=== PATIENT | male | born 1970 | race Caucasian/White ===

== ENCOUNTER 2019-05-16 12:22 | Observation (INO) | payer SELFPAY ==
[2019-05-16 13:05] LABS: Hemoglobin 9.3 g/dL (14.0-18.0); Mean Corpuscular HGB CONC 28.7 g/dL (32.0-36.0); Mean Corpuscular Hemoglobin 19.8 pg (27.0-31.0); Mean Corpuscular Volume 68.8 fL (78.0-98.0); Mean Platelet Volume 6.6 fL (7.4-10.4); Platelet Count 62 thou/uL (130-400); RBC Distribution Width 20.7 % (11.5-14.5); White Blood Cell (WBC) Count 3.9 thou/uL (4.8-10.8)
[2019-05-16 13:27] LABS: ALT (SGPT) 24 U/L (8-55); AST (SGOT) 64 U/L (5-34); Alkaline Phosphatase 414 U/L (40-150); Anion Gap 14 mmol/L (10-20); BUN (Urea Nitrogen) 4 mg/dL (8.9-20.6); Bilirubin, Total 3.7 mg/dL (0.2-1.2); Calc. Creatinine Clearance 0 mL/min (70-130); Calcium 8.9 mg/dL (7.8-10.44); Carbon Dioxide 23 mmol/L (22-29); Chloride 104 mmol/L (98-107); Estimated GFR-MDRD Greater than 90; Globulin 3.6 g/dL (2.4-3.5); Glucose 250 mg/dL (70-105); Potassium 3.6 mmol/L (3.5-5.1); Protein, Total 6.6 g/dL (6.0-8.3); Sodium 137 mmol/L (136-145)
[2019-05-16 13:32] LABS: Band 10 % (5-11); Eosinophils 2 % (0-10); Hypochromia MODERATE=16-30 cells (100X) (0-5/hpf); Lymphocytes 22 % (21-51); MDiff Complete? YES; Microcytosis MODERATE=15-30 cells (100X) (0-5/hpf); Monocytes 7 % (0-10); Neutrophil 59 % (42-75); Ovalocytes MODERATE= 6-15 cells (100X) (0-1/hpf); Platelet Morphology Comment Appears Decreased; Polychromasia SLIGHT = 2-3 cells (100X) (0-2/hpf); Target Cells SLIGHT = 2-5 cells (100X) (0-1/hpf)
--- NOTE | 2019-05-16 14:15 | RAD ---
XR Chest 1 View Portable HISTORY: Dyspnea COMPARISON: 04/18/2018 FINDINGS: The heart size is normal. The lungs are well expanded without focal areas of consolidation, pneumothorax or pleural effusions. There is elevation of the right hemidiaphragm. There are postop changes and metallic hardware in the lower cervical spine. IMPRESSION: No radiographic evidence of acute cardiopulmonary process.
[2019-05-16] MEDS ORDERED: ISOVUE-370 76%-LOCM 1 ML ONE (14:50)
[2019-05-16] MEDS ORDERED: Furosemide 40 MG/4 ML VIAL ONE (15:49)
--- NOTE | 2019-05-16 17:15 | CT ---
CTA CHEST WITH CONTRAST: INDICATIONS: Shortness of breath. TECHNIQUE: Axial tomograms obtained with multiplanar reconstruction and 3D post processing, following angio prot ocol. FINDINGS: The pulmonary arteries show adequate opacification, although there is artifact in the peripheral gabbie ernestine. No definite pulmonary embolus identified. Lungs show no focal infiltrate. Mild bibasilar atelectasis. No evidence of mediastinal adenopathy. Images through the upper abdomen reveal splenic varices, suggesting portal hypertension. This has be en described previously. Small hepatic cysts and small volume ascites is noted in the upper abdomen. IMPRESSION: 1. No evidence of proximal pulmonary embolus. 2. No acute lung process. 3. Images through the upper abdomen show evidence of portal hypertension with splenic varices and sm all volume ascites. 4. Mild vascular engorgement and borderline cardiomegaly. POS: [facility]
[2019-05-16] MEDS ORDERED: HumaLOG 300 UNITS/3 ML VIAL SC PRN ×2 (18:41)
[2019-05-16] MEDS ORDERED: Dextrose 5% in Water 1,000 ML IV PRN (18:41)
[2019-05-16] MEDS ORDERED: Dextrose 50% Abboject 50 ML SYRINGE SLOW IVP PRN (18:41)
[2019-05-16] MEDS ORDERED: Acetaminophen 325 MG TAB PO PRN (19:40)
[2019-05-16] MEDS ORDERED: Ondansetron PF 4 MG/2 ML Vial IVP PRN (19:40)
[2019-05-16] MEDS ORDERED: Ondansetron ODT 4 MG TAB PO PRN (19:40)
[2019-05-16 20:40] LABS: Iron 131 ug/dL (65-175); Iron Binding Capacity, Total 334 mcg/dL (261-462)
[2019-05-16 21:06] VITALS: BMI 34.2
[2019-05-16] MEDS ORDERED: ALPRAZolam 0.5 MG TAB PO SCH (22:30)
--- NOTE | 2019-05-17 03:13 | HP ---
PRIMARY CARE PHYSICIAN: Dr. Ludwig Cabezas. CHIEF COMPLAINT: Shortness of breath with exertion. HISTORY OF PRESENT ILLNESS: Mr. Crowley is a 49-year-old man who had presented to [facility] earlier today after he experienced worsening shortness of breath and orthopnea over the last 2 days. He states that this is actually progressing over the last 2 to 3 weeks, and he has also noticed worsening swelling down his lower extremities along with his abdomen. He has a past medical history of hypertension and diabetes mellitus. During his initial workup, his troponin was found to be normal. BNP was also found to be normal at 46.0. Hemoglobin was low at 9.3, which seems to be chronic for him and his iron studies are pending. D-dimer was slightly elevated at 2.16, which has also been noted to be elevated in the past; however, CTA of the chest was negative for PE at this time, and lower extremity Doppler is now pending. He was given a dose of Lasix in the ER of 40 mg IV and he states that this has helped with his shortness of breath. Blood pressure and other vital signs remained stable. His O2 saturations remained in the 90s on room air, he states that he is supposed to use CPAP at night; however, he is not able to wear due to feeling claustrophobic. He had denied any fever, chills, any headache, blurred vision, dizziness, any chest pain, palpitations, abdominal pain, nausea, vomiting, or change in his stool. REVIEW OF SYSTEMS: All other systems reviewed and found to be negative unless mentioned in the HPI. PAST MEDICAL HISTORY: Significant for hypertension and diabetes mellitus. PAST SURGICAL HISTORY: Hernia repair, back surgery, neck surgery, and ruptured ulcer repair. PSYCHIATRIC HISTORY: Includes anxiety and depression. SOCIAL HISTORY: The patient reports drinking socially, less than 5 drinks a week. He is a former tobacco smoker. He denied any use of cigarettes currently and also denied any illicit drug use. KNOWN ALLERGIES: PIPER inhibitors, penicillins, and vancomycin. CURRENT HOME MEDICATIONS: 1. Glyburide 5 mg oral twice daily. 2. Metformin 1000 mg oral twice daily. 3. Escitalopram 20 mg oral daily. PHYSICAL EXAMINATION: VITAL SIGNS: BP 127/69, pulse 88, respirations 20, O2 saturation 100% on room air, temperature 98.9 degrees Fahrenheit. GENERAL: The patient is awake, alert, and oriented x3. He is currently lying comfortably in bed and in no acute distress. HEENT: Atraumatic, normocephalic. Pupils are round and reactive to light. Extraocular muscles intact. Moist mucous membranes noted. NECK: Soft and supple. Trachea midline. CARDIOVASCULAR: Positive S1 and S2. Regular rate and rhythm. No murmur auscultated. RESPIRATORY: Clear to auscultation bilaterally. No wheezes, rales, or rhonchi. ABDOMEN: Soft, nontender, slightly distended. Bowel sounds present. MUSCULOSKELETAL: Strength 5+ bilaterally upper and lower extremities. Pedal and radial pulses 2+ bilaterally. Moves all extremities equal. 3+ nonpitting edema noted on the left leg and 2 to 3+ noted on the right. NEUROLOGIC: Cranial nerves II through XII grossly intact. No focal deficits noted. Speech intact and normal. Gait, not assessed. SKIN: Warm, dry, and intact. No rashes. No ulceration noted. PSYCHIATRIC: Good mood and affect. LABORATORY DATA: WBC 3.9, RBC 4.70, hemoglobin 9.3, hematocrit 32.3, platelets 62. D-dimer of 2.16. Sodium 137, potassium 3.6, anion gap 14, BUN 4, creatinine 0.66, estimated GFR greater than 90, glucose 250. Troponin 0.019. BNP 46.0. DIAGNOSTIC IMAGIN. Portable chest x-ray showed no evidence of acute cardiopulmonary process. 2. CTA of chest showed no evidence of pulmonary embolism with no acute lung process noted, small volume ascites noted, and mild vasculature encroachment and borderline cardiomegaly noted. ASSESSMENT AND PLAN: 1. Shortness of breath. The patient will be treated with IV furosemide daily. We will also check an echocardiogram. D-dimer was elevated at 2.16. However, CTA of chest showed no evidence of pulmonary embolism at this time. 2. Hypertension. Continue to monitor vital signs and we will add p.r.n. medications. 3. Diabetes mellitus. Continue glyburide and add insulin sliding scale with frequent Accu-Cheks. Hold home dose of metformin. 4. Mild ascites and history of cirrhosis, currently stable at this time. 5. Deep venous thrombosis and gastrointestinal prophylaxis. CODE STATUS: Full code. DISPOSITION: Pending further workup and clinical findings. Job ID: [id number]
[2019-05-17 06:45] LABS: Anion Gap 11 mmol/L (10-20); BUN (Urea Nitrogen) 7 mg/dL (8.9-20.6); Calc. Creatinine Clearance 254 mL/min (70-130); Calcium 8.5 mg/dL (7.8-10.44); Carbon Dioxide 24 mmol/L (22-29); Chloride 105 mmol/L (98-107); Estimated GFR-MDRD Greater than 90; Glucose 120 mg/dL (70-105); Potassium 3.2 mmol/L (3.5-5.1); Sodium 137 mmol/L (136-145)
[2019-05-17 07:17] LABS: #Eosinphils 0.1 thou/uL (0.0-0.7); #Monocytes 0.4 thou/uL (0.11-0.59); #Neutrophils 1.1 thou/uL (1.40-6.50); %Basophils 1.4 % (0.0-1.0); %Eosinophils 5.6 % (0.0-10.0); %Lymphocytes 37.1 % (21.0-51.0); %Monocytes 14.8 % (0.0-10.0); %Neutrophils 41.1 % (42.0-75.0); Hemoglobin 8.9 g/dL (14.0-18.0); Mean Corpuscular HGB CONC 29.7 g/dL (32.0-36.0); Mean Corpuscular Hemoglobin 20.5 pg (27.0-31.0); Mean Corpuscular Volume 69.1 fL (78.0-98.0); Mean Platelet Volume 10.7 fL (7.4-10.4); Platelet Count 67 thou/uL (130-400); RBC Distribution Width 20.5 % (11.5-14.5); Red Blood Cell (RBC) Count 4.35 mill/uL (4.70-6.10); White Blood Cell (WBC) Count 2.6 thou/uL (4.8-10.8)
--- NOTE | 2019-05-17 07:45 | ULT ---
EXAM: Bilateral lower extremity venous Doppler US HISTORY: bilateral lower extremity edema and pain FINDINGS: Grayscale, color-flow, Doppler evaluation, spectral analysis of the bilateral lower extremities venou s structures is performed with 2-D imaging. The bilateral common femoral, superficial femoral, popliteal, posterior tibial, proximal greater saphenous and profunda femoral veins are imaged. There is normal luminal compressibility, flow, and augmentation in the visualized deep venous structu res of the bilateral lower extremities. IMPRESSION: No evidence of a deep vein thrombosis in either lower extremity.
[2019-05-17] MEDS ORDERED: Potassium Chloride 20 MEQ TAB PO SCH (08:15)
[2019-05-17] MEDS: Furosemide 40 MG/4 ML VIAL SLOW IVP SCH (08:26)
[2019-05-17] MEDS: Escitalopram Oxalate 20 mg Tablet PO SCH (08:26)
[2019-05-17] MEDS: glyBURIDE 5 MG TAB PO SCH ×2 (08:26→17:45)
[2019-05-17 08:36] LABS: Hypochromia MODERATE=16-30 cells (100X) (0-5/hpf); MDiff Complete? YES; Microcytosis MODERATE=15-30 cells (100X) (0-5/hpf); Ovalocytes SLIGHT = 2-5 cells (100X) (0-1/hpf); Platelet Morphology Comment Appears Decreased; Polychromasia SLIGHT = 2-3 cells (100X) (0-2/hpf); Reflex for Review?? NO; Target Cells SLIGHT = 2-5 cells (100X) (0-1/hpf)
[2019-05-17] MEDS ORDERED: Enoxaparin Sodium 40 MG/0.4 ML SYRINGE SC SCH (09:00)
--- NOTE | 2019-05-17 10:29 | PDOC.HOSPP ---
- Subjective Encounter Date: 05/17/19 Encounter Time: 10:30 Subjective: Patient states he continues to have intermittent shortness of breath. This is more prominent when he is asleep and suddenly wakes up gasping. States he feels as if he stops breathing or isnt getting enough air. Has tried sleeping with the head of the bed up and sat in a chair and still has the same trouble. Reports vomiting twice, once yesterday after dinner and after breakfast this morning. States its a small amount of food without any blood. Typically starts with coughing following by dry heaving and then vomits. Other times in between he has had coughing fits with dry heaving. No abdominal pain. Afebrile. Denies sweats or tremors. Admits to drinking 6 beers a day approximately 5-6 days a week. He often drinks at night but some days drinks in the morning. Reports "checking" himself by going a week without drinking every once in a while, and has not experienced any withdrawal symptoms in the past. No history of seizures or tremors or agitation. - Objective Vital Signs & Weight: Vital Signs (12 hours) Temp Pulse Resp BP Pulse Ox 05/17/19 07:48 98.2 F 81 24 H 138/67 100 05/17/19 04:26 98.9 F 79 13 147/70 H 97 Weight Weight 259 lb 8 oz I&O: 05/16/19 05/17/19 05/18/19 06:59 06:59 06:59 Intake Total 500 Balance 500 Result Diagrams: 05/17/19 06:12 05/17/19 06:12 Additional Labs: Accuchecks 05/16/19 21:05 POC Glucose 212 H ROS - Review of Systems Constitutional: reports: malaise. denies: fever, chills, sweats, weakness, other Eyes: denies: pain, vision change, conjunctivae inflammation, eyelid inflammation, redness ENT: denies: ear pain, ear discharge, nose pain, nose discharge, nose congestion , mouth pain, mouth swelling, throat pain, throat swelling, other Respiratory: reports: cough, dry Cardiovascular: reports: paroxysmal noc. dyspnea. denies: chest pain, palpitations, orthopnea, edema, light headedness Gastrointestinal: reports: nausea, vomitting. denies: abdominal pain, diarrhea , constipation, melena, hematochezia Genitourinary: denies: dysuria, frequency, incontinence, hematuria, retention Musculoskeletal: denies: neck pain, shoulder pain, arm pain, back pain, hand pain, leg pain, foot pain Skin: denies: rash, lesions Neurological: denies: weakness, numbness, incoordination, change in speech, confusion, seizures - Medication Medications: Active Medications Generic Name Dose Route Start Last Admin Trade Name Merlyn PRN Reason Stop Dose Admin Enoxaparin Sodium 40 mg 05/17/19 09:00 05/17/19 08:26 Lovenox SC 40 mg 0900 HARPREET Administration Escitalopram Oxalate 20 mg 05/17/19 09:00 05/17/19 08:26 Lexapro PO 20 mg DAILY HARPREET Administration Furosemide 40 mg 05/17/19 09:00 05/17/19 08:26 Lasix SLOW IVP 40 mg DAILY HARPREET Administration Glyburide 5 mg 05/17/19 07:30 05/17/19 08:26 Diabeta PO 5 mg BID-AC HARPREET Administration - Exam NAD, awake alert Eye: PERRL, scleral icterus ENT: normocephalic atraumatic, no oropharyngeal lesions, moist mucosa Neck: supple, symmetric, no JVD, no thyromegaly, no lymphadenopathy Heart: RRR, no murmur, no gallops, no rubs, normal peripheral pulses Respiratory: CTAB, no wheezes, no rales, no ronchi, normal chest expansion, no tachypnea Gastrointestinal: soft, non-tender, normal bowel sounds, no palpable masses, distended Extremities: no cyanosis, no clubbing, 1+ LE edema Skin: normal turgor, no lesions, no rashes Neurological: CN's grossly intact, normal sensation to touch, no weakness, no focal deficits, no new deficit Musculoskeletal: normal tone, normal strength, no muscle wasting Psychiatric: normal affect, normal behavior, A&O x 3 Hosp A/P (1) Shortness of breath Code(s): R06.02 - SHORTNESS OF BREATH Status: Acute Plan: No associated chest pain. Happens intermittently while he is sleeping. D-Dimer elevated, CTA: negative for PE. Has bilateral doppler due to long standing left leg swelling, no evidence of DVT. Sats normal. Continue to monitor. Known history of diastolic dysfunction, EF 45-50% on Echo in 2017. BNP normal. Will discuss with Dr. Cabrera if repeat indicated. (2) Vomiting Code(s): R11.10 - VOMITING, UNSPECIFIED Status: Acute Plan: Occurs following coughing fit. Will try treating underlying cough with Guaifenesin and Tessalon. Continue anti-emetics. (3) Abnormal LFTs Code(s): R79.89 - OTHER SPECIFIED ABNORMAL FINDINGS OF BLOOD CHEMISTRY Status : Acute Plan: Hyperbilirubinemia, known to have alcohol induced liver disease. Will recheck LFTs today including direct bili. RUQ US. Will check ammonia. Noted to have portal HTN on CTA. (4) Hypokalemia Code(s): E87.6 - HYPOKALEMIA Status: Acute Plan: Replace and continue to monitor. (5) Alcohol abuse Code(s): F10.10 - ALCOHOL ABUSE, UNCOMPLICATED Status: Acute Plan: ASE protocol. Ativan 0.5 mg x 1, as seems to be experiencing some anxiety. No tremors at present. Continue to monitor.
[2019-05-17] MEDS ORDERED: Lorazepam 0.5 MG TAB PO SCH (10:30)
[2019-05-17 11:19] LABS: ALT (SGPT) 24 U/L (8-55); AST (SGOT) 62 U/L (5-34); Alkaline Phosphatase 294 U/L (40-150); Bilirubin, Direct 2.8 mg/dL (0.1-0.3); Bilirubin, Total 8.5 mg/dL (0.2-1.2); Lipase 26 U/L (8-78); Protein, Total 6.9 g/dL (6.0-8.3)
[2019-05-17 15:44] LABS: INR-International Normal Ratio 2.1; Prothrombin Time 23.2 SEC (12.0-14.7)
--- NOTE | 2019-05-17 18:29 | ULT ---
ULTRASOUND ABDOMEN: Date: 05/17/19 HISTORY: Abdominal distention, cirrhosis, elevated LFTs. FINDINGS: The liver demonstrates coarse and increased echogenicity with irregular surface consistent with cirrh osis. There is a 1.6 cm cyst in the inferior aspect of the right lobe of the liver. The patient is po st cholecystectomy. The common duct measures 8 mm in diameter. An 9 mm cyst is seen in the left lobe of the liver. The spleen is enlarged, measuring 15 cm in length. There is a 2.3 cm exophytic cyst farnaz sing from the left kidney. The right kidney is normal. The right kidney and visualized portions of th e pancreas, aorta, and IVC are normal. There is centrifugal flow in the portal veins. No definite evidence of portal vein thrombosis is seen . There are splenic varices. No ascites is identified. IMPRESSION: 1. Cirrhosis of the liver. 2. Splenomegaly. 3. Centrifugal flow in the portal veins. 4. Hepatic cysts. 5. Left renal cyst. POS: [facility]
[2019-05-17] MEDS ORDERED: ALPRAZolam 0.5 MG TAB PO SCH (23:59)
[2019-05-18 05:24] LABS: INR-International Normal Ratio 2.1; Prothrombin Time 23.3 SEC (12.0-14.7)
[2019-05-18 05:40] LABS: Anisocytosis SLIGHT = 6-15 cells (100X) (0-5/hpf); Band 8 % (5-11); Eosinophils 3 % (0-10); Hemoglobin 9.1 g/dL (14.0-18.0); Lymphocytes 35 % (21-51); MDiff Complete? YES; Mean Corpuscular HGB CONC 29.1 g/dL (32.0-36.0); Mean Corpuscular Hemoglobin 20.1 pg (27.0-31.0); Mean Corpuscular Volume 69.2 fL (78.0-98.0); Mean Platelet Volume 7.2 fL (7.4-10.4); Monocytes 12 % (0-10); Neutrophil 42 % (42-75); Platelet Count 73 thou/uL (130-400); Platelet Morphology Comment Appears Decreased; Poikilocytosis SLIGHT = 6-15 cells (100X) (0-5/hpf); RBC Distribution Width 20.5 % (11.5-14.5); Red Blood Cell (RBC) Count 4.52 mill/uL (4.70-6.10); Target Cells SLIGHT = 2-5 cells (100X) (0-1/hpf); White Blood Cell (WBC) Count 3.5 thou/uL (4.8-10.8)
[2019-05-18 05:42] LABS: Anion Gap 11 mmol/L (10-20); BUN (Urea Nitrogen) 8 mg/dL (8.9-20.6); Calc. Creatinine Clearance 204 mL/min (70-130); Calcium 8.8 mg/dL (7.8-10.44); Carbon Dioxide 25 mmol/L (22-29); Chloride 105 mmol/L (98-107); Estimated GFR-MDRD Greater than 90; Glucose 124 mg/dL (70-105); Potassium 3.5 mmol/L (3.5-5.1); Sodium 137 mmol/L (136-145)
[2019-05-18] MEDS: Escitalopram Oxalate 20 mg Tablet PO SCH (08:23)
[2019-05-18] MEDS: Furosemide 40 MG/4 ML VIAL SLOW IVP SCH (08:23)
[2019-05-18] MEDS: glyBURIDE 5 MG TAB PO SCH (08:26)
[2019-05-18 09:08] LABS: ALT (SGPT) 23 U/L (8-55); AST (SGOT) 58 U/L (5-34); Albumin 2.7 g/dL (3.5-5.0); Alkaline Phosphatase 205 U/L (40-150); Bilirubin, Direct 2.2 mg/dL (0.1-0.3); Bilirubin, Total 6.1 mg/dL (0.2-1.2); Protein, Total 6.4 g/dL (6.0-8.3)
[2019-05-18 16:08] VITALS: BP 153/73; TEMP 98
--- NOTE | 2019-05-18 19:19 | DIS ---
DATE OF ADMISSION: 05/16/2019 DATE OF DISCHARGE: 05/18/2019 CONSULTING PHYSICIAN: None. DISCHARGE DIAGNOSES: 1. Elevated LFTs including hyperbilirubinemia secondary to alcohol induced cirrhosis. 2. Alcohol abuse. 3. Anxiety causing occasional shortness of breath at night. 4. Hypertension. 5. Type 2 diabetes mellitus. 6. Obesity. HOSPITAL COURSE: Mr. Crowley is a 49-year-old gentleman who presented due to concerns of occasional shortness of breath. He is experiencing while sleeping. The patient described no shortness of breath when lying flat. No shortness of breath with exertion and stated that he would suddenly wake up gasping for air and feeling like his heart was racing. He states he has been off alcohol recently and every once in a while, takes 1 week break from his heavy drinking. He normally drinks 6 to 8 beers a day. He does report feeling anxious. Nonetheless, he underwent further investigations including a CT angiogram which did not show any evidence of PE. He had no acute lung process noted. There were however, changes seen involving the liver with evidence of portal hypertension and splenic varices as well as small volume ascites. There was mild vascular engorgement and borderline cardiomegaly present as well. Due to longstanding left lower extremity edema, he underwent venous Dopplers, which showed no evidence of DVT. The patient states this is longstanding and frequently responds well to diuretics. He underwent a chest x-ray that showed no evidence of acute cardiopulmonary process. Laboratory studies done had demonstrated elevated liver function tests with a bilirubin of 3.7, which trended upward to 8.5 and then back down to 6.1 on day of discharge. His AST was 64, ALT was 24. These remained stable throughout his stay and slightly improved. The patient is known to have chronic anemia associated with his heavy alcohol intake. His renal function was within normal range. We did check his coagulation studies given the underlying cirrhosis and he had a normal INR of 2.1 and PTT 23.2. Following further discussion with Dr. Flores, it was advised that we check his AFP again due to his underlying alcoholism and cirrhosis. This was normal at 6.5. The patient did undergo further imaging with an abdominal ultrasound, which showed cirrhosis of the liver, splenomegaly, centrifugal flow in the portal veins, hepatic cysts and left renal cyst. No ascites was demonstrated. He had an echocardiogram done, which showed an EF of 50% to 55% with a normal-sized left ventricle and left atrium. There was mild mitral regurgitation and mild tricuspid regurgitation. The patient remained symptom-free throughout his stay and had no further episodes since given Ativan. He denies having any chest pain. He was experiencing occasional vomiting after meals, but that has resolved. He has been tolerating his diet during his stay with no further vomiting. Denies any abdominal pain. Has been mobilizing without any shortness of breath on exertion or lightheadedness. The patient feels well in himself and eager for discharge home. The patient was seen and examined on day of discharge. CONDITION: Stable. ACTIVITY: As tolerated. DIET: Heart healthy/diabetic diet. DISCHARGE MEDICATIONS: 1. The patient was given a prescription for Ativan 0.5 mg p.o. every 4-6 hours as needed for anxiety, but mainly requires this at bedtime as his episodes occur while he is sleeping. He was given a quantity of 10 tablets only. 2. Advised to resume all other home medications. FOLLOWUP: The patient advised to follow up with his primary care physician within 1 week for further management of his anxiety as well as repeat laboratory studies including LFTs. The patient will benefit from referral with regard to his alcohol-related cirrhosis. He is also interested in attending alcoholic anonymous program as he is interested in discontinuing alcohol intake. Information sheets provided to the patient. DISPOSITION: The patient medically cleared for discharge home on 05/18/2019. The patient's case discussed with attending who agrees with plan of care as described above. Job ID: [id number]
== END 2019-05-18 17:08 | disposition home or self-care (01) ==
LOC: MERGE 12:22 → ERS 12:22 → 2SW 15:25
PROVIDERS: ADMIT Internal Medicine; ATTEND Internal Medicine
DX: R06.02 Shortness of breath (principal); K76.6 Portal hypertension; K70.31 Alcoholic cirrhosis of liver with ascites; E80.6 Other disorders of bilirubin metabolism; I10 Essential (primary) hypertension; E11.9 Type 2 diabetes mellitus without complications; F41.8 Other specified anxiety disorders; F32.9 Major depressive disorder, single episode, unspecified; E66.9 Obesity, unspecified; Z68.30 Body mass index [BMI] 30.0-30.9, adult; Z87.891 Personal history of nicotine dependence; Z79.84 Long term (current) use of oral hypoglycemic drugs; Z79.899 Other long term (current) drug therapy; Z88.0 Allergy status to penicillin; Z88.1 Allergy status to other antibiotic agents; Z88.8 Allergy status to other drugs, medicaments and biological substances
CPT/HCPCS: 36415; 36416; 71045; 71275; 76700; 80048; 80053; 80076; 82105; 82140; 82728; 83540; 83550; 83605; 83690; 83880; 84145; 84484; 85025; 85379; 85610; 93005; 93306; 93970; 96372; 96374; 96375; 96376; G0378; J1650; J1940; J2405; Q9966

== ENCOUNTER 2020-04-23 23:25 | Inpatient (IN) | payer SELFPAY, OTHER ==
[2020-04-24 00:28] LABS: ALT (SGPT) 53 U/L (8-55); AST (SGOT) 300 U/L (5-34); Alkaline Phosphatase 254 U/L (40-110); Anion Gap 22 mmol/L (10-20); BUN (Urea Nitrogen) 10 mg/dL (8.9-20.6); Band 48 % (5-11); Bilirubin, Total 8.1 mg/dL (0.2-1.2); Calc. Creatinine Clearance 0 mL/min (70-130); Calcium 8.9 mg/dL (7.8-10.44); Carbon Dioxide 18 mmol/L (22-29); Chloride 93 mmol/L (98-107); Estimated GFR-MDRD 84; Glucose 430 mg/dL (70-105); Hemoglobin 10.2 g/dL (14.0-18.0); Lymphocytes 3 % (21-51); MDiff Complete? YES; Mean Corpuscular HGB CONC 30.1 g/dL (32.0-36.0); Mean Corpuscular Volume 79.5 fL (78.0-98.0); Mean Platelet Volume 7.2 fL (7.4-10.4); Monocytes 4 % (0-10); Neutrophil 45 % (42-75); Platelet Count 42 thou/uL (130-400); Platelet Morphology Comment Appears Decreased; Potassium 3.7 mmol/L (3.5-5.1); RBC Distribution Width 19.7 % (11.5-14.5); Red Blood Cell (RBC) Count 4.26 mill/uL (4.70-6.10); Reflex for Review?? NO; Sodium 129 mmol/L (136-145); White Blood Cell (WBC) Count 8.8 thou/uL (4.8-10.8)
[2020-04-24 01:00] LABS: CKMB 29.4 ng/mL (0-6.6)
[2020-04-24] MEDS ORDERED: Multivitamins, Adult 10 ML, Thiamine HCl 100 MG, Folic Acid 1 MG in Dextrose 5 %-0.45 %... IV SCH (01:00)
[2020-04-24 01:02] LABS: Amphetamine Not Detected (NotDetected); Bacteria/HPF None Seen HPF (None Seen); Barbiturates Screen Not Detected (NotDetected); Benzodiazepine Screen Not Detected (NotDetected); Bilirubin Negative (Negative); Blood, Urine 3+ (Negative); Clarity Clear (Clear); Cocaine Metabolite Screen Not Detected (NotDetected); Glucose, Urine (Dipstick) Greater than 1000 mg/dL (Negative); Ketone, Urine Negative (Negative); Leukocyte Negative Leu/uL (Negative); Medtox Reader # READER 4; Methadone Not Detected (NotDetected); Methamphetamine Not Detected (NotDetected); Nitrite Negative (Negative); Opiate Screen Not Detected (NotDetected); Oxycodone Screen Not Detected (NotDetected); Phencyclidine (PCP) Not Detected (NotDetected); Protein, Urine (Dipstick) 20 mg/dL (Neg-Trace); RBC/HPF 0-3 HPF (0-3); Specific Gravity, Urine 1.022 (1.002-1.036); Squamous Epithelial 0-3 HPF (0-3); THC/Cannabinoid Screen Not Detected (NotDetected); Tricyclic Screen Not Detected (NotDetected); Urobilinogen Normal mg/dL (Less than 2); WBC/HPF 0-3 HPF (0-3); pH, Urine 5.5 (5.0-9.0)
[2020-04-24 01:03] LABS: Medtox Control Line Valid? VALID (VALID)
[2020-04-24 01:04] LABS: Acetaminophen Less than 6.0 mcg/mL (10.0-30.0); Alcohol Less than 10 mg/dL (Less than 10); Salicylate Less than 8.0 mg/dL (15.0-30.0)
[2020-04-24] MEDS ORDERED: Morphine 4 MG/ML VIAL ONE (01:45)
[2020-04-24] MEDS ORDERED: Acetaminophen 325 MG TAB ONE ×2 (01:45→02:24)
[2020-04-24] MEDS ORDERED: Dextrose 50% Abboject 50 ML SYRINGE SLOW IVP PRN (01:54)
[2020-04-24] MEDS ORDERED: Lorazepam 2 MG/ML VIAL SLOW IVP PRN (01:54)
[2020-04-24] MEDS ORDERED: HYDROcodone/Acetaminophen 5/325 mg Tablet PO PRN (01:54)
[2020-04-24] MEDS ORDERED: Dextrose 5% in Water 1,000 ML IV PRN (01:54)
[2020-04-24] MEDS ORDERED: Ondansetron PF 4 MG/2 ML Vial IVP PRN (01:54)
[2020-04-24] MEDS ORDERED: Ondansetron ODT 4 MG TAB PO PRN (01:54)
--- NOTE | 2020-04-24 02:06 | PDOC.HHP ---
Hospitalist HPI - History of Present Illness weakness History of Present Illness: Case of an 49y/o male with pmhx of cirrohsisi secondary to alcohol abuse, dm htn and pud who comes to hospital due to generalize weakness. apparently patient was on his usual state of health until wednesday morning when he woke up and refers he was almost unable to move. he states that to go to the bathroom he had to crawl on the floor and suffered multiple falls trying to walk. weakness was progressive and not improving for which he was brought to hospital for evaluation. At the ED patient was dx with rhambdomyolysis and had a negative trauma workup for which hospitalist was called for further evaluation and management. patient states last time he drank alcohol was on wednesday evening and has not had any withdrawal symptoms, patient refers whole body muscle aches and generalize weakness. denies any fever chills, focal weakness does refers he felt a bit confused but no LOC. patient states he has a poor diet, last time he ate was 2 days ago, mother states he sometimes is on the bed the whole day Hospitalist ROS - Review of Systems All other systems reviewed; all pertinent +/- noted in HPI/Subj Hospitalist History - Past Medical History Source: patient, family Cardiac: reports: HTN Endocrine: reports: Diabetes - Past Surgical History Past Surgical History: reports: Hernia Repair - Family History Family History: reports: diabetes mellitus, hypertension - Social History Smoking Status: Current every day smoker Alcohol: reports: Heavy Drugs: reports: none - Exam General Appearance: NAD, awake alert Eye: PERRL, anicteric sclera ENT: no oropharyngeal lesions ENT - other findings: raccon eyes, bruise nose Neck: supple, symmetric, no JVD, no thyromegaly Heart: RRR, no murmur, no gallops Respiratory: CTAB, no wheezes, no rales, no ronchi Gastrointestinal: soft, non-tender, non-distended Extremities: no cyanosis, no clubbing, no edema Skin: normal turgor, no lesions Neurological: cranial nerve grossly intact, normal sensation to touch Musculoskeletal: normal tone, generalized weakness Psychiatric: normal affect, normal behavior, A&O x 3 Hospitalist Results - Labs Result Diagrams: 04/23/20 23:40 04/23/20 23:40 Lab results: WBC 8.8 thou/uL (4.8-10.8) 04/23/20 23:40 Hgb 10.2 g/dL (14.0-18.0) L 04/23/20 23:40 Hct 33.9 % (42.0-52.0) L 04/23/20 23:40 MCV 79.5 fL (78.0-98.0) 04/23/20 23:40 Plt Count 42 thou/uL (130-400) L 04/23/20 23:40 Band Neuts % (Manual) 48 % (5-11) H 04/23/20 23:40 Sodium 129 mmol/L (136-145) L 04/23/20 23:40 Potassium 3.7 mmol/L (3.5-5.1) 04/23/20 23:40 Chloride 93 mmol/L (98-107) L 04/23/20 23:40 Carbon Dioxide 18 mmol/L (22-29) L 04/23/20 23:40 BUN 10 mg/dL (8.9-20.6) 04/23/20 23:40 Creatinine 0.95 mg/dL (0.7-1.3) 04/23/20 23:40 Glucose 430 mg/dL (70-105) H 04/23/20 23:40 Calcium 8.9 mg/dL (7.8-10.44) 04/23/20 23:40 Total Bilirubin 8.1 mg/dL (0.2-1.2) H 04/23/20 23:40 AST 300 U/L (5-34) H 04/23/20 23:40 ALT 53 U/L (8-55) 04/23/20 23:40 Alkaline Phosphatase 254 U/L (40-110) H 04/23/20 23:40 Ammonia 45 umol/L (18-72) 04/24/20 00:37 Creatine Kinase 22026 U/L (30-200) H 04/24/20 00:00 CK-MB (CK-2) 29.4 ng/mL (0-6.6) H* 04/23/20 23:40 Troponin I 0.336 ng/mL (< 0.028) H* 04/23/20 23:40 Serum Total Protein 7.0 g/dL (6.0-8.3) 04/23/20 23:40 Albumin 3.0 g/dL (3.5-5.0) L 04/23/20 23:40 Urine Ketones Negative mg/dL (Negative) 04/24/20 00:20 Urine Blood 3+ (Negative) A 04/24/20 00:20 Urine Nitrite Negative (Negative) 04/24/20 00:20 Ur Leukocyte Esterase Negative Greg/uL (Negative) 04/24/20 00:20 Urine RBC 0-3 HPF (0-3) 04/24/20 00:20 Urine WBC 0-3 HPF (0-3) 04/24/20 00:20 Ur Squamous Epith Cells 0-3 HPF (0-3) 04/24/20 00:20 Urine Bacteria None Seen HPF (None Seen) 04/24/20 00:20 - Radiology Interpretation Other Status: image reviewed by me Additional Comment: brain ct, neck ct face ct full trauma workup negative, head ct did showed a nasal fracture of undetermine age Hospitalist H&P A/P - Problem (1) Rhabdomyolysis Code(s): M62.82 - RHABDOMYOLYSIS Status: Acute Qualifiers: Rhabdomyolysis type: traumatic (2) Alcohol abuse Code(s): F10.10 - ALCOHOL ABUSE, UNCOMPLICATED Status: Acute (3) Cirrhosis, alcoholic Code(s): K70.30 - ALCOHOLIC CIRRHOSIS OF LIVER WITHOUT ASCITES Status: Acute (4) Hyponatremia Code(s): E87.1 - HYPO-OSMOLALITY AND HYPONATREMIA Status: Acute (5) DM type 2 (diabetes mellitus, type 2) Status: Chronic (6) Hypertension Code(s): I10 - ESSENTIAL (PRIMARY) HYPERTENSION Status: Chronic (7) Elevated troponin Code(s): R79.89 - OTHER SPECIFIED ABNORMAL FINDINGS OF BLOOD CHEMISTRY Status : Acute - Plan Plan: 49y/o male dx with rhabdomyolysis rhabdomyolysis - ivfs - pain management - f/u cpk - monitor renal function and electrolites alcohol abuse / cirrhosis - receive banana bag at ED at arrival - will start thiamine and folic acid po -ativan prn for withdrawal symptoms hyponatremia - likely related to alcohol abuse - on ivfs - f/u bmps htn - systolic b/p in the low hundreds has no taken medication in the last couple of days, will hold for now dm -accu checks and ss - long acting insulin hs -adjust as necessary elevated troponin -likely stemi type 2 - follow series to evaluate trend thrombocytopenia - likely related to cirrhosis - seems to be chronic
[2020-04-24 02:55] LABS: Hemoglobin 9.2 g/dL (14.0-18.0); Mean Corpuscular HGB CONC 30.8 g/dL (32.0-36.0); Mean Corpuscular Hemoglobin 24.3 pg (27.0-31.0); Mean Corpuscular Volume 78.9 fL (78.0-98.0); Mean Platelet Volume 6.9 fL (7.4-10.4); Platelet Count 32 thou/uL (130-400); RBC Distribution Width 19.7 % (11.5-14.5); Red Blood Cell (RBC) Count 3.78 mill/uL (4.70-6.10)
[2020-04-24 03:16] LABS: Troponin I 0.258 ng/mL (< 0.028)
[2020-04-24 03:22] LABS: ALT (SGPT) 49 U/L (8-55); AST (SGOT) 272 U/L (5-34); Albumin 2.7 g/dL (3.5-5.0); Alkaline Phosphatase 212 U/L (40-110); Anion Gap 18 mmol/L (10-20); BUN (Urea Nitrogen) 11 mg/dL (8.9-20.6); Bilirubin, Total 7.1 mg/dL (0.2-1.2); Calc. Creatinine Clearance 0 mL/min (70-130); Carbon Dioxide 19 mmol/L (22-29); Chloride 94 mmol/L (98-107); Estimated GFR-MDRD Greater than 90; Globulin 3.4 g/dL (2.4-3.5); Glucose 491 mg/dL (70-105); Potassium 3.5 mmol/L (3.5-5.1); Protein, Total 6.1 g/dL (6.0-8.3); Sodium 127 mmol/L (136-145)
[2020-04-24 03:24] LABS: Band 47 % (5-11); Lymphocytes 3 % (21-51); MDiff Complete? YES; Monocytes 4 % (0-10); Neutrophil 46 % (42-75); Platelet Morphology Comment Appears Decreased
[2020-04-24] MEDS: Sodium Chloride 0.9% 1,000 ML IV SCH ×3 (03:32→22:59)
[2020-04-24 03:36] LABS: CK (CPK) 7718 U/L (30-200)
[2020-04-24] MEDS: HYDROcodone/Acetaminophen 5/325 mg Tablet PO PRN ×2 (04:53→14:56)
[2020-04-24] MEDS ORDERED: HYDROcodone/Acetaminophen 5/325 mg Tablet ONE ×4 (04:56→14:59)
[2020-04-24 06:09] LABS: Troponin I 0.216 ng/mL (< 0.028)
[2020-04-24 06:13] LABS: Vitamin B12 Greater than 2000 pg/mL (211-911)
--- NOTE | 2020-04-24 07:42 | RAD ---
EXAM: Single view of the chest HISTORY: Multiple falls COMPARISON: 05/16/2019 FINDINGS: Single view of the chest shows a normal sized cardiomediastinal silhouette. There is no joão dence of consolidation, mass, or pleural effusion. The bones are unremarkable. IMPRESSION: No evidence of acute cardiopulmonary disease
--- NOTE | 2020-04-24 07:54 | ULT ---
EXAM: Left lower extremity venous Doppler US HISTORY: left lower extremity edema and pain FINDINGS: Grayscale, color-flow, Doppler evaluation, spectral analysis of the left lower extremity venous struc tures is performed with 2-D imaging. The left common femoral, superficial femoral, popliteal, posterior tibial, proximal greater saphenous and profunda femoral veins are imaged. There is normal luminal compressibility, flow, and augmentation the visualized deep venous structures of the left lower extremity. IMPRESSION: No evidence of a deep vein thrombosis in the left lower extremity.
--- NOTE | 2020-04-24 08:03 | CT ---
PRELIMINARY REPORT/[facility]/EMERGENCY AFTER HOURS PROCEDURE EXAM: CT Maxillofacial Without Intravenous Contrast. CLINICAL HISTORY: 49-year-old male presenting for evaluation after multiple falls. Patient reports since Wednesday he has had recurrent episodes where he loses sensation in bilateral arms and lower extremities causing him to fall. He reports on Wednesday he fell face first on the kitchen floor hitting his face. His mother re ports that patient has been in bed all day, and not acting himself. Mother reports patient was so weak today he was unable to get out of bed TECHNIQUE: Axial computed tomography images of the face without intravenous contrast. Sagittal and coronal refor mations performed. CONTRAST: Without COMPARISON: None provided. FINDINGS: BONES: Deformity of the right anterior frontal bone which may represent a small fracture, age indeterminate. Correlation with focal tenderness is recommended. SOFT TISSUES: The paranasal soft tissues are unremarkable. SINUSES: Mild mucosal thickening of the right maxillary sinus. ORBITS: The orbits are normal. No retrobulbar hematoma or mass. IMPRESSION: Deformity of the right anterior frontal bone which may represent a small fracture, age indeterminate. Correlation with focal tenderness is recommended. Otherwise, no acute facial bone fracture. ELECTRONICALLY SIGNED BY: Laurie Ray MD Apr 24, 2020 1:06:31 AM CDT This report is intended for review by the ordering physician only, in accordance of law. If you recei ve this report in error, please call [facility] at [phone]. FINAL REPORT Final report by Dr. Marrero Emergency after-hours study CT maxillofacial, noncontrast: 04/24/2020 12:49 AM HISTORY: 49-year-old male status post acute cervical facial trauma from fall. FINDINGS: No fracture is visible on this study. The paranasal sinuses demonstrate no air-fluid levels or high-g rade partial opacification. Multiple tiny mucus retention cysts in the right maxillary sinus. Bilateral tympanomastoid cavities are grossly clear. No focal hematoma. Disagreement with preliminary report by [facility]. Code QD IMPRESSION: No fracture. Transcribed Date/Time: 04/24/2020 8:18 AM
--- NOTE | 2020-04-24 08:20 | CT ---
PRELIMINARY REPORT/[facility]/EMERGENCY AFTER HOURS PROCEDURE: EXAM: CT Cervical Spine Without Intravenous Contrast. CLINICAL HISTORY: 49-year-old male presenting for evaluation after multiple falls. Patient reports since Wednesday he has had recurrent episodes where he loses sensation in bilateral arms and lower extremities causing him t o fall. He reports on Wednesday he fell face first on the kitchen floor hitting his face. His mother rep orts that patient has been in bed all day, and not acting himself. Mother reports patient was so weak today he was unable to get out of bed TECHNIQUE: Axial computed tomography images of the cervical spine without intravenous contrast. Sagittal and cor onal reformations performed. COMPARISON: None provided. FINDINGS: BONES: Status post ACDF at C5/C6. No acute fracture. DISCS / DEGENERATIVE CHANGES: Degenerative changes at C4/5 with intervertebral disc space narrowing, facet and uncinate hypertrophy and a small disc osteophyte complex causing mild canal stenosis. SOFT TISSUES: No prevertebral soft tissue swelling. No apical pneumothorax. IMPRESSION: No acute cervical spine abnormality. ELECTRONICALLY SIGNED BY: Laurie Ray MD Apr 24, 2020 1:08:17 AM CDT This report is intended for review by the ordering physician only, in accordance of law. If you recei ve this report in error, please call [facility] at [phone]. FINAL REPORT EMERGENCY AFTER HOURS CT CERVICAL SPINE WITHOUT CONTRAST: FINDINGS/IMPRESSION: I agree with the findings and impression given in the preliminary report per [facility] physici an. There are postsurgical and degenerative changes of the cervical spine without acute osseous abnormali ty. POS: SIMONE
--- NOTE | 2020-04-24 08:22 | CT ---
PRELIMINARY REPORT/[facility]/EMERGENCY AFTER HOURS PROCEDURE: EXAM: CT Head Without Intravenous Contrast. CLINICAL HISTORY: 49-year-old male presenting for evaluation after multiple falls. Patient reports since Wednesday he has had recurrent episodes where he loses sensation in bilateral arms and lower extremities causing him t o fall. He reports on Wednesday he fell face first on the kitchen floor hitting his face. His mother rep orts that patient has been in bed all day, and not acting himself. Mother reports patient was so weak today he was unable to get out of bed TECHNIQUE: Axial computed tomography images of the head/brain without intravenous contrast. COMPARISON: CT\SR - CT BRAIN WO CON - 04/05/2017 04:11 AM CDT FINDINGS: BRAIN: No acute intraparenchymal hemorrhage. No mass lesion. No CT evidence for acute territorial infarct. N o midline shift or extra-axial collection. VENTRICLES: No hydrocephalus. ORBITS: The orbits are unremarkable. SINUSES AND MASTOIDS: The paranasal sinuses and mastoid air cells are clear. SOFT TISSUES: No significant facial or scalp soft tissue swelling evident. No radiopaque foreign body is seen. BONES: No acute skull fracture. IMPRESSION: No acute intracranial abnormality. ELECTRONICALLY SIGNED BY: Laurie Ray MD Apr 24, 2020 1:02:56 AM CDT This report is intended for review by the ordering physician only, in accordance of law. If you recei ve this report in error, please call [facility] at [phone]. FINAL REPORT EMERGENCY AFTER HOURS CT BRAIN WITHOUT CONTRAST: FINDINGS/IMPRESSION: I agree with the findings and impression given in the preliminary report per [facility] physici an. No evidence of acute intracranial abnormality. POS: SIMONE
[2020-04-24] MEDS ORDERED: Thiamine 100 MG TAB ONE (10:04)
[2020-04-24] MEDS ORDERED: Folic Acid 1 MG TAB ONE (10:04)
[2020-04-24] MEDS ORDERED: Ketorolac Tromethamine 30 MG/ML VIAL ONE (15:25)
[2020-04-24] MEDS: Folic Acid 1 MG TAB PO SCH (15:26)
[2020-04-24] MEDS ORDERED: Dexamethasone 4 MG TAB ONE (15:27)
[2020-04-24] MEDS: Thiamine 100 MG TAB PO SCH (15:27)
[2020-04-24] MEDS: HumaLOG 300 UNITS/3 ML VIAL SC PRN (17:55)
[2020-04-24] MEDS: HYDROcodone/Acetaminophen 10/325 mg Tablet PO PRN (20:25)
[2020-04-24] MEDS: Insulin Glargine 10 UNITS in Pre-Filled Syringe 1 EACH SC SCH (22:59)
[2020-04-25] MEDS: HYDROcodone/Acetaminophen 10/325 mg Tablet PO PRN ×2 (04:25→21:17)
[2020-04-25 04:51] LABS: Anion Gap 10 mmol/L (10-20); BUN (Urea Nitrogen) 13 mg/dL (8.9-20.6); CK (CPK) 1983 U/L (30-200); Calc. Creatinine Clearance 199 mL/min (70-130); Calcium 7.7 mg/dL (7.8-10.44); Carbon Dioxide 23 mmol/L (22-29); Chloride 96 mmol/L (98-107); Estimated GFR-MDRD Greater than 90; Glucose 170 mg/dL (70-105); Potassium 3.3 mmol/L (3.5-5.1); Sodium 126 mmol/L (136-145)
[2020-04-25 05:08] LABS: Band 32 % (5-11); Hemoglobin 8.5 g/dL (14.0-18.0); Hypochromia SLIGHT = 6-15 cells (100X) (0-5/hpf); Lymphocytes 9 % (21-51); MDiff Complete? YES; Mean Corpuscular HGB CONC 28.6 g/dL (32.0-36.0); Mean Corpuscular Volume 80.4 fL (78.0-98.0); Mean Platelet Volume 15.5 fL (7.4-10.4); Metamyelocyte 1 % (0-0); Monocytes 3 % (0-10); Neutrophil 55 % (42-75); Platelet Count 31 thou/uL (130-400); Platelet Morphology Comment Appears Decreased; RBC Distribution Width 20.1 % (11.5-14.5); Red Blood Cell (RBC) Count 3.69 mill/uL (4.70-6.10); White Blood Cell (WBC) Count 4.1 thou/uL (4.8-10.8)
[2020-04-25] MEDS: HumaLOG 300 UNITS/3 ML VIAL SC PRN (06:21)
--- NOTE | 2020-04-25 08:01 | PDOC.HOSPP ---
- Subjective Encounter Date: 04/25/20 Encounter Time: 10:30 Subjective: Patient with some improvement in headache. Very weak and unsteady. No nausea/ vomiting. Not much appetite. - Objective Vital Signs & Weight: Vital Signs (12 hours) Temp Pulse Resp BP BP Pulse Ox 04/25/20 07:10 99.3 F 95 19 90/51 L 92 L 04/25/20 04:00 98.3 F 105 H 18 115/76 96 04/24/20 22:47 98.9 F 101 H 18 115/56 L 93 L 04/24/20 20:25 98.9 F 102 H 25 H 135/68 94 L Weight Weight 224 lb 11.2 oz I&O: 04/24/20 04/25/20 04/26/20 06:59 06:59 06:59 Intake Total 2303 Output Total 500 Balance 1803 Result Diagrams: 04/25/20 03:56 04/25/20 03:56 Additional Labs: Accuchecks 04/25/20 04/24/20 04/24/20 05:36 19:56 16:38 POC Glucose 181 H 181 H 264 H Hospitalist ROS - Review of Systems Constitutional: denies: fever, chills Respiratory: denies: cough, shortness of breath Cardiovascular: denies: chest pain, palpitations Gastrointestinal: denies: nausea, vomiting Neurological: reports: weakness - Medication Medications: Active Medications Generic Name Dose Route Start Last Admin Trade Name Freq PRN Reason Stop Dose Admin Hydrocodone Bitart/Acetaminophen 2 tab 04/24/20 19:13 04/25/20 04:25 [place] 10/325 PO 2 tab Q4H PRN Administration Severe Pain (7-10) Folic Acid 1 mg 04/24/20 09:00 04/24/20 15:26 Folvite PO Not Given DAILY HARPREET Insulin Glargine 10 units/ 0.1 mls @ 0 mls/hr 04/24/20 21:00 04/24/20 22:59 Miscellaneous Medication SC 0.1 mls HS HARPREET Administration Sodium Chloride 1,000 mls @ 100 mls/hr 04/24/20 02:00 04/24/20 22:59 Normal Saline 0.9% IV 1,000 mls .Q10H HARPREET Administration Insulin Human Lispro 0 units 04/24/20 01:54 04/25/20 06:21 Humalog SC 2 unit .MODERATE SLIDING SC PRN Administration Moderate Correctional Scale Thiamine HCl 100 mg 04/24/20 09:00 04/24/20 15:27 Thiamine PO Not Given DAILY HARPREET - Exam General Appearance: NAD, awake alert Eye - other findings: Bilateral black eyes, TTP right frontal bone Heart: RRR, no murmur, no gallops, no rubs Respiratory: CTAB, no wheezes, no rales, no ronchi Gastrointestinal: soft, non-tender, normal bowel sounds Gastrointestinal - other findings: mild distension Psychiatric: normal affect, normal behavior, A&O x 3 Hosp A/P (1) Nondisplaced right frontal skull fracture Code(s): S02.0XXA - FRACTURE OF VAULT OF SKULL, INIT ENCNTR FOR CLOSED FRACTURE Status: Acute (2) Rhabdomyolysis Code(s): M62.82 - RHABDOMYOLYSIS Status: Acute Qualifiers: Rhabdomyolysis type: traumatic (3) Alcohol abuse Code(s): F10.10 - ALCOHOL ABUSE, UNCOMPLICATED Status: Acute (4) Cirrhosis, alcoholic Code(s): K70.30 - ALCOHOLIC CIRRHOSIS OF LIVER WITHOUT ASCITES Status: Acute (5) DM type 2 (diabetes mellitus, type 2) Status: Chronic (6) Hypertension Code(s): I10 - ESSENTIAL (PRIMARY) HYPERTENSION Status: Chronic (7) Concussion Code(s): S06.0X9A - CONCUSSION W LOSS OF CONSCIOUSNESS OF UNSP DURATION, INIT Status: Acute (8) Moderate protein malnutrition Code(s): E44.0 - MODERATE PROTEIN-CALORIE MALNUTRITION Status: Chronic - Plan Patient with generalized weakness and malnutrition, likely due to alcohol use and poor po intake. Mostly stays in bed per family. Multiple falls with closed head injury, non-displaced right frontal fracture, and likely concussion. Patient's CPK improved markedly and no renal failure from that. Can back off on fluids, start Lasix. His sodium is dropping some with the IV fluids. PT/OT eval and likely needs placement though will be difficulty without funding.
[2020-04-25] MEDS: Sodium Chloride 0.9% 1,000 ML IV SCH (08:14)
[2020-04-25] MEDS: Thiamine 100 MG TAB PO SCH (08:18)
[2020-04-25] MEDS: Escitalopram Oxalate 20 mg Tablet PO SCH (08:18)
[2020-04-25] MEDS: Folic Acid 1 MG TAB PO SCH (08:18)
[2020-04-25] MEDS: Spironolactone 25 MG TAB PO SCH ×2 (08:18→16:49)
[2020-04-25] MEDS ORDERED: Non-Formulary Item 1 EACH (Spironolactone [Spironolactone] 50 MG) PO SCH (09:00)
[2020-04-25] MEDS: metFORMIN 500 MG TAB PO SCH (17:43)
[2020-04-25] MEDS: Insulin Glargine 10 UNITS in Pre-Filled Syringe 1 EACH SC SCH (21:18)
[2020-04-26] MEDS: HYDROcodone/Acetaminophen 10/325 mg Tablet PO PRN ×2 (05:15→11:04)
[2020-04-26] MEDS: Spironolactone 25 MG TAB PO SCH ×2 (08:09→18:26)
[2020-04-26] MEDS: Thiamine 100 MG TAB PO SCH (08:09)
[2020-04-26] MEDS: Folic Acid 1 MG TAB PO SCH (08:09)
[2020-04-26] MEDS: metFORMIN 500 MG TAB PO SCH ×2 (08:09→18:26)
[2020-04-26] MEDS: Escitalopram Oxalate 20 mg Tablet PO SCH (08:09)
--- NOTE | 2020-04-26 08:12 | PDOC.HOSPP ---
- Subjective Encounter Date: 04/26/20 Encounter Time: 10:30 Subjective: Patient with headaches improving. Still very weak on feet. PT working with him. - Objective Vital Signs & Weight: Vital Signs (12 hours) Temp Pulse Resp BP BP Pulse Ox 04/26/20 07:08 99.6 F 102 H 20 107/55 L 99 04/26/20 03:17 98.2 F 95 16 123/68 92 L 04/25/20 23:24 98 Weight Admit Weight 217 lb 2.485 oz Weight 222 lb 14.4 oz I&O: 04/25/20 04/26/20 04/27/20 06:59 06:59 06:59 Intake Total 2303 1660 Output Total 500 1900 Balance 1803 -240 Result Diagrams: 04/25/20 03:56 04/25/20 03:56 Additional Labs: Accuchecks 04/26/20 04/25/20 04/25/20 05:32 20:25 17:03 POC Glucose 121 H 153 H 145 H 04/25/20 10:55 POC Glucose 133 H Hospitalist ROS - Review of Systems Constitutional: denies: fever, chills Respiratory: denies: cough, shortness of breath Cardiovascular: denies: chest pain, palpitations Gastrointestinal: reports: constipation. denies: nausea, vomiting, abdominal pain, diarrhea - Medication Medications: Active Medications Generic Name Dose Route Start Last Admin Trade Name Freq PRN Reason Stop Dose Admin Hydrocodone Bitart/Acetaminophen 2 tab 04/24/20 19:13 04/26/20 05:15 [place] 10/325 PO 2 tab Q4H PRN Administration Severe Pain (7-10) Escitalopram Oxalate 20 mg 04/25/20 09:00 04/25/20 08:18 Lexapro PO 20 mg DAILY HARPREET Administration Folic Acid 1 mg 04/24/20 09:00 04/25/20 08:18 Folvite PO 1 mg DAILY HARPREET Administration Insulin Glargine 10 units/ 0.1 mls @ 0 mls/hr 04/24/20 21:00 04/25/20 21:18 Miscellaneous Medication SC 0.1 mls HS HARPREET Administration Insulin Human Lispro 0 units 04/24/20 01:54 04/25/20 06:21 Humalog SC 2 unit .MODERATE SLIDING SC PRN Administration Moderate Correctional Scale Metformin HCl 1,000 mg 04/25/20 17:00 04/25/20 17:43 Glucophage PO 1,000 mg BID-WM HARPREET Administration Sodium Chloride 10 ml 04/24/20 02:11 04/25/20 21:20 Flush - Normal Saline IVF 10 ml PRN PRN Administration Saline Flush Spironolactone 50 mg 04/25/20 08:00 04/25/20 16:49 Aldactone PO Not Given BID-WM HARPREET Thiamine HCl 100 mg 04/24/20 09:00 04/25/20 08:18 Thiamine PO 100 mg DAILY HARPREET Administration - Exam General Appearance: NAD, awake alert Eye - other findings: bilateral black eyes ENT: moist mucosa Heart: RRR, no murmur, no gallops, no rubs Respiratory: CTAB, no wheezes, no rales, no ronchi Gastrointestinal: soft, non-tender, normal bowel sounds Gastrointestinal - other findings: mild distension Psychiatric: normal affect, normal behavior, A&O x 3 Hosp A/P (1) Nondisplaced right frontal skull fracture Code(s): S02.0XXA - FRACTURE OF VAULT OF SKULL, INIT ENCNTR FOR CLOSED FRACTURE Status: Acute (2) Rhabdomyolysis Code(s): M62.82 - RHABDOMYOLYSIS Status: Acute Qualifiers: Rhabdomyolysis type: traumatic (3) Alcohol abuse Code(s): F10.10 - ALCOHOL ABUSE, UNCOMPLICATED Status: Acute (4) Cirrhosis, alcoholic Code(s): K70.30 - ALCOHOLIC CIRRHOSIS OF LIVER WITHOUT ASCITES Status: Acute (5) DM type 2 (diabetes mellitus, type 2) Status: Chronic (6) Hypertension Code(s): I10 - ESSENTIAL (PRIMARY) HYPERTENSION Status: Chronic (7) Concussion Code(s): S06.0X9A - CONCUSSION W LOSS OF CONSCIOUSNESS OF UNSP DURATION, INIT Status: Acute (8) Moderate protein malnutrition Code(s): E44.0 - MODERATE PROTEIN-CALORIE MALNUTRITION Status: Chronic - Plan Patient with generalized weakness and malnutrition, likely due to alcohol use and poor po intake. Mostly stays in bed per family. Multiple falls with closed head injury, non-displaced right frontal fracture, and likely concussion. Patient's CPK improved markedly and no renal failure from that. Can back off on fluids, start Lasix. Will recheck sodium in the morning. PT/OT eval and likely needs placement though will be difficulty without funding.
[2020-04-26] MEDS ORDERED: Potassium Chloride 20 MEQ TAB PO SCH (11:00)
[2020-04-26] MEDS: Insulin Glargine 10 UNITS in Pre-Filled Syringe 1 EACH SC SCH (22:21)
[2020-04-27 04:35] LABS: Anion Gap 11 mmol/L (10-20); BUN (Urea Nitrogen) 13 mg/dL (8.9-20.6); Calc. Creatinine Clearance 211 mL/min (70-130); Calcium 8.2 mg/dL (7.8-10.44); Carbon Dioxide 23 mmol/L (22-29); Chloride 96 mmol/L (98-107); Estimated GFR-MDRD Greater than 90; Glucose 153 mg/dL (70-105); Potassium 3.5 mmol/L (3.5-5.1); Sodium 126 mmol/L (136-145)
[2020-04-27 05:08] LABS: Platelet Count 23 thou/uL (130-400)
[2020-04-27 05:18] LABS: Anisocytosis SLIGHT = 6-15 cells (100X) (0-5/hpf); Band 39 % (5-11); Elliptocytes SLIGHT = 2-5 cells (100X) (0-1/hpf); Eosinophils 1 % (0-10); Hemoglobin 8.8 g/dL (14.0-18.0); Hypochromia SLIGHT = 6-15 cells (100X) (0-5/hpf); Large Platelets SLIGHT; Lymphocytes 14 % (21-51); MDiff Complete? YES; Mean Corpuscular Hemoglobin 23.4 pg (27.0-31.0); Mean Corpuscular Volume 80.9 fL (78.0-98.0); Mean Platelet Volume 13.4 fL (7.4-10.4); Monocytes 14 % (0-10); Neutrophil 32 % (42-75); Platelet Morphology Comment Appears Decreased; Poikilocytosis SLIGHT = 6-15 cells (100X) (0-5/hpf); Polychromasia SLIGHT = 2-3 cells (100X) (0-2/hpf); RBC Distribution Width 21.2 % (11.5-14.5); Red Blood Cell (RBC) Count 3.73 mill/uL (4.70-6.10); Target Cells SLIGHT = 2-5 cells (100X) (0-1/hpf); White Blood Cell (WBC) Count 3.6 thou/uL (4.8-10.8)
--- NOTE | 2020-04-27 08:32 | PDOC.HOSPP ---
- Subjective Encounter Date: 04/27/20 Encounter Time: 11:00 Subjective: Patient confused this morning. Had a fever yesterday. Denying pain. - Objective Vital Signs & Weight: Vital Signs (12 hours) Temp Pulse Resp BP Pulse Ox 04/27/20 04:00 98.2 F 94 22 H 106/64 94 L 04/26/20 23:15 99.4 F 108 H 18 130/59 L 90 L Weight Admit Weight 217 lb 2.485 oz Weight 221 lb I&O: 04/26/20 04/27/20 04/28/20 06:59 06:59 06:59 Intake Total 1660 1200 Output Total 1900 1800 Balance -240 -600 Result Diagrams: 04/27/20 03:56 04/27/20 03:56 Additional Labs: Accuchecks 04/27/20 04/26/20 04/26/20 05:48 21:18 16:29 POC Glucose 155 H 134 H 173 H 04/26/20 10:52 POC Glucose 192 H Hospitalist ROS - Review of Systems ROS unobtainable: due to mental status - Medication Medications: Active Medications Generic Name Dose Route Start Last Admin Trade Name Freq PRN Reason Stop Dose Admin Hydrocodone Bitart/Acetaminophen 2 tab 04/24/20 19:13 04/26/20 11:04 [place] 10/325 PO 2 tab Q4H PRN Administration Severe Pain (7-10) Escitalopram Oxalate 20 mg 04/25/20 09:00 04/26/20 08:09 Lexapro PO 20 mg DAILY HARPREET Administration Folic Acid 1 mg 04/24/20 09:00 04/26/20 08:09 Folvite PO 1 mg DAILY HARPREET Administration Insulin Glargine 10 units/ 0.1 mls @ 0 mls/hr 04/24/20 21:00 04/26/20 22:21 Miscellaneous Medication SC Not Given HS HARPREET Insulin Human Lispro 0 units 04/24/20 01:54 04/25/20 06:21 Humalog SC 2 unit .MODERATE SLIDING SC PRN Administration Moderate Correctional Scale Lorazepam 2 mg 04/24/20 01:54 04/26/20 17:36 Ativan SLOW IVP 2 mg Q6H PRN Administration Anxiety/Agitation Metformin HCl 1,000 mg 04/25/20 17:00 04/26/20 18:26 Glucophage PO Not Given BID-WM HARPREET Sodium Chloride 10 ml 04/24/20 02:11 04/25/20 21:20 Flush - Normal Saline IVF 10 ml PRN PRN Administration Saline Flush Spironolactone 50 mg 04/25/20 08:00 04/26/20 18:26 Aldactone PO Not Given BID-WM HARPREET Thiamine HCl 100 mg 04/24/20 09:00 04/26/20 08:09 Thiamine PO 100 mg DAILY HARPREET Administration - Exam General Appearance: NAD General - other findings: lethargic, arousable, confused Eye: PERRL ENT - other findings: bilateral black eyes unchanged Heart: RRR, no murmur, no gallops, no rubs Respiratory: CTAB, no wheezes, no rales, no ronchi Gastrointestinal: soft, non-tender, non-distended, normal bowel sounds Psychiatric: not oriented, lethargic Hosp A/P (1) Nondisplaced right frontal skull fracture Code(s): S02.0XXA - FRACTURE OF VAULT OF SKULL, INIT ENCNTR FOR CLOSED FRACTURE Status: Acute (2) Rhabdomyolysis Code(s): M62.82 - RHABDOMYOLYSIS Status: Acute Qualifiers: Rhabdomyolysis type: traumatic (3) Alcohol abuse Code(s): F10.10 - ALCOHOL ABUSE, UNCOMPLICATED Status: Acute (4) Cirrhosis, alcoholic Code(s): K70.30 - ALCOHOLIC CIRRHOSIS OF LIVER WITHOUT ASCITES Status: Acute (5) DM type 2 (diabetes mellitus, type 2) Status: Chronic (6) Hypertension Code(s): I10 - ESSENTIAL (PRIMARY) HYPERTENSION Status: Chronic (7) Concussion Code(s): S06.0X9A - CONCUSSION W LOSS OF CONSCIOUSNESS OF UNSP DURATION, INIT Status: Acute (8) Moderate protein malnutrition Code(s): E44.0 - MODERATE PROTEIN-CALORIE MALNUTRITION Status: Chronic (9) Fever Code(s): R50.9 - FEVER, UNSPECIFIED Status: Acute (10) Acute respiratory failure with hypoxia Code(s): J96.01 - ACUTE RESPIRATORY FAILURE WITH HYPOXIA Status: Acute (11) Acute metabolic encephalopathy Code(s): G93.41 - METABOLIC ENCEPHALOPATHY Status: Acute - Plan Patient with generalized weakness and malnutrition, likely due to alcohol use and poor po intake. Mostly stays in bed per family. Multiple falls with closed head injury, non-displaced right frontal fracture, and likely concussion. Patient with hypoxia since fluid resuscitation. IV fluids d/c'd and spironolactone resumed, starting to diurese. Still with moderately low sodium though stable. Fever to 101 last night though I wasn't informed. Lymphopenia and low O2 sats. Also with some confusion last night and needed ativan. Will check Covid, CXR, blood culture, urinalysis. Move to isolation if rapid Covid positive. Repeat CT head. No abdominal distension but hx of portal HTN, risk for SBP. Get paracentesis if able and culture. Just reviewed CXR and new RLL infiltrate possible, start Rocephin and Azithromycin. PT/OT eval and likely needs placement though will be difficulty without funding.
--- NOTE | 2020-04-27 08:57 | RAD ---
EXAM: Single view of the chest HISTORY: Hypoxia and fever COMPARISON: None FINDINGS: Single view of the chest shows a normal sized cardiomediastinal silhouette. There appears b e a subtle infiltrate in the right lung base. No pleural effusion is seen. The bones are unremarkable IMPRESSION: Right lower lobe infiltrate
[2020-04-27] MEDS: Spironolactone 25 MG TAB PO SCH ×2 (09:39→17:56)
[2020-04-27] MEDS: Escitalopram Oxalate 20 mg Tablet PO SCH (09:39)
[2020-04-27] MEDS: metFORMIN 500 MG TAB PO SCH ×2 (09:39→17:56)
[2020-04-27] MEDS: Thiamine 100 MG TAB PO SCH (09:39)
[2020-04-27] MEDS: Folic Acid 1 MG TAB PO SCH (09:39)
[2020-04-27 10:18] LABS: SARS-CoV-2 NAA Rapid Test Not Detected (NotDetected)
[2020-04-27] MEDS: HYDROcodone/Acetaminophen 10/325 mg Tablet PO PRN ×2 (11:38→20:48)
[2020-04-27 11:59] LABS: Bacteria/HPF None Seen HPF (None Seen); Bilirubin 2+ (Negative); Blood, Urine 2+ (Negative); Clarity Clear (Clear); Glucose, Urine (Dipstick) 30 mg/dL (Negative); Ketone, Urine 20 mg/dL (Negative); Leukocyte Negative Leu/uL (Negative); Nitrite Negative (Negative); Protein, Urine (Dipstick) 10 mg/dL (Neg-Trace); Specific Gravity, Urine 1.022 (1.002-1.036); Squamous Epithelial 0-3 HPF (0-3); Urobilinogen 12 mg/dL (Less than 2); WBC/HPF 0-3 HPF (0-3)
--- NOTE | 2020-04-27 12:26 | CT ---
EXAM: CT brain without contrast HISTORY: Fall with altered mental status/confusion COMPARISON: 04/24/2020 TECHNIQUE: Multiple contiguous axial images were obtained and a CT of the brain without contrast. FINDINGS: The brain is normal in morphology and attenuation without focal lesions or confluent areas of infarction. There is no evidence of hydrocephalus, intracranial hemorrhage, or extra-axial fluid collection. The calvarium and overlying soft tissues are unremarkable. The visualized paranasal sinuses and masto id air cells are well aerated. IMPRESSION: No evidence of acute intracranial abnormality
[2020-04-27 12:50] LABS: INR-International Normal Ratio 2.7; Prothrombin Time 28.2 sec (12.0-14.7)
--- NOTE | 2020-04-27 13:15 | ULT ---
US Abdomen Limited: 04/27/2020 12:00 PM CLINICAL HISTORY: Abdominal distention with possible ascites. STUDY: Limited right upper quadrant ultrasound of abdomen. COMPARISON: None. FINDINGS: No significant fluid is seen in any of the 4 quadrants of the abdomen. IMPRESSION: No significant ascites.
[2020-04-27] MEDS: Azithromycin 500 MG in Sodium Chloride 0.9% 250 ML 250 ML IVPB SCH (14:21)
[2020-04-27] MEDS: cefTRIAXone\\ROCEPHIN 2 GM in Sodium Chloride 0.9% 100 ML IVPB SCH (14:21)
[2020-04-27 16:55] LABS: SARS-CoV-2 IgG Ab Non-Reactive (NonReactive); SARS-CoV-2 IgG Index 0.05 S/CO (< 1.40)
[2020-04-27] MEDS: Insulin Glargine 10 UNITS in Pre-Filled Syringe 1 EACH SC SCH (22:46)
[2020-04-27] MEDS ORDERED: Ziprasidone 20 MG VIAL IM PRN (23:30)
[2020-04-28 04:31] LABS: Anion Gap 14 mmol/L (10-20); BUN (Urea Nitrogen) 12 mg/dL (8.9-20.6); Calc. Creatinine Clearance 216 mL/min (70-130); Calcium 8.6 mg/dL (7.8-10.44); Carbon Dioxide 23 mmol/L (22-29); Chloride 100 mmol/L (98-107); Estimated GFR-MDRD Greater than 90; Glucose 137 mg/dL (70-105); Sodium 134 mmol/L (136-145)
[2020-04-28 04:34] LABS: Potassium 2.8 mmol/L (3.5-5.1)
[2020-04-28 04:57] LABS: Band 20 % (5-11); Eosinophils 1 % (0-10); Hemoglobin 9.5 g/dL (14.0-18.0); Lymphocytes 8 % (21-51); MDiff Complete? YES; Mean Corpuscular Hemoglobin 24.1 pg (27.0-31.0); Mean Corpuscular Volume 80.3 fL (78.0-98.0); Mean Platelet Volume 18.8 fL (7.4-10.4); Monocytes 21 % (0-10); Neutrophil 50 % (42-75); Platelet Count 24 thou/uL (130-400); Platelet Morphology Comment Appears Decreased; RBC Distribution Width 20.9 % (11.5-14.5); Red Blood Cell (RBC) Count 3.94 mill/uL (4.70-6.10); White Blood Cell (WBC) Count 6.2 thou/uL (4.8-10.8)
[2020-04-28] MEDS ORDERED: Potassium Chloride 20 MEQ TAB PO SCH (05:00)
[2020-04-28] MEDS: Lorazepam 2 MG/ML VIAL SLOW IVP PRN ×2 (05:07→20:50)
--- NOTE | 2020-04-28 08:23 | PDOC.HOSPP ---
- Subjective Encounter Date: 04/28/20 Encounter Time: : Subjective: oriented to person only - Objective Vital Signs & Weight: Vital Signs (12 hours) Temp Pulse Resp BP Pulse Ox 04/28/20 04:00 98.3 F 115 H 20 145/67 H 98 Weight Admit Weight 217 lb 2.485 oz Weight 216 lb 4.8 oz I&O: 04/27/20 04/28/20 04/29/20 06:59 06:59 06:59 Intake Total 1200 670 Output Total 1800 1250 Balance -600 -580 Result Diagrams: 04/28/20 04:01 04/28/20 04:01 Additional Labs: Accuchecks 04/28/20 04/27/20 04/27/20 05:47 20:03 16:24 POC Glucose 143 H 215 H 207 H 04/27/20 10:58 POC Glucose 159 H Hospitalist ROS - Medication Medications: Active Medications Generic Name Dose Route Start Last Admin Trade Name Freq PRN Reason Stop Dose Admin Hydrocodone Bitart/Acetaminophen 1 tab 04/24/20 19:13 04/27/20 11:38 [place] 10/325 PO 1 tab Q4H PRN Administration Moderate Pain (4-6) Hydrocodone Bitart/Acetaminophen 2 tab 04/24/20 19:13 04/27/20 20:48 [place] 10/325 PO 2 tab Q4H PRN Administration Severe Pain (7-10) Escitalopram Oxalate 20 mg 04/25/20 09:00 04/27/20 09:39 Lexapro PO Not Given DAILY HARPREET Folic Acid 1 mg 04/24/20 09:00 04/27/20 09:39 Folvite PO Not Given DAILY HARPREET Insulin Glargine 10 units/ 0.1 mls @ 0 mls/hr 04/24/20 21:00 04/27/20 22:46 Miscellaneous Medication SC Not Given HS HARPREET Azithromycin 500 mg/ Sodium 250 mls @ 250 mls/hr 04/27/20 14:00 04/27/20 14: 21 Chloride IVPB 250 mls 1400 HARPREET Administration Ceftriaxone Sodium 2 gm/ 100 mls @ 200 mls/hr 04/27/20 13:00 04/27/20 14:21 Sodium Chloride IVPB 100 mls 1300 HARPREET Administration Insulin Human Lispro 0 units 04/24/20 01:54 04/25/20 06:21 Humalog SC 2 unit .MODERATE SLIDING SC PRN Administration Moderate Correctional Scale Lactulose 20 gm 04/27/20 21:00 04/27/20 20:59 Lactulose PO 20 gm BID HARPREET Administration Lorazepam 1 mg 04/28/20 04:43 04/28/20 05:07 Ativan SLOW IVP 1 mg Q6H PRN Administration AGITATION/ANXIETY Metformin HCl 1,000 mg 04/25/20 17:00 04/27/20 17:56 Glucophage PO Not Given BID-WM HARPREET Sodium Chloride 10 ml 04/24/20 02:11 04/25/20 21:20 Flush - Normal Saline IVF 10 ml PRN PRN Administration Saline Flush Spironolactone 50 mg 04/25/20 08:00 04/27/20 17:56 Aldactone PO Not Given BID-WM HARPREET Thiamine HCl 100 mg 04/24/20 09:00 04/27/20 09:39 Thiamine PO Not Given DAILY HARPREET Ziprasidone 10 mg 04/27/20 23:30 04/27/20 23:52 Geodon IM 04/28/20 23:31 10 mg ONE PRN Administration Agitation - Exam Neck: no JVD Heart: no murmur Heart - other findings: S1S2 normal Respiratory: CTAB Gastrointestinal: soft, non-distended, normal bowel sounds Extremities: no edema Hosp A/P (1) Bacteremia due to Gram-positive bacteria Code(s): R78.81 - BACTEREMIA Status: Acute (2) Acute metabolic encephalopathy Code(s): G93.41 - METABOLIC ENCEPHALOPATHY Status: Acute (3) Acute respiratory failure with hypoxia Code(s): J96.01 - ACUTE RESPIRATORY FAILURE WITH HYPOXIA Status: Acute (4) Concussion Code(s): S06.0X9A - CONCUSSION W LOSS OF CONSCIOUSNESS OF UNSP DURATION, INIT Status: Acute (5) Alcohol abuse Code(s): F10.10 - ALCOHOL ABUSE, UNCOMPLICATED Status: Acute (6) Cirrhosis, alcoholic Code(s): K70.30 - ALCOHOLIC CIRRHOSIS OF LIVER WITHOUT ASCITES Status: Acute Qualifiers: Ascites presence: without ascites Qualified Code(s): K70.30 - Alcoholic cirrhosis of liver without ascites (7) Hypokalemia Code(s): E87.6 - HYPOKALEMIA Status: Acute (8) Hypomagnesemia Code(s): E83.42 - HYPOMAGNESEMIA Status: Acute (9) Hyponatremia Code(s): E87.1 - HYPO-OSMOLALITY AND HYPONATREMIA Status: Acute (10) DM type 2 (diabetes mellitus, type 2) Status: Chronic Qualifiers: Diabetes mellitus snf insulin use: without rn long term care use Diabetes mellitus complication status: without complication Qualified Code(s): E11.9 - Type 2 diabetes mellitus without complications (11) Hypertension Code(s): I10 - ESSENTIAL (PRIMARY) HYPERTENSION Status: Chronic Qualifiers: Hypertension type: essential hypertension Qualified Code(s): I10 - Essential (primary) hypertension - Plan rpt ammonia, lactic acid possible wernickes encephalopathy DM adequately controlled severe coagulopathy with elevated INR/ thrombocytopenia cont antibx for bacteremia
[2020-04-28] MEDS: Spironolactone 25 MG TAB PO SCH ×3 (08:56→16:01)
[2020-04-28] MEDS: Potassium Chloride 20 MEQ TAB PO SCH ×2 (08:57→16:01)
[2020-04-28] MEDS: Escitalopram Oxalate 20 mg Tablet PO SCH (09:06)
[2020-04-28] MEDS: metFORMIN 500 MG TAB PO SCH ×2 (09:08→16:02)
[2020-04-28] MEDS: Folic Acid 1 MG TAB PO SCH (09:28)
[2020-04-28] MEDS: Thiamine 100 MG TAB PO SCH (09:28)
--- NOTE | 2020-04-28 14:37 | PDOC.EVN ---
Event Note - Event Note Event Note: ammonia, lactate Nl
[2020-04-28] MEDS: cefTRIAXone\\ROCEPHIN 2 GM in Sodium Chloride 0.9% 100 ML IVPB SCH (14:47)
[2020-04-28] MEDS: Azithromycin 500 MG in Sodium Chloride 0.9% 250 ML 250 ML IVPB SCH (16:01)
[2020-04-28] MEDS: Insulin Glargine 10 UNITS in Pre-Filled Syringe 1 EACH SC SCH (21:50)
--- NOTE | 2020-04-29 09:17 | PDOC.HOSPP ---
- Subjective Encounter Date: 04/29/20 Encounter Time: 09:14 Subjective: awake, no appropriate response - Objective Vital Signs & Weight: Vital Signs (12 hours) Temp Pulse Resp BP BP Pulse Ox 04/29/20 04:30 97.6 F 77 24 H 130/74 95 04/29/20 01:25 82 23 H 147/72 H 95 04/28/20 21:25 98.7 F 87 20 137/71 94 L Weight Admit Weight 217 lb 2.485 oz Weight 202 lb 9.6 oz I&O: 04/28/20 04/29/20 04/30/20 06:59 06:59 06:59 Intake Total 670 840 Output Total 1250 580 Balance -580 260 Result Diagrams: 04/28/20 04:01 04/28/20 04:01 Additional Labs: Accuchecks 04/29/20 04/28/20 04/28/20 07:02 20:26 17:14 POC Glucose 173 H 165 H 194 H 04/28/20 11:01 POC Glucose 189 H Hospitalist ROS - Medication Medications: Active Medications Generic Name Dose Route Start Last Admin Trade Name Freq PRN Reason Stop Dose Admin Hydrocodone Bitart/Acetaminophen 1 tab 04/24/20 19:13 04/27/20 11:38 [place] 10/325 PO 1 tab Q4H PRN Administration Moderate Pain (4-6) Hydrocodone Bitart/Acetaminophen 2 tab 04/24/20 19:13 04/27/20 20:48 [place] 10/325 PO 2 tab Q4H PRN Administration Severe Pain (7-10) Escitalopram Oxalate 20 mg 04/25/20 09:00 04/28/20 09:06 Lexapro PO 20 mg DAILY HARPREET Administration Folic Acid 1 mg 04/24/20 09:00 04/28/20 09:28 Folvite PO Not Given DAILY HARPREET Insulin Glargine 10 units/ 0.1 mls @ 0 mls/hr 04/24/20 21:00 04/28/20 21:50 Miscellaneous Medication SC Not Given HS HARPREET Azithromycin 500 mg/ Sodium 250 mls @ 250 mls/hr 04/27/20 14:00 04/28/20 16: 01 Chloride IVPB 250 mls 1400 HARPREET Administration Ceftriaxone Sodium 2 gm/ 100 mls @ 200 mls/hr 04/27/20 13:00 04/28/20 14:47 Sodium Chloride IVPB 100 mls 1300 HARRPEET Administration Insulin Human Lispro 0 units 04/24/20 01:54 04/25/20 06:21 Humalog SC 2 unit .MODERATE SLIDING SC PRN Administration Moderate Correctional Scale Lactulose 20 gm 04/27/20 21:00 04/28/20 21:17 Lactulose PO 20 gm BID HARPREET Administration Lorazepam 1 mg 04/28/20 04:43 04/28/20 20:50 Ativan SLOW IVP 1 mg Q6H PRN Administration AGITATION/ANXIETY Metformin HCl 1,000 mg 04/25/20 17:00 04/28/20 16:02 Glucophage PO Not Given BID-WM HARPREET Potassium Chloride 40 meq 04/28/20 08:00 04/28/20 16:01 K-Dur PO 40 meq BID-WM HARPREET Administration Sodium Chloride 10 ml 04/24/20 02:11 04/28/20 20:53 Flush - Normal Saline IVF 10 ml PRN PRN Administration Saline Flush Spironolactone 50 mg 04/25/20 08:00 04/28/20 16:01 Aldactone PO 50 mg BID-WM HARPREET Administration Thiamine HCl 100 mg 04/24/20 09:00 04/28/20 09:28 Thiamine PO Not Given DAILY HARPREET - Exam Neck: no JVD Heart: RRR, no murmur Respiratory: CTAB Gastrointestinal: soft, non-tender, normal bowel sounds Extremities: 1+ LE edema Hosp A/P (1) Bacteremia due to Gram-positive bacteria Code(s): R78.81 - BACTEREMIA Status: Acute (2) Acute metabolic encephalopathy Code(s): G93.41 - METABOLIC ENCEPHALOPATHY Status: Acute (3) Acute respiratory failure with hypoxia Code(s): J96.01 - ACUTE RESPIRATORY FAILURE WITH HYPOXIA Status: Acute (4) Concussion Code(s): S06.0X9A - CONCUSSION W LOSS OF CONSCIOUSNESS OF UNSP DURATION, INIT Status: Acute (5) Alcohol abuse Code(s): F10.10 - ALCOHOL ABUSE, UNCOMPLICATED Status: Acute (6) Cirrhosis, alcoholic Code(s): K70.30 - ALCOHOLIC CIRRHOSIS OF LIVER WITHOUT ASCITES Status: Acute Qualifiers: Ascites presence: without ascites Qualified Code(s): K70.30 - Alcoholic cirrhosis of liver without ascites (7) Hypokalemia Code(s): E87.6 - HYPOKALEMIA Status: Acute (8) Hypomagnesemia Code(s): E83.42 - HYPOMAGNESEMIA Status: Acute (9) Hyponatremia Code(s): E87.1 - HYPO-OSMOLALITY AND HYPONATREMIA Status: Acute (10) DM type 2 (diabetes mellitus, type 2) Status: Chronic Qualifiers: Diabetes mellitus alf insulin use: without alf use Diabetes mellitus complication status: without complication Qualified Code(s): E11.9 - Type 2 diabetes mellitus without complications (11) Hypertension Code(s): I10 - ESSENTIAL (PRIMARY) HYPERTENSION Status: Chronic Qualifiers: Hypertension type: essential hypertension Qualified Code(s): I10 - Essential (primary) hypertension - Plan suspect werickes encephalopathy bacteremia- source? CBP?- cont iv antib rpt cbc, bmp-then reevaluate
[2020-04-29] MEDS: Potassium Chloride 20 MEQ TAB PO SCH ×2 (09:40→17:20)
[2020-04-29] MEDS: Thiamine 100 MG TAB PO SCH (09:41)
[2020-04-29] MEDS: metFORMIN 500 MG TAB PO SCH ×2 (09:41→17:20)
[2020-04-29] MEDS: Folic Acid 1 MG TAB PO SCH (09:41)
[2020-04-29] MEDS: Spironolactone 25 MG TAB PO SCH ×2 (09:42→17:20)
[2020-04-29] MEDS: Escitalopram Oxalate 20 mg Tablet PO SCH (09:42)
[2020-04-29 09:52] LABS: Anion Gap 12 mmol/L (10-20); BUN (Urea Nitrogen) 9 mg/dL (8.9-20.6); Calc. Creatinine Clearance 217 mL/min (70-130); Calcium 8.6 mg/dL (7.8-10.44); Carbon Dioxide 23 mmol/L (22-29); Chloride 102 mmol/L (98-107); Estimated GFR-MDRD Greater than 90; Glucose 193 mg/dL (70-105); Potassium 3.2 mmol/L (3.5-5.1); Sodium 134 mmol/L (136-145)
[2020-04-29 10:05] LABS: Mean Corpuscular HGB CONC 29.4 g/dL (32.0-36.0); Mean Corpuscular Hemoglobin 23.6 pg (27.0-31.0); Mean Corpuscular Volume 80.4 fL (78.0-98.0); Red Blood Cell (RBC) Count 4.21 mill/uL (4.70-6.10); White Blood Cell (WBC) Count 6.5 thou/uL (4.8-10.8)
[2020-04-29 10:18] LABS: Band 10 % (5-11); Elliptocytes SLIGHT = 2-5 cells (100X) (0-1/hpf); Eosinophils 1 % (0-10); Hypochromia SLIGHT = 6-15 cells (100X) (0-5/hpf); Lymphocytes 13 % (21-51); MDiff Complete? YES; Mean Platelet Volume 6.8 fL (7.4-10.4); Monocytes 8 % (0-10); Neutrophil 68 % (42-75); Platelet Count 31 thou/uL (130-400); Platelet Morphology Comment Appears Decreased; Poikilocytosis SLIGHT = 6-15 cells (100X) (0-5/hpf); Polychromasia SLIGHT = 2-3 cells (100X) (0-2/hpf); Target Cells SLIGHT = 2-5 cells (100X) (0-1/hpf); Toxic Granulation SLIGHT
[2020-04-29] MEDS: HumaLOG 300 UNITS/3 ML VIAL SC PRN (10:38)
[2020-04-29] MEDS: cefTRIAXone\\ROCEPHIN 2 GM in Sodium Chloride 0.9% 100 ML IVPB SCH (12:48)
[2020-04-29] MEDS: Azithromycin 500 MG in Sodium Chloride 0.9% 250 ML 250 ML IVPB SCH (13:47)
[2020-04-29] MEDS: Lorazepam 2 MG/ML VIAL SLOW IVP PRN (13:52)
[2020-04-29] MEDS: HYDROcodone/Acetaminophen 10/325 mg Tablet PO PRN (21:19)
[2020-04-29] MEDS: Insulin Glargine 10 UNITS in Pre-Filled Syringe 1 EACH SC SCH (22:54)
--- NOTE | 2020-04-30 08:45 | PDOC.HOSPP ---
- Subjective Encounter Date: 04/30/20 Encounter Time: 08:40 Subjective: non-compes mentis - Objective Vital Signs & Weight: Vital Signs (12 hours) Temp Pulse Resp BP BP Pulse Ox 04/30/20 08:00 132/78 04/30/20 07:15 97.4 F L 71 18 132/78 96 04/30/20 03:37 97.4 F L 80 22 H 140/81 97 04/29/20 21:19 98.0 F 84 22 H 141/86 H 99 Weight Admit Weight 217 lb 2.485 oz Weight 196 lb 6 oz I&O: 04/29/20 04/30/20 05/01/20 06:59 06:59 06:59 Intake Total 840 610 Output Total 580 Balance 260 610 Result Diagrams: 04/29/20 09:13 04/29/20 09:13 Additional Labs: Accuchecks 04/30/20 04/29/20 04/29/20 05:48 21:08 16:53 POC Glucose 159 H 144 H 163 H 04/29/20 10:57 POC Glucose 188 H Hospitalist ROS - Medication Medications: Active Medications Generic Name Dose Route Start Last Admin Trade Name Freq PRN Reason Stop Dose Admin Hydrocodone Bitart/Acetaminophen 1 tab 04/24/20 19:13 04/29/20 21:19 [place] 10/325 PO 1 tab Q4H PRN Administration Moderate Pain (4-6) Hydrocodone Bitart/Acetaminophen 2 tab 04/24/20 19:13 04/27/20 20:48 [place] 10/325 PO 2 tab Q4H PRN Administration Severe Pain (7-10) Escitalopram Oxalate 20 mg 04/25/20 09:00 04/29/20 09:42 Lexapro PO 20 mg DAILY HARPREET Administration Folic Acid 1 mg 04/24/20 09:00 04/29/20 09:41 Folvite PO 1 mg DAILY HARPREET Administration Insulin Glargine 10 units/ 0.1 mls @ 0 mls/hr 04/24/20 21:00 04/29/20 22:54 Miscellaneous Medication SC Not Given HS HARPREET Ceftriaxone Sodium 2 gm/ 100 mls @ 200 mls/hr 04/27/20 13:00 04/29/20 12:48 Sodium Chloride IVPB 100 mls 1300 HARPREET Administration Insulin Human Lispro 0 units 04/24/20 01:54 04/29/20 10:38 Humalog SC 2 unit .MODERATE SLIDING SC PRN Administration Moderate Correctional Scale Lactulose 20 gm 04/27/20 21:00 04/29/20 21:21 Lactulose PO 20 gm BID HARPREET Administration Lorazepam 1 mg 04/28/20 04:43 04/29/20 13:52 Ativan SLOW IVP 1 mg Q6H PRN Administration AGITATION/ANXIETY Metformin HCl 1,000 mg 04/25/20 17:00 04/29/20 17:20 Glucophage PO 1,000 mg BID-WM HARPREET Administration Potassium Chloride 40 meq 04/28/20 08:00 04/29/20 17:20 K-Dur PO 40 meq BID-WM HARPREET Administration Sodium Chloride 10 ml 04/24/20 02:11 04/28/20 20:53 Flush - Normal Saline IVF 10 ml PRN PRN Administration Saline Flush Spironolactone 50 mg 04/25/20 08:00 04/29/20 17:20 Aldactone PO 50 mg BID-WM HARPREET Administration Thiamine HCl 100 mg 04/24/20 09:00 04/29/20 09:41 Thiamine PO 100 mg DAILY HARPREET Administration - Exam General - other findings: incomprehensible speech Neck: no JVD Heart: RRR, no murmur Respiratory: CTAB Gastrointestinal: soft, normal bowel sounds Extremities: 1+ LE edema Hosp A/P (1) Bacteremia due to Gram-positive bacteria Code(s): R78.81 - BACTEREMIA Status: Acute (2) Acute metabolic encephalopathy Code(s): G93.41 - METABOLIC ENCEPHALOPATHY Status: Acute (3) Acute respiratory failure with hypoxia Code(s): J96.01 - ACUTE RESPIRATORY FAILURE WITH HYPOXIA Status: Acute (4) Concussion Code(s): S06.0X9A - CONCUSSION W LOSS OF CONSCIOUSNESS OF UNSP DURATION, INIT Status: Acute (5) Alcohol abuse Code(s): F10.10 - ALCOHOL ABUSE, UNCOMPLICATED Status: Acute (6) Cirrhosis, alcoholic Code(s): K70.30 - ALCOHOLIC CIRRHOSIS OF LIVER WITHOUT ASCITES Status: Acute Qualifiers: Ascites presence: without ascites Qualified Code(s): K70.30 - Alcoholic cirrhosis of liver without ascites (7) Hypokalemia Code(s): E87.6 - HYPOKALEMIA Status: Acute (8) Hypomagnesemia Code(s): E83.42 - HYPOMAGNESEMIA Status: Acute (9) Hyponatremia Code(s): E87.1 - HYPO-OSMOLALITY AND HYPONATREMIA Status: Acute (10) DM type 2 (diabetes mellitus, type 2) Status: Chronic Qualifiers: 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
[2020-04-30] MEDS: metFORMIN 500 MG TAB PO SCH ×2 (10:01→17:36)
[2020-04-30] MEDS: Folic Acid 1 MG TAB PO SCH (10:03)
[2020-04-30] MEDS: Thiamine 100 MG TAB PO SCH (10:03)
[2020-04-30] MEDS: Spironolactone 25 MG TAB PO SCH ×2 (10:03→17:36)
[2020-04-30] MEDS: HYDROcodone/Acetaminophen 10/325 mg Tablet PO PRN ×2 (10:04→17:38)
[2020-04-30] MEDS: Escitalopram Oxalate 20 mg Tablet PO SCH (10:05)
[2020-04-30] MEDS: cefTRIAXone\\ROCEPHIN 2 GM in Sodium Chloride 0.9% 100 ML IVPB SCH (13:07)
[2020-04-30] MEDS: Potassium Chloride 20 MEQ TAB PO SCH (14:20)
[2020-04-30] MEDS: Insulin Glargine 10 UNITS in Pre-Filled Syringe 1 EACH SC SCH (19:55)
[2020-04-30] MEDS: Lorazepam 2 MG/ML VIAL SLOW IVP PRN (20:50)
[2020-05-01] MEDS: Lorazepam 2 MG/ML VIAL SLOW IVP PRN ×3 (04:53→21:29)
[2020-05-01] MEDS: Spironolactone 25 MG TAB PO SCH ×2 (09:16→18:16)
[2020-05-01] MEDS: Folic Acid 1 MG TAB PO SCH (09:16)
[2020-05-01] MEDS: Escitalopram Oxalate 20 mg Tablet PO SCH (09:16)
[2020-05-01] MEDS: Potassium Chloride 20 MEQ TAB PO SCH (09:18)
[2020-05-01] MEDS: Thiamine 100 MG TAB PO SCH (09:19)
[2020-05-01] MEDS: metFORMIN 500 MG TAB PO SCH ×3 (09:19→18:16)
--- NOTE | 2020-05-01 09:29 | PDOC.HOSPP ---
- Subjective Encounter Date: 05/01/20 Encounter Time: 09:24 Subjective: cont to be encephaopathic - Objective Vital Signs & Weight: Vital Signs (12 hours) Temp Pulse Resp BP Pulse Ox 05/01/20 07:41 97.6 F 83 18 137/67 97 05/01/20 03:46 97.5 F L 84 20 136/64 96 04/30/20 23:45 97.6 F 88 20 132/70 95 Weight Admit Weight 217 lb 2.485 oz Weight 196 lb 6 oz I&O: 04/30/20 05/01/20 05/02/20 06:59 06:59 06:59 Intake Total 610 Balance 610 Result Diagrams: 04/29/20 09:13 04/29/20 09:13 Additional Labs: Accuchecks 04/30/20 10:24 POC Glucose 167 H Hospitalist ROS - Medication Medications: Active Medications Generic Name Dose Route Start Last Admin Trade Name Freq PRN Reason Stop Dose Admin Hydrocodone Bitart/Acetaminophen 1 tab 04/24/20 19:13 04/29/20 21:19 [place] 10/325 PO 1 tab Q4H PRN Administration Moderate Pain (4-6) Hydrocodone Bitart/Acetaminophen 2 tab 04/24/20 19:13 04/30/20 17:38 [place] 10/325 PO 2 tab Q4H PRN Administration Severe Pain (7-10) Escitalopram Oxalate 20 mg 04/25/20 09:00 04/30/20 10:05 Lexapro PO 20 mg DAILY HARPREET Administration Folic Acid 1 mg 04/24/20 09:00 04/30/20 10:03 Folvite PO 1 mg DAILY HARPREET Administration Insulin Glargine 10 units/ 0.1 mls @ 0 mls/hr 04/24/20 21:00 04/30/20 19:55 Miscellaneous Medication SC Not Given HS HARPREET Ceftriaxone Sodium 2 gm/ 100 mls @ 200 mls/hr 04/27/20 13:00 04/30/20 13:07 Sodium Chloride IVPB 100 mls 1300 HARPREET Administration Insulin Human Lispro 0 units 04/24/20 01:54 04/29/20 10:38 Humalog SC 2 unit .MODERATE SLIDING SC PRN Administration Moderate Correctional Scale Lactulose 20 gm 04/27/20 21:00 04/30/20 19:58 Lactulose PO 20 gm BID HARPREET Administration Lorazepam 1 mg 04/28/20 04:43 05/01/20 04:53 Ativan SLOW IVP 1 mg Q6H PRN Administration AGITATION/ANXIETY Metformin HCl 1,000 mg 04/25/20 17:00 04/30/20 17:36 Glucophage PO 1,000 mg BID-WM HARPREET Administration Sodium Chloride 10 ml 04/24/20 02:11 04/28/20 20:53 Flush - Normal Saline IVF 10 ml PRN PRN Administration Saline Flush Spironolactone 50 mg 04/25/20 08:00 04/30/20 17:36 Aldactone PO 50 mg BID-WM HARPREET Administration Thiamine HCl 100 mg 04/24/20 09:00 04/30/20 10:03 Thiamine PO 100 mg DAILY HARPREET Administration - Exam Neck: no JVD Heart: RRR, no murmur Respiratory: CTAB Gastrointestinal: soft, non-tender, normal bowel sounds Extremities: 1+ LE edema Hosp A/P (1) Bacteremia due to Gram-positive bacteria Code(s): R78.81 - BACTEREMIA Status: Acute (2) Acute metabolic encephalopathy Code(s): G93.41 - METABOLIC ENCEPHALOPATHY Status: Acute (3) Acute respiratory failure with hypoxia Code(s): J96.01 - ACUTE RESPIRATORY FAILURE WITH HYPOXIA Status: Resolved (4) Concussion Code(s): S06.0X9A - CONCUSSION W LOSS OF CONSCIOUSNESS OF UNSP DURATION, INIT Status: Resolved Qualifiers: Encounter type: initial encounter (5) Alcohol abuse Code(s): F10.10 - ALCOHOL ABUSE, UNCOMPLICATED Status: Acute (6) Cirrhosis, alcoholic Code(s): K70.30 - ALCOHOLIC CIRRHOSIS OF LIVER WITHOUT ASCITES Status: Acute Qualifiers: Ascites presence: without ascites Qualified Code(s): K70.30 - Alcoholic cirrhosis of liver without ascites (7) Hypokalemia Code(s): E87.6 - HYPOKALEMIA Status: Acute (8) Hypomagnesemia Code(s): E83.42 - HYPOMAGNESEMIA Status: Acute (9) Hyponatremia Code(s): E87.1 - HYPO-OSMOLALITY AND HYPONATREMIA Status: Acute (10) DM type 2 (diabetes mellitus, type 2) Status: Chronic Qualifiers: 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
[2020-05-01] MEDS: cefTRIAXone\\ROCEPHIN 2 GM in Sodium Chloride 0.9% 100 ML IVPB SCH (12:05)
--- NOTE | 2020-05-01 14:27 | CON ---
NEUROLOGY CONSULTATION DATE OF CONSULTATION: 05/01/2020 REASON FOR CONSULTATION: Altered mental status, rule out Wernicke encephalopathy. HISTORY OF PRESENT ILLNESS: Mr. Arnoldo Crowley is a 49-year-old male with history significant for alcoholic cirrhosis due to alcohol abuse, diabetes, hypertension , presented to the hospital with altered mental status and generalized weakness. In the emergency room, he was found to have rhabdomyolysis, and a trauma workup was done since according to the patient, he went to the restroom and had to crawl on the floor because he suffered multiple falls while he was trying to walk. He was admitted to [facility] on 04/24/2020, and since then, the patient has exhibited generalized weakness and muscle aches, but denies any focal weakness. He does have altered mental status and increased agitation over the last few days, and Neurology was consulted to rule out Wernicke encephalopathy. REVIEW OF SYSTEMS: Unobtainable due to the patient's mental status. History is obtained from review of the medical records. PAST MEDICAL HISTORY: Diabetes and hypertension. PAST SURGICAL HISTORY: Hernia repair. FAMILY HISTORY: Significant for diabetes and hypertension. SOCIAL HISTORY: The patient smokes on a daily basis. History of heavy alcohol abuse. Denies illegal drug abuse. ALLERGIES: PCN, PIPER inhibitors, lisinopril, vancomycin Objective Vital Signs & Weight: Vital Signs (12 hours) Temp Pulse Resp BP Pulse Ox 05/01/20 07:41 97.6 F 83 18 137/67 97 05/01/20 03:46 97.5 F L 84 20 136/64 96 04/30/20 23:45 97.6 F 88 20 132/70 95 Weight Admit Weight 217 lb 2.485 oz Weight 196 lb 6 oz I&O: 04/30/20 05/01/20 05/02/20 06:59 06:59 06:59 Intake Total 610 Balance 610 Additional Labs: Accuchecks 04/30/20 10:24 POC Glucose 167 H Active Medications Generic Name Dose Route Start Last Admin Trade Name Freq PRN Reason Stop Dose Admin Hydrocodone Bitart/Acetaminophen 1 tab 04/24/20 19:13 04/29/20 21:19 [place] 10/325 PO 1 tab Q4H PRN Administration Moderate Pain (4-6) Hydrocodone Bitart/Acetaminophen 2 tab 04/24/20 19:13 04/30/20 17:38 [place] 10/325 PO 2 tab Q4H PRN Administration Severe Pain (7-10) Escitalopram Oxalate 20 mg 04/25/20 09:00 04/30/20 10:05 Lexapro PO 20 mg DAILY HARPREET Administration Folic Acid 1 mg 04/24/20 09:00 04/30/20 10:03 Folvite PO 1 mg DAILY HARPREET Administration Insulin Glargine 10 units/ 0.1 mls @ 0 mls/hr 04/24/20 21:00 04/30/20 19:55 Miscellaneous Medication SC Not Given HS HARPREET Ceftriaxone Sodium 2 gm/ 100 mls @ 200 mls/hr 04/27/20 13:00 04/30/20 13:07 Sodium Chloride IVPB 100 mls 1300 HARPREET Administration Insulin Human Lispro 0 units 04/24/20 01:54 04/29/20 10:38 Humalog SC 2 unit .MODERATE SLIDING SC PRN Administration Moderate Correctional Scale Lactulose 20 gm 04/27/20 21:00 04/30/20 19:58 Lactulose PO 20 gm BID HARPREET Administration Lorazepam 1 mg 04/28/20 04:43 05/01/20 04:53 Ativan SLOW IVP 1 mg Q6H PRN Administration AGITATION/ANXIETY Metformin HCl 1,000 mg 04/25/20 17:00 04/30/20 17:36 Glucophage PO 1,000 mg BID-WM HARPREET Administration Sodium Chloride 10 ml 04/24/20 02:11 04/28/20 20:53 Flush - Normal Saline IVF 10 ml PRN PRN Administration Saline Flush Spironolactone 50 mg 04/25/20 08:00 04/30/20 17:36 Aldactone PO 50 mg BID-WM HARPREET Administration Thiamine HCl 100 mg 04/24/20 09:00 04/30/20 10:03 Thiamine PO 100 mg DAILY HARPREET Administration PHYSICAL EXAMINATION: GENERAL: Extremely agitated male, in acute distress. HEENT: Normocephalic. He has bruises on the skin, raccoon eyes, bruise nose. NECK: Supple. CVS: Regular rate and rhythm. CHEST: Clear. ABDOMEN: Soft. NEUROLOGIC: Mental status; the patient is awake, alert, but does not follow commands, does not maintain eye contact. He does not response to verbal stimuli. Cranial nerves; pupils, 4 mm, round, and reactive to light. Face symmetric. Tongue midline. Moves neck in both directions. Hearing seems to be intact. Motor; muscle tone and bulk are normal. Moving all 4 extremities equally and symmetrically. Cerebellar; did not cooperate with the testing. Gait deferred due to the patient's safety reason. LABORATORY AND DIAGNOSTIC DATA: Data reviewed. Data is significant for anemia, hemoglobin 10.2, hematocrit is 33.9. Hyponatremia 129 and hyperglycemia 430 on initial presentation. Radiology interpretation, head CT and full trauma workup showed nasal fracture. ASSESSMENT AND PLAN: Mr. Arnoldo Crowley is consulted for altered mental status to rule out Wernicke encephalopathy. The patient's altered mental status is likely related to metabolic encephalopathy, hyponatremia, and acute kidney injury; however, Wernicke encephalopathy cannot be ruled out. It is also in the differential, However, the patient does not have nystagmus or oculomotor dysfunction. Recommend MRI to further evaluate for brain lesions. EEG reviewed, which was negative for seizure activity. Continue hiamine trial for possible Wernicke encephalopathy. Neuro checks every 4 hours. Continue CIWA protocol. Continue medical management per primary team. We will continue to follow. Thank you for the consult. Job ID: [id number] MTDD
[2020-05-01] MEDS: HYDROcodone/Acetaminophen 10/325 mg Tablet PO PRN (15:03)
[2020-05-01] MEDS: Insulin Glargine 10 UNITS in Pre-Filled Syringe 1 EACH SC SCH (20:40)
[2020-05-02] MEDS: Folic Acid 1 MG TAB PO SCH (08:38)
[2020-05-02] MEDS: Spironolactone 25 MG TAB PO SCH ×2 (08:38→17:54)
[2020-05-02] MEDS: Potassium Chloride 20 MEQ TAB PO SCH (08:38)
[2020-05-02] MEDS: Thiamine 100 MG TAB PO SCH (08:38)
[2020-05-02] MEDS: Escitalopram Oxalate 20 mg Tablet PO SCH (08:38)
[2020-05-02] MEDS: metFORMIN 500 MG TAB PO SCH ×2 (08:38→17:53)
[2020-05-02] MEDS ORDERED: Iopamidol-370 76% 500 ML 1 ML ONE (11:49)
--- NOTE | 2020-05-02 11:49 | PDOC.HOSPP ---
- Subjective Encounter Date: 05/02/20 Subjective: NEUROLOGY PROGRESS NOTE Patient extremely somnolent and does not follow commands. EEG nrgative for seizure activity. - Objective Vital Signs & Weight: Vital Signs (12 hours) Temp Pulse Resp BP BP BP Pulse Ox 05/02/20 11:38 97.8 F 73 16 172/79 H 96 05/02/20 08:38 138/73 96 05/02/20 07:34 98.0 F 79 16 138/73 96 05/02/20 05:29 98.2 F 77 20 143/66 H 97 Weight Admit Weight 217 lb 2.485 oz Weight 196 lb 6 oz I&O: 05/01/20 05/02/20 05/03/20 06:59 06:59 06:59 Intake Total 140 Balance 140 Result Diagrams: 04/29/20 09:13 04/29/20 09:13 Radiology Reviewed by me: Yes EKG Reviewed by me: Yes Hospitalist ROS - Review of Systems ROS unobtainable: due to mental status - Medication Medications: Active Medications Generic Name Dose Route Start Last Admin Trade Name Freq PRN Reason Stop Dose Admin Hydrocodone Bitart/Acetaminophen 1 tab 04/24/20 19:13 04/29/20 21:19 [place] 10/325 PO 1 tab Q4H PRN Administration Moderate Pain (4-6) Hydrocodone Bitart/Acetaminophen 2 tab 04/24/20 19:13 05/01/20 15:03 [place] 10/325 PO 2 tab Q4H PRN Administration Severe Pain (7-10) Escitalopram Oxalate 20 mg 04/25/20 09:00 05/02/20 08:38 Lexapro PO 20 mg DAILY HARPREET Administration Folic Acid 1 mg 04/24/20 09:00 05/02/20 08:38 Folvite PO 1 mg DAILY HARPREET Administration Insulin Glargine 10 units/ 0.1 mls @ 0 mls/hr 04/24/20 21:00 05/01/20 20:40 Miscellaneous Medication SC Not Given HS HARPREET Ceftriaxone Sodium 2 gm/ 100 mls @ 200 mls/hr 04/27/20 13:00 05/01/20 12:05 Sodium Chloride IVPB 100 mls 1300 HARPREET Administration Insulin Human Lispro 0 units 04/24/20 01:54 04/29/20 10:38 Humalog SC 2 unit .MODERATE SLIDING SC PRN Administration Moderate Correctional Scale Lactulose 20 gm 04/27/20 21:00 05/02/20 08:50 Lactulose PO 20 gm BID HARPREET Administration Lorazepam 1 mg 04/28/20 04:43 05/01/20 21:29 Ativan SLOW IVP 1 mg Q6H PRN Administration AGITATION/ANXIETY Metformin HCl 1,000 mg 04/25/20 17:00 05/02/20 08:38 Glucophage PO Not Given BID-WM HARPREET Potassium Chloride 20 meq 05/01/20 08:00 05/02/20 08:38 K-Dur PO 20 meq QAM-WM HARPREET Administration Sodium Chloride 10 ml 04/24/20 02:11 04/28/20 20:53 Flush - Normal Saline IVF 10 ml PRN PRN Administration Saline Flush Spironolactone 50 mg 04/25/20 08:00 05/02/20 08:38 Aldactone PO 50 mg BID-WM HARPREET Administration Thiamine HCl 100 mg 04/24/20 09:00 05/02/20 08:38 Thiamine PO 100 mg DAILY HARPREET Administration - Exam General Appearance: ill appearing Eye: PERRL ENT: normocephalic atraumatic Neck: supple Heart: RRR Respiratory: CTAB Gastrointestinal: soft Extremities: no cyanosis Skin: normal turgor Neurological: no focal deficits, no new deficit Musculoskeletal: no muscle wasting Psychiatric: not oriented Hosp A/P (1) Acute metabolic encephalopathy Code(s): G93.41 - METABOLIC ENCEPHALOPATHY Status: Acute (2) Bacteremia due to Gram-positive bacteria Code(s): R78.81 - BACTEREMIA Status: Acute (3) Elevated troponin Code(s): R79.89 - OTHER SPECIFIED ABNORMAL FINDINGS OF BLOOD CHEMISTRY Status : Acute (4) Fever Code(s): R50.9 - FEVER, UNSPECIFIED Status: Acute (5) Nondisplaced right frontal skull fracture Code(s): S02.0XXA - FRACTURE OF VAULT OF SKULL, INIT ENCNTR FOR CLOSED FRACTURE Status: Acute - Plan 49 year old consulted for altered mental status. Altered mental status seem to be multifactorial due to infectious and metabolic etiology. Wernicke is also in the differential with history of alcohol abuse. Continue Thiamine. Neurochecks every 4 hours. Continue home medications. EEG reviewed and was negative for seizure activity. Continue medical management per primary team. MRI Brain pending to asses brain lesions. PT/OT/Speech when stable.
[2020-05-02] MEDS: cefTRIAXone\\ROCEPHIN 2 GM in Sodium Chloride 0.9% 100 ML IVPB SCH (12:08)
--- NOTE | 2020-05-02 12:12 | EEG ---
DATE OF SERVICE: 05/01/2020 ATTENDING PHYSICIAN: Angelika Ugarte MD This EEG was performed using 24-channel Via [employer] video digital EEG machine with 24-disk electrodes. This was an extended 2-hour 5-minute of inpatient video EEG recording. Digital analysis of the EEG was done for spike and seizure detection, which revealed no abnormalities. BACKGROUND: The posterior background rhythm was not observed. HYPERVENTILATION: Not performed. PHOTIC STIMULATION: Not performed. SLEEP: Drowsiness and sleep are observed. EEG DIAGNOSES: 1. Occasional irregular theta activity seen throughout the recording. 2. Absence of posterior background rhythm. CLINICAL INTERPRETATION: This EEG is consistent with moderate generalized nonspecific cerebral dysfunction. No ictal or interictal epileptiform abnormalities seen during the recording. Job ID: [id number]
--- NOTE | 2020-05-02 13:26 | PDOC.HOSPP ---
- Subjective Encounter Date: 05/02/20 Encounter Time: 09:35 Subjective: awake, keeps eyes closed, does not follow verbal stimuli, moans occasionally - Objective Vital Signs & Weight: Vital Signs (12 hours) Temp Pulse Resp BP BP BP Pulse Ox 05/02/20 11:38 97.8 F 73 16 172/79 H 96 05/02/20 08:38 138/73 96 05/02/20 07:34 98.0 F 79 16 138/73 96 05/02/20 05:29 98.2 F 77 20 143/66 H 97 Weight Admit Weight 217 lb 2.485 oz Weight 196 lb 6 oz I&O: 05/01/20 05/02/20 05/03/20 06:59 06:59 06:59 Intake Total 140 Balance 140 Result Diagrams: 04/29/20 09:13 04/29/20 09:13 Hospitalist ROS - Medication Medications: Active Medications Generic Name Dose Route Start Last Admin Trade Name Freq PRN Reason Stop Dose Admin Hydrocodone Bitart/Acetaminophen 1 tab 04/24/20 19:13 04/29/20 21:19 [place] 10/325 PO 1 tab Q4H PRN Administration Moderate Pain (4-6) Hydrocodone Bitart/Acetaminophen 2 tab 04/24/20 19:13 05/01/20 15:03 [place] 10/325 PO 2 tab Q4H PRN Administration Severe Pain (7-10) Escitalopram Oxalate 20 mg 04/25/20 09:00 05/02/20 08:38 Lexapro PO 20 mg DAILY HARPREET Administration Folic Acid 1 mg 04/24/20 09:00 05/02/20 08:38 Folvite PO 1 mg DAILY HARPREET Administration Insulin Glargine 10 units/ 0.1 mls @ 0 mls/hr 04/24/20 21:00 05/01/20 20:40 Miscellaneous Medication SC Not Given HS HARPREET Ceftriaxone Sodium 2 gm/ 100 mls @ 200 mls/hr 04/27/20 13:00 05/02/20 12:08 Sodium Chloride IVPB 100 mls 1300 HARPREET Administration Insulin Human Lispro 0 units 04/24/20 01:54 04/29/20 10:38 Humalog SC 2 unit .MODERATE SLIDING SC PRN Administration Moderate Correctional Scale Lactulose 20 gm 04/27/20 21:00 05/02/20 08:50 Lactulose PO 20 gm BID HARPREET Administration Lorazepam 1 mg 04/28/20 04:43 05/01/20 21:29 Ativan SLOW IVP 1 mg Q6H PRN Administration AGITATION/ANXIETY Metformin HCl 1,000 mg 04/25/20 17:00 05/02/20 08:38 Glucophage PO Not Given BID-WM HARPREET Potassium Chloride 20 meq 05/01/20 08:00 05/02/20 08:38 K-Dur PO 20 meq QAM-WM HARPREET Administration Sodium Chloride 10 ml 04/24/20 02:11 04/28/20 20:53 Flush - Normal Saline IVF 10 ml PRN PRN Administration Saline Flush Spironolactone 50 mg 04/25/20 08:00 05/02/20 08:38 Aldactone PO 50 mg BID-WM HARPREET Administration Thiamine HCl 100 mg 04/24/20 09:00 05/02/20 08:38 Thiamine PO 100 mg DAILY HARPREET Administration - Exam General Appearance: ill appearing Eye: PERRL, anicteric sclera ENT: no oropharyngeal lesions, dry oral mucosa Neck: supple, no JVD Heart: RRR, no murmur Respiratory: no wheezes, no rales Gastrointestinal: soft, non-tender, non-distended, normal bowel sounds Extremities: no cyanosis, 1+ LE edema Extremities - other findings: echymosis and petechiae all over Neurological: cranial nerve grossly intact, no focal deficits Hosp A/P (1) Coagulopathy Status: Acute (2) Acute metabolic encephalopathy Code(s): G93.41 - METABOLIC ENCEPHALOPATHY Status: Acute (3) Moderate protein malnutrition Code(s): E44.0 - MODERATE PROTEIN-CALORIE MALNUTRITION Status: Chronic (4) Alcohol abuse Code(s): F10.10 - ALCOHOL ABUSE, UNCOMPLICATED Status: Chronic (5) Cirrhosis, alcoholic Code(s): K70.30 - ALCOHOLIC CIRRHOSIS OF LIVER WITHOUT ASCITES Status: Chronic Qualifiers: Ascites presence: without ascites Qualified Code(s): K70.30 - Alcoholic cirrhosis of liver without ascites (6) Hyponatremia Code(s): E87.1 - HYPO-OSMOLALITY AND HYPONATREMIA Status: Acute (7) Rhabdomyolysis Code(s): M62.82 - RHABDOMYOLYSIS Status: Resolved Qualifiers: Rhabdomyolysis type: traumatic (8) Anxiety and depression Code(s): F41.9 - ANXIETY DISORDER, UNSPECIFIED; F32.9 - MAJOR DEPRESSIVE DISORDER, SINGLE EPISODE, UNSPECIFIED Status: Chronic (9) DM type 2 (diabetes mellitus, type 2) Status: Chronic Qualifiers: 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 use: without marine oil terminal superintendent use Diabetes mellitus complication status: without complication Qualified Code(s): E11.9 - Type 2 diabetes mellitus without complications (10) Hypertension Code(s): I10 - ESSENTIAL (PRIMARY) HYPERTENSION Status: Chronic Qualifiers: Hypertension type: essential hypertension Qualified Code(s): I10 - Essential (primary) hypertension (11) Microcytic anemia Code(s): D50.9 - IRON DEFICIENCY ANEMIA, UNSPECIFIED Status: Chronic - Plan still encephalopathic encourage po intake if cleared to eat has multiple echymosis and petechiae is on ceftriaxone, lactulose, thiamine, folic acid, lexapro, metformin, spironolactone poor prognosis suggest sitter and remove restraints, if needed may use mittens
[2020-05-02] MEDS: Lorazepam 2 MG/ML VIAL SLOW IVP PRN (14:06)
[2020-05-02] MEDS: HYDROcodone/Acetaminophen 10/325 mg Tablet PO PRN (15:02)
[2020-05-02 18:37] LABS: HBCM Index 0.19 S/CO (0-0.79); HBSAg Index 0.23 S/CO (0-0.99); HIV (1/2) Antibody/Antigen Non-Reactive (NonReactive); Hep A IgM AB Non-Reactive (NonReactive); Hep A IgM S/CO 0.43 S/CO (0-0.79); Hep B Surf Ag Non-Reactive S/CO (NonReactive); Hep C IgG Ab Non-Reactive (NonReactive); Hepatitis B Core IgM Abs Non-Reactive (NonReactive)
--- NOTE | 2020-05-02 19:39 | CT ---
EXAM: CT chest, abdomen, and pelvis with IV contrast: HISTORY: Bacteremia. Altered mental status. COMPARISON: CTA chest and abdomen on 07/20/[address] a thorax on 05/16/2019 FINDINGS: CT THORAX: Lungs: There is consolidation seen in the posterior aspect right lower lobe which may be related to a telectasis. However, lungs are otherwise clear. Pneumonia is a possibility. Pleura: No pleural effusion. Lymph nodes: No lymphadenopathy. Mediastinum: The heart is mildly enlarged. Vascular calcifications are seen in the thoracic aorta as well as involving the coronary arteries. No enlarged lymph nodes are seen. Chest wall: No abnormalities CT ABDOMEN AND PELVIS: Liver: Small low-attenuation densities are again seen involving the right and left hepatic lobes unch anged when compared to prior exams. Gallbladder: Surgically absent.\ Pancreas: Within normal limits. Spleen:Enlarged measuring 14.9 cm in craniocaudal dimensions. Adrenal glands: Within normal limits. Kidneys: Stable small hypodense lesion seen midportion right kidney statistically likely representing a cyst. There has been interval enlargement of a hypodense superior pole left renal lesion measures 2.3 cm, and this previously measured 1.8 cm on a prior study in 2016. This cannot be charact erized as a simple cyst based on this exam. This was also not characterized as a simple cyst on prior study. Follow-up CT with and without IV contrast is recommended for further evaluation. Subcent imeter too small to characterize hypodense lesion is seen inferior pole left kidney. Urinary Bladder: The urinary bladder is unremarkable. Reproductive organs: Within normal limits for patient's age. Vessels: Again noted are multiple varices seen in the left upper quadrant with evidence of a splenore nal shunt. The portal vein does appear patent. Splenic vein is mildly dilated measuring 1.5 cm in diameter. Findings are unchanged when compared to prior study in 2016. Bowel: Normal in caliber. Adenopathy:No lymphadenopathy within the abdomen or pelvis. Peritoneum: No free fluid or fluid collection is seen. No free intraperitoneal gas is identified. Abdominal wall: There is a umbilical hernia present which was also noted on prior study in 2016, but a loop of bowel extends into this defect. There is no evidence of a bowel obstruction. Osseous structures: Mild degenerative changes in the spine with partial visualization of postoperativ e changes related to anterior cervical fusion lower cervical spine. IMPRESSION: 1. Consolidation at the posterior right lung base which may be related to volume loss versus pneumoni a. Follow-up to resolution is recommended. 2. Cardiomegaly. 3. Mild interval enlargement of a exophytic hypodense superior pole left renal lesion which measures 2.3 cm and previously measured 1.8 cm on study in 2016. This cannot be characterized as a simple cyst. Follow-up CT abdomen with and without IV contrast is recommended. 4. Splenomegaly with varices in the left upper quadrant and associated splenorenal shunt. This was al so seen on study in 2016. 5. Stable hypodense hepatic lesions likely related to hepatic cysts with stable hypodense lesion righ t kidney also likely related to a renal cyst. 6. Umbilical hernia containing a loop of small bowel, there is no evidence of a bowel obstruction. 7. No fluid collection is seen in the abdomen or pelvis to suggest abscess.
[2020-05-02] MEDS: Insulin Glargine 10 UNITS in Pre-Filled Syringe 1 EACH SC SCH (19:45)
[2020-05-03 06:07] LABS: ALT (SGPT) 38 U/L (8-55); AST (SGOT) 68 U/L (5-34); Albumin 2.4 g/dL (3.5-5.0); Alkaline Phosphatase 112 U/L (40-110); Anion Gap 13 mmol/L (10-20); BUN (Urea Nitrogen) 9 mg/dL (8.9-20.6); Bilirubin, Total 10.5 mg/dL (0.2-1.2); Calc. Creatinine Clearance 186 mL/min (70-130); Calcium 8.6 mg/dL (7.8-10.44); Carbon Dioxide 21 mmol/L (22-29); Chloride 108 mmol/L (98-107); Estimated GFR-MDRD Greater than 90; Globulin 4.5 g/dL (2.4-3.5); Glucose 150 mg/dL (70-105); Potassium 3.7 mmol/L (3.5-5.1); Protein, Total 6.9 g/dL (6.0-8.3); Sodium 138 mmol/L (136-145)
[2020-05-03 06:32] LABS: Band 10 % (5-11); Eosinophils 1 % (0-10); Hemoglobin 10.4 g/dL (14.0-18.0); Lymphocytes 20 % (21-51); MDiff Complete? YES; Mean Corpuscular HGB CONC 28.8 g/dL (32.0-36.0); Mean Corpuscular Hemoglobin 23.5 pg (27.0-31.0); Mean Corpuscular Volume 81.6 fL (78.0-98.0); Mean Platelet Volume 5.7 fL (7.4-10.4); Monocytes 17 % (0-10); Neutrophil 52 % (42-75); Platelet Count 53 thou/uL (130-400); Platelet Morphology Comment Appears Decreased; RBC Distribution Width 21.9 % (11.5-14.5); Red Blood Cell (RBC) Count 4.41 mill/uL (4.70-6.10); White Blood Cell (WBC) Count 4.9 thou/uL (4.8-10.8)
[2020-05-03] MEDS: Thiamine 100 MG TAB PO SCH (08:39)
[2020-05-03] MEDS: Potassium Chloride 20 MEQ TAB PO SCH (08:39)
[2020-05-03] MEDS: Spironolactone 25 MG TAB PO SCH (08:39)
[2020-05-03] MEDS: Folic Acid 1 MG TAB PO SCH (08:39)
[2020-05-03] MEDS: metFORMIN 500 MG TAB PO SCH (08:40)
[2020-05-03] MEDS: Escitalopram Oxalate 20 mg Tablet PO SCH (08:40)
--- NOTE | 2020-05-03 13:06 | CON ---
DATE OF CONSULTATION: 05/03/2020 REASON FOR CONSULTATION: Bacteremia. HISTORY OF PRESENT ILLNESS: A 49-year-old patient known to me from recent consultation at the end of March when he presented with a history of alcoholism, hypertension, liver cirrhosis, type 2 diabetes with prior episodes of cellulitis in the lower extremities. In 2016, he had a perforated pyloric channel ulcer, had a laparotomy, pyloroplasty, and cholecystectomy, he presented with altered mental state and multiple injuries of the skin over elbows and knees as well as urinary incontinence. The patient was found by his mother and brought with altered mental status to the emergency room. On arrival, his temperature was 102, pulse oximetry 97%, BP 104/50, and respirations 18. There was swelling of lower extremities, bruising, and multiple abrasions. Creatinine was 0.85. CRP 10. WBC count 7.1 with 82% neutrophils and platelets 52,000. Blood cultures one out of two positive for MRSA. The impression was poor hypertension, alcoholism with cirrhosis, pyloric channel ulcer with rupture requiring laparotomy and repair, cellulitis of lower extremity in the past, confusional state associated with MRSA bacteremia, which appears to be transient. We felt that the skin lesions were the source. No other apparent site was found to be possibly the culprit. He was given 4 weeks of IV vancomycin in view of his immunosuppression. It is not clear where the patient had the treatment given to him and he is not able to provide a history at this point. Anyway, his mother brought him back for pretty much a similar scenario that presented in the previous admission. He was confused and weak, unable to get out of bed, incontinent of urine and stool. Initial findings; BP 120/50, pulse 95, temperature 98.1, O2 saturations 98% on room air. Multiple areas of bruising. Raccoon eyes present. The lungs were clear. Heart exam was normal except for a mild systolic murmur. The previously noted edema was reduced. Initial findings included also white cell count of 8.0, hemoglobin 9.2, platelets 32,000. So, on the , he was having some headaches. He was unsteady and he was receiving insulin and thiamine. On the , he had metformin added and Lexapro. On the , temperature elevation was noted. Rocephin and azithromycin were added. Two sets of blood cultures from the 18th returned positive for group B Streptococcus. Concern with Wernicke encephalopathy was placed. Ammonia level was within normal limits. Neurology consult was placed and the impression was toxic metabolic encephalopathy. The possibility of Wernicke's was not ruled out. The patient had a CT abdomen, pelvis, and chest on 05/02 and he demonstrated consolidation in the posterior right lung base, cardiomegaly, hypodense lesion on left side, which is enlarged compared to a previous exam. There was splenomegaly, some hypodense hepatic lesions, probably hepatic cysts. EEG showed irregular theta activity consistent with moderate generalized nonspecific cerebral dysfunction. Currently, Mr. Crowley is very drowsy and obtunded. He is arousable, but will not interact in a meaningful way with the examiner. He will try to answer some questions, but he admits unintelligible sounds. Unable to follow commands. He is restrained in bed at the moment in the upper extremities. He is moving all extremities. PAST MEDICAL HISTORY: Includes, 1. Alcoholism. 2. Liver cirrhosis. 3. Portal hypertension. 4. Pyloric ulcer with rupture requiring exploratory laparotomy for repair. 5. Recurrent cellulitis in lower extremities. 6. Encephalopathy. 7. Recent episode of MRSA transient bacteremia, probably from skin. 8. Recurrence of altered mental state with group B Strep bacteremia of uncertain source. PSHx: Neck and back laminectomies, hernia repair. All: PCN (not true allergic reaction) Current meds: Ceftriaxone, Escitalopram, Folic acid, Insulin, Lactulose, Lorazepam, Odansetron Thiamine SHx: Alcoholism (still active), smoking FHx: non contributory PEx: Temp wnl through hospital stay, HR 79, 133/66, Osat 97 (RA) Multiple areas of bruising including under eyes (raccon eyes). EOMI, brii, dry oral mucosa, marked dental decay. Neck somewhat stiff. Diminished BS R base. A few insp crackles there. S1S2, rr, no S3. Nl apex impulse Abd mod dist, soft, no guarding, no ascites or masses, no bladder distension. Genital exam unremarkable, voiding in diaper. Muscle wasting. + 1-2 edema in extremities. Pulses 1+ DP, cap refill nl. Able to move extremities, does not follow commands, does not establish meaningful interaction. Labs: wbc 4.9 Hb 10.4, Plts 53k, INR 2.7, creat 0.6, Na 138, Bili 10.5, Alb 2.4 , Ammonia wnl x 3. BC x 2: GBS Echo: no vegs, nl EF. MRI brain: thalamic hyperintensities Assessment: 1.Alcoholism, malnutrition 2.Encephalopathy which did not reverse with lactulose and associated with nl ammonia 3.Thalamic hyperintensities consistent with Wernicke's 4. Recent MRSA bacteremia tx to completion (transient bacteremia without focal source identified) 5. GBS bacteremia of unknown primary site DISCUSSION: The differential diagnosis includes another skin process, which is less likely at this time since there is no evidence of active inflammatory process in cutaneous structures versus endocardial infection, an intraabdominal inflammatory process or central nervous system infection. He is not eligible for evaluation of the cerebrospinal fluid because of coagulopathy. At this point, we will increase dose of Rocephin to 2 g b.i.d. Discontinue remainder of antimicrobials and I think an MRI is scheduled whenever his mental state improves and that would help with the differential diagnosis. Also, we will order an echocardiogram if not done yet. 10% if hepatic encephalopathies manifest without increase in ammonia levels and he does have laboratory evidence of liver failure. The MRI is suggestive of Wernicke's though. Job ID: [id number] [facility]
--- NOTE | 2020-05-03 13:06 | PDOC.HOSPP ---
- Subjective Encounter Date: 05/03/20 Encounter Time: 08:15 Subjective: awakens easily, does not follow verbal stimuli - Objective Vital Signs & Weight: Vital Signs (12 hours) Temp Pulse Pulse Resp BP BP BP 05/03/20 12:00 97.5 F L 81 20 147/70 H 05/03/20 11:06 81 138/61 05/03/20 08:00 97.5 F L 80 20 142/70 H 05/03/20 04:46 97.8 F 80 19 142/66 H Pulse Ox 05/03/20 12:00 95 05/03/20 11:06 05/03/20 08:00 96 05/03/20 04:46 95 Weight Admit Weight 217 lb 2.485 oz Weight 196 lb 6 oz I&O: 05/02/20 05/03/20 05/04/20 06:59 06:59 06:59 Intake Total 140 100 120 Balance 140 100 120 Result Diagrams: 05/03/20 05:02 05/03/20 05:02 Additional Labs: Accuchecks 05/03/20 05/03/20 05/02/20 11:12 04:49 20:07 POC Glucose 195 H 143 H 175 H 05/02/20 05/02/20 05/02/20 16:05 11:42 05:31 POC Glucose 158 H 173 H 149 H 05/01/20 05/01/20 05/01/20 20:19 15:24 12:44 POC Glucose 142 H 170 H 141 H 05/01/20 04/30/20 04/30/20 05:18 19:46 16:41 POC Glucose 144 H 121 H 120 H Hospitalist ROS - Medication Medications: Active Medications Generic Name Dose Route Start Last Admin Trade Name Freq PRN Reason Stop Dose Admin Hydrocodone Bitart/Acetaminophen 1 tab 04/24/20 19:13 04/29/20 21:19 [place] 10/325 PO 1 tab Q4H PRN Administration Moderate Pain (4-6) Hydrocodone Bitart/Acetaminophen 2 tab 04/24/20 19:13 05/02/20 15:02 [place] 10/325 PO 2 tab Q4H PRN Administration Severe Pain (7-10) Escitalopram Oxalate 20 mg 04/25/20 09:00 05/03/20 08:40 Lexapro PO 20 mg DAILY HARPREET Administration Folic Acid 1 mg 04/24/20 09:00 05/03/20 08:39 Folvite PO 1 mg DAILY HARPREET Administration Insulin Glargine 10 units/ 0.1 mls @ 0 mls/hr 04/24/20 21:00 05/02/20 19:45 Miscellaneous Medication SC Not Given HS HARPREET Insulin Human Lispro 0 units 04/24/20 01:54 04/29/20 10:38 Humalog SC 2 unit .MODERATE SLIDING SC PRN Administration Moderate Correctional Scale Lactulose 20 gm 04/27/20 21:00 05/03/20 08:38 Lactulose PO 20 gm BID HARPREET Administration Lorazepam 1 mg 04/28/20 04:43 05/02/20 14:06 Ativan SLOW IVP 1 mg Q6H PRN Administration AGITATION/ANXIETY Potassium Chloride 20 meq 05/01/20 08:00 05/03/20 08:39 K-Dur PO 20 meq QAM-WM HARPREET Administration Sodium Chloride 10 ml 04/24/20 02:11 04/28/20 20:53 Flush - Normal Saline IVF 10 ml PRN PRN Administration Saline Flush Thiamine HCl 100 mg 04/24/20 09:00 05/03/20 08:39 Thiamine PO 100 mg DAILY HARPREET Administration - Exam General Appearance: ill appearing Eye: scleral icterus ENT: no oropharyngeal lesions, dry oral mucosa Neck: supple, no JVD Heart: RRR, no murmur Respiratory: no wheezes, no rales Gastrointestinal: soft, non-tender, non-distended, normal bowel sounds Extremities: no cyanosis, 1+ LE edema Neurological: cranial nerve grossly intact, no focal deficits Hosp A/P (1) Coagulopathy Status: Acute (2) Acute metabolic encephalopathy Code(s): G93.41 - METABOLIC ENCEPHALOPATHY Status: Acute (3) Moderate protein malnutrition Code(s): E44.0 - MODERATE PROTEIN-CALORIE MALNUTRITION Status: Chronic (4) Alcohol abuse Code(s): F10.10 - ALCOHOL ABUSE, UNCOMPLICATED Status: Chronic (5) Cirrhosis, alcoholic Code(s): K70.30 - ALCOHOLIC CIRRHOSIS OF LIVER WITHOUT ASCITES Status: Chronic Qualifiers: Ascites presence: without ascites Qualified Code(s): K70.30 - Alcoholic cirrhosis of liver without ascites (6) Hyponatremia Code(s): E87.1 - HYPO-OSMOLALITY AND HYPONATREMIA Status: Acute (7) Rhabdomyolysis Code(s): M62.82 - RHABDOMYOLYSIS Status: Resolved Qualifiers: Rhabdomyolysis type: traumatic (8) Anxiety and depression Code(s): F41.9 - ANXIETY DISORDER, UNSPECIFIED; F32.9 - MAJOR DEPRESSIVE DISORDER, SINGLE EPISODE, UNSPECIFIED Status: Chronic (9) DM type 2 (diabetes mellitus, type 2) Status: Chronic Qualifiers: Diabetes mellitus long term acute care registered nurse insulin use: without long term acute care registered nurse use Diabetes mellitus complication status: without complication Qualified Code(s): E11.9 - Type 2 diabetes mellitus without complications (10) Hypertension Code(s): I10 - ESSENTIAL (PRIMARY) HYPERTENSION Status: Chronic Qualifiers: Hypertension type: essential hypertension Qualified Code(s): I10 - Essential (primary) hypertension (11) Microcytic anemia Code(s): D50.9 - IRON DEFICIENCY ANEMIA, UNSPECIFIED Status: Chronic - Plan still encephalopathic encourage po intake if cleared to eat has multiple echymosis and petechiae is on ceftriaxone, lactulose, thiamine, folic acid, lexapro has elevated t.bili around 10 and ast around 300, likely has alc hepatitis, previous ammonia levels were normal poor prognosis suggest sitter and remove restraints, if needed may use mittens echo shows no obvious thrombus unclear if has sbp but no ascites was seen on prior usg abd d/w sister extensively yesterday
[2020-05-03] MEDS: cefTRIAXone\\ROCEPHIN 2 GM in Sodium Chloride 0.9% 100 ML IVPB SCH (14:22)
[2020-05-03] MEDS: Sodium Chloride 0.45% 1,000 ML IV SCH (14:23)
--- NOTE | 2020-05-03 16:12 | MRI ---
Exam: Brain MRI without contrast HISTORY: Altered mental status. CVA. Possible Wernicke's encephalopathy. COMPARISON: None FINDINGS: Examination is markedly limited due to motion degradation Calvarial marrow signal intensity: Appropriate T1 signal Hemorrhage: No definite parenchymal hemorrhage or extra axial hematoma Brain parenchyma: No mass, mass effect or midline shift. Brain volume, age-appropriate. Questionable T2 hyperintensity involving the mamillary bodies, dorsomedial thalami, periaqueductal carrillo matter and surrounding the third ventricle. Cortical carrillo-white matter differentiation: Preserved Restricted diffusion: Central arterial flow voids are maintained. Absent restricted diffusion White matter signal intensities:Minimal scattered T2 and FLAIR white matter hyperintensities. Sinuses: Adequate aeration of the paranasal sinuses and mastoid air cells. IMPRESSION: 1. Limited evaluation due to motion degradation. 2. Questionable subtle T2 and FLAIR hyperintensity without restricted diffusion involving the dorsome dial thalami, mammillary bodies, peripheral to the third ventricle and in the periaqueductal carrillo matter. Repeat imaging is recommended once the patient is able to comply and hold still during imagin g.
[2020-05-03] MEDS: Lorazepam 2 MG/ML VIAL SLOW IVP PRN (21:03)
[2020-05-03] MEDS: Insulin Glargine 10 UNITS in Pre-Filled Syringe 1 EACH SC SCH (21:12)
[2020-05-04] MEDS: cefTRIAXone\\ROCEPHIN 2 GM in Sodium Chloride 0.9% 100 ML IVPB SCH ×2 (01:32→13:07)
[2020-05-04] MEDS: Folic Acid 1 MG TAB PO SCH (09:01)
[2020-05-04] MEDS: Escitalopram Oxalate 20 mg Tablet PO SCH (09:01)
[2020-05-04] MEDS: Thiamine 100 MG TAB PO SCH (09:01)
[2020-05-04] MEDS: Potassium Chloride 20 MEQ TAB PO SCH (09:01)
[2020-05-04] MEDS: Sodium Chloride 0.45% 1,000 ML IV SCH (11:06)
--- NOTE | 2020-05-04 11:56 | PDOC.HOSPP ---
- Subjective Encounter Date: 05/04/20 Encounter Time: 09:45 Subjective: is moaning, but responds to verbal stimuli (opens mouth, moves his legs, protrudes tongue, opens and closes eyes to verbal stimuli) is not eating much per staff - Objective Vital Signs & Weight: Vital Signs (12 hours) Temp Pulse Resp BP BP Pulse Ox 05/04/20 11:49 98.0 F 85 16 137/67 97 05/04/20 07:07 97.5 F L 85 16 140/72 97 05/04/20 04:00 97.9 F 79 18 133/66 133/66 94 L 05/04/20 00:00 98.0 F 79 18 132/66 94 L Weight Admit Weight 217 lb 2.485 oz Weight 196 lb 6 oz I&O: 05/03/20 05/04/20 05/05/20 06:59 06:59 06:59 Intake Total 100 1200 Balance 100 1200 Result Diagrams: 05/03/20 05:02 05/03/20 05:02 Additional Labs: Accuchecks 05/04/20 05/03/20 05/03/20 05:27 20:58 16:22 POC Glucose 145 H 167 H 131 H 05/03/20 11:12 POC Glucose 195 H Hospitalist ROS - Medication Medications: Active Medications Generic Name Dose Route Start Last Admin Trade Name Freq PRN Reason Stop Dose Admin Hydrocodone Bitart/Acetaminophen 1 tab 04/24/20 19:13 04/29/20 21:19 [place] 10/325 PO 1 tab Q4H PRN Administration Moderate Pain (4-6) Hydrocodone Bitart/Acetaminophen 2 tab 04/24/20 19:13 05/02/20 15:02 [place] 10/325 PO 2 tab Q4H PRN Administration Severe Pain (7-10) Escitalopram Oxalate 20 mg 04/25/20 09:00 05/04/20 09:01 Lexapro PO 20 mg DAILY HARPREET Administration Folic Acid 1 mg 04/24/20 09:00 05/04/20 09:01 Folvite PO 1 mg DAILY HARPREET Administration Insulin Glargine 10 units/ 0.1 mls @ 0 mls/hr 04/24/20 21:00 05/03/20 21:12 Miscellaneous Medication SC 0.1 mls HS HARPREET Administration Ceftriaxone Sodium 2 gm/ 100 mls @ 200 mls/hr 05/03/20 13:00 05/04/20 01:32 Sodium Chloride IVPB 100 mls 0100,1300 HARPREET Administration Sodium Chloride 1,000 mls @ 50 mls/hr 05/03/20 13:15 05/04/20 11:06 1/2 Normal Saline IV 1,000 mls .Q20H HARPREET Administration Insulin Human Lispro 0 units 04/24/20 01:54 04/29/20 10:38 Humalog SC 2 unit .MODERATE SLIDING SC PRN Administration Moderate Correctional Scale Lactulose 20 gm 04/27/20 21:00 05/04/20 09:01 Lactulose PO 20 gm BID HARPREET Administration Lorazepam 1 mg 04/28/20 04:43 05/03/20 21:03 Ativan SLOW IVP 1 mg Q6H PRN Administration AGITATION/ANXIETY Potassium Chloride 20 meq 05/01/20 08:00 05/04/20 09:01 K-Dur PO 20 meq QAM-WM HARPREET Administration Sodium Chloride 10 ml 04/24/20 02:11 04/28/20 20:53 Flush - Normal Saline IVF 10 ml PRN PRN Administration Saline Flush Thiamine HCl 100 mg 04/24/20 09:00 05/04/20 09:01 Thiamine PO 100 mg DAILY HARPREET Administration - Exam General Appearance: ill appearing Eye: PERRL, anicteric sclera ENT: no oropharyngeal lesions, dry oral mucosa Neck: supple, no JVD Heart: RRR, no murmur Respiratory: no wheezes, no rales Gastrointestinal: soft, non-tender, non-distended, normal bowel sounds Extremities: no cyanosis, no edema Neurological: cranial nerve grossly intact, no focal deficits Hosp A/P (1) Coagulopathy Status: Acute (2) Acute metabolic encephalopathy Code(s): G93.41 - METABOLIC ENCEPHALOPATHY Status: Acute (3) Moderate protein malnutrition Code(s): E44.0 - MODERATE PROTEIN-CALORIE MALNUTRITION Status: Chronic (4) Alcohol abuse Code(s): F10.10 - ALCOHOL ABUSE, UNCOMPLICATED Status: Chronic (5) Cirrhosis, alcoholic Code(s): K70.30 - ALCOHOLIC CIRRHOSIS OF LIVER WITHOUT ASCITES Status: Chronic Qualifiers: Ascites presence: without ascites Qualified Code(s): K70.30 - Alcoholic cirrhosis of liver without ascites (6) Hyponatremia Code(s): E87.1 - HYPO-OSMOLALITY AND HYPONATREMIA Status: Acute (7) Rhabdomyolysis Code(s): M62.82 - RHABDOMYOLYSIS Status: Resolved Qualifiers: Rhabdomyolysis type: traumatic (8) Anxiety and depression Code(s): F41.9 - ANXIETY DISORDER, UNSPECIFIED; F32.9 - MAJOR DEPRESSIVE DISORDER, SINGLE EPISODE, UNSPECIFIED Status: Chronic (9) DM type 2 (diabetes mellitus, type 2) Status: Chronic Qualifiers: Diabetes mellitus alf insulin use: without alf use Diabetes mellitus complication status: without complication Qualified Code(s): E11.9 - Type 2 diabetes mellitus without complications (10) Hypertension Code(s): I10 - ESSENTIAL (PRIMARY) HYPERTENSION Status: Chronic Qualifiers: Hypertension type: essential hypertension Qualified Code(s): I10 - Essential (primary) hypertension (11) Microcytic anemia Code(s): D50.9 - IRON DEFICIENCY ANEMIA, UNSPECIFIED Status: Chronic - Plan still encephalopathic but getting slowly better, has MRI findings s/o Wernicke' s encephalopathy, await neuro opinion. encourage po intake, may get 1:1 sitter to help with encephalopathy and remove restraints has multiple echymosis and petechiae is on ceftriaxone, lactulose, thiamine, folic acid, lexapro has elevated t.bili around 10 and ast around 300 which is trending down, likely has alc hepatitis, previous ammonia levels were normal poor prognosis if needed may use mittens echo shows no obvious thrombus d/w sister extensively yesterday and day before. MRI was sub optimal due to motion artifact
--- NOTE | 2020-05-04 13:32 | PDOC.HOSPP ---
- Subjective Encounter Date: 05/04/20 Subjective: NEUROLOGY PROGRESS NOTE Patient opens eyes to verbal stimuli but does not respond or maintain eye contact - Objective Vital Signs & Weight: Vital Signs (12 hours) Temp Pulse Resp BP BP Pulse Ox 05/04/20 11:49 98.0 F 85 16 137/67 97 05/04/20 08:00 140/72 05/04/20 07:07 97.5 F L 85 16 140/72 97 05/04/20 04:00 97.9 F 79 18 133/66 133/66 94 L Weight Admit Weight 217 lb 2.485 oz Weight 196 lb 6 oz I&O: 05/03/20 05/04/20 05/05/20 06:59 06:59 06:59 Intake Total 100 1200 140 Balance 100 1200 140 Result Diagrams: 05/03/20 05:02 05/03/20 05:02 Additional Labs: Accuchecks 05/04/20 05/04/20 05/03/20 11:50 05:27 20:58 POC Glucose 159 H 145 H 167 H 05/03/20 16:22 POC Glucose 131 H Radiology Reviewed by me: Yes EKG Reviewed by me: Yes Hospitalist ROS - Review of Systems ROS unobtainable: due to mental status - Medication Medications: Active Medications Generic Name Dose Route Start Last Admin Trade Name Merlyn PRN Reason Stop Dose Admin Hydrocodone Bitart/Acetaminophen 1 tab 04/24/20 19:13 04/29/20 21:19 [place] 10/325 PO 1 tab Q4H PRN Administration Moderate Pain (4-6) Hydrocodone Bitart/Acetaminophen 2 tab 04/24/20 19:13 05/02/20 15:02 [place] 10/325 PO 2 tab Q4H PRN Administration Severe Pain (7-10) Escitalopram Oxalate 20 mg 04/25/20 09:00 05/04/20 09:01 Lexapro PO 20 mg DAILY HARPREET Administration Folic Acid 1 mg 04/24/20 09:00 05/04/20 09:01 Folvite PO 1 mg DAILY HARPREET Administration Insulin Glargine 10 units/ 0.1 mls @ 0 mls/hr 04/24/20 21:00 05/03/20 21:12 Miscellaneous Medication SC 0.1 mls HS HARPREET Administration Ceftriaxone Sodium 2 gm/ 100 mls @ 200 mls/hr 05/03/20 13:00 05/04/20 13:07 Sodium Chloride IVPB 100 mls 0100,1300 HARPREET Administration Sodium Chloride 1,000 mls @ 50 mls/hr 05/03/20 13:15 05/04/20 11:06 1/2 Normal Saline IV 1,000 mls .Q20H HARPREET Administration Insulin Human Lispro 0 units 04/24/20 01:54 04/29/20 10:38 Humalog SC 2 unit .MODERATE SLIDING SC PRN Administration Moderate Correctional Scale Lactulose 20 gm 04/27/20 21:00 05/04/20 09:01 Lactulose PO 20 gm BID HARPREET Administration Lorazepam 1 mg 04/28/20 04:43 05/03/20 21:03 Ativan SLOW IVP 1 mg Q6H PRN Administration AGITATION/ANXIETY Potassium Chloride 20 meq 05/01/20 08:00 05/04/20 09:01 K-Dur PO 20 meq QAM-WM HARPREET Administration Sodium Chloride 10 ml 04/24/20 02:11 04/28/20 20:53 Flush - Normal Saline IVF 10 ml PRN PRN Administration Saline Flush Thiamine HCl 100 mg 04/24/20 09:00 05/04/20 09:01 Thiamine PO 100 mg DAILY HARPREET Administration - Exam General Appearance: ill appearing Eye: PERRL ENT: normocephalic atraumatic Neck: supple Heart: RRR Respiratory: CTAB Gastrointestinal: soft Extremities: no cyanosis Skin: normal turgor Neurological: no weakness, no focal deficits, no new deficit Musculoskeletal: normal tone, no muscle wasting Psychiatric: not oriented, somnolent Hosp A/P (1) Acute metabolic encephalopathy Code(s): G93.41 - METABOLIC ENCEPHALOPATHY Status: Acute (2) Bacteremia due to Gram-positive bacteria Code(s): R78.81 - BACTEREMIA Status: Acute (3) Elevated troponin Code(s): R79.89 - OTHER SPECIFIED ABNORMAL FINDINGS OF BLOOD CHEMISTRY Status : Acute (4) Fever Code(s): R50.9 - FEVER, UNSPECIFIED Status: Acute (5) Nondisplaced right frontal skull fracture Code(s): S02.0XXA - FRACTURE OF VAULT OF SKULL, INIT ENCNTR FOR CLOSED FRACTURE Status: Acute - Plan PT/OT, DVT proph w/lovenox 49 year old consulted for altered mental status. Altered mental status seem to be multifactorial due to infectious and metabolic etiology. Wernicke is also in the differential with history of alcohol abuse. MRI brain reviewed. Limited study due to motion artifact. Subtle signal seen in thalami, periventricular white matter and mamillary bodies which is seen with Wernicke's encephalopathy. Continue Thiamine. Neurochecks every 4 hours. Continue home medications. EEG reviewed and was negative for seizure activity. Continue medical management per primary team. PT/OT/Speech when stable.
[2020-05-04] MEDS: Lorazepam 2 MG/ML VIAL SLOW IVP PRN (17:38)
[2020-05-04] MEDS: Insulin Glargine 10 UNITS in Pre-Filled Syringe 1 EACH SC SCH (20:18)
[2020-05-05] MEDS: cefTRIAXone\\ROCEPHIN 2 GM in Sodium Chloride 0.9% 100 ML IVPB SCH ×2 (00:28→12:00)
[2020-05-05] MEDS: Lorazepam 2 MG/ML VIAL SLOW IVP PRN ×3 (01:08→22:05)
[2020-05-05] MEDS: Sodium Chloride 0.45% 1,000 ML IV SCH ×2 (05:30→08:35)
[2020-05-05] MEDS: Potassium Chloride 20 MEQ TAB PO SCH (08:32)
[2020-05-05] MEDS: Thiamine 100 MG TAB PO SCH (08:32)
[2020-05-05] MEDS: Folic Acid 1 MG TAB PO SCH (08:32)
[2020-05-05] MEDS: Escitalopram Oxalate 20 mg Tablet PO SCH (08:32)
--- NOTE | 2020-05-05 10:22 | PDOC.HOSPP ---
- Subjective Encounter Date: 05/05/20 Encounter Time: 07:25 Subjective: awakens but is not oriented keeps talking, but doesn't make sense mouth is very dry and adds to noncomprehension of his speech - Objective Vital Signs & Weight: Vital Signs (12 hours) Temp Pulse Resp BP BP BP Pulse Ox 05/05/20 08:30 130/68 05/05/20 07:21 97.7 F 77 18 130/68 97 05/05/20 04:00 97.5 F L 73 20 144/78 H 20 L 05/05/20 00:00 98.0 F 75 20 159/63 H 94 L Weight Admit Weight 217 lb 2.485 oz Weight 172 lb 11.2 oz I&O: 05/04/20 05/05/20 05/06/20 06:59 06:59 06:59 Intake Total 1200 1530 Balance 1200 1530 Result Diagrams: 05/03/20 05:02 05/03/20 05:02 Additional Labs: Accuchecks 05/05/20 05/04/20 05/04/20 04:50 19:27 16:19 POC Glucose 140 H 118 H 151 H 05/04/20 11:50 POC Glucose 159 H Hospitalist ROS - Medication Medications: Active Medications Generic Name Dose Route Start Last Admin Trade Name Merlyn PRN Reason Stop Dose Admin Escitalopram Oxalate 20 mg 04/25/20 09:00 05/05/20 08:32 Lexapro PO 20 mg DAILY HARPREET Administration Folic Acid 1 mg 04/24/20 09:00 05/05/20 08:32 Folvite PO 1 mg DAILY HARPREET Administration Insulin Glargine 10 units/ 0.1 mls @ 0 mls/hr 04/24/20 21:00 05/04/20 20:18 Miscellaneous Medication SC Not Given HS HARPREET Ceftriaxone Sodium 2 gm/ 100 mls @ 200 mls/hr 05/03/20 13:00 05/05/20 00:28 Sodium Chloride IVPB 100 mls 0100,1300 HARPREET Administration Sodium Chloride 1,000 mls @ 50 mls/hr 05/03/20 13:15 05/05/20 08:35 1/2 Normal Saline IV 1,000 mls .Q20H HARPREET Administration Insulin Human Lispro 0 units 04/24/20 01:54 04/29/20 10:38 Humalog SC 2 unit .MODERATE SLIDING SC PRN Administration Moderate Correctional Scale Lactulose 20 gm 04/27/20 21:00 05/05/20 08:31 Lactulose PO 20 gm BID HARPREET Administration Lorazepam 1 mg 04/28/20 04:43 05/05/20 08:43 Ativan SLOW IVP 1 mg Q6H PRN Administration AGITATION/ANXIETY Potassium Chloride 20 meq 05/01/20 08:00 05/05/20 08:32 K-Dur PO 20 meq QAM-WM HARPREET Administration Sodium Chloride 10 ml 04/24/20 02:11 05/05/20 08:32 Flush - Normal Saline IVF 10 ml PRN PRN Administration Saline Flush Thiamine HCl 100 mg 04/24/20 09:00 05/05/20 08:32 Thiamine PO 100 mg DAILY HARPREET Administration - Exam General Appearance: ill appearing Eye: PERRL, scleral icterus ENT: no oropharyngeal lesions, dry oral mucosa Neck: supple, no JVD Heart: RRR, no murmur Respiratory: no wheezes, no rales Gastrointestinal: soft, non-tender, non-distended, normal bowel sounds Extremities: no cyanosis, no edema Neurological: cranial nerve grossly intact, no focal deficits Hosp A/P (1) Coagulopathy Status: Acute (2) Acute metabolic encephalopathy Code(s): G93.41 - METABOLIC ENCEPHALOPATHY Status: Acute (3) Moderate protein malnutrition Code(s): E44.0 - MODERATE PROTEIN-CALORIE MALNUTRITION Status: Chronic (4) Alcohol abuse Code(s): F10.10 - ALCOHOL ABUSE, UNCOMPLICATED Status: Chronic (5) Cirrhosis, alcoholic Code(s): K70.30 - ALCOHOLIC CIRRHOSIS OF LIVER WITHOUT ASCITES Status: Chronic Qualifiers: Ascites presence: without ascites Qualified Code(s): K70.30 - Alcoholic cirrhosis of liver without ascites (6) Hyponatremia Code(s): E87.1 - HYPO-OSMOLALITY AND HYPONATREMIA Status: Resolved (7) Rhabdomyolysis Code(s): M62.82 - RHABDOMYOLYSIS Status: Resolved Qualifiers: Rhabdomyolysis type: traumatic (8) Anxiety and depression Code(s): F41.9 - ANXIETY DISORDER, UNSPECIFIED; F32.9 - MAJOR DEPRESSIVE DISORDER, SINGLE EPISODE, UNSPECIFIED Status: Chronic (9) DM type 2 (diabetes mellitus, type 2) Status: Chronic Qualifiers: Diabetes mellitus custodial insulin use: without oysterman use Diabetes mellitus complication status: without complication Qualified Code(s): E11.9 - Type 2 diabetes mellitus without complications (10) Hypertension Code(s): I10 - ESSENTIAL (PRIMARY) HYPERTENSION Status: Chronic Qualifiers: Hypertension type: essential hypertension Qualified Code(s): I10 - Essential (primary) hypertension (11) Microcytic anemia Code(s): D50.9 - IRON DEFICIENCY ANEMIA, UNSPECIFIED Status: Chronic - Plan still encephalopathic, has MRI findings s/o Wernicke's encephalopathy. encourage po intake, may get 1:1 sitter to help with encephalopathy and remove restraints has multiple echymosis and petechiae is on ceftriaxone, lactulose, thiamine, folic acid, lexapro has elevated t.bili around 10 and ast around 300 which is trending down, likely has alc hepatitis, previous ammonia levels were normal poor prognosis if needed may use mittens echo shows no obvious thrombus d/w sister extensively 05/03 & 05/04. MRI was sub optimal due to motion artifact PT to mobilize as tolerated
--- NOTE | 2020-05-05 16:04 | PRG ---
DATE OF SERVICE: 05/05/2020 SUBJECTIVE: The patient is having a swallow evaluation at the moment. He keeps biting his lower lip. He is still restrained and they are trying to get a sitter. He is delirious and is unable to answer questions. He does not establish interaction with examiner. OBJECTIVE: VITAL SIGNS: His T-max 98, blood pressure 140/70, pulse 72, respirations 16, and O2 saturation 97% on room air GENERAL: Chronically ill appearing, no acute distress. HEENT: Ocular movements are conjugate. Scleral icterus. Area of hemorrhagic ulceration on right side of the lower lip. LUNGS: Symmetric air entry. HEART: S1, S2, regular rate. ABDOMEN: Soft, not distended. EXTREMITIES: With normal motility, but he does not follow commands.. LABORATORY DATA: White cell count 4.9, hemoglobin 10.4, platelets 53,000, 52% neutrophils, bands are at 10%, which is a significant improvement, and creatinine 0.6. Bilirubin 10.5. AST 68, albumin 2.4. Microbiology, as noted before, group B Streptococcus. The brain MRI as noted before. ASSESSMENT AND DISCUSSION: Alcoholism, encephalopathy, possible Wernicke's, recent MRSA bacteremia which has been treated to completion. Group B strep bacteremia, unknown primary site. Echocardiogram with no major findings. The patient has a higher dose of ceftriaxone because of the concern with [employer] infection and the inability to rule out meningitis that appears to be less likely in view of the findings on MRI. So I will go ahead and change it to once daily administration for the time being. 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 Job ID: [id number] [facility]
[2020-05-05] MEDS: Insulin Glargine 10 UNITS in Pre-Filled Syringe 1 EACH SC SCH (22:04)
[2020-05-06] MEDS: Sodium Chloride 0.45% 1,000 ML IV SCH ×2 (05:33→23:49)
[2020-05-06] MEDS: Potassium Chloride 20 MEQ TAB PO SCH (08:34)
[2020-05-06] MEDS: Escitalopram Oxalate 20 mg Tablet PO SCH (08:34)
[2020-05-06] MEDS: Folic Acid 1 MG TAB PO SCH (08:35)
[2020-05-06] MEDS: Thiamine 100 MG TAB PO SCH (08:35)
[2020-05-06] MEDS: cefTRIAXone\\ROCEPHIN 2 GM in Sodium Chloride 0.9% 100 ML IVPB SCH (13:57)
--- NOTE | 2020-05-06 14:31 | PDOC.HOSPP ---
- Subjective Encounter Date: 05/06/20 Encounter Time: 11:00 Subjective: awakens, responds to few questions well, follows verbal stimuli has weak attention span is off restraints and staying calm - Objective Vital Signs & Weight: Vital Signs (12 hours) Temp Pulse Resp BP BP Pulse Ox 05/06/20 12:53 97.9 F 75 20 145/65 H 97 05/06/20 12:00 145/65 H 05/06/20 08:00 148/71 H 99 05/06/20 07:45 98.1 F 81 18 148/71 H 99 05/06/20 04:20 16 Weight Admit Weight 217 lb 2.485 oz Weight 172 lb 11.2 oz I&O: 05/05/20 05/06/20 05/07/20 06:59 06:59 06:59 Intake Total 1530 1650 Output Total 400 Balance 1530 1250 Result Diagrams: 05/03/20 05:02 05/03/20 05:02 Additional Labs: Accuchecks 05/06/20 05/06/20 05/05/20 12:21 05:24 19:26 POC Glucose 146 H 138 H 156 H 05/05/20 16:27 POC Glucose 164 H Hospitalist ROS - Medication Medications: Active Medications Generic Name Dose Route Start Last Admin Trade Name Greysonq PRN Reason Stop Dose Admin Escitalopram Oxalate 20 mg 04/25/20 09:00 05/06/20 08:34 Lexapro PO 20 mg DAILY HARPREET Administration Folic Acid 1 mg 04/24/20 09:00 05/06/20 08:35 Folvite PO 1 mg DAILY HARPREET Administration Insulin Glargine 10 units/ 0.1 mls @ 0 mls/hr 04/24/20 21:00 05/05/20 22:04 Miscellaneous Medication SC 0.1 mls HS HARPREET Administration Sodium Chloride 1,000 mls @ 50 mls/hr 05/03/20 13:15 05/06/20 05:33 1/2 Normal Saline IV 1,000 mls .Q20H HARPREET Administration Ceftriaxone Sodium 2 gm/ 100 mls @ 200 mls/hr 05/06/20 12:00 05/06/20 13:57 Sodium Chloride IVPB 100 mls 1200 HARPREET Administration Insulin Human Lispro 0 units 04/24/20 01:54 07/20/20 10:38 Humalog SC 2 unit .MODERATE SLIDING SC PRN Administration Moderate Correctional Scale Lactulose 20 gm 04/27/20 21:00 05/06/20 08:35 Lactulose PO 20 gm BID HARPREET Administration Lorazepam 1 mg 04/28/20 04:43 05/05/20 22:05 Ativan SLOW IVP 1 mg Q6H PRN Administration AGITATION/ANXIETY Potassium Chloride 20 meq 05/01/20 08:00 05/06/20 08:34 K-Dur PO 20 meq QAM-WM HARPREET Administration Sodium Chloride 10 ml 04/24/20 02:11 05/05/20 08:32 Flush - Normal Saline IVF 10 ml PRN PRN Administration Saline Flush Thiamine HCl 100 mg 04/24/20 09:00 05/06/20 08:35 Thiamine PO 100 mg DAILY HARPREET Administration - Exam General Appearance: awake alert Eye: PERRL, scleral icterus ENT: no oropharyngeal lesions, dry oral mucosa Neck: supple, no JVD Heart: RRR, no murmur Respiratory: no wheezes, no rales Gastrointestinal: soft, non-tender, non-distended, normal bowel sounds Extremities: no cyanosis, no edema Neurological: cranial nerve grossly intact, no focal deficits Hosp A/P (1) Coagulopathy Status: Acute (2) Acute metabolic encephalopathy Code(s): G93.41 - METABOLIC ENCEPHALOPATHY Status: Acute (3) Moderate protein malnutrition Code(s): E44.0 - MODERATE PROTEIN-CALORIE MALNUTRITION Status: Chronic (4) Alcohol abuse Code(s): F10.10 - ALCOHOL ABUSE, UNCOMPLICATED Status: Chronic (5) Cirrhosis, alcoholic Code(s): K70.30 - ALCOHOLIC CIRRHOSIS OF LIVER WITHOUT ASCITES Status: Chronic Qualifiers: Ascites presence: without ascites Qualified Code(s): K70.30 - Alcoholic cirrhosis of liver without ascites (6) Hyponatremia Code(s): E87.1 - HYPO-OSMOLALITY AND HYPONATREMIA Status: Resolved (7) Rhabdomyolysis Code(s): M62.82 - RHABDOMYOLYSIS Status: Resolved Qualifiers: Rhabdomyolysis type: traumatic (8) Anxiety and depression Code(s): F41.9 - ANXIETY DISORDER, UNSPECIFIED; F32.9 - MAJOR DEPRESSIVE DISORDER, SINGLE EPISODE, UNSPECIFIED Status: Chronic (9) DM type 2 (diabetes mellitus, type 2) Status: Chronic Qualifiers: Diabetes mellitus residential insulin use: without intermediate card tender use Diabetes mellitus complication status: without complication Qualified Code(s): E11.9 - Type 2 diabetes mellitus without complications (10) Hypertension Code(s): I10 - ESSENTIAL (PRIMARY) HYPERTENSION Status: Chronic Qualifiers: Hypertension type: essential hypertension Qualified Code(s): I10 - Essential (primary) hypertension (11) Microcytic anemia Code(s): D50.9 - IRON DEFICIENCY ANEMIA, UNSPECIFIED Status: Chronic (12) Wernicke encephalopathy Code(s): E51.2 - WERNICKE'S ENCEPHALOPATHY Status: Acute - Plan has MRI findings s/o Wernicke's encephalopathy. encourage po intake, has poor intake, may drink soup if likes it. has multiple echymosis and petechiae is on ceftriaxone, lactulose, thiamine, folic acid, lexapro has elevated t.bili around 10 and ast around 300 which is trending down, likely has alc hepatitis, previous ammonia levels were normal poor prognosis if needed may use mittens echo shows no obvious thrombus d/w sister extensively 05/03, 05/04 & 05/06. dc plan to swing/snf, is medically stable for dc PT to mobilize as tolerated
[2020-05-06] MEDS: Insulin Glargine 10 UNITS in Pre-Filled Syringe 1 EACH SC SCH (21:29)
[2020-05-07 08:46] LABS: Hemoglobin 9.7 g/dL (14.0-18.0); Mean Corpuscular HGB CONC 29.9 g/dL (32.0-36.0); Mean Corpuscular Hemoglobin 24.6 pg (27.0-31.0); Mean Corpuscular Volume 82.1 fL (78.0-98.0); Mean Platelet Volume 6.6 fL (7.4-10.4); Platelet Count 43 thou/uL (130-400); RBC Distribution Width 23.2 % (11.5-14.5); Red Blood Cell (RBC) Count 3.96 mill/uL (4.70-6.10)
[2020-05-07 09:06] LABS: ALT (SGPT) 27 U/L (8-55); AST (SGOT) 49 U/L (5-34); Albumin 2.1 g/dL (3.5-5.0); Alkaline Phosphatase 103 U/L (40-110); Anion Gap 9 mmol/L (10-20); BUN (Urea Nitrogen) 6 mg/dL (8.9-20.6); Bilirubin, Total 8.8 mg/dL (0.2-1.2); Calc. Creatinine Clearance 194 mL/min (70-130); Calcium 7.9 mg/dL (7.8-10.44); Carbon Dioxide 22 mmol/L (22-29); Chloride 104 mmol/L (98-107); Estimated GFR-MDRD Greater than 90; Globulin 4.6 g/dL (2.4-3.5); Glucose 159 mg/dL (70-105); Potassium 3.5 mmol/L (3.5-5.1); Protein, Total 6.7 g/dL (6.0-8.3); Sodium 131 mmol/L (136-145)
[2020-05-07] MEDS: Escitalopram Oxalate 20 mg Tablet PO SCH (09:07)
[2020-05-07] MEDS: Thiamine 100 MG TAB PO SCH (09:07)
[2020-05-07] MEDS: Potassium Chloride 20 MEQ TAB PO SCH (09:07)
[2020-05-07] MEDS: Folic Acid 1 MG TAB PO SCH (09:07)
[2020-05-07 09:25] LABS: Band 2 % (5-11); Eosinophils 1 % (0-10); Hypochromia SLIGHT = 6-15 cells (100X) (0-5/hpf); Lymphocytes 31 % (21-51); MDiff Complete? YES; Monocytes 16 % (0-10); Neutrophil 49 % (42-75); Platelet Morphology Comment Appears Decreased; Polychromasia SLIGHT = 2-3 cells (100X) (0-2/hpf); Target Cells SLIGHT = 2-5 cells (100X) (0-1/hpf)
[2020-05-07] MEDS: cefTRIAXone\\ROCEPHIN 2 GM in Sodium Chloride 0.9% 100 ML IVPB SCH (11:34)
--- NOTE | 2020-05-07 12:30 | PDOC.HOSPP ---
- Subjective Encounter Date: 05/07/20 Subjective: NEUROLOGY PROGRESS NOTE Patient alert, awake and oriented to person, place and month. He followed commands appropriately. - Objective Vital Signs & Weight: Vital Signs (12 hours) Temp Pulse Resp BP Pulse Ox 05/07/20 08:00 97 05/07/20 07:19 99.1 F 79 20 133/66 97 Weight Admit Weight 217 lb 2.485 oz Weight 194 lb 14.218 oz I&O: 05/06/20 05/07/20 05/08/20 06:59 06:59 06:59 Intake Total 1650 1800 Output Total 400 Balance 1250 1800 Result Diagrams: 05/07/20 08:09 05/07/20 08:09 Additional Labs: Accuchecks 05/07/20 05/07/20 05/06/20 11:09 04:53 19:46 POC Glucose 200 H 156 H 219 H 05/06/20 05/06/20 16:35 12:21 POC Glucose 225 H 146 H Radiology Reviewed by me: Yes EKG Reviewed by me: Yes Hospitalist ROS - Review of Systems Constitutional: denies: fever, chills, sweats, weakness, malaise, other Eyes: denies: pain, vision change, conjunctivae inflammation, eyelid inflammation, redness, other ENT: denies: ear pain, ear discharge, nose pain, nose discharge, nose congestion , mouth pain, mouth swelling, throat pain, throat swelling, other Respiratory: reports: cough, shortness of breath Cardiovascular: denies: chest pain, palpitations, orthopnea, paroxysmal noc. dyspnea, edema, light headedness, other Gastrointestinal: denies: nausea, vomiting, abdominal pain, diarrhea, constipation, melena, hematochezia, other Genitourinary: denies: dysuria, frequency, incontinence, hematuria, retention, other Musculoskeletal: denies: neck pain, shoulder pain, arm pain, back pain, hand pain, leg pain, foot pain, other Skin: denies: rash, lesions, robert, bruising, other Neurological: reports: incoordination, confusion. denies: weakness, numbness, change in speech, seizures, other - Medication Medications: Active Medications Generic Name Dose Route Start Last Admin Trade Name Freq PRN Reason Stop Dose Admin Escitalopram Oxalate 20 mg 04/25/20 09:00 05/07/20 09:07 Lexapro PO 20 mg DAILY HARPREET Administration Folic Acid 1 mg 04/24/20 09:00 05/07/20 09:07 Folvite PO 1 mg DAILY HARPREET Administration Insulin Glargine 10 units/ 0.1 mls @ 0 mls/hr 04/24/20 21:00 05/06/20 21:29 Miscellaneous Medication SC 0.1 mls HS HARPREET Administration Sodium Chloride 1,000 mls @ 50 mls/hr 05/03/20 13:15 05/06/20 23:49 1/2 Normal Saline IV Not Given .Q20H HARPREET Ceftriaxone Sodium 2 gm/ 100 mls @ 200 mls/hr 05/06/20 12:00 05/07/20 11:34 Sodium Chloride IVPB 100 mls 1200 HARPREET Administration Insulin Human Lispro 0 units 04/24/20 01:54 04/29/20 10:38 Humalog SC 2 unit .MODERATE SLIDING SC PRN Administration Moderate Correctional Scale Lactulose 20 gm 04/27/20 21:00 05/07/20 09:07 Lactulose PO 20 gm BID HARPREET Administration Lorazepam 1 mg 04/28/20 04:43 05/05/20 22:05 Ativan SLOW IVP 1 mg Q6H PRN Administration AGITATION/ANXIETY Potassium Chloride 20 meq 05/01/20 08:00 05/07/20 09:07 K-Dur PO 20 meq QAM-WM HARPREET Administration Sodium Chloride 10 ml 04/24/20 02:11 05/05/20 08:32 Flush - Normal Saline IVF 10 ml PRN PRN Administration Saline Flush Thiamine HCl 100 mg 04/24/20 09:00 05/07/20 09:07 Thiamine PO 100 mg DAILY HARPREET Administration - Exam General Appearance: awake alert Eye: PERRL ENT: normocephalic atraumatic Neck: supple Heart: RRR Respiratory: CTAB Gastrointestinal: soft Extremities: no cyanosis Skin: normal turgor Neurological: no weakness, no focal deficits, no new deficit Musculoskeletal: normal tone, normal strength, no muscle wasting Psychiatric: oriented to person, oriented to place, oriented to time, somnolent Hosp A/P (1) Acute metabolic encephalopathy Code(s): G93.41 - METABOLIC ENCEPHALOPATHY Status: Acute (2) Bacteremia due to Gram-positive bacteria Code(s): R78.81 - BACTEREMIA Status: Acute (3) Elevated troponin Code(s): R79.89 - OTHER SPECIFIED ABNORMAL FINDINGS OF BLOOD CHEMISTRY Status : Acute (4) Fever Code(s): R50.9 - FEVER, UNSPECIFIED Status: Acute (5) Nondisplaced right frontal skull fracture Code(s): S02.0XXA - FRACTURE OF VAULT OF SKULL, INIT ENCNTR FOR CLOSED FRACTURE Status: Acute - Plan PT/OT, speech therapy, DVT proph w/SCDs 49 year old consulted for altered mental status. Altered mental status seem to be multifactorial due to infectious and metabolic etiology. Wernicke is also in the differential with history of alcohol abuse. Patient showed interval improvement and more alert and following commands today. Repeat EEG showed interval improvement in encephalopathy and npo evidence of seizure activity. MRI brain reviewed. Limited study due to motion artifact. Subtle signal seen in thalami, periventricular white matter and mamillary bodies which is seen with Wernicke's encephalopathy. Neurochecks every 4 hours. Continue home medications. Continue medical management per primary team. PT/OT/Speech when stable.
--- NOTE | 2020-05-07 12:56 | PDOC.HOSPP ---
- Subjective Encounter Date: 05/07/20 Encounter Time: 09:00 Subjective: awake, responds to questions not in distress - Objective Vital Signs & Weight: Vital Signs (12 hours) Temp Pulse Resp BP Pulse Ox 05/07/20 08:00 97 05/07/20 07:19 99.1 F 79 20 133/66 97 Weight Admit Weight 217 lb 2.485 oz Weight 194 lb 14.218 oz I&O: 05/06/20 05/07/20 05/08/20 06:59 06:59 06:59 Intake Total 1650 1800 Output Total 400 Balance 1250 1800 Result Diagrams: 05/07/20 08:09 05/07/20 08:09 Additional Labs: Accuchecks 05/07/20 05/07/20 05/06/20 11:09 04:53 19:46 POC Glucose 200 H 156 H 219 H 05/06/20 16:35 POC Glucose 225 H Hospitalist ROS - Medication Medications: Active Medications Generic Name Dose Route Start Last Admin Trade Name Freq PRN Reason Stop Dose Admin Escitalopram Oxalate 20 mg 04/25/20 09:00 05/07/20 09:07 Lexapro PO 20 mg DAILY HARPREET Administration Folic Acid 1 mg 04/24/20 09:00 05/07/20 09:07 Folvite PO 1 mg DAILY HARPREET Administration Insulin Glargine 10 units/ 0.1 mls @ 0 mls/hr 04/24/20 21:00 05/06/20 21:29 Miscellaneous Medication SC 0.1 mls HS HARPREET Administration Sodium Chloride 1,000 mls @ 50 mls/hr 05/03/20 13:15 05/06/20 23:49 1/2 Normal Saline IV Not Given .Q20H HARPREET Ceftriaxone Sodium 2 gm/ 100 mls @ 200 mls/hr 05/06/20 12:00 05/07/20 11:34 Sodium Chloride IVPB 100 mls 1200 HARPREET Administration Insulin Human Lispro 0 units 04/24/20 01:54 04/29/20 10:38 Humalog SC 2 unit .MODERATE SLIDING SC PRN Administration Moderate Correctional Scale Lactulose 20 gm 04/27/20 21:00 05/07/20 09:07 Lactulose PO 20 gm BID HARPREET Administration Lorazepam 1 mg 04/28/20 04:43 05/05/20 22:05 Ativan SLOW IVP 1 mg Q6H PRN Administration AGITATION/ANXIETY Potassium Chloride 20 meq 05/01/20 08:00 05/07/20 09:07 K-Dur PO 20 meq QAM-WM HARPREET Administration Sodium Chloride 10 ml 04/24/20 02:11 05/05/20 08:32 Flush - Normal Saline IVF 10 ml PRN PRN Administration Saline Flush Thiamine HCl 100 mg 04/24/20 09:00 05/07/20 09:07 Thiamine PO 100 mg DAILY HARPREET Administration - Exam General Appearance: awake alert Eye: PERRL, scleral icterus ENT: no oropharyngeal lesions, dry oral mucosa Neck: supple, no JVD Heart: RRR, no murmur Respiratory: no wheezes, no rales Gastrointestinal: soft, non-tender, non-distended, normal bowel sounds Extremities: no cyanosis, no edema Neurological: cranial nerve grossly intact, no focal deficits Hosp A/P (1) Coagulopathy Status: Acute (2) Acute metabolic encephalopathy Code(s): G93.41 - METABOLIC ENCEPHALOPATHY Status: Acute (3) Moderate protein malnutrition Code(s): E44.0 - MODERATE PROTEIN-CALORIE MALNUTRITION Status: Chronic (4) Alcohol abuse Code(s): F10.10 - ALCOHOL ABUSE, UNCOMPLICATED Status: Chronic (5) Cirrhosis, alcoholic Code(s): K70.30 - ALCOHOLIC CIRRHOSIS OF LIVER WITHOUT ASCITES Status: Chronic Qualifiers: Ascites presence: without ascites Qualified Code(s): K70.30 - Alcoholic cirrhosis of liver without ascites (6) Hyponatremia Code(s): E87.1 - HYPO-OSMOLALITY AND HYPONATREMIA Status: Resolved (7) Rhabdomyolysis Code(s): M62.82 - RHABDOMYOLYSIS Status: Resolved Qualifiers: Rhabdomyolysis type: traumatic (8) Anxiety and depression Code(s): F41.9 - ANXIETY DISORDER, UNSPECIFIED; F32.9 - MAJOR DEPRESSIVE DISORDER, SINGLE EPISODE, UNSPECIFIED Status: Chronic (9) DM type 2 (diabetes mellitus, type 2) Status: Chronic Qualifiers: Diabetes mellitus 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 inspector insulin use: without detention use Diabetes mellitus complication status: without complication Qualified Code(s): E11.9 - Type 2 diabetes mellitus without complications (10) Hypertension Code(s): I10 - ESSENTIAL (PRIMARY) HYPERTENSION Status: Chronic Qualifiers: Hypertension type: essential hypertension Qualified Code(s): I10 - Essential (primary) hypertension (11) Microcytic anemia Code(s): D50.9 - IRON DEFICIENCY ANEMIA, UNSPECIFIED Status: Chronic (12) Wernicke encephalopathy Code(s): E51.2 - WERNICKE'S ENCEPHALOPATHY Status: Acute - Plan has MRI findings s/o Wernicke's encephalopathy. encourage po intake, has poor intake, may drink soup if likes it. has multiple echymosis and petechiae is on ceftriaxone, lactulose, thiamine, folic acid, lexapro has elevated t.bili around 9 and ast is trending down, likely has alc hepatitis , previous ammonia levels were normal echo shows no obvious thrombus d/w sister extensively 05/03, 05/04 & 05/06. dc plan to swing/snf, is medically stable for dc PT to mobilize as tolerated, has ambulated around 70ft now.
--- NOTE | 2020-05-07 13:26 | EEG ---
DATE OF SERVICE: 05/07/2020 ATTENDING PHYSICIAN: Angelika Ugarte MD This EEG was performed using 24-channel [employer] video digital EEG machine with 24-disk electrodes. This was an extended 2 hours 5 minutes of inpatient video EEG recording. Digital analysis of the EEG was done for spike and seizure detection, which revealed no abnormalities. BACKGROUND: The posterior background rhythm was not observed. HYPERVENTILATION: Not performed. PHOTIC STIMULATION: Not performed. SLEEP: Drowsiness and sleep are observed during the entire recording. EEG DIAGNOSIS: Absence of posterior background rhythm. CLINICAL INTERPRETATION: This EEG is consistent with mild generalized nonspecific cerebral dysfunction. No ictal or interictal epileptiform abnormalities seen during the recording. Job ID: [id number]
[2020-05-07] MEDS: Sodium Chloride 0.45% 1,000 ML IV SCH (17:14)
[2020-05-07] MEDS ORDERED: Ibuprofen 200 MG TAB PO STA (17:46)
[2020-05-07] MEDS: Insulin Glargine 10 UNITS in Pre-Filled Syringe 1 EACH SC SCH (22:59)
[2020-05-08] MEDS: Folic Acid 1 MG TAB PO SCH (08:21)
[2020-05-08] MEDS: Potassium Chloride 20 MEQ TAB PO SCH (08:21)
[2020-05-08] MEDS: Escitalopram Oxalate 20 mg Tablet PO SCH (08:21)
[2020-05-08] MEDS: Thiamine 100 MG TAB PO SCH (08:22)
[2020-05-08] MEDS: Multivit, Chewable SF 1 TAB PO SCH (09:33)
[2020-05-08] MEDS: cefTRIAXone\\ROCEPHIN 2 GM in Sodium Chloride 0.9% 100 ML IVPB SCH (11:35)
[2020-05-08] MEDS: HumaLOG 300 UNITS/3 ML VIAL SC PRN ×2 (11:59→17:08)
[2020-05-08] MEDS: Sodium Chloride 0.45% 1,000 ML IV SCH (12:03)
--- NOTE | 2020-05-08 14:09 | PDOC.HOSPP ---
- Subjective Encounter Date: 05/08/20 Encounter Time: 11:20 Subjective: awake, responds well to verbal stimuli is oriented well this am says he is beginning to eat well - Objective Vital Signs & Weight: Vital Signs (12 hours) Temp Pulse Resp BP Pulse Ox 05/08/20 11:20 98.3 F 83 18 127/57 L 97 05/08/20 07:42 98.2 F 82 20 134/62 99 Weight Admit Weight 217 lb 2.485 oz Weight 194 lb 7.163 oz I&O: 05/07/20 05/08/20 05/09/20 06:59 06:59 06:59 Intake Total 1800 1950 460 Balance 1800 1950 460 Result Diagrams: 05/07/20 08:09 05/07/20 08:09 Additional Labs: Accuchecks 05/08/20 05/08/20 05/07/20 11:29 04:47 19:32 POC Glucose 189 H 160 H 247 H 05/07/20 15:44 POC Glucose 116 H Hospitalist ROS - Medication Medications: Active Medications Generic Name Dose Route Start Last Admin Trade Name Freq PRN Reason Stop Dose Admin Escitalopram Oxalate 20 mg 04/25/20 09:00 05/08/20 08:21 Lexapro PO 20 mg DAILY HARPREET Administration Folic Acid 1 mg 04/24/20 09:00 05/08/20 08:21 Folvite PO 1 mg DAILY HARPREET Administration Insulin Glargine 10 units/ 0.1 mls @ 0 mls/hr 04/24/20 21:00 05/07/20 22:59 Miscellaneous Medication SC 0.1 mls HS HARPREET Administration Sodium Chloride 1,000 mls @ 50 mls/hr 05/03/20 13:15 05/08/20 12:03 1/2 Normal Saline IV 1,000 mls .Q20H HARPREET Administration Ceftriaxone Sodium 2 gm/ 100 mls @ 200 mls/hr 05/06/20 12:00 05/08/20 11:35 Sodium Chloride IVPB 100 mls 1200 HARPREET Administration Insulin Human Lispro 0 units 04/24/20 01:54 05/08/20 11:59 Humalog SC 2 unit .MODERATE SLIDING SC PRN Administration Moderate Correctional Scale Lactulose 20 gm 04/27/20 21:00 05/08/20 08:21 Lactulose PO 20 gm BID HARPREET Administration Multivitamins 1 tab 07/29/20 09:00 05/08/20 09:33 Multivit, Chewable Sf PO 1 tab DAILY HARPREET Administration Potassium Chloride 20 meq 05/01/20 08:00 05/08/20 08:21 K-Dur PO 20 meq QAM-WM HARPREET Administration Sodium Chloride 10 ml 04/24/20 02:11 05/05/20 08:32 Flush - Normal Saline IVF 10 ml PRN PRN Administration Saline Flush Thiamine HCl 100 mg 04/24/20 09:00 05/08/20 08:22 Thiamine PO 100 mg DAILY HARPREET Administration - Exam General Appearance: awake alert Eye: PERRL, scleral icterus ENT: no oropharyngeal lesions, dry oral mucosa Neck: supple, no JVD Heart: RRR, no murmur Respiratory: no wheezes, no rales Gastrointestinal: soft, non-tender, non-distended, normal bowel sounds Extremities: no cyanosis, no edema Neurological: cranial nerve grossly intact, no focal deficits Psychiatric: A&O x 3 Hosp A/P (1) Coagulopathy Status: Acute (2) Acute metabolic encephalopathy Code(s): G93.41 - METABOLIC ENCEPHALOPATHY Status: Resolved (3) Moderate protein malnutrition Code(s): E44.0 - MODERATE PROTEIN-CALORIE MALNUTRITION Status: Chronic (4) Alcohol abuse Code(s): F10.10 - ALCOHOL ABUSE, UNCOMPLICATED Status: Chronic (5) Cirrhosis, alcoholic Code(s): K70.30 - ALCOHOLIC CIRRHOSIS OF LIVER WITHOUT ASCITES Status: Chronic Qualifiers: Ascites presence: without ascites Qualified Code(s): K70.30 - Alcoholic cirrhosis of liver without ascites (6) Hyponatremia Code(s): E87.1 - HYPO-OSMOLALITY AND HYPONATREMIA Status: Resolved (7) Rhabdomyolysis Code(s): M62.82 - RHABDOMYOLYSIS Status: Resolved Qualifiers: Rhabdomyolysis type: traumatic (8) Anxiety and depression Code(s): F41.9 - ANXIETY DISORDER, UNSPECIFIED; F32.9 - MAJOR DEPRESSIVE DISORDER, SINGLE EPISODE, UNSPECIFIED Status: Chronic (9) DM type 2 (diabetes mellitus, type 2) Status: Chronic Qualifiers: Diabetes mellitus senior living insulin use: without parts counterman use Diabetes mellitus complication status: without complication Qualified Code(s): E11.9 - Type 2 diabetes mellitus without complications (10) Hypertension Code(s): I10 - ESSENTIAL (PRIMARY) HYPERTENSION Status: Chronic Qualifiers: Hypertension type: essential hypertension Qualified Code(s): I10 - Essential (primary) hypertension (11) Microcytic anemia Code(s): D50.9 - IRON DEFICIENCY ANEMIA, UNSPECIFIED Status: Chronic (12) Wernicke encephalopathy Code(s): E51.2 - WERNICKE'S ENCEPHALOPATHY Status: Acute - Plan has MRI findings s/o Wernicke's encephalopathy. encourage po intake, is cognitively improving well has ambulated around 80ft now has multiple echymosis and petechiae which is stable is on ceftriaxone, lactulose, thiamine, folic acid, lexapro has elevated t.bili around 9 and ast is trending down, likely has alc hepatitis , previous ammonia levels were normal echo shows no obvious thrombus d/w sister extensively 05/03, 05/04 & 05/06. dc plan to swing/snf, is medically stable for dc PT to mobilize as tolerated
--- NOTE | 2020-05-08 17:58 | PRG ---
DATE OF SERVICE: 05/08/2020 SUBJECTIVE: Mr. Crowley has recovered his mental state. He is oriented, follows commands. He is having pain in his tongue, mostly in the anterior oral cavity, which makes it hard for him to swallow or chew. No respiratory symptoms or abdominal pain. No genitourinary symptoms. He is voiding in the urinal. OBJECTIVE: VITAL SIGNS: He has been afebrile, BP 130/63, pulse 79, respirations 18, and O2 saturation 97. GENERAL: He appears a little shaky, but better than previously. He establishes eye contact, follows commands. HEENT: His oral cavity shows the glossitis. NECK: Supple. LUNGS: Symmetric, clear breath sounds. HEART: S1 and S2. Regular rate. ABDOMEN: Soft, not distended. EXTREMITIES: Moves extremities equally. LABORATORY DATA: White cell count 4.0, hemoglobin 9.7, platelets 43,000, and 49% neutrophils. Glucose 176, sodium 131, creatinine 0.57, and AST 49. He is currently on IV Rocephin. ASSESSMENT AND DISCUSSION: 1. Alcoholism. 2. Encephalopathy, possible Wernicke. 3. Methicillin-resistant Staphylococcus aureus bacteremia, treated to completion with resolution. 4. Group B strep bacteremia, probably from skin. 5. Now, he has glossitis. We will treat him for Mariel and for herpes simplex since the features are not specific for any of those 2 and those are the more likely scenario here. Job ID: [id number]
[2020-05-08] MEDS: Acetaminophen 325 MG TAB PO PRN (18:24)
[2020-05-08] MEDS: valACYclovir 500 MG TAB PO SCH (21:15)
[2020-05-08] MEDS: Insulin Glargine 10 UNITS in Pre-Filled Syringe 1 EACH SC SCH (21:15)
[2020-05-09] MEDS: Acetaminophen 325 MG TAB PO PRN ×2 (01:08→21:42)
[2020-05-09] MEDS: traMADol HCl 50 MG TAB PO PRN ×2 (05:11→21:41)
[2020-05-09] MEDS: HumaLOG 300 UNITS/3 ML VIAL SC PRN ×3 (06:05→17:29)
[2020-05-09] MEDS: Fluconazole In NaCl,Iso-Osm 100 MG in Admixture Fee 1 EACH IVPB SCH (08:50)
[2020-05-09] MEDS: Potassium Chloride 20 MEQ TAB PO SCH (08:53)
[2020-05-09] MEDS: valACYclovir 500 MG TAB PO SCH (08:53)
[2020-05-09] MEDS: Multivit, Chewable SF 1 TAB PO SCH (08:54)
[2020-05-09] MEDS: Escitalopram Oxalate 20 mg Tablet PO SCH (08:54)
[2020-05-09] MEDS: Folic Acid 1 MG TAB PO SCH (08:54)
[2020-05-09] MEDS: Thiamine 100 MG TAB PO SCH (08:54)
[2020-05-09] MEDS: Ascorbic Acid 500 mg Chewable Tablet PO SCH (08:54)
[2020-05-09] MEDS: cefTRIAXone\\ROCEPHIN 2 GM in Sodium Chloride 0.9% 100 ML IVPB SCH (11:57)
--- NOTE | 2020-05-09 12:52 | PDOC.HOSPP ---
- Subjective Encounter Date: 05/09/20 Encounter Time: 08:30 Subjective: Pt was sleeping upon entering the room but was easy to arouse. He complained of back and neck pain, as well as tongue burning with certain food groups. - Objective Vital Signs & Weight: Vital Signs (12 hours) Temp Pulse Resp BP Pulse Ox 05/09/20 08:00 95 05/09/20 07:58 98 F 83 16 115/52 L 95 Weight Admit Weight 98.5 kg Weight 83.506 kg I&O: 05/08/20 05/09/20 05/10/20 06:59 06:59 06:59 Intake Total 1950 3830 Output Total 1201 Balance 1950 2629 Result Diagrams: 05/07/20 08:09 05/07/20 08:09 Additional Labs: Accuchecks 05/09/20 05/09/20 05/08/20 10:33 06:10 19:58 POC Glucose 269 H 229 H 198 H 05/08/20 16:34 POC Glucose 176 H Hospitalist ROS - Medication Medications: Active Medications Generic Name Dose Route Start Last Admin Trade Name Freq PRN Reason Stop Dose Admin Acetaminophen 650 mg 05/08/20 17:29 05/09/20 01:08 Tylenol PO 650 mg Q6H PRN Administration pain or fever Ascorbic Acid 1,000 mg 05/09/20 09:00 05/09/20 08:54 Vitamin C PO 1,000 mg DAILY HARPREET Administration Escitalopram Oxalate 20 mg 04/25/20 09:00 05/09/20 08:54 Lexapro PO 20 mg DAILY HARPREET Administration Folic Acid 1 mg 04/24/20 09:00 05/09/20 08:54 Folvite PO 1 mg DAILY HARPREET Administration Insulin Glargine 10 units/ 0.1 mls @ 0 mls/hr 04/24/20 21:00 05/08/20 21:15 Miscellaneous Medication SC 0.1 mls HS HARPREET Administration Ceftriaxone Sodium 2 gm/ 100 mls @ 200 mls/hr 05/06/20 12:00 05/09/20 11:57 Sodium Chloride IVPB 100 mls 1200 HARPREET Administration Fluconazole/Sodium Chloride 50 mls @ 100 mls/hr 05/09/20 09:00 05/09/20 08:50 100 mg/ Miscellaneous IVPB 50 mls Medication DAILY HARPREET Administration Insulin Human Lispro 0 units 04/24/20 01:54 05/09/20 11:59 Humalog SC 6 unit .MODERATE SLIDING SC PRN Administration Moderate Correctional Scale Lactulose 20 gm 04/27/20 21:00 05/09/20 09:01 Lactulose PO Not Given BID HARPREET Multivitamins 1 tab 05/08/20 09:00 05/09/20 08:54 Multivit, Chewable Sf PO 1 tab DAILY HARPREET Administration Potassium Chloride 20 meq 05/01/20 08:00 05/09/20 08:53 K-Dur PO 20 meq QAM-WM HARPREET Administration Sodium Chloride 10 ml 04/24/20 02:11 05/05/20 08:32 Flush - Normal Saline IVF 10 ml PRN PRN Administration Saline Flush Thiamine HCl 100 mg 04/24/20 09:00 05/09/20 08:54 Thiamine PO 100 mg DAILY HARPREET Administration Tramadol HCl 50 mg 05/09/20 04:55 05/09/20 05:11 Ultram PO 50 mg Q4H PRN Administration Moderate Pain (4-6) - Exam General Appearance: NAD, awake alert Eye: PERRL, scleral icterus ENT: normocephalic atraumatic Neck: supple, symmetric Heart: RRR, no murmur Respiratory: CTAB, no wheezes Gastrointestinal: soft, non-tender, no palpable masses Extremities: no cyanosis Neurological - other findings: Positive Brudzinski's sign, Negative Kernig Psychiatric: A&O x 3 Hosp A/P (1) Bacteremia due to Gram-positive bacteria Code(s): R78.81 - BACTEREMIA Status: Acute (2) Coagulopathy Status: Acute (3) Wernicke encephalopathy Code(s): E51.2 - WERNICKE'S ENCEPHALOPATHY Status: Acute (4) Acute metabolic encephalopathy Code(s): G93.41 - METABOLIC ENCEPHALOPATHY Status: Resolved (5) Abnormal LFTs Code(s): R79.89 - OTHER SPECIFIED ABNORMAL FINDINGS OF BLOOD CHEMISTRY Status : Acute (6) Alcohol abuse Code(s): F10.10 - ALCOHOL ABUSE, UNCOMPLICATED Status: Chronic (7) Cirrhosis, alcoholic Code(s): K70.30 - ALCOHOLIC CIRRHOSIS OF LIVER WITHOUT ASCITES Status: Chronic Qualifiers: Ascites presence: without ascites Qualified Code(s): K70.30 - Alcoholic cirrhosis of liver without ascites (8) DM type 2 (diabetes mellitus, type 2) Status: Chronic Qualifiers: Diabetes mellitus care home insulin use: without superintendent marine oil terminal use Diabetes mellitus complication status: without complication Qualified Code(s): E11.9 - Type 2 diabetes mellitus without complications (9) Hypertension Code(s): I10 - ESSENTIAL (PRIMARY) HYPERTENSION Status: Chronic Qualifiers: Hypertension type: essential hypertension Qualified Code(s): I10 - Essential (primary) hypertension (10) Microcytic anemia Code(s): D50.9 - IRON DEFICIENCY ANEMIA, UNSPECIFIED Status: Chronic - Plan Continue to ambulate and hope to D/C tomorrow. Continue all meds.
[2020-05-09 12:57] VITALS: BMI 24.3
--- NOTE | 2020-05-09 12:58 | PDOC.HOSPP ---
- Subjective Encounter Date: 05/09/20 Encounter Time: 08:10 Subjective: awake, oriented well has tongue pain and burning in oral cavity, is able to eat - Objective Vital Signs & Weight: Vital Signs (12 hours) Temp Pulse Resp BP Pulse Ox 05/09/20 08:00 95 05/09/20 07:58 98 F 83 16 115/52 L 95 Weight Admit Weight 217 lb 2.485 oz Weight 184 lb 1.6 oz I&O: 05/08/20 05/09/20 05/10/20 06:59 06:59 06:59 Intake Total 1950 3830 Output Total 1201 Balance 1950 2629 Result Diagrams: 05/07/20 08:09 05/07/20 08:09 Additional Labs: Accuchecks 05/09/20 05/09/20 05/08/20 10:33 06:10 19:58 POC Glucose 269 H 229 H 198 H 05/08/20 16:34 POC Glucose 176 H Hospitalist ROS - Medication Medications: Active Medications Generic Name Dose Route Start Last Admin Trade Name Freq PRN Reason Stop Dose Admin Acetaminophen 650 mg 05/08/20 17:29 05/09/20 01:08 Tylenol PO 650 mg Q6H PRN Administration pain or fever Ascorbic Acid 1,000 mg 05/09/20 09:00 05/09/20 08:54 Vitamin C PO 1,000 mg DAILY HARPREET Administration Escitalopram Oxalate 20 mg 04/25/20 09:00 05/09/20 08:54 Lexapro PO 20 mg DAILY HARPREET Administration Folic Acid 1 mg 04/24/20 09:00 05/09/20 08:54 Folvite PO 1 mg DAILY HARPREET Administration Insulin Glargine 10 units/ 0.1 mls @ 0 mls/hr 04/24/20 21:00 05/08/20 21:15 Miscellaneous Medication SC 0.1 mls HS HARPREET Administration Ceftriaxone Sodium 2 gm/ 100 mls @ 200 mls/hr 05/06/20 12:00 05/09/20 11:57 Sodium Chloride IVPB 100 mls 1200 HARPREET Administration Fluconazole/Sodium Chloride 50 mls @ 100 mls/hr 05/09/20 09:00 05/09/20 08:50 100 mg/ Miscellaneous IVPB 50 mls Medication DAILY HARPREET Administration Insulin Human Lispro 0 units 04/24/20 01:54 05/09/20 11:59 Humalog SC 6 unit .MODERATE SLIDING SC PRN Administration Moderate Correctional Scale Lactulose 20 gm 04/27/20 21:00 05/09/20 09:01 Lactulose PO Not Given BID HARPREET Multivitamins 1 tab 05/08/20 09:00 05/09/20 08:54 Multivit, Chewable Sf PO 1 tab DAILY HARPREET Administration Potassium Chloride 20 meq 05/01/20 08:00 05/09/20 08:53 K-Dur PO 20 meq QAM-WM HARPREET Administration Sodium Chloride 10 ml 04/24/20 02:11 05/05/20 08:32 Flush - Normal Saline IVF 10 ml PRN PRN Administration Saline Flush Thiamine HCl 100 mg 04/24/20 09:00 05/09/20 08:54 Thiamine PO 100 mg DAILY HARPREET Administration Tramadol HCl 50 mg 05/09/20 04:55 05/09/20 05:11 Ultram PO 50 mg Q4H PRN Administration Moderate Pain (4-6) - Exam General Appearance: awake alert Eye: PERRL, scleral icterus ENT: no oropharyngeal lesions, moist mucosa Neck: no JVD, no lymphadenopathy Heart: RRR, no murmur Respiratory: no wheezes, no rales Gastrointestinal: soft, non-tender, non-distended, normal bowel sounds Extremities: no cyanosis, no edema Neurological: cranial nerve grossly intact, no focal deficits Psychiatric: A&O x 3 Hosp A/P (1) Coagulopathy Status: Acute (2) Acute metabolic encephalopathy Code(s): G93.41 - METABOLIC ENCEPHALOPATHY Status: Resolved (3) Moderate protein malnutrition Code(s): E44.0 - MODERATE PROTEIN-CALORIE MALNUTRITION Status: Chronic (4) Alcohol abuse Code(s): F10.10 - ALCOHOL ABUSE, UNCOMPLICATED Status: Chronic (5) Cirrhosis, alcoholic Code(s): K70.30 - ALCOHOLIC CIRRHOSIS OF LIVER WITHOUT ASCITES Status: Chronic Qualifiers: Qualified Code(s): K70.30 - Alcoholic cirrhosis of liver without ascites (6) Hyponatremia Code(s): E87.1 - HYPO-OSMOLALITY AND HYPONATREMIA Status: Resolved (7) Rhabdomyolysis Code(s): M62.82 - RHABDOMYOLYSIS Status: Resolved (8) Anxiety and depression Code(s): F41.9 - ANXIETY DISORDER, UNSPECIFIED; F32.9 - MAJOR DEPRESSIVE DISORDER, SINGLE EPISODE, UNSPECIFIED Status: Chronic (9) DM type 2 (diabetes mellitus, type 2) Status: Chronic Qualifiers: Qualified Code(s): E11.9 - Type 2 diabetes mellitus without complications (10) Hypertension Code(s): I10 - ESSENTIAL (PRIMARY) HYPERTENSION Status: Chronic Qualifiers: Qualified Code(s): I10 - Essential (primary) hypertension (11) Microcytic anemia Code(s): D50.9 - IRON DEFICIENCY ANEMIA, UNSPECIFIED Status: Chronic (12) Wernicke encephalopathy Code(s): E51.2 - WERNICKE'S ENCEPHALOPATHY Status: Acute - Plan has MRI findings s/o Wernicke's encephalopathy. encourage po intake, is cognitively likely at baseline now has ambulated around 80ft now has multiple echymosis and petechiae which is stable is on ceftriaxone, lactulose, thiamine, folic acid, lexapro has elevated t.bili around 9 and ast is trending down, likely has alc hepatitis , previous ammonia levels were normal echo shows no obvious thrombus d/w sister extensively 05/03, 05/04 & 05/06. dc plan to swing/snf, is medically stable for dc PT to mobilize as tolerated
[2020-05-09] MEDS: Insulin Glargine 10 UNITS in Pre-Filled Syringe 1 EACH SC SCH (20:15)
[2020-05-09] MEDS ORDERED: Nystatin 500,000 UNITS/5 ML UDCUP PO SCH (21:00)
[2020-05-10] MEDS ORDERED: Acetaminophen 650 MG Suppository PR PRN (02:55)
[2020-05-10] MEDS ORDERED: Morphine 2 MG/ML VIAL SLOW IVP SCH (03:00)
[2020-05-10] MEDS: Aluminum & Magnesium Hydroxide 60 ML, diphenhydrAMINE 150 MG, Lidocaine 2% Viscous Solu... SSW PRN ×4 (03:37→17:20)
[2020-05-10] MEDS: Potassium Chloride 20 MEQ TAB PO SCH (07:57)
[2020-05-10] MEDS: Ascorbic Acid 500 mg Chewable Tablet PO SCH (07:57)
[2020-05-10] MEDS: Escitalopram Oxalate 20 mg Tablet PO SCH (07:57)
[2020-05-10] MEDS: Thiamine 100 MG TAB PO SCH (07:58)
[2020-05-10] MEDS: Multivit, Chewable SF 1 TAB PO SCH (07:58)
[2020-05-10] MEDS: Folic Acid 1 MG TAB PO SCH (07:58)
[2020-05-10] MEDS: traMADol HCl 50 MG TAB PO PRN ×2 (07:58→20:25)
[2020-05-10] MEDS: Fluconazole In NaCl,Iso-Osm 100 MG in Admixture Fee 1 EACH IVPB SCH (10:47)
[2020-05-10] MEDS: cefTRIAXone\\ROCEPHIN 2 GM in Sodium Chloride 0.9% 100 ML IVPB SCH (12:12)
[2020-05-10] MEDS: HumaLOG 300 UNITS/3 ML VIAL SC PRN (12:13)
--- NOTE | 2020-05-10 14:16 | PDOC.HOSPP ---
- Subjective Encounter Date: 05/10/20 Encounter Time: 12:00 Subjective: is fully oriented now still has oral/tongue ulcers is amb in room per patient - Objective Vital Signs & Weight: Vital Signs (12 hours) Temp Pulse Resp BP Pulse Ox 05/10/20 08:00 97 05/10/20 07:06 98.2 F 83 18 113/46 L 97 Weight Admit Weight 217 lb 2.485 oz Weight 184 lb 1.6 oz I&O: 05/09/20 05/10/20 05/11/20 06:59 06:59 06:59 Intake Total 3830 4280 Output Total 1201 900 Balance 2629 3380 Result Diagrams: 05/07/20 08:09 05/07/20 08:09 Additional Labs: Accuchecks 05/10/20 05/10/20 05/09/20 11:14 05:14 19:27 POC Glucose 239 H 164 H 179 H 05/09/20 16:46 POC Glucose 195 H Hospitalist ROS - Medication Medications: Active Medications Generic Name Dose Route Start Last Admin Trade Name Freq PRN Reason Stop Dose Admin Acetaminophen 650 mg 05/08/20 17:29 05/09/20 21:42 Tylenol PO 650 mg Q6H PRN Administration pain or fever Ascorbic Acid 1,000 mg 05/09/20 09:00 05/10/20 07:57 Vitamin C PO 1,000 mg DAILY HARPREET Administration Al Hydroxide/Mg Hydroxide 60 0 ml 05/10/20 02:52 05/10/20 12:12 ml/ Diphenhydramine HCl 150 mg SSW 10 ml / Lidocaine HCl 60 ml/ PRN PRN Administration Nystatin 6,000,000 units Mouth Irritation Escitalopram Oxalate 20 mg 04/25/20 09:00 05/10/20 07:57 Lexapro PO 20 mg DAILY HARPREET Administration Folic Acid 1 mg 04/24/20 09:00 05/10/20 07:58 Folvite PO 1 mg DAILY HARPREET Administration Insulin Glargine 10 units/ 0.1 mls @ 0 mls/hr 04/24/20 21:00 05/09/20 20:15 Miscellaneous Medication SC 0.1 mls HS HARPREET Administration Ceftriaxone Sodium 2 gm/ 100 mls @ 200 mls/hr 05/06/20 12:00 05/10/20 12:12 Sodium Chloride IVPB 100 mls 1200 HARPREET Administration Fluconazole/Sodium Chloride 50 mls @ 100 mls/hr 05/09/20 09:00 05/10/20 10:47 100 mg/ Miscellaneous IVPB 50 mls Medication DAILY HARPREET Administration Insulin Human Lispro 0 units 04/24/20 01:54 05/10/20 12:13 Humalog SC 4 unit .MODERATE SLIDING SC PRN Administration Moderate Correctional Scale Lactulose 20 gm 04/27/20 21:00 05/10/20 08:00 Lactulose PO Not Given BID HARPREET Multivitamins 1 tab 05/08/20 09:00 05/10/20 07:58 Multivit, Chewable Sf PO 1 tab DAILY HARPREET Administration Potassium Chloride 20 meq 05/01/20 08:00 05/10/20 07:57 K-Dur PO 20 meq QAM-WM HARPREET Administration Sodium Chloride 10 ml 04/24/20 02:11 05/05/20 08:32 Flush - Normal Saline IVF 10 ml PRN PRN Administration Saline Flush Thiamine HCl 100 mg 04/24/20 09:00 05/10/20 07:58 Thiamine PO 100 mg DAILY HARPREET Administration Tramadol HCl 50 mg 05/09/20 04:55 05/10/20 07:58 Ultram PO 50 mg Q4H PRN Administration Moderate Pain (4-6) - Exam General Appearance: awake alert Eye: PERRL, scleral icterus ENT: no oropharyngeal lesions, dry oral mucosa Neck: supple, no JVD Heart: RRR, no murmur Respiratory: no wheezes, no rales, rhonchi Gastrointestinal: soft, non-tender, non-distended, normal bowel sounds Extremities: no cyanosis, no edema Neurological: cranial nerve grossly intact, no focal deficits Psychiatric: normal affect, A&O x 3 Hosp A/P (1) Coagulopathy Status: Acute (2) Acute metabolic encephalopathy Code(s): G93.41 - METABOLIC ENCEPHALOPATHY Status: Resolved (3) Moderate protein malnutrition Code(s): E44.0 - MODERATE PROTEIN-CALORIE MALNUTRITION Status: Chronic (4) Alcohol abuse Code(s): F10.10 - ALCOHOL ABUSE, UNCOMPLICATED Status: Chronic (5) Cirrhosis, alcoholic Code(s): K70.30 - ALCOHOLIC CIRRHOSIS OF LIVER WITHOUT ASCITES Status: Chronic Qualifiers: Ascites presence: without ascites Qualified Code(s): K70.30 - Alcoholic cirrhosis of liver without ascites (6) Hyponatremia Code(s): E87.1 - HYPO-OSMOLALITY AND HYPONATREMIA Status: Resolved (7) Rhabdomyolysis Code(s): M62.82 - RHABDOMYOLYSIS Status: Resolved Qualifiers: Rhabdomyolysis type: traumatic (8) Anxiety and depression Code(s): F41.9 - ANXIETY DISORDER, UNSPECIFIED; F32.9 - MAJOR DEPRESSIVE DISORDER, SINGLE EPISODE, UNSPECIFIED Status: Chronic (9) DM type 2 (diabetes mellitus, type 2) Status: Chronic Qualifiers: Diabetes mellitus [employer] insulin use: without fci use Diabetes mellitus complication status: without complication Qualified Code(s): E11.9 - Type 2 diabetes mellitus without complications (10) Hypertension Code(s): I10 - ESSENTIAL (PRIMARY) HYPERTENSION Status: Chronic Qualifiers: Hypertension type: essential hypertension Qualified Code(s): I10 - Essential (primary) hypertension (11) Microcytic anemia Code(s): D50.9 - IRON DEFICIENCY ANEMIA, UNSPECIFIED Status: Chronic (12) Wernicke encephalopathy Code(s): E51.2 - WERNICKE'S ENCEPHALOPATHY Status: Acute - Plan has MRI findings s/o Wernicke's encephalopathy. encourage po intake, is cognitively at baseline now (made remarkable improvement in last 4 days now) has neck stiffness and headache ?meningitis, is improving (no LP due to caogulopathy) has ambulated around 80ft now has multiple echymosis and petechiae which is stable is on ceftriaxone, lactulose, thiamine, folic acid, lexapro has elevated t.bili around 9 and ast is trending down, likely has alc hepatitis , previous ammonia levels were normal echo shows no obvious thrombus d/w sister extensively 05/03, 05/04 & 05/06. dc plan to swing/snf, is medically stable for dc PT to mobilize as tolerated
--- NOTE | 2020-05-10 14:56 | PRG ---
DATE OF SERVICE: 05/10/2020 SUBJECTIVE: Looking much better, still with that stomatitis and glossitis, some improvement in that, but still quite painful to swallow. No dyspnea. No abdominal pain. No diarrhea. Voiding without difficulty. OBJECTIVE: VITAL SIGNS: T-max 99.4, blood pressure 113/46, pulse 83, respirations 18, and O2 saturation is 97. HEENT: Still pretty florid glossitis. His icterus is improving. NECK: Supple. LUNGS: Symmetric air entry. ABDOMEN: Soft, not distended or tender. EXTREMITIES: Moves extremities equally. LABORATORY DATA: White cell count is at 4, hemoglobin 9.7, platelets 43, 49% neutrophils, 2% bands. Creatinine 0.57, AST 49. ASSESSMENT/DISCUSSION: Alcoholism, encephalopathy with improvement, methicillin-resistant Staphylococcus aureus bacteremia, already treated and resolved. Group B strep bacteremia in treatment now and probably can be switched to oral Keflex. We will go and make the switch glossitis, probably multifactorial, nutritional plus possible superimposed Mariel/herpes on treatment, getting ready for discharge planning in my opinion. Job ID: [id number]
[2020-05-10] MEDS: Cephalexin 250 MG CAP PO SCH ×2 (17:20→20:20)
[2020-05-10] MEDS: Insulin Glargine 10 UNITS in Pre-Filled Syringe 1 EACH SC SCH (20:20)
[2020-05-10] MEDS: Acetaminophen 325 MG TAB PO PRN (20:25)
[2020-05-11] MEDS: Aluminum & Magnesium Hydroxide 60 ML, diphenhydrAMINE 150 MG, Lidocaine 2% Viscous Solu... SSW PRN ×4 (02:43→17:16)
[2020-05-11] MEDS: Cephalexin 250 MG CAP PO SCH ×4 (07:46→19:57)
[2020-05-11] MEDS: Potassium Chloride 20 MEQ TAB PO SCH (07:46)
[2020-05-11] MEDS: Ascorbic Acid 500 mg Chewable Tablet PO SCH (07:46)
[2020-05-11] MEDS: Escitalopram Oxalate 20 mg Tablet PO SCH (07:46)
[2020-05-11] MEDS: Thiamine 100 MG TAB PO SCH (07:46)
[2020-05-11] MEDS: Folic Acid 1 MG TAB PO SCH (07:47)
[2020-05-11] MEDS: traMADol HCl 50 MG TAB PO PRN ×3 (07:47→21:15)
[2020-05-11] MEDS: Multivit, Chewable SF 1 TAB PO SCH (07:48)
[2020-05-11] MEDS: Fluconazole In NaCl,Iso-Osm 100 MG in Admixture Fee 1 EACH IVPB SCH (10:00)
[2020-05-11 11:33] LABS: Hemoglobin 10.2 g/dL (14.0-18.0); Mean Corpuscular HGB CONC 30.5 g/dL (32.0-36.0); Mean Corpuscular Volume 85.2 fL (78.0-98.0); Mean Platelet Volume 6.3 fL (7.4-10.4); Platelet Count 64 thou/uL (130-400); RBC Distribution Width 24.5 % (11.5-14.5); Red Blood Cell (RBC) Count 3.92 mill/uL (4.70-6.10); White Blood Cell (WBC) Count 3.2 thou/uL (4.8-10.8)
[2020-05-11 11:53] LABS: ALT (SGPT) 30 U/L (8-55); AST (SGOT) 58 U/L (5-34); Albumin 2.1 g/dL (3.5-5.0); Alkaline Phosphatase 178 U/L (40-110); Anion Gap 8 mmol/L (10-20); BUN (Urea Nitrogen) 5 mg/dL (8.9-20.6); Bilirubin, Total 5.6 mg/dL (0.2-1.2); Calc. Creatinine Clearance 174 mL/min (70-130); Calcium 8.2 mg/dL (7.8-10.44); Carbon Dioxide 24 mmol/L (22-29); Chloride 102 mmol/L (98-107); Estimated GFR-MDRD Greater than 90; Globulin 4.9 g/dL (2.4-3.5); Glucose 255 mg/dL (70-105); Potassium 4.2 mmol/L (3.5-5.1); Sodium 130 mmol/L (136-145)
[2020-05-11] MEDS: HumaLOG 300 UNITS/3 ML VIAL SC PRN (12:07)
[2020-05-11] MEDS: Acetaminophen 325 MG TAB PO PRN ×2 (12:13→21:14)
--- NOTE | 2020-05-11 17:44 | PDOC.HOSPP ---
- Subjective Encounter Date: 05/11/20 Encounter Time: 11:00 Subjective: The patient is doing okay. He still complains of pain on his tongue when he swallows. Also complains that he has pain when moving his head side to side and lifting up his neck. He also reports a headache, reports lump in the back of his head which has been there for years - Objective Vital Signs & Weight: Vital Signs (12 hours) Temp Pulse Resp BP Pulse Ox 05/11/20 08:00 95 05/11/20 07:47 98.1 F 100 18 156/73 H 97 Weight Admit Weight 217 lb 2.485 oz Weight 184 lb 1.6 oz I&O: 05/10/20 05/11/20 05/12/20 06:59 06:59 06:59 Intake Total 4280 2500 Output Total 900 2250 Balance 3380 250 Result Diagrams: 05/11/20 11:23 05/11/20 11:23 Additional Labs: Accuchecks 05/11/20 05/11/20 05/11/20 16:46 11:23 05:26 POC Glucose 188 H 257 H 126 H 05/10/20 20:24 POC Glucose 192 H Hospitalist ROS - Review of Systems Constitutional: denies: fever, chills - Medication Medications: Active Medications Generic Name Dose Route Start Last Admin Trade Name Freq PRN Reason Stop Dose Admin Acetaminophen 650 mg 05/08/20 17:29 05/11/20 12:13 Tylenol PO 650 mg Q6H PRN Administration pain or fever Ascorbic Acid 1,000 mg 05/09/20 09:00 05/11/20 07:46 Vitamin C PO 1,000 mg DAILY HARPREET Administration Cephalexin 500 mg 05/10/20 17:00 05/11/20 16:23 Keflex PO 500 mg QID HARPREET Administration Al Hydroxide/Mg Hydroxide 60 0 ml 05/10/20 02:52 05/11/20 17:16 ml/ Diphenhydramine HCl 150 mg SSW 10 ml / Lidocaine HCl 60 ml/ PRN PRN Administration Nystatin 6,000,000 units Mouth Irritation Escitalopram Oxalate 20 mg 04/25/20 09:00 05/11/20 07:46 Lexapro PO 20 mg DAILY HARPREET Administration Insulin Glargine 10 units/ 0.1 mls @ 0 mls/hr 04/24/20 21:00 05/10/20 20:20 Miscellaneous Medication SC 0.1 mls HS HARPREET Administration Fluconazole/Sodium Chloride 50 mls @ 100 mls/hr 05/09/20 09:00 05/11/20 10:00 100 mg/ Miscellaneous IVPB 50 mls Medication DAILY HARPREET Administration Insulin Human Lispro 0 units 04/24/20 01:54 05/11/20 12:07 Humalog SC 6 unit .MODERATE SLIDING SC PRN Administration Moderate Correctional Scale Lactulose 20 gm 04/27/20 21:00 05/11/20 07:48 Lactulose PO Not Given BID HARPREET Multivitamins 1 tab 05/08/20 09:00 05/11/20 07:48 Multivit, Chewable Sf PO 1 tab DAILY HARPREET Administration Potassium Chloride 20 meq 05/01/20 08:00 05/11/20 07:46 K-Dur PO 20 meq QAM-WM HARPREET Administration Sodium Chloride 10 ml 04/24/20 02:11 05/05/20 08:32 Flush - Normal Saline IVF 10 ml PRN PRN Administration Saline Flush Thiamine HCl 100 mg 04/24/20 09:00 05/11/20 07:46 Thiamine PO 100 mg DAILY HARPREET Administration Tramadol HCl 50 mg 05/09/20 04:55 05/11/20 15:13 Ultram PO 50 mg Q4H PRN Administration Moderate Pain (4-6) - Exam General Appearance: NAD, awake alert General - other findings: mild lump in back of head which is tender Eye: PERRL, anicteric sclera ENT: normocephalic atraumatic, no oropharyngeal lesions ENT - other findings: glossitis evident, no white plaques noted Neck: no JVD Neck - other findings: tenderness to palpation paraspinal and turning head side to side Heart: RRR, no murmur, no gallops, no rubs Respiratory: CTAB, no wheezes, no rales, no ronchi Gastrointestinal: soft, non-tender, non-distended, normal bowel sounds, no hepatomegaly Extremities: no cyanosis, no clubbing, no edema Skin: normal turgor, no lesions, no rashes Neurological: cranial nerve grossly intact, normal sensation to touch, no focal deficits, no new deficit Musculoskeletal: normal tone, normal strength, no muscle wasting Hosp A/P - Plan This is a 49 year old male with past medical history of alcoholism presenting with inability to move, multiple falls and difficulty walking. Treated for strep bacteremia and wernicke encephalopathy, currently awaiting placement STrep bacteremia - he has received ceftriaxone for [address] Shane switch to cephalexin Neck stiffness/headache - no tenderness on temples, however noted to have tenderness turning head side to side and - negative kernig sign - will repeat MRI brain/MRi cervical spine since last ones were inconclusive. Ativan prn for claustrophobia Odynophagia - started on fluconazole and he is on multivitamin Pancytopenia - WBC 3.2, Hb 10.6, platelet count 64 - likely from cirrhosis - currently stable Hyponatremia - sodium 130, will monitor. Repeat BMP in am Type II Diabetes - fingersticks 188 to 257, continue lantus 10 units qhs
[2020-05-11] MEDS: Insulin Glargine 10 UNITS in Pre-Filled Syringe 1 EACH SC SCH (19:58)
[2020-05-11] MEDS: Lorazepam 0.5 MG TAB PO PRN (19:58)
[2020-05-12] MEDS: Aluminum & Magnesium Hydroxide 60 ML, diphenhydrAMINE 150 MG, Lidocaine 2% Viscous Solu... SSW PRN (00:22)
[2020-05-12 06:46] LABS: Anion Gap 6 mmol/L (10-20); BUN (Urea Nitrogen) 4 mg/dL (8.4-25.7); Calc. Creatinine Clearance 169 mL/min (70-130); Calcium 8.1 mg/dL (7.8-10.44); Carbon Dioxide 29 mmol/L (22-29); Chloride 104 mmol/L (98-107); Estimated GFR-MDRD Greater than 90; Glucose 148 mg/dL (70-105); Potassium 3.7 mmol/L (3.5-5.1); Sodium 135 mmol/L (136-145)
[2020-05-12 06:53] LABS: Hemoglobin 9.8 g/dL (14.0-18.0); Mean Corpuscular HGB CONC 30.2 g/dL (32.0-36.0); Mean Corpuscular Hemoglobin 25.7 pg (27.0-31.0); Mean Corpuscular Volume 85.1 fL (78.0-98.0); Mean Platelet Volume 5.5 fL (7.4-10.4); Platelet Count 61 thou/uL (130-400); RBC Distribution Width 24.2 % (11.5-14.5); Red Blood Cell (RBC) Count 3.81 mill/uL (4.70-6.10); White Blood Cell (WBC) Count 2.9 thou/uL (4.8-10.8)
[2020-05-12] MEDS: Fluconazole In NaCl,Iso-Osm 100 MG in Admixture Fee 1 EACH IVPB SCH (08:35)
[2020-05-12] MEDS: Potassium Chloride 20 MEQ TAB PO SCH (08:36)
[2020-05-12] MEDS: Cephalexin 250 MG CAP PO SCH ×4 (08:37→20:06)
[2020-05-12] MEDS: Ascorbic Acid 500 mg Chewable Tablet PO SCH (08:37)
[2020-05-12] MEDS: Escitalopram Oxalate 20 mg Tablet PO SCH (08:37)
[2020-05-12] MEDS: Thiamine 100 MG TAB PO SCH (08:38)
[2020-05-12] MEDS: Multivit, Chewable SF 1 TAB PO SCH (09:41)
[2020-05-12] MEDS: Lorazepam 0.5 MG TAB PO PRN (10:00)
--- NOTE | 2020-05-12 11:03 | MRI ---
MRI Cervical Spine WO Con History: Neck pain Comparison: Cervical spine CT April 24, 2020 Findings: Exam is limited due to extensive motion artifact. There are cerebral tonsils terminate at t he foramen magnum. No marrow infiltrative process. ACDF hardware at C5/C6. Levels are as follows: C2/C3: Mild disc desiccation and height loss. Minimal uncinate process appear to be. No neural forami nal or spinal canal narrowing. C3/C4: Mild disc desiccation and height loss. Small right paracentral disc protrusion. Mild right chirag ral foraminal narrowing. No significant spinal canal narrowing. C4/C5: Advanced degenerative disc space height loss. Large circumferential disc osteophyte complex. C omplete effacement of ventral CSF space without cord abutment. Spinal canal is narrowed to 6 to 7 mm. Moderate bilateral neural foraminal narrowing. C5/C6: Prior discectomy change and anterior fusion. No neural foraminal or spinal canal narrowing. C6/C7: Right paracentral lateral recess disc protrusion with anterior cord abutment. Spinal canal is narrowed to the paracentral region to 6 mm. No significant neural foraminal narrowing. C7/T1: Normal disc. No neural foraminal or spinal canal narrowing. Impression: Spondylosis centered at C4/C5 and C6/C7, above and below the level of cervical fusion, wi th anterior cord abutment by disc disc osteophyte complex at C4/C5 and disc protrusion at C6/C7.
--- NOTE | 2020-05-12 11:24 | MRI ---
MRI Brain W WO Con History: Evaluate for meningitis. Severe headache Comparison: MRI brain May 03, 2020 Findings: Again the exam is severely limited due to motion artifact. There is mild increased FLAIR signal within the mamillary bodies and periaqueductal white matter. Mod erate atrophy which is a abnormal for age. Abnormal increased bilateral T1 signal in the basal ganglia. Mild subcortical microangiopathic change. No acute hemorrhage. No abnormal diffusion restriction. No abnormal intraparenchymal or extraparenchymal enhancement. The corpus callosum is thin. Impression: Findings of chronic alcoholic encephalopathy along with hepatic dysfunction with acquired hepatocerebral degeneration.
[2020-05-12] MEDS ORDERED: Magnevist 469MG/ML 20 ML VIAL ONE (12:02)
[2020-05-12] MEDS: HumaLOG 300 UNITS/3 ML VIAL SC PRN ×3 (13:00→20:06)
--- NOTE | 2020-05-12 14:14 | RAD ---
XR Shoulder Lt 3 View STANDARD History: Pain after a fall Comparison: None. Findings: No acute displaced fracture or malalignment. Ribs are intact. Mild subacromial space narrow ing. Impression: No acute osseous abnormality.
--- NOTE | 2020-05-12 17:21 | PDOC.HOSPP ---
- Subjective Encounter Date: 05/12/20 Encounter Time: 09:00 Subjective: The patient continues to report headache. He can turn his head more than before. He denies photophobia, nausea/vomiting - Objective Vital Signs & Weight: Vital Signs (12 hours) Temp Pulse Resp BP BP Pulse Ox 05/12/20 12:30 98.1 F 86 18 128/54 L 95 05/12/20 07:14 98.1 F 95 18 111/43 L 96 Weight Admit Weight 217 lb 2.485 oz Weight 184 lb 1.6 oz I&O: 05/11/20 05/12/20 05/13/20 06:59 06:59 06:59 Intake Total 2500 2600 Output Total 2250 600 Balance 250 2000 Result Diagrams: 05/12/20 06:04 05/12/20 06:04 Additional Labs: Accuchecks 05/12/20 05/12/20 05/11/20 11:33 05:28 20:00 POC Glucose 193 H 172 H 267 H Hospitalist ROS - Medication Medications: Active Medications Generic Name Dose Route Start Last Admin Trade Name Freq PRN Reason Stop Dose Admin Acetaminophen 650 mg 05/08/20 17:29 05/11/20 21:14 Tylenol PO 650 mg Q6H PRN Administration pain or fever Ascorbic Acid 1,000 mg 05/09/20 09:00 05/12/20 08:37 Vitamin C PO 1,000 mg DAILY HARPREET Administration Cephalexin 500 mg 05/10/20 17:00 05/12/20 16:55 Keflex PO 05/21/20 09:00 500 mg QID HARPREET Administration Al Hydroxide/Mg Hydroxide 60 0 ml 05/10/20 02:52 05/12/20 00:22 ml/ Diphenhydramine HCl 150 mg SSW 10 ml / Lidocaine HCl 60 ml/ PRN PRN Administration Nystatin 6,000,000 units Mouth Irritation Escitalopram Oxalate 20 mg 04/25/20 09:00 05/12/20 08:37 Lexapro PO 20 mg DAILY HARPREET Administration Insulin Glargine 10 units/ 0.1 mls @ 0 mls/hr 04/24/20 21:00 05/11/20 19:58 Miscellaneous Medication SC 0.1 mls HS HARPREET Administration Fluconazole/Sodium Chloride 50 mls @ 100 mls/hr 05/09/20 09:00 05/12/20 08:35 100 mg/ Miscellaneous IVPB 50 mls Medication DAILY HARPREET Administration Insulin Human Lispro 0 units 04/24/20 01:54 05/12/20 16:52 Humalog SC 4 unit .MODERATE SLIDING SC PRN Administration Moderate Correctional Scale Lactulose 20 gm 04/27/20 21:00 05/12/20 08:39 Lactulose PO Not Given BID HARPREET Lorazepam 0.5 mg 05/11/20 12:52 05/12/20 10:00 Ativan PO 0.5 mg Q4H PRN Administration Anxiety Multivitamins 1 tab 05/08/20 09:00 05/12/20 09:41 Multivit, Chewable Sf PO 1 tab DAILY HARPREET Administration Potassium Chloride 20 meq 05/01/20 08:00 05/12/20 08:36 K-Dur PO 20 meq QAM-WM HARPREET Administration Sodium Chloride 10 ml 04/24/20 02:11 05/05/20 08:32 Flush - Normal Saline IVF 10 ml PRN PRN Administration Saline Flush Thiamine HCl 100 mg 04/24/20 09:00 05/12/20 08:38 Thiamine PO 100 mg DAILY HARPREET Administration Tramadol HCl 50 mg 05/09/20 04:55 05/11/20 21:15 Ultram PO 50 mg Q4H PRN Administration Moderate Pain (4-6) - Exam General Appearance: NAD, awake alert Eye: PERRL, anicteric sclera ENT: normocephalic atraumatic, no oropharyngeal lesions ENT - other findings: stomatitis of tongue noted Neck: no JVD Neck - other findings: neck rigidity has improved some, patient able to turn neck more Heart: RRR, no murmur, no gallops, no rubs Respiratory: CTAB, no wheezes, no rales, no ronchi Gastrointestinal: soft, non-tender, non-distended, normal bowel sounds, no hepatomegaly Extremities: no cyanosis, no clubbing, no edema Skin: normal turgor, no lesions, no rashes Neurological: cranial nerve grossly intact, normal sensation to touch, no new deficit Neurological - other findings: negative Brudzinski and kerneg sign Musculoskeletal: normal tone, normal strength, no muscle wasting Psychiatric: normal affect, normal behavior, A&O x 3, oriented to person Hosp A/P - Plan MRI brain: chronic alcoholic encephalopathy MRI cervical spine: degenerative disc disease, cervical spondylosis This is a 49 year old male with past medical history of alcoholism presenting with inability to move, multiple falls and difficulty walking. Treated for strep bacteremia and wernicke encephalopathy, currently awaiting placement STrep bacteremia - he has received ceftriaxone for [address] Shane switch to cephalexin for total of 10 days Neck stiffness/headache - possibly musculoskeletal vs meningitis - no tenderness on temples, however noted to have tenderness turning head side to side and - negative kernig sign - MRI brain showed alcoholic encephalopathy. MRI cervical spine shows cervical spondylosis, however neurosurgery recommended outpatient follow up - continue antibiotics for bacteremia as mentioned above - PT has evaluated patient, recommended rehab vs SNF Odynophagia - possibly from mucositis - started on fluconazole and he is on multivitamin - reportedly had ulcers tongue previously as well. Will try valacylovir as well one dose Pancytopenia - WBC 3.2, Hb 10.6, platelet count 64 - likely from cirrhosis - currently stable Hyponatremia - sodium up to 135 Type II Diabetes - fingersticks 170-190 Dispo: stable for discharge to longterm
[2020-05-12] MEDS ORDERED: valACYclovir 500 MG TAB PO SCH (17:30)
[2020-05-12] MEDS: Insulin Glargine 10 UNITS in Pre-Filled Syringe 1 EACH SC SCH (20:06)
[2020-05-12] MEDS: Acetaminophen 325 MG TAB PO PRN (20:06)
[2020-05-12] MEDS: traMADol HCl 50 MG TAB PO PRN (20:58)
[2020-05-13] MEDS: Acetaminophen 325 MG TAB PO PRN (01:58)
[2020-05-13] MEDS: HumaLOG 300 UNITS/3 ML VIAL SC PRN ×4 (04:46→21:01)
[2020-05-13 07:39] LABS: Hemoglobin 9.8 g/dL (14.0-18.0); Mean Corpuscular HGB CONC 30.8 g/dL (32.0-36.0); Mean Corpuscular Hemoglobin 26.5 pg (27.0-31.0); Mean Corpuscular Volume 85.9 fL (78.0-98.0); Mean Platelet Volume 5.7 fL (7.4-10.4); Platelet Count 58 thou/uL (130-400); RBC Distribution Width 24.5 % (11.5-14.5); Red Blood Cell (RBC) Count 3.68 mill/uL (4.70-6.10); White Blood Cell (WBC) Count 2.9 thou/uL (4.8-10.8)
[2020-05-13 07:56] LABS: Anion Gap 7 mmol/L (10-20); BUN (Urea Nitrogen) 4 mg/dL (8.4-25.7); Calc. Creatinine Clearance 178 mL/min (70-130); Calcium 8.3 mg/dL (7.8-10.44); Carbon Dioxide 26 mmol/L (22-29); Chloride 105 mmol/L (98-107); Estimated GFR-MDRD Greater than 90; Glucose 149 mg/dL (70-105); Potassium 3.7 mmol/L (3.5-5.1); Sodium 134 mmol/L (136-145)
[2020-05-13] MEDS: traMADol HCl 50 MG TAB PO PRN ×2 (08:30→22:40)
[2020-05-13] MEDS: Cephalexin 250 MG CAP PO SCH ×4 (08:33→21:00)
[2020-05-13] MEDS: Escitalopram Oxalate 20 mg Tablet PO SCH (08:34)
[2020-05-13] MEDS: Potassium Chloride 20 MEQ TAB PO SCH (08:34)
[2020-05-13] MEDS: Thiamine 100 MG TAB PO SCH (08:34)
[2020-05-13] MEDS: Ascorbic Acid 500 mg Chewable Tablet PO SCH (08:34)
[2020-05-13] MEDS: Multivit, Chewable SF 1 TAB PO SCH (08:36)
[2020-05-13] MEDS: Fluconazole In NaCl,Iso-Osm 100 MG in Admixture Fee 1 EACH IVPB SCH (10:23)
[2020-05-13] MEDS ORDERED: Cyclobenzaprine 10 MG TAB PO SCH (12:00)
--- NOTE | 2020-05-13 13:39 | PDOC.HOSPP ---
- Subjective Encounter Date: 05/13/20 Subjective: NEUROLOGY PROGRESS NOTE Patient complaining of headache. No acute issues overnight. MRI brain negative for acute process. - Objective Vital Signs & Weight: Vital Signs (12 hours) Temp Pulse Resp BP Pulse Ox 05/13/20 11:33 98.4 F 81 16 138/55 L 95 05/13/20 07:36 98.6 F 76 16 137/54 L 97 05/13/20 04:03 98.2 F 88 18 131/57 L 97 Weight Admit Weight 217 lb 2.485 oz Weight 184 lb 1.6 oz I&O: 05/12/20 05/13/20 05/14/20 06:59 06:59 06:59 Intake Total 2600 2187 Output Total 600 1250 Balance 1999 93 Result Diagrams: 05/13/20 07:26 05/13/20 07:26 Additional Labs: Accuchecks 05/13/20 05/13/20 05/12/20 11:43 04:49 19:48 POC Glucose 263 H 183 H 252 H 05/12/20 05/12/20 16:56 15:23 POC Glucose 230 H 249 H Radiology Reviewed by me: Yes EKG Reviewed by me: Yes Hospitalist ROS - Review of Systems Constitutional: denies: fever, chills, sweats, weakness, malaise, other Eyes: denies: pain, vision change, conjunctivae inflammation, eyelid inflammation, redness, other ENT: denies: ear pain, ear discharge, nose pain, nose discharge, nose congestion , mouth pain, mouth swelling, throat pain, throat swelling, other Respiratory: denies: cough, dry, shortness of breath, hemoptysis, SOB with excertion, pleuritic pain, sputum, wheezing, other Cardiovascular: reports: light headedness. denies: chest pain, palpitations, orthopnea, paroxysmal noc. dyspnea, edema, other Gastrointestinal: denies: nausea, vomiting, abdominal pain, diarrhea, constipation, melena, hematochezia, other Musculoskeletal: reports: neck pain, shoulder pain. denies: arm pain, back pain , hand pain, leg pain, foot pain, other Skin: denies: rash, lesions, robert, bruising, other Neurological: reports: incoordination. denies: weakness, numbness, change in speech, confusion, seizures (headache), other - Medication Medications: Active Medications Generic Name Dose Route Start Last Admin Trade Name Freq PRN Reason Stop Dose Admin Acetaminophen 650 mg 05/08/20 17:29 05/13/20 01:58 Tylenol PO 650 mg Q6H PRN Administration pain or fever Ascorbic Acid 1,000 mg 05/09/20 09:00 05/13/20 08:34 Vitamin C PO 1,000 mg DAILY HARPREET Administration Cephalexin 500 mg 05/10/20 17:00 05/13/20 12:25 Keflex PO 05/21/20 09:00 500 mg QID HARPREET Administration Al Hydroxide/Mg Hydroxide 60 0 ml 05/10/20 02:52 05/12/20 00:22 ml/ Diphenhydramine HCl 150 mg SSW 10 ml / Lidocaine HCl 60 ml/ PRN PRN Administration Nystatin 6,000,000 units Mouth Irritation Cyclobenzaprine HCl 5 mg 05/13/20 12:00 05/13/20 12:25 Flexeril PO 05/13/20 14:00 5 mg NOW HARPREET Administration Escitalopram Oxalate 20 mg 04/25/20 09:00 05/13/20 08:34 Lexapro PO 20 mg DAILY HARPREET Administration Insulin Glargine 10 units/ 0.1 mls @ 0 mls/hr 04/24/20 21:00 05/12/20 20:06 Miscellaneous Medication SC 0.1 mls HS HARPREET Administration Fluconazole/Sodium Chloride 50 mls @ 100 mls/hr 05/09/20 09:00 05/13/20 10:23 100 mg/ Miscellaneous IVPB 50 mls Medication DAILY HARPREET Administration Insulin Human Lispro 0 units 04/24/20 01:54 05/13/20 12:28 Humalog SC 6 unit .MODERATE SLIDING SC PRN Administration Moderate Correctional Scale Lactulose 20 gm 04/27/20 21:00 05/13/20 08:35 Lactulose PO Not Given BID HARPREET Lorazepam 0.5 mg 05/11/20 12:52 05/12/20 10:00 Ativan PO 0.5 mg Q4H PRN Administration Anxiety Multivitamins 1 tab 05/08/20 09:00 05/13/20 08:36 Multivit, Chewable Sf PO 1 tab DAILY HARPREET Administration Potassium Chloride 20 meq 05/01/20 08:00 05/13/20 08:34 K-Dur PO 20 meq QAM-WM HARPREET Administration Sodium Chloride 10 ml 04/24/20 02:11 05/05/20 08:32 Flush - Normal Saline IVF 10 ml PRN PRN Administration Saline Flush Thiamine HCl 100 mg 04/24/20 09:00 05/13/20 08:34 Thiamine PO 100 mg DAILY HARPREET Administration Tramadol HCl 50 mg 05/09/20 04:55 05/13/20 08:30 Ultram PO 50 mg Q4H PRN Administration Moderate Pain (4-6) - Exam General Appearance: awake alert Eye: PERRL ENT: normocephalic atraumatic Neck: supple Heart: RRR Respiratory: CTAB Gastrointestinal: soft Extremities: no cyanosis Skin: normal turgor Neurological: no focal deficits, no new deficit Psychiatric: normal affect, normal behavior, A&O x 3, oriented to place, oriented to time Hosp A/P (1) Acute metabolic encephalopathy Code(s): G93.41 - METABOLIC ENCEPHALOPATHY Status: Resolved (2) Bacteremia due to Gram-positive bacteria Code(s): R78.81 - BACTEREMIA Status: Acute (3) Elevated troponin Code(s): R79.89 - OTHER SPECIFIED ABNORMAL FINDINGS OF BLOOD CHEMISTRY Status : Acute (4) Fever Code(s): R50.9 - FEVER, UNSPECIFIED Status: Acute (5) Nondisplaced right frontal skull fracture Code(s): S02.0XXA - FRACTURE OF VAULT OF SKULL, INIT ENCNTR FOR CLOSED FRACTURE Status: Acute - Plan PT/OT 49 year old consulted for altered mental status. Altered mental status seem to be multifactorial due to infectious and metabolic etiology. Wernicke is also in the due to history of alcohol abuse and MRI brain showed subtle signal in thalami, periventricular white matter and mamillary bodies which is seen with Wernicke's encephalopathy. Recent MRI brain reviewed and was negative for new stroke or bleed. Patient clinically stable but reports headache. Recommend Gabapentin 300 mg tid. EEG showed o evidence of seizure activity. Continue home medications. Continue medical management per primary team. PT/OT Plan communicated with primary attending Dr. Francois and the patient.
[2020-05-13] MEDS ORDERED: Gabapentin 300 MG CAP PO SCH ×2 (15:45→21:00)
--- NOTE | 2020-05-13 16:12 | PDOC.HOSPP ---
- Subjective Encounter Date: 05/13/20 Encounter Time: 11:00 Subjective: CC: headache/neck pain/shoulder pain/odynophagia Headaches/neck pain- Patient has no acute changes but endorses headache that has been present for a while, which he is most worried about. He states it can get up to a 10/10 at times. It originates from the occiput and worsens with lateral neck movements, especially after not moving it for a while. Denies photophobia, nausea, or vomiting. Left shoulder pain - Patient stated that he forgot that his left arm was hurting him. When he uses it, he often has to assist it with the other arm. Denies forearm pain. Odynophagia - Less of a concern today, but still endorses burning of his tongue with certain foods. After speaking with employment case manager, patient has been denied from multiple nursing homes due to unfunded status. Discussed with sister who is agreeable to taking the patient home, but she cannot pick up attendant the patient today. SHe prefers tomorrow am and will have her mother pick him up. Pt is eager to go home today - Objective Vital Signs & Weight: Vital Signs (12 hours) Temp Pulse Resp BP Pulse Ox 05/13/20 15:15 98.3 F 90 14 134/53 L 94 L 05/13/20 11:33 98.4 F 81 16 138/55 L 95 05/13/20 07:36 98.6 F 76 16 137/54 L 97 Weight Admit Weight 217 lb 2.485 oz Weight 184 lb 1.6 oz I&O: 05/12/20 05/13/20 05/14/20 06:59 06:59 06:59 Intake Total 2600 2187 480 Output Total 600 1250 Balance 2000 677 081 Result Diagrams: 05/13/20 07:26 05/13/20 07:26 Additional Labs: Accuchecks 05/13/20 05/13/20 05/13/20 15:28 11:43 04:49 POC Glucose 238 H 263 H 183 H 05/12/20 05/12/20 05/12/20 19:48 16:56 15:23 POC Glucose 252 H 230 H 249 H Hospitalist ROS - Review of Systems ENT: reports: mouth pain (burning of tongue) Gastrointestinal: denies: nausea, vomiting Musculoskeletal: reports: neck pain, shoulder pain, arm pain - Medication Medications: Active Medications Generic Name Dose Route Start Last Admin Trade Name Freq PRN Reason Stop Dose Admin Acetaminophen 650 mg 05/08/20 17:29 05/13/20 01:58 Tylenol PO 650 mg Q6H PRN Administration pain or fever Ascorbic Acid 1,000 mg 05/09/20 09:00 05/13/20 08:34 Vitamin C PO 1,000 mg DAILY HARPREET Administration Cephalexin 500 mg 05/10/20 17:00 05/13/20 12:25 Keflex PO 05/21/20 09:00 500 mg QID HARPREET Administration Al Hydroxide/Mg Hydroxide 60 0 ml 05/10/20 02:52 05/12/20 00:22 ml/ Diphenhydramine HCl 150 mg SSW 10 ml / Lidocaine HCl 60 ml/ PRN PRN Administration Nystatin 6,000,000 units Mouth Irritation Escitalopram Oxalate 20 mg 04/25/20 09:00 05/13/20 08:34 Lexapro PO 20 mg DAILY HARPREET Administration Insulin Glargine 10 units/ 0.1 mls @ 0 mls/hr 04/24/20 21:00 05/12/20 20:06 Miscellaneous Medication SC 0.1 mls HS HARPREET Administration Fluconazole/Sodium Chloride 50 mls @ 100 mls/hr 05/09/20 09:00 05/13/20 10:23 100 mg/ Miscellaneous IVPB 50 mls Medication DAILY HARPREET Administration Insulin Human Lispro 0 units 04/24/20 01:54 05/13/20 12:28 Humalog SC 6 unit .MODERATE SLIDING SC PRN Administration Moderate Correctional Scale Lactulose 20 gm 04/27/20 21:00 05/13/20 08:35 Lactulose PO Not Given BID HARPREET Lorazepam 0.5 mg 05/11/20 12:52 05/12/20 10:00 Ativan PO 0.5 mg Q4H PRN Administration Anxiety Multivitamins 1 tab 05/08/20 09:00 05/13/20 08:36 Multivit, Chewable Sf PO 1 tab DAILY HARPREET Administration Potassium Chloride 20 meq 05/01/20 08:00 05/13/20 08:34 K-Dur PO 20 meq QAM-WM HARPREET Administration Sodium Chloride 10 ml 04/24/20 02:11 05/05/20 08:32 Flush - Normal Saline IVF 10 ml PRN PRN Administration Saline Flush Thiamine HCl 100 mg 04/24/20 09:00 05/13/20 08:34 Thiamine PO 100 mg DAILY HARPREET Administration Tramadol HCl 50 mg 05/09/20 04:55 05/13/20 08:30 Ultram PO 50 mg Q4H PRN Administration Moderate Pain (4-6) - Exam General Appearance: NAD, awake alert Eye: scleral icterus ENT: normocephalic atraumatic, moist mucosa Heart: RRR, no murmur, no gallops, no rubs Respiratory: CTAB, no wheezes, no rales, no ronchi, no tachypnea, normal percussion Gastrointestinal: soft, non-tender, non-distended Extremities: no edema Extremities - other findings: ecchymosis Neurological - other findings: tenderness left biceps Musculoskeletal - other findings: L jaw tend, bilateral neck tend, L shoulder pain with internal rotation Psychiatric: normal affect, normal behavior, A&O x 3 Hosp A/P (1) Headache Code(s): R51 - HEADACHE Status: Acute Qualifiers: Headache type: tension-type Headache chronicity pattern: chronic headache - Plan MRI brain: chronic alcoholic encephalopathy MRI cervical spine: degenerative disc disease, cervical spondylosis This is a 49 year old male with past medical history of alcoholism presenting with inability to move, multiple falls and difficulty walking. Treated for strep bacteremia and wernicke encephalopathy, currently awaiting placement Strep bacteremia - he has received ceftriaxone for [address] Shane switch to cephalexin for total of 10 days Neck stiffness/headache - possibly musculoskeletal vs meningitis - no tenderness on temples, however noted to have tenderness turning head side to side - negative kernig sign - MRI brain showed alcoholic encephalopathy. MRI cervical spine shows cervical spondylosis, however neurosurgery recommended outpatient follow up - continue antibiotics for bacteremia as mentioned above - PT has evaluated patient, recommended rehab vs SNF - given 5 mg Flexeril, improved pain from 07/20 to 04/19 - will start Gabapentin 300 mg PO TID Odynophagia - possibly from mucositis - started on fluconazole and he is on multivitamin - reportedly had ulcers tongue previously as well. Pancytopenia - WBC 2.9, Hb 9.8, platelet count 58 - likely from cirrhosis - currently stable Hyponatremia - sodium up to 134 Type II Diabetes - fingersticks 150 -230 - will lantus 6 units qam, continue 10 units qhs Dispo: stable for discharge to go home, mother will pick up attendant patient tomorrow since sister is unavailable today, pt is eager to leave
[2020-05-13] MEDS: Insulin Glargine 10 UNITS in Pre-Filled Syringe 1 EACH SC SCH (21:00)
[2020-05-13] MEDS: Gabapentin 300 MG CAP PO SCH (21:00)
[2020-05-14] MEDS: HumaLOG 300 UNITS/3 ML VIAL SC PRN ×2 (05:35→11:24)
[2020-05-14] MEDS: traMADol HCl 50 MG TAB PO PRN ×2 (05:44→09:31)
[2020-05-14 05:54] LABS: Hemoglobin 9.4 g/dL (14.0-18.0); Mean Corpuscular HGB CONC 31.7 g/dL (32.0-36.0); Mean Corpuscular Hemoglobin 27.4 pg (27.0-31.0); Mean Corpuscular Volume 86.3 fL (78.0-98.0); Mean Platelet Volume 5.3 fL (7.4-10.4); Platelet Count 55 thou/uL (130-400); RBC Distribution Width 24.6 % (11.5-14.5); Red Blood Cell (RBC) Count 3.44 mill/uL (4.70-6.10); White Blood Cell (WBC) Count 3.4 thou/uL (4.8-10.8)
[2020-05-14 06:06] LABS: Anion Gap 6 mmol/L (10-20); BUN (Urea Nitrogen) 4 mg/dL (8.4-25.7); Calc. Creatinine Clearance 178 mL/min (70-130); Carbon Dioxide 25 mmol/L (22-29); Chloride 103 mmol/L (98-107); Estimated GFR-MDRD Greater than 90; Glucose 208 mg/dL (70-105); Potassium 3.7 mmol/L (3.5-5.1); Sodium 130 mmol/L (136-145)
[2020-05-14] MEDS: Cephalexin 250 MG CAP PO SCH ×4 (08:37→20:43)
[2020-05-14] MEDS: Fluconazole In NaCl,Iso-Osm 100 MG in Admixture Fee 1 EACH IVPB SCH (08:37)
[2020-05-14] MEDS: Gabapentin 300 MG CAP PO SCH ×3 (08:38→20:43)
[2020-05-14] MEDS: Potassium Chloride 20 MEQ TAB PO SCH (08:38)
[2020-05-14] MEDS: Multivit, Chewable SF 1 TAB PO SCH (08:38)
[2020-05-14] MEDS: Ascorbic Acid 500 mg Chewable Tablet PO SCH (08:38)
[2020-05-14] MEDS: Escitalopram Oxalate 20 mg Tablet PO SCH (08:38)
[2020-05-14] MEDS: Thiamine 100 MG TAB PO SCH (08:38)
[2020-05-14] MEDS: Insulin Glargine 6 UNITS in Pre-Filled Syringe SC SCH (08:39)
[2020-05-14 10:25] LABS: INR-International Normal Ratio 2.2; PTT 45.6 sec (22.9-36.1); Prothrombin Time 24.4 sec (12.0-14.7)
[2020-05-14] MEDS: Aluminum & Magnesium Hydroxide 60 ML, diphenhydrAMINE 150 MG, Lidocaine 2% Viscous Solu... SSW PRN (14:45)
--- NOTE | 2020-05-14 16:28 | PDOC.HOSPP ---
- Subjective Encounter Date: 05/14/20 Encounter Time: 09:00 Subjective: The patient still complains of 7/10 headache, states he has some nausea with it. No photophobia . Heating pack gave only mild relief. He states he is willing to just go home and get a massage and see if the headache goes away His odynophagia has improved. He states he has been spitting up blood more at night, it was noted on tissue paper. - Objective Vital Signs & Weight: Vital Signs (12 hours) Temp Pulse Resp BP Pulse Ox 05/14/20 08:00 98.9 F 05/14/20 07:10 98.9 F 87 18 131/55 L 95 Weight Admit Weight 217 lb 2.485 oz Weight 184 lb 1.6 oz I&O: 05/13/20 05/14/20 05/15/20 06:59 06:59 06:59 Intake Total 2187 3370 600 Output Total 1250 Balance 937 3370 600 Result Diagrams: 05/14/20 05:30 05/14/20 05:30 Additional Labs: Accuchecks 05/14/20 05/14/20 05/14/20 15:22 11:14 05:39 POC Glucose 135 H 236 H 239 H 05/13/20 19:20 POC Glucose 294 H Hospitalist ROS - Review of Systems Constitutional: denies: fever, chills - Medication Medications: Active Medications Generic Name Dose Route Start Last Admin Trade Name Freq PRN Reason Stop Dose Admin Acetaminophen 650 mg 05/08/20 17:29 05/13/20 01:58 Tylenol PO 650 mg Q6H PRN Administration pain or fever Ascorbic Acid 1,000 mg 05/09/20 09:00 05/14/20 08:38 Vitamin C PO 1,000 mg DAILY HARPREET Administration Cephalexin 500 mg 05/10/20 17:00 05/14/20 14:43 Keflex PO 05/21/20 09:00 500 mg QID HARPREET Administration Al Hydroxide/Mg Hydroxide 60 0 ml 05/10/20 02:52 05/14/20 14:45 ml/ Diphenhydramine HCl 150 mg SSW 10 ml / Lidocaine HCl 60 ml/ PRN PRN Administration Nystatin 6,000,000 units Mouth Irritation Escitalopram Oxalate 20 mg 04/25/20 09:00 08/04/20 08:38 Lexapro PO 20 mg DAILY HARPREET Administration Gabapentin 300 mg 05/13/20 21:00 05/14/20 14:44 Neurontin PO 300 mg TID HARPREET Administration Insulin Glargine 10 units/ 0.1 mls @ 0 mls/hr 04/24/20 21:00 05/13/20 21:00 Miscellaneous Medication SC 0.1 mls HS HARPREET Administration Fluconazole/Sodium Chloride 50 mls @ 100 mls/hr 05/09/20 09:00 05/14/20 08:37 100 mg/ Miscellaneous IVPB 50 mls Medication DAILY HARPREET Administration Insulin Glargine 6 units/ 0.06 mls @ 0 mls/hr 05/14/20 09:00 05/14/20 08:39 Miscellaneous Medication SC 0.06 mls QAM HARPREET Administration Insulin Human Lispro 0 units 04/24/20 01:54 05/14/20 11:24 Humalog SC 4 unit .MODERATE SLIDING SC PRN Administration Moderate Correctional Scale Lactulose 20 gm 04/27/20 21:00 05/14/20 08:40 Lactulose PO Not Given BID HARPREET Lorazepam 0.5 mg 05/11/20 12:52 05/12/20 10:00 Ativan PO 0.5 mg Q4H PRN Administration Anxiety Multivitamins 1 tab 05/08/20 09:00 05/14/20 08:38 Multivit, Chewable Sf PO 1 tab DAILY HARPREET Administration Potassium Chloride 20 meq 05/01/20 08:00 05/14/20 08:38 K-Dur PO 20 meq QAM-WM HARPREET Administration Sodium Chloride 10 ml 04/24/20 02:11 05/05/20 08:32 Flush - Normal Saline IVF 10 ml PRN PRN Administration Saline Flush Thiamine HCl 100 mg 04/24/20 09:00 05/14/20 08:38 Thiamine PO 100 mg DAILY HARPREET Administration Tramadol HCl 50 mg 05/09/20 04:55 05/14/20 09:31 Ultram PO 50 mg Q4H PRN Administration Moderate Pain (4-6) - Exam General Appearance: NAD, awake alert Eye: PERRL, anicteric sclera ENT - other findings: dry lips. Some dried blood around mouth Neck: supple, no JVD Heart: RRR, no murmur Respiratory: CTAB, no wheezes, no rales, no ronchi, normal percussion Gastrointestinal: soft, non-tender, non-distended, normal bowel sounds, no hepatomegaly Extremities: no cyanosis, no clubbing, no edema Skin: normal turgor, no lesions, no rashes Neurological: cranial nerve grossly intact, normal sensation to touch, no focal deficits, no new deficit Neurological - other findings: he is able to move head side to side Hosp A/P (1) Headache Code(s): R51 - HEADACHE Status: Acute Qualifiers: Headache type: tension-type Headache chronicity pattern: chronic headache - Plan MRI brain: chronic alcoholic encephalopathy MRI cervical spine: degenerative disc disease, cervical spondylosis This is a 49 year old male with past medical history of alcoholism presenting with inability to move, multiple falls and difficulty walking. Treated for strep bacteremia and wernicke encephalopathy, currently awaiting placement Strep bacteremia - he has received ceftriaxone for [address] Shane switch to cephalexin for total of 10 days Neck stiffness/headache - possibly musculoskeletal vs meningitis - no tenderness on temples, however noted to have tenderness turning head side to side - negative kernig sign - MRI brain showed alcoholic encephalopathy. MRI cervical spine shows cervical spondylosis, however neurosurgery recommended outpatient follow up - continue antibiotics for bacteremia as mentioned above - PT has evaluated patient, recommended rehab vs SNF - continue gabapentin 300 mg tid. Will consider sumatriptan. - given 5 mg Flexeril, improved pain from 10/10 to 7/10 - will start Gabapentin 300 mg PO TID Odynophagia - possibly from mucositis - started on fluconazole and he is on multivitamin - reportedly had ulcers tongue previously as well. - GI has been consulted. PLan for EGD tomorrow Pancytopenia - WBC 3.4, Hb 9.4, platelet count 54 - likely from cirrhosis - currently stabr Hyponatremia - sodium down to 130, given history of cirrhosis, will resume spironolactone and fluid restriction - repeat BMP tomorrow Type II Diabetes - fingersticks 150 -230 - will lantus 6 units qam, continue 10 units qhs Dispo: plan for EGD tomorrow, then possible discharge
[2020-05-14] MEDS ORDERED: Spironolactone 25 MG TAB PO SCH (16:45)
[2020-05-14] MEDS: Insulin Glargine 10 UNITS in Pre-Filled Syringe 1 EACH SC SCH (20:43)
--- NOTE | 2020-05-14 21:20 | CON ---
DATE OF CONSULTATION: 05/14/2020 CHIEF COMPLAINT: Cirrhosis, blood staining on his lips. HISTORY OF PRESENT ILLNESS: Mr. Crowley is a 50-year-old man with a history of peptic ulcer disease and cirrhosis who was admitted with strep bacteremia. He has been treated with antibiotics for that and was originally planned to be discharged, however, today was noted to blood on the rim of his cup and states he has nose bleeds intermittently and GI was asked to evaluate him regarding anemia and cirrhosis. He has had no nausea or vomiting. No diarrhea, constipation, or blood in the stool. He does get occasional nose bleeds 2 or 3 times per week and will feel the blood running down his face. He has had chapped lips here in the hospital and some bruising around that. He has had no alcohol for the last month now. He had been drinking regularly up to that point. He has a history of alcoholic cirrhosis and the last time he was in the hospital in 2015 was the last time he was evaluated by GI. At that time, he was admitted with a perforated ulcer and required surgical intervention for that. He had decompensated cirrhosis then. PAST MEDICAL HISTORY: Cirrhosis of the liver, peptic ulcer disease, alcohol abuse, diabetes mellitus, hypertension. PAST SURGICAL HISTORY: He had a hernia repair. He had open laparotomy with an omental patch and pyloroplasty in July of 2016 for a perforated pyloric channel ulcer. He also underwent cholecystectomy at that time and was left with an open wound that healed by secondary intention. FAMILY HISTORY: Negative for GI malignancies. SOCIAL HISTORY: Smokes daily. He states that he quit drinking a month ago. He drank heavily prior to that. No drugs. REVIEW OF SYSTEMS: Negative x10 systems reviewed except as stated in history of present illness. PHYSICAL EXAMINATION: VITAL SIGNS: Temperature 98.9, blood pressure 131/55, pulse 87. GENERAL: He is in no acute distress. Alert and oriented x3. EYES: Have scleral icterus. MOUTH: Oropharynx has dry mucous membranes and chapped lips that are bloody. NECK: He has no cervical or supraclavicular lymphadenopathy. LUNGS: Clear to auscultation bilaterally. HEART: Regular rate and rhythm without murmur. ABDOMEN: Soft, nontender, and nondistended. Bowel sounds are present. He has spider angiomas on the skin. EXTREMITIES: 1+ lower extremity edema. LABORATORY DATA: White blood cell count 3.4, hemoglobin 9.4, platelets 55, bilirubin 5.6. Bilirubin was 10.5 on 05/03/2020. AST 58, ALT 30 alk phos 178, albumin 2.1. IMPRESSION: 1. Decompensated cirrhosis secondary to alcohol. He quit drinking either when he was admitted or potentially a week or two before. 2. 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 3. Odynophagia. He complains of painful swallowing for the last month. This is more in his throat. Unclear, if this is related to his streptococcus bacteremia or if he has something else going on like fungal esophagitis or other mucositis. RECOMMENDATIONS: 1. Plan EGD tomorrow to evaluate his anemia and for esophageal varices and evaluate odynophagia. There is no evidence of acute overt GI bleeding at this point. He has brown stool in the rectal vault by rectal exam. He has had no vomiting, nausea or abdominal pain. 2. Check alpha fetoprotein. 3. Alcohol abstinence. Job ID: [id number]
[2020-05-15 06:06] LABS: Hemoglobin 9.6 g/dL (14.0-18.0); Mean Corpuscular HGB CONC 30.2 g/dL (32.0-36.0); Mean Corpuscular Hemoglobin 26.2 pg (27.0-31.0); Mean Corpuscular Volume 86.7 fL (78.0-98.0); Mean Platelet Volume 5.6 fL (7.4-10.4); Platelet Count 61 thou/uL (130-400); RBC Distribution Width 24.3 % (11.5-14.5); Red Blood Cell (RBC) Count 3.66 mill/uL (4.70-6.10); White Blood Cell (WBC) Count 3.8 thou/uL (4.8-10.8)
[2020-05-15 06:08] LABS: INR-International Normal Ratio 2.1; Prothrombin Time 23.3 sec (12.0-14.7)
[2020-05-15 06:28] LABS: ALT (SGPT) 22 U/L (8-55); AST (SGOT) 42 U/L (5-34); Alkaline Phosphatase 132 U/L (40-110); Anion Gap 7 mmol/L (10-20); BUN (Urea Nitrogen) 4 mg/dL (8.4-25.7); Bilirubin, Total 6.6 mg/dL (0.2-1.2); Calc. Creatinine Clearance 172 mL/min (70-130); Calcium 8.1 mg/dL (7.8-10.44); Carbon Dioxide 26 mmol/L (22-29); Chloride 103 mmol/L (98-107); Estimated GFR-MDRD Greater than 90; Globulin 4.5 g/dL (2.4-3.5); Glucose 117 mg/dL (70-105); Protein, Total 6.5 g/dL (6.0-8.3); Sodium 132 mmol/L (136-145)
[2020-05-15] MEDS: Insulin Glargine 6 UNITS in Pre-Filled Syringe SC SCH (08:15)
[2020-05-15] MEDS: Cephalexin 250 MG CAP PO SCH ×2 (08:16→13:18)
[2020-05-15] MEDS: Ascorbic Acid 500 mg Chewable Tablet PO SCH (08:17)
[2020-05-15] MEDS: Potassium Chloride 20 MEQ TAB PO SCH (08:17)
[2020-05-15] MEDS: Escitalopram Oxalate 20 mg Tablet PO SCH (08:18)
[2020-05-15] MEDS: Gabapentin 300 MG CAP PO SCH (08:18)
[2020-05-15] MEDS: traMADol HCl 50 MG TAB PO PRN ×2 (08:18→13:18)
[2020-05-15] MEDS: Fluconazole In NaCl,Iso-Osm 100 MG in Admixture Fee 1 EACH IVPB SCH (08:18)
[2020-05-15] MEDS: Thiamine 100 MG TAB PO SCH (08:18)
[2020-05-15] MEDS: Multivit, Chewable SF 1 TAB PO SCH (08:19)
[2020-05-15] MEDS ORDERED: Spironolactone 25 MG TAB PO SCH (09:00)
[2020-05-15] MEDS ORDERED: PROPOFOL 200 MG/20 ML VIAL ONE (10:10)
[2020-05-15] MEDS ORDERED: Dextrose 5 %-0.45 % NaCl 1,000 ML IV SCH (12:15)
[2020-05-15] MEDS ORDERED: Sucralfate 1 GM/10 ML UDCUP PO PRN (12:45)
[2020-05-15 14:03] VITALS: BP 111/50; TEMP 98
--- NOTE | 2020-05-15 16:24 | OP ---
DATE OF PROCEDURE: 05/15/2020 PROCEDURE PERFORMED: Esophagogastroduodenoscopy with biopsy. INDICATIONS FOR PROCEDURE: History of cirrhosis, odynophagia. DESCRIPTION OF PROCEDURE: After the risks and benefits of the procedure were explained to the patient including risks of bleeding, infection, perforation, reactions to anesthesia, aspiration, and/or pain, informed consent was obtained. The patient was then taken to the endoscopy suite where he was maneuvered into the left lateral decubitus position followed by introduction of deep sedation via propofol and anesthesia support. Once adequate sedation was achieved, the standard gastroscope was introduced into the mouth with intubation of the esophagus, stomach, and the proximal small intestines with the findings listed below. The patient tolerated the procedure well with no immediate perioperative complications. On conclusion of the procedure, all equipment was removed from the patient and he was transferred to PACU in satisfactory condition. FINDINGS: Posterior oropharynx: A 2-mm ulceration was noted along the interior aspect of the maxilla, adjacent to the rear molar, but did not exhibit any evidence of active or recent bleeding. Otherwise, no other abnormalities were seen on visualization of the posterior oropharynx, although the vocal cords did appear quite yellow in appearance. Esophagus: Normal-appearing mucosa was seen in the proximal, mid, and distal esophagus. There was no evidence of erosions, ulcerations, mass lesions, or active/recent bleeding. There was also no evidence of whitish plaques consistent with Mariel esophagitis. Multiple random biopsies were taken throughout the length of the esophagus for further evaluation. Stomach: Mild increased mucosal erythema was seen throughout the entire stomach, exhibiting a mosaic like appearance. However, there was no evidence of erosions, ulcerations, mass lesions, or active/recent bleeding. No gastric varices were seen on gastric retroflexion. Duodenum: A 3-mm cratered clean-based ulceration was seen in the duodenal bulb and it was associated with increased surrounding mucosal erythema, but no evidence of active or recent bleeding, and adjacent just superior to this 1st ulcerations showed some very superficial punctate ulcerations with surrounding mucosal erythema, but again no active or recent bleeding. Multiple biopsies were taken from both of these ulceration sites for further evaluation. Otherwise normal-appearing mucosa was seen in the second portion of the duodenum. There was no evidence of mass lesions. IMPRESSION: 1. Small ulcerations seen in the oral maxilla, concerning for possible etiology for the patient's odynophagia. 2. Normal esophagus with no evidence of esophageal varices nor Mariel esophagitis. 3. Mild mucosal erythema in a mosaic pattern in the stomach, consistent with mild portal hypertensive gastropathy. 4. A 3-mm cratered clean-based ulceration and a punctate ulcer seen in the duodenal bulb status post biopsies; most likely due to either nonsteroidal anti-inflammatory drugs versus Helicobacter pylori. RECOMMENDATIONS: 1. Would start the patient on pantoprazole 40 mg b.i.d. in light of possible acid reflux causing odynophagia. 2. Would follow up on biopsies with further care guided by pathology report. If the gastric biopsies or duodenal biopsies are positive for H pylori, I would then consider starting the patient on triple therapy (amoxicillin 1 g b.i.d., clarithromycin 500 mg b.i.d., PPI 40 mg b.i.d. x14 days). 3. Would add sucralfate to the patient's regimen for symptomatic relief of the odynophagia. 4. Given the ulcerations seen along the maxilla, I would consult ENT Service for further evaluation of his odynophagia. 5. Continue antibiotic administration for his resolving Strep bacteremia. 6. We are starting the patient on fluconazole during this admission, it is unclear if the patient may have had a Mariel esophagitis initially, that is not present on upper endoscopy today. Would probably recommend continuation of the oral fluconazole for a total duration of therapy of 14 days. We will continue to follow with Dr. Alvarez following up on this patient tomorrow. Please call with any questions. Job ID: [id number]
--- NOTE | 2020-05-16 10:04 | DIS ---
DATE OF ADMISSION: 04/24/2020 DATE OF DISCHARGE: 05/15/2020 DISCHARGE DIAGNOSES: 1. Sepsis secondary to Streptococcus agalactiae bacteremia. 2. Severe headache, possibly secondary to cervicogenic headache versus tension headache versus meningitis. 3. Rhabdomyolysis. 4. Alcohol abuse/cirrhosis. 5. Acute encephalopathy. 6. Hyponatremia. 7. Alcoholic encephalopathy. BRIEF HISTORY OF PRESENT ILLNESS: This is a 49-year-old male, who presented to the emergency room due to generalized weakness. He states he woke up and was unable to move and had to crawl on the floor and suffered multiple falls while trying to walk. When he presented to the emergency room, he had a CK level of 10,510. He also had a sodium of 129. He was also noted to have an AST of over 300, ALT of 53, and alkaline phosphatase of 254. He was admitted for further workup. HOSPITAL COURSE: Severe weakness secondary to rhabdomyolysis: The patient was treated with IV fluids. His CK trended down to 1983. He was seen by Physical Therapy and initially thought to recommend rehab. His weakness may be due to chronic alcoholic encephalopathy. Rehab declined patient due to his unfunded status. He will be discharged to stay with his sister. He was ambulatory with assistance of a rolling walker at the time of discharge. Sepsis secondary to strep bacteremia, possible meningitis: The patient's blood cultures turned out positive for Strep agalactiae. Repeat blood cultures on 05/11 were negative. He was treated with IV ceftriaxone for 14 days. He will be discharged with Keflex for an additional 10 days until the . Consider follow up with Dr. Shane, his PCP in a week. Possible meningitis/cervicogenic headache: The patient reported severe headache and had neck stiffness and rigidity and was unable to turn his neck [id number]. LP could not be done due to INR of 2.7. He was treated empirically with two weeks of IV ceftriaxone and will be getting additional 10 days of oral Keflex. MRI brain showed no stroke but alcoholic encephalopathy. MRI cervical spine showed cervical spondylosis. Neurosurgery was contacted who recommended outpatient follow up. I did palpate his head and he did have tenderness at his occiput as well as tenderness paraspinally around his neck. He did report improvement with massage. He also had some improvement with Flexeril. Neurology advised that the patient take gabapentin 300 mg p.o. t.i.d. Alcohol abuse/cirrhosis: The patient had decompensated cirrhosis. He was started on thiamine and folic acid and given a banana bag. He was noted to have jaundice with his bilirubin peaking at 10.5, but has since trended down to 6.6. He was discharged with spironolactone 25 mg. GI also saw the patient and he was told to follow up with GI in 2 to 3 weeks and have repeat LFTs done at that time. Odynophagia possibly thrush vs peptic ulcer: The patient had severe pain with swallowing. His tongue was very enlarged. There was a concern for possible thrush. He was started on IV fluconazole on 05/09. He did start having improvement in his ability to swallow. He was discharged with fluconazole 100 mg daily for an additional week. GI also performed an EGD on him and he was found to have a peptic ulcer and an ulcer in his back molar near his maxilla. He was discharged on Protonix 40 mg p.o. b.i.d. and sucralfate 1 g p.o. q.i.d. p.r.n. Right lung pneumonia: This was noted incidentally on CT of the chest. He has been treated with antibiotics. He should get a repeat chest x-ray in 6 weeks. Left shoulder pain: The patient did have some pain on palpation of his left shoulder and while raising his left shoulder. No fracture was noted. Alcohol abuse: The patient was monitored with PIPER protocol in the hospital. He states that he will stop drinking on discharge. He was discharged with multivitamin, folate, and thiamine supplements. Hyponatremia: The patient had a sodium of 129. This improved to 138 with IV fluids. Thereafter, his sodium seemed to fluctuate from 130 to 135. It was 132 on the day of discharge. He was resumed on spironolactone and should get a repeat BMP in a week. DISCHARGE PHYSICAL EXAMINATION: VITAL SIGNS: Temperature 98.0, HR 79, RR 18, O2 saturation 97% on room air, and blood pressure 111/50. GENERAL: The patient is alert, awake, and oriented x3. EYES: The patient has scleral icterus bilaterally. HEAD: The patient has tenderness with a mild lump noted on his occiput, which the patient states is chronic. NECK: The patient has paraspinal tenderness around each neck. He does have some pain when turning his head side to side, but his range of motion has improved from the day prior. CVS: Regular rate and rhythm with no murmurs, rubs, or gallops. LUNGS: Clear to auscultation bilaterally. ABDOMEN: Positive bowel sounds, soft, nontender, nondistended. EXTREMITIES: No edema. THROAT: The patient has dry lips. He does have some dried blood on his tongue. There is evidence of glossitis as well. LABORATORY DATA: CBC 05/15: White count 3.8, hemoglobin 9.6, hematocrit 31.7, platelet count 61. BMP 05/15: Sodium 132. Creatinine 0.6. Rest of BMP unremarkable. LFTs 05/15: Total bilirubin 6.6, AST 42, ALT 22, alkaline phosphatase 132. Ammonia: 37. Vitamin B12: Greater than 2000. Folate: 60.60. TSH: 1.0. PERTINENT IMAGING: CT brain 04/23: No acute disease. CT cervical spine 04/23: Degenerative changes at C4-C5 with intervertebral disk space narrowing with mild canal stenosis. CT facial bones 04/23: No fracture. Multiple tiny mucous retention cyst in the right maxillary sinus. Chest x-ray 04/23: No evidence of acute disease. Vascular ultrasound 04/24: No evidence of DVT. Chest x-ray 04/27: Right lower lobe infiltrate. CT brain 04/27: no evidence of acute abnormality. Abdominal ultrasound 04/27: No significant ascites. CT chest, abdomen, and pelvis, 05/02: Consolidation in the posterior right lung base. Cardiomegaly. There is a left renal cyst lesion, which is 2.3 cm. Splenomegaly with varices in the left upper quadrant and associated splenorenal shunt. There is also hepatic cyst and renal cyst. Brain MRI 05/03: Subtle T2 and FLAIR hyperintensity without restricted diffusion involving the dorsal, medial thalami, mamillary bodies peripheral to the 3rd ventricle and periaqueductal carrillo matter. Shoulder x-ray 05/12: No acute osseous abnormality. Cervical spine MRI 05/12: Spondylosis centered at C4-C5 and C6-C7 with anterior cord abutment by disk osteophyte complex at C4-C5 and disk protrusion at C6-C7. Brain MRI 05/12: Findings of chronic alcoholic encephalopathy along with hepatic dysfunction with acquired hepatocerebral degeneration. DISCHARGE CONDITION: Stable. ACTIVITY: As tolerated. DIET: Heart healthy diet with a 2 L fluid restriction. Also low-protein diet. DISCHARGE MEDICATIONS: 1. Keflex 500 mg p.o. q.i.d. until 05/21 2. Fluconazole 100 mg p.o. daily. 3. Gabapentin 300 mg p.o. t.i.d. 4. Multivitamin one tablet p.o. daily. 5. Protonix 40 mg p.o. b.i.d. 6. Spironolactone 25 mg p.o. daily. 7. Sucralfate 1 g p.o. q.i.d. p.r.n. 8. Thiamine 100 mg p.o. daily. DISCHARGE INSTRUCTIONS: The patient should follow up with Dr. Oliveira in a month for his headaches if it is persistent. Follow up with Neurosurgery for neck arthritis if needed. He should follow 1.8 L fluid restriction. Get a repeat BMP in a week. The patient should follow up with Dr. Velázquez in 2 to 3 weeks for cirrhosis and have repeat LFTs done in a week. Also have liver and kidney cysts followed up. Consider following up with Dr. Shane after completion of antibiotics. Job ID: [id number] [facility]
--- NOTE | 2020-05-17 05:57 | PQF ---
Dear : Stacey Francois Date : 05/17/20 Please exercise your independent, professional judgment in responding to the clarification form. Clinical indicators are provided on the bottom of this form for your review Please check appropriate box(es): [ ] Traumatic Rhabdomyolysis [ ] Meningitis [ X ] Other diagnosis please specify Diagnoses as mentioned in Dc summary. Rhabdomyolysis, possible meningitis____ [ ] Unable to determine To be completed by CDI/Coding staff for physician review: Present Clinical Indicators - Signs / Symptoms / Labs Results and Location in Medical Record [ x ] Possible meningitis/cervicogenic headache DS pg.2 [ x ] Presented to ER due to generalized weakness DS pg.1 [ x ] Severe weakness 2/2 rhabdomyolysis DS pg.1 [ x ] LP could not be done due to INR of 2.7 DS pg.1 [ x ] Patient with some improvement of headache Hospitalist PN 04/25 pg.1 [ x ] Patient confused. Had fevre yesterday Hospitalist PN 04/27 pg.1 [ x ] Presents for evaluation of fall,symptoms are generalized, pain dull in nature associated with neck pain, moderate paraspinal ED Provider pg.1 [ x ] Sepsis secondary to strep bactremia, possible meningitis DS 05/15 [ x ] WBC: 04/23=8.8 05/07=4.0 05/15=3.8 Labs 04/23 Present Risk Factors Results and Location in Medical Record [ x ] Alcohol abuse H and P pg.3 [ x ] Alcoholic cirrhosis H and P pg.3 [ x ] DM H and P pg.4 [ x ] HTN H and P pg.4 [ x ] Malnutrition Hospitalist PN pg.4 [ x ] Metabolic encephalopathy Hospitalist PN pg.5 [ x ] concussion Hospitalist PN pg.5 [ x ] Sepsis DS 05/15 [ x ] Multiple fall DS 05/15 Present Treatments Results and Location in Medical Record [ x ] IV Fluids DEC 15 [ x ] Cervical spine CT Cervical spine CT 04/23 [ x ] BRAIN CT BRAIN CT 04/23 [ x ] Neurology Consult Dr. Ugarte 05/01 [ x ] Infectious consult Dr. Shane 05/03 [ x ] Brain MRI Collected 05/03 [ x ] IV Cefriazone 2gm DEC 15 [ x ] Oral kefex 500mg DEC 15 [ x ] Azithromycin 500mg IV DEC 15 [facility] Therapist Signature: Dusty Luna Phone #: [phone] Date: 05/17/20 This is a permanent part of the Medical Record [facility]
== END 2020-05-15 17:48 | disposition home or self-care (01) | DRG 97 ==
LOC: ERS 23:25 → ERHOLD 04-24 01:54 → 2NO 04-24 16:15 → T4-B 04-30 15:51
PROVIDERS: ADMIT Internal Medicine; ATTEND Internal Medicine
PROC: HZ2ZZZZ Detoxification Services for Substance Abuse Treatment (ICD-10-PCS; principal; 2020-04-24)
PROC: 0DB98ZX Excision of Duodenum, Via Natural or Artificial Opening Endoscopic, Diagnostic (ICD-10-PCS; 2020-05-15)
PROC: 0DB78ZX Excision of Stomach, Pylorus, Via Natural or Artificial Opening Endoscopic, Diagnostic (ICD-10-PCS; 2020-05-15)
PROC: 0DB58ZX Excision of Esophagus, Via Natural or Artificial Opening Endoscopic, Diagnostic (ICD-10-PCS; 2020-05-15)
DX: G03.9 Meningitis, unspecified (principal); J96.01 Acute respiratory failure with hypoxia; G93.41 Metabolic encephalopathy; A40.1 Sepsis due to streptococcus, group B; E51.2 Wernicke's encephalopathy; S02.0XXA Fracture of vault of skull, initial encounter for closed fracture; S06.0X9A Concussion with loss of consciousness of unspecified duration, initial encounter; E87.1 Hypo-osmolality and hyponatremia; E44.0 Moderate protein-calorie malnutrition; N17.9 Acute kidney failure, unspecified; K76.6 Portal hypertension; D61.818 Other pancytopenia; T79.6XXA Traumatic ischemia of muscle, initial encounter; K70.30 Alcoholic cirrhosis of liver without ascites; E11.9 Type 2 diabetes mellitus without complications; I10 Essential (primary) hypertension; F41.9 Anxiety disorder, unspecified; F32.9 Major depressive disorder, single episode, unspecified; F17.210 Nicotine dependence, cigarettes, uncomplicated; F10.20 Alcohol dependence, uncomplicated; R29.6 Repeated falls; W19.XXXA Unspecified fall, initial encounter; E87.6 Hypokalemia; E83.42 Hypomagnesemia; D50.9 Iron deficiency anemia, unspecified; D73.1 Hypersplenism; G31.2 Degeneration of nervous system due to alcohol; K31.89 Other diseases of stomach and duodenum; K12.30 Oral mucositis (ulcerative), unspecified; R13.10 Dysphagia, unspecified; M25.512 Pain in left shoulder; Z88.0 Allergy status to penicillin; Z88.1 Allergy status to other antibiotic agents; Z88.8 Allergy status to other drugs, medicaments and biological substances; Z79.84 Long term (current) use of oral hypoglycemic drugs; Z79.899 Other long term (current) drug therapy; Z68.24 Body mass index [BMI] 24.0-24.9, adult; G44.89 Other headache syndrome
CPT/HCPCS: 36415; 36416; 70450; 70486; 70551; 70553; 71045; 71260; 72125; 72141; 74177; 76705; 80048; 80053; 80074; 80306; 80307; 81003; 81015; 82140; 82550; 82553; 82607; 82746; 83605; 84443; 84484; 85025; 85027; 85610; 85730; 86140; 86769; 87040; 87077; 87149; 87186; 87389; 88305; 88312; 88313; 93005; 93306; 95712; 95816; 95819; 95957; 96361; 96365; 96375; A9579; J0456; J0696; J1450; J1815; J1885; J2060; J2270; J2704; J3411; J3486; J3490; J7042; J7050; J8540; Q0163; Q9967; U0002

== ENCOUNTER 2020-07-25 21:42 | Inpatient (IN) | payer OTHER ==
[2020-07-25 22:26] LABS: #Lymphocytes 0.9 thou/uL (1.20-3.40); #Monocytes 0.7 thou/uL (0.11-0.59); #Neutrophils 3.5 thou/uL (1.40-6.50); %Basophils 0.5 % (0.0-1.0); %Eosinophils 0.4 % (0.0-10.0); %Monocytes 13.9 % (0.0-10.0); %Neutrophils 68.2 % (42.0-75.0); Hemoglobin 7.6 g/dL (14.0-18.0); Mean Corpuscular HGB CONC 28.8 g/dL (32.0-36.0); Mean Corpuscular Hemoglobin 20.5 pg (27.0-31.0); Mean Corpuscular Volume 71.2 fL (78.0-98.0); Mean Platelet Volume 7.5 fL (7.4-10.4); Platelet Count 85 thou/uL (130-400); RBC Distribution Width 18.7 % (11.5-14.5); Red Blood Cell (RBC) Count 3.68 mill/uL (4.70-6.10); White Blood Cell (WBC) Count 5.1 thou/uL (4.8-10.8)
[2020-07-25] MEDS ORDERED: Ondansetron PF 4 MG/2 ML Vial ONE (22:35)
[2020-07-25 22:52] LABS: ALT (SGPT) 22 U/L (8-55); AST (SGOT) 36 U/L (5-34); Albumin 2.9 g/dL (3.5-5.0); Alkaline Phosphatase 165 U/L (40-110); Anion Gap 15 mmol/L (10-20); BUN (Urea Nitrogen) 8 mg/dL (8.4-25.7); Bilirubin, Total 7.2 mg/dL (0.2-1.2); Calc. Creatinine Clearance 0 mL/min (70-130); Calcium 9.2 mg/dL (7.8-10.44); Carbon Dioxide 19 mmol/L (22-29); Chloride 96 mmol/L (98-107); Estimated GFR-MDRD Greater than 90; Globulin 4.1 g/dL (2.4-3.5); Glucose 132 mg/dL (70-105); Lipase 23 U/L (8-78); Sodium 126 mmol/L (136-145)
--- NOTE | 2020-07-26 00:42 | PDOC.HHP ---
Hospitalist HPI - History of Present Illness Nausea and vomiting History of Present Illness: 50-year-old gentleman with a history of diabetes, alcoholic liver cirrhosis presented to the emergency department with a complaint of nausea and vomiting of 2 days duration. Patient reports he has not been able to hold any food or drink. He denied any abdominal pain but endorsed diarrhea. He denied any hematemesis or melena or hematochezia. He has a history of perforated peptic ulcer disease status post omental patch and subsequently resection. He is on nadolol for portal hypertension. Patient reported fever up to 101.3 at home. Fever of 100.3 was recorded in the ED. chest x-ray demonstrated no acute intrathoracic disease. Patient has no leukocytosis and does not meet criteria for sepsis. He has hyponatremia with sodium level of 126 and anemia with a hemoglobin of 7.6. Total bilirubin is up to 7.2. Patient is admitted for further management. Hospitalist ROS - Review of Systems Other: Patient denied any chest pain or abdominal pain. Except as documented, all other systems reviewed and negative. - Medication Medications: Medication Instructions Recorded Confirmed Type metFORMIN HCl 1,000 mg PO BID- 11/15/13 07/26/20 History BuPROPion XL [Wellbutrin XL] 150 mg PO DAILY 07/26/20 07/26/20 History Gabapentin 300 mg PO DAILY 07/26/20 07/26/20 History Nadolol 20 mg PO DAILY 07/26/20 07/26/20 History Potassium Chloride [Klor-Con 10] 10 meq PO DAILY 07/26/20 07/26/20 History Spironolactone 50 mg PO BID 07/26/20 07/26/20 History Hospitalist History - Past Medical History Endocrine: reports: Diabetes Other Medical History: Obstructive sleep apnea, hypertension, hyperlipidemia, obesity, hyponatremia, alcohol liver cirrhosis, anxiety and depression - Past Surgical History Past Surgical History: reports: Hernia Repair Other Surgical History: Uvula surgery, back surgery, cervical spine surgery, endoscopy, omental patch for perforated peptic ulcer. - Family History Other Family History: Father had hypertension and diabetes. - Social History Smoking Status: Former smoker Alcohol: reports: Heavy (Used to drink heavily but quit drinking 4 months ago.) Drugs: reports: none - Exam General Appearance: NAD, awake alert Eye: PERRL, scleral icterus ENT: normocephalic atraumatic, no oropharyngeal lesions, moist mucosa Neck: supple, symmetric, no JVD Heart: RRR, no murmur, no gallops Respiratory: CTAB, no wheezes, no rales, no ronchi Gastrointestinal: soft, non-tender, non-distended, normal bowel sounds, no hepatomegaly, no splenomegaly Extremities: no cyanosis, 1+ LE edema Extremities - other findings: Bilateral lower extremities, worse on the left. Skin: normal turgor, no rashes Neurological: cranial nerve grossly intact, no weakness, no focal deficits Musculoskeletal: normal tone, normal strength Psychiatric: normal affect, normal behavior, A&O x 3 Hospitalist Results - Labs Result Diagrams: 07/25/20 Unknown 07/25/20 Unknown Lab results: WBC 5.1 thou/uL (4.8-10.8) 07/25/20 Unknown Hgb 7.6 g/dL (14.0-18.0) L 07/25/20 Unknown Hct 26.2 % (42.0-52.0) L 07/25/20 Unknown MCV 71.2 fL (78.0-98.0) L 07/25/20 Unknown Plt Count 85 thou/uL (130-400) L 07/25/20 Unknown Neutrophils % 68.2 % (42.0-75.0) 07/25/20 Unknown Sodium 126 mmol/L (136-145) L 07/25/20 Unknown Potassium 4.0 mmol/L (3.5-5.1) 07/25/20 Unknown Chloride 96 mmol/L (98-107) L 07/25/20 Unknown Carbon Dioxide 19 mmol/L (22-29) L 07/25/20 Unknown BUN 8 mg/dL (8.4-25.7) L 07/25/20 Unknown Creatinine 0.80 mg/dL (0.7-1.3) 07/25/20 Unknown Glucose 132 mg/dL (70-105) H 07/25/20 Unknown Calcium 9.2 mg/dL (7.8-10.44) 07/25/20 Unknown Total Bilirubin 7.2 mg/dL (0.2-1.2) H 07/25/20 Unknown AST 36 U/L (5-34) H 07/25/20 Unknown ALT 22 U/L (8-55) 07/25/20 Unknown Alkaline Phosphatase 165 U/L (40-110) H 07/25/20 Unknown Troponin I 0.023 ng/mL (< 0.028) 07/25/20 Unknown Serum Total Protein 7.0 g/dL (6.0-8.3) 07/25/20 Unknown Albumin 2.9 g/dL (3.5-5.0) L 07/25/20 Unknown Lipase 23 U/L (8-78) 07/25/20 Unknown - Radiology Interpretation Chest x-ray Status: image reviewed by me (No acute intrathoracic process.) Hospitalist H&P A/P - Problem (1) Intractable nausea and vomiting Code(s): R11.2 - NAUSEA WITH VOMITING, UNSPECIFIED Status: Acute (2) History of peptic ulcer disease Code(s): Z87.11 - PERSONAL HISTORY OF PEPTIC ULCER DISEASE Status: Acute (3) Cirrhosis, alcoholic Code(s): K70.30 - ALCOHOLIC CIRRHOSIS OF LIVER WITHOUT ASCITES Status: Chronic Qualifiers: Ascites presence: without ascites Qualified Code(s): K70.30 - Alcoholic cirrhosis of liver without ascites (4) DM type 2 (diabetes mellitus, type 2) Status: Chronic Qualifiers: Diabetes mellitus terminal operator insulin use: without terminal operator use Diabetes mellitus complication status: without complication Qualified Code(s): E11.9 - Type 2 diabetes mellitus without complications (5) Microcytic anemia Code(s): D50.9 - IRON DEFICIENCY ANEMIA, UNSPECIFIED Status: Chronic (6) Hyponatremia Code(s): E87.1 - HYPO-OSMOLALITY AND HYPONATREMIA Status: Resolved - Plan Plan: Admit to the medical floor. Obtain blood cultures, urinalysis with reflex culture Start broad-spectrum antibiotics-IV Levaquin. Intractable nausea and vomiting could be related to infection or peptic ulcer disease Trial of IV Protonix. Antiemetics as needed. Patient is euvolemic. Hyponatremia could be secondary to sodium loss through vomiting and reduced intake. IV hydration with normal saline to treat hyponatremia. Monitor volume status closely to avoid volume overload. Monitor CBC, transfuse PRN for hemoglobin less than 7. Check stool for occult blood. Continue nadolol for portal hypertension. GI consult.
[2020-07-26] MEDS ORDERED: Sodium Chloride 0.9% (PF) 10 ML VIAL FS PRN (00:45)
[2020-07-26 02:31] VITALS: BMI 26.9
[2020-07-26] MEDS: Sodium Chloride 0.9% 1,000 ML IV SCH ×2 (02:44→14:11)
[2020-07-26] MEDS ORDERED: Ondansetron PF 4 MG/2 ML Vial IVP PRN (06:05)
[2020-07-26 06:18] LABS: ALT (SGPT) 20 U/L (8-55); AST (SGOT) 28 U/L (5-34); Albumin 2.4 g/dL (3.5-5.0); Alkaline Phosphatase 121 U/L (40-110); Anion Gap 11 mmol/L (10-20); BUN (Urea Nitrogen) 9 mg/dL (8.4-25.7); Bilirubin, Total 5.9 mg/dL (0.2-1.2); Calc. Creatinine Clearance 157 mL/min (70-130); Calcium 8.3 mg/dL (7.8-10.44); Carbon Dioxide 20 mmol/L (22-29); Chloride 99 mmol/L (98-107); Estimated GFR-MDRD Greater than 90; Globulin 3.2 g/dL (2.4-3.5); Glucose 157 mg/dL (70-105); Potassium 3.9 mmol/L (3.5-5.1); Protein, Total 5.6 g/dL (6.0-8.3); Sodium 126 mmol/L (136-145)
[2020-07-26] MEDS: Pantoprazole 40 MG VIAL IVP SCH ×2 (06:19→20:13)
[2020-07-26 06:24] LABS: Band 12 % (5-11); Hemoglobin 6.2 g/dL (14.0-18.0); Lymphocytes 19 % (21-51); MDiff Complete? YES; Mean Corpuscular HGB CONC 28.8 g/dL (32.0-36.0); Mean Corpuscular Hemoglobin 20.3 pg (27.0-31.0); Mean Corpuscular Volume 70.6 fL (78.0-98.0); Mean Platelet Volume 6.4 fL (7.4-10.4); Monocytes 7 % (0-10); Neutrophil 62 % (42-75); Platelet Count 68 thou/uL (130-400); Platelet Morphology Comment Appears Decreased; RBC Distribution Width 18.2 % (11.5-14.5); Red Blood Cell (RBC) Count 3.04 mill/uL (4.70-6.10); White Blood Cell (WBC) Count 3.9 thou/uL (4.8-10.8)
--- NOTE | 2020-07-26 07:07 | RAD ---
PORTABLE CHEST: Date: 07/25/2020 HISTORY: Cough, nausea, and vomiting. COMPARISON: 04/24/2020 exam. FINDINGS: Heart size appears borderline considering portable technique. Mediastinal structures are unremarkable . Lungs are clear of any infiltrates. No signs of failure. IMPRESSION: Borderline heart size. POS: ULISSES
--- NOTE | 2020-07-26 07:47 | CT ---
PRELIMINARY REPORT/[facility]/EMERGENCY AFTER HOURS PROCEDURE: EXAM: CT Abdomen and Pelvis with Intravenous Contrast CLINICAL HISTORY: PT REPORTS N/V AND INABILITY TO KEEP ANYTHING DOWN FOR THE PAST FEW DAYS, PT ALSO R EPORTS FATIGUE AND DIARRHEA. Surgical history of hernia repair, BACK SX. NECK SX. RUPTURED ULCER REPAIR. TECHNIQUE: Axial computed tomography images of the abdomen and pelvis with intravenous contrast. CONTRAST: With; ISOVUE 370, 95 ML COMPARISON: CTSR - CT CHEST ABD PELVIS W CON - 05/02/2020 06:43 PM CDT FINDINGS: LUNG BASES: No basilar airspace consolidation or pleural effusion. LIVER: Cirrhotic morphology of the liver. Posterior right hepatic lobe low-density lesion measuring 1 .5 cm (series 2 image 30) unchanged from prior. Superior right hepatic lobe low-density lesion measuring 1.3 cm (series 2 image 15) unchanged from prior. Small volume ascites around the liver. GALLBLADDER AND BILE DUCTS: The gallbladder is surgically absent. PANCREAS: Unremarkable. SPLEEN: Splenomegaly. ADRENAL GLANDS: Unremarkable. KIDNEYS, URETERS, AND BLADDER: 2.4 cm low-density lesion arising from the posterior upper pole of the left kidney unchanged from prior. 1.6 cm low-density lesion suggested at the interpolar right kidney (series 2 image 45). No renal stones or hydronephrosis. STOMACH AND BOWEL: No evidence of bowel obstruction. There are multiple fluid-filled loops of small b owel with enhancement and bowel wall thickening suggested. APPENDIX: No CT evidence for appendicitis. PERITONEUM: No free fluid. No free air. LYMPH NODES: No lymphadenopathy. REPRODUCTIVE: Unremarkable as visualized. VASCULATURE: There are multiple splenorenal varices. BONES: Mild degenerative changes of the lumbar spine. No acute fractures or worrisome osseous lesions . ABDOMINAL WALL AND SOFT TISSUES: Unremarkable. MISCELLANEOUS: Left ventricular enlargement. IMPRESSION: 1. Fluid-filled loops of small bowel with mild bowel thickening and enhancement. Although nonspecific , this suggests possible acute enteritis. No evidence of obstruction. 2. Cirrhosis with sequelae of portal hypertension to include mild perihepatic ascites and splenorenal varices. 3. Left ventricular enlargement. 4. Additional chronic findings as above without significant change from prior. ELECTRONICALLY SIGNED BY: Javier Be M.D. Jul 26, 2020 1:06:00 AM CDT FINAL REPORT EXAM: CT ABDOMEN AND PELVIS HISTORY: Nausea. Vomiting. COMPARISON: 05/02/2020. Procedure: Multiple contiguous axial images were obtained and a CT of the abdomen and pelvis with IV contrast. C oronal reformats were performed. FINDINGS: Lower Chest: Within normal limits. Vessels: Normal caliber aorta. No periaortic fat stranding . Heart: Cardiomegaly. There are coronary calcifications. Abdomen: Portal vein:Patent. Extensive gastroesophageal and splenic varices. Gallbladder: Surgically absent. Liver: Mild nodularity suggesting cirrhotic change. There are 2 right hepatic lobe hypodensities, unc hanged. Pancreas: within normal limits. Spleen: within normal limits. Adrenals: within normal limits. Kidneys: Symmetric enhancement. No obstructive uropathy. Indeterminate 2.3 cm exophytic hypodensity e manating from the left renal cortex. Peritoneum: No free air or loculated fluid collection. Trace amount of mesenteric edema. Trace amount of perihepatic and perisplenic fluid. Bowel: There is extensive mucosal thickening. The possibility of enteritis cannot be excluded. No joão dence of bowel dilatation or distention. Normal-appearing ileocecal junction. Decompressed colon. Occasional diverticulum. No diverticulitis. Focal rectal wall thickening. Mesentery and Retroperitoneum: No enlarged mesenteric or retroperitoneal lymph nodes. Abdominal Wall: within normal limits. Pelvis: Reproductive Organs: Reproductive organs are unremarkable. Pelvis: No mass, lymphadenopathy, free air or free fluid. Bladder: within normal limits. Bones: within normal limits. IMPRESSION: 1. Cirrhosis. There is evidence of mesenteric edema, bowel wall edema and a small amount of fluid in the paracolic gutters suggesting third spacing. 2. Extensive gastroesophageal varices. 3. Focal edema involving the high rectum. Colonoscopy is recommended. 4. This report is essentially in agreement with initial report by [facility]. Results of the study discussed with Dr. Aceves 07/26/2020 at 8:17 AM Code CR Transcribed Date/Time: 07/26/2020 7:59 AM
[2020-07-26] MEDS ORDERED: Iopamidol-370 76% 500 ML 1 ML ONE (09:35)
[2020-07-26 12:01] LABS: Bacteria/HPF None Seen HPF (None Seen); Bilirubin Negative (Negative); Blood, Urine 1+ (Negative); Clarity Clear (Clear); Glucose, Urine (Dipstick) Normal (Negative); Ketone, Urine Negative (Negative); Leukocyte Negative Leu/uL (Negative); Nitrite Negative (Negative); Protein, Urine (Dipstick) 10 mg/dL (Neg-Trace); Specific Gravity, Urine 1.048 (1.002-1.036); Squamous Epithelial 0-3 HPF (0-3); Urobilinogen 6 mg/dL (Less than 2); WBC/HPF 0-3 HPF (0-3)
[2020-07-26 12:04] LABS: Urine Culture Reflex No No
[2020-07-26 13:02] LABS: SARS-CoV-2 MS2 Positive; SARS-CoV-2 N Gene Negative; SARS-CoV-2 S Gene Negative; SARS-CoV-2 by NAA Not Detected (NotDetected); SARS-CoV-2 orf1ab Negative
[2020-07-26] MEDS: Melatonin 3 MG TAB PO PRN (20:14)
[2020-07-26] MEDS ORDERED: FLU VACC QS2020-21(6MOS UP)/PF 60 MCG/0.5 ML SYRINGE IM ONE (21:00)
[2020-07-27] MEDS: Pantoprazole 40 MG VIAL IVP SCH ×2 (08:21→20:04)
[2020-07-27 08:53] LABS: ALT (SGPT) 18 U/L (8-55); AST (SGOT) 24 U/L (5-34); Albumin 2.5 g/dL (3.5-5.0); Alkaline Phosphatase 131 U/L (40-110); Anion Gap 10 mmol/L (10-20); BUN (Urea Nitrogen) 9 mg/dL (8.4-25.7); Bilirubin, Total 5.8 mg/dL (0.2-1.2); Calc. Creatinine Clearance 149 mL/min (70-130); Calcium 8.2 mg/dL (7.8-10.44); Carbon Dioxide 18 mmol/L (22-29); Chloride 101 mmol/L (98-107); Estimated GFR-MDRD Greater than 90; Globulin 3.4 g/dL (2.4-3.5); Glucose 233 mg/dL (70-105); Potassium 3.5 mmol/L (3.5-5.1); Protein, Total 5.9 g/dL (6.0-8.3); Sodium 125 mmol/L (136-145)
[2020-07-27 08:59] LABS: Anisocytosis SLIGHT = 6-15 cells (100X) (0-5/hpf); Band 2 % (5-11); Burr Cells SLIGHT = 2-5 cells (100X) (0-1/hpf); Elliptocytes SLIGHT = 2-5 cells (100X) (0-1/hpf); Eosinophils 2 % (0-10); Hemoglobin 6.6 g/dL (14.0-18.0); Hypersemented Neutrophil SLIGHT; Hypochromia MODERATE=16-30 cells (100X) (0-5/hpf); Lymphocytes 13 % (21-51); MDiff Complete? YES; Mean Corpuscular HGB CONC 28.3 g/dL (32.0-36.0); Mean Corpuscular Hemoglobin 20.1 pg (27.0-31.0); Mean Platelet Volume 10.8 fL (7.4-10.4); Monocytes 14 % (0-10); Neutrophil 68 % (42-75); Platelet Count 64 thou/uL (130-400); Platelet Morphology Comment Appears Decreased; Poikilocytosis SLIGHT = 6-15 cells (100X) (0-5/hpf); RBC Distribution Width 18.2 % (11.5-14.5); Red Blood Cell (RBC) Count 3.26 mill/uL (4.70-6.10); Schistocytes SLIGHT = 2-5 cells (100X) (0-1/hpf); Target Cells SLIGHT = 2-5 cells (100X) (0-1/hpf); White Blood Cell (WBC) Count 4.2 thou/uL (4.8-10.8)
[2020-07-27] MEDS ORDERED: Non-Formulary Item 1 EACH (Nadolol [Nadolol] 20 MG Tablet) PO SCH (09:15)
[2020-07-27] MEDS ORDERED: Spironolactone 25 MG TAB PO SCH (09:15)
[2020-07-27] MEDS ORDERED: metFORMIN 500 MG TAB PO SCH (09:15)
[2020-07-27] MEDS ORDERED: Sodium Bicarbonate Tab 325 MG TAB PO SCH (10:00)
[2020-07-27] MEDS: Bupropion 150 MG XL TAB PO SCH (10:29)
[2020-07-27] MEDS: Gabapentin 300 MG CAP PO SCH (10:29)
[2020-07-27] MEDS: Nadolol 40 MG TAB PO SCH (10:30)
[2020-07-27] MEDS ORDERED: Dextrose 5% in Water 1,000 ML IV PRN (10:58)
[2020-07-27] MEDS ORDERED: Dextrose 50% Abboject 50 ML SYRINGE SLOW IVP PRN (10:58)
[2020-07-27 12:18] LABS: Iron Binding Capacity, Total 280 mcg/dL (261-462)
[2020-07-27 12:19] LABS: Iron 12 ug/dL (65-175)
[2020-07-27] MEDS: HumaLOG 300 UNITS/3 ML VIAL SC PRN (13:59)
--- NOTE | 2020-07-27 14:05 | PDOC.HOSPP ---
- Subjective Encounter Date: 07/27/20 Encounter Time: 12:00 Subjective: Patient seen for follow-up regarding hyponatremia. Denies chest pain or shortness of breath. Reports that he did not vomit since yesterday. - Objective Vital Signs & Weight: Vital Signs (12 hours) Temp Pulse Resp BP Pulse Ox 07/27/20 11:36 98.7 F 68 17 100/45 L 95 07/27/20 07:58 98.3 F 89 17 119/51 L 96 07/27/20 03:46 98.3 F Weight Admit Weight 204 lb Weight 204 lb I&O: 07/26/20 07/27/20 07/28/20 06:59 06:59 06:59 Intake Total 800 2600 0 Balance 800 2600 0 Result Diagrams: 07/27/20 08:13 07/27/20 08:12 Additional Labs: Accuchecks 07/27/20 07/26/20 07/26/20 11:40 20:22 16:41 POC Glucose 210 H 147 H 210 H I reviewed patient's labs and MAR Hospitalist ROS - Review of Systems Cardiovascular: denies: chest pain, palpitations, orthopnea, paroxysmal noc. dyspnea, edema, light headedness Gastrointestinal: denies: nausea, vomiting, abdominal pain, diarrhea, constipation, melena, hematochezia - Medication Medications: Active Medications Generic Name Dose Route Start Last Admin Trade Name Freq PRN Reason Stop Dose Admin Bupropion HCl 150 mg 07/27/20 09:00 07/27/20 10:29 Bupropion 150 Mg Xl Tab PO 150 mg Q24HR HARPREET Administration Gabapentin 300 mg 07/27/20 09:00 07/27/20 10:29 Gabapentin 300 Mg Cap PO 300 mg Q24HR HARPREET Administration Levofloxacin 750 mg/ Device 150 mls @ 100 mls/hr 07/26/20 01:00 07/27/20 00:02 IVPB 150 mls Q24HR HARPREET Administration Melatonin 3 mg 07/26/20 18:32 07/26/20 20:14 Melatonin 3 Mg Tab PO 3 mg HS PRN Administration Insomnia Nadolol 20 mg 07/27/20 09:00 07/27/20 10:30 Nadolol 40 Mg Tab PO 20 mg DAILY HARPREET Administration Ondansetron HCl 4 mg 07/26/20 06:05 07/26/20 06:17 Ondansetron Pf 4 Mg/2 Ml Vial IVP 4 mg Q6H PRN Administration Nausea/Vomiting Pantoprazole Sodium 40 mg 07/26/20 09:00 07/27/20 08:21 Pantoprazole 40 Mg Vial IVP 40 mg Q12HR HARPREET Administration - Exam General Appearance: awake alert Eye: scleral icterus ENT: moist mucosa Neck: supple Heart: RRR Respiratory: CTAB Gastrointestinal: soft, non-tender Skin: no rashes Psychiatric: normal affect, normal behavior Hosp A/P - Plan -Assessment (1) Hyponatremia Code(s): E87.1 - HYPO-OSMOLALITY AND HYPONATREMIA Status: Acute (2) Microcytic anemia Code(s): D50.9 - IRON DEFICIENCY ANEMIA, UNSPECIFIED Status: Acute (3) Bacteremia Status: Acute (4) Cirrhosis, alcoholic Code(s): K70.30 - ALCOHOLIC CIRRHOSIS OF LIVER WITHOUT ASCITES Status: Chronic Qualifiers: Ascites presence: without ascites Qualified Code(s): K70.30 - Alcoholic cirrhosis of liver without ascites (5) History of peptic ulcer disease Code(s): Z87.11 - PERSONAL HISTORY OF PEPTIC ULCER DISEASE Status: Chronic (6) DM type 2 (diabetes mellitus, type 2) Status: Chronic Qualifiers: Diabetes mellitus senior living insulin use: without senior living use Diabetes mellitus complication status: without complication Qualified Code(s): E11.9 - Type 2 diabetes mellitus without complications (7) Intractable nausea and vomiting Code(s): R11.2 - NAUSEA WITH VOMITING, UNSPECIFIED Status: Resolved - Plan 2 out of 2 blood cultures are growing Staphylococcus aureus, add IV linezolid. Follow blood cultures. Patient's hemoglobin dropped to 6.6 today, transfuse 1 unit of packed RBC and recheck H&H. Plan is for colonoscopy tomorrow. Antiemetics as needed. Patient is euvolemic. Hyponatremia could be secondary to sodium loss through vomiting and reduced intake. Nephrology consulted for hyponatremia. Monitor volume status closely to avoid volume overload.
--- NOTE | 2020-07-27 16:15 | CON ---
DATE OF CONSULTATION: 07/27/2020 SERVICE: Nephrology. REASON FOR CONSULTATION: Hyponatremia. REQUESTING PHYSICIAN: Herson Aceves MD CHIEF COMPLAINT: Intractable nausea and vomiting as well as fever. HISTORY OF PRESENT ILLNESS: A 50-year-old male patient with known alcoholic liver cirrhosis as well as diabetes is admitted due to intractable nausea and vomiting associated with fever. The patient was admitted for further evaluation and treatment. He was started on broad-spectrum antibiotics for presumed sepsis of unclear etiology. He was also found to have a hyponatremia, hence Nephrology consult. The patient denied hematemesis, hematochezia, dysuria, hematuria, abdominal distention, leg swelling, cough, or shortness of breath. PAST MEDICAL HISTORY: 1. Diabetes mellitus. 2. Obstructive sleep apnea. 3. Hypertension. 4. Hyperlipidemia. 5. Chronic hyponatremia. 6. Alcoholic liver cirrhosis. 7. Anxiety and depression. PAST SURGICAL HISTORY: 1. Hernia repair. 2. Uvula surgery. 3. Back surgery. 4. Cervical spine surgery. 5. EGD. 6. Omental patch for perforated peptic ulcer. FAMILY HISTORY: Significant for hypertension and diabetes mellitus. SOCIAL HISTORY: The patient is a former heavy drinker. Used to drink a lot, but quit about 4 months ago. He also uses tobacco. He chews tobacco. Denied smoking. Also denied recreational drug use. ALLERGIES: PENICILLIN, VANCOMYCIN, PIPER INHIBITOR. PRIOR TO HOSPITAL MEDICATIONS: 1. Gabapentin 300 mg p.o. daily. 2. Potassium chloride 10 mEq p.o. daily. 3. Metformin 1000 mg p.o. b.i.d. 4. Nadolol 20 mg p.o. daily. 5. Spironolactone 50 mg p.o. b.i.d. 6. Bupropion 150 mg p.o. daily. REVIEW OF SYSTEMS: Twelve-point review of systems performed was negative other than pertinent positives and negatives included in the history of present illness. PHYSICAL EXAMINATION: VITAL SIGNS: Temperature 98.3, pulse 89, respiratory rate 17, SpO2 96% on room air, blood pressure is 119/51. T-max in the last 24 hours is 101. I and O in the last 24 hours showed total intake of 2600. Output was not documented. GENERAL: Young male, in no obvious distress. Icteric and fatigued. Afebrile to touch. HEENT: Normocephalic, atraumatic. Oral mucosa is mildly dry. NECK: Supple with no obvious JVD. CARDIOVASCULAR: Regular rhythm and rate with normal heart sounds 1 and 2. RESPIRATORY: Good air entry bilaterally with no crackle, rhonchi, or use of accessory muscles. GASTROINTESTINAL: Flat, soft, nontender, and nondistended with normal bowel sounds. EXTREMITIES: Grossly normal, looking atraumatic with no edema or erythema. CENTRAL NERVOUS SYSTEM: Conscious, alert, and oriented x3 with appropriate mental status. Cranial nerves 2 through 12 are grossly intact. He moves all extremities. DIAGNOSTIC DATA: CBC today showed WBC count of 4.2, hemoglobin of 6.6, MCV of 71, platelet of 64. On presentation, however, on July 25, WBC was 5.1, hemoglobin 7.6, and platelets 85. CMP today showed sodium 125, potassium 3.5, chloride 101, CO2 of 18, BUN 9, creatinine 0.77, glucose 233, calcium 8.2, total bilirubin 5.8, AST 24, ALT 18, alkaline phosphatase 131, total protein 5.9, albumin 2.5. On presentation on July 25, sodium was 126, potassium 4.0, chloride 96, CO2 of 19, BUN 8, creatinine 0.80. Total bilirubin was 7.2, albumin 2.9. Urinalysis on July 26 showed dark yellow clear urine with pH of 6.0, specific gravity of 1.048; negative ketone, nitrite, bilirubin, or leukocyte esterase. Microscopy showed 4 to 6 rbc's and 0 [address] scan of the abdomen with IV contrast performed on July 26 showed fluid-filled loops of small bowel with mild bowel thickening and enhancement, although nonspecific. This could suggest acute enteritis. No evidence of obstruction was noted. Liver cirrhosis with sequela of portal hypertension including mild perihepatic ascites and splenorenal varices were also noted. ASSESSMENT: 1. Hyponatremia: Acute worsening of chronic hyponatremia. The patient has intractable nausea and vomiting with poor oral intake. He looks clinically dry. There seems to be volume depletion with appropriate antidiuretic hormone secretion superimposed on 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 Urine specific gravity of 1.046 is consistent. 2. Metabolic acidosis: Most likely due to liver cirrhosis as well as abdominal pathology and sepsis. Use of metformin may be contributory. 3. Microcytic anemia: The patient has prior history of peptic ulcer disease with perforation, status post omental patch. Most likely related to gastrointestinal bleeding. 4. Acute drop in hemoglobin from 7.6 to 6.6: Due to correction of hemoconcentration related to volume depletion. 5. Volume depletion/dehydration. 6. Hyperbilirubinemia. 7. Sepsis of unclear etiology, given fever. PLAN: 1. We will start sodium bicarbonate therapy orally. We will also get urine and plasma osmolality as well as urine sodium. 2. We will also give potassium supplementation. 3. [place] oral intake advised. 4. IV fluids as well as albumin infusion is contemplated. 5. Further treatment to follow depending on review of other diagnostic tests and hospital course. Many thanks for involving us in the care of this patient. We will follow along with you. Job ID: [id number] [facility]
[2020-07-27] MEDS: metFORMIN 500 MG TAB PO SCH (16:43)
[2020-07-27] MEDS ORDERED: Furosemide 20 MG/2 ML VIAL SLOW IVP SCH (16:45)
--- NOTE | 2020-07-27 16:49 | RAD ---
Portable frontal chest radiograph: 07/27/2020 COMPARISON: 07/25/2020 HISTORY: Shortness of breath FINDINGS: Stable prominence of the cardiac silhouette. Pulmonary vascular congestion is noted. Mild i ncreased linear interstitial density noted in the perihilar regions, worsened on the left when compared to the prior exam. In addition, developing reticular nodular densities are suspected within the left lung base. No pneumothorax. No lobar consolidation. IMPRESSION: Pulmonary vascular congestion with asymmetric reticulonodular density in the left perihil ar region/left lung base. This may be on the basis of infectious pneumonitis or asymmetric edema. Recommend follow-up imaging following treatment to document resolution.
[2020-07-27] MEDS ORDERED: GoLYTELY 4,000 ml Bottle PO SCH (17:00)
[2020-07-27] MEDS: Sodium Bicarbonate Tab 325 MG TAB PO SCH ×2 (17:30→20:05)
[2020-07-27] MEDS ORDERED: Azithromycin 500 MG in Sodium Chloride 0.9% 250 ML 250 ML IVPB SCH (17:45)
--- NOTE | 2020-07-27 17:47 | PDOC.EVN ---
Event Note - Event Note Event Note: Pt seen for followup re: shortness of breath. RR24, pt is afebrile. SaO2 96% RA. S1, S2, reg. Bibasal crackles. CXR: Pneumonia versus pulmonary edema Continue levofloxacin. Patient has been started on linezolid for coag negative staphylococcal bacteremia in 2 out of 2 cultures. Check 2D echocardiogram to evaluate for source of infection.. Hold intravenous fluids. Patient received a dose of furosemide.
[2020-07-27] MEDS: Spironolactone 25 MG TAB PO SCH (20:05)
[2020-07-27] MEDS ORDERED: Non-Formulary Item 1 EACH (Spironolactone [Spironolactone] 50 MG Tablet) PO SCH (21:00)
[2020-07-27] MEDS: Linezolid 600 MG in Premix Bag 1 BAG IVPB SCH (21:17)
[2020-07-27] MEDS: Melatonin 3 MG TAB PO PRN (22:39)
[2020-07-28 06:53] LABS: Band 8 % (5-11); Hemoglobin 7.4 g/dL (14.0-18.0); Lymphocytes 34 % (21-51); MDiff Complete? YES; Mean Corpuscular HGB CONC 29.1 g/dL (32.0-36.0); Mean Corpuscular Hemoglobin 21.3 pg (27.0-31.0); Mean Platelet Volume 8.3 fL (7.4-10.4); Monocytes 13 % (0-10); Neutrophil 45 % (42-75); Platelet Count 75 thou/uL (130-400); Platelet Morphology Comment Appears Decreased; RBC Distribution Width 20.1 % (11.5-14.5); Red Blood Cell (RBC) Count 3.46 mill/uL (4.70-6.10); White Blood Cell (WBC) Count 4.7 thou/uL (4.8-10.8)
[2020-07-28 06:56] LABS: ALT (SGPT) 17 U/L (8-55); AST (SGOT) 27 U/L (5-34); Albumin 2.7 g/dL (3.5-5.0); Alkaline Phosphatase 117 U/L (40-110); Anion Gap 10 mmol/L (10-20); BUN (Urea Nitrogen) 11 mg/dL (8.4-25.7); Calc. Creatinine Clearance 151 mL/min (70-130); Carbon Dioxide 20 mmol/L (22-29); Chloride 101 mmol/L (98-107); Estimated GFR-MDRD Greater than 90; Globulin 3.4 g/dL (2.4-3.5); Glucose 115 mg/dL (70-105); Potassium 3.4 mmol/L (3.5-5.1); Protein, Total 6.1 g/dL (6.0-8.3); Sodium 128 mmol/L (136-145)
--- NOTE | 2020-07-28 07:29 | PRG ---
DATE OF SERVICE: 07/27/2020 SUBJECTIVE: male with anemia . The patient has history of perforated ulcer disease 4 years ago. The patient abdominal pain, hematochezia. anemia is microcytic. He has stool testing done for occult blood. Occult blood is . He offers no complaints. OBJECTIVE: GENERAL: He appears very comfortable in no acute distress. VITAL SIGNS: He is afebrile. His pulse is 68, blood pressure 100/45. CARDIOVASCULAR: LUNGS: ABDOMEN: Soft, . LABORATORY DATA: hemoglobin 6.6, hematocrit 23.2 . Chemistry panel, , sodium 125, , bilirubin 5.8, . CLINICAL IMPRESSION: 1. Anemia without any source of blood loss. 2. Duodenal ulcer . 3. Perforated pyloric channel ulcer, status post surgery. 4. Impaired hearing. PLAN: I did talk to Arnoldo about having an EGD explained to that he has . We will plan for EGD. Job ID: [id number]
[2020-07-28] MEDS ORDERED: Ketamine 50 MG/ML (10ML VIAL) ONE (08:14)
--- NOTE | 2020-07-28 09:47 | CON ---
DATE OF CONSULTATION: 07/26/2020 REASON FOR CONSULTATION: Nausea and vomiting. The patient for the last 48 hours. HISTORY: Arnoldo Crowley is a 50-year-old male, hospitalized with history of some fever for two days and nausea and vomiting. He has no abdominal pain. He stomach, unable keep anything down. He has been constantly throwing up. He also has some fever of 102 degrees Fahrenheit as an outpatient. The patient had no coughing, sore throat, or . The patient is hard of hearing. The patient appears very comfortable. He has had no nausea or vomiting today. Last time, he vomited was last night. I did speak to his nurse Abdoul, who tells me he had . The patient has a complicated medical history. The patient had a perforated pyloric channel ulcer in 2015, and had surgery by Dr. Koenig. The patient , I believe, couple of months ago, was seen by Dr. Reinier Velázquez, and the patient underwent EGD by Dr. Dakota Harper in May of 2020 and was found to have small ulcer in the duodenal bulb . The patient has done well since last discharge. He comes in with basically nausea and vomiting. . The patient is feeling better today and tolerating diet. MEDICAL ILLNESSES: 1. Liver cirrhosis due to alcohol abuse with drinking approximately 4 months ago. 2. Perforated pyloric channel ulcer surgery. 3. Liver cirrhosis from alcohol abuse. 4. Diabetes mellitus. 5. Duodenal ulcer in May of 2020. SOCIAL HISTORY: The patient smokes. He drinks approximately . MEDICATIONS: Reviewed. SURGERIES: 1. Hernia repair. 2. Perforated ulcer disease, underwent surgery by Dr. Koenig. 3. Cholecystectomy at the same time. 4. EGD . FAMILY HISTORY: cancer colon cancer . REVIEW OF SYSTEMS: CONSTITUTIONAL: No weight loss, had good exercise tolerance, and no fever. HEAD: No chronic headache. No syncope. No TIA. EYES: No impaired vision. No diplopia. EARS: Hearing loss is chronic. NOSE: No nose bleed. No rhinorrhea. THROAT: No sore throat. No dyspnea. LUNGS: No coughing . CARDIOVASCULAR: No chest pain. No palpitation. No dyspnea. . MUSCULOSKELETAL: NEUROLOGICAL: PHYSICAL EXAMINATION: GENERAL: . jaundice VITAL SIGNS: He is afebrile. Pulse is 79, blood pressure . NECK: No adenitis or thyromegaly noted. CARDIOVASCULAR SYSTEM: Normal heart sounds. LUNGS: Clear to auscultation. ABDOMEN: Soft. Abdomen is nondistended. He had operative scar over the upper abdomen, right paramedian. Abdomen is nontender. He does have enlarged liver, nontender. EXTREMITIES: Reveal no edema. PIERCER: Grossly within normal. LABORATORY DATA: WBC 5000, hemoglobin , platelet count 85,000. Repeat H and H, 6.2 and 21.5, platelets 68,000. Chemistry panel: Sodium 126, potassium 3.9, chloride 99, BUN is 9, creatinine 0.73, glucose of 170, calcium 8.3, bilirubin is 5.8, AST 28, ALT is 20, albumin is 2.4, globulin 3.2 . 05/12/2020, hemoglobin 9.8, hematocrit 32.4, MCV 85.1. CLINICAL IMPRESSION: 1. A 50-year-old male with liver cirrhosis, but no esophagitis. He had the last EGD in May of 2020. He had a small ulcer in the duodenum. Also, nonbleeding. 2. History of liver cirrhosis, but no overt varicosities. He had last EGD in May of 2020. 3. Anemia, which is worsening since the last admission; however, he has no history of hematochezia or any melena. There is no stool for occult blood done. 4. Hypertension. 5. Diabetes mellitus. 6. Perforated ulcer disease in 2016. RECOMMENDATIONS: 1. Please obtain stool for occult blood. 2. Iron supplement. 3. May consider an EGD and a colonoscopy before discharge because . Job ID: [id number]
[2020-07-28] MEDS: Sodium Bicarbonate Tab 325 MG TAB PO SCH ×3 (09:52→20:44)
[2020-07-28] MEDS: Spironolactone 25 MG TAB PO SCH ×2 (09:53→20:48)
[2020-07-28] MEDS: metFORMIN 500 MG TAB PO SCH ×2 (09:53→16:52)
[2020-07-28] MEDS: Potassium Chloride 10 MEQ TAB PO SCH (09:54)
[2020-07-28] MEDS: Pantoprazole 40 MG VIAL IVP SCH ×2 (09:54→20:49)
[2020-07-28] MEDS: Nadolol 40 MG TAB PO SCH (09:54)
[2020-07-28] MEDS: Gabapentin 300 MG CAP PO SCH (10:00)
[2020-07-28] MEDS: Bupropion 150 MG XL TAB PO SCH (10:00)
--- NOTE | 2020-07-28 10:17 | OP ---
DATE OF PROCEDURE: 07/28/2020 PROCEDURE PERFORMED: Esophagogastroduodenoscopy with biopsy. PREOPERATIVE DIAGNOSES: Iron deficient anemia, past history of peptic ulcer. POSTOPERATIVE DIAGNOSES: 1. Normal esophageal mucosa. 2. Erythematous mucosa throughout stomach partially represent portal gastropathy. 3. Normal gastric antrum and duodenum. DESCRIPTION OF PROCEDURE: The patient was placed on his left lateral position and was given sedation by Anesthesia Department. A Pentax video gastroscope under direct vision passed down the oropharynx past the GE junction, the stomach, and subsequently into the descending duodenum. The esophageal mucosa appeared normal throughout. No erosions or any varices seen. The patient had hiatal hernia. The gastric mucosa was diffusely hyperemic, edematous. portal gastropathy. The was somewhat friable. With suctioning of the mucosa, there was mild friability and oozing of blood. Biopsy obtained of the gastric antrum and gastric body. The incisura angularis, pyloric channel, no lesion seen. The duodenal bulb, descending duodenum, no pathology. The stomach decompressed and the scope removed. IMPRESSION: Iron deficient anemia, etiology unclear. He had negative esophagogastroduodenoscopy and colonoscopy. RECOMMENDATIONS: 1. Iron supplement. 2. Follow up H and H. 3. From GI standpoint, the patient can be discharged home. We will sign off from today, and if there are any issues, please call us back. Job ID: [id number]
[2020-07-28] MEDS ORDERED: Potassium Chloride 20 MEQ TAB PO SCH (10:45)
[2020-07-28] MEDS ORDERED: Ferrous Sulfate 325 MG TAB PO SCH (11:00)
--- NOTE | 2020-07-28 11:14 | OP ---
DATE OF PROCEDURE: 07/28/2020 OPERATIVE PROCEDURE: Colonoscopy. PREOPERATIVE DIAGNOSIS: A 50-year-old male with anemia, which is microcytic. The patient is undergoing colonoscopy. POSTOPERATIVE DIAGNOSES: 1. Large hemorrhoids. 2. Otherwise, normal colonoscopy. However, the mucosa was somewhat hyperemic, edematous throughout the colon. DESCRIPTION OF PROCEDURE: The patient was placed on his left lateral position and was given sedation by Anesthesia Department. A rectal exam was done before scope was advanced into the rectum. No lesions felt on rectal exam. A Pentax videocolonoscope was introduced into the rectum and advanced all the way into the cecum. The prep was very good. The mucosa appears normal except for mild mucosal, edema, and erythema throughout. The appendicular opening, ileocecal valve, and cecum, no lesions seen. Withdrawal of scope in the cecum to ascending colon, hepatic flexure, no lesion seen. The transverse colon, splenic flexure, descending colon, sigmoid colon, no pathology seen. The rectum showed large hemorrhoids. Job ID: [id number]
[2020-07-28] MEDS: HumaLOG 300 UNITS/3 ML VIAL SC PRN ×2 (12:48→16:52)
[2020-07-28] MEDS ORDERED: PROPOFOL 200 MG/20 ML VIAL ONE (12:55)
--- NOTE | 2020-07-28 12:59 | PDOC.NEPPN ---
- Subjective Encounter Date: 07/28/20 Subjective: Seen in follow up for hyponatremia. Patient with liver cirrhosis was admitted with nausea/vomiting and fever.Feeling better. - Objective Vital Signs & Weight: Vital Signs (12 hours) Temp Pulse Resp BP Pulse Ox 07/28/20 12:08 98.5 F 83 20 114/45 L 100 07/28/20 07:53 98.2 F 65 18 84/32 L 100 07/28/20 05:15 98.5 F 76 20 90/54 L 93 L Weight Admit Weight 204 lb Weight 204 lb I&O: 07/27/20 07/28/20 07/29/20 06:59 06:59 06:59 Intake Total 2600 1650 Balance 2600 1650 Result Diagrams: 07/28/20 06:19 07/28/20 06:19 Additional Labs: Accuchecks 07/28/20 07/28/20 07/27/20 12:13 05:38 19:55 POC Glucose 196 H 125 H 86 07/27/20 15:24 POC Glucose 79 Nephrology ROS - Medication Medications: Active Medications Generic Name Dose Route Start Last Admin Trade Name Freq PRN Reason Stop Dose Admin Bupropion HCl 150 mg 07/27/20 09:00 07/28/20 10:00 Bupropion 150 Mg Xl Tab PO 150 mg Q24HR HARPREET Administration Ferrous Sulfate 325 mg 07/28/20 11:00 07/28/20 12:48 Ferrous Sulfate 325 Mg Tab PO 07/28/20 14:00 325 mg NOW HARPREET Administration Gabapentin 300 mg 07/27/20 09:00 07/28/20 10:00 Gabapentin 300 Mg Cap PO 300 mg Q24HR HARPREET Administration Levofloxacin 750 mg/ Device 150 mls @ 100 mls/hr 07/26/20 01:00 07/28/20 00:20 IVPB 150 mls Q24HR HARPREET Administration Insulin Human Lispro 0 units 07/27/20 10:58 07/28/20 12:48 Humalog 300 Units/3 Ml Vial SC 2 unit .MILD SLIDING SCALE PRN Administration Mild Correctional Scale Melatonin 3 mg 07/26/20 18:32 07/27/20 22:39 Melatonin 3 Mg Tab PO 3 mg HS PRN Administration Insomnia Metformin HCl 1,000 mg 07/27/20 17:00 07/28/20 09:53 Metformin 500 Mg Tab PO 1,000 mg BID-WM HARPREET Administration Nadolol 20 mg 07/27/20 09:00 07/28/20 09:54 Nadolol 40 Mg Tab PO Not Given DAILY HARPREET Ondansetron HCl 4 mg 07/26/20 06:05 07/26/20 06:17 Ondansetron Pf 4 Mg/2 Ml Vial IVP 4 mg Q6H PRN Administration Nausea/Vomiting Pantoprazole Sodium 40 mg 07/26/20 09:00 07/28/20 09:54 Pantoprazole 40 Mg Vial IVP 40 mg Q12HR HARPREET Administration Potassium Chloride 10 meq 07/28/20 09:00 07/28/20 09:54 Potassium Chloride 10 Meq Tab PO 10 meq DAILY HARPREET Administration Potassium Chloride 40 meq 07/28/20 10:45 07/28/20 12:47 Potassium Chloride 20 Meq Tab PO 07/28/20 13:00 40 meq NOW HARPREET Administration Sodium Bicarbonate 650 mg 07/27/20 15:00 07/28/20 09:52 Sodium Bicarbonate Tab 325 Mg Tab PO 650 mg TID HARPREET Administration Sodium Chloride 10 ml 07/26/20 00:28 07/27/20 20:00 Flush - Normal Saline 10 Ml Syringe IVF 10 ml Q12HR PRN Administration Saline Flush Spironolactone 50 mg 07/27/20 21:00 07/28/20 09:53 Spironolactone 25 Mg Tab PO 50 mg BID HARRPEET Administration - Exam General Appearance: awake alert Eye: scleral icterus ENT: normocephalic atraumatic, moist mucosa Neck: supple, symmetric, no JVD Respiratory: no wheezes, no ronchi, normal chest expansion, no tachypnea Respiratory - other findings: few bibasal crackles Cardiovascular: RRR Heart - other findings: soft systolic murmur noted Gastrointestinal: soft, non-tender, non-distended, normal bowel sounds Extremities - other findings: Left leg edema. chronic venous stasis changes noted Neurological: CN's grossly intact, no focal deficits PSYCH: A&O x 3 Nephrology Results - Labs Result Diagrams: 07/28/20 06:19 07/28/20 06:19 Lab results: WBC 4.7 thou/uL (4.8-10.8) L 07/28/20 06:19 Hgb 7.4 g/dL (14.0-18.0) L 07/28/20 06:19 Hct 25.3 % (42.0-52.0) L 07/28/20 06:19 MCV 73.0 fL (78.0-98.0) L 07/28/20 06:19 Plt Count 75 thou/uL (130-400) L 07/28/20 06:19 Neutrophils % 68.2 % (42.0-75.0) 07/25/20 Unknown Band Neuts % (Manual) 8 % (5-11) 07/28/20 06:19 Sodium 128 mmol/L (136-145) L 07/28/20 06:19 Potassium 3.4 mmol/L (3.5-5.1) L 07/28/20 06:19 Chloride 101 mmol/L (98-107) 07/28/20 06:19 Carbon Dioxide 20 mmol/L (22-29) L 07/28/20 06:19 BUN 11 mg/dL (8.4-25.7) 07/28/20 06:19 Creatinine 0.76 mg/dL (0.7-1.3) 07/28/20 06:19 Glucose 115 mg/dL (70-105) H 07/28/20 06:19 Calcium 8.0 mg/dL (7.8-10.44) 07/28/20 06:19 Total Bilirubin 7.0 mg/dL (0.2-1.2) H 07/28/20 06:19 AST 27 U/L (5-34) 07/28/20 06:19 ALT 17 U/L (8-55) 07/28/20 06:19 Alkaline Phosphatase 117 U/L (40-110) H 07/28/20 06:19 Troponin I 0.023 ng/mL (< 0.028) 07/25/20 Unknown Serum Total Protein 6.1 g/dL (6.0-8.3) 07/28/20 06:19 Albumin 2.7 g/dL (3.5-5.0) L 07/28/20 06:19 Lipase 23 U/L (8-78) 07/25/20 Unknown Urine Ketones Negative mg/dL (Negative) 07/26/20 11:45 Urine Blood 1+ (Negative) A 07/26/20 11:45 Urine Nitrite Negative (Negative) 07/26/20 11:45 Ur Leukocyte Esterase Negative Greg/uL (Negative) 07/26/20 11:45 Urine RBC 4-6 HPF (0-3) A 07/26/20 11:45 Urine WBC 0-3 HPF (0-3) 07/26/20 11:45 Ur Squamous Epith Cells 0-3 HPF (0-3) 07/26/20 11:45 Urine Bacteria None Seen HPF (None Seen) 07/26/20 11:45 Sodium 128 mmol/L (136-145) L 07/28/20 06:19 Potassium 3.4 mmol/L (3.5-5.1) L 07/28/20 06:19 Chloride 101 mmol/L (98-107) 07/28/20 06:19 Carbon Dioxide 20 mmol/L (22-29) L 07/28/20 06:19 Anion Gap 10 mmol/L (10-20) 07/28/20 06:19 BUN 11 mg/dL (8.4-25.7) 07/28/20 06:19 Creatinine 0.76 mg/dL (0.7-1.3) 07/28/20 06:19 Glucose 115 mg/dL (70-105) H 07/28/20 06:19 Calcium 8.0 mg/dL (7.8-10.44) 07/28/20 06:19 Albumin 2.7 g/dL (3.5-5.0) L 07/28/20 06:19 Nephrology AP PN - Plan ASSESSMENT: Hyponatremia: Acute worsening of chronic hyponatremia. The patient has intractable nausea and vomiting with poor oral intake. 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 Urine specific gravity of 1.046 is consistent. Metabolic acidosis: Most likely due to liver cirrhosis as well as abdominal pathology and sepsis. Use of metformin may be contributory. Hypokalemia Microcytic anemia: The patient has prior history of peptic ulcer disease with perforation, status post omental patch. Most likely related to gastrointestinal bleeding. Acute drop in hemoglobin S/p transfusion. Volume depletion/dehydration.Improving Hyperbilirubinemia. Sepsis of unclear etiology, given fever. Staph aureus bacteremia alcoholic liver cirrhosis PLAN: Start salt tablets Start 1500 fluid restriction. Continue sodium bicarbonate therapy orally. Replete potassium supplementation. [place] oral intake advised. Further treatment to follow depending on review of other diagnostic tests and hospital course.
[2020-07-28 13:12] LABS: SARS-CoV-2 IgG Ab Non-Reactive (NonReactive); SARS-CoV-2 IgG Index 0.25 S/CO (< 1.40)
[2020-07-28] MEDS: Linezolid 600 MG in Premix Bag 1 BAG IVPB SCH (13:27)
[2020-07-28] MEDS ORDERED: CEFAZOLIN 2 GM in Premix Bag 1 BAG IVPB SCH (14:00)
[2020-07-28] MEDS: Sodium Chloride 1 GM TAB PO SCH ×2 (14:51→20:49)
--- NOTE | 2020-07-28 16:01 | PDOC.HOSPP ---
- Subjective Encounter Date: 07/28/20 Encounter Time: 15:56 Subjective: Patient seen in follow-up for anemia. He denies any chest pain or shortness of breath. He has been ambulating. He has diarrhea. - Objective Vital Signs & Weight: Vital Signs (12 hours) Temp Pulse Resp BP Pulse Ox 07/28/20 12:08 98.5 F 83 20 114/45 L 100 07/28/20 07:53 98.2 F 65 18 84/32 L 100 07/28/20 05:15 98.5 F 76 20 90/54 L 93 L Weight Admit Weight 204 lb Weight 204 lb I&O: 07/27/20 07/28/20 07/29/20 06:59 06:59 06:59 Intake Total 2600 1650 Balance 2600 1650 Result Diagrams: 07/28/20 06:19 07/28/20 06:19 Additional Labs: Accuchecks 07/28/20 07/28/20 07/27/20 12:13 05:38 19:55 POC Glucose 196 H 125 H 86 I reviewed patient's labs and [facility] Hospitalist ROS - Review of Systems Cardiovascular: denies: chest pain, palpitations, orthopnea, paroxysmal noc. dyspnea, edema, light headedness Gastrointestinal: denies: nausea, vomiting, abdominal pain, diarrhea, constipation, melena, hematochezia - Medication Medications: Active Medications Generic Name Dose Route Start Last Admin Trade Name Freq PRN Reason Stop Dose Admin Bupropion HCl 150 mg 07/27/20 09:00 07/28/20 10:00 Bupropion 150 Mg Xl Tab PO 150 mg Q24HR HARPREET Administration Gabapentin 300 mg 07/27/20 09:00 07/28/20 10:00 Gabapentin 300 Mg Cap PO 300 mg Q24HR HARPREET Administration Insulin Human Lispro 0 units 07/27/20 10:58 07/28/20 12:48 Humalog 300 Units/3 Ml Vial SC 2 unit .MILD SLIDING SCALE PRN Administration Mild Correctional Scale Melatonin 3 mg 07/26/20 18:32 07/27/20 22:39 Melatonin 3 Mg Tab PO 3 mg HS PRN Administration Insomnia Metformin HCl 1,000 mg 07/27/20 17:00 07/28/20 09:53 Metformin 500 Mg Tab PO 1,000 mg BID-WM HARPREET Administration Nadolol 20 mg 07/27/20 09:00 07/28/20 09:54 Nadolol 40 Mg Tab PO Not Given DAILY HARPREET Ondansetron HCl 4 mg 07/26/20 06:05 07/26/20 06:17 Ondansetron Pf 4 Mg/2 Ml Vial IVP 4 mg Q6H PRN Administration Nausea/Vomiting Pantoprazole Sodium 40 mg 07/26/20 09:00 07/28/20 09:54 Pantoprazole 40 Mg Vial IVP 40 mg Q12HR HARPREET Administration Potassium Chloride 10 meq 07/28/20 09:00 07/28/20 09:54 Potassium Chloride 10 Meq Tab PO 10 meq DAILY HARPREET Administration Sodium Bicarbonate 650 mg 07/27/20 15:00 07/28/20 14:51 Sodium Bicarbonate Tab 325 Mg Tab PO 650 mg TID HARPREET Administration Sodium Chloride 10 ml 07/26/20 00:28 07/27/20 20:00 Flush - Normal Saline 10 Ml Syringe IVF 10 ml Q12HR PRN Administration Saline Flush Sodium Chloride 1 gm 07/28/20 15:00 07/28/20 14:51 Sodium Chloride 1 Gm Tab PO 1 gm TID HARPREET Administration Spironolactone 50 mg 07/27/20 21:00 07/28/20 09:53 Spironolactone 25 Mg Tab PO 50 mg BID HARPREET Administration - Exam General Appearance: awake alert Eye: scleral icterus ENT: normocephalic atraumatic Neck: supple Heart: RRR Respiratory: CTAB Gastrointestinal: soft, non-tender Extremities: no cyanosis Skin: normal turgor Neurological: cranial nerve grossly intact Musculoskeletal: normal tone Psychiatric: normal affect Hosp A/P - Plan -Assessment (1) Hyponatremia Code(s): E87.1 - HYPO-OSMOLALITY AND HYPONATREMIA Status: Acute (2) Microcytic anemia Code(s): D50.9 - IRON DEFICIENCY ANEMIA, UNSPECIFIED Status: Acute (3) Bacteremia Status: Acute (4) Cirrhosis, alcoholic Code(s): K70.30 - ALCOHOLIC CIRRHOSIS OF LIVER WITHOUT ASCITES Status: Chronic Qualifiers: Ascites presence: without ascites Qualified Code(s): K70.30 - Alcoholic cirrhosis of liver without ascites (5) History of peptic ulcer disease Code(s): Z87.11 - PERSONAL HISTORY OF PEPTIC ULCER DISEASE Status: Chronic (6) DM type 2 (diabetes mellitus, type 2) Status: Chronic Qualifiers: Diabetes mellitus halfway insulin use: without halfway use Diabetes mellitus complication status: without complication Qualified Code(s): E11.9 - Type 2 diabetes mellitus without complications (7) Intractable nausea and vomiting Code(s): R11.2 - NAUSEA WITH VOMITING, UNSPECIFIED Status: Resolved - Plan 2 out of 2 blood cultures are growing Staphylococcus aureus, with infectious disease service. Likely contaminant, antibiotics being discontinued. Stool for C. difficile. Status post EGD and colonoscopy, GI recommendation is to start iron. Sodium improving. Monitor volume status closely to avoid volume overload.
[2020-07-28] MEDS: Melatonin 3 MG TAB PO PRN (20:44)
--- NOTE | 2020-07-28 22:23 | CON ---
DATE OF CONSULTATION: 07/28/2020 REASON: Bacteremia. HISTORY OF PRESENT ILLNESS: A 50-year-old, whom we had seen in the past, who has a history of alcoholism, liver cirrhosis, Wernicke's encephalopathy in the past, type 2 diabetes, prior episodes of bacteremia, including one with MRSA, which was treated to completion and a second one with group B Streptococcus. The last time I saw him was in April and he had group B strep bacteremia of unknown primary site, and this time he presents with new onset of diarrhea for the past few weeks. The emergency room described nausea and vomiting as well. Apparently, he had a temperature of 101 on admission. No headaches. No cough or sputum production. No shortness of breath. No chest pain. No back pain. Some abdominal cramps. He was having up to five liquid bowel movements per day. Still having liquid stools intermittently. Voiding without difficulty and no dysuria. No bleeding. No joint symptoms. No neurological symptoms. MEDICAL HISTORY: Alcoholism; liver cirrhosis; portal hypertension; pyloric ulcer with rupture requiring exploratory laparotomy for repair; recurrent cellulitis in the lower extremities; bacteremia due to MRSA, transient, probably from skin and another episode of group B streptococcal bacteremia, probably from the skin as well. He has had a hernia repair and laminectomy. SOCIAL HISTORY: Still drinking daily. Still smoking daily. No other drug use. ALLERGIES: PENICILLIN WITH HIVES. CURRENT MEDICATIONS: He had been on vancomycin and switched him to cefazolin. He is also on levofloxacin. FAMILY HISTORY: Noncontributory. PHYSICAL EXAMINATION: VITAL SIGNS: T-max 101, is now down to 100; BP 114/45; heart rate 83; respiratory rate 18; and O2 saturation 100. SKIN: Areas of spider angiomata in the anterior chest. Question of jaundice. Peripheral IV access. He is urinating in the toilet and urinal. GENERAL: He is awake, oriented, follows commands. HEENT: Ocular movements conjugate. Scleral icterus, mild. Conjunctivae normal. Pupils are 2 mm and reactive, symmetric. Oral cavity with atrophy of tongue papillae, but no lesions. No thrush. Numerous missing teeth. NECK: Supple. No jugular vein distention. LUNGS: Symmetric air entry. Faint crackles in the left base. HEART: S1 and S2 with systolic and diastolic murmur best heard at the heart base, both to the right and to the left of the sternal border, more or less second and third spaces. Regular rate without S3 or S4. ABDOMEN: Mildly tender. Early mild ascites. No bladder distention. EXTREMITIES: Muscle atrophy. Trace edema of the lower extremities. Lymphedema noted particularly on the left side. Hyperpigmented areas in the left leg skin. Pulses 1+ in dorsalis pedis. Plantar responses are flexor. No clonus. NEUROLOGIC: Awake, knows his name. Oriented. Recollection is pretty good. Speech appears to be normal. He has quite a bit of hearing impairment. Communication was made difficult because of that, but he was able to understand when I repeated questions. LABORATORY: White cell count started at 5.1 and now 4.7; hemoglobin started at 7.6, now 7.4; and platelets are at 75,000. Differential with 45% neutrophils; initially 12% bands, down to 8%. Creatinine 0.76, bilirubin 7.0, AST 27, ALT 17, alkaline phosphatase 117, and albumin 2.7. Urinalysis with 0 to 3 wbc's. SARS-CoV was not detected. SARS-CoV IgG antibody index not detected. Chest x-ray with vascular congestion, reticulonodular densities in left perihilar region. Blood cultures with Staphylococcus sciuri 2/2 sets of blood cultures. The specimens were obtained according to the entry data in the lab at the same time at 1:10 a.m. ASSESSMENT: Liver cirrhosis secondary to alcoholism, Wernicke's encephalopathy, prior episodes of bacteremia in the past, diarrhea, some nausea, vomiting, and fever. The diarrhea has been present for a few weeks before admission. Patient had an EGD and colonoscopy with Dr. Yadav with mild findings. DISCUSSION: The differential diagnosis includes transient bacteremia, gastroenteritis, including the possibility of Clostridium difficile or another enteral pathogen. COVID infection is less likely, but not completely ruled out yet. The Staphylococcus species is a coagulase-negative Staph and the collection timing is indicated as the same time, so this could represent contamination of the sample rather than a true pathogen. Staphylococcus sciuri is more likely to be a contaminant than a true pathogen in this case. This is particularly so due to the fact that patient has no foreign body. I am going to discontinue antimicrobial therapy at this point and check his stool for various assays, including Clostridium difficile, Shiga toxin, etc. Job ID: [id number]
[2020-07-29] MEDS: HumaLOG 300 UNITS/3 ML VIAL SC PRN ×2 (04:51→12:47)
[2020-07-29 09:03] LABS: ALT (SGPT) 14 U/L (8-55); AST (SGOT) 25 U/L (5-34); Albumin 2.3 g/dL (3.5-5.0); Alkaline Phosphatase 193 U/L (40-110); Anion Gap 7 mmol/L (10-20); BUN (Urea Nitrogen) 5 mg/dL (8.4-25.7); Bilirubin, Total 4.4 mg/dL (0.2-1.2); Calc. Creatinine Clearance 184 mL/min (70-130); Calcium 7.7 mg/dL (7.8-10.44); Carbon Dioxide 21 mmol/L (22-29); Chloride 106 mmol/L (98-107); Estimated GFR-MDRD Greater than 90; Globulin 3.1 g/dL (2.4-3.5); Glucose 232 mg/dL (70-105); Magnesium 1.4 mg/dL (1.6-2.6); Potassium 3.3 mmol/L (3.5-5.1); Protein, Total 5.4 g/dL (6.0-8.3); Sodium 131 mmol/L (136-145)
[2020-07-29 09:05] LABS: Mean Corpuscular Hemoglobin 21.5 pg (27.0-31.0); Mean Corpuscular Volume 74.2 fL (78.0-98.0); Mean Platelet Volume 6.1 fL (7.4-10.4); Platelet Count 67 thou/uL (130-400); RBC Distribution Width 19.7 % (11.5-14.5); Red Blood Cell (RBC) Count 3.26 mill/uL (4.70-6.10); White Blood Cell (WBC) Count 2.6 thou/uL (4.8-10.8)
[2020-07-29] MEDS: Ferrous Sulfate 325 MG TAB PO SCH (09:05)
[2020-07-29] MEDS: Potassium Chloride 10 MEQ TAB PO SCH (09:05)
[2020-07-29] MEDS: Nadolol 40 MG TAB PO SCH (09:05)
[2020-07-29] MEDS: Sodium Bicarbonate Tab 325 MG TAB PO SCH ×3 (09:05→20:15)
[2020-07-29] MEDS: metFORMIN 500 MG TAB PO SCH ×2 (09:05→16:02)
[2020-07-29] MEDS: Spironolactone 25 MG TAB PO SCH ×2 (09:05→20:15)
[2020-07-29] MEDS: Pantoprazole 40 MG VIAL IVP SCH ×2 (09:06→20:16)
[2020-07-29] MEDS: Gabapentin 300 MG CAP PO SCH (09:06)
[2020-07-29] MEDS: Sodium Chloride 1 GM TAB PO SCH ×3 (09:11→20:15)
[2020-07-29] MEDS ORDERED: Magnesium Sulfate 4 GM in Sodium Chloride 0.9% 250 ML 250 ML IVPB SCH (09:15)
[2020-07-29] MEDS ORDERED: Potassium Chloride 20 MEQ TAB PO SCH (09:15)
[2020-07-29] MEDS: Bupropion 150 MG XL TAB PO SCH (10:22)
[2020-07-29 11:05] LABS: Band 2 % (5-11); Burr Cells SLIGHT = 2-5 cells (100X) (0-1/hpf); Eosinophils 3 % (0-10); Hypochromia MODERATE=16-30 cells (100X) (0-5/hpf); Lymphocytes 44 % (21-51); MDiff Complete? YES; Microcytosis MODERATE=15-30 cells (100X) (0-5/hpf); Monocytes 15 % (0-10); Neutrophil 35 % (42-75); Nucleated RBC 1 % (0); Platelet Morphology Comment Appears Decreased; Polychromasia SLIGHT = 2-3 cells (100X) (0-2/hpf); Reactive Lymphocytes 1 % (0-10); Schistocytes MODERATE= 6-15 cells (100X) (0-1/hpf)
--- NOTE | 2020-07-29 14:44 | PDOC.HOSPP ---
- Subjective Encounter Date: 07/29/20 Encounter Time: 11:00 Subjective: Patient seen for follow-up regarding hyponatremia. Still has diarrhea. - Objective Vital Signs & Weight: Vital Signs (12 hours) Temp Pulse Resp BP Pulse Ox 07/29/20 11:00 97.6 F 74 20 119/57 L 100 07/29/20 09:00 99 07/29/20 08:00 98.5 F 91 20 117/63 99 Weight Admit Weight 204 lb Weight 204 lb I&O: 07/28/20 07/29/20 07/30/20 06:59 06:59 06:59 Intake Total 1650 800 Balance 1650 800 Result Diagrams: 07/29/20 07:47 07/29/20 07:47 Additional Labs: Accuchecks 07/29/20 07/29/20 07/28/20 11:52 04:43 20:56 POC Glucose 217 H 212 H 194 H 07/28/20 07/27/20 16:32 05:25 POC Glucose 270 H 134 H I reviewed patient's labs and [facility] Hospitalist ROS - Review of Systems Constitutional: denies: fever, chills, sweats, weakness Cardiovascular: denies: chest pain, palpitations, orthopnea, paroxysmal noc. dyspnea, edema - Medication Medications: Active Medications Generic Name Dose Route Start Last Admin Trade Name Freq PRN Reason Stop Dose Admin Bupropion HCl 150 mg 07/27/20 09:00 07/29/20 10:22 Bupropion 150 Mg Xl Tab PO 150 mg Q24HR HARPREET Administration Ferrous Sulfate 325 mg 07/29/20 08:00 07/29/20 09:05 Ferrous Sulfate 325 Mg Tab PO 325 mg QAM-WM HARPREET Administration Gabapentin 300 mg 07/27/20 09:00 07/29/20 09:06 Gabapentin 300 Mg Cap PO 300 mg Q24HR HARPREET Administration Insulin Human Lispro 0 units 07/27/20 10:58 07/29/20 12:47 Humalog 300 Units/3 Ml Vial SC 3 unit .MILD SLIDING SCALE PRN Administration Mild Correctional Scale Melatonin 3 mg 07/26/20 18:32 07/28/20 20:44 Melatonin 3 Mg Tab PO 3 mg HS PRN Administration Insomnia Metformin HCl 1,000 mg 07/27/20 17:00 07/29/20 09:05 Metformin 500 Mg Tab PO 1,000 mg BID-WM HARPREET Administration Nadolol 20 mg 07/27/20 09:00 07/29/20 09:05 Nadolol 40 Mg Tab PO 20 mg DAILY HARPREET Administration Ondansetron HCl 4 mg 07/26/20 06:05 07/26/20 06:17 Ondansetron Pf 4 Mg/2 Ml Vial IVP 4 mg Q6H PRN Administration Nausea/Vomiting Pantoprazole Sodium 40 mg 07/26/20 09:00 07/29/20 09:06 Pantoprazole 40 Mg Vial IVP 40 mg Q12HR HARPREET Administration Potassium Chloride 10 meq 07/28/20 09:00 07/29/20 09:05 Potassium Chloride 10 Meq Tab PO 10 meq DAILY HARPREET Administration Sodium Bicarbonate 650 mg 07/27/20 15:00 07/29/20 09:05 Sodium Bicarbonate Tab 325 Mg Tab PO 650 mg TID HARPREET Administration Sodium Chloride 10 ml 07/26/20 00:28 07/29/20 09:12 Flush - Normal Saline 10 Ml Syringe IVF 10 ml Q12HR PRN Administration Saline Flush Sodium Chloride 1 gm 07/28/20 15:00 07/29/20 09:11 Sodium Chloride 1 Gm Tab PO 1 gm TID HARPREET Administration Spironolactone 50 mg 07/27/20 21:00 07/29/20 09:05 Spironolactone 25 Mg Tab PO 50 mg BID HARPREET Administration - Exam General Appearance: awake alert Eye: scleral icterus ENT: moist mucosa Neck: supple, symmetric Heart: RRR Respiratory: CTAB Gastrointestinal: soft Extremities: no cyanosis Skin: no rashes Musculoskeletal: no muscle wasting Psychiatric: normal affect, normal behavior Hosp A/P - Plan -Assessment (1) Hyponatremia Code(s): E87.1 - HYPO-OSMOLALITY AND HYPONATREMIA Status: Acute (2) Microcytic anemia Code(s): D50.9 - IRON DEFICIENCY ANEMIA, UNSPECIFIED Status: Acute (3) Bacteremia Status: Ruled out (4) Cirrhosis, alcoholic Code(s): K70.30 - ALCOHOLIC CIRRHOSIS OF LIVER WITHOUT ASCITES Status: Chronic Qualifiers: Ascites presence: without ascites Qualified Code(s): K70.30 - Alcoholic cirrhosis of liver without ascites (5) History of peptic ulcer disease Code(s): Z87.11 - PERSONAL HISTORY OF PEPTIC ULCER DISEASE Status: Chronic (6) DM type 2 (diabetes mellitus, type 2) Status: Chronic Qualifiers: Diabetes mellitus mcfp insulin use: without mcfp use Diabetes mellitus complication status: without complication Qualified Code(s): E11.9 - Type 2 diabetes mellitus without complications (7) Intractable nausea and vomiting Code(s): R11.2 - NAUSEA WITH VOMITING, UNSPECIFIED Status: Resolved - Plan Sodium 131 today. Stool test for C. difficile pending. Status post EGD and colonoscopy, continue iron Less potassium
--- NOTE | 2020-07-29 15:30 | PRG ---
DATE OF SERVICE: 07/29/2020 SUBJECTIVE: He is feeling better. He is still having liquid stool, up to 4 to 5 times a day. He states to me that he has had this now for 4 months. He does not have abdominal cramps, no respiratory symptoms, no abdominal pain. OBJECTIVE: VITAL SIGNS: T-max 100, otherwise afebrile since July 26; blood pressure 119/57. GENERAL: Awake and alert. Mild jaundice. LUNGS: Clear. HEART: S1 and S2, regular rate. ABDOMEN: Soft without distention. Bowel sounds are normal. EXTREMITIES: Moves all extremities equally. LABORATORY DATA: White cell count 2.6, hemoglobin 7, platelets 67, 35% neutrophils, 2% bands, 44% lymphocytes, and 15% monocytes. Creatinine 0.62, sodium 131, potassium 3.3, carbon dioxide 21, calcium 7.7, bilirubin 4.4, transaminase is normal, alkaline phosphatase 193, albumin 2.3. We have stool lactoferrin submitted, which showed absence of elevated fecal lactoferrin. shiga toxin negative. Staph sciuri was identified on blood cultures. This is presumably more likely to represent contamination of the sample rather than a true bacteremia. Echocardiogram is pending. ASSESSMENT AND DISCUSSION: Liver cirrhosis secondary to alcoholism, Wernicke encephalopathy, prior episodes of bacteremia in the past, now with Staphylococcus sciuri bacteremia, most likely contaminant due to the characteristics of the organism in the collection method. The diarrhea seems to be noninflammatory diarrhea and has been there for 4 months, so Clostridium difficile is not likely. We will go ahead and cancel the test for Clostridium difficile. Job ID: [id number] [id number]
--- NOTE | 2020-07-29 15:59 | PDOC.NEPPN ---
- Subjective Encounter Date: 07/29/20 Subjective: Seen in follow up for Hyponatremia. Patient with Liver cirrhosis was admitted due to intractable nausea and vomiting associated with fever. Also has history of frequent loose stools which reportedly is worse. Feeling better. Nausea and vomiting hae subsided. Patient is tolerating oral intake. - Objective Vital Signs & Weight: Vital Signs (12 hours) Temp Pulse Resp BP Pulse Ox 07/29/20 11:00 97.6 F 74 20 119/57 L 100 07/29/20 09:00 99 07/29/20 08:00 98.5 F 91 20 117/63 99 Weight Admit Weight 204 lb Weight 204 lb I&O: 07/28/20 07/29/20 07/30/20 06:59 06:59 06:59 Intake Total 1650 800 Balance 1650 800 Result Diagrams: 07/29/20 07:47 07/29/20 07:47 Additional Labs: Accuchecks 07/29/20 07/29/20 07/28/20 11:52 04:43 20:56 POC Glucose 217 H 212 H 194 H 07/28/20 07/27/20 16:32 05:25 POC Glucose 270 H 134 H Nephrology ROS - Medication Medications: Active Medications Generic Name Dose Route Start Last Admin Trade Name Freq PRN Reason Stop Dose Admin Bupropion HCl 150 mg 07/27/20 09:00 07/29/20 10:22 Bupropion 150 Mg Xl Tab PO 150 mg Q24HR HARPREET Administration Ferrous Sulfate 325 mg 07/29/20 08:00 07/29/20 09:05 Ferrous Sulfate 325 Mg Tab PO 325 mg QAM-WM HARPREET Administration Gabapentin 300 mg 07/27/20 09:00 07/29/20 09:06 Gabapentin 300 Mg Cap PO 300 mg Q24HR HARPREET Administration Insulin Human Lispro 0 units 07/27/20 10:58 07/29/20 12:47 Humalog 300 Units/3 Ml Vial SC 3 unit .MILD SLIDING SCALE PRN Administration Mild Correctional Scale Melatonin 3 mg 07/26/20 18:32 07/28/20 20:44 Melatonin 3 Mg Tab PO 3 mg HS PRN Administration Insomnia Metformin HCl 1,000 mg 07/27/20 17:00 07/29/20 09:05 Metformin 500 Mg Tab PO 1,000 mg BID-WM HARPREET Administration Nadolol 20 mg 07/27/20 09:00 07/29/20 09:05 Nadolol 40 Mg Tab PO 20 mg DAILY HARPREET Administration Ondansetron HCl 4 mg 07/26/20 06:05 07/26/20 06:17 Ondansetron Pf 4 Mg/2 Ml Vial IVP 4 mg Q6H PRN Administration Nausea/Vomiting Pantoprazole Sodium 40 mg 07/26/20 09:00 07/29/20 09:06 Pantoprazole 40 Mg Vial IVP 40 mg Q12HR HARPREET Administration Potassium Chloride 10 meq 07/28/20 09:00 07/29/20 09:05 Potassium Chloride 10 Meq Tab PO 10 meq DAILY HARPREET Administration Sodium Bicarbonate 650 mg 07/27/20 15:00 07/29/20 09:05 Sodium Bicarbonate Tab 325 Mg Tab PO 650 mg TID HARPREET Administration Sodium Chloride 10 ml 07/26/20 00:28 07/29/20 09:12 Flush - Normal Saline 10 Ml Syringe IVF 10 ml Q12HR PRN Administration Saline Flush Sodium Chloride 1 gm 07/28/20 15:00 07/29/20 09:11 Sodium Chloride 1 Gm Tab PO 1 gm TID HARPREET Administration Spironolactone 50 mg 07/27/20 21:00 07/29/20 09:05 Spironolactone 25 Mg Tab PO 50 mg BID HARPREET Administration - Exam General Appearance: awake alert Eye: scleral icterus ENT: normocephalic atraumatic, moist mucosa Neck: symmetric, no JVD Respiratory: no wheezes, no ronchi, normal chest expansion Cardiovascular: RRR Gastrointestinal: soft, non-tender, non-distended, normal bowel sounds Extremities - other findings: Left lower extremity edema with chronic venous stasis changes Neurological: CN's grossly intact, no focal deficits Neurological - other findings: hard of hearing. PSYCH: A&O x 3 Nephrology Results - Labs Result Diagrams: 07/29/20 07:47 07/29/20 07:47 Lab results: WBC 2.6 thou/uL (4.8-10.8) L 07/29/20 07:47 Hgb 7.0 g/dL (14.0-18.0) L 07/29/20 07:47 Hct 24.2 % (42.0-52.0) L 07/29/20 07:47 MCV 74.2 fL (78.0-98.0) L 07/29/20 07:47 Plt Count 67 thou/uL (130-400) L 07/29/20 07:47 Neutrophils % 68.2 % (42.0-75.0) 07/25/20 Unknown Band Neuts % (Manual) 2 % (5-11) L 07/29/20 07:47 Sodium 131 mmol/L (136-145) L 07/29/20 07:47 Potassium 3.3 mmol/L (3.5-5.1) L 07/29/20 07:47 Chloride 106 mmol/L (98-107) 07/29/20 07:47 Carbon Dioxide 21 mmol/L (22-29) L 07/29/20 07:47 BUN 5 mg/dL (8.4-25.7) L 07/29/20 07:47 Creatinine 0.62 mg/dL (0.7-1.3) L 07/29/20 07:47 Glucose 232 mg/dL (70-105) H 07/29/20 07:47 Calcium 7.7 mg/dL (7.8-10.44) L 07/29/20 07:47 Total Bilirubin 4.4 mg/dL (0.2-1.2) H 07/29/20 07:47 AST 25 U/L (5-34) 07/29/20 07:47 ALT 14 U/L (8-55) 07/29/20 07:47 Alkaline Phosphatase 193 U/L (40-110) H 07/29/20 07:47 Troponin I 0.023 ng/mL (< 0.028) 07/25/20 Unknown Serum Total Protein 5.4 g/dL (6.0-8.3) L 07/29/20 07:47 Albumin 2.3 g/dL (3.5-5.0) L 07/29/20 07:47 Lipase 23 U/L (8-78) 07/25/20 Unknown Urine Ketones Negative mg/dL (Negative) 07/26/20 11:45 Urine Blood 1+ (Negative) A 07/26/20 11:45 Urine Nitrite Negative (Negative) 07/26/20 11:45 Ur Leukocyte Esterase Negative Greg/uL (Negative) 07/26/20 11:45 Urine RBC 4-6 HPF (0-3) A 07/26/20 11:45 Urine WBC 0-3 HPF (0-3) 07/26/20 11:45 Ur Squamous Epith Cells 0-3 HPF (0-3) 07/26/20 11:45 Urine Bacteria None Seen HPF (None Seen) 07/26/20 11:45 Sodium 131 mmol/L (136-145) L 07/29/20 07:47 Potassium 3.3 mmol/L (3.5-5.1) L 07/29/20 07:47 Chloride 106 mmol/L (98-107) 07/29/20 07:47 Carbon Dioxide 21 mmol/L (22-29) L 07/29/20 07:47 Anion Gap 7 mmol/L (10-20) L 07/29/20 07:47 BUN 5 mg/dL (8.4-25.7) L 07/29/20 07:47 Creatinine 0.62 mg/dL (0.7-1.3) L 07/29/20 07:47 Glucose 232 mg/dL (70-105) H 07/29/20 07:47 Calcium 7.7 mg/dL (7.8-10.44) L 07/29/20 07:47 Magnesium 1.4 mg/dL (1.6-2.6) L 07/29/20 07:47 Albumin 2.3 g/dL (3.5-5.0) L 07/29/20 07:47 Nephrology AP PN - Plan ASSESSMENT: Hyponatremia: Acute worsening of chronic hyponatremia. The patient has intractable nausea and vomiting with poor oral intake. 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 Sodium is up to 131 today Metabolic acidosis: Most likely due to liver cirrhosis as well as abdominal pathology and sepsis. Use of metformin may be contributory. Hypokalemia Hypomagnesemia Hypocalcemia Microcytic anemia: The patient has prior history of peptic ulcer disease with perforation, status post omental patch. Most likely related to gastrointestinal bleeding. Acute drop in hemoglobin S/p transfusion. Volume depletion/dehydration.Improving Hyperbilirubinemia. Sepsis of unclear etiology, given fever. Staph bacteremia alcoholic liver cirrhosis PLAN: Replete serum potassium and magnesium with KCL and magnesium sulphate respiratory. Get Vit D level Continue salt tablets and 1500 fluid restriction. Continue sodium bicarbonate therapy. Recommended discontinution of metformin in this patient given end stage liver disease. Chronic diarrhea. Metformin may be contributory Fieldon oral intake advised. Further treatment to follow depending on review of other diagnostic tests and hospital course.
[2020-07-29] MEDS: Melatonin 3 MG TAB PO PRN (22:39)
[2020-07-30] MEDS: HumaLOG 300 UNITS/3 ML VIAL SC PRN ×2 (05:24→12:20)
[2020-07-30 06:05] LABS: #Eosinphils 0.1 thou/uL (0.0-0.7); #Lymphocytes 0.8 thou/uL (1.20-3.40); #Monocytes 0.4 thou/uL (0.11-0.59); #Neutrophils 1.9 thou/uL (1.40-6.50); %Basophils 0.9 % (0.0-1.0); %Eosinophils 4.5 % (0.0-10.0); %Monocytes 12.6 % (0.0-10.0); Mean Corpuscular HGB CONC 29.1 g/dL (32.0-36.0); Mean Corpuscular Hemoglobin 21.6 pg (27.0-31.0); Mean Corpuscular Volume 74.2 fL (78.0-98.0); Mean Platelet Volume 7.2 fL (7.4-10.4); Platelet Count 71 thou/uL (130-400); Red Blood Cell (RBC) Count 3.25 mill/uL (4.70-6.10); White Blood Cell (WBC) Count 3.3 thou/uL (4.8-10.8)
[2020-07-30 06:15] LABS: ALT (SGPT) 17 U/L (8-55); AST (SGOT) 28 U/L (5-34); Albumin 2.1 g/dL (3.5-5.0); Alkaline Phosphatase 331 U/L (40-110); Anion Gap 9 mmol/L (10-20); BUN (Urea Nitrogen) 4 mg/dL (8.4-25.7); Bilirubin, Total 4.1 mg/dL (0.2-1.2); Calc. Creatinine Clearance 179 mL/min (70-130); Calcium 7.7 mg/dL (7.8-10.44); Carbon Dioxide 21 mmol/L (22-29); Chloride 104 mmol/L (98-107); Estimated GFR-MDRD Greater than 90; Globulin 3.3 g/dL (2.4-3.5); Glucose 259 mg/dL (70-105); Potassium 3.6 mmol/L (3.5-5.1); Protein, Total 5.4 g/dL (6.0-8.3); Sodium 130 mmol/L (136-145)
[2020-07-30] MEDS: Potassium Chloride 10 MEQ TAB PO SCH (09:17)
[2020-07-30] MEDS: Gabapentin 300 MG CAP PO SCH (09:17)
[2020-07-30] MEDS: Ferrous Sulfate 325 MG TAB PO SCH (09:17)
[2020-07-30] MEDS: metFORMIN 500 MG TAB PO SCH (09:18)
[2020-07-30] MEDS: Sodium Bicarbonate Tab 325 MG TAB PO SCH ×3 (09:18→20:42)
[2020-07-30] MEDS: Bupropion 150 MG XL TAB PO SCH (09:18)
[2020-07-30] MEDS: Nadolol 40 MG TAB PO SCH (09:19)
[2020-07-30] MEDS: Spironolactone 25 MG TAB PO SCH ×2 (09:19→20:42)
[2020-07-30] MEDS ORDERED: glipiZIDE 5 MG TAB PO SCH (09:30)
[2020-07-30] MEDS: Pantoprazole 40 MG VIAL IVP SCH ×2 (09:37→20:42)
[2020-07-30] MEDS: Sodium Chloride 1 GM TAB PO SCH ×3 (09:37→20:42)
--- NOTE | 2020-07-30 13:29 | PDOC.HOSPP ---
- Subjective Encounter Date: 07/30/20 Encounter Time: 10:40 Subjective: Patient seen for follow-up regarding hyponatremia. Reports ongoing diarrhea. Denies chest pain or shortness of breath. - Objective Vital Signs & Weight: Vital Signs (12 hours) Temp Pulse Resp BP Pulse Ox 07/30/20 12:16 98.5 F 83 22 H 109/57 L 100 07/30/20 07:52 98.6 F 84 24 H 115/63 99 07/30/20 07:24 98.8 F 85 16 120/62 99 Weight Admit Weight 204 lb Weight 204 lb I&O: 07/29/20 07/30/20 07/31/20 06:59 06:59 06:59 Intake Total 800 1230 Balance 800 1230 Result Diagrams: 07/30/20 05:28 07/30/20 05:28 Additional Labs: Accuchecks 07/30/20 07/29/20 07/29/20 11:23 20:32 16:33 POC Glucose 196 H 228 H 183 H I reviewed patient's labs and MAR Hospitalist ROS - Review of Systems Cardiovascular: denies: chest pain, palpitations, orthopnea, paroxysmal noc. d yspnea, edema, light headedness, other Gastrointestinal: reports: diarrhea. denies: nausea, vomiting, abdominal pain, constipation, melena, hematochezia - Medication Medications: Active Medications Generic Name Dose Route Start Last Admin Trade Name Freq PRN Reason Stop Dose Admin Bupropion HCl 150 mg 07/27/20 09:00 07/30/20 09:18 Bupropion 150 Mg Xl Tab PO 150 mg Q24HR HARPREET Administration Ferrous Sulfate 325 mg 07/29/20 08:00 07/30/20 09:17 Ferrous Sulfate 325 Mg Tab PO 325 mg QAM-WM HARPREET Administration Gabapentin 300 mg 07/27/20 09:00 07/30/20 09:17 Gabapentin 300 Mg Cap PO 300 mg Q24HR HARPREET Administration Insulin Human Lispro 0 units 07/27/20 10:58 07/30/20 12:20 Humalog 300 Units/3 Ml Vial SC 2 unit .MILD SLIDING SCALE PRN Administration Mild Correctional Scale Melatonin 3 mg 07/26/20 18:32 07/29/20 22:39 Melatonin 3 Mg Tab PO 3 mg HS PRN Administration Insomnia Nadolol 20 mg 07/27/20 09:00 07/30/20 09:19 Nadolol 40 Mg Tab PO 20 mg DAILY HARPREET Administration Ondansetron HCl 4 mg 07/26/20 06:05 07/26/20 06:17 Ondansetron Pf 4 Mg/2 Ml Vial IVP 4 mg Q6H PRN Administration Nausea/Vomiting Pantoprazole Sodium 40 mg 07/26/20 09:00 07/30/20 09:37 Pantoprazole 40 Mg Vial IVP 40 mg Q12HR HARPREET Administration Potassium Chloride 10 meq 07/28/20 09:00 07/30/20 09:17 Potassium Chloride 10 Meq Tab PO 10 meq DAILY HARPREET Administration Sodium Bicarbonate 650 mg 07/27/20 15:00 07/30/20 09:18 Sodium Bicarbonate Tab 325 Mg Tab PO 650 mg TID HARPREET Administration Sodium Chloride 10 ml 07/26/20 00:28 07/29/20 09:12 Flush - Normal Saline 10 Ml Syringe IVF 10 ml Q12HR PRN Administration Saline Flush Sodium Chloride 1 gm 07/28/20 15:00 07/30/20 09:37 Sodium Chloride 1 Gm Tab PO 1 gm TID HARPREET Administration Spironolactone 50 mg 07/27/20 21:00 07/30/20 09:19 Spironolactone 25 Mg Tab PO 50 mg BID HARPREET Administration - Exam Eye: scleral icterus ENT: normocephalic atraumatic Neck: supple Heart: RRR Respiratory: no wheezes, normal chest expansion Gastrointestinal: soft, non-tender Skin: no rashes Musculoskeletal: normal tone, normal strength Psychiatric: normal affect Hosp A/P - Plan -Assessment (1) Hyponatremia Code(s): E87.1 - HYPO-OSMOLALITY AND HYPONATREMIA Status: Acute (2) Microcytic anemia Code(s): D50.9 - IRON DEFICIENCY ANEMIA, UNSPECIFIED Status: Acute (3) Bacteremia Status: Ruled out (4) Cirrhosis, alcoholic Code(s): K70.30 - ALCOHOLIC CIRRHOSIS OF LIVER WITHOUT ASCITES Status: Chronic Qualifiers: Ascites presence: without ascites Qualified Code(s): K70.30 - Alcoholic cir rhosis of liver without ascites (5) History of peptic ulcer disease Code(s): Z87.11 - PERSONAL HISTORY OF PEPTIC ULCER DISEASE Status: Chronic (6) DM type 2 (diabetes mellitus, type 2) Status: Chronic Qualifiers: Diabetes mellitus detention insulin use: without detention use Diabetes mellitus complication status: without complication Qualified Code(s): E11.9 - Type 2 diabetes mellitus without complications (7) Intractable nausea and vomiting Code(s): R11.2 - NAUSEA WITH VOMITING, UNSPECIFIED Status: Resolved - Plan Sodium 130 today. Stool test for C. difficile pending. 2D echocardiogram pending Status post EGD and colonoscopy, continue iron
--- NOTE | 2020-07-30 17:29 | PDOC.NEPPN ---
- Subjective Encounter Date: 07/30/20 Subjective: Seen in follow up for hyponatremia. Has liver cirrhosis. No new problem. Tolerating oral intake. - Objective Vital Signs & Weight: Vital Signs (12 hours) Temp Pulse Resp BP Pulse Ox 07/30/20 12:16 98.5 F 83 22 H 109/57 L 100 07/30/20 07:52 98.6 F 84 24 H 115/63 99 07/30/20 07:24 98.8 F 85 16 120/62 99 Weight Admit Weight 204 lb Weight 204 lb I&O: 07/29/20 07/30/20 07/31/20 06:59 06:59 06:59 Intake Total 800 1230 Balance 800 1230 Result Diagrams: 07/30/20 05:28 07/30/20 05:28 Additional Labs: Accuchecks 07/30/20 07/30/20 07/29/20 16:06 11:23 20:32 POC Glucose 128 H 196 H 228 H Nephrology ROS - Medication Medications: Active Medications Generic Name Dose Route Start Last Admin Trade Name Freq PRN Reason Stop Dose Admin Bupropion HCl 150 mg 07/27/20 09:00 07/30/20 09:18 Bupropion 150 Mg Xl Tab PO 150 mg Q24HR HARPREET Administration Ferrous Sulfate 325 mg 07/29/20 08:00 07/30/20 09:17 Ferrous Sulfate 325 Mg Tab PO 325 mg QAM-WM HARPREET Administration Gabapentin 300 mg 07/27/20 09:00 07/30/20 09:17 Gabapentin 300 Mg Cap PO 300 mg Q24HR HARPREET Administration Insulin Human Lispro 0 units 07/27/20 10:58 07/30/20 12:20 Humalog 300 Units/3 Ml Vial SC 2 unit .MILD SLIDING SCALE PRN Administration Mild Correctional Scale Melatonin 3 mg 07/26/20 18:32 07/29/20 22:39 Melatonin 3 Mg Tab PO 3 mg HS PRN Administration Insomnia Nadolol 20 mg 07/27/20 09:00 07/30/20 09:19 Nadolol 40 Mg Tab PO 20 mg DAILY HARPREET Administration Ondansetron HCl 4 mg 07/26/20 06:05 07/26/20 06:17 Ondansetron Pf 4 Mg/2 Ml Vial IVP 4 mg Q6H PRN Administration Nausea/Vomiting Pantoprazole Sodium 40 mg 07/26/20 09:00 07/30/20 09:37 Pantoprazole 40 Mg Vial IVP 40 mg Q12HR HARPREET Administration Potassium Chloride 10 meq 07/28/20 09:00 07/30/20 09:17 Potassium Chloride 10 Meq Tab PO 10 meq DAILY HARPREET Administration Sodium Bicarbonate 650 mg 07/27/20 15:00 07/30/20 15:03 Sodium Bicarbonate Tab 325 Mg Tab PO 650 mg TID HARPREET Administration Sodium Chloride 10 ml 07/26/20 00:28 07/29/20 09:12 Flush - Normal Saline 10 Ml Syringe IVF 10 ml Q12HR PRN Administration Saline Flush Sodium Chloride 1 gm 07/28/20 15:00 07/30/20 15:03 Sodium Chloride 1 Gm Tab PO 1 gm TID HARPREET Administration Spironolactone 50 mg 07/27/20 21:00 07/30/20 09:19 Spironolactone 25 Mg Tab PO 50 mg BID HARPREET Administration - Exam General Appearance: awake alert Eye: PERRL ENT: normocephalic atraumatic, moist mucosa Neck: symmetric, no JVD Respiratory: CTAB Cardiovascular: RRR Heart - other findings: systolic murmur noted Gastrointestinal: soft, non-tender, non-distended, normal bowel sounds Extremities: no cyanosis Extremities - other findings: Left leg mild to moderate edema and chronic venous stasis changes noted Neurological: CN's grossly intact, no focal deficits Neurological - other findings: hard of hearing PSYCH: A&O x 3 Nephrology Results - Labs Result Diagrams: 07/30/20 05:28 07/30/20 05:28 Lab results: WBC 3.3 thou/uL (4.8-10.8) L 07/30/20 05:28 Hgb 7.0 g/dL (14.0-18.0) L 07/30/20 05:28 Hct 24.1 % (42.0-52.0) L 07/30/20 05:28 MCV 74.2 fL (78.0-98.0) L 07/30/20 05:28 Plt Count 71 thou/uL (130-400) L 07/30/20 05:28 Neutrophils % 57.0 % (42.0-75.0) 07/30/20 05:28 Band Neuts % (Manual) 2 % (5-11) L 07/29/20 07:47 Sodium 130 mmol/L (136-145) L 07/30/20 05:28 Potassium 3.6 mmol/L (3.5-5.1) 07/30/20 05:28 Chloride 104 mmol/L (98-107) 07/30/20 05:28 Carbon Dioxide 21 mmol/L (22-29) L 07/30/20 05:28 BUN 4 mg/dL (8.4-25.7) L 07/30/20 05:28 Creatinine 0.64 mg/dL (0.7-1.3) L 07/30/20 05:28 Glucose 259 mg/dL (70-105) H 07/30/20 05:28 Calcium 7.7 mg/dL (7.8-10.44) L 07/30/20 05:28 Total Bilirubin 4.1 mg/dL (0.2-1.2) H 07/30/20 05:28 AST 28 U/L (5-34) 07/30/20 05:28 ALT 17 U/L (8-55) 07/30/20 05:28 Alkaline Phosphatase 331 U/L (40-110) H 07/30/20 05:28 Troponin I 0.023 ng/mL (< 0.028) 07/25/20 Unknown Serum Total Protein 5.4 g/dL (6.0-8.3) L 07/30/20 05:28 Albumin 2.1 g/dL (3.5-5.0) L 07/30/20 05:28 Lipase 23 U/L (8-78) 07/25/20 Unknown Urine Ketones Negative mg/dL (Negative) 07/26/20 11:45 Urine Blood 1+ (Negative) A 07/26/20 11:45 Urine Nitrite Negative (Negative) 07/26/20 11:45 Ur Leukocyte Esterase Negative Greg/uL (Negative) 07/26/20 11:45 Urine RBC 4-6 HPF (0-3) A 07/26/20 11:45 Urine WBC 0-3 HPF (0-3) 07/26/20 11:45 Ur Squamous Epith Cells 0-3 HPF (0-3) 07/26/20 11:45 Urine Bacteria None Seen HPF (None Seen) 07/26/20 11:45 Sodium 130 mmol/L (136-145) L 07/30/20 05:28 Potassium 3.6 mmol/L (3.5-5.1) 07/30/20 05:28 Chloride 104 mmol/L (98-107) 07/30/20 05:28 Carbon Dioxide 21 mmol/L (22-29) L 07/30/20 05:28 Anion Gap 9 mmol/L (10-20) L 07/30/20 05:28 BUN 4 mg/dL (8.4-25.7) L 07/30/20 05:28 Creatinine 0.64 mg/dL (0.7-1.3) L 07/30/20 05:28 Glucose 259 mg/dL (70-105) H 07/30/20 05:28 Calcium 7.7 mg/dL (7.8-10.44) L 07/30/20 05:28 Magnesium 1.4 mg/dL (1.6-2.6) L 07/29/20 07:47 Albumin 2.1 g/dL (3.5-5.0) L 07/30/20 05:28 Nephrology AP PN - Plan ASSESSMENT: Hyponatremia: Due to volume depletion with appropriate antidiuretic hormone secretion superimposed on 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 Sodium is down today at 130 from 131 yesterday Metabolic acidosis: Most likely due to liver cirrhosis as well as abdominal pathology and sepsis. Use of metformin may be contributory. Hypokalemia Hypomagnesemia Hypocalcemia Microcytic anemia: The patient has prior history of peptic ulcer disease with perforation, status post omental patch. Most likely related to gastrointestinal bleeding. Acute drop in hemoglobin S/p transfusion. Volume depletion/dehydration.Improving Hyperbilirubinemia. Sepsis of unclear etiology, given fever. Staph bacteremia alcoholic liver cirrhosis PLAN: Decrease free water intake further to 1000 cc/hr. Continue salt tablets Continue sodium bicarbonate therapy. Further treatment to follow depending on hospital course.
[2020-07-30] MEDS: Melatonin 3 MG TAB PO PRN (20:43)
[2020-07-31 05:29] LABS: #Eosinphils 0.2 thou/uL (0.0-0.7); #Lymphocytes 1.1 thou/uL (1.20-3.40); #Monocytes 0.5 thou/uL (0.11-0.59); #Neutrophils 2.4 thou/uL (1.40-6.50); %Basophils 0.3 % (0.0-1.0); %Eosinophils 4.6 % (0.0-10.0); %Lymphocytes 26.7 % (21.0-51.0); %Monocytes 12.3 % (0.0-10.0); %Neutrophils 56.2 % (42.0-75.0); Hemoglobin 6.9 g/dL (14.0-18.0); Mean Corpuscular HGB CONC 27.7 g/dL (32.0-36.0); Mean Corpuscular Hemoglobin 20.4 pg (27.0-31.0); Mean Corpuscular Volume 73.7 fL (78.0-98.0); Mean Platelet Volume 5.6 fL (7.4-10.4); Platelet Count 78 thou/uL (130-400); RBC Distribution Width 20.1 % (11.5-14.5); Red Blood Cell (RBC) Count 3.38 mill/uL (4.70-6.10); White Blood Cell (WBC) Count 4.2 thou/uL (4.8-10.8)
[2020-07-31 05:47] LABS: ALT (SGPT) 15 U/L (8-55); AST (SGOT) 28 U/L (5-34); Albumin 2.3 g/dL (3.5-5.0); Alkaline Phosphatase 377 U/L (40-110); Anion Gap 9 mmol/L (10-20); BUN (Urea Nitrogen) 5 mg/dL (8.4-25.7); Bilirubin, Total 4.5 mg/dL (0.2-1.2); Calc. Creatinine Clearance 194 mL/min (70-130); Calcium 8.2 mg/dL (7.8-10.44); Carbon Dioxide 23 mmol/L (22-29); Chloride 103 mmol/L (98-107); Estimated GFR-MDRD Greater than 90; Globulin 3.2 g/dL (2.4-3.5); Glucose 143 mg/dL (70-105); Potassium 3.6 mmol/L (3.5-5.1); Protein, Total 5.5 g/dL (6.0-8.3); Sodium 131 mmol/L (136-145)
[2020-07-31] MEDS: HumaLOG 300 UNITS/3 ML VIAL SC PRN ×2 (05:50→12:56)
--- NOTE | 2020-07-31 06:54 | PDOC.NEPPN ---
- Subjective Encounter Date: 07/31/20 Encounter Time: 06:53 Subjective: Seen in follow up for hyponatremia. No new problem. - Objective Vital Signs & Weight: Vital Signs (12 hours) Temp Pulse Resp BP Pulse Ox 07/30/20 20:00 100 07/30/20 19:32 98.2 F 83 16 120/70 100 Weight Admit Weight 204 lb Weight 204 lb I&O: 07/29/20 07/30/20 07/31/20 06:59 06:59 06:59 Intake Total 800 1230 1070 Balance 800 1230 1070 Result Diagrams: 07/31/20 05:06 07/31/20 05:06 Additional Labs: Accuchecks 07/31/20 07/30/20 07/30/20 05:49 19:38 16:06 POC Glucose 177 H 99 128 H 07/30/20 11:23 POC Glucose 196 H Nephrology ROS - Medication Medications: Active Medications Generic Name Dose Route Start Last Admin Trade Name Freq PRN Reason Stop Dose Admin Bupropion HCl 150 mg 07/27/20 09:00 07/30/20 09:18 Bupropion 150 Mg Xl Tab PO 150 mg Q24HR HARPREET Administration Ferrous Sulfate 325 mg 07/29/20 08:00 07/30/20 09:17 Ferrous Sulfate 325 Mg Tab PO 325 mg QAM-WM HARPREET Administration Gabapentin 300 mg 07/27/20 09:00 07/30/20 09:17 Gabapentin 300 Mg Cap PO 300 mg Q24HR HARPREET Administration Insulin Human Lispro 0 units 07/27/20 10:58 07/31/20 05:50 Humalog 300 Units/3 Ml Vial SC 2 unit .MILD SLIDING SCALE PRN Administration Mild Correctional Scale Melatonin 3 mg 07/26/20 18:32 07/30/20 20:43 Melatonin 3 Mg Tab PO 3 mg HS PRN Administration Insomnia Nadolol 20 mg 07/27/20 09:00 07/30/20 09:19 Nadolol 40 Mg Tab PO 20 mg DAILY HARPREET Administration Ondansetron HCl 4 mg 07/26/20 06:05 07/26/20 06:17 Ondansetron Pf 4 Mg/2 Ml Vial IVP 4 mg Q6H PRN Administration Nausea/Vomiting Pantoprazole Sodium 40 mg 07/26/20 09:00 07/30/20 20:42 Pantoprazole 40 Mg Vial IVP 40 mg Q12HR HARPREET Administration Potassium Chloride 10 meq 07/28/20 09:00 07/30/20 09:17 Potassium Chloride 10 Meq Tab PO 10 meq DAILY HARPREET Administration Sodium Bicarbonate 650 mg 07/27/20 15:00 07/30/20 20:42 Sodium Bicarbonate Tab 325 Mg Tab PO 650 mg TID HARPREET Administration Sodium Chloride 10 ml 07/26/20 00:28 07/29/20 09:12 Flush - Normal Saline 10 Ml Syringe IVF 10 ml Q12HR PRN Administration Saline Flush Sodium Chloride 1 gm 07/28/20 15:00 07/30/20 20:42 Sodium Chloride 1 Gm Tab PO 1 gm TID HARPREET Administration - Exam General Appearance: awake alert ENT: normocephalic atraumatic, moist mucosa Neck: symmetric Respiratory: no wheezes, no ronchi, normal chest expansion Cardiovascular: RRR, murmur present Gastrointestinal: soft, non-tender, non-distended, normal bowel sounds Extremities - other findings: mild righg and moderate left leg edema Neurological: CN's grossly intact, no focal deficits Neurological - other findings: Hard of hearing. PSYCH: A&O x 3 Nephrology Results - Labs Result Diagrams: 07/31/20 05:06 07/31/20 05:06 Lab results: WBC 4.2 thou/uL (4.8-10.8) L 07/31/20 05:06 Hgb 6.9 g/dL (14.0-18.0) L 07/31/20 05:06 Hct 24.9 % (42.0-52.0) L 07/31/20 05:06 MCV 73.7 fL (78.0-98.0) L 07/31/20 05:06 Plt Count 78 thou/uL (130-400) L 07/31/20 05:06 Neutrophils % 56.2 % (42.0-75.0) 07/31/20 05:06 Band Neuts % (Manual) 2 % (5-11) L 07/29/20 07:47 Sodium 131 mmol/L (136-145) L 07/31/20 05:06 Potassium 3.6 mmol/L (3.5-5.1) 07/31/20 05:06 Chloride 103 mmol/L (98-107) 07/31/20 05:06 Carbon Dioxide 23 mmol/L (22-29) 07/31/20 05:06 BUN 5 mg/dL (8.4-25.7) L 07/31/20 05:06 Creatinine 0.59 mg/dL (0.7-1.3) L 07/31/20 05:06 Glucose 143 mg/dL (70-105) H 07/31/20 05:06 Calcium 8.2 mg/dL (7.8-10.44) 07/31/20 05:06 Total Bilirubin 4.5 mg/dL (0.2-1.2) H 07/31/20 05:06 AST 28 U/L (5-34) 07/31/20 05:06 ALT 15 U/L (8-55) 07/31/20 05:06 Alkaline Phosphatase 377 U/L (40-110) H 07/31/20 05:06 Troponin I 0.023 ng/mL (< 0.028) 07/25/20 Unknown Serum Total Protein 5.5 g/dL (6.0-8.3) L 07/31/20 05:06 Albumin 2.3 g/dL (3.5-5.0) L 07/31/20 05:06 Lipase 23 U/L (8-78) 07/25/20 Unknown Urine Ketones Negative mg/dL (Negative) 07/26/20 11:45 Urine Blood 1+ (Negative) A 07/26/20 11:45 Urine Nitrite Negative (Negative) 07/26/20 11:45 Ur Leukocyte Esterase Negative Greg/uL (Negative) 07/26/20 11:45 Urine RBC 4-6 HPF (0-3) A 07/26/20 11:45 Urine WBC 0-3 HPF (0-3) 07/26/20 11:45 Ur Squamous Epith Cells 0-3 HPF (0-3) 07/26/20 11:45 Urine Bacteria None Seen HPF (None Seen) 07/26/20 11:45 Sodium 131 mmol/L (136-145) L 07/31/20 05:06 Potassium 3.6 mmol/L (3.5-5.1) 07/31/20 05:06 Chloride 103 mmol/L (98-107) 07/31/20 05:06 Carbon Dioxide 23 mmol/L (22-29) 07/31/20 05:06 Anion Gap 9 mmol/L (10-20) L 07/31/20 05:06 BUN 5 mg/dL (8.4-25.7) L 07/31/20 05:06 Creatinine 0.59 mg/dL (0.7-1.3) L 07/31/20 05:06 Glucose 143 mg/dL (70-105) H 07/31/20 05:06 Calcium 8.2 mg/dL (7.8-10.44) 07/31/20 05:06 Magnesium 1.4 mg/dL (1.6-2.6) L 07/29/20 07:47 Albumin 2.3 g/dL (3.5-5.0) L 07/31/20 05:06 Nephrology AP PN - Plan ASSESSMENT: Hyponatremia: Due to volume depletion with appropriate antidiuretic hormone secretion superimposed on 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 Sodium is up today [id number] to 131. Metabolic acidosis: Most likely due to liver cirrhosis as well as abdominal pathology and sepsis. Use of metformin may be contributory. Hypokalemia Hypomagnesemia Hypocalcemia Microcytic anemia: The patient has prior history of peptic ulcer disease with perforation, status post omental patch. Most likely related to gastrointestinal bleeding. Acute drop in hemoglobin S/p transfusion. Volume depletion/dehydration.Resolved. Hyperbilirubinemia. Sepsis of unclear etiology, given fever. Staph bacteremia Alcoholic liver cirrhosis Volume overload/leg edema PLAN: Start torsemide 10 mg daily Increase spironolactone to 100 mg bid Continue salt tablets Further treatment to follow depending on hospital course. Can be discharged from nephrology point of view. Out patient follo up in 1 to 2 weeks recommended.
[2020-07-31] MEDS ORDERED: glipiZIDE 5 MG TAB PO SCH (07:30)
[2020-07-31] MEDS: Ferrous Sulfate 325 MG TAB PO SCH (08:36)
[2020-07-31] MEDS: Nadolol 40 MG TAB PO SCH (08:36)
[2020-07-31] MEDS: Sodium Bicarbonate Tab 325 MG TAB PO SCH ×2 (08:36→16:12)
[2020-07-31] MEDS: Gabapentin 300 MG CAP PO SCH (08:36)
[2020-07-31] MEDS: Potassium Chloride 10 MEQ TAB PO SCH (08:36)
[2020-07-31] MEDS: Pantoprazole 40 MG VIAL IVP SCH (08:37)
[2020-07-31] MEDS: Sodium Chloride 1 GM TAB PO SCH ×2 (08:46→16:13)
[2020-07-31] MEDS ORDERED: Spironolactone 100 MG TAB PO SCH (09:00)
[2020-07-31] MEDS ORDERED: Torsemide 10 MG TAB PO SCH (09:00)
[2020-07-31] MEDS: Bupropion 150 MG XL TAB PO SCH (10:03)
[2020-07-31 15:45] VITALS: BP 111/56; TEMP 98.1
--- NOTE | 2020-07-31 22:56 | DIS ---
DATE OF ADMISSION: 07/26/2020 DATE OF DISCHARGE: 07/31/2020 PRIMARY CARE PROVIDER: Dr. Ludwig Cabezas. DISCHARGE DIAGNOSES: 1. Hyponatremia. 2. Microcytic anemia. 3. Hemorrhoids. 4. Bacteremia, likely contaminant. 5. Abnormal liver function tests. 6. COVID-19 PCR test negative. 7. COVID-19 immunoglobulin G antibody is nonreactive. CONDITION OF PATIENT ON THE DAY OF DISCHARGE: Stable. I assessed Mr. Crowley on the day of discharge. He denies any chest pain or shortness of breath. Vital signs are stable. S1 and S2 are heard, regular. Lungs are clear to auscultation bilaterally. CONSULTATIONS DURING THIS HOSPITALIZATION: Nephrology, Dr. Rausch; Gastroenterology, Dr. Yadav; and Infectious Diseases, Dr. Shane. DISCHARGE MEDICATIONS: 1. Gabapentin 300 mg daily. 2. Nadolol 20 mg daily. 3. Bupropion 150 mg daily. 4. Torsemide, started during this admission, 10 mg daily. 5. Ferrous sulfate, started during this admission, 325 mg daily. 6. Glipizide, started during this admission, 5 mg daily. 7. Sodium chloride 1 g three times a day for at least two weeks. 8. Spironolactone dose was increased to 100 mg 2 times a day. Potassium chloride and metformin were discontinued. HOSPITAL COURSE: Mr. Crowley is a pleasant 50-year-old gentleman, who was admitted to [facility] for hyponatremia and anemia on July 26, 2020. Please refer to Dr. Crump's, hospitalist, history and physical note dated July 26, 2020, for further details. He was seen by Nephrology Service. He was started on fluid restriction to 1000 mL a day. He was also seen by Gastroenterology Service. On July 28, he underwent colonoscopy, which showed large hemorrhoids. Otherwise, the colonoscopy was normal. The mucosa was somewhat hyperemic, edematous throughout the colon. 2/2 blood cultures grew Staphylococcus sciuri. He was started on antibiotics and Infectious Diseases Service was consulted. It was felt that this was a contaminant. Antibiotics were discontinued and patient continued to improve. Stool studies were negative for Campylobacter and E coli, shiga toxins 1 and 2. Stool lactoferrin was negative. Patient received 1 unit of packed RBC transfusion after admission. He is receiving a second unit on the day of discharge. Hemoglobin was 6.9 prior to transfusing packed RBC. On the day of discharge, he has white count of 4200, hemoglobin 6.9, and platelet count 78,000. Sodium 131, potassium 3.6, and creatinine 0.59. Total bilirubin is 4.5, AST 28, ALT 15, and alkaline phosphatase 377. He has been advised to check his blood sugar and blood pressure as well as heart rate 3 times a day and show the readings to primary care provider. He has also been advised to abstain from alcohol. POST ACUTE CARE FOLLOWUP: With primary care provider in 3 days and with Nephrology, Dr. Rausch, in 10 days. Diet: DIABETIC: And fluid restriction to 1000 mL a day. ACTIVITY: As tolerated. DISCHARGE DESTINATION: Home. TIME SPENT: Total amount of time spent coordinating this discharge: Thirty-two minutes. Job ID: [id number] RAVI
--- NOTE | 2020-08-02 23:30 | PQF ---
Dear : Herson Aceves Date 08/02/20 Please exercise your independent, professional judgment in responding to the clarification form. Clinical indicators are provided on the bottom of this form for your review Can you please further clarify the conflicting diagnosis? Please check appropriate box(es): Conflicting documentation was noted in the Medical Record; please clarify if patient is being treated/monitored for: [ ] Sepsis of unknown etiology [x ] No sepsis [ ] Other diagnosis please specify [ ] Unable to determine Physician Signature: Date/Time: For continuity of documentation, please document condition throughout progress notes and discharge summary. Thank You. To be completed by CDI/Coding staff for physician review: Present Clinical Indicators - Signs / Symptoms / Labs Results and Location in Medical Record [ x ] Patient has no leukocytosis and does not meet criteria for Sepsis H and P pg.1 [ x ] Metabolic acidosis: most likely due to liver cirrhosis as well as abdominal pain pathology and sepsis Consult Dr. Rausch pg.3 [ x ] Sepsis of unclear etiology Consult Dr. Rausch pg.3 [ x ] Staphylococcus sciuri is more likely contaminant Consult pg. 3 Dr. Shane 07/29 [ x ] Sepsis of unclear etiology, given fever Nephro PN 07/31 Dr. Rausch [ x ] Bacteremia likely contaminant DS pg.1 Present Risk Factors Results and Location in Medical Record [ x ] Liver cirrhosis H and P pg.1 [ x ] Anemia DS pg.1 [ x ] Hyponatremia DS pg.1 [ x ] Former smoker H and P pg.1 Present Treatments Results and Location in Medical Record [ x ] IV Fluids MAR [ x ] IV Antibiotics MAR [ x ] Infectious Consult 07/28 [ x ] Abdomen/Pelvis CT 07/26 [ x ] Blood culture Microbiology 07/26 CDS/Price Checker Signature: Dusty Luna Phone #: ext [phone] Date 08/02/20 RAVI
== END 2020-07-31 16:19 | disposition home or self-care (01) | DRG 644 ==
LOC: ERS 21:42 → T4-A 07-26 00:11 → OBSVTOIN 07-26 00:11
PROVIDERS: ADMIT Internal Medicine; ATTEND Internal Medicine
PROC: 30233N1 Transfusion of Nonautologous Red Blood Cells into Peripheral Vein, Percutaneous Approach (ICD-10-PCS; 2020-07-27)
PROC: 0DB68ZX Excision of Stomach, Via Natural or Artificial Opening Endoscopic, Diagnostic (ICD-10-PCS; principal; 2020-07-28)
PROC: 0DJD8ZZ Inspection of Lower Intestinal Tract, Via Natural or Artificial Opening Endoscopic (ICD-10-PCS; 2020-07-28)
DX: E22.2 Syndrome of inappropriate secretion of antidiuretic hormone (principal); K76.6 Portal hypertension; E87.2 Acidosis; E51.2 Wernicke's encephalopathy; Z20.828 Contact with and (suspected) exposure to other viral communicable diseases; I10 Essential (primary) hypertension; E11.9 Type 2 diabetes mellitus without complications; F32.9 Major depressive disorder, single episode, unspecified; K70.30 Alcoholic cirrhosis of liver without ascites; F41.9 Anxiety disorder, unspecified; D50.9 Iron deficiency anemia, unspecified; G47.33 Obstructive sleep apnea (adult) (pediatric); F17.210 Nicotine dependence, cigarettes, uncomplicated; K64.9 Unspecified hemorrhoids; K31.89 Other diseases of stomach and duodenum; F10.20 Alcohol dependence, uncomplicated; E87.6 Hypokalemia; E83.42 Hypomagnesemia; E83.51 Hypocalcemia; E87.70 Fluid overload, unspecified; Z88.0 Allergy status to penicillin; Z79.899 Other long term (current) drug therapy; Z79.84 Long term (current) use of oral hypoglycemic drugs; Z87.11 Personal history of peptic ulcer disease; Z88.8 Allergy status to other drugs, medicaments and biological substances; Z88.1 Allergy status to other antibiotic agents; Z90.49 Acquired absence of other specified parts of digestive tract
CPT/HCPCS: 36415; 36416; 36430; 71045; 74177; 80053; 81001; 82274; 82306; 82728; 83540; 83550; 83630; 83690; 83735; 83930; 83935; 84300; 84484; 85025; 86769; 86850; 86900; 86901; 87040; 87045; 87046; 87077; 87149; 87186; 87427; 87449; 87635; 88305; 88312; 93306; 96361; 96365; 96366; 96374; 96375; C9113; G0378; J0690; J1940; J1956; J2020; J2405; J2704; J3475; J7050; P9016; Q9967; U0003

== ENCOUNTER 2020-08-09 19:14 | Inpatient (IN) | payer OTHER, SELFPAY ==
[~2020-08-09 19:14] MED LIST: Iopamidol 370 76% 100 ML VIAL ONE
--- NOTE | 2020-08-09 20:33 | RAD ---
AP view of the pelvis INDICATION: History of fall with pelvic pain COMPARISON: None. FINDINGS: Bones: No acute fracture or subluxation is evident. Bone mineralization appears within normal limits. Hips: There is mild osteoarthrosis of the right and left hip SI joints and symphysis pubis: Normal appearing. Intrapelvic contents: Within normal limits. IMPRESSION: No acute osseous abnormality.
[2020-08-09] MEDS ORDERED: Clindamycin/D5W 900 mg/50 ml Premix Bag ONE (21:30)
[2020-08-09] MEDS ORDERED: Cefepime 2 GM VIAL ONE (21:30)
--- NOTE | 2020-08-09 21:45 | CT ---
CT OF THE ABDOMEN AND PELVIS WITH IV CONTRAST INDICATION: Abdominal pain with left lower extremity swelling COMPARISON: Prior CT abdomen and pelvis dated July 26, 2020 FINDINGS: ABDOMEN: Lung bases: There are small bilateral pleural effusions with bibasilar atelectasis Liver: There is cirrhotic morphology of the liver. Small hypodensities within the liver are stable. Gallbladder: Surgically absent Pancreas: Normal. Adrenal glands: Normal. Spleen: Enlarged measuring 17 cm. There are numerous splenic and gastroesophageal varicosities Kidneys and ureters: Exophytic hypodense lesion involving the superior pole left kidney is stable. Ti ny hypodensity involving inferior pole left kidney stable. Right kidney is normal-appearing. Vasculature: There are mild vascular calcifications seen involving the visualized vasculature. Lymph nodes:No lymphadenopathy. Free fluid in abdomen:There is mild ascites scattered within the abdomen and pelvis, slightly more pr onounced than on the prior exam PELVIS: Small and large bowel: There is fluid density now filling the colon which is nonspecific. The asymmet willie wall thickening involving the mid to lower rectum on the prior examination is not appreciated on the current exam. Small bowel is of normal caliber. Appendix:Not definitely seen Bladder: Normal. Rectal and perirectal soft tissues:There is fluid density now filling the rectum Reproductive structures: Normal. Free fluid in pelvis: Mild free fluid is seen within the pelvis, slightly more pronounced on the prio r exam Lymphadenopathy pelvis: No lymphadenopathy is evident. Osseous structures: No acute osseous abnormality. No destructive osteolytic or osteoblastic lesion i s identified. There is scattered degenerative and osteoarthritic changes. Soft tissues:There is slight worsening anasarca IMPRESSION: 1. Fluid density seen within the colon and rectum may reflect a diarrheal state or mild colitis. Say mmend correlation with clinical exam. 2. New tiny bilateral pleural effusions and bibasilar atelectasis. 3. Worsening mild ascites and anasarca. 4. Stable findings of cirrhosis with portal hypertension. Hepatic hypodensities and left renal hypode nsities are stable. 5. Previously seen asymmetric wall thickening involving the right lateral aspect of the mid to lower rectum is not appreciated on the current exam. Appropriate colon screening after abatement of the patient's acute symptoms is recommended.
[2020-08-09 21:51] LABS: Bacteria/HPF None Seen HPF (None Seen); Bilirubin Negative (Negative); Blood, Urine 1+ (Negative); Clarity Clear (Clear); Glucose, Urine (Dipstick) Normal (Negative); Ketone, Urine Negative (Negative); Leukocyte Negative Leu/uL (Negative); Nitrite Negative (Negative); Protein, Urine (Dipstick) Negative (Neg-Trace); RBC/HPF 0-3 HPF (0-3); Specific Gravity, Urine 1.008 (1.002-1.036); Squamous Epithelial None Seen HPF (0-3); WBC/HPF 0-3 HPF (0-3); pH, Urine 5.5 (5.0-9.0)
--- NOTE | 2020-08-09 22:06 | RAD ---
Chest AP view INDICATION: History of shortness of breath COMPARISON: Prior exam dated July 27, 2020 FINDINGS: Lungs: There is bilateral perihilar interstitial opacities that appears slightly pronounced but stab le to the prior exam. Findings are suspicious for mild interstitial edema. Cardiac silhouette: There is stable moderate cardiomegaly Pulmonary vasculature: There is stable moderate pulmonary vascular congestion Pleural spaces: There are small bilateral pleural effusions Upper abdomen: No abnormality seen. Osseous structures: ACDF plate is seen involving lower cervical spine. No acute osseous abnormality. Additional findings: None. IMPRESSION: Findings suspicious for mild CHF or volume overload.
[2020-08-09 23:14] LABS: #Lymphocytes 0.8 thou/uL (1.20-3.40); #Monocytes 1.3 thou/uL (0.11-0.59); #Neutrophils 8.5 thou/uL (1.40-6.50); %Basophils 0.4 % (0.0-1.0); %Eosinophils 0.2 % (0.0-10.0); %Lymphocytes 7.8 % (21.0-51.0); %Monocytes 12.4 % (0.0-10.0); %Neutrophils 79.2 % (42.0-75.0); Hemoglobin 8.1 g/dL (14.0-18.0); Mean Corpuscular HGB CONC 30.4 g/dL (32.0-36.0); Mean Corpuscular Hemoglobin 22.3 pg (27.0-31.0); Mean Corpuscular Volume 73.1 fL (78.0-98.0); Mean Platelet Volume 6.4 fL (7.4-10.4); Platelet Count 78 thou/uL (130-400); RBC Distribution Width 23.4 % (11.5-14.5); Red Blood Cell (RBC) Count 3.66 mill/uL (4.70-6.10); White Blood Cell (WBC) Count 10.7 thou/uL (4.8-10.8)
[2020-08-09 23:19] LABS: INR-International Normal Ratio 2.8; PTT 42.9 sec (22.9-36.1); Prothrombin Time 29.7 sec (12.0-14.7)
[2020-08-09 23:32] LABS: SARS-CoV-2 NAA Rapid Test Not Detected (NotDetected)
[2020-08-09 23:34] LABS: D-Dimer Test 9.14 *mcg/mL (0.27-0.43)
[2020-08-09 23:36] LABS: ALT (SGPT) 16 U/L (8-55); AST (SGOT) 44 U/L (5-34); Albumin 2.2 g/dL (3.5-5.0); Alkaline Phosphatase 109 U/L (40-110); Anion Gap 15 mmol/L (10-20); BUN (Urea Nitrogen) 7 mg/dL (8.4-25.7); Bilirubin, Total 8.3 mg/dL (0.2-1.2); Calc. Creatinine Clearance 0 mL/min (70-130); Calcium 7.4 mg/dL (7.8-10.44); Carbon Dioxide 17 mmol/L (22-29); Chloride 101 mmol/L (98-107); Estimated GFR-MDRD Greater than 90; Globulin 3.8 g/dL (2.4-3.5); Sodium 130 mmol/L (136-145)
[2020-08-09 23:48] LABS: Glucose 41 mg/dL (70-105)
[2020-08-09 23:59] LABS: CKMB 1.9 ng/mL (0-6.6)
[2020-08-10] MEDS ORDERED: Furosemide 20 MG/2 ML VIAL ONE (00:50)
[2020-08-10] MEDS ORDERED: Ondansetron PF 4 MG/2 ML Vial IVP PRN ×2 (01:45→10:40)
[2020-08-10] MEDS ORDERED: Ondansetron ODT 4 MG TAB SL PRN (01:45)
[2020-08-10] MEDS: Lactated Ringer's 1,000 ML IV SCH ×2 (02:34→08:31)
[2020-08-10] MEDS ORDERED: Electrolyte Replacement Protoc 1 EACH EACH FS SCH (03:45)
[2020-08-10] MEDS ORDERED: Potassium Chloride 20 MEQ TAB PO SCH (04:00)
[2020-08-10] MEDS ORDERED: Clindamycin 450 MG in Sodium Chloride 0.9% 100 ML IVPB SCH (06:00)
[2020-08-10 06:47] LABS: Troponin I 0.254 ng/mL (< 0.028)
[2020-08-10] MEDS ORDERED: Magnesium 2 GM/50 ML 2 GM in Premix Bag 1 BAG IVPB SCH (08:00)
[2020-08-10] MEDS ORDERED: Furosemide 40 MG/4 ML VIAL SLOW IVP SCH (08:30)
[2020-08-10] MEDS ORDERED: Cefepime 2 GM in Sodium Chloride 0.9% 100 ML IVPB SCH ×2 (09:00→21:00)
[2020-08-10 09:26] LABS: INR-International Normal Ratio 2.7; Prothrombin Time 29.6 sec (12.0-14.7)
--- NOTE | 2020-08-10 09:49 | CT ---
PRELIMINARY REPORT/[facility]/AFTER HOURS PROCEDURE CTA CHEST WITH INTRAVENOUS CONTRAST: CLINICAL HISTORY: Elevated D-dimer; Patient also reports generally feeling unwell, with chills at home. COMPARISON: CT abdomen and pelvis with contrast from 07/26/2020 at 12:[address] chest and abdomen and pelvis with contrast from 05/02/2020 at 06:43 PM CDT. FINDINGS PULMONARY ARTERIES: No large central/saddle pulmonary embolus is seen. Evaluation of the segmental/foote bsegmental pulmonary artery branches is significantly limited due to respiratory motion artifact. St able nonspecific enlargement of the pulmonary trunk. AORTA: No thoracic aortic aneurysm or dissection is seen within the limitations due to motion artifac t. Scattered atherosclerotic calcifications. LUNGS: Respiratory motion artifact limits evaluation. Dependent hypoventilatory changes and linear a telectasis/scarring bilaterally. Minimal right lower lobe probable passive atelectasis. Mild peribronchial thickening. PLEURAL SPACES: No pleural effusion. No pneumothorax. HEART AND MEDIASTINUM: Cardiomegaly. Trace pericardial fluid. Coronary artery calcifications. LYMPH NODES: Scattered nonspecific top normal size mediastinal and hilar lymph nodes. BONES: Thoracic spondylosis. CHEST WALL AND UPPER ABDOMEN: Partially imaged moderate ascites. Cirrhosis. Scattered liver hypodensi ties are again seen. Surgically absent gallbladder. Splenomegaly. Numerous upper abdominal dilated po rtosystemic collaterals. Gynecomastia. IMPRESSION: 1. No large central/saddle pulmonary embolus is seen. Evaluation of the segmental/subsegmental pulmo nary artery branches is limited due to respiratory motion artifact. 2. Cardiomegaly and suggestion of early interstitial edema. 3. Cirrhosis and findings of portal hypertension in the visualized upper abdomen. ELECTRONICALLY SIGNED BY: Mike Messer MD Aug 10, 2020 2:03:02 AM CDT This report is intended for review by the ordering physician only, in accordance of law. If you recei ve this report in error, please call [facility] at [phone]. FINAL REPORT EMERGENT AFTER HOURS CT PULMONARY ANGIOGRAM WITH IV CONTRAST AND 3D MIP RECONSTRUCTIONS: IMPRESSION: I agree with the preliminary interpretation. CODE QA POS: MARIELY
[2020-08-10] MEDS ORDERED: Ondansetron ODT 4 MG TAB PO PRN (10:40)
[2020-08-10] MEDS ORDERED: Heparin 1,000 UNITS/ML VIAL ONE (12:17)
[2020-08-10] MEDS ORDERED: Dextrose 5% in Water 1,000 ML IV PRN (14:50)
[2020-08-10] MEDS ORDERED: Dextrose 50% Abboject 50 ML SYRINGE SLOW IVP PRN (14:50)
[2020-08-10] MEDS ORDERED: Iopamidol 370 76% 100 ML VIAL ONE (15:18)
[2020-08-10] MEDS: Furosemide 40 MG/4 ML VIAL SLOW IVP SCH (15:27)
[2020-08-10] MEDS: Sodium Chloride 1 GM TAB PO SCH ×2 (16:46→21:59)
[2020-08-10] MEDS: HumaLOG 300 UNITS/3 ML VIAL SC PRN (17:17)
--- NOTE | 2020-08-10 18:40 | CON ---
DATE OF CONSULTATION: 08/10/2020 REASON FOR CONSULT: Recurrent bacteremia, fall, and low back pain. HISTORY OF PRESENT ILLNESS: A 50-year-old, whom we had seen on July 28 when he presented with a history of alcoholism, liver cirrhosis, Wernicke encephalopathy, type 2 diabetes, and episode of MRSA bacteremia treated to completion and second one with group B strep. In April this year, he had a group B strep bacteremia of unknown primary site, so this time on July 28 he presented with a fever, nausea, vomiting, and he had thrombocytopenia, anemia and leukopenia, and 12% bands in the differential. SARS-CoV antibody negative and SARS-CoV RNA PCR negative. Blood culture showed Staphylococcus sciuri, 2/2 sets, but the specimens were noted as being obtained at the same time, so there is a question regarding possible contamination of the sample. So antimicrobial therapy were discontinued and eventually was discharged. At home, he started feeling poorly again, does not recall any temperature elevation, and of note, during the last admission, he had an echocardiogram which showed mild aortic regurgitation, sclerosis, but no vegetation. Now the latest echo showed aortic valve leaflets were thickened with a mass attached, highly suggestive of vegetation, and he has 2/2 sets of blood cultures positive again. The patient was sitting in the bed with in the room. He is awake and he does not appear very sick right now except for back pain. No headaches. No visual symptoms. No sore throat, odynophagia, dysphagia. No cough or chest pain. No abdominal pain. Voiding without difficulty. No joint symptoms. Edema in lower extremities as usual. MEDICAL HISTORY: Alcoholism, liver cirrhosis, portal hypertension, pyloric ulcer with rupture and repair, recurrent cellulitis in lower extremity, bacteremia due to MRSA, probably transient group B strep bacteremia and Staphylococcus sciuri bacteremia, felt to be contaminant, but now obviously probably associated with endocarditis. SOCIAL HISTORY: Still drinking daily, still smoking daily. . ALLERGIES: PENICILLIN WITH HIVES. MEDICATIONS: Had been on 1. Wellbutrin. 2. Lexapro. 3. Pepcid. 4. Insulin. 5. Zofran. 6. And now he is on cefepime. ALLERGIES: PENICILLIN, VANCOMYCIN, PIPER INHIBITORS, LISINOPRIL. FAMILY HISTORY: Noncontributory. PHYSICAL EXAMINATION: VITAL SIGNS: T-max 99.3, blood pressure 150/59, heart rate 94, respirations 16, and O2 saturation 94% on room air. SKIN: Shows of findings of stasis dermatitis in lower extremities with lymphedema. No lymphadenopathy. HEENT: He has slight icterus noted in sclera, sclera otherwise unremarkable. Pupils are equal. Conjunctivae somewhat pale. Oral cavity with numerous missing teeth. Atrophy of tongue papillae. NECK: Supple, no jugular venous distention. LUNGS: Completely clear to auscultation and percussion. HEART: S1, S2, regular rate. No S3 or S4. ABDOMEN: Not distended. No evidence of ascites. No bladder distention. No genital abnormalities. He has quite a bit of back tenderness in the lumbosacral spine area, particularly when he moves around, for example from sitting to the supine position and vice versa. NEUROLOGIC: He is oriented, follows commands. LABORATORY DATA: White cell count is 10.7, hemoglobin 8.1, platelets 78,000, 79% neutrophils. INR 2.8 and 2.7. D-dimer 9.14. Creatinine is 2.64, bilirubin 8.3. CRP 2.9. BNP 1930. Albumin 2.2. Urinalysis was normal except for urobilinogen. SARS-CoV RNA PCR negative. 2/2 sets of blood cultures with coagulase negative Staph, yet to be identified and susceptibility tested. He had a CT of the chest, angio with cirrhosis, cardiomegaly, early interstitial edema. The previous susceptibility of the Staphylococcus sciuri showed methicillin-susceptible Staphylococcus sciuri. ASSESSMENT: Cirrhosis due to alcoholism, diabetes type 2, associated with chronic pancreatitis, multiple episodes of bacteremia in the past and now Staphylococcus sciuri bacteremia with aortic valve endocarditis as the more likely scenario here. He did not have vegetation identified in the echo done just 2 weeks ago and now there is a clear-cut one per Dr. Warner and may have to do a EPIFANIO, but we will go ahead and start treating him with cefazolin 2 g q.8 hours, discontinue cefepime, and treat for at least 6 weeks. Will need a PICC line insertion and MRI his lower back since he may have a lumbosacral spine infection there. Job ID: [id number] [facility]
--- NOTE | 2020-08-10 19:18 | CON ---
DATE OF CONSULTATION: HISTORY OF PRESENT ILLNESS: The patient is a 50-year-old gentleman who presents with fevers and chills. The patient has a history of cirrhosis. The patient noted recently having increasing fevers and chills. The patient denied having any chest discomfort. PAST MEDICAL HISTORY: Significant for cirrhosis. PAST SURGICAL HISTORY: Hernia repair, laminectomy, laparotomy. SOCIAL HISTORY: Long history of ethanol abuse and tobacco abuse. ALLERGIES: PENICILLIN. MEDICATIONS: See nursing list. PHYSICAL EXAMINATION: GENERAL: Ill-appearing gentleman. VITAL SIGNS: Blood pressure 150/59. NECK: Showed jugular venous distention of the jaw. LUNGS: Have few crackles in both bases. HEART: Regular rate and rhythm. Normal S1, S2 with a 3/6 diastolic murmur. ABDOMEN: Distended. EXTREMITIES: Showed moderate bilateral edema. LABORATORY RESULTS: White blood cell count 10.7, hemoglobin 8.1, hematocrit 26.7, platelets 78. Sodium was 130, potassium 3.0, chloride 101, bicarbonate 17, BUN 7, creatinine 0.64, glucose 41. Troponin was 0.2. BNP was 1930. EKG sinus rhythm, nonspecific intraventricular conduction delay. Echocardiogram moderate decrease in left ventricular systolic function, estimated ejection fraction 30% to 40% with a vegetation noted on aortic valve with severe aortic regurgitation. IMPRESSION: 1. Endocarditis. 2. Cardiomyopathy. 3. Severe aortic regurgitation. 4. Cirrhosis. 5. Thrombocytopenia. 6. Ethanol abuse. 7. Tobacco abuse. This gentleman presents with evidence of endocarditis. He is growing Staphylococcus out of his blood cultures. ID has been consulted. We will follow this patient with you through his hospitalization. We will start low-dose PIPER inhibitor therapy for afterload reduction. Job ID: [id number] [facility]
[2020-08-10] MEDS: Famotidine 20 MG TAB PO SCH (21:53)
[2020-08-10] MEDS: Spironolactone 100 MG TAB PO SCH (21:53)
[2020-08-10] MEDS: CEFAZOLIN 2 GM in Premix Bag 1 BAG IVPB SCH (21:59)
[2020-08-10] MEDS: traMADol HCl 50 MG TAB PO PRN (22:00)
[2020-08-11] MEDS: CEFAZOLIN 2 GM in Premix Bag 1 BAG IVPB SCH ×3 (05:52→21:43)
[2020-08-11] MEDS: Furosemide 40 MG/4 ML VIAL SLOW IVP SCH ×2 (05:53→15:21)
--- NOTE | 2020-08-11 07:17 | HP ---
PRIMARY CARE PHYSICIAN: Ludwig Cabezas. CHIEF COMPLAINT: Fall with back pain. HISTORY OF PRESENT ILLNESS: This is a 50-year-old white male with a known history of alcoholic cirrhosis with anasarca and ascites. He was in the hospital a couple of weeks ago with a fever, had some likely contaminants on his blood cultures and Dr. Shane eventually recommended discontinuing antibiotics. He was also weak overall from his chronic medical problems. He was discharged to home. The patient had a couple of falls at home, most recent the day before admission. He fell flat onto his back. He states this is due to weakness and has had severe lower back pain since that makes it so he cannot get up and walk. He does note some worsening shortness of breath over the last few days to a couple of weeks. No other significant symptoms. He does state that his generalized weakness that he came in with last time seems to be mildly improving. He has had no more fevers. REVIEW OF SYSTEMS: CONSTITUTIONAL: No fevers. No chills. EYES: No double vision or blurred vision. ENT: No congestion, drainage, or sore throat. CARDIOVASCULAR: No chest pain. No palpitations or racing heart. PULMONARY: The patient does have some dyspnea on exertion and states sometimes he feels like he has to breathe in real deep. He occasionally will clear secretions from the back of his throat. He is not having significant cough. No wheezing. No chest tightness. GASTROINTESTINAL: No abdominal pain. No nausea or vomiting. No constipation. He has had chronic loose bowel movements for the last 7 to 8 months, which are unchanged. He does report that his abdominal distention has worsened mildly since his last admission. GENITOURINARY: No dysuria or hematuria. He reports very dark urine. MUSCULOSKELETAL: See HPI. No other muscle aches or complaints. He does report his left lower extremity edema, which is always worse than his right has been significantly worse over the last week or so. SKIN: No rashes or other lesions he has noted. NEUROLOGIC: No numbness, tingling, or focal weakness. Just generalized weakness. PAST MEDICAL HISTORY: 1. Alcoholic cirrhosis. 2. Diabetes mellitus type 2. 3. Hyperlipidemia. 4. Degenerative joint disease. 5. Hypertension. 6. Peptic ulcer disease. PAST SURGICAL HISTORY: 1. Hernia repair. 2. Neck surgery. 3. Back surgery. FAMILY HISTORY: Positive for diabetes and hypertension. SOCIAL HISTORY: The patient denies current alcohol use. Does state he drinks 5 to 6 drinks of liquids per day. He also smokes cigarettes though irregularly. No illicit drug use. The patient lives in [place] with his mother. He is a full code. His medical decision maker would be his sister, Samantha Castelan. ALLERGIES: 1. PENICILLIN. 2. VANCOMYCIN. 3. LISINOPRIL. CURRENT MEDICATIONS: 1. Gabapentin 300 mg daily. 2. Nadolol 20 mg daily. 3. Bupropion 150 mg daily. 4. Torsemide 10 mg daily. 5. Ferrous sulfate 325 mg daily. 6. Glipizide 5 mg daily. 7. Sodium chloride 1 g three times a day. 8. Spironolactone 100 mg twice a day. His potassium chloride and metformin were supposed to be discontinued during his last hospitalization. PHYSICAL EXAMINATION: VITAL SIGNS: Blood pressure 135/63, pulse 102, respirations 20, O2 saturation 97% on room air, temperature 98.2. GENERAL: This is a well-developed ill-appearing white male, in mild respiratory distress with some increased work of breathing, especially when he talks. HEENT: Pupils equal, round, and reactive to light. Oropharynx is clear without lesions, erythema, or exudate. NECK: Supple. No lymphadenopathy. No thyroid nodules or enlargement. HEART: Mildly tachycardic, regular rhythm. No murmurs, rubs, or gallops. LUNGS: Clear to auscultation bilaterally. No wheezes, crackles, or rhonchi. ABDOMEN: Soft, mildly distended, but not tense. Nontender to palpation. Normoactive bowel sounds. No hepatosplenomegaly or other masses. EXTREMITIES: No clubbing or cyanosis. The patient does have 3 to 4+ pitting edema on his left lower extremity, 1+ on his right lower extremity. SKIN: No rashes or other lesions noted. NEUROLOGIC: The patient moves all extremities equally. No facial droop. PSYCHIATRIC: Alert and oriented x3. Normal mood and affect. LABORATORY DATA: CBC with a white blood cell count of 10.7 with 79% neutrophils, hemoglobin 8.1, hematocrit 26.7, platelet count 78. These are actually improved from his last hospitalization when he got down to between 7 and 6.9. Coagulation profile with INR of 2.7. D-dimer was elevated at 9.14. Complete metabolic panel notable for sodium of 130; potassium of 3.0; carbon dioxide of 17; BUN is 7; creatinine 0.64; glucose was initially 41 on his check last night, came up to 77 on a fingerstick blood sugar recheck. Lactic acid 1.5. Calcium 7.4, total bilirubin is 8.3 up from 4.5 on his last hospitalization. AST of 44. Troponin 0.271, stable on repeat. C-reactive protein 2.9, albumin is 2.2. The rest of his CMP was normal. His brain natriuretic peptide was 1900. This is new for him. It has never been above 91 in the past, including 46 was the last recheck about a year ago. Urinalysis negative for infection. COVID test was negative in the emergency room. Blood cultures have started to result back, both are growing gram-positive cocci, one of them is identified as coag-negative Staphylococcus. This is consistent with his past blood cultures done earlier in the month when he grew Staphylococcus sciuri in both blood cultures concerning for the possibility of an actual infection. IMAGING STUDIES: Chest x-ray from the emergency room reviewed and the radiologist interpretation reviewed as well. It does show bilateral perihilar interstitial opacities slightly pronounced, but stable to the prior exam, suspicious for interstitial edema, also with small bilateral pleural effusions, is also suspicious for congestive heart failure. CTA of the chest and thorax showed no evidence for pulmonary embolism, but there was cardiomegaly and suggestion of early interstitial edema and persistent signs of cirrhosis and portal hypertension on the upper abdomen. CT abdomen and pelvis showed no evidence for bony abnormalities or fractures of the spine, did show fluid density in the colon and rectum, likely diarrheal state or mild colitis. Also with new tiny bilateral pleural effusions and bibasilar atelectasis and worsening mild ascites, anasarca. X-ray of the pelvis was done also in the ER and showed no evidence for fracture or osseous abnormality. EKG done in the emergency room showed normal sinus rhythm with some ST flattening in the lateral leads, but no other significant abnormalities. ASSESSMENT: 1. Fall with low back pain, appears to be soft tissue injury. No evidence of fracture. Will need physical therapy. 2. Increased work of breathing with new pleural effusions and worsening anasarca, concern for development of congestive heart failure, especially with his significant brain natriuretic peptide elevation and his troponin, they are indeterminate. We will stop all the patient's fluids and give him IV Lasix twice a day and we will monitor renal function closely. We will consult Dr. Warner, Cardiology. We will hold off on an echocardiogram for now as he had one done earlier this month that showed normal ejection fraction. 3. Positive blood cultures. Uncertain if these are contaminants or if the patient actually has an infection. He is allergic to vancomycin, however, the Staphylococcus sciuri that grew back last time is sensitive to cephalosporins, so we will continue his cefepime for now. We will consult Dr. Shane. The patient may end up needing a EPIFANIO if he thinks this may not be a contaminant at this time. 4. Alcoholic cirrhosis, now with decompensation and elevation of his total bilirubin. We will monitor closely and may need to get GI involved again. We will continue his home medications. 5. Diabetes mellitus type 2. We will resume the patient's home medications. 6. Hypertension. Resume home medications. 7. Gastrointestinal prophylaxis, put the patient on Pepcid twice a day. 8. Deep venous thrombosis prophylaxis. The patient is already anticoagulated due to his significant liver disease. CODE STATUS: The patient is a full code. Should he be incapacitated, his sister would be his medical decision maker. I will consult Palliative Care due to the severity of his illness. Job ID: [id number]
[2020-08-11] MEDS: Bupropion 150 MG XL TAB PO SCH (08:58)
[2020-08-11] MEDS: Famotidine 20 MG TAB PO SCH ×2 (08:58→21:43)
[2020-08-11] MEDS: Gabapentin 300 MG CAP PO SCH (09:00)
[2020-08-11] MEDS: glipiZIDE 5 MG TAB PO SCH (09:02)
[2020-08-11] MEDS: Spironolactone 100 MG TAB PO SCH ×2 (09:02→21:44)
[2020-08-11] MEDS: Ferrous Sulfate 325 MG TAB PO SCH (09:02)
[2020-08-11] MEDS: Escitalopram Oxalate 20 mg Tablet PO SCH (09:02)
[2020-08-11] MEDS: Multivit, Chewable SF 1 TAB PO SCH (09:02)
[2020-08-11] MEDS: Sodium Chloride 1 GM TAB PO SCH ×3 (09:03→21:47)
[2020-08-11] MEDS: Nadolol 40 MG TAB PO SCH (09:03)
--- NOTE | 2020-08-11 12:38 | PDOC.HOSPP ---
- Subjective Encounter Date: 08/11/20 Encounter Time: 08:15 Subjective: Patient is resting. He does not have any major complaints. He does appear quite little lethargic this morning probably still sleeping. His left leg looks much bigger than the right one. Echo showed aortic vegetation. I talked to the infectious disease doctor will repeat his blood cultures today. If happen to be negative in 48 hours then will plan for a PICC line placement. MRI of the back still pending. - Objective Vital Signs & Weight: Vital Signs (12 hours) Temp Pulse Resp BP Pulse Ox 08/11/20 08:00 97.8 F 85 18 132/60 100 08/11/20 04:00 98.4 F 82 13 118/56 L 96 Weight Weight 207 lb 4.8 oz I&O: 08/10/20 08/11/20 08/12/20 07:59 06:59 06:59 Intake Total Output Total Balance Result Diagrams: 08/09/20 20:16 08/09/20 20:16 Additional Labs: Accuchecks 08/11/20 08/11/20 08/10/20 10:46 06:01 20:09 POC Glucose 156 H 111 H 188 H Hospitalist ROS - Medication Medications: Active Medications Generic Name Dose Route Start Last Admin Trade Name Freq PRN Reason Stop Dose Admin Bupropion HCl 150 mg 08/11/20 09:00 08/11/20 08:58 Bupropion 150 Mg Xl Tab PO 150 mg DAILY HARPREET Administration Escitalopram Oxalate 20 mg 08/11/20 09:00 08/11/20 09:02 Escitalopram Oxalate 20 Mg Tablet PO 20 mg DAILY HARPREET Administration Famotidine 20 mg 08/10/20 21:00 08/11/20 08:58 Famotidine 20 Mg Tab PO 20 mg BID HARPREET Administration Ferrous Sulfate 325 mg 08/11/20 08:00 08/11/20 09:02 Ferrous Sulfate 325 Mg Tab PO 325 mg QAM-WM HARPREET Administration Furosemide 40 mg 08/10/20 14:00 08/11/20 05:53 Furosemide 40 Mg/4 Ml Vial SLOW IVP 40 mg 0600,1400 HARPREET Administration Gabapentin 300 mg 08/11/20 09:00 08/11/20 09:00 Gabapentin 300 Mg Cap PO 300 mg DAILY HARPREET Administration Glipizide 5 mg 08/11/20 07:30 08/11/20 09:02 Glipizide 5 Mg Tab PO 5 mg DAILY-AC HARPREET Administration Cefazolin Sodium/Dextrose 2 gm 50 mls @ 100 mls/hr 08/10/20 22:00 08/11/20 05:52 / Device IVPB 50 mls Q8HR HARPREET Administration Insulin Human Lispro 0 units 08/10/20 14:50 08/10/20 17:17 Humalog 300 Units/3 Ml Vial SC 2 unit .MILD SLIDING SCALE PRN Administration Mild Correctional Scale Multivitamins 1 tab 08/11/20 09:00 08/11/20 09:02 Multivit, Chewable Sf 1 Tab PO 1 tab DAILY HARPREET Administration Nadolol 20 mg 08/11/20 09:00 08/11/20 09:03 Nadolol 40 Mg Tab PO 20 mg DAILY HARPREET Administration Sodium Chloride 1 gm 08/10/20 15:00 08/11/20 09:03 Sodium Chloride 1 Gm Tab PO 1 gm TID HARPREET Administration Spironolactone 100 mg 08/10/20 21:00 08/11/20 09:02 Spironolactone 100 Mg Tab PO 100 mg BID HARPREET Administration Tramadol HCl 50 mg 08/10/20 19:56 08/10/20 22:00 Tramadol Hcl 50 Mg Tab PO 50 mg Q4H PRN Administration Pain 4-6 - Exam General Appearance: NAD, awake alert General - other findings: No splinter hemorrhages or Janeway lesions noted. Eye: PERRL, anicteric sclera ENT: normocephalic atraumatic Neck: supple Heart: RRR, normal peripheral pulses Respiratory: CTAB, normal chest expansion Gastrointestinal: soft, normal bowel sounds Neurological: cranial nerve grossly intact, no focal deficits Psychiatric: A&O x 3 Hosp A/P - Plan Fall with the back pain Worsening anasarca and a new pleural effusion Probable nonischemic cardiomyopathy per EF of 40% Aortic valve infective endocarditis Left ventricle dilated Tatian Gram-positive cocci bacteremia Pulmonary hypertension -On cefazolin 2 g IV every 8 hours. -No splinter hemorrhages or Janeway lesions noted. -Repeating the blood cultures. If it remains negative for [address] PICC line- Abnormal troponin due to metabolic mismatch type II demand ischemia. Alcoholic cirrhosis -Patient on nadolol at home will continue the same. -On Lasix as well as spironolactone. -He may need lactulose down the road. The at this point he is looks stable and he is not on home regimen of lactulose Type 2 diabetes mellitus -Patient on Metformin and glipizide. -His creatinine in the normal range we will continue the home regimen along with sliding scale insulin. Full code
--- NOTE | 2020-08-11 16:30 | MRI ---
MRI LUMBAR SPINE WITH AND WITHOUT IV CONTRAST: Date: 08-11-2020 PROVIDED CLINICAL HISTORY: Back pain, bacteremia. FINDINGS: Evaluation is markedly limited on the basis of patient motion on the axial sequences. Lumbar alignment appears normal. Vertebral body heights appear preserved. Disc desiccation and mild l oss of disc space height at L3-4 an L4-5. Endplate degenerative changes at L5-S1. No focal concerning regional marrow signal abnormality is evident. Nonspecific signal alteration within the paraspinal m usculature adjacent to the lower lumbar spine, which can be seen in a prolonged recumbent state. The conus medullaris is grossly normal in size and terminates at a grossly normal level. There is no pat hologic contrast enhancement evident. There is a disc herniation at L1-2 with mild/moderate central c anal stenosis. There are broad disc bulges at L3-4, L4-5 and L5-S1, associated with annular fissures at L4-5 and L5-S1. There is severe left foraminal narrowing at L5-S1 on the basis of disc osteophyte and facet arthritis. The canal and foramina appear otherwise without significant stenosis. IMPRESSION: Limited study due to patient motion. Lumbar spine degenerative changes as described. POS: MARIELY
[2020-08-11] MEDS: Melatonin 3 MG TAB PO SCH (21:43)
[2020-08-12 05:03] LABS: Anion Gap 12 mmol/L (10-20); BUN (Urea Nitrogen) 9 mg/dL (8.4-25.7); Calc. Creatinine Clearance 162 mL/min (70-130); Calcium 8.3 mg/dL (7.8-10.44); Carbon Dioxide 20 mmol/L (22-29); Chloride 103 mmol/L (98-107); Estimated GFR-MDRD Greater than 90; Glucose 145 mg/dL (70-105); Potassium 3.2 mmol/L (3.5-5.1); Sodium 132 mmol/L (136-145)
[2020-08-12 05:09] LABS: Hemoglobin 7.8 g/dL (14.0-18.0); Lymphocytes 27 % (21-51); MDiff Complete? YES; Mean Corpuscular HGB CONC 30.6 g/dL (32.0-36.0); Mean Corpuscular Volume 75.3 fL (78.0-98.0); Mean Platelet Volume 6.5 fL (7.4-10.4); Metamyelocyte 1 % (0-0); Monocytes 12 % (0-10); Neutrophil 60 % (42-75); Platelet Count 88 thou/uL (130-400); Platelet Morphology Comment Appears Decreased; RBC Distribution Width 25.7 % (11.5-14.5); Red Blood Cell (RBC) Count 3.38 mill/uL (4.70-6.10); White Blood Cell (WBC) Count 6.8 thou/uL (4.8-10.8)
[2020-08-12] MEDS: CEFAZOLIN 2 GM in Premix Bag 1 BAG IVPB SCH ×3 (06:37→23:07)
[2020-08-12] MEDS: Furosemide 40 MG/4 ML VIAL SLOW IVP SCH ×2 (06:37→14:52)
[2020-08-12] MEDS ORDERED: Potassium Citrate 10 MEQ TAB PO SCH (08:45)
[2020-08-12] MEDS: glipiZIDE 5 MG TAB PO SCH (09:41)
[2020-08-12] MEDS: Escitalopram Oxalate 20 mg Tablet PO SCH (09:41)
[2020-08-12] MEDS: Famotidine 20 MG TAB PO SCH ×2 (09:42→23:06)
[2020-08-12] MEDS: Bupropion 150 MG XL TAB PO SCH (09:42)
[2020-08-12] MEDS: Gabapentin 300 MG CAP PO SCH (09:42)
[2020-08-12] MEDS: Ferrous Sulfate 325 MG TAB PO SCH (09:42)
[2020-08-12] MEDS: Spironolactone 100 MG TAB PO SCH ×2 (09:42→23:06)
[2020-08-12] MEDS: Multivit, Chewable SF 1 TAB PO SCH (09:43)
[2020-08-12] MEDS: Sodium Chloride 1 GM TAB PO SCH ×2 (09:43→23:08)
[2020-08-12] MEDS: Nadolol 40 MG TAB PO SCH (09:43)
[2020-08-12] MEDS: HumaLOG 300 UNITS/3 ML VIAL SC PRN ×2 (11:29→23:13)
--- NOTE | 2020-08-12 12:24 | PDOC.HOSPP ---
- Subjective Encounter Date: 08/12/20 Encounter Time: 11:15 Subjective: Pt. is in bed resting. He states no new complaints. He is alert and appears in no acute distress. His skin is jaundiced. MRI of spine was limited due to pt motion but showed lumbar spine degenerative changes. He is hyponatremic and hypokalemic. - Objective Vital Signs & Weight: Vital Signs (12 hours) Temp Pulse Resp BP Pulse Ox 08/12/20 11:20 97.9 F 74 16 134/63 97 08/12/20 07:33 96 08/12/20 07:20 98.1 F 80 16 151/66 H 100 08/12/20 05:26 96 08/12/20 04:00 98.6 F 88 20 115/54 L 96 Weight Weight 211 lb 3 oz I&O: 08/11/20 08/12/20 08/13/20 06:59 06:59 06:59 Intake Total 2900 Output Total 2225 Balance 675 Result Diagrams: 08/12/20 04:18 08/12/20 04:18 Additional Labs: Accuchecks 08/12/20 08/12/20 08/11/20 11:04 05:41 20:27 POC Glucose 266 H 123 H 160 H 08/11/20 08/10/20 16:56 16:51 POC Glucose 84 160 H Hospitalist ROS - Medication Medications: Active Medications Generic Name Dose Route Start Last Admin Trade Name Freq PRN Reason Stop Dose Admin Bupropion HCl 150 mg 08/11/20 09:00 08/12/20 09:42 Bupropion 150 Mg Xl Tab PO 150 mg DAILY HARPREET Administration Escitalopram Oxalate 20 mg 08/11/20 09:00 08/12/20 09:41 Escitalopram Oxalate 20 Mg Tablet PO 20 mg DAILY HARRPEET Administration Famotidine 20 mg 08/10/20 21:00 08/12/20 09:42 Famotidine 20 Mg Tab PO 20 mg BID HARPREET Administration Ferrous Sulfate 325 mg 08/11/20 08:00 08/12/20 09:42 Ferrous Sulfate 325 Mg Tab PO 325 mg QAM-WM HARPREET Administration Furosemide 40 mg 08/10/20 14:00 08/12/20 06:37 Furosemide 40 Mg/4 Ml Vial SLOW IVP 40 mg 0600,1400 HARPREET Administration Gabapentin 300 mg 08/11/20 09:00 08/12/20 09:42 Gabapentin 300 Mg Cap PO 300 mg DAILY HARPREET Administration Glipizide 5 mg 08/11/20 07:30 08/12/20 09:41 Glipizide 5 Mg Tab PO 5 mg DAILY-AC HARPREET Administration Cefazolin Sodium/Dextrose 2 gm 50 mls @ 100 mls/hr 08/10/20 22:00 08/12/20 06:37 / Device IVPB 50 mls Q8HR HARPREET Administration Insulin Human Lispro 0 units 08/10/20 14:50 08/12/20 11:29 Humalog 300 Units/3 Ml Vial SC 4 unit .MILD SLIDING SCALE PRN Administration Mild Correctional Scale Melatonin 6 mg 08/11/20 21:00 08/11/20 21:43 Melatonin 3 Mg Tab PO 6 mg HS HARPREET Administration Multivitamins 1 tab 08/11/20 09:00 08/12/20 09:43 Multivit, Chewable Sf 1 Tab PO 1 tab DAILY HARPREET Administration Nadolol 20 mg 08/11/20 09:00 08/12/20 09:43 Nadolol 40 Mg Tab PO 20 mg DAILY HARPREET Administration Sodium Chloride 1 gm 08/12/20 09:00 08/12/20 09:43 Sodium Chloride 1 Gm Tab PO 1 gm BID HARPREET Administration Sodium Chloride 10 ml 08/12/20 09:00 08/12/20 09:43 Flush - Normal Saline 10 Ml Syringe IVF 10 ml Q12HR HARPREET Administration Spironolactone 100 mg 08/10/20 21:00 08/12/20 09:42 Spironolactone 100 Mg Tab PO 100 mg BID HARPREET Administration Tramadol HCl 50 mg 08/10/20 19:56 08/10/20 22:00 Tramadol Hcl 50 Mg Tab PO 50 mg Q4H PRN Administration Pain 4-6 - Exam General Appearance: NAD, awake alert Eye: scleral icterus Heart: RRR, murmur present Respiratory: CTAB, no wheezes, no rales, no ronchi, normal chest expansion, tachypneic Gastrointestinal: soft, non-tender, non-distended, normal bowel sounds, no palpable masses, no hepatomegaly, no splenomegaly Extremities: 2+ LE edema (left leg) Skin - other findings: jaundiced Psychiatric: normal affect, normal behavior, A&O x 3 Hosp A/P - Plan Fall with the back pain Worsening anasarca and a new pleural effusion Probable nonischemic cardiomyopathy per EF of 40% Aortic valve infective endocarditis Left ventricle dilated Tatian Gram-positive cocci bacteremia Pulmonary hypertension -On cefazolin 2 g IV every 8 hours. -No splinter hemorrhages or Janeway lesions noted. -Repeating the blood cultures. If it remains negative for [address] PICC line- Abnormal troponin due to metabolic mismatch type II demand ischemia. Alcoholic cirrhosis -Patient on nadolol at home will continue the same. -On Lasix as well as spironolactone. -He may need lactulose down the road. The at this point he is looks stable and he is not on home regimen of lactulose Type 2 diabetes mellitus -Patient on Metformin and glipizide. -His creatinine in the normal range we will continue the home regimen along with sliding scale insulin. Full code 08/12 Infective Endocarditis Patient has severe aortic regurgitation and EF of 40%.--- -Patient has been afebrile and BP stable. Physical exam is negative for splinter hemorrhages, janeway lesions, or osler nodes. Murmur is present. -Blood cultures positive for staphylococcus sciuri on 08/09 -Repeat blood cultures on 08/11 currently show no growth to date; if no growth by tomorrow , PICC line may be placed -Currently on cephazolin--probably for 4 to 6 weeks duration if repeat culture is negative. Hypokalemia- currently on furosemide and spironolactone -Replace Hyponatremia- seems to be his baseline according to past records -currently on NaCl -Caution with the salt supplement -Lumbar Spine MRI was limited due to pt. movement but showed lumbar spine degenerative changes. -PT consult to help mobilize pt
--- NOTE | 2020-08-12 20:00 | PDOC.CPN ---
- Subjective Date: 08/12/20 Time: 08:45 Interval history: No new events. Pt. complains of fatigue and weakness. - Review of Systems General: denies: fever/chills, weight/appetite/sleep changes, night sweats, fatigue Respiratory: reports: shortness of breath. denies: cough, congestion, exercise intolerance Cardiovascular: denies: chest pain, palpitation, edema, paroxysmal nocturnal dyspnea, orthopnea Gastrointestinal: denies: nausea, vomiting, diarrhea, constipation, abd pain, GI bleeding Musculoskeletal: denies: pain, tenderness, stiffness, swelling, arthritis/arthralgias Neurological: reports: weakness - Objective Allergies/Adverse Reactions: Allergies Allergy/AdvReac Type Severity Reaction Status Date / Time Penicillins Allergy Severe Hives Verified 08/10/20 02:16 vancomycin Allergy Severe Rash Verified 08/10/20 02:16 PIPER Inhibitors Allergy Unknown Verified 08/10/20 02:16 lisinopril Allergy Unknown Verified 08/10/20 02:16 Visit Medications: Current Medications Acetaminophen (Acetaminophen 325 Mg Tab) 650 mg PO Q4H PRN PRN Reason: Headache/Fever/Mild Pain (1-3) Bupropion HCl (Bupropion 150 Mg Xl Tab) 150 mg PO DAILY [facility] Last Admin: 08/12/20 09:42 Dose: 150 mg Documented by: Dextrose/Water (Dextrose 50% Abboject 50 Ml Syringe) 25 gm SLOW IVP PRN PRN PRN Reason: Hypoglycemia Escitalopram Oxalate (Escitalopram Oxalate 20 Mg Tablet) 20 mg PO DAILY [facility] Last Admin: 08/12/20 09:41 Dose: 20 mg Documented by: Famotidine (Famotidine 20 Mg Tab) 20 mg PO BID [facility] Last Admin: 08/12/20 09:42 Dose: 20 mg Documented by: Ferrous Sulfate (Ferrous Sulfate 325 Mg Tab) 325 mg PO QAM-WM [facility] Last Admin: 08/12/20 09:42 Dose: 325 mg Documented by: Furosemide (Furosemide 20 Mg Tab) 40 mg PO DAILY [facility] Gabapentin (Gabapentin 300 Mg Cap) 300 mg PO DAILY [facility] Last Admin: 08/12/20 09:42 Dose: 300 mg Documented by: Glipizide (Glipizide 5 Mg Tab) 5 mg PO DAILY-AC [facility] Last Admin: 08/12/20 09:41 Dose: 5 mg Documented by: Glucagon (Glucagon 1 Mg/Ml Vial) 1 mg IM PRN PRN PRN Reason: Hypoglycemia Guaifenesin/Dextromethorphan (Guaifenesin Dm 100-10/5 Ml Udcup) 15 ml PO Q4H PRN PRN Reason: Cough Dextrose/Water (D5w) 1,000 mls @ 0 mls/hr IV .Q0M PRN PRN Reason: Hypoglycemia Cefazolin Sodium/Dextrose 2 gm (/ Device) 50 mls @ 100 mls/hr IVPB Q8HR [facility] Last Admin: 08/12/20 14:52 Dose: 50 mls Documented by: Insulin Human Lispro (Humalog 300 Units/3 Ml Vial) 0 units SC .MILD SLIDING SCALE PRN PRN Reason: Mild Correctional Scale Last Admin: 08/12/20 11:29 Dose: 4 unit Documented by: Insulin Human Lispro (Humalog 300 Units/3 Ml Vial) 0 units SC .BEDTIME SLIDING SC PRN PRN Reason: Bedtime Correctional Scale Melatonin (Melatonin 3 Mg Tab) 6 mg PO HS [facility] Last Admin: 08/11/20 21:43 Dose: 6 mg Documented by: Multivitamins (Multivit, Chewable Sf 1 Tab) 1 tab PO DAILY [facility] Last Admin: 08/12/20 09:43 Dose: 1 tab Documented by: Nadolol (Nadolol 40 Mg Tab) 20 mg PO DAILY [facility] Last Admin: 08/12/20 09:43 Dose: 20 mg Documented by: Ondansetron HCl (Ondansetron Odt 4 Mg Tab) 4 mg PO Q6H PRN PRN Reason: Nausea/Vomiting Ondansetron HCl (Ondansetron Pf 4 Mg/2 Ml Vial) 4 mg IVP Q6H PRN PRN Reason: Nausea/Vomiting Sodium Chloride (Sodium Chloride 1 Gm Tab) 1 gm PO BID [facility] Last Admin: 08/12/20 09:43 Dose: 1 gm Documented by: Sodium Chloride (Flush - Normal Saline 10 Ml Syringe) 10 ml IVF Q12HR [facility] Last Admin: 08/12/20 09:43 Dose: 10 ml Documented by: Sodium Chloride (Flush - Normal Saline 10 Ml Syringe) 10 ml IVF PRN PRN PRN Reason: Saline Flush Spironolactone (Spironolactone 100 Mg Tab) 100 mg PO BID [facility] Last Admin: 08/12/20 09:42 Dose: 100 mg Documented by: Sucralfate (Sucralfate 1 Gm/10 Ml Udcup) 1 gm PO QID PRN PRN Reason: ODNYOPHAGIA Tramadol HCl (Tramadol Hcl 50 Mg Tab) 50 mg PO Q4H PRN PRN Reason: Pain 4-6 Last Admin: 08/10/20 22:00 Dose: 50 mg Documented by: Vital Signs & Weight: Vital Signs Temp Pulse Pulse Pulse Resp BP BP 08/12/20 15:00 97.5 F L 74 16 08/12/20 14:15 80 83 137/62 133/60 08/12/20 11:20 97.9 F 74 16 BP Pulse Ox Pulse Ox Pulse Ox 08/12/20 15:00 136/60 95 08/12/20 14:15 95 97 08/12/20 11:20 134/63 97 Admit Weight 210 lb 5 oz Weight 211 lb 3 oz - Physical Exam General: no apparent distress HEENT: normocephaly Neck: no JVD/HJR Cardiac: regular rate and rhythm, audible murmur, diastolic murmur Lungs: clear to auscultation Neuro: grossly intact Abdomen: active bowel sounds Extremities: 2+ LE edema Musculoskeletal: normal range of motion - Labs Result Diagrams: 08/12/20 04:18 08/12/20 04:18 Troponin/CKMB CK-MB (CK-2) 1.9 ng/mL (0-6.6) 08/09/20 20:15 Troponin I 0.254 ng/mL (< 0.028) H 08/10/20 05:58 - Telemetry Sinus rhythms and dysrhythmias: sinus rhythm - Assessment/Plan Assessment/Plan: 1. Bacterial endocarditis. Continue antibiotics. 2. Aortic insufficiency with a vegetation on the AV. Will need intermodal dispatcher antibiotics and a possible AVR. 3. Edema: continue diuretics. 4. DM II 5. Pleural effusions 6. ETOH cirrhosis. 7. Hypokalemia. 8. Jaundice 9. Cardiomyopathy. EF 40: 10. Generalized fatigue.
[2020-08-12] MEDS: Melatonin 3 MG TAB PO SCH (23:06)
[2020-08-12] MEDS: traMADol HCl 50 MG TAB PO PRN (23:06)
[2020-08-13 04:37] LABS: Anion Gap 11 mmol/L (10-20); BUN (Urea Nitrogen) 6 mg/dL (8.4-25.7); Calc. Creatinine Clearance 186 mL/min (70-130); Calcium 8.1 mg/dL (7.8-10.44); Carbon Dioxide 21 mmol/L (22-29); Chloride 103 mmol/L (98-107); Estimated GFR-MDRD Greater than 90; Glucose 106 mg/dL (70-105); Potassium 3.4 mmol/L (3.5-5.1); Sodium 132 mmol/L (136-145)
[2020-08-13 04:39] LABS: Band 4 % (5-11); Eosinophils 8 % (0-10); Hemoglobin 7.8 g/dL (14.0-18.0); Hypochromia SLIGHT = 6-15 cells (100X) (0-5/hpf); Lymphocytes 33 % (21-51); MDiff Complete? YES; Mean Corpuscular HGB CONC 30.6 g/dL (32.0-36.0); Mean Corpuscular Hemoglobin 23.4 pg (27.0-31.0); Mean Corpuscular Volume 76.3 fL (78.0-98.0); Mean Platelet Volume 6.8 fL (7.4-10.4); Monocytes 17 % (0-10); Neutrophil 38 % (42-75); Ovalocytes SLIGHT = 2-5 cells (100X) (0-1/hpf); Platelet Count 74 thou/uL (130-400); Platelet Morphology Comment Appears Decreased; Polychromasia SLIGHT = 2-3 cells (100X) (0-2/hpf); RBC Distribution Width 26.4 % (11.5-14.5); Red Blood Cell (RBC) Count 3.35 mill/uL (4.70-6.10); Target Cells SLIGHT = 2-5 cells (100X) (0-1/hpf); White Blood Cell (WBC) Count 5.3 thou/uL (4.8-10.8)
[2020-08-13] MEDS ORDERED: Furosemide 40 MG/4 ML VIAL SLOW IVP SCH (06:30)
--- NOTE | 2020-08-13 06:40 | PDOC.EVN ---
Event Note - Event Note Event Note: called by RN re: patient is short of breath. will do a cxr will give IV Lasix
[2020-08-13] MEDS: CEFAZOLIN 2 GM in Premix Bag 1 BAG IVPB SCH ×3 (06:41→21:15)
[2020-08-13] MEDS ORDERED: Potassium Chloride 20 MEQ TAB PO SCH (07:00)
--- NOTE | 2020-08-13 07:50 | RAD ---
Chest AP view INDICATION: Shortness of breath COMPARISON: April 27, 2020 and August 09, 2020 FINDINGS: Lungs: There is perihilar interstitial edema that has worsened. There is worsening hazy airspace [place] in the infrahilar regions. Cardiac silhouette: There is persistent cardiomegaly Pulmonary vasculature: There is persistent moderate pulmonary vascular congestion Pleural spaces: There are small bilateral pleural effusions that have increased in size. No pneumoth orax. Upper abdomen: No abnormality seen. Osseous structures: No acute osseous abnormality. Additional findings: None. IMPRESSION: Findings suspicious for worsening CHF
[2020-08-13] MEDS: Escitalopram Oxalate 20 mg Tablet PO SCH (08:59)
[2020-08-13] MEDS: Sodium Chloride 1 GM TAB PO SCH ×2 (08:59→21:15)
[2020-08-13] MEDS: glipiZIDE 5 MG TAB PO SCH (08:59)
[2020-08-13] MEDS: Gabapentin 300 MG CAP PO SCH (08:59)
[2020-08-13] MEDS: Multivit, Chewable SF 1 TAB PO SCH (08:59)
[2020-08-13] MEDS ORDERED: Furosemide 20 MG TAB PO SCH (09:00)
[2020-08-13] MEDS: Nadolol 40 MG TAB PO SCH (09:01)
[2020-08-13] MEDS: Ferrous Sulfate 325 MG TAB PO SCH (09:01)
[2020-08-13] MEDS: Spironolactone 100 MG TAB PO SCH ×2 (09:01→21:15)
[2020-08-13] MEDS: Bupropion 150 MG XL TAB PO SCH (09:01)
[2020-08-13] MEDS: Famotidine 20 MG TAB PO SCH (09:01)
--- NOTE | 2020-08-13 09:24 | PDOC.HOSPP ---
- Subjective Encounter Date: 08/13/20 Encounter Time: 09:20 Subjective: Pt is in bed and appears in no acute distress. He has been feeling fatigued which he attributes to trouble sleeping. He also states he had a severe episode of SOB last night but that has improved and is not wearing the nasal canula now. He states his SOB worsens with exertion but if he lays still he is fine. He has been having regular bowel movements and is no longer complaining of back pain. - Objective Vital Signs & Weight: Vital Signs (12 hours) Temp Pulse Resp BP Pulse Ox 08/13/20 08:33 94 L 08/13/20 08:04 97.6 F 83 22 H 112/55 L 94 L 08/13/20 06:00 81 28 H 130/60 93 L 08/13/20 03:50 97.8 F 80 18 123/60 98 08/13/20 01:14 98 Weight Admit Weight 210 lb 5 oz Weight 209 lb I&O: 08/12/20 08/13/20 08/14/20 06:59 06:59 06:59 Intake Total 2900 2580 Output Total 2225 2000 Balance 675 580 Result Diagrams: 08/13/20 04:02 08/13/20 04:02 Additional Labs: Accuchecks 08/13/20 08/12/20 08/12/20 05:42 20:23 11:04 POC Glucose 118 H 227 H 266 H Hospitalist ROS - Medication Medications: Active Medications Generic Name Dose Route Start Last Admin Trade Name Merlyn PRN Reason Stop Dose Admin Bupropion HCl 150 mg 08/11/20 09:00 08/13/20 09:01 Bupropion 150 Mg Xl Tab PO 150 mg DAILY [facility] Administration Escitalopram Oxalate 20 mg 08/11/20 09:00 08/13/20 08:59 Escitalopram Oxalate 20 Mg Tablet PO 20 mg DAILY [facility] Administration Famotidine 20 mg 08/10/20 21:00 08/13/20 09:01 Famotidine 20 Mg Tab PO 20 mg BID [facility] Administration Ferrous Sulfate 325 mg 08/11/20 08:00 08/13/20 09:01 Ferrous Sulfate 325 Mg Tab PO 325 mg QAM-WM [facility] Administration Furosemide 40 mg 08/13/20 09:00 08/13/20 08:59 Furosemide 20 Mg Tab PO 40 mg DAILY [facility] Administration Gabapentin 300 mg 08/11/20 09:00 08/13/20 08:59 Gabapentin 300 Mg Cap PO 300 mg DAILY [facility] Administration Glipizide 5 mg 08/11/20 07:30 08/13/20 08:59 Glipizide 5 Mg Tab PO 5 mg DAILY-AC [facility] Administration Cefazolin Sodium/Dextrose 2 gm 50 mls @ 100 mls/hr 08/10/20 22:00 08/13/20 06:41 / Device IVPB 50 mls Q8HR [facility] Administration Insulin Human Lispro 0 units 08/10/20 14:50 08/12/20 11:29 Humalog 300 Units/3 Ml Vial SC 4 unit .MILD SLIDING SCALE PRN Administration Mild Correctional Scale Insulin Human Lispro 0 units 08/10/20 14:50 08/12/20 23:13 Humalog 300 Units/3 Ml Vial SC 2 unit .BEDTIME SLIDING SC PRN Administration Bedtime Correctional Scale Melatonin 6 mg 08/11/20 21:00 08/12/20 23:06 Melatonin 3 Mg Tab PO 6 mg HS [facility] Administration Multivitamins 1 tab 08/11/20 09:00 08/13/20 08:59 Multivit, Chewable Sf 1 Tab PO 1 tab DAILY [facility] Administration Nadolol 20 mg 08/11/20 09:00 08/13/20 09:01 Nadolol 40 Mg Tab PO 20 mg DAILY [facility] Administration Potassium Chloride 40 meq 08/13/20 07:00 08/13/20 08:58 Potassium Chloride 20 Meq Tab PO 08/13/20 10:00 40 meq NOW [facility] Administration Sodium Chloride 1 gm 08/12/20 09:00 08/13/20 08:59 Sodium Chloride 1 Gm Tab PO 1 gm BID [facility] Administration Sodium Chloride 10 ml 08/12/20 09:00 08/13/20 09:02 Flush - Normal Saline 10 Ml Syringe IVF 10 ml Q12HR [facility] Administration Spironolactone 100 mg 08/10/20 21:00 08/13/20 09:01 Spironolactone 100 Mg Tab PO 100 mg BID [facility] Administration Tramadol HCl 50 mg 08/10/20 19:56 08/12/20 23:06 Tramadol Hcl 50 Mg Tab PO 50 mg Q4H PRN Administration Pain 4-6 - Exam General Appearance: NAD, awake alert Eye: scleral icterus Heart: RRR, no murmur, no gallops, no rubs, normal peripheral pulses Respiratory: CTAB, no wheezes, no rales, no ronchi, tachypneic Gastrointestinal: soft, non-tender, non-distended, normal bowel sounds, no palpable masses, no hepatomegaly, no splenomegaly, no bruit Extremities: no cyanosis, 1+ LE edema (left leg), 2+ LE edema (right leg) Skin - other findings: Jaundiced Psychiatric: normal affect, normal behavior, A&O x 3 Hosp A/P - Plan Fall with the back pain Worsening anasarca and a new pleural effusion Probable nonischemic cardiomyopathy per EF of 40% Aortic valve infective endocarditis Left ventricle dilated Tatian Gram-positive cocci bacteremia Pulmonary hypertension -On cefazolin 2 g IV every 8 hours. -No splinter hemorrhages or Janeway lesions noted. -Repeating the blood cultures. If it remains negative for [address] PICC line- Abnormal troponin due to metabolic mismatch type II demand ischemia. Alcoholic cirrhosis -Patient on nadolol at home will continue the same. -On Lasix as well as spironolactone. -He may need lactulose down the road. The at this point he is looks stable and he is not on home regimen of lactulose Type 2 diabetes mellitus -Patient on Metformin and glipizide. -His creatinine in the normal range we will continue the home regimen along with sliding scale insulin. Full code 08/12 Infective Endocarditis Patient has severe aortic regurgitation and EF of 40%.--- -Patient has been afebrile and BP stable. Physical exam is negative for splinter hemorrhages, janeway lesions, or osler nodes. Murmur is present. -Blood cultures positive for staphylococcus sciuri on 08/09 -Repeat blood cultures on 08/11 currently show no growth to date; if no growth by tomorrow , PICC line may be placed -Currently on cephazolin--probably for 4 to 6 weeks duration if repeat culture is negative. Hypokalemia- currently on furosemide and spironolactone -Replace Hyponatremia- seems to be his baseline according to past records -currently on NaCl -Caution with the salt supplement -Lumbar Spine MRI was limited due to pt. movement but showed lumbar spine degenerative changes. -PT consult to help mobilize pt 08/13 Infective Endocarditis -Severe aortic regurgitation/aortic insufficiency and EF of 40% - no findings of splinter hemorrhages, janeway lesions, or osler nodes on physical exam. -This is a high risk surgery on a patient with several comorbidities that would not be conducive for surgery - Symptomatic nonischemic cardiomyopathy with a EF of 40 -Gentle IV diuresis --Patient had a severe episode of SOB last night and CXR showed worsening CHF. -Blood cultures positive for staphylococcus sciuri on 08/09 -Repeat blood cultures on 08/11 currently show no growth to date--PICC line may be placed -Can continue cephazolin for 4-6 weeks ---Cardiology report reviewed--state pt may need AVR but poor candidate due to alcoholic cirrhosis Alcoholic Cirrhosis -MELD score of 28 points for our pt; mortality at 30 days ranges from 6% (MELD score <8) to greater than 50% (MELD score >20) when assessing for surgical risk -GI consulted for their input in the context of cirrhosis and evaluation for possible AVR - cardiovascular consult -I talked to Dr. Roland yesterday evening and he is aware of this patient Hyponatremia-due to cirrhosis -seems to be his baseline according to past records- -his mentation at baseline with no sign of confusion -Caution with salt supplements; currently on NaCl -sodium at 132 today Hypokalemia: Potassium within normal range -On furosemide and spironolactone --No need for potassium supplement as he is on a high dose of spironolactone at 100 mg twice a day Students noted discussed and edited as deemed necessary.
[2020-08-13] MEDS: HumaLOG 300 UNITS/3 ML VIAL SC PRN (11:51)
--- NOTE | 2020-08-13 13:03 | PDOC.CPN ---
- Subjective Date: 08/13/20 Time: 12:58 Interval history: Pt with espidoe of SOB early this am. Ding well now after receiving lasix No current complaints. - Objective Allergies/Adverse Reactions: Allergies Allergy/AdvReac Type Severity Reaction Status Date / Time Penicillins Allergy Severe Hives Verified 08/10/20 02:16 vancomycin Allergy Severe Rash Verified 08/10/20 02:16 PIPER Inhibitors Allergy Unknown Verified 08/10/20 02:16 lisinopril Allergy Unknown Verified 08/10/20 02:16 Visit Medications: Current Medications Acetaminophen (Acetaminophen 325 Mg Tab) 650 mg PO Q4H PRN PRN Reason: Headache/Fever/Mild Pain (1-3) Bupropion HCl (Bupropion 150 Mg Xl Tab) 150 mg PO DAILY [facility] Last Admin: 08/13/20 09:01 Dose: 150 mg Documented by: Dextrose/Water (Dextrose 50% Abboject 50 Ml Syringe) 25 gm SLOW IVP PRN PRN PRN Reason: Hypoglycemia Escitalopram Oxalate (Escitalopram Oxalate 20 Mg Tablet) 20 mg PO DAILY [facility] Last Admin: 08/13/20 08:59 Dose: 20 mg Documented by: Famotidine (Famotidine 20 Mg Tab) 20 mg PO BID [facility] Last Admin: 08/13/20 09:01 Dose: 20 mg Documented by: Ferrous Sulfate (Ferrous Sulfate 325 Mg Tab) 325 mg PO QAM-[facility] Last Admin: 08/13/20 09:01 Dose: 325 mg Documented by: Furosemide (Furosemide 20 Mg Tab) 40 mg PO DAILY [facility] Last Admin: 08/13/20 08:59 Dose: 40 mg Documented by: Gabapentin (Gabapentin 300 Mg Cap) 300 mg PO DAILY [facility] Last Admin: 08/13/20 08:59 Dose: 300 mg Documented by: Glipizide (Glipizide 5 Mg Tab) 5 mg PO DAILY-AC [facility] Last Admin: 08/13/20 08:59 Dose: 5 mg Documented by: Glucagon (Glucagon 1 Mg/Ml Vial) 1 mg IM PRN PRN PRN Reason: Hypoglycemia Guaifenesin/Dextromethorphan (Guaifenesin Dm 100-10/5 Ml Udcup) 15 ml PO Q4H PRN PRN Reason: Cough Dextrose/Water (D5w) 1,000 mls @ 0 mls/hr IV .Q0M PRN PRN Reason: Hypoglycemia Cefazolin Sodium/Dextrose 2 gm (/ Device) 50 mls @ 100 mls/hr IVPB Q8HR [facility] Last Admin: 08/13/20 06:41 Dose: 50 mls Documented by: Insulin Human Lispro (Humalog 300 Units/3 Ml Vial) 0 units SC .MILD SLIDING SCALE PRN PRN Reason: Mild Correctional Scale Last Admin: 08/13/20 11:51 Dose: 2 unit Documented by: Insulin Human Lispro (Humalog 300 Units/3 Ml Vial) 0 units SC .BEDTIME SLIDING SC PRN PRN Reason: Bedtime Correctional Scale Last Admin: 08/12/20 23:13 Dose: 2 unit Documented by: Melatonin (Melatonin 3 Mg Tab) 6 mg PO HS [facility] Last Admin: 08/12/20 23:06 Dose: 6 mg Documented by: Multivitamins (Multivit, Chewable Sf 1 Tab) 1 tab PO DAILY [facility] Last Admin: 08/13/20 08:59 Dose: 1 tab Documented by: Nadolol (Nadolol 40 Mg Tab) 20 mg PO DAILY [facility] Last Admin: 08/13/20 09:01 Dose: 20 mg Documented by: Ondansetron HCl (Ondansetron Odt 4 Mg Tab) 4 mg PO Q6H PRN PRN Reason: Nausea/Vomiting Ondansetron HCl (Ondansetron Pf 4 Mg/2 Ml Vial) 4 mg IVP Q6H PRN PRN Reason: Nausea/Vomiting Sodium Chloride (Sodium Chloride 1 Gm Tab) 1 gm PO BID [facility] Last Admin: 08/13/20 08:59 Dose: 1 gm Documented by: Sodium Chloride (Flush - Normal Saline 10 Ml Syringe) 10 ml IVF Q12HR [facility] Last Admin: 08/13/20 09:02 Dose: 10 ml Documented by: Sodium Chloride (Flush - Normal Saline 10 Ml Syringe) 10 ml IVF PRN PRN PRN Reason: Saline Flush Spironolactone (Spironolactone 100 Mg Tab) 100 mg PO BID [facility] Last Admin: 08/13/20 09:01 Dose: 100 mg Documented by: Sucralfate (Sucralfate 1 Gm/10 Ml Udcup) 1 gm PO QID PRN PRN Reason: ODNYOPHAGIA Tramadol HCl (Tramadol Hcl 50 Mg Tab) 50 mg PO Q4H PRN PRN Reason: Pain 4-6 Last Admin: 08/12/20 23:06 Dose: 50 mg Documented by: Vital Signs & Weight: Vital Signs Temp Pulse Resp BP BP BP Pulse Ox 08/13/20 11:44 97.8 F 87 24 H 107/51 L 94 L 08/13/20 09:43 110/53 L 111/56 L 08/13/20 08:33 94 L 08/13/20 08:04 97.6 F 83 22 H 112/55 L 94 L 08/13/20 06:00 81 28 H 130/60 93 L 08/13/20 03:50 97.8 F 80 18 123/60 98 08/13/20 01:14 98 Pulse Ox Pulse Ox 08/13/20 11:44 08/13/20 09:43 96 97 08/13/20 08:33 08/13/20 08:04 08/13/20 06:00 08/13/20 03:50 08/13/20 01:14 Admit Weight 210 lb 5 oz Weight 209 lb - Physical Exam General: alert & oriented x3, other (Jaundice) HEENT: mucus membranes moist Neck: supple neck Cardiac: regular rate and rhythm, audible murmur, diastolic murmur Lungs: rales - left, rales - right Abdomen: unremarkable Extremities: no cyanosis, 2+ LE edema - Labs Result Diagrams: 08/13/20 04:02 08/13/20 04:02 Troponin/CKMB CK-MB (CK-2) 1.9 ng/mL (0-6.6) 08/09/20 20:15 Troponin I 0.254 ng/mL (< 0.028) H 08/10/20 05:58 - Assessment/Plan Assessment/Plan: 08/13 A/P AV endocarditis cirrhosis Thrombocytopenia cardiomyopathy ETOH abuse Pt with visible vegetation noted on echo (+)BC noted Given severe AI and cardiomyopathy, recommendation is valve replacement Given co-morbidities, pt unlikely to be a good candidate Will consult CV surgery for their opinion Abx Lasix IV treat with CHF meds but unliklye to suffice given severe AI If not a surgical candidate, progrnosis is poor
[2020-08-13 13:23] LABS: INR-International Normal Ratio 2.5; Prothrombin Time 27.3 sec (12.0-14.7)
[2020-08-13 13:35] LABS: ALT (SGPT) 11 U/L (8-55); AST (SGOT) 35 U/L (5-34); Alkaline Phosphatase 130 U/L (40-110); Bilirubin, Direct 3.4 mg/dL (0.1-0.3); Bilirubin, Total 6.3 mg/dL (0.2-1.2); Protein, Total 5.8 g/dL (6.0-8.3)
[2020-08-13 16:02] LABS: HBCM Index 0.13 S/CO (0-0.79); HBSAg Index 0.13 S/CO (0-0.99); Hep A IgM AB Non-Reactive (NonReactive); Hep A IgM S/CO 0.57 S/CO (0-0.79); Hep B Surf Ag Non-Reactive S/CO (NonReactive); Hep C IgG Ab Non-Reactive (NonReactive); Hep C Index 0.15 S/CO (0-0.79); Hepatitis B Core IgM Abs Non-Reactive (NonReactive); Thyroid Stimulating Hormone 1.8442 uIU/mL (0.35-4.94)
--- NOTE | 2020-08-13 18:56 | CON ---
DATE OF CONSULTATION: 08/13/2020 CHIEF COMPLAINT: Cirrhosis and endocarditis. HISTORY OF PRESENT ILLNESS: Mr. Crowley is a 50-year-old man with decompensated alcoholic cirrhosis, who was admitted to the hospital with shortness of breath and found to have endocarditis. He underwent EGD and colonoscopy a couple of weeks ago by Dr. Yadav for evaluation of iron deficiency anemia. These procedures were unremarkable overall. He had some portal hypertensive gastropathy and biopsies were negative. His last drink of alcohol was 7 months ago. He has had no nausea or vomiting. No abdominal pain. He has had some chronic diarrhea with loose stools up to 5 times per day over the last several months. He has been on broad-spectrum antibiotics now for his endocarditis, but his diarrhea has not worsened acutely. He has had lower extremity edema for years. CT scan on August 09, 2020, showed mild ascites and anasarca. Cirrhotic changes of the liver and portal hypertension were also noted. He has been recommended to undergo evaluation for aortic valve replacement due to the endocarditis; however, his operative risk is noted to be extremely high from a liver standpoint. He has not had problems with encephalopathy or confusion acutely. 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 He reports his last drink was 7 months ago. Diabetes mellitus type 2. Hyperlipidemia. Hypertension. Degenerative joint disease. PAST SURGICAL HISTORY: Gastric resection for peptic ulcer, hernia repair, neck surgery, back surgery, recent upper and lower endoscopy. FAMILY HISTORY: Negative for GI malignancy. SOCIAL HISTORY: Quit drinking seven months ago. Occasional smoking cigarettes. No drugs. He lives alone, but is on property in [place] close to his mother and sister and brother as well. ALLERGIES: PENICILLIN, VANCOMYCIN, AND LISINOPRIL. MEDICATIONS: Include: 1. Cefazolin. 2. Ferrous sulfate. 3. Lasix 20 mg IV twice daily. 4. Gabapentin. 5. Glipizide. 6. Insulin. 7. Nadolol 20 mg daily. 8. Multiple vitamin. 9. Melatonin. 10. Spironolactone 100 mg twice daily. REVIEW OF SYSTEMS: Negative x10 systems reviewed except as stated in the history of present illness. PHYSICAL EXAMINATION: VITAL SIGNS: Temperature 97.8, pulse 87, and blood pressure 107/51. GENERAL: He is in no acute distress. Alert and oriented x3. He is jaundiced. HEENT: He has scleral icterus. Oropharynx is clear without lesions. NECK: No cervical or supraclavicular lymphadenopathy. LUNGS: Clear to auscultation bilaterally. HEART: Regular rate and rhythm without murmur. ABDOMEN: Soft, nontender, and nondistended. Bowel sounds are present. He has anasarca on the wall of his abdomen. EXTREMITIES: He has 2+ lower extremity edema bilaterally. NEUROLOGIC: No asterixis on neurological exam. LABORATORY DATA: White blood cell count 5.3, hemoglobin 7.8, platelets 74, MCV 76. INR 2.5. Creatinine 0.63, sodium 132. Bilirubin 6.3, AST 35, ALT 11, alkaline phosphatase 130, albumin 2.0, and ferritin 41. IMPRESSION: 1. Decompensated cirrhosis. class C, MELD score of 24. His last drink of alcohol was 7 months ago. His operative risks from a liver standpoint for cardiac surgery would be in the 70% range mortality. 2. Endocarditis. 3. Portal hypertension. He is on nadolol. Recent endoscopy did not show obvious varices. 4. Anasarca and ascites. He is on salt-restricted diet and appropriate spironolactone and furosemide. 5. Chronic diarrhea. He has had loose stools up to 5 times per day for the last several months. I will check stool studies and rule out C diff. He is requiring long-term antibiotics now for his endocarditis. RECOMMENDATIONS: 1. Stool studies. 2. Continue low-salt diet and diuretics. 3. Continue nadolol. 4. Unfortunately, he has extremely high mortality risk with any cardiac surgery. Job ID: [id number]
[2020-08-13] MEDS: Melatonin 3 MG TAB PO SCH (21:16)
[2020-08-13] MEDS: Furosemide 20 MG/2 ML VIAL SLOW IVP SCH (21:16)
--- NOTE | 2020-08-13 23:56 | CON ---
DATE OF CONSULTATION: HISTORY OF PRESENT ILLNESS: This is an unfortunate 50-year-old gentleman, with a history of alcoholic cirrhosis, who was admitted a couple of months ago with a febrile illness. He was readmitted at this time due to lethargy, ultimately being found to have positive blood cultures for staphylococci species. He had a cardiac echo showing severe aortic valve regurgitation with a vegetation, which was in contrast to a remote echo that was normal. Ejection fraction was also diminished. He is currently undergoing treatment. I have been asked to evaluate him for possible surgical intervention. PAST MEDICAL HISTORY: Most notable for alcoholic cirrhosis, although he has been alcohol free for the past seven months. His past medical history otherwise includes diabetes, hyperlipidemia, arthritis, hypertension, and previously noted peptic ulcer disease. PAST SURGICAL HISTORY: Includes abdominal hernia repair, neck surgery, back surgery, and he also had a perforated peptic ulcer, treated by Dr. Koenig. SOCIAL HISTORY: Patient states he has not had anything to drink in seven months and he is accompanied by his mother alpesh to confirms this. He uses tobacco products, but smokes only occasionally. ALLERGIES: PENICILLIN, VANC, AND LISINOPRIL. MEDICATIONS: Include; 1. Nadolol 20. 2. Gabapentin 300. 3. Torsemide 10. 4. Glipizide 5. 5. Spironolactone 100 b.i.d. plus he is currently on cefazolin. PHYSICAL EXAMINATION: GENERAL: He is an alert, cooperative gentleman, in no distress. Height 6 feet 1 inch and recorded weight of 209 pounds. NECK: No carotid bruits. No JVD. LUNGS: Clear to auscultation anteriorly. CARDIAC: Reveals systolic and diastolic murmurs across the precordium. ABDOMEN: Slightly protuberant with a positive wave. EXTREMITIES: He has mild edema in both lower extremities. PERTINENT LABORATORY VALUES: Include a normal creatinine. His hemoglobin is 7.8. His current platelet count is 74,000. His white count is rather unremarkable. His bilirubin was 8 on admission. His INR was 2.8 on admission. His albumin was 2.0. ASSESSMENT AND PLAN: Patient is Child C cirrhotic with congestive heart failure related to aortic insufficiency due to valvular endocarditis. At this time, the patient's cirrhotic disease makes him unacceptable surgical candidate and he will have to be treated medically, although I have explained to he and his mother that his survival with medical management is probably poor long-term should he survive this episode of endocarditis due to the underlying severe aortic valve insufficiency. Due to his valve insufficiency, I do not think he would be a TAVR candidate in the future either. Job ID: [id number]
[2020-08-14 04:41] LABS: Anion Gap 10 mmol/L (10-20); BUN (Urea Nitrogen) 6 mg/dL (8.4-25.7); Calc. Creatinine Clearance 189 mL/min (70-130); Carbon Dioxide 25 mmol/L (22-29); Chloride 103 mmol/L (98-107); Estimated GFR-MDRD Greater than 90; Glucose 120 mg/dL (70-105); Potassium 3.6 mmol/L (3.5-5.1); Sodium 134 mmol/L (136-145)
[2020-08-14 04:43] LABS: Lymphocytes 42 % (21-51); MDiff Complete? YES; Mean Corpuscular HGB CONC 30.8 g/dL (32.0-36.0); Mean Corpuscular Hemoglobin 23.6 pg (27.0-31.0); Mean Corpuscular Volume 76.6 fL (78.0-98.0); Mean Platelet Volume 5.5 fL (7.4-10.4); Monocytes 16 % (0-10); Neutrophil 42 % (42-75); Platelet Count 83 thou/uL (130-400); Platelet Morphology Comment Appears Decreased; Red Blood Cell (RBC) Count 3.37 mill/uL (4.70-6.10); White Blood Cell (WBC) Count 4.5 thou/uL (4.8-10.8)
[2020-08-14] MEDS: CEFAZOLIN 2 GM in Premix Bag 1 BAG IVPB SCH ×3 (05:41→20:55)
[2020-08-14] MEDS: Gabapentin 300 MG CAP PO SCH (08:48)
[2020-08-14] MEDS: Ferrous Sulfate 325 MG TAB PO SCH (08:48)
[2020-08-14] MEDS: Escitalopram Oxalate 20 mg Tablet PO SCH (08:49)
[2020-08-14] MEDS: Multivit, Chewable SF 1 TAB PO SCH (08:49)
[2020-08-14] MEDS: Bupropion 150 MG XL TAB PO SCH (08:49)
[2020-08-14] MEDS: Nadolol 40 MG TAB PO SCH (08:49)
[2020-08-14] MEDS: Spironolactone 100 MG TAB PO SCH ×2 (08:49→20:55)
[2020-08-14] MEDS: Sodium Chloride 1 GM TAB PO SCH ×2 (08:50→20:55)
[2020-08-14] MEDS: glipiZIDE 5 MG TAB PO SCH (08:50)
[2020-08-14] MEDS: Furosemide 20 MG/2 ML VIAL SLOW IVP SCH (08:50)
--- NOTE | 2020-08-14 10:13 | PDOC.HOSPP ---
- Subjective Encounter Date: 08/14/20 Encounter Time: 10:10 Subjective: Pt. is in bed. He states he is not doing well and is feeling depressed after speaking to cardiology and learning he isn't a candidate for AVR. He is still having SOB and pain in his lower back on ambulation, but states there are no issues with either when he is resting. He states he is having diarrheal episodes around 5x a day but C. diff test is negative. - Objective Vital Signs & Weight: Vital Signs (12 hours) Temp Pulse Resp BP BP Pulse Ox 08/14/20 07:31 98.6 F 80 19 122/58 L 96 08/14/20 03:55 98.7 F 84 14 118/58 L 94 L 08/14/20 03:27 93 L Weight Admit Weight 210 lb 5 oz Weight 203 lb 5 oz I&O: 08/13/20 08/14/20 08/15/20 06:59 06:59 06:59 Intake Total 2580 1400 Output Total 2000 1325 Balance 580 75 Result Diagrams: 08/14/20 03:57 08/14/20 03:57 Additional Labs: Accuchecks 08/14/20 08/13/20 08/13/20 06:00 20:20 10:44 POC Glucose 156 H 203 H 180 H 08/12/20 17:45 POC Glucose 93 Hospitalist ROS - Medication Medications: Active Medications Generic Name Dose Route Start Last Admin Trade Name Freq PRN Reason Stop Dose Admin Bupropion HCl 150 mg 08/11/20 09:00 08/14/20 08:49 Bupropion 150 Mg Xl Tab PO 150 mg DAILY HARPREET Administration Escitalopram Oxalate 20 mg 08/11/20 09:00 08/14/20 08:49 Escitalopram Oxalate 20 Mg Tablet PO 20 mg DAILY HARPREET Administration Ferrous Sulfate 325 mg 08/11/20 08:00 08/14/20 08:48 Ferrous Sulfate 325 Mg Tab PO 325 mg QAM-WM HARPREET Administration Furosemide 20 mg 08/13/20 21:00 08/14/20 08:50 Furosemide 20 Mg/2 Ml Vial SLOW IVP 20 mg BID HARPREET Administration Gabapentin 300 mg 08/11/20 09:00 08/14/20 08:48 Gabapentin 300 Mg Cap PO 300 mg DAILY HARPREET Administration Glipizide 5 mg 08/11/20 07:30 08/14/20 08:50 Glipizide 5 Mg Tab PO 5 mg DAILY-AC HARPREET Administration Cefazolin Sodium/Dextrose 2 gm 50 mls @ 100 mls/hr 08/10/20 22:00 08/14/20 05:41 / Device IVPB 50 mls Q8HR HARPREET Administration Insulin Human Lispro 0 units 08/10/20 14:50 08/13/20 11:51 Humalog 300 Units/3 Ml Vial SC 2 unit .MILD SLIDING SCALE PRN Administration Mild Correctional Scale Insulin Human Lispro 0 units 08/10/20 14:50 08/12/20 23:13 Humalog 300 Units/3 Ml Vial SC 2 unit .BEDTIME SLIDING SC PRN Administration Bedtime Correctional Scale Melatonin 6 mg 08/11/20 21:00 08/13/20 21:16 Melatonin 3 Mg Tab PO 6 mg HS HARPREET Administration Multivitamins 1 tab 08/11/20 09:00 08/14/20 08:49 Multivit, Chewable Sf 1 Tab PO 1 tab DAILY HARPREET Administration Nadolol 20 mg 08/11/20 09:00 08/14/20 08:49 Nadolol 40 Mg Tab PO 20 mg DAILY HARPREET Administration Ondansetron HCl 4 mg 08/10/20 10:40 08/14/20 06:15 Ondansetron Pf 4 Mg/2 Ml Vial IVP 4 mg Q6H PRN Administration Nausea/Vomiting Sodium Chloride 1 gm 08/12/20 09:00 08/14/20 08:50 Sodium Chloride 1 Gm Tab PO 1 gm BID HARPREET Administration Sodium Chloride 10 ml 08/12/20 09:00 08/14/20 08:50 Flush - Normal Saline 10 Ml Syringe IVF 10 ml Q12HR HARPREET Administration Spironolactone 100 mg 08/10/20 21:00 08/14/20 08:49 Spironolactone 100 Mg Tab PO 100 mg BID HARPREET Administration Tramadol HCl 50 mg 08/10/20 19:56 08/12/20 23:06 Tramadol Hcl 50 Mg Tab PO 50 mg Q4H PRN Administration Pain 4-6 - Exam General Appearance: NAD, awake alert, ill appearing Eye: scleral icterus Heart: RRR, no murmur, no gallops, no rubs, normal peripheral pulses Respiratory: CTAB, no wheezes, no rales, no ronchi, normal chest expansion, no tachypnea Gastrointestinal: soft, non-tender, non-distended, normal bowel sounds, no palpable masses, no hepatomegaly, no splenomegaly Extremities: no cyanosis, no clubbing, 1+ LE edema Psychiatric: normal behavior, A&O x 3, oriented to person, oriented to place, oriented to time Psychiatric - other findings: Sad affect Hosp A/P - Plan Fall with the back pain Worsening anasarca and a new pleural effusion Probable nonischemic cardiomyopathy per EF of 40% Aortic valve infective endocarditis Left ventricle dilated Tatian Gram-positive cocci bacteremia Pulmonary hypertension -On cefazolin 2 g IV every 8 hours. -No splinter hemorrhages or Janeway lesions noted. -Repeating the blood cultures. If it remains negative for [address] PICC line- Abnormal troponin due to metabolic mismatch type II demand ischemia. Alcoholic cirrhosis -Patient on nadolol at home will continue the same. -On Lasix as well as spironolactone. -He may need lactulose down the road. The at this point he is looks stable and he is not on home regimen of lactulose Type 2 diabetes mellitus -Patient on Metformin and glipizide. -His creatinine in the normal range we will continue the home regimen along with sliding scale insulin. Full code 08/12 Infective Endocarditis Patient has severe aortic regurgitation and EF of 40%.--- -Patient has been afebrile and BP stable. Physical exam is negative for splinter hemorrhages, janeway lesions, or osler nodes. Murmur is present. -Blood cultures positive for staphylococcus sciuri on 08/09 -Repeat blood cultures on 08/11 currently show no growth to date; if no growth by tomorrow , PICC line may be placed -Currently on cephazolin--probably for 4 to 6 weeks duration if repeat culture is negative. Hypokalemia- currently on furosemide and spironolactone -Replace Hyponatremia- seems to be his baseline according to past records -currently on NaCl -Caution with the salt supplement -Lumbar Spine MRI was limited due to pt. movement but showed lumbar spine degenerative changes. -PT consult to help mobilize pt 08/13 Infective Endocarditis -Severe aortic regurgitation/aortic insufficiency and EF of 40% - no findings of splinter hemorrhages, janeway lesions, or osler nodes on physical exam. -This is a high risk surgery on a patient with several comorbidities that would not be conducive for surgery - Symptomatic nonischemic cardiomyopathy with a EF of 40 -Gentle IV diuresis --Patient had a severe episode of SOB last night and CXR showed worsening CHF. -Blood cultures positive for staphylococcus sciuri on 08/09 -Repeat blood cultures on 08/11 currently show no growth to date--PICC line may be placed -Can continue cephazolin for 4-6 weeks ---Cardiology report reviewed--state pt may need AVR but poor candidate due to alcoholic cirrhosis Alcoholic Cirrhosis -MELD score of 28 points for our pt; mortality at 30 days ranges from 6% (MELD score <8) to greater than 50% (MELD score >20) when assessing for surgical risk -GI consulted for their input in the context of cirrhosis and evaluation for possible AVR - cardiovascular consult -I talked to Dr. Roland yesterday evening and he is aware of this patient Hyponatremia-due to cirrhosis -seems to be his baseline according to past records- -his mentation at baseline with no sign of confusion -Caution with salt supplements; currently on NaCl -sodium at 132 today Hypokalemia: Potassium within normal range -On furosemide and spironolactone --No need for potassium supplement as he is on a high dose of spironolactone at 100 mg twice a day Students noted discussed and edited as deemed necessary. 08/14 Infective Endocarditis -Severe aortic regurgitation/aortic insufficiency and EF of 40% -No findings of splinter hemorrhages, janeway lesions, or osler nodes on physical exam. -Revised Cardiac Index score of 3 demonstrates Class IV Risk with 15% risk of mortality--not a good surgical candidate -Cardiology report reviewed--state pt may need AVR but poor candidate due to alcoholic cirrhosis -Cardiovascular report reviewed--states pt is not a surgical candidate; recomme nds medical management-will most likely not be a surgical candidate for TAVR in the future -Blood cultures positive for staphylococcus sciuri on 08/09 -Repeat blood cultures on 08/11 currently show no growth to date -PICC line should be placed today -Can continue cephazolin for 4-6 weeks CXR showed worsening CHF -BNP increased to 2578.3 -Increased lasix to 40 mg BID -Urine ouput is currently +75mL -Will do strict urine output monitoring Alcoholic Cirrhosis -MELD score of 26 points today for our pt with a decreased total bilirubin of 6.3; mortality at 30 days ranges from 6% (MELD score <8) to greater than 50% (MELD score >20) when assessing for surgical risk -MELD scores >10 qualify for liver transplantation; pt states he has been sober for 7 months now so he may be a candidate -GI following -Ordered lactulose PRN Hyponatremia-due to cirrhosis -seems to be his baseline according to past records- -his mentation at baseline with no sign of confusion -Caution with salt supplements; currently on NaCl -sodium at 134 today Hypokalemia: Potassium within normal range -On furosemide and spironolactone --No need for potassium supplement as he is on a high dose of spironolactone at 100 mg twice a day Plan reviewed. I appreciate her tremendous help. Will do the PICC line and strict in and output we will initiate to the 6 weeks course of antibiotic starting after the PICC line placement. Once the antibiotic course is completed he needs a repeat echo to assess the aortic valve endocarditis at that time. So evaluated the EF which is 40% currently and hopefully it will improve after the antibiotic course.
[2020-08-14] MEDS ORDERED: Furosemide 20 MG/2 ML VIAL SLOW IVP SCH ×2 (10:14→11:00)
[2020-08-14] MEDS ORDERED: Furosemide 40 MG/4 ML VIAL SLOW IVP SCH (10:30)
--- NOTE | 2020-08-14 14:55 | SPC ---
Left upper extremity PICC placement sonographic guided HISTORY: Endocarditis. FINDINGS: After explaining the procedure and answering all questions, the left upper extremity was pr epped and draped in usual sterile fashion. Sterile technique, buffered local anesthesia, sonographic guidance, and a 22-gauge needle were used t o carefully access the left basilic vein. Standard technique was used to place the tip of a 5 Turkish single lumen PICC so that the tip lies at the level of the superior vena cava. Catheter was flushed and secured externally. Patient tolerated the procedure well and was returned in unchanged condition. IMPRESSION : Left upper extremity PICC is ready for use.
--- NOTE | 2020-08-14 15:42 | PRG ---
DATE OF SERVICE: 08/14/2020 SUBJECTIVE: Mr. Crowley's status is unchanged. No current complaints. OBJECTIVE: VITAL SIGNS: 100/50, pulse 71, temp 98.3. LUNGS: Clear to auscultation. HEART: Regular rate and rhythm. ABDOMEN: Protuberant. EXTREMITIES: 2+ pitting edema. SKIN: Jaundice. PERTINENT LABORATORY DATA: Hemoglobin 8.0, hematocrit 25.8, white blood cell count 4.5. Creatinine 0.62. BNP of 2578. Albumin 0.6, total bilirubin 6.3. IMPRESSION: 1. Aortic valve endocarditis. 2. Cirrhosis. 3. Alcohol abuse. 4. Malnutrition. 5. Thrombocytopenia. RECOMMENDATIONS: Mr. Crowley has been seen and evaluated by CV Surgery. As expected, Mr. Crowley is not felt to be an appropriate surgical candidate. Does not appear to be a surgical candidate based on his comorbidities. Unfortunately, this will be a medical therapy only. Would continue treatment with antibiotic therapy. Unfortunately, based on his severe AI, medical therapy is unlikely to improve his status from a CHF standpoint. Based on the above, would certainly consider conservative and comfort measures. I have no further recommendations. Job ID: [id number]
[2020-08-14] MEDS: Furosemide 40 MG/4 ML VIAL SLOW IVP SCH (15:44)
--- NOTE | 2020-08-14 17:03 | PRG ---
DATE OF SERVICE: 08/14/2020 REASON FOR CONSULTATION: Cirrhosis. SUBJECTIVE: Overnight, the patient did not have any acute events or problems and has been able to tolerate a diet without difficulty. Today, he states that he just continues to feel tired and fatigued, but otherwise is doing well. Currently, he denies any nausea, vomiting, fevers, chills, hematemesis, melena, hematochezia, dysphagia, or odynophagia. OBJECTIVE: VITAL SIGNS: Temperature 98.3, pulse 79, blood pressure 99/52, respiratory rate 21, saturating 93% on room air. GENERAL: The patient was lying in bed, in no acute distress. Alert and oriented x4. CARDIOVASCULAR: Regular rate and rhythm, but with a 3/6 systolic murmur best heard at the right upper sternal border in addition to a 3/6 diastolic murmur best heard at the fifth intercostal space in the mid clavicular line. EXTREMITIES: No cyanosis, clubbing, or edema. LABORATORY DATA: CBC with a white blood cell count of 4.5, hemoglobin 8, hematocrit 25.8, platelets 83. Chemistry with a sodium of 134, potassium 3.6, chloride 103, CO2 of 25, BUN 6, creatinine 0.62, glucose 120. Infectious stool studies were negative for Clostridium difficile, Campylobacter, Giardia, and Cryptosporidium. IMAGING DATA: No current GI imaging is available for review. 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 1. Alcoholic cirrhosis: The patient is presenting with a past medical history of cirrhosis likely from chronic alcohol abuse, now presenting with fairly compensated disease despite a Child Resendiz class C and calculated MELD score of 24. Per the patient, his last drink of alcohol was approximately 7 months ago and has been sober since. However, he does have a history of ascites indicative of decompensated disease, but currently controlled on a salt restricted diet and use of spironolactone and furosemide. He underwent upper endoscopy on May 15, 2020 that did not show any evidence of esophageal or gastric varices, although there is no documentation of the patient having had a screening colonoscopy in the past. CT scan of the abdomen/pelvis obtained on August 09, 2020, did not show any evidence of overt hepatocellular carcinoma, but he does have some small hypodense diseases within the liver that are stable when compared to previous imaging, making HCC a much less likely diagnosis at this time. Based on his clinical history and time of sobriety along with an elevated MELD score, the patient was seen to be a suitable candidate for liver transplantation. However, with his current staphylococcal endocarditis and concurrent infection, this is an absolute contraindication to liver transplantation and he will need to be treated for this infection prior to being even considered for liver transplantation purposes. Recommendations;. a. Would continue the spironolactone and the furosemide at the current dosing in addition to maintaining a low-sodium diet for maintenance of his ascites. b. Continue treatment for his staphylococcal endocarditis as the patient is not currently a transplant candidate due to his active infection. c. We will continue the patient on Nadolol as part of treatment for his portal hypertension, although he does not have a history of esophageal varices. d. Repeat EGD and colonoscopy are not indicated at this time. 2. Diarrhea: The patient states he has had approximately 3 to 4 semi-solid liquid bowel movements over the last 24 hours and has been doing so for at least the last week. Infectious stool studies obtained during this admission have been negative thus far for an infectious pathogen. However, the patient is now on chronic antibiotics, which could potentially generate a diarrhea picture/antibiotic induced diarrhea. The patient also has lactulose on his chart as needed, and if the patient could be receiving this medication, could also contribute to his current diarrhea. Recommendations;. a. Would discontinue the lactulose unless needed for possible hepatic encephalopathy, especially in light of his current diarrhea. b. Would continue to monitor the patient's frequency of diarrhea, and if worsening, we will consider repeat stool studies for possible infectious pathogen while on chronic antibiotics (especially Clostridium difficile). c. Could consider administration of Citrucel tablet as part of a stool bulking technique and/or use of loperamide as an antimotility agent for his diarrhea. 3. Infective endocarditis: The patient is presenting with increased fatigue and weakness with workup during this admission positive for blood culture showing the presence of staphylococcus sciuri. Echocardiogram obtained during this admission as well, showed the presence of vegetations on his aortic valve, creating a congestive heart failure picture. Evaluation by the cardiothoracic surgeon deems that the patient is not a surgical candidate at this time due to his concurrent diagnosis of cirrhosis and increased risk of complication from the procedure. Based on this, the patient will need chronic antibiotic administration through IV/PICC line and until the infection is cleared, he is not a candidate for liver transplantation. Recommendations;. a. Would continue with appropriate antibiotic for long-term management of his infective endocarditis. b. Would defer to Cardiology Service for further management of the aortic valve agitation. At this time, the patient's chronic liver disease is currently managed at this time with no additional recommendations, but rather the patient's infective endocarditis is the more pressing issue, and again, the patient is not a transplant candidate as long as he has active infection in place (absolute contraindication). Given the patient's severely poor prognosis, consultation of hospice is not unreasonable at this time. We will sign off at this time. Please call with any additional questions Job ID: [id number]
[2020-08-14] MEDS: Melatonin 3 MG TAB PO SCH (20:54)
[2020-08-15 05:00] LABS: Anion Gap 8 mmol/L (10-20); BUN (Urea Nitrogen) 6 mg/dL (8.4-25.7); Calc. Creatinine Clearance 180 mL/min (70-130); Calcium 7.9 mg/dL (7.8-10.44); Carbon Dioxide 29 mmol/L (22-29); Chloride 101 mmol/L (98-107); Estimated GFR-MDRD Greater than 90; Glucose 116 mg/dL (70-105); Potassium 3.6 mmol/L (3.5-5.1); Sodium 134 mmol/L (136-145)
[2020-08-15] MEDS: Furosemide 40 MG/4 ML VIAL SLOW IVP SCH ×2 (06:00→14:48)
[2020-08-15] MEDS: CEFAZOLIN 2 GM in Premix Bag 1 BAG IVPB SCH ×3 (06:01→21:31)
[2020-08-15] MEDS: Gabapentin 300 MG CAP PO SCH (09:30)
[2020-08-15] MEDS: Bupropion 150 MG XL TAB PO SCH (09:30)
[2020-08-15] MEDS: Spironolactone 100 MG TAB PO SCH ×2 (09:30→21:31)
[2020-08-15] MEDS: glipiZIDE 5 MG TAB PO SCH (09:30)
[2020-08-15] MEDS: Ferrous Sulfate 325 MG TAB PO SCH (09:30)
[2020-08-15] MEDS: Escitalopram Oxalate 20 mg Tablet PO SCH (09:30)
[2020-08-15] MEDS: Multivit, Chewable SF 1 TAB PO SCH (09:30)
[2020-08-15] MEDS: Sodium Chloride 1 GM TAB PO SCH ×2 (09:30→21:31)
[2020-08-15] MEDS: Nadolol 40 MG TAB PO SCH (09:31)
--- NOTE | 2020-08-15 12:23 | PDOC.HOSPP ---
- Subjective Encounter Date: 08/15/20 Encounter Time: : Subjective: Pt. is in bed and appears in no acute distress. He states he is still having some shortness of breath and diarrhea. Preliminary stool culture showed normal enteric noble and no E.Coli O157. He's been afebrile. - Objective Vital Signs & Weight: Vital Signs (12 hours) Temp Pulse Resp BP BP Pulse Ox 08/15/20 08:00 98.9 F 85 18 113/53 L 95 08/15/20 06:00 94 L 08/15/20 04:00 98.9 F 89 18 112/54 L 94 L Weight Admit Weight 210 lb 5 oz Weight 202 lb 6.4 oz I&O: 08/14/20 08/15/20 08/16/20 06:59 06:59 06:59 Intake Total 1400 1510 Output Total 1325 2700 Balance 75 -1190 Result Diagrams: 08/14/20 03:57 08/15/20 04:05 Additional Labs: Accuchecks 08/15/20 08/14/20 08/14/20 10:53 19:48 17:02 POC Glucose 183 H 148 H 116 H Hospitalist ROS - Medication Medications: Active Medications Generic Name Dose Route Start Last Admin Trade Name Freq PRN Reason Stop Dose Admin Bupropion HCl 150 mg 08/11/20 09:00 08/15/20 09:30 Bupropion 150 Mg Xl Tab PO 150 mg DAILY HARPREET Administration Escitalopram Oxalate 20 mg 08/11/20 09:00 08/15/20 09:30 Escitalopram Oxalate 20 Mg Tablet PO 20 mg DAILY HARPREET Administration Ferrous Sulfate 325 mg 08/11/20 08:00 08/15/20 09:30 Ferrous Sulfate 325 Mg Tab PO 325 mg QAM-WM HARPREET Administration Furosemide 40 mg 08/14/20 14:00 08/15/20 06:00 Furosemide 40 Mg/4 Ml Vial SLOW IVP 40 mg 0600,1400 HARPREET Administration Gabapentin 300 mg 08/11/20 09:00 08/15/20 09:30 Gabapentin 300 Mg Cap PO 300 mg DAILY HARPREET Administration Glipizide 5 mg 08/11/20 07:30 08/15/20 09:30 Glipizide 5 Mg Tab PO 5 mg DAILY-AC HARPREET Administration Cefazolin Sodium/Dextrose 2 gm 50 mls @ 100 mls/hr 08/10/20 22:00 08/15/20 06:01 / Device IVPB 50 mls Q8HR HARPREET Administration Insulin Human Lispro 0 units 08/10/20 14:50 08/13/20 11:51 Humalog 300 Units/3 Ml Vial SC 2 unit .MILD SLIDING SCALE PRN Administration Mild Correctional Scale Insulin Human Lispro 0 units 08/10/20 14:50 08/12/20 23:13 Humalog 300 Units/3 Ml Vial SC 2 unit .BEDTIME SLIDING SC PRN Administration Bedtime Correctional Scale Melatonin 6 mg 08/11/20 21:00 08/14/20 20:54 Melatonin 3 Mg Tab PO 6 mg HS HARPREET Administration Multivitamins 1 tab 08/11/20 09:00 08/15/20 09:30 Multivit, Chewable Sf 1 Tab PO 1 tab DAILY HARPREET Administration Nadolol 20 mg 08/11/20 09:00 08/15/20 09:31 Nadolol 40 Mg Tab PO 20 mg DAILY HARPREET Administration Sodium Chloride 1 gm 08/12/20 09:00 08/15/20 09:30 Sodium Chloride 1 Gm Tab PO 1 gm BID HARPREET Administration Sodium Chloride 10 ml 08/12/20 09:00 08/15/20 09:31 Flush - Normal Saline 10 Ml Syringe IVF 10 ml Q12HR HARPREET Administration Spironolactone 100 mg 08/10/20 21:00 08/15/20 09:30 Spironolactone 100 Mg Tab PO 100 mg BID HARPREET Administration Tramadol HCl 50 mg 08/10/20 19:56 08/12/20 23:06 Tramadol Hcl 50 Mg Tab PO 50 mg Q4H PRN Administration Pain 4-6 - Exam General Appearance: NAD, awake alert, ill appearing Heart: RRR, no gallops, no rubs, normal peripheral pulses, murmur present Respiratory: CTAB, no wheezes, no rales, no ronchi, normal chest expansion, no tachypnea Gastrointestinal: soft, non-tender, non-distended, normal bowel sounds, no palpable masses, no hepatomegaly, no splenomegaly Extremities: no cyanosis, no clubbing, no edema Psychiatric: normal affect, normal behavior, A&O x 3 Hosp A/P - Plan Fall with the back pain Worsening anasarca and a new pleural effusion Probable nonischemic cardiomyopathy per EF of 40% Aortic valve infective endocarditis Left ventricle dilated Tatian Gram-positive cocci bacteremia Pulmonary hypertension -On cefazolin 2 g IV every 8 hours. -No splinter hemorrhages or Janeway lesions noted. -Repeating the blood cultures. If it remains negative for [address] PICC line- Abnormal troponin due to metabolic mismatch type II demand ischemia. Alcoholic cirrhosis -Patient on nadolol at home will continue the same. -On Lasix as well as spironolactone. -He may need lactulose down the road. The at this point he is looks stable and he is not on home regimen of lactulose Type 2 diabetes mellitus -Patient on Metformin and glipizide. -His creatinine in the normal range we will continue the home regimen along with sliding scale insulin. Full code 08/12 Infective Endocarditis Patient has severe aortic regurgitation and EF of 40%.--- -Patient has been afebrile and BP stable. Physical exam is negative for splinter hemorrhages, janeway lesions, or osler nodes. Murmur is present. -Blood cultures positive for staphylococcus sciuri on 08/09 -Repeat blood cultures on 08/11 currently show no growth to date; if no growth by tomorrow , PICC line may be placed -Currently on cephazolin--probably for 4 to 6 weeks duration if repeat culture is negative. Hypokalemia- currently on furosemide and spironolactone -Replace Hyponatremia- seems to be his baseline according to past records -currently on NaCl -Caution with the salt supplement -Lumbar Spine MRI was limited due to pt. movement but showed lumbar spine degenerative changes. -PT consult to help mobilize pt 08/13 Infective Endocarditis -Severe aortic regurgitation/aortic insufficiency and EF of 40% - no findings of splinter hemorrhages, janeway lesions, or osler nodes on physical exam. -This is a high risk surgery on a patient with several comorbidities that would not be conducive for surgery - Symptomatic nonischemic cardiomyopathy with a EF of 40 -Gentle IV diuresis --Patient had a severe episode of SOB last night and CXR showed worsening CHF. -Blood cultures positive for staphylococcus sciuri on 08/09 -Repeat blood cultures on 08/11 currently show no growth to date--PICC line may be placed -Can continue cephazolin for 4-6 weeks ---Cardiology report reviewed--state pt may need AVR but poor candidate due to alcoholic cirrhosis Alcoholic Cirrhosis -MELD score of 28 points for our pt; mortality at 30 days ranges from 6% (MELD score <8) to greater than 50% (MELD score >20) when assessing for surgical risk -GI consulted for their input in the context of cirrhosis and evaluation for possible AVR - cardiovascular consult -I talked to Dr. Roland yesterday evening and he is aware of this patient Hyponatremia-due to cirrhosis -seems to be his baseline according to past records- -his mentation at baseline with no sign of confusion -Caution with salt supplements; currently on NaCl -sodium at 132 today Hypokalemia: Potassium within normal range -On furosemide and spironolactone --No need for potassium supplement as he is on a high dose of spironolactone at 100 mg twice a day Students noted discussed and edited as deemed necessary. 08/14 Infective Endocarditis -Severe aortic regurgitation/aortic insufficiency and EF of 40% -No findings of splinter hemorrhages, janeway lesions, or osler nodes on physical exam. -Revised Cardiac Index score of 3 demonstrates Class IV Risk with 15% risk of mortality--not a good surgical candidate -Cardiology report reviewed--state pt may need AVR but poor candidate due to alcoholic cirrhosis -Cardiovascular report reviewed--states pt is not a surgical candidate; recommends medical management-will most likely not be a surgical candidate for TAVR in the future -Blood cultures positive for staphylococcus sciuri on 08/09 -Repeat blood cultures on 08/11 currently show no growth to date -PICC line should be placed today -Can continue cephazolin for 4-6 weeks CXR showed worsening CHF -BNP increased to 2578.3 -Increased lasix to 40 mg BID -Urine output is currently +75mL -Will do strict urine output monitoring Alcoholic Cirrhosis -MELD score of 26 points today for our pt with a decreased total bilirubin of 6.3; mortality at 30 days ranges from 6% (MELD score <8) to greater than 50% (MELD score >20) when assessing for surgical risk -MELD scores >10 qualify for liver transplantation; pt states he has been sober for 7 months now so he may be a candidate -GI following -Ordered lactulose PRN Hyponatremia-due to cirrhosis -seems to be his baseline according to past records- -his mentation at baseline with no sign of confusion -Caution with salt supplements; currently on NaCl -sodium at 134 today Hypokalemia: Potassium within normal range -On furosemide and spironolactone --No need for potassium supplement as he is on a high dose of spironolactone at 100 mg twice a day Plan reviewed. I appreciate her tremendous help. Will do the PICC line and strict in and output we will initiate to the 6 weeks course of antibiotic starting after the PICC line placement. Once the antibiotic course is completed he needs a repeat echo to assess the aortic valve endocarditis at that time. So evaluated the EF which is 40% currently and hopefully it will improve after the antibiotic course. 08/15 Infective Endocarditis -Severe aortic regurgitation/aortic insufficiency and EF of 40% -PICC line placed--pt will continue cephazolin for 6 wks - stop date -GI report reviewed--pt not a candidate for liver transplant at this time due to infective endocarditis. That can be considered down the road after the antibiotic course completed and patient is stable have decompensated liver function. -Will need repeat stool culture in the future due to antibiotic use if diarrhea persists; will be discontinuing lactulose and replacing with Citrucel tablet for stool bulking -Cardiology report reviewed--medical management unlikely to improve CHF--palliative consult ordered. Care plan discussed with the student. Reviewed the care with her today. Patient seen and examined individually.
[2020-08-15] MEDS: Melatonin 3 MG TAB PO SCH (21:31)
[2020-08-16] MEDS: Acetaminophen 325 MG TAB PO PRN (03:30)
[2020-08-16] MEDS: CEFAZOLIN 2 GM in Premix Bag 1 BAG IVPB SCH ×3 (04:59→20:36)
[2020-08-16] MEDS: Furosemide 40 MG/4 ML VIAL SLOW IVP SCH (04:59)
[2020-08-16 05:30] LABS: Anion Gap 10 mmol/L (10-20); BUN (Urea Nitrogen) 6 mg/dL (8.4-25.7); Calc. Creatinine Clearance 182 mL/min (70-130); Carbon Dioxide 26 mmol/L (22-29); Chloride 97 mmol/L (98-107); Estimated GFR-MDRD Greater than 90; Glucose 119 mg/dL (70-105); Potassium 3.5 mmol/L (3.5-5.1); Sodium 129 mmol/L (136-145)
[2020-08-16] MEDS: glipiZIDE 5 MG TAB PO SCH (08:36)
[2020-08-16] MEDS: Ferrous Sulfate 325 MG TAB PO SCH (08:36)
[2020-08-16] MEDS: Gabapentin 300 MG CAP PO SCH (08:37)
[2020-08-16] MEDS: Citrucel 500 MG TAB PO SCH (08:37)
[2020-08-16] MEDS: Multivit, Chewable SF 1 TAB PO SCH (08:37)
[2020-08-16] MEDS: Bupropion 150 MG XL TAB PO SCH (08:37)
[2020-08-16] MEDS: Escitalopram Oxalate 20 mg Tablet PO SCH (08:37)
[2020-08-16] MEDS: Sodium Chloride 1 GM TAB PO SCH ×2 (08:38→20:36)
[2020-08-16] MEDS: Spironolactone 100 MG TAB PO SCH (09:13)
[2020-08-16] MEDS: Nadolol 40 MG TAB PO SCH (09:13)
--- NOTE | 2020-08-16 10:30 | PDOC.HOSPP ---
- Subjective Encounter Date: 08/16/20 Encounter Time: 08:50 Subjective: Pt in bed and appears in no acute distress. He states he's been a little lightheaded today and had a headache. He's had one episode of diarrhea. SOB is only on exertion. He is on the low air normotensive. Sodium at 129. - Objective Vital Signs & Weight: Vital Signs (12 hours) Temp Pulse Resp BP BP Pulse Ox 08/16/20 07:35 97.7 F 80 19 98/49 L 97 08/16/20 05:23 96 08/16/20 03:33 99.7 F H 89 16 107/53 L 96 08/16/20 00:40 99.6 F 92 18 108/57 L 92 L Weight Admit Weight 210 lb 5 oz Weight 211 lb 8 oz I&O: 08/15/20 08/16/20 08/17/20 06:59 06:59 06:59 Intake Total 1510 1110 Output Total 2700 450 Balance -1190 660 Result Diagrams: 08/14/20 03:57 08/16/20 04:35 Additional Labs: Accuchecks 08/16/20 08/15/20 08/15/20 05:49 20:11 16:51 POC Glucose 97 79 81 08/15/20 08/15/20 10:53 06:03 POC Glucose 183 H 145 H Hospitalist ROS - Medication Medications: Active Medications Generic Name Dose Route Start Last Admin Trade Name Freq PRN Reason Stop Dose Admin Acetaminophen 650 mg 08/10/20 10:40 08/16/20 03:30 Acetaminophen 325 Mg Tab PO 650 mg Q4H PRN Administration Headache/Fever/Mild Pain (1-3) Bupropion HCl 150 mg 08/11/20 09:00 08/16/20 08:37 Bupropion 150 Mg Xl Tab PO 150 mg DAILY HARPREET Administration Escitalopram Oxalate 20 mg 08/11/20 09:00 08/16/20 08:37 Escitalopram Oxalate 20 Mg Tablet PO 20 mg DAILY HARPREET Administration Ferrous Sulfate 325 mg 08/11/20 08:00 08/16/20 08:36 Ferrous Sulfate 325 Mg Tab PO 325 mg QAM-WM HARPREET Administration Gabapentin 300 mg 08/11/20 09:00 08/16/20 08:37 Gabapentin 300 Mg Cap PO 300 mg DAILY HARPREET Administration Glipizide 5 mg 08/11/20 07:30 08/16/20 08:36 Glipizide 5 Mg Tab PO 5 mg DAILY-AC HARPREET Administration Cefazolin Sodium/Dextrose 2 gm 50 mls @ 100 mls/hr 08/10/20 22:00 08/16/20 04:59 / Device IVPB 50 mls Q8HR HARPREET Administration Insulin Human Lispro 0 units 08/10/20 14:50 08/13/20 11:51 Humalog 300 Units/3 Ml Vial SC 2 unit .MILD SLIDING SCALE PRN Administration Mild Correctional Scale Insulin Human Lispro 0 units 08/10/20 14:50 08/12/20 23:13 Humalog 300 Units/3 Ml Vial SC 2 unit .BEDTIME SLIDING SC PRN Administration Bedtime Correctional Scale Melatonin 6 mg 08/11/20 21:00 08/15/20 21:31 Melatonin 3 Mg Tab PO 6 mg HS HARPREET Administration Methylcellulose 500 mg 08/16/20 09:00 08/16/20 08:37 Citrucel 500 Mg Tab PO 500 mg DAILY HARPREET Administration Multivitamins 1 tab 08/11/20 09:00 08/16/20 08:37 Multivit, Chewable Sf 1 Tab PO 1 tab DAILY HARPREET Administration Sodium Chloride 1 gm 08/12/20 09:00 08/16/20 08:38 Sodium Chloride 1 Gm Tab PO 1 gm BID HARPREET Administration Sodium Chloride 10 ml 08/12/20 09:00 08/16/20 08:38 Flush - Normal Saline 10 Ml Syringe IVF 10 ml Q12HR HARPREET Administration Tramadol HCl 50 mg 08/10/20 19:56 08/12/20 23:06 Tramadol Hcl 50 Mg Tab PO 50 mg Q4H PRN Administration Pain 4-6 - Exam General Appearance: NAD, awake alert Eye: PERRL, scleral icterus Heart: RRR, no gallops, no rubs, normal peripheral pulses, murmur present Respiratory: CTAB, no wheezes, no rales, no ronchi, normal chest expansion, no tachypnea Gastrointestinal: soft, non-tender, non-distended, normal bowel sounds, no palpable masses, no hepatomegaly, no splenomegaly, no bruit Skin - other findings: jaundice Psychiatric: normal affect, normal behavior, A&O x 3 Hosp A/P - Plan Fall with the back pain Worsening anasarca and a new pleural effusion Probable nonischemic cardiomyopathy per EF of 40% Aortic valve infective endocarditis Left ventricle dilated Tatian Gram-positive cocci bacteremia Pulmonary hypertension -On cefazolin 2 g IV every 8 hours. -No splinter hemorrhages or Janeway lesions noted. -Repeating the blood cultures. If it remains negative for [address] PICC line- Abnormal troponin due to metabolic mismatch type II demand ischemia. Alcoholic cirrhosis -Patient on nadolol at home will continue the same. -On Lasix as well as spironolactone. -He may need lactulose down the road. The at this point he is looks stable and he is not on home regimen of lactulose Type 2 diabetes mellitus -Patient on Metformin and glipizide. -His creatinine in the normal range we will continue the home regimen along with sliding scale insulin. Full code 08/12 Infective Endocarditis Patient has severe aortic regurgitation and EF of 40%.--- -Patient has been afebrile and BP stable. Physical exam is negative for splinter hemorrhages, janeway lesions, or osler nodes. Murmur is present. -Blood cultures positive for staphylococcus sciuri on 08/09 -Repeat blood cultures on 08/11 currently show no growth to date; if no growth by tomorrow , PICC line may be placed -Currently on cephazolin--probably for 4 to 6 weeks duration if repeat culture is negative. Hypokalemia- currently on furosemide and spironolactone -Replace Hyponatremia- seems to be his baseline according to past records -currently on NaCl -Caution with the salt supplement -Lumbar Spine MRI was limited due to pt. movement but showed lumbar spine degenerative changes. -PT consult to help mobilize pt 08/13 Infective Endocarditis -Severe aortic regurgitation/aortic insufficiency and EF of 40% - no findings of splinter hemorrhages, janeway lesions, or osler nodes on physical exam. -This is a high risk surgery on a patient with several comorbidities that would not be conducive for surgery - Symptomatic nonischemic cardiomyopathy with a EF of 40 -Gentle IV diuresis --Patient had a severe episode of SOB last night and CXR showed worsening CHF. -Blood cultures positive for staphylococcus sciuri on 08/09 -Repeat blood cultures on 08/11 currently show no growth to date--PICC line may be placed -Can continue cephazolin for 4-6 weeks ---Cardiology report reviewed--state pt may need AVR but poor candidate due to alcoholic cirrhosis Alcoholic Cirrhosis -MELD score of 28 points for our pt; mortality at 30 days ranges from 6% (MELD score <8) to greater than 50% (MELD score >20) when assessing for surgical risk -GI consulted for their input in the context of cirrhosis and evaluation for possible AVR - cardiovascular consult -I talked to Dr. Roland yesterday evening and he is aware of this patient Hyponatremia-due to cirrhosis -seems to be his baseline according to past records- -his mentation at baseline with no sign of confusion -Caution with salt supplements; currently on NaCl -sodium at 132 today Hypokalemia: Potassium within normal range -On furosemide and spironolactone --No need for potassium supplement as he is on a high dose of spironolactone at 100 mg twice a day Students noted discussed and edited as deemed necessary. 08/14 Infective Endocarditis -Severe aortic regurgitation/aortic insufficiency and EF of 40% -No findings of splinter hemorrhages, janeway lesions, or osler nodes on physical exam. -Revised Cardiac Index score of 3 demonstrates Class IV Risk with 15% risk of mortality--not a good surgical candidate -Cardiology report reviewed--state pt may need AVR but poor candidate due to alcoholic cirrhosis -Cardiovascular report reviewed--states pt is not a surgical candidate; recommends medical management-will most likely not be a surgical candidate for TAVR in the future -Blood cultures positive for staphylococcus sciuri on 08/09 -Repeat blood cultures on 08/11 currently show no growth to date -PICC line should be placed today -Can continue cephazolin for 4-6 weeks CXR showed worsening CHF -BNP increased to 2578.3 -Increased lasix to 40 mg BID -Urine output is currently +75mL -Will do strict urine output monitoring Alcoholic Cirrhosis -MELD score of 26 points today for our pt with a decreased total bilirubin of 6.3; mortality at 30 days ranges from 6% (MELD score <8) to greater than 50% (MELD score >20) when assessing for surgical risk -MELD scores >10 qualify for liver transplantation; pt states he has been sober for 7 months now so he may be a candidate -GI following -Ordered lactulose PRN Hyponatremia-due to cirrhosis -seems to be his baseline according to past records- -his mentation at baseline with no sign of confusion -Caution with salt supplements; currently on NaCl -sodium at 134 today Hypokalemia: Potassium within normal range -On furosemide and spironolactone --No need for potassium supplement as he is on a high dose of spironolactone at 100 mg twice a day Plan reviewed. I appreciate her tremendous help. Will do the PICC line and strict in and output we will initiate to the 6 weeks course of antibiotic starting after the PICC line placement. Once the antibiotic course is completed he needs a repeat echo to assess the aortic valve endocarditis at that time. So evaluated the EF which is 40% currently and hopefully it will improve after the antibiotic course. 08/15 Infective Endocarditis -Severe aortic regurgitation/aortic insufficiency and EF of 40% -PICC line placed--pt will continue cephazolin for 6 wks - stop date -GI report reviewed--pt not a candidate for liver transplant at this time due to infective endocarditis. That can be considered down the road after the antibiotic course completed and patient is stable have decompensated liver function. -Will need repeat stool culture in the future due to antibiotic use if diarrhea persists; will be discontinuing lactulose and replacing with Citrucel tablet for stool bulking -Cardiology report reviewed--medical management unlikely to improve CHF--palliative consult ordered. Care plan discussed with the student. Reviewed the care with her today. Patient seen and examined individually. 08/16 Infective Endocarditis -Severe aortic regurgitation/aortic insufficiency and EF of 40%------> medical management only -He is not a strong surgical candidate given his comorbidities. -PICC line placed--pt will continue cephazolin for 6 wks - stop date Hyponatremia and Low BP -Furosemide decreased to 20mg IV twice daily and spironolactone to 50 mg daily. Placed case management manager consulted to look for placement that will allow his IV antibiotic infusion versus home health IV nursing. Palliative consult placed. He is currently full code.
[2020-08-16] MEDS ORDERED: Furosemide 20 MG/2 ML VIAL SLOW IVP SCH ×2 (10:45→22:45)
[2020-08-16] MEDS: Furosemide 20 MG/2 ML VIAL SLOW IVP SCH (11:42)
--- NOTE | 2020-08-16 18:14 | PRG ---
DATE OF SERVICE: 08/16/2020 SUBJECTIVE: The patient has had some loose stool intermittently. At rest, he feels comfortable and minor symptoms otherwise such as mild headaches and dyspnea on exertion. Voiding without difficulty. OBJECTIVE: VITAL SIGNS: T-max 100 yesterday, now he is temperature 99.6, blood pressure 111/54, heart rate 88. GENERAL: Appears in no distress. HEENT: Icterus noted. HEART: S1 and S2. Regular rate with a murmur at the apex. LUNGS: Symmetric air entry. No crackles or wheezing. ABDOMEN: Soft, not distended or tender. No ascites. EXTREMITIES: 1+ edema in lower extremities. LABORATORY DATA: White cell count 4.5, hemoglobin 8, platelets 83 with 42% neutrophils. Creatinine 0.65. Urinalysis normal. Microbiology with Staphylococcus identified as Staphylococcus sciuri, which is the one that was isolated at the end of July. Repeat blood culture, no growth in 5 days. Had a C difficile test done on the , which was negative. ASSESSMENT AND DISCUSSION: Cirrhosis due to alcoholism, type 2 diabetes associated with chronic pancreatitis, multiple episodes of bacteremia and now with Staphylococcus sciuri bacteremia with aortic valve endocarditis, who is on cefazolin to be continued for a total of 6 weeks. Due to severe aortic insufficiency. Cardiovascular Surgery has been consulted. Dr. Roland felt it was unacceptable surgical risk, so he is going to be treated medically, but he has severe aortic valve endocarditis with insufficiency and therefore he is not going to be a candidate for TAVR either. Prognosis is poor. Job ID: [id number] [facility]
[2020-08-16] MEDS: Melatonin 3 MG TAB PO SCH (20:36)
[2020-08-17 04:40] LABS: Anion Gap 10 mmol/L (10-20); BUN (Urea Nitrogen) 6 mg/dL (8.4-25.7); Calc. Creatinine Clearance 201 mL/min (70-130); Calcium 7.9 mg/dL (7.8-10.44); Carbon Dioxide 26 mmol/L (22-29); Chloride 98 mmol/L (98-107); Estimated GFR-MDRD Greater than 90; Glucose 113 mg/dL (70-105); Potassium 3.5 mmol/L (3.5-5.1); Sodium 130 mmol/L (136-145)
[2020-08-17] MEDS: CEFAZOLIN 2 GM in Premix Bag 1 BAG IVPB SCH ×3 (05:42→21:24)
[2020-08-17] MEDS: Furosemide 20 MG/2 ML VIAL SLOW IVP SCH ×2 (05:43→15:11)
[2020-08-17] MEDS: Propranolol 10 MG TAB PO SCH (08:42)
[2020-08-17] MEDS: glipiZIDE 5 MG TAB PO SCH (08:42)
[2020-08-17] MEDS: Sodium Chloride 1 GM TAB PO SCH ×2 (08:42→21:24)
[2020-08-17] MEDS: Ferrous Sulfate 325 MG TAB PO SCH (08:42)
[2020-08-17] MEDS: Gabapentin 300 MG CAP PO SCH (08:42)
[2020-08-17] MEDS: Bupropion 150 MG XL TAB PO SCH (08:42)
[2020-08-17] MEDS: Citrucel 500 MG TAB PO SCH (08:43)
[2020-08-17] MEDS: Escitalopram Oxalate 20 mg Tablet PO SCH (08:43)
[2020-08-17] MEDS: Spironolactone 100 MG TAB PO SCH (08:43)
[2020-08-17] MEDS: Multivit, Chewable SF 1 TAB PO SCH (08:43)
--- NOTE | 2020-08-17 12:32 | PDOC.HOSPP ---
- Subjective Encounter Date: 08/17/20 Encounter Time: 09:50 Subjective: Doing well he has no acute complaints. his sats good. His sodium seems to be improved. I talked to his sister explained the whole care plan and the potential of not able to go to the detention facility or rehab due to lack of insurance. I also talked to the infectious disease doctor and possibly daptomycin can once daily can be done but it is quite expensive. - Objective Vital Signs & Weight: Vital Signs (12 hours) Temp Pulse Pulse Pulse Resp BP BP 08/17/20 11:25 98.3 F 70 21 H 08/17/20 09:09 86 85 113/54 L 116/56 L 08/17/20 08:00 97.6 F 85 18 08/17/20 04:00 98.1 F 81 29 H BP Pulse Ox Pulse Ox Pulse Ox 08/17/20 11:25 101/55 L 92 L 08/17/20 09:09 95 96 08/17/20 08:00 103/51 L 92 L 08/17/20 04:00 108/53 L 98 Weight Admit Weight 210 lb 5 oz Weight 210 lb I&O: 08/16/20 08/17/20 08/18/20 06:59 06:59 06:59 Intake Total 1110 960 Output Total 450 3635 Balance 660 -0087 Result Diagrams: 08/14/20 03:57 08/17/20 03:57 Additional Labs: Accuchecks 08/17/20 08/16/20 08/16/20 05:37 20:43 16:38 POC Glucose 88 70 104 H 08/16/20 11:44 POC Glucose 92 Hospitalist ROS - Medication Medications: Active Medications Generic Name Dose Route Start Last Admin Trade Name Freq PRN Reason Stop Dose Admin Acetaminophen 650 mg 08/10/20 10:40 08/16/20 03:30 Acetaminophen 325 Mg Tab PO 650 mg Q4H PRN Administration Headache/Fever/Mild Pain (1-3) Bupropion HCl 150 mg 08/11/20 09:00 08/17/20 08:42 Bupropion 150 Mg Xl Tab PO 150 mg DAILY HARPREET Administration Escitalopram Oxalate 20 mg 08/11/20 09:00 08/17/20 08:43 Escitalopram Oxalate 20 Mg Tablet PO 20 mg DAILY HARPREET Administration Ferrous Sulfate 325 mg 08/11/20 08:00 08/17/20 08:42 Ferrous Sulfate 325 Mg Tab PO 325 mg QAM-WM HARPREET Administration Furosemide 20 mg 08/16/20 14:00 08/17/20 05:43 Furosemide 20 Mg/2 Ml Vial SLOW IVP 20 mg 0600,1400 HARPREET Administration Gabapentin 300 mg 08/11/20 09:00 08/17/20 08:42 Gabapentin 300 Mg Cap PO 300 mg DAILY HARPREET Administration Glipizide 5 mg 08/11/20 07:30 08/17/20 08:42 Glipizide 5 Mg Tab PO 5 mg DAILY-AC HARPREET Administration Cefazolin Sodium/Dextrose 2 gm 50 mls @ 100 mls/hr 08/10/20 22:00 08/17/20 05:42 / Device IVPB 50 mls Q8HR HARPREET Administration Insulin Human Lispro 0 units 08/10/20 14:50 08/13/20 11:51 Humalog 300 Units/3 Ml Vial SC 2 unit .MILD SLIDING SCALE PRN Administration Mild Correctional Scale Insulin Human Lispro 0 units 08/10/20 14:50 08/12/20 23:13 Humalog 300 Units/3 Ml Vial SC 2 unit .BEDTIME SLIDING SC PRN Administration Bedtime Correctional Scale Melatonin 6 mg 08/11/20 21:00 08/16/20 20:36 Melatonin 3 Mg Tab PO 6 mg HS HARPREET Administration Methylcellulose 500 mg 08/16/20 09:00 08/17/20 08:43 Citrucel 500 Mg Tab PO 500 mg DAILY HARPREET Administration Multivitamins 1 tab 08/11/20 09:00 08/17/20 08:43 Multivit, Chewable Sf 1 Tab PO 1 tab DAILY HARPREET Administration Propranolol HCl 10 mg 08/17/20 09:00 08/17/20 08:42 Propranolol 10 Mg Tab PO 10 mg DAILY HARPREET Administration Sodium Chloride 1 gm 08/12/20 09:00 08/17/20 08:42 Sodium Chloride 1 Gm Tab PO 1 gm BID HARPREET Administration Sodium Chloride 10 ml 08/12/20 09:00 08/17/20 08:44 Flush - Normal Saline 10 Ml Syringe IVF 10 ml Q12HR HARPREET Administration Spironolactone 50 mg 08/17/20 09:00 08/17/20 08:43 Spironolactone 100 Mg Tab PO 50 mg DAILY HARPREET Administration Tramadol HCl 50 mg 08/10/20 19:56 08/12/20 23:06 Tramadol Hcl 50 Mg Tab PO 50 mg Q4H PRN Administration Pain 4-6 - Exam General Appearance: NAD, awake alert Eye: PERRL ENT: normocephalic atraumatic Neck: supple Heart: RRR Respiratory: CTAB, normal chest expansion Gastrointestinal: distended Neurological: no focal deficits Psychiatric: A&O x 3 Hosp A/P - Plan Fall with the back pain Worsening anasarca and a new pleural effusion Probable nonischemic cardiomyopathy per EF of 40% Aortic valve infective endocarditis Left ventricle dilated Tatian Gram-positive cocci bacteremia Pulmonary hypertension -On cefazolin 2 g IV every 8 hours. -No splinter hemorrhages or Janeway lesions noted. -Repeating the blood cultures. If it remains negative for [address] PICC line- Abnormal troponin due to metabolic mismatch type II demand ischemia. Alcoholic cirrhosis -Patient on nadolol at home will continue the same. -On Lasix as well as spironolactone. -He may need lactulose down the road. The at this point he is looks stable and he is not on home regimen of lactulose Type 2 diabetes mellitus -Patient on Metformin and glipizide. -His creatinine in the normal range we will continue the home regimen along with sliding scale insulin. Full code Infective Endocarditis -Severe aortic regurgitation/aortic insufficiency and EF of 40% -PICC line placed--pt will continue cephazolin for 6 wks - stop date -GI report reviewed--pt not a candidate for liver transplant at this time due to infective endocarditis. That can be considered down the road after the antibiotic course completed and patient is stable have decompensated liver function. -Will need repeat stool culture in the future due to antibiotic use if diarrhea persists; will be discontinuing lactulose and replacing with Citrucel tablet for stool bulking -Cardiology report reviewed--medical management unlikely to improve CHF --palliative consult ordered. Care plan discussed with the student. Reviewed the care with her today. Patient seen and examined individually. I talked to his sister explained the whole care plan and the potential of not able to go to the detention facility or rehab due to lack of insurance. I also talked to the infectious disease doctor and possibly daptomycin once daily can be done but it is quite expensive. Lack of insurance limits the choices of placement. I talked to the sister today and he explained the duration of the antibiotic that he needs as well as overall his long-term prognosis. We can decide on Wednesday with the ed case manager whether we can arrange for home IV infusion of once a day with the daptomycin versus continued stay here for 5 more weeks to complete to the IV antibiotic course with the cefazolin 3 times a day.
--- NOTE | 2020-08-17 15:07 | EKG ---
Test Reason : Blood Pressure : / mmHG Vent. Rate : 094 BPM Atrial Rate : 094 BPM P-R Int : 176 ms QRS Dur : 122 ms QT Int : 450 ms P-R-T Axes : 056 002 071 degrees QTc Int : 562 ms Normal sinus rhythm Non-specific intra-ventricular conduction delay Nonspecific ST and T wave abnormality Abnormal ECG Confirmed by ROHIT ROSEN ([id number]), editor school photograph NORBERTO SAAB ([id number]) on 08/17/2020 3:07:22 PM Referred By: Confirmed By:ROHIT ROSEN
[2020-08-17] MEDS: Melatonin 3 MG TAB PO SCH (21:24)
[2020-08-17] MEDS: Acetaminophen 325 MG TAB PO PRN (23:14)
[2020-08-18] MEDS: CEFAZOLIN 2 GM in Premix Bag 1 BAG IVPB SCH ×3 (05:13→20:58)
[2020-08-18] MEDS: Propranolol 10 MG TAB PO SCH (08:07)
[2020-08-18] MEDS: Spironolactone 100 MG TAB PO SCH (08:07)
[2020-08-18] MEDS: Gabapentin 300 MG CAP PO SCH (08:07)
[2020-08-18] MEDS: Citrucel 500 MG TAB PO SCH (08:07)
[2020-08-18] MEDS: Sodium Chloride 1 GM TAB PO SCH ×2 (08:07→20:20)
[2020-08-18] MEDS: Escitalopram Oxalate 20 mg Tablet PO SCH (08:08)
[2020-08-18] MEDS: glipiZIDE 5 MG TAB PO SCH (08:08)
[2020-08-18] MEDS: Ferrous Sulfate 325 MG TAB PO SCH (08:08)
[2020-08-18] MEDS: Multivit, Chewable SF 1 TAB PO SCH (08:08)
[2020-08-18] MEDS: Acetaminophen 325 MG TAB PO PRN (08:09)
[2020-08-18] MEDS: Bupropion 150 MG XL TAB PO SCH (08:11)
[2020-08-18 10:13] LABS: Actual Bicarbonate (HCO3a) 25.8 mEq/L (22-28); Base Excess (BEa) 2.7 mEq/L (-2.0 to +3.0); CO2 Tension 33.8 mmHg (35.0-45.0); Calcium, Ionized (arterial) 1.12 mmol/L (1.12-1.30); Carboxyhemoglobin (COHb) 0.7 gm% (0.0-3.0); Hemoglobin (Hb) 9.1 g/dL (14.0-18.0); Potassium - ABG Lab 3.32 mmol/L (3.70-5.30)
[2020-08-18 10:25] LABS: O2 Tension (PaO2), arterial 56.3 mmHg (80.0-100.0); Puncture Site RRA
[2020-08-18] MEDS ORDERED: Spironolactone 100 MG TAB PO SCH ×2 (10:39→11:00)
--- NOTE | 2020-08-18 11:12 | PDOC.HOSPP ---
- Subjective Encounter Date: 08/18/20 Encounter Time: 10:30 Subjective: Patient has visible breathing distress. He is breathing is labored. He is alert oriented. He is slowly declining in his functional status and appears quite malnourished and icteric. Stat blood gas shows severe hypoxia and his pH is 7.5. He is on 5 L oxygen. He is satting only at 94%. He is normotensive. - Objective Vital Signs & Weight: Vital Signs (12 hours) Temp Pulse Resp BP Pulse Ox 08/18/20 10:20 75 16 08/18/20 08:00 94 L 08/18/20 07:55 96.9 F L 75 18 114/53 L 93 L 08/18/20 03:16 98.3 F 78 18 96/54 L 98 Weight Admit Weight 210 lb 5 oz Weight 210 lb 1.6 oz I&O: 08/17/20 08/18/20 08/19/20 06:59 06:59 06:59 Intake Total 960 1040 Output Total 0233 [facility] [place] Balance -2675 -960 Result Diagrams: 08/14/20 03:57 08/17/20 03:57 Additional Labs: Accuchecks 08/18/20 08/17/20 08/17/20 05:12 21:44 16:09 POC Glucose 108 H 114 H 107 H Hospitalist ROS - Medication Medications: Active Medications Generic Name Dose Route Start Last Admin Trade Name Freq PRN Reason Stop Dose Admin Acetaminophen 650 mg 08/10/20 10:40 08/18/20 08:09 Acetaminophen 325 Mg Tab PO 650 mg Q4H PRN Administration Headache/Fever/Mild Pain (1-3) Albuterol/Ipratropium 3 ml 08/18/20 10:02 08/18/20 10:20 Ipratropium/Albuterol Sulfate 3 Ml Neb NEB 3 ml Q4H PRN Administration SOB Bupropion HCl 150 mg 08/11/20 09:00 08/18/20 08:11 Bupropion 150 Mg Xl Tab PO 150 mg DAILY HARPREET Administration Escitalopram Oxalate 20 mg 08/11/20 09:00 08/18/20 08:08 Escitalopram Oxalate 20 Mg Tablet PO 20 mg DAILY HARPREET Administration Gabapentin 300 mg 08/11/20 09:00 08/18/20 08:07 Gabapentin 300 Mg Cap PO 300 mg DAILY HARPREET Administration Cefazolin Sodium/Dextrose 2 gm 50 mls @ 100 mls/hr 08/10/20 22:00 08/18/20 05:13 / Device IVPB 50 mls Q8HR HARPREET Administration Insulin Human Lispro 0 units 08/10/20 14:50 08/13/20 11:51 Humalog 300 Units/3 Ml Vial SC 2 unit .MILD SLIDING SCALE PRN Administration Mild Correctional Scale Insulin Human Lispro 0 units 08/10/20 14:50 08/12/20 23:13 Humalog 300 Units/3 Ml Vial SC 2 unit .BEDTIME SLIDING SC PRN Administration Bedtime Correctional Scale Melatonin 6 mg 08/11/20 21:00 08/17/20 21:24 Melatonin 3 Mg Tab PO 6 mg HS HARPREET Administration Methylcellulose 500 mg 08/16/20 09:00 08/18/20 08:07 Citrucel 500 Mg Tab PO 500 mg DAILY HARPREET Administration Multivitamins 1 tab 08/11/20 09:00 08/18/20 08:08 Multivit, Chewable Sf 1 Tab PO 1 tab DAILY HARPREET Administration Propranolol HCl 10 mg 08/17/20 09:00 08/18/20 08:07 Propranolol 10 Mg Tab PO 10 mg DAILY HARPREET Administration Sodium Chloride 1 gm 08/12/20 09:00 08/18/20 08:07 Sodium Chloride 1 Gm Tab PO 1 gm BID HARPREET Administration Sodium Chloride 10 ml 08/12/20 09:00 08/18/20 08:08 Flush - Normal Saline 10 Ml Syringe IVF 10 ml Q12HR HARPREET Administration Tramadol HCl 50 mg 08/10/20 19:56 08/12/20 23:06 Tramadol Hcl 50 Mg Tab PO 50 mg Q4H PRN Administration Pain 4-6 - Exam General Appearance: NAD, awake alert Eye: PERRL, scleral icterus ENT: normocephalic atraumatic Neck: supple Heart: RRR Respiratory: rhonchi, tachypneic, wheezes Gastrointestinal: soft, normal bowel sounds Extremities: no edema Neurological: cranial nerve grossly intact, no focal deficits Psychiatric: A&O x 3 Hosp A/P - Plan Fall with the back pain Worsening anasarca and a new pleural effusion Probable nonischemic cardiomyopathy per EF of 40% Aortic valve infective endocarditis Left ventricle dilated Tatian Gram-positive cocci bacteremia Pulmonary hypertension -On cefazolin 2 g IV every 8 hours. -No splinter hemorrhages or Janeway lesions noted. -Repeating the blood cultures. If it remains negative for [address] PICC line- Abnormal troponin due to metabolic mismatch type II demand ischemia. Alcoholic cirrhosis -Patient on propanolol -On Lasix as well as spironolactone.--I reduced to these doses as his blood pressure is slowly trending down. -He may need lactulose down the road. Type 2 diabetes mellitus -Patient on Metformin and glipizide. -His creatinine in the normal range we will continue the home regimen along with sliding scale insulin. Full code Infective Endocarditis -Severe aortic regurgitation/aortic insufficiency and EF of 40% -PICC line placed--pt will continue cephazolin for 6 wks - stop date -GI report reviewed--pt not a candidate for liver transplant at this time due to infective endocarditis. That can be considered down the road after the antibiotic course completed and patient is stable have decompensated liver function. -Will need repeat stool culture in the future due to antibiotic use if diarrhea persists; will be discontinuing lactulose and replacing with Citrucel tablet for stool bulking -Cardiology report reviewed--medical management unlikely to improve CHF--palliative consult ordered. - I talked to his sister explained the whole care plan and the potential of not able to go to the [facility] facility or rehab due to lack of insurance. I also talked to the infectious disease doctor and possibly daptomycin once daily can be done but it is quite expensive. - Lack of insurance limits the choices of placement. I talked to the sister today and he explained the duration of the antibiotic that he needs as well as overall his long-term prognosis. We can decide on Wednesday with the heel caser whether we can arrange for home IV infusion of once a day with the daptomycin versus continued stay here for 5 more weeks to complete to the IV antibiotic course with the cefazolin 3 times a day. 8th Shortness of breath at rest Stat blood gas shows severe hypoxia and his pH is 7.5. He is on 5 L oxygen. He is satting only at 94%. He is normotensive. -Breathing treatments; stat chest x-ray; inflammatory markers -repeat the Covid test -His Covid is negative on August 13. However worsening hypoxia and clinically he does not look good --- so we will repeat the Covid test. I started him on empiric steroid until the test back. He is quite unstable in terms of pulmonary function - he will moved to IMCU and high flow oxygen plus or minus BiPAP as needed to keep the sats above 90%. He is slowly declining in his functional status Palliative consult placed.
--- NOTE | 2020-08-18 11:15 | RAD ---
EXAM: Chest one view: HISTORY: Shortness of breath COMPARISON: 08/13/2020 FINDINGS: Left PICC line. Poor inspiration. Heart size: Borderline enlarged. Lungs: New patchy interstitial and groundglass opacity changes in the left lung raising concern for t he possibility of pneumonia including atypical pneumonia such as Covid 19. Left costophrenic angle blunting possibly small left pleural effusion. IMPRESSION: Evidence for developing patchy parenchymal changes in the left lung possible atypical pneumonia with possible small left pleural effusion.
[2020-08-18] MEDS ORDERED: Albuterol 200 PUFF (6.7GM INHALER) INH PRN (15:28)
[2020-08-18] MEDS: Furosemide 20 MG/2 ML VIAL SLOW IVP SCH (16:23)
[2020-08-18] MEDS: Albuterol 200 PUFF (6.7GM INHALER) INH SCH ×2 (18:43→22:10)
[2020-08-18 19:35] LABS: SARS-CoV-2 MS2 Positive; SARS-CoV-2 N Gene Positive; SARS-CoV-2 S Gene Positive; SARS-CoV-2 by NAA DETECTED (NotDetected); SARS-CoV-2 orf1ab Positive
[2020-08-18] MEDS: Melatonin 3 MG TAB PO SCH (20:20)
[2020-08-18] MEDS: methylPREDNISolone Sod Succ 40 MG VIAL IVP SCH (20:21)
--- NOTE | 2020-08-19 00:32 | CON ---
DATE OF CONSULTATION: 08/18/2020 HISTORY OF PRESENT ILLNESS: Arnoldo Crowley is a very pleasant 50-year-old male who has cirrhosis. He is moved to the intermediate care unit because of hypoxemia. He was able to talk in complete sentences and was in no distress when I saw him. He has staphylococcal endocarditis and is not felt to be currently or ever to be a candidate for valve replacement because of his comorbidities. His sister arrived, and we had a discussion about end-of-life issues, and he informed me that he never wanted to be intubated or resuscitated. He agreed to just take one day at a time. We will continue with IV antibiotics at this point in time. PAST MEDICAL HISTORY: Remarkable for; 1. Cirrhosis. 2. History of Wernicke encephalopathy in the past. 3. Diabetes. 4. History of MRSA bacteremia in the past. 5. History of group B strep bacteremia in the past. 6. History of heavy alcohol use. 7. History of perforated pyloric channel ulcer requiring surgery. 8. History of cellulitis, both lower extremities. SOCIAL HISTORY: He is still smoking and drinking every day. He is not . He does have a daughter. His sister is his power of health care. ALLERGIES: HE HAS ALLERGIES TO PENICILLIN. FAMILY HISTORY: Negative for lung disease in early age. REVIEW OF SYSTEMS: Otherwise negative. PHYSICAL EXAMINATION: VITAL SIGNS: He is afebrile. Heart rate is in the 70s, respiratory rates in the 20s, oximetry is 93. HEENT: Pupils are equal. Sclerae are icteric. Extraocular movements are full. NECK: Supple. LUNGS: Clear with the exception of a few crackles at his left base. HEART: Regular rhythm with distant S1 and S2. ABDOMEN: Soft and nontender. EXTREMITIES: Without clubbing or significant edema. LABORATORY DATA: Yesterday, sodium 130, potassium 3.5, chloride 98, bicarb 26, BUN 6, creatinine 0.59. Last CBC was on the , white count was 4.5, hemoglobin 8, platelets 83,000. Blood gas today, 7.5, CO2 of 33, PO2 of 56. Chest radiograph shows a patchy infiltrate more in his left base than anywhere else. IMPRESSION: Staphylococcal bacteremia secondary to endocarditis with a septic embolus in his lung, most likely and a small reactive pleural effusion. I agree with current antimicrobial therapy under the guidance of Infectious Disease. He has no other issue from a pulmonary standpoint at this point in time. He had a COVID screen done again today, but this is not consistent with COVID given that we have a cause for his illness. In my opinion, I would probably not get too aggressive of diuresing him given that he has underlying renal dysfunction. Should continue with his nebulizer treatments given his smoking history. His steroid dosing probably can be decreased in the next 24 to 48 hours. This was a 70 min consult with greater than 50% of the time spent on the unit with coordination of care. Job ID: [id number] [facility]
[2020-08-19] MEDS: Albuterol 200 PUFF (6.7GM INHALER) INH SCH ×6 (03:20→22:14)
[2020-08-19] MEDS: CEFAZOLIN 2 GM in Premix Bag 1 BAG IVPB SCH ×3 (06:07→22:51)
[2020-08-19] MEDS: Furosemide 20 MG/2 ML VIAL SLOW IVP SCH ×2 (06:35→14:24)
[2020-08-19] MEDS: HumaLOG 300 UNITS/3 ML VIAL SC PRN ×3 (06:36→18:15)
[2020-08-19] MEDS: Acetaminophen 325 MG TAB PO PRN (06:54)
--- NOTE | 2020-08-19 07:43 | PDOC.HOSPP ---
- Subjective Encounter Date: 08/19/20 Encounter Time: 07:32 Subjective: minimal sob with mild exertiom. no fever , chills - Objective Vital Signs & Weight: Vital Signs (12 hours) Temp Pulse Ox 08/19/20 00:00 98.1 F 08/18/20 20:00 98.1 F 94 L Weight Admit Weight 210 lb 5 oz Weight 210 lb 1.6 oz Most Recent Monitor Data Heart Rate from ECG 88 NIBP 90/56 NIBP BP-Mean 67 Respiration from ECG 24 SpO2 100 I&O: 08/18/20 08/19/20 08/20/20 06:59 06:59 06:59 Intake Total 1040 400 Output Total 2000 600 Balance -960 -200 Result Diagrams: 08/14/20 03:57 08/17/20 03:57 Additional Labs: Accuchecks 08/19/20 08/19/20 08/18/20 06:14 01:38 20:23 POC Glucose 207 H 112 H 111 H 08/18/20 08/18/20 16:43 11:40 POC Glucose 99 128 H Hospitalist ROS - Medication Medications: Active Medications Generic Name Dose Route Start Last Admin Trade Name Freq PRN Reason Stop Dose Admin Acetaminophen 650 mg 08/10/20 10:40 08/19/20 06:54 Acetaminophen 325 Mg Tab PO 650 mg Q4H PRN Administration Headache/Fever/Mild Pain (1-3) Albuterol Sulfate 2 puff 08/18/20 18:30 08/19/20 06:44 Albuterol 200 Puff (6.7gm Inhaler) INH 2 puff [id number] HARPREET Administration Albuterol/Ipratropium 3 ml 08/18/20 19:00 08/19/20 07:16 Ipratropium/Albuterol Sulfate 3 Ml Neb NEB Not Given [id number] HARPREET Bupropion HCl 150 mg 08/11/20 09:00 08/18/20 08:11 Bupropion 150 Mg Xl Tab PO 150 mg DAILY HARPREET Administration Escitalopram Oxalate 20 mg 08/11/20 09:00 08/18/20 08:08 Escitalopram Oxalate 20 Mg Tablet PO 20 mg DAILY HARPREET Administration Furosemide 20 mg 08/18/20 14:00 08/19/20 06:35 Furosemide 20 Mg/2 Ml Vial SLOW IVP 20 mg 0600,1400 HARPREET Administration Gabapentin 300 mg 08/11/20 09:00 08/18/20 08:07 Gabapentin 300 Mg Cap PO 300 mg DAILY HARPREET Administration Cefazolin Sodium/Dextrose 2 gm 50 mls @ 100 mls/hr 08/10/20 22:00 08/19/20 06:07 / Device IVPB 50 mls Q8HR HARPREET Administration Insulin Human Lispro 0 units 08/10/20 14:50 08/19/20 06:36 Humalog 300 Units/3 Ml Vial SC 3 unit .MILD SLIDING SCALE PRN Administration Mild Correctional Scale Insulin Human Lispro 0 units 08/10/20 14:50 08/12/20 23:13 Humalog 300 Units/3 Ml Vial SC 2 unit .BEDTIME SLIDING SC PRN Administration Bedtime Correctional Scale Melatonin 6 mg 08/11/20 21:00 08/18/20 20:20 Melatonin 3 Mg Tab PO 6 mg HS HARPREET Administration Methylcellulose 500 mg 08/16/20 09:00 08/18/20 08:07 Citrucel 500 Mg Tab PO 500 mg DAILY HARPREET Administration Methylprednisolone Sodium Succinate 40 mg 08/18/20 21:00 08/18/20 20:21 Methylprednisolone Sod Succ 40 Mg Vial IVP 40 mg BID HARPREET Administration Multivitamins 1 tab 08/11/20 09:00 08/18/20 08:08 Multivit, Chewable Sf 1 Tab PO 1 tab DAILY HARPREET Administration Propranolol HCl 10 mg 08/17/20 09:00 08/18/20 08:07 Propranolol 10 Mg Tab PO 10 mg DAILY HARPREET Administration Sodium Chloride 1 gm 08/12/20 09:00 08/18/20 20:20 Sodium Chloride 1 Gm Tab PO 1 gm BID HARPREET Administration Sodium Chloride 10 ml 08/12/20 09:00 08/18/20 20:21 Flush - Normal Saline 10 Ml Syringe IVF 10 ml Q12HR HARPREET Administration Sodium Chloride 10 ml 08/12/20 09:00 08/19/20 06:09 Flush - Normal Saline 10 Ml Syringe IVF 10 ml PRN PRN Administration Saline Flush Tramadol HCl 50 mg 08/10/20 19:56 08/12/20 23:06 Tramadol Hcl 50 Mg Tab PO 50 mg Q4H PRN Administration Pain 4-6 - Exam General Appearance: awake alert Eye: scleral icterus Neck: no JVD Heart: RRR, murmur present Respiratory: CTAB Gastrointestinal: soft, non-tender, normal bowel sounds Extremities: 1+ LE edema Hosp A/P (1) 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 Code(s): I33.0 - ACUTE AND SUBACUTE INFECTIVE ENDOCARDITIS; B95.8 - UNSP STAPHYLOCOCCUS THE CAUSE OF DISEASES CLASSD [id number] Status: Acute (2) Aortic valve insufficiency due to infection Code(s): I35.1 - NONRHEUMATIC AORTIC (VALVE) INSUFFICIENCY Status: Acute (3) Cirrhosis of liver Code(s): K74.60 - UNSPECIFIED CIRRHOSIS OF LIVER Status: Chronic Qualifiers: Hepatic cirrhosis type: alcoholic cirrhosis Ascites presence: unspecified Qualified Code(s): K70.30 - Alcoholic cirrhosis of liver without ascites (4) Bacteremia due to Gram-positive bacteria Code(s): R78.81 - BACTEREMIA Status: Acute (5) Coagulopathy Status: Chronic (6) DM type 2 (diabetes mellitus, type 2) Status: Chronic Qualifiers: Diabetes mellitus manager intermediate insulin use: without intermediate use Diabetes mellitus complication status: without complication Qualified Code(s): E11.9 - Type 2 diabetes mellitus without complications (7) Hypertension Code(s): I10 - ESSENTIAL (PRIMARY) HYPERTENSION Status: Chronic Qualifiers: Hypertension type: essential hypertension Qualified Code(s): I10 - Essential (primary) hypertension (8) COVID-19 Code(s): U07.1 - COVID-19 Status: Acute - Plan cont iv antibx cont accu/ss/etc discuss with admissions representative, ID, etc cont airborne isolation cont O2 supplementation
[2020-08-19] MEDS: Sodium Chloride 1 GM TAB PO SCH ×2 (08:44→22:13)
[2020-08-19] MEDS: Citrucel 500 MG TAB PO SCH (08:44)
[2020-08-19] MEDS: Propranolol 10 MG TAB PO SCH (08:44)
[2020-08-19] MEDS: Multivit, Chewable SF 1 TAB PO SCH (08:44)
[2020-08-19] MEDS: methylPREDNISolone Sod Succ 40 MG VIAL IVP SCH ×2 (08:46→21:55)
[2020-08-19] MEDS: Spironolactone 25 MG TAB PO SCH (08:46)
[2020-08-19] MEDS: Gabapentin 300 MG CAP PO SCH (08:46)
[2020-08-19] MEDS: Bupropion 150 MG XL TAB PO SCH (08:46)
[2020-08-19] MEDS: Escitalopram Oxalate 20 mg Tablet PO SCH (08:46)
[2020-08-19] MEDS ORDERED: Spironolactone 100 MG TAB PO SCH (09:00)
[2020-08-19 11:18] LABS: ALT (SGPT) 11 U/L (8-55); AST (SGOT) 43 U/L (5-34); Alkaline Phosphatase 110 U/L (40-110); Anion Gap 12 mmol/L (10-20); BUN (Urea Nitrogen) 8 mg/dL (8.4-25.7); Bilirubin, Total 6.2 mg/dL (0.2-1.2); Calc. Creatinine Clearance 181 mL/min (70-130); Calcium 7.9 mg/dL (7.8-10.44); Carbon Dioxide 25 mmol/L (22-29); Chloride 97 mmol/L (98-107); Estimated GFR-MDRD Greater than 90; Globulin 3.7 g/dL (2.4-3.5); Glucose 254 mg/dL (70-105); Potassium 3.5 mmol/L (3.5-5.1); Protein, Total 5.7 g/dL (6.0-8.3); Sodium 130 mmol/L (136-145)
--- NOTE | 2020-08-19 13:33 | PDOC.PALCO ---
Palliative Care Consult - Consult Details Requesting Physician: Hospitalist Reason for Consult: goals of care, assistance with communication prognosis/disease, complex decision-making - Pertinent HPI 50 year old male with a known history of alcoholic cirrhosis, anasarca and ascites. Pronounced weakness secondary to chronic morbidities. Increase of falls in home setting paired with increasing weakness. Increase in shortness of breath. Fall day prior to presentation to the emergency room for evaluation. Confirms he lives independently in an . Confusion. States he is wanting to be placed on a liver transplant list, hopeful for "more time". Transitioned to I U. States last drink of alcohol was 6 months ago. - Social History Smoking Status: Current every day smoker Smoking: cigarettes Alcohol Use: other (states last drink was 6 months ago) Drug Use History: none Living Situation: independent - Medications MAR Reviewed: Yes - Allergies Allergies/Adverse Reactions: Allergies Allergy/AdvReac Type Severity Reaction Status Date / Time Penicillins Allergy Severe Hives Verified 08/10/20 02:16 vancomycin Allergy Severe Rash Verified 08/10/20 02:16 PIPER Inhibitors Allergy Unknown Verified 08/10/20 02:16 lisinopril Allergy Unknown Verified 08/10/20 02:16 - Subjective States he is easily fatigued, short of breath with minimal exertion. - ROS Constitutional: alert, weakness ENT: other (Denies difficulity swallowing, congestion) Respiratory: dry cough, shortness of breath with extertion Cardiology: palpitations, orthopnea Musculoskeletal: arthritis/arthralgias, back pain Psychological: anxiety - Objective Vital Signs: Vital Signs - Most Recent Temp Pulse Resp BP Pulse Ox 98.0 F 79 17 104/58 L 100 08/19/20 08:00 08/18/20 12:00 08/18/20 12:00 08/18/20 12:00 08/19/20 08:46 Palliative Performance Scale: 50 - Physical Exam Constitutional: ill appearing HEENT: moist MMs Respiratory: diminished lung sound, labored respirations Cardiovascular: RRR Deviation from normal: murmur Gastrointestinal: soft, non-tender Deviation from normal: mildly distended Genitourinary: continent Musculoskeletal: no cyanosis, no clubbing, edema present Neurology: moves all 4 limbs, no focal deficits Skin: cap refill <2 seconds, no lesions Psychiatric: A&O x 3 Deviation from normal: Difficluty at times with recall, forgetful - Problem List (1) Palliative care encounter Code(s): Z51.5 - ENCOUNTER FOR PALLIATIVE CARE Current Visit: Yes Status: Acute (2) Aortic valve insufficiency due to infection Code(s): I35.1 - NONRHEUMATIC AORTIC (VALVE) INSUFFICIENCY Current Visit: Yes Status: Acute (3) COVID-19 Code(s): U07.1 - COVID-19 Current Visit: Yes Status: Acute (4) Cirrhosis of liver not due to alcohol Current Visit: No Status: Acute (5) Demand ischemia of myocardium Code(s): I24.8 - OTHER FORMS OF ACUTE ISCHEMIC HEART DISEASE Current Visit: No Status: Acute - Plan/Recommendations Plan: Initially seen last week by Angely Lua RNwound care center consultant, who introduced services. He confirmed he lives independently in a newly purchased RV. He became a grandfather two weeks ago, hopeful to see his grandchild soon. Visited with patient in relation to multiple morbidities. He states his PCP Dr Wang stated he "could be on a transplant list for his liver". Discussed that secondary to current infection and need for abx therapy this was not currently an option. Revisited his cardiac compromise and not a candidate for surgical intervention. He states "I want to live even if for a little while". *Desires to be home with ABX therapy *Goal is to spend time with his family In attempting to discuss poor prognosis Mr Crowley was disengaged. Will revisit conversations in relation to multiple morbidities and poor prognosis paired. Home with ABX may be difficult as patient is unfunded, Case management note mentioned consideration of one time daily infusion at [facility] with approval. [60] minutes spent on this encounter with >50% of the time in counseling and coordination of care. Thank you for this very appropriate consult.
--- NOTE | 2020-08-19 16:25 | PRG ---
DATE OF SERVICE: 08/19/2020 Arnoldo Crowley remains stable. He is sleeping comfortably this morning. OBJECTIVE: VITAL SIGNS: He is afebrile. Oximetry is 96% on 2 L, blood pressure 108/50. LUNGS: Clear. HEART: Regular rhythm. ABDOMEN: Soft, nontender. LABORATORY DATA: Electrolytes are unremarkable. CBC since before. His hemoglobin was 8 g at that time. His platelets are low. This is likely related to his cirrhosis. This needs to be repeated in the morning. He is stable to move out of the intermediate care unit to a medical bed. In my opinion, he does not have to be in a monitored bed given his do not resuscitate status. Job ID: [id number]
[2020-08-19] MEDS: Melatonin 3 MG TAB PO SCH (21:54)
[2020-08-20] MEDS: Albuterol 200 PUFF (6.7GM INHALER) INH SCH ×6 (01:41→21:36)
[2020-08-20] MEDS: CEFAZOLIN 2 GM in Premix Bag 1 BAG IVPB SCH ×3 (05:45→21:05)
[2020-08-20] MEDS: Furosemide 20 MG/2 ML VIAL SLOW IVP SCH ×2 (05:45→13:35)
[2020-08-20] MEDS: HumaLOG 300 UNITS/3 ML VIAL SC PRN ×2 (05:52→13:36)
[2020-08-20 06:33] LABS: Hemoglobin 8.9 g/dL (14.0-18.0); Mean Corpuscular HGB CONC 30.7 g/dL (32.0-36.0); Mean Corpuscular Hemoglobin 24.7 pg (27.0-31.0); Mean Corpuscular Volume 80.3 fL (78.0-98.0); Mean Platelet Volume 5.6 fL (7.4-10.4); Platelet Count 58 thou/uL (130-400); RBC Distribution Width 28.5 % (11.5-14.5); Red Blood Cell (RBC) Count 3.62 mill/uL (4.70-6.10); White Blood Cell (WBC) Count 5.7 thou/uL (4.8-10.8)
[2020-08-20 06:49] LABS: Band 5 % (5-11); Lymphocytes 12 % (21-51); MDiff Complete? YES; Monocytes 7 % (0-10); Neutrophil 76 % (42-75); Platelet Morphology Comment Appears Decreased; Schistocytes SLIGHT = 2-5 cells (100X) (0-1/hpf)
--- NOTE | 2020-08-20 08:52 | PDOC.HOSPP ---
- Subjective Encounter Date: 08/20/20 Encounter Time: 08:42 Subjective: no fever, chills. no pain. no sob - Objective Vital Signs & Weight: Vital Signs (12 hours) Temp Pulse Resp BP Pulse Ox 08/20/20 08:00 97.8 F 83 18 107/44 L 93 L 08/20/20 04:00 98.3 F 91 20 130/66 92 L 08/20/20 00:00 98.6 F 90 20 129/59 L 92 L Weight Admit Weight 210 lb 5 oz Weight 190 lb 9 oz Most Recent Monitor Data Heart Rate from ECG 85 NIBP 108/50 NIBP BP-Mean 69 Respiration from ECG 30 SpO2 100 I&O: 08/19/20 08/20/20 08/21/20 06:59 06:59 06:59 Intake Total 970 1320 Output Total 1650 1770 Balance -680 -450 Result Diagrams: 08/20/20 05:48 08/19/20 10:16 Additional Labs: Accuchecks 08/20/20 08/19/20 08/19/20 05:51 19:49 17:38 POC Glucose 212 H 185 H 210 H 08/17/20 10:52 POC Glucose 169 H Hospitalist ROS - Medication Medications: Active Medications Generic Name Dose Route Start Last Admin Trade Name Freq PRN Reason Stop Dose Admin Acetaminophen 650 mg 08/10/20 10:40 08/19/20 06:54 Acetaminophen 325 Mg Tab PO 650 mg Q4H PRN Administration Headache/Fever/Mild Pain (1-3) Albuterol Sulfate 2 puff 08/18/20 18:30 08/20/20 05:46 Albuterol 200 Puff (6.7gm Inhaler) INH 2 puff [id number] HARPREET Administration Albuterol/Ipratropium 3 ml 08/18/20 19:00 08/19/20 13:53 Ipratropium/Albuterol Sulfate 3 Ml Neb NEB Not Given [id number] HARPREET Bupropion HCl 150 mg 08/11/20 09:00 08/19/20 08:46 Bupropion 150 Mg Xl Tab PO 150 mg DAILY HARPREET Administration Escitalopram Oxalate 20 mg 08/11/20 09:00 08/19/20 08:46 Escitalopram Oxalate 20 Mg Tablet PO 20 mg DAILY HARPREET Administration Furosemide 20 mg 08/18/20 14:00 08/20/20 05:45 Furosemide 20 Mg/2 Ml Vial SLOW IVP 20 mg 0600,1400 HARPREET Administration Gabapentin 300 mg 08/11/20 09:00 08/19/20 08:46 Gabapentin 300 Mg Cap PO 300 mg DAILY HARPREET Administration Cefazolin Sodium/Dextrose 2 gm 50 mls @ 100 mls/hr 08/10/20 22:00 08/20/20 05:45 / Device IVPB 50 mls Q8HR HARPREET Administration Insulin Human Lispro 0 units 08/10/20 14:50 08/20/20 05:52 Humalog 300 Units/3 Ml Vial SC 3 unit .MILD SLIDING SCALE PRN Administration Mild Correctional Scale Insulin Human Lispro 0 units 08/10/20 14:50 08/12/20 23:13 Humalog 300 Units/3 Ml Vial SC 2 unit .BEDTIME SLIDING SC PRN Administration Bedtime Correctional Scale Melatonin 6 mg 08/11/20 21:00 08/19/20 21:54 Melatonin 3 Mg Tab PO 6 mg HS HARPREET Administration Methylcellulose 500 mg 08/16/20 09:00 08/19/20 08:44 Citrucel 500 Mg Tab PO 500 mg DAILY HARPREET Administration Methylprednisolone Sodium Succinate 40 mg 08/18/20 21:00 08/19/20 21:55 Methylprednisolone Sod Succ 40 Mg Vial IVP 40 mg BID HARPREET Administration Multivitamins 1 tab 08/11/20 09:00 08/19/20 08:44 Multivit, Chewable Sf 1 Tab PO 1 tab DAILY HARPREET Administration Propranolol HCl 10 mg 08/17/20 09:00 08/19/20 08:44 Propranolol 10 Mg Tab PO 10 mg DAILY HARPREET Administration Sodium Chloride 1 gm 08/12/20 09:00 08/19/20 22:13 Sodium Chloride 1 Gm Tab PO 1 gm BID HARPREET Administration Sodium Chloride 10 ml 08/12/20 09:00 08/19/20 21:55 Flush - Normal Saline 10 Ml Syringe IVF 10 ml Q12HR HARPREET Administration Sodium Chloride 10 ml 08/12/20 09:00 08/19/20 06:09 Flush - Normal Saline 10 Ml Syringe IVF 10 ml PRN PRN Administration Saline Flush Spironolactone 25 mg 08/19/20 09:00 08/19/20 08:46 Spironolactone 25 Mg Tab PO 25 mg DAILY HARPREET Administration Tramadol HCl 50 mg 08/10/20 19:56 08/12/20 23:06 Tramadol Hcl 50 Mg Tab PO 50 mg Q4H PRN Administration Pain 4-6 - Exam General Appearance: awake alert Eye: scleral icterus Neck: no JVD Heart: RRR, murmur present, III/IV Heart - other findings: diastolic Respiratory: CTAB Gastrointestinal: soft, non-distended, normal bowel sounds Extremities: 1+ LE edema Hosp A/P (1) 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 Code(s): I33.0 - ACUTE AND SUBACUTE INFECTIVE ENDOCARDITIS; B95.8 - UNSP STAPHYLOCOCCUS THE CAUSE OF DISEASES CLASSD ELSWHR Status: Acute (2) Aortic valve insufficiency due to infection Code(s): I35.1 - NONRHEUMATIC AORTIC (VALVE) INSUFFICIENCY Status: Acute (3) Cirrhosis of liver Code(s): K74.60 - UNSPECIFIED CIRRHOSIS OF LIVER Status: Chronic Qualifiers: Hepatic cirrhosis type: alcoholic cirrhosis Ascites presence: unspecified Qualified Code(s): K70.30 - Alcoholic cirrhosis of liver without ascites (4) Bacteremia due to Gram-positive bacteria Code(s): R78.81 - BACTEREMIA Status: Acute (5) Coagulopathy Status: Chronic (6) DM type 2 (diabetes mellitus, type 2) Status: Chronic Qualifiers: Diabetes mellitus senior care insulin use: without intermission coordinator use Diabetes mellitus complication status: without complication Qualified Code(s): E11.9 - Type 2 diabetes mellitus without complications (7) Hypertension Code(s): I10 - ESSENTIAL (PRIMARY) HYPERTENSION Status: Chronic Qualifiers: Hypertension type: essential hypertension Qualified Code(s): I10 - Essential (primary) hypertension (8) COVID-19 Code(s): U07.1 - COVID-19 Status: Acute - Plan cont iv antibx cont accu/ss/etc discuss with inspector coated fabrics, ID, etc cont airborne isolation cont O2 supplementation eventual placement
[2020-08-20] MEDS: Spironolactone 25 MG TAB PO SCH (09:10)
[2020-08-20] MEDS: Escitalopram Oxalate 20 mg Tablet PO SCH (09:10)
[2020-08-20] MEDS: Gabapentin 300 MG CAP PO SCH (09:11)
[2020-08-20] MEDS: Bupropion 150 MG XL TAB PO SCH (09:11)
[2020-08-20] MEDS: Sodium Chloride 1 GM TAB PO SCH ×2 (09:12→21:03)
[2020-08-20] MEDS: Multivit, Chewable SF 1 TAB PO SCH (09:13)
[2020-08-20] MEDS: Citrucel 500 MG TAB PO SCH (09:14)
[2020-08-20] MEDS: methylPREDNISolone Sod Succ 40 MG VIAL IVP SCH ×2 (09:16→21:04)
[2020-08-20] MEDS: Propranolol 10 MG TAB PO SCH (09:19)
[2020-08-20] MEDS: Melatonin 3 MG TAB PO SCH (21:03)
[2020-08-20] MEDS: Guaifenesin DM 100-10/5 ML UDCUP PO PRN (23:49)
[2020-08-21] MEDS: Albuterol 200 PUFF (6.7GM INHALER) INH SCH ×6 (02:28→22:30)
[2020-08-21] MEDS: CEFAZOLIN 2 GM in Premix Bag 1 BAG IVPB SCH ×2 (06:29→18:04)
[2020-08-21] MEDS: Furosemide 20 MG/2 ML VIAL SLOW IVP SCH (06:31)
[2020-08-21] MEDS: HumaLOG 300 UNITS/3 ML VIAL SC PRN ×4 (06:33→20:06)
[2020-08-21 06:34] LABS: Hemoglobin 9.1 g/dL (14.0-18.0); Mean Corpuscular HGB CONC 30.1 g/dL (32.0-36.0); Mean Corpuscular Hemoglobin 24.7 pg (27.0-31.0); Mean Corpuscular Volume 81.9 fL (78.0-98.0); Platelet Count 63 thou/uL (130-400); RBC Distribution Width 28.7 % (11.5-14.5)
[2020-08-21 07:02] LABS: Anisocytosis MODERATE=16-30 cells (100X) (0-5/hpf); Band 18 % (5-11); Lymphocytes 10 % (21-51); MDiff Complete? YES; Monocytes 2 % (0-10); Neutrophil 70 % (42-75); Platelet Morphology Comment Appears Decreased; Schistocytes MODERATE= 6-15 cells (100X) (0-1/hpf)
[2020-08-21] MEDS: Sodium Chloride 1 GM TAB PO SCH ×2 (08:22→20:04)
[2020-08-21] MEDS: Gabapentin 300 MG CAP PO SCH (08:22)
[2020-08-21] MEDS: Spironolactone 25 MG TAB PO SCH (08:22)
[2020-08-21] MEDS: Citrucel 500 MG TAB PO SCH (08:22)
[2020-08-21] MEDS: Propranolol 10 MG TAB PO SCH (08:22)
[2020-08-21] MEDS: Bupropion 150 MG XL TAB PO SCH (08:22)
[2020-08-21] MEDS: Escitalopram Oxalate 20 mg Tablet PO SCH (08:22)
[2020-08-21] MEDS: Multivit, Chewable SF 1 TAB PO SCH (08:22)
[2020-08-21] MEDS: methylPREDNISolone Sod Succ 40 MG VIAL IVP SCH ×2 (08:23→20:07)
--- NOTE | 2020-08-21 08:41 | PDOC.HOSPP ---
- Subjective Encounter Date: 08/21/20 Encounter Time: 08:39 Subjective: alert, no complaints - Objective Vital Signs & Weight: Weight Admit Weight 210 lb 5 oz Weight 190 lb Most Recent Monitor Data Heart Rate from ECG 85 NIBP 108/50 NIBP BP-Mean 69 Respiration from ECG 30 SpO2 100 I&O: 08/20/20 08/21/20 08/22/20 06:59 06:59 06:59 Intake Total 1320 1460 Output Total 1770 1950 Balance -450 -490 Result Diagrams: 08/21/20 06:10 08/19/20 10:16 Additional Labs: Accuchecks 08/21/20 08/20/20 08/20/20 04:46 21:15 16:57 POC Glucose 223 H 174 H 196 H 08/20/20 10:59 POC Glucose 221 H Hospitalist ROS - Medication Medications: Active Medications Generic Name Dose Route Start Last Admin Trade Name Freq PRN Reason Stop Dose Admin Acetaminophen 650 mg 08/10/20 10:40 08/19/20 06:54 Acetaminophen 325 Mg Tab PO 650 mg Q4H PRN Administration Headache/Fever/Mild Pain (1-3) Albuterol Sulfate 2 puff 08/18/20 18:30 08/21/20 06:31 Albuterol 200 Puff (6.7gm Inhaler) INH 2 puff [id number] HARPREET Administration Bupropion HCl 150 mg 08/11/20 09:00 08/21/20 08:22 Bupropion 150 Mg Xl Tab PO 150 mg DAILY HARPREET Administration Escitalopram Oxalate 20 mg 08/11/20 09:00 08/21/20 08:22 Escitalopram Oxalate 20 Mg Tablet PO 20 mg DAILY HARPREET Administration Furosemide 20 mg 08/18/20 14:00 08/21/20 06:31 Furosemide 20 Mg/2 Ml Vial SLOW IVP 20 mg 0600,1400 HARPREET Administration Gabapentin 300 mg 08/11/20 09:00 08/21/20 08:22 Gabapentin 300 Mg Cap PO 300 mg DAILY HARPREET Administration Guaifenesin/Dextromethorphan 15 ml 08/10/20 10:40 08/20/20 23:49 Guaifenesin Dm 100-10/5 Ml Udcup PO 15 ml Q4H PRN Administration Cough Insulin Human Lispro 0 units 08/10/20 14:50 08/21/20 06:33 Humalog 300 Units/3 Ml Vial SC 3 unit .MILD SLIDING SCALE PRN Administration Mild Correctional Scale Insulin Human Lispro 0 units 08/10/20 14:50 08/12/20 23:13 Humalog 300 Units/3 Ml Vial SC 2 unit .BEDTIME SLIDING SC PRN Administration Bedtime Correctional Scale Melatonin 6 mg 08/11/20 21:00 08/20/20 21:03 Melatonin 3 Mg Tab PO 6 mg HS HARPREET Administration Methylcellulose 500 mg 08/16/20 09:00 08/21/20 08:22 Citrucel 500 Mg Tab PO 500 mg DAILY HARPREET Administration Methylprednisolone Sodium Succinate 40 mg 08/18/20 21:00 08/21/20 08:23 Methylprednisolone Sod Succ 40 Mg Vial IVP 40 mg BID HARPREET Administration Multivitamins 1 tab 08/11/20 09:00 08/21/20 08:22 Multivit, Chewable Sf 1 Tab PO 1 tab DAILY HARPREET Administration Propranolol HCl 10 mg 08/17/20 09:00 08/21/20 08:22 Propranolol 10 Mg Tab PO 10 mg DAILY HARPREET Administration Sodium Chloride 1 gm 08/12/20 09:00 08/21/20 08:22 Sodium Chloride 1 Gm Tab PO 1 gm BID HARPREET Administration Sodium Chloride 10 ml 08/12/20 09:00 08/21/20 08:23 Flush - Normal Saline 10 Ml Syringe IVF 10 ml Q12HR HARPREET Administration Sodium Chloride 10 ml 08/12/20 09:00 08/19/20 06:09 Flush - Normal Saline 10 Ml Syringe IVF 10 ml PRN PRN Administration Saline Flush Spironolactone 25 mg 08/19/20 09:00 08/21/20 08:22 Spironolactone 25 Mg Tab PO 25 mg DAILY HARPREET Administration - Exam General Appearance: awake alert Neck: no JVD Heart: RRR, III/IV Heart - other findings: diastolic Respiratory: CTAB Gastrointestinal: soft, normal bowel sounds Extremities: 2+ LE edema Hosp A/P (1) 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 Code(s): I33.0 - ACUTE AND SUBACUTE INFECTIVE ENDOCARDITIS; B95.8 - UNSP STAPHYLOCOCCUS THE CAUSE OF DISEASES CLASSD ELSWHR Status: Acute (2) Aortic valve insufficiency due to infection Code(s): I35.1 - NONRHEUMATIC AORTIC (VALVE) INSUFFICIENCY Status: Acute (3) Cirrhosis of liver Code(s): K74.60 - UNSPECIFIED CIRRHOSIS OF LIVER Status: Chronic Qualifiers: Hepatic cirrhosis type: alcoholic cirrhosis Ascites presence: unspecified Qualified Code(s): K70.30 - Alcoholic cirrhosis of liver without ascites (4) Bacteremia due to Gram-positive bacteria Code(s): R78.81 - BACTEREMIA Status: Acute (5) Coagulopathy Status: Chronic (6) DM type 2 (diabetes mellitus, type 2) Status: Chronic Qualifiers: Diabetes mellitus penitentiary insulin use: without penitentiary use Diabetes mellitus complication status: without complication Qualified Code(s): E11.9 - Type 2 diabetes mellitus without complications (7) Hypertension Code(s): I10 - ESSENTIAL (PRIMARY) HYPERTENSION Status: Chronic Qualifiers: Hypertension type: essential hypertension Qualified Code(s): I10 - Essential (primary) hypertension (8) COVID-19 Code(s): U07.1 - COVID-19 Status: Acute - Plan cont iv antibx x 6 weeks cont accu/ss/etc change lasix to 40mg po daily, increase spironolactone to 50 mg daily. BMP daily x 4 cont airborne isolation cont O2 supplementation eventual placement
[2020-08-21 09:41] LABS: Anion Gap 11 mmol/L (10-20); BUN (Urea Nitrogen) 10 mg/dL (8.4-25.7); Calc. Creatinine Clearance 172 mL/min (70-130); Calcium 8.1 mg/dL (7.8-10.44); Carbon Dioxide 29 mmol/L (22-29); Chloride 99 mmol/L (98-107); Estimated GFR-MDRD Greater than 90; Glucose 167 mg/dL (70-105); Potassium 3.3 mmol/L (3.5-5.1); Sodium 136 mmol/L (136-145)
[2020-08-21] MEDS: Melatonin 3 MG TAB PO SCH (20:04)
[2020-08-22] MEDS: CEFAZOLIN 2 GM in Premix Bag 1 BAG IVPB SCH ×2 (00:07→08:42)
[2020-08-22] MEDS: Acetaminophen 325 MG TAB PO PRN ×2 (01:17→20:32)
[2020-08-22] MEDS: Guaifenesin DM 100-10/5 ML UDCUP PO PRN ×2 (01:17→20:31)
[2020-08-22] MEDS: Albuterol 200 PUFF (6.7GM INHALER) INH SCH ×6 (02:30→22:19)
[2020-08-22] MEDS: HumaLOG 300 UNITS/3 ML VIAL SC PRN ×4 (04:52→21:14)
[2020-08-22 07:01] LABS: Hemoglobin 9.7 g/dL (14.0-18.0); Mean Corpuscular HGB CONC 29.2 g/dL (32.0-36.0); Mean Corpuscular Hemoglobin 24.2 pg (27.0-31.0); Mean Corpuscular Volume 82.6 fL (78.0-98.0); Mean Platelet Volume 6.1 fL (7.4-10.4); Platelet Count 86 thou/uL (130-400); RBC Distribution Width 28.7 % (11.5-14.5); Red Blood Cell (RBC) Count 4.02 mill/uL (4.70-6.10); White Blood Cell (WBC) Count 8.5 thou/uL (4.8-10.8)
[2020-08-22 07:07] LABS: Anion Gap 11 mmol/L (10-20); BUN (Urea Nitrogen) 11 mg/dL (8.4-25.7); Calc. Creatinine Clearance 175 mL/min (70-130); Calcium 8.6 mg/dL (7.8-10.44); Carbon Dioxide 25 mmol/L (22-29); Chloride 100 mmol/L (98-107); Estimated GFR-MDRD Greater than 90; Glucose 259 mg/dL (70-105); Potassium 4.2 mmol/L (3.5-5.1); Sodium 132 mmol/L (136-145)
[2020-08-22 08:20] LABS: Anisocytosis MODERATE=16-30 cells (100X) (0-5/hpf); Band 6 % (5-11); Bite Cells SLIGHT = 2-5 cells (100X) (0-1/hpf); Burr Cells MODERATE= 6-15 cells (100X) (0-1/hpf); Hypochromia SLIGHT = 6-15 cells (100X) (0-5/hpf); Lymphocytes 10 % (21-51); MDiff Complete? YES; Monocytes 5 % (0-10); Neutrophil 79 % (42-75); Platelet Morphology Comment Appears Decreased; Polychromasia MODERATE = 3-4 cells (100X) (0-2/hpf); Schistocytes SLIGHT = 2-5 cells (100X) (0-1/hpf)
[2020-08-22] MEDS: Bupropion 150 MG XL TAB PO SCH (08:41)
[2020-08-22] MEDS: Furosemide 40 MG TAB PO SCH (08:41)
[2020-08-22] MEDS: Escitalopram Oxalate 20 mg Tablet PO SCH (08:41)
[2020-08-22] MEDS: Multivit, Chewable SF 1 TAB PO SCH (08:41)
[2020-08-22] MEDS: Spironolactone 100 MG TAB PO SCH (08:41)
[2020-08-22] MEDS: Sodium Chloride 1 GM TAB PO SCH ×2 (08:41→20:31)
[2020-08-22] MEDS: Propranolol 10 MG TAB PO SCH (08:41)
[2020-08-22] MEDS: methylPREDNISolone Sod Succ 40 MG VIAL IVP SCH ×2 (08:42→20:33)
[2020-08-22] MEDS: Gabapentin 300 MG CAP PO SCH (08:42)
[2020-08-22] MEDS: Citrucel 500 MG TAB PO SCH (08:42)
--- NOTE | 2020-08-22 09:03 | PDOC.HOSPP ---
- Subjective Encounter Date: 08/22/20 Encounter Time: 09:03 Subjective: no fever, chills, etc - Objective Vital Signs & Weight: Weight Admit Weight 210 lb 5 oz Weight 190 lb Most Recent Monitor Data Heart Rate from ECG 85 NIBP 108/50 NIBP BP-Mean 69 Respiration from ECG 30 SpO2 100 I&O: 08/21/20 08/22/20 08/23/20 06:59 06:59 06:59 Intake Total 1460 1570 Output Total 1950 1800 Balance -490 -230 Result Diagrams: 08/22/20 05:51 08/22/20 05:51 Additional Labs: Accuchecks 08/22/20 08/21/20 08/21/20 04:48 19:52 16:37 POC Glucose 280 H 287 H 288 H 08/21/20 12:37 POC Glucose 319 H Hospitalist ROS - Medication Medications: Active Medications Generic Name Dose Route Start Last Admin Trade Name Freq PRN Reason Stop Dose Admin Acetaminophen 650 mg 08/10/20 10:40 08/22/20 01:17 Acetaminophen 325 Mg Tab PO 650 mg Q4H PRN Administration Headache/Fever/Mild Pain (1-3) Albuterol Sulfate 2 puff 08/18/20 18:30 08/22/20 06:34 Albuterol 200 Puff (6.7gm Inhaler) INH 2 puff [id number] HARPREET Administration Bupropion HCl 150 mg 08/11/20 09:00 08/22/20 08:41 Bupropion 150 Mg Xl Tab PO 150 mg DAILY HARPREET Administration Escitalopram Oxalate 20 mg 08/11/20 09:00 08/22/20 08:41 Escitalopram Oxalate 20 Mg Tablet PO 20 mg DAILY HARPREET Administration Furosemide 40 mg 08/22/20 07:30 08/22/20 08:41 Furosemide 40 Mg Tab PO 40 mg DAILY-AC HARPREET Administration Gabapentin 300 mg 08/11/20 09:00 08/22/20 08:42 Gabapentin 300 Mg Cap PO 300 mg DAILY HARPREET Administration Guaifenesin/Dextromethorphan 15 ml 08/10/20 10:40 08/22/20 01:17 Guaifenesin Dm 100-10/5 Ml Udcup PO 15 ml Q4H PRN Administration Cough Cefazolin Sodium/Dextrose 2 gm 50 mls @ 100 mls/hr 08/21/20 17:00 08/22/20 08:42 / Device IVPB 50 mls 0100,0900,1700 HARPREET Administration Insulin Human Lispro 0 units 08/10/20 14:50 08/22/20 04:52 Humalog 300 Units/3 Ml Vial SC 4 unit .MILD SLIDING SCALE PRN Administration Mild Correctional Scale Insulin Human Lispro 0 units 08/10/20 14:50 08/21/20 20:06 Humalog 300 Units/3 Ml Vial SC 3 unit .BEDTIME SLIDING SC PRN Administration Bedtime Correctional Scale Melatonin 6 mg 08/11/20 21:00 08/21/20 20:04 Melatonin 3 Mg Tab PO 6 mg HS HARPREET Administration Methylcellulose 500 mg 08/16/20 09:00 08/22/20 08:42 Citrucel 500 Mg Tab PO 500 mg DAILY HARPREET Administration Methylprednisolone Sodium Succinate 40 mg 08/18/20 21:00 08/22/20 08:42 Methylprednisolone Sod Succ 40 Mg Vial IVP 40 mg BID HARPREET Administration Multivitamins 1 tab 08/11/20 09:00 08/22/20 08:41 Multivit, Chewable Sf 1 Tab PO 1 tab DAILY HARPREET Administration Propranolol HCl 10 mg 08/17/20 09:00 08/22/20 08:41 Propranolol 10 Mg Tab PO 10 mg DAILY HARPREET Administration Sodium Chloride 1 gm 08/12/20 09:00 08/22/20 08:41 Sodium Chloride 1 Gm Tab PO 1 gm BID HARPREET Administration Sodium Chloride 10 ml 08/12/20 09:00 08/21/20 20:05 Flush - Normal Saline 10 Ml Syringe IVF 10 ml Q12HR HARPREET Administration Sodium Chloride 10 ml 08/12/20 09:00 08/19/20 06:09 Flush - Normal Saline 10 Ml Syringe IVF 10 ml PRN PRN Administration Saline Flush Spironolactone 50 mg 08/22/20 08:00 08/22/20 08:41 Spironolactone 100 Mg Tab PO 50 mg QAM-WM HARPREET Administration - Exam General Appearance: awake alert Neck: no JVD Heart: RRR, no murmur Respiratory: CTAB, no wheezes Gastrointestinal: soft, non-distended, normal bowel sounds Extremities: 1+ LE edema Hosp A/P (1) 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 Code(s): I33.0 - ACUTE AND SUBACUTE INFECTIVE ENDOCARDITIS; B95.8 - UNSP STAPHYLOCOCCUS THE CAUSE OF DISEASES CLASSD ELSWHR Status: Acute (2) Aortic valve insufficiency due to infection Code(s): I35.1 - NONRHEUMATIC AORTIC (VALVE) INSUFFICIENCY Status: Acute (3) Cirrhosis of liver Code(s): K74.60 - UNSPECIFIED CIRRHOSIS OF LIVER Status: Chronic Qualifiers: Hepatic cirrhosis type: alcoholic cirrhosis Ascites presence: unspecified Qualified Code(s): K70.30 - Alcoholic cirrhosis of liver without ascites (4) Bacteremia due to Gram-positive bacteria Code(s): R78.81 - BACTEREMIA Status: Acute (5) Coagulopathy Status: Chronic (6) DM type 2 (diabetes mellitus, type 2) Status: Chronic Qualifiers: Diabetes mellitus continuous churn buttermaker insulin use: without continuous churn buttermaker use Diabetes mellitus complication status: without complication Qualified Code(s): E11.9 - Type 2 diabetes mellitus without complications (7) Hypertension Code(s): I10 - ESSENTIAL (PRIMARY) HYPERTENSION Status: Chronic Qualifiers: Hypertension type: essential hypertension Qualified Code(s): I10 - [place]ia l (primary) hypertension (8) COVID-19 Code(s): U07.1 - COVID-19 Status: Acute - Plan cont iv antibx x 6 weeks cont accu/ss/etc lasix to 40mg po daily, spironolactone to 50 mg daily. BMP daily x 4 cont airborne isolation cont O2 supplementation case [id number] working on outpt iv tx
--- NOTE | 2020-08-22 12:24 | PRG ---
DATE OF SERVICE: 08/22/2020 SUBJECTIVE: Mr. Crowley denies any headaches. No shortness of breath or abdominal pain. No vomiting. No back pain. OBJECTIVE: VITAL SIGNS: Show normal temperature, blood pressure 120/56, he is saturating at 94% with 1 L nasal cannula. LUNGS: Symmetric air entry. HEART: S1 and S2. Regular rate. ABDOMEN: Soft, not distended. EXTREMITIES: No edema. NEUROLOGIC: Nonfocal. LABORATORY DATA: White cell count is 8.5, hemoglobin 9.7, platelets 86,000, 79% neutrophils. Creatinine 0.61. It looks like we have detected SARS-CoV2 PCR when the first one in August 09 was not detected. He is currently receiving cefazolin, methylprednisolone. 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 The initial strain was identified as beta-lactam susceptible, but now the second set from this admission has been identified as methicillin-resistant. Repeat blood cultures from August 11 are negative, but we will go ahead and transition the patient to daptomycin, which will be the medication that he will receive in the outpatient setting. He had a repeat chest x-ray on August 18, which demonstrated patchy parenchymal changes in the left lung and SARS-CoV test was done, which was positive. Since the patient has been in the hospital between here and the rehab and then back, it is likely that this represents nosocomial acquisition of SARS-CoV2. He is saturating at 94% with 1 L, but he is at risk for further deterioration. Since this must be a recent infectious process maybe within the past 7 days, it was hard to tell when. His initial COVID test was negative on August 09 and on July 26, he had a negative SARS-CoV2 antibody index and on July 26, he had a nondetected SARS-CoV, so he has 2 nondetected and now one week after the last nondetected, he has a detected PCR, so I think discharge planning will have to wait until this has clearly gone and/or asymptomatic direction. It looks like his O2 saturations are 96% today, so hopefully he is not going to have a severe case. This is going to complicate discharge planning because of the need for outpatient treatment for his staphylococcal infection. Will have to wait until he is considered non-infectious from the standpoint of SARS CoV2 Job ID: [id number] [facility]ENTERAngely
[2020-08-22 12:34] VITALS: BMI 25.0
[2020-08-22] MEDS: DAPTOmycin 500 MG in Sodium Chloride 0.9% 100 ML IVPB SCH (15:06)
[2020-08-22] MEDS: Melatonin 3 MG TAB PO SCH (20:31)
[2020-08-23] MEDS: Albuterol 200 PUFF (6.7GM INHALER) INH SCH ×6 (02:31→22:20)
[2020-08-23] MEDS: Sucralfate 1 GM/10 ML UDCUP PO PRN ×2 (03:29→23:57)
[2020-08-23] MEDS: HumaLOG 300 UNITS/3 ML VIAL SC PRN ×4 (03:39→21:29)
[2020-08-23 06:38] LABS: Anion Gap 9 mmol/L (10-20); BUN (Urea Nitrogen) 13 mg/dL (8.4-25.7); Calc. Creatinine Clearance 150 mL/min (70-130); Calcium 8.5 mg/dL (7.8-10.44); Carbon Dioxide 27 mmol/L (22-29); Chloride 101 mmol/L (98-107); Estimated GFR-MDRD Greater than 90; Glucose 398 mg/dL (70-105); Hemoglobin 9.1 g/dL (14.0-18.0); Lymphocytes 11 % (21-51); MDiff Complete? YES; Mean Corpuscular HGB CONC 31.2 g/dL (32.0-36.0); Mean Corpuscular Hemoglobin 25.3 pg (27.0-31.0); Mean Corpuscular Volume 81.1 fL (78.0-98.0); Mean Platelet Volume 7.3 fL (7.4-10.4); Monocytes 4 % (0-10); Neutrophil 85 % (42-75); Platelet Count 67 thou/uL (130-400); Platelet Morphology Comment Appears Decreased; Potassium 3.4 mmol/L (3.5-5.1); RBC Distribution Width 28.2 % (11.5-14.5); Red Blood Cell (RBC) Count 3.59 mill/uL (4.70-6.10); Sodium 134 mmol/L (136-145); White Blood Cell (WBC) Count 6.3 thou/uL (4.8-10.8)
[2020-08-23] MEDS: Bupropion 150 MG XL TAB PO SCH (08:44)
[2020-08-23] MEDS: Furosemide 40 MG TAB PO SCH (08:44)
[2020-08-23] MEDS: Spironolactone 100 MG TAB PO SCH (08:44)
[2020-08-23] MEDS: Gabapentin 300 MG CAP PO SCH (08:45)
[2020-08-23] MEDS: Escitalopram Oxalate 20 mg Tablet PO SCH (08:45)
[2020-08-23] MEDS: methylPREDNISolone Sod Succ 40 MG VIAL IVP SCH ×2 (08:45→20:54)
[2020-08-23] MEDS: Multivit, Chewable SF 1 TAB PO SCH (08:46)
[2020-08-23] MEDS: Propranolol 10 MG TAB PO SCH (08:46)
[2020-08-23] MEDS: Sodium Chloride 1 GM TAB PO SCH ×2 (08:46→20:53)
[2020-08-23] MEDS: Citrucel 500 MG TAB PO SCH (08:47)
[2020-08-23] MEDS: Acetaminophen 325 MG TAB PO PRN ×2 (11:05→20:53)
--- NOTE | 2020-08-23 11:39 | PDOC.HOSPP ---
- Subjective Encounter Date: 08/23/20 Encounter Time: 11:35 Subjective: dyspneic this morning. nausea he assoc with coughing. - Objective Vital Signs & Weight: Weight Admit Weight 210 lb 5 oz Weight 190 lb Most Recent Monitor Data Heart Rate from ECG 85 NIBP 108/50 NIBP BP-Mean 69 Respiration from ECG 30 SpO2 100 I&O: 08/22/20 08/23/20 08/24/20 06:59 06:59 06:59 Intake Total 1570 1180 Output Total 1800 2100 Balance -230 -920 Result Diagrams: 08/23/20 05:45 08/23/20 05:45 Additional Labs: Accuchecks 08/23/20 08/22/20 08/22/20 03:38 20:39 15:15 POC Glucose 349 H 268 H 361 H Hospitalist ROS - Medication Medications: Active Medications Generic Name Dose Route Start Last Admin Trade Name Freq PRN Reason Stop Dose Admin Acetaminophen 650 mg 08/10/20 10:40 08/23/20 11:05 Acetaminophen 325 Mg Tab PO 650 mg Q4H PRN Administration Headache/Fever/Mild Pain (1-3) Albuterol Sulfate 2 puff 08/18/20 18:30 08/23/20 08:47 Albuterol 200 Puff (6.7gm Inhaler) INH 2 puff [id number] HARPREET Administration Bupropion HCl 150 mg 08/11/20 09:00 08/23/20 08:44 Bupropion 150 Mg Xl Tab PO 150 mg DAILY HARPREET Administration Escitalopram Oxalate 20 mg 08/11/20 09:00 08/23/20 08:45 Escitalopram Oxalate 20 Mg Tablet PO 20 mg DAILY HARPREET Administration Furosemide 40 mg 08/22/20 07:30 08/23/20 08:44 Furosemide 40 Mg Tab PO 40 mg DAILY-AC HARPREET Administration Gabapentin 300 mg 08/11/20 09:00 08/23/20 08:45 Gabapentin 300 Mg Cap PO 300 mg DAILY HARPREET Administration Guaifenesin/Dextromethorphan 15 ml 08/10/20 10:40 08/22/20 20:31 Guaifenesin Dm 100-10/5 Ml Udcup PO 15 ml Q4H PRN Administration Cough Daptomycin 500 mg/ Sodium 100 mls @ 200 mls/hr 08/22/20 14:00 08/22/20 15:06 Chloride IVPB 100 mls Q24HR HARPREET Administration Insulin Human Lispro 0 units 08/10/20 14:50 08/23/20 03:39 Humalog 300 Units/3 Ml Vial SC 5 unit .MILD SLIDING SCALE PRN Administration Mild Correctional Scale Insulin Human Lispro 0 units 08/10/20 14:50 08/22/20 21:14 Humalog 300 Units/3 Ml Vial SC 3 unit .BEDTIME SLIDING SC PRN Administration Bedtime Correctional Scale Melatonin 6 mg 08/11/20 21:00 08/22/20 20:31 Melatonin 3 Mg Tab PO 6 mg HS HARPREET Administration Methylcellulose 500 mg 08/16/20 09:00 08/23/20 08:47 Citrucel 500 Mg Tab PO 500 mg DAILY HARPREET Administration Methylprednisolone Sodium Succinate 40 mg 08/18/20 21:00 08/23/20 08:45 Methylprednisolone Sod Succ 40 Mg Vial IVP 40 mg BID HARPREET Administration Multivitamins 1 tab 08/11/20 09:00 08/23/20 08:46 Multivit, Chewable Sf 1 Tab PO 1 tab DAILY HARPREET Administration Propranolol HCl 10 mg 08/17/20 09:00 08/23/20 08:46 Propranolol 10 Mg Tab PO 10 mg DAILY HARPREET Administration Sodium Chloride 1 gm 08/12/20 09:00 08/23/20 08:46 Sodium Chloride 1 Gm Tab PO 1 gm BID HARPREET Administration Sodium Chloride 10 ml 08/12/20 09:00 08/23/20 08:47 Flush - Normal Saline 10 Ml Syringe IVF 10 ml Q12HR HARPREET Administration Sodium Chloride 10 ml 08/12/20 09:00 08/19/20 06:09 Flush - Normal Saline 10 Ml Syringe IVF 10 ml PRN PRN Administration Saline Flush Spironolactone 50 mg 08/22/20 08:00 08/23/20 08:44 Spironolactone 100 Mg Tab PO 50 mg QAM-WM HARPREET Administration Sucralfate 1 gm 08/10/20 14:47 08/23/20 03:29 Sucralfate 1 Gm/10 Ml Udcup PO 1 gm QID PRN Administration ODNYOPHAGIA - Exam General Appearance: awake alert Neck: no JVD Heart: RRR, II/IV Heart - other findings: diastolic Respiratory - other findings: coarse with rhonchi Gastrointestinal: soft, non-tender, normal bowel sounds Extremities: no edema Hosp A/P (1) 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 Code(s): I33.0 - ACUTE AND SUBACUTE INFECTIVE ENDOCARDITIS; B95.8 - UNSP STAPHYLOCOCCUS THE CAUSE OF DISEASES CLASSD ELSWHR Status: Acute (2) Aortic valve insufficiency due to infection Code(s): I35.1 - NONRHEUMATIC AORTIC (VALVE) INSUFFICIENCY Status: Acute (3) Cirrhosis of liver Code(s): K74.60 - UNSPECIFIED CIRRHOSIS OF LIVER Status: Chronic Qualifiers: Hepatic cirrhosis type: alcoholic cirrhosis Ascites presence: unspecified Qualified Code(s): K70.30 - Alcoholic cirrhosis of liver without ascites (4) Bacteremia due to Gram-positive bacteria Code(s): R78.81 - BACTEREMIA Status: Acute (5) Coagulopathy Status: Chronic (6) DM type 2 (diabetes mellitus, type 2) Status: Chronic Qualifiers: Diabetes mellitus assisted insulin use: without assisted use Diabetes mellitus complication status: without complication Qualified Code(s): E11.9 - Type 2 diabetes mellitus without complications (7) Hypertension Code(s): I10 - ESSENTIAL (PRIMARY) HYPERTENSION Status: Chronic Qualifiers: Hypertension type: essential hypertension Qualified Code(s): I10 - Essential (primary) hypertension (8) COVID-19 Code(s): U07.1 - COVID-19 Status: Acute - Plan CXR- reevaluate cont iv antibx x 6 weeks cont accu/ss/etc lasix to 40mg po daily, spironolactone to 50 mg daily. BMP daily x 4 cont airborne isolation cont O2 supplementation case management working on outpt iv tx
--- NOTE | 2020-08-23 12:30 | RAD ---
EXAM: CHEST ONE VIEW HISTORY: Shortness of breath. COMPARISON: 08/18/2020 FINDINGS: Left-sided PICC line is noted in place. The heart is enlarged. Bilateral interstitial and alveolar op acities are seen primarily in a perihilar location with larger area of consolidation seen at the right lung base. Findings may related to multifocal pneumonia or possibly related to viral pneumoniti s . Postoperative changes lower cervical spine are present. IMPRESSION: 1. Interval increase in bilateral perihilar interstitial and alveolar opacities with greater area of consolidation at the right lung base. This may be related to multifocal pneumonia or possibly secondary to viral pneumonitis. 2. Cardiomegaly.
[2020-08-23] MEDS ORDERED: REMDESIVIR (EUA) 200 MG in Sodium Chloride 0.9% 250 ML 210 ML IV SCH (13:15)
[2020-08-23] MEDS: DAPTOmycin 500 MG in Sodium Chloride 0.9% 100 ML IVPB SCH (14:04)
--- NOTE | 2020-08-23 14:26 | PRG ---
DATE OF SERVICE: 08/23/2020 SUBJECTIVE: Mr. Crowley appears count comfortable at rest in bed. He is having chest pain. He is coughing intermittently. He has no abdominal pain. No diarrhea. OBJECTIVE: VITAL SIGNS: He has been afebrile and his respiratory rate is 18 to 20. His O2 saturations are 93 to 96 on 2 L nasal cannula. he was at 5 L nasal cannula and he was saturating at 93. HEENT: He has scleral icterus. LUNGS: Basilar inspiratory crackles. HEART: S1, S2. Regular rate. ABDOMEN: Soft, not distended. EXTREMITIES: No joint inflammatory activity, moves his extremities equally. LABORATORY DATA: White cell count is at 6.3, hemoglobin 9.1, platelets 67,000, and 85% neutrophils. D-dimer 4.46. Creatinine 0.71. SARS-CoV2 was PCR positive from August 18. Chest x-ray with diffuse bilateral infiltrates. ASSESSMENT AND DISCUSSION: Cirrhosis due to alcoholism, type 2 diabetes, associated with chronic pancreatitis, multiple episodes of bacteremia and now Staphylococcus sciuri bacteremia, aortic valve endocarditis, two different strains. The latest strain is methicillin-resistant Staphylococcus sciuri. In addition to that, he SARS-CoV PCR in the hospital. Presumably this is nosocomial infection acquired either in the hospital or at rehab. He is starting to get worse now and now I am going to go ahead and get started with remdesivir. He is on corticosteroids already. Continue the daptomycin for the Staphylococcus sciuri. The reason for daptomycin use is because of the allergy to vancomycin. Job ID: [id number] [facility]
[2020-08-23] MEDS ORDERED: Labetalol HCl 100 MG/20 ML VIAL SLOW IVP SCH (16:00)
[2020-08-23] MEDS ORDERED: Furosemide 40 MG/4 ML VIAL SLOW IVP SCH (17:00)
--- NOTE | 2020-08-23 17:08 | PDOC.BPN ---
- Brief Progress Note Encounter Date: 08/23/20 Encounter Time: 17:07 CXR adverse . see ID progress note. also gave lasix 40mg IVP
[2020-08-23] MEDS: Melatonin 3 MG TAB PO SCH (20:53)
[2020-08-23] MEDS: Guaifenesin DM 100-10/5 ML UDCUP PO PRN (21:01)
[2020-08-24] MEDS: Albuterol 200 PUFF (6.7GM INHALER) INH SCH ×6 (02:30→20:29)
[2020-08-24] MEDS: HumaLOG 300 UNITS/3 ML VIAL SC PRN ×4 (05:09→20:30)
[2020-08-24 06:46] LABS: Anion Gap 10 mmol/L (10-20); BUN (Urea Nitrogen) 15 mg/dL (8.4-25.7); Calc. Creatinine Clearance 166 mL/min (70-130); Calcium 8.4 mg/dL (7.8-10.44); Carbon Dioxide 30 mmol/L (22-29); Chloride 100 mmol/L (98-107); Estimated GFR-MDRD Greater than 90; Glucose 294 mg/dL (70-105); Potassium 3.7 mmol/L (3.5-5.1); Sodium 136 mmol/L (136-145)
[2020-08-24 06:47] LABS: ALT (SGPT) 28 U/L (8-55); AST (SGOT) 46 U/L (5-34); Albumin 2.1 g/dL (3.5-5.0); Alkaline Phosphatase 166 U/L (40-110); Bilirubin, Direct 3.4 mg/dL (0.1-0.3); Bilirubin, Total 9.1 mg/dL (0.2-1.2); CRP (Inflammatory) Less than 0.50 mg/dL (= or < 0.5); Protein, Total 5.8 g/dL (6.0-8.3)
[2020-08-24 06:53] LABS: Anisocytosis MODERATE=16-30 cells (100X) (0-5/hpf); Band 7 % (5-11); Elliptocytes SLIGHT = 2-5 cells (100X) (0-1/hpf); Hemoglobin 9.3 g/dL (14.0-18.0); Lymphocytes 11 % (21-51); MDiff Complete? YES; Mean Corpuscular HGB CONC 30.5 g/dL (32.0-36.0); Mean Corpuscular Hemoglobin 25.3 pg (27.0-31.0); Mean Corpuscular Volume 83.1 fL (78.0-98.0); Mean Platelet Volume 6.4 fL (7.4-10.4); Monocytes 8 % (0-10); Neutrophil 74 % (42-75); Platelet Count 74 thou/uL (130-400); Platelet Morphology Comment Appears Decreased; Poikilocytosis SLIGHT = 6-15 cells (100X) (0-5/hpf); RBC Distribution Width 27.9 % (11.5-14.5); Red Blood Cell (RBC) Count 3.66 mill/uL (4.70-6.10); Schistocytes SLIGHT = 2-5 cells (100X) (0-1/hpf); White Blood Cell (WBC) Count 5.3 thou/uL (4.8-10.8)
[2020-08-24] MEDS: Sucralfate 1 GM/10 ML UDCUP PO PRN (08:31)
[2020-08-24] MEDS: Bupropion 150 MG XL TAB PO SCH (08:31)
[2020-08-24] MEDS: Sodium Chloride 1 GM TAB PO SCH ×2 (08:31→20:27)
[2020-08-24] MEDS: Propranolol 10 MG TAB PO SCH (08:31)
[2020-08-24] MEDS: Escitalopram Oxalate 20 mg Tablet PO SCH (08:32)
[2020-08-24] MEDS: Citrucel 500 MG TAB PO SCH (08:32)
[2020-08-24] MEDS: Multivit, Chewable SF 1 TAB PO SCH (08:32)
[2020-08-24] MEDS: Furosemide 40 MG TAB PO SCH (08:32)
[2020-08-24] MEDS: Gabapentin 300 MG CAP PO SCH (08:32)
[2020-08-24] MEDS: Spironolactone 100 MG TAB PO SCH (08:33)
[2020-08-24] MEDS: methylPREDNISolone Sod Succ 40 MG VIAL IVP SCH (08:33)
[2020-08-24] MEDS: REMDESIVIR (EUA) 100 MG in Sodium Chloride 0.9% 250 ML 230 ML IV SCH (13:03)
[2020-08-24] MEDS: DAPTOmycin 500 MG in Sodium Chloride 0.9% 100 ML IVPB SCH (13:03)
--- NOTE | 2020-08-24 16:36 | PDOC.HOSPP ---
- Subjective Encounter Date: 08/24/20 - Objective Vital Signs & Weight: Vital Signs (12 hours) Pulse Ox 08/24/20 08:00 93 L Weight Admit Weight 210 lb 5 oz Weight 190 lb Most Recent Monitor Data Heart Rate from ECG 85 NIBP 108/50 NIBP BP-Mean 69 Respiration from ECG 30 SpO2 100 I&O: 08/23/20 08/24/20 08/25/20 06:59 06:59 06:59 Intake Total 1180 1862 Output Total 2100 2600 Balance -180 -485 Result Diagrams: 08/25/20 06:02 08/25/20 06:02 Additional Labs: Accuchecks 08/24/20 08/24/20 08/23/20 11:23 05:00 21:07 POC Glucose 357 H 331 H 257 H Hospitalist ROS - Medication Medications: Active Medications Generic Name Dose Route Start Last Admin Trade Name Freq PRN Reason Stop Dose Admin Acetaminophen 650 mg 08/10/20 10:40 08/23/20 20:53 Acetaminophen 325 Mg Tab PO 650 mg Q4H PRN Administration Headache/Fever/Mild Pain (1-3) Albuterol Sulfate 2 puff 08/18/20 18:30 08/24/20 13:03 Albuterol 200 Puff (6.7gm Inhaler) INH 2 puff [id number] HARPREET Administration Albuterol Sulfate 2 puff 08/18/20 15:28 08/24/20 05:11 Albuterol 200 Puff (6.7gm Inhaler) INH 2 puff Q4H PRN Administration SOB &/or Wheezing Bupropion HCl 150 mg 08/11/20 09:00 08/24/20 08:31 Bupropion 150 Mg Xl Tab PO 150 mg DAILY HARPREET Administration Escitalopram Oxalate 20 mg 08/11/20 09:00 08/24/20 08:32 Escitalopram Oxalate 20 Mg Tablet PO 20 mg DAILY HARPREET Administration Furosemide 40 mg 08/22/20 07:30 08/24/20 08:32 Furosemide 40 Mg Tab PO 40 mg DAILY-AC HARPREET Administration Gabapentin 300 mg 08/11/20 09:00 08/24/20 08:32 Gabapentin 300 Mg Cap PO 300 mg DAILY HARPREET Administration Guaifenesin/Dextromethorphan 15 ml 08/10/20 10:40 08/23/20 21:01 Guaifenesin Dm 100-10/5 Ml Udcup PO 15 ml Q4H PRN Administration Cough Daptomycin 500 mg/ Sodium 100 mls @ 200 mls/hr 08/22/20 14:00 08/24/20 13:03 Chloride IVPB 100 mls Q24HR HARPREET Administration Remdesivir 100 mg/ Sodium 250 mls @ 250 mls/hr 08/24/20 14:00 08/24/20 13:03 Chloride IV 08/27/20 14:59 250 mls 1400 HARPREET Administration Insulin Human Lispro 0 units 08/10/20 14:50 08/24/20 12:17 Humalog 300 Units/3 Ml Vial SC 6 unit .MILD SLIDING SCALE PRN Administration Mild Correctional Scale Insulin Human Lispro 0 units 08/10/20 14:50 08/23/20 21:29 Humalog 300 Units/3 Ml Vial SC 3 unit .BEDTIME SLIDING SC PRN Administration Bedtime Correctional Scale Melatonin 6 mg 08/11/20 21:00 08/23/20 20:53 Melatonin 3 Mg Tab PO 6 mg HS HARPREET Administration Methylcellulose 500 mg 08/16/20 09:00 08/24/20 08:32 Citrucel 500 Mg Tab PO 500 mg DAILY HARPREET Administration Methylprednisolone Sodium Succinate 40 mg 08/18/20 21:00 08/24/20 08:33 Methylprednisolone Sod Succ 40 Mg Vial IVP 40 mg BID HARPREET Administration Multivitamins 1 tab 08/11/20 09:00 08/24/20 08:32 Multivit, Chewable Sf 1 Tab PO 1 tab DAILY HARPREET Administration Propranolol HCl 10 mg 08/17/20 09:00 08/24/20 08:31 Propranolol 10 Mg Tab PO 10 mg DAILY HARPREET Administration Sodium Chloride 1 gm 08/12/20 09:00 08/24/20 08:31 Sodium Chloride 1 Gm Tab PO 1 gm BID HARPREET Administration Sodium Chloride 10 ml 08/12/20 09:00 08/24/20 08:34 Flush - Normal Saline 10 Ml Syringe IVF 10 ml Q12HR HARPREET Administration Sodium Chloride 10 ml 08/12/20 09:00 08/19/20 06:09 Flush - Normal Saline 10 Ml Syringe IVF 10 ml PRN PRN Administration Saline Flush Spironolactone 50 mg 08/22/20 08:00 08/24/20 08:33 Spironolactone 100 Mg Tab PO 50 mg QAM-WM HARPREET Administration Sucralfate 1 gm 08/10/20 14:47 08/24/20 08:31 Sucralfate 1 Gm/10 Ml Udcup PO 1 gm QID PRN Administration ODNYOPHAGIA - Exam General Appearance: awake alert ENT: normocephalic atraumatic Neck: supple, no JVD Heart: RRR Respiratory: CTAB, no tachypnea Gastrointestinal: soft Neurological: cranial nerve grossly intact, no focal deficits Hosp A/P (1) COVID-19 Code(s): U07.1 - COVID-19 Status: Acute (2) 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 Patient is on daptomycin. Enoxaparin for DVT prophylaxis.
[2020-08-24] MEDS: Melatonin 3 MG TAB PO SCH (20:27)
[2020-08-24] MEDS: Enoxaparin Sodium 30 MG/0.3 ML SYRINGE SC SCH (20:27)
[2020-08-25] MEDS: Acetaminophen 325 MG TAB PO PRN (01:16)
[2020-08-25] MEDS: Albuterol 200 PUFF (6.7GM INHALER) INH SCH ×6 (02:30→21:33)
[2020-08-25] MEDS ORDERED: ALPRAZolam 0.5 MG TAB PO SCH (03:30)
[2020-08-25] MEDS ORDERED: Furosemide 40 MG/4 ML VIAL ONE (05:40)
[2020-08-25 06:44] LABS: Band 2 % (5-11); Burr Cells SLIGHT = 2-5 cells (100X) (0-1/hpf); Elliptocytes SLIGHT = 2-5 cells (100X) (0-1/hpf); Hemoglobin 9.6 g/dL (14.0-18.0); Hypochromia SLIGHT = 6-15 cells (100X) (0-5/hpf); Lymphocytes 16 % (21-51); MDiff Complete? YES; Mean Corpuscular HGB CONC 29.9 g/dL (32.0-36.0); Mean Corpuscular Hemoglobin 24.9 pg (27.0-31.0); Mean Corpuscular Volume 83.1 fL (78.0-98.0); Mean Platelet Volume 6.7 fL (7.4-10.4); Monocytes 7 % (0-10); Neutrophil 75 % (42-75); Platelet Count 75 thou/uL (130-400); Platelet Morphology Comment Appears Decreased; RBC Distribution Width 28.3 % (11.5-14.5); Red Blood Cell (RBC) Count 3.84 mill/uL (4.70-6.10); Target Cells SLIGHT = 2-5 cells (100X) (0-1/hpf); White Blood Cell (WBC) Count 6.6 thou/uL (4.8-10.8)
[2020-08-25 06:50] LABS: ALT (SGPT) 33 U/L (8-55); AST (SGOT) 54 U/L (5-34); Albumin 2.1 g/dL (3.5-5.0); Alkaline Phosphatase 186 U/L (40-110); Anion Gap 8 mmol/L (10-20); BUN (Urea Nitrogen) 16 mg/dL (8.4-25.7); Bilirubin, Direct 3.6 mg/dL (0.1-0.3); Bilirubin, Total 9.1 mg/dL (0.2-1.2); CRP (Inflammatory) Less than 0.50 mg/dL (= or < 0.5); Calc. Creatinine Clearance 187 mL/min (70-130); Calcium 8.6 mg/dL (7.8-10.44); Carbon Dioxide 30 mmol/L (22-29); Chloride 100 mmol/L (98-107); Estimated GFR-MDRD Greater than 90; Glucose 167 mg/dL (70-105); Potassium 3.7 mmol/L (3.5-5.1); Protein, Total 5.8 g/dL (6.0-8.3); Sodium 134 mmol/L (136-145)
[2020-08-25] MEDS: Furosemide 40 MG TAB PO SCH (08:36)
[2020-08-25] MEDS: Spironolactone 100 MG TAB PO SCH (08:36)
[2020-08-25] MEDS: Gabapentin 300 MG CAP PO SCH (08:37)
[2020-08-25] MEDS: Citrucel 500 MG TAB PO SCH (08:37)
[2020-08-25] MEDS: Propranolol 10 MG TAB PO SCH (08:37)
[2020-08-25] MEDS: Sodium Chloride 1 GM TAB PO SCH ×2 (08:37→21:14)
[2020-08-25] MEDS: Escitalopram Oxalate 20 mg Tablet PO SCH (08:37)
[2020-08-25] MEDS: Multivit, Chewable SF 1 TAB PO SCH (08:37)
[2020-08-25] MEDS: Enoxaparin Sodium 30 MG/0.3 ML SYRINGE SC SCH ×2 (08:38→21:13)
[2020-08-25] MEDS: Dexamethasone 4 mg/ml Vial SLOW IVP SCH (08:38)
[2020-08-25] MEDS: Bupropion 150 MG XL TAB PO SCH (08:41)
--- NOTE | 2020-08-25 09:08 | RAD ---
CHEST ONE VIEW: INDICATIONS: Shortness of breath. COMPARISON: 08/23/2020 FINDINGS: Left-sided PICC line is stable appearing. Bilateral air space disease persists. Cardiomegaly is stabl e. Small bilateral pleural effusions persist. No pneumothorax is evident. ACDF is unchanged. IMPRESSION: Stable examination. POS: BH
[2020-08-25] MEDS: HumaLOG 300 UNITS/3 ML VIAL SC PRN ×2 (12:21→21:20)
--- NOTE | 2020-08-25 13:30 | PDOC.HOSPP ---
- Subjective Encounter Date: 08/25/20 Subjective: The patient has been in respiratory distress this morning. - Objective Vital Signs & Weight: Vital Signs (12 hours) Temp Pulse Resp BP Pulse Ox 08/25/20 08:31 99 08/25/20 08:00 98 08/25/20 03:46 98.1 F 88 22 H 102/53 L 96 08/25/20 02:44 95 08/25/20 01:40 95 Weight Admit Weight 210 lb 5 oz Weight 190 lb Most Recent Monitor Data Heart Rate from ECG 85 NIBP 108/50 NIBP BP-Mean 69 Respiration from ECG 30 SpO2 100 I&O: 08/24/20 08/25/20 08/26/20 06:59 06:59 06:59 Intake Total 5962 1507 Output Total 9967 5978 Balance -622 -3576 Result Diagrams: 08/25/20 06:02 08/25/20 06:02 Additional Labs: Accuchecks 08/25/20 05:19 POC Glucose 173 H Hospitalist ROS - Medication Medications: Active Medications Generic Name Dose Route Start Last Admin Trade Name Freq PRN Reason Stop Dose Admin Acetaminophen 650 mg 08/10/20 10:40 08/25/20 01:16 Acetaminophen 325 Mg Tab PO 650 mg Q4H PRN Administration Headache/Fever/Mild Pain (1-3) Albuterol Sulfate 2 puff 08/18/20 18:30 08/25/20 08:42 Albuterol 200 Puff (6.7gm Inhaler) INH 2 puff [id number] HARPREET Administration Albuterol Sulfate 2 puff 08/18/20 15:28 08/24/20 05:11 Albuterol 200 Puff (6.7gm Inhaler) INH 2 puff Q4H PRN Administration SOB &/or Wheezing Bupropion HCl 150 mg 08/11/20 09:00 08/25/20 08:41 Bupropion 150 Mg Xl Tab PO 150 mg DAILY HARPREET Administration Dexamethasone 6 mg 08/25/20 09:00 08/25/20 08:38 Dexamethasone 4 Mg/Ml Vial SLOW IVP 6 mg DAILY HARPREET Administration Enoxaparin Sodium 30 mg 08/24/20 21:00 08/25/20 08:38 Enoxaparin Sodium 30 Mg/0.3 Ml Syringe SC 30 mg 0900,2099 HARPREET Administration Escitalopram Oxalate 20 mg 08/11/20 09:00 08/25/20 08:37 Escitalopram Oxalate 20 Mg Tablet PO 20 mg DAILY HARPREET Administration Furosemide 40 mg 08/22/20 07:30 08/25/20 08:36 Furosemide 40 Mg Tab PO 40 mg DAILY-AC HARPREET Administration Gabapentin 300 mg 08/11/20 09:00 08/25/20 08:37 Gabapentin 300 Mg Cap PO 300 mg DAILY HARPREET Administration Guaifenesin/Dextromethorphan 15 ml 08/10/20 10:40 08/23/20 21:01 Guaifenesin Dm 100-10/5 Ml Udcup PO 15 ml Q4H PRN Administration Cough Daptomycin 500 mg/ Sodium 100 mls @ 200 mls/hr 08/22/20 14:00 08/24/20 13:03 Chloride IVPB 100 mls Q24HR HARPREET Administration Remdesivir 100 mg/ Sodium 250 mls @ 250 mls/hr 08/24/20 14:00 08/24/20 13:03 Chloride IV 08/27/20 14:59 250 mls 1400 HARPREET Administration Insulin Human Lispro 0 units 08/10/20 14:50 08/25/20 12:21 Humalog 300 Units/3 Ml Vial SC 6 unit .MILD SLIDING SCALE PRN Administration Mild Correctional Scale Insulin Human Lispro 0 units 08/10/20 14:50 08/24/20 20:30 Humalog 300 Units/3 Ml Vial SC 5 unit .BEDTIME SLIDING SC PRN Administration Bedtime Correctional Scale Melatonin 6 mg 08/11/20 21:00 08/24/20 20:27 Melatonin 3 Mg Tab PO 6 mg HS HARPREET Administration Methylcellulose 500 mg 08/16/20 09:00 08/25/20 08:37 Citrucel 500 Mg Tab PO 500 mg DAILY HARPREET Administration Multivitamins 1 tab 08/11/20 09:00 08/25/20 08:37 Multivit, Chewable Sf 1 Tab PO 1 tab DAILY HARPREET Administration Propranolol HCl 10 mg 08/17/20 09:00 08/25/20 08:37 Propranolol 10 Mg Tab PO 10 mg DAILY HARPREET Administration Sodium Chloride 1 gm 08/12/20 09:00 08/25/20 08:37 Sodium Chloride 1 Gm Tab PO 1 gm BID HARPREET Administration Sodium Chloride 10 ml 08/12/20 09:00 11/15/20 08:40 Flush - Normal Saline 10 Ml Syringe IVF 10 ml Q12HR HARPREET Administration Sodium Chloride 10 ml 08/12/20 09:00 08/19/20 06:09 Flush - Normal Saline 10 Ml Syringe IVF 10 ml PRN PRN Administration Saline Flush Spironolactone 50 mg 08/22/20 08:00 08/25/20 08:36 Spironolactone 100 Mg Tab PO 50 mg QAM-WM AHRPREET Administration Sucralfate 1 gm 08/10/20 14:47 08/24/20 08:31 Sucralfate 1 Gm/10 Ml Udcup PO 1 gm QID PRN Administration ODNYOPHAGIA - Exam ENT: normocephalic atraumatic Neck: supple, no JVD Heart: RRR Respiratory: normal chest expansion, no tachypnea Gastrointestinal: soft, non-tender, non-distended Neurological: cranial nerve grossly intact, no new deficit Hosp A/P (1) COVID-19 Code(s): U07.1 - COVID-19 Status: Acute (2) 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 He is now on high flow nasal cannula due to respiratory distress this morning. 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 Patient is on daptomycin. Enoxaparin for DVT prophylaxis.
[2020-08-25] MEDS: REMDESIVIR (EUA) 100 MG in Sodium Chloride 0.9% 250 ML 230 ML IV SCH (14:12)
[2020-08-25] MEDS: DAPTOmycin 500 MG in Sodium Chloride 0.9% 100 ML IVPB SCH (14:13)
[2020-08-25] MEDS: Melatonin 3 MG TAB PO SCH (21:13)
[2020-08-26] MEDS: Albuterol 200 PUFF (6.7GM INHALER) INH SCH ×6 (03:11→22:33)
[2020-08-26] MEDS: HumaLOG 300 UNITS/3 ML VIAL SC PRN ×4 (05:46→20:15)
[2020-08-26 06:41] LABS: Mean Corpuscular HGB CONC 30.4 g/dL (32.0-36.0); Mean Corpuscular Hemoglobin 25.1 pg (27.0-31.0); Mean Corpuscular Volume 82.6 fL (78.0-98.0); Mean Platelet Volume 7.3 fL (7.4-10.4); Platelet Count 60 thou/uL (130-400); RBC Distribution Width 27.9 % (11.5-14.5); Red Blood Cell (RBC) Count 3.56 mill/uL (4.70-6.10); White Blood Cell (WBC) Count 4.5 thou/uL (4.8-10.8)
[2020-08-26 07:08] LABS: ALT (SGPT) 37 U/L (8-55); AST (SGOT) 51 U/L (5-34); Alkaline Phosphatase 230 U/L (40-110); Anion Gap 8 mmol/L (10-20); BUN (Urea Nitrogen) 16 mg/dL (8.4-25.7); Bilirubin, Direct 3.1 mg/dL (0.1-0.3); Bilirubin, Total 7.6 mg/dL (0.2-1.2); CRP (Inflammatory) Less than 0.50 mg/dL (= or < 0.5); Calc. Creatinine Clearance 181 mL/min (70-130); Calcium 8.7 mg/dL (7.8-10.44); Carbon Dioxide 32 mmol/L (22-29); Chloride 101 mmol/L (98-107); Estimated GFR-MDRD Greater than 90; Glucose 322 mg/dL (70-105); Potassium 3.7 mmol/L (3.5-5.1); Protein, Total 5.4 g/dL (6.0-8.3); Sodium 137 mmol/L (136-145)
[2020-08-26] MEDS: Escitalopram Oxalate 20 mg Tablet PO SCH (09:35)
[2020-08-26] MEDS: Gabapentin 300 MG CAP PO SCH (09:36)
[2020-08-26] MEDS: Dexamethasone 4 mg/ml Vial SLOW IVP SCH (09:36)
[2020-08-26] MEDS: Furosemide 40 MG TAB PO SCH (09:36)
[2020-08-26] MEDS: Multivit, Chewable SF 1 TAB PO SCH (09:37)
[2020-08-26] MEDS: Sodium Chloride 1 GM TAB PO SCH ×2 (09:38→20:01)
[2020-08-26] MEDS: Propranolol 10 MG TAB PO SCH (09:38)
[2020-08-26] MEDS: Citrucel 500 MG TAB PO SCH (09:38)
[2020-08-26 09:39] LABS: Anisocytosis MARKED = >30 cells (100X) (0-5/hpf); Band 3 % (5-11); Bite Cells SLIGHT = 2-5 cells (100X) (0-1/hpf); Burr Cells SLIGHT = 2-5 cells (100X) (0-1/hpf); Hypochromia SLIGHT = 6-15 cells (100X) (0-5/hpf); Lymphocytes 10 % (21-51); MDiff Complete? YES; Monocytes 7 % (0-10); Neutrophil 79 % (42-75); Polychromasia SLIGHT = 2-3 cells (100X) (0-2/hpf); Reactive Lymphocytes 1 % (0-10); Schistocytes SLIGHT = 2-5 cells (100X) (0-1/hpf)
[2020-08-26] MEDS: Spironolactone 100 MG TAB PO SCH (09:39)
[2020-08-26] MEDS: Enoxaparin Sodium 30 MG/0.3 ML SYRINGE SC SCH ×2 (09:48→20:01)
[2020-08-26] MEDS: Bupropion 150 MG XL TAB PO SCH (09:48)
--- NOTE | 2020-08-26 14:52 | PRG ---
DATE OF SERVICE: 08/26/2020 SUBJECTIVE: Some tachypnea. No abdominal pain. No diarrhea. OBJECTIVE: VITAL SIGNS: He has been afebrile, his respiratory rate is anywhere from 18 to 24 at times, O2 sats ranging from 93% to 99% depending on activity. He was on high-flow nasal cannula earlier, but now he is on 4 L nasal cannula. Blood pressure normal. LUNGS: With scattered inspiratory crackles. HEART: S1 and S2, regular rate. ABDOMEN: Soft, not distended. LABORATORY DATA: Sodium 137, creatinine 0.59, direct bilirubin 3.1, AST 51, albumin 2.0, and alkaline phosphatase 230. ASSESSMENT AND DISCUSSION: Cirrhosis due to alcoholism, type 2 diabetes, chronic pancreatitis, episodes of bacteremia and now Staphylococcus sciuri bacteremia with aortic valve endocarditis. Two different strains. The first was methicillin sensitive, but the current one is methicillin resistant. In addition to that, he acquired SARS-CoV PCR positive infection with possible nosocomial transmission. He is on remdesivir and Decadron and is continued on daptomycin for the Staphylococcus sciuri. Job ID: [id number]
--- NOTE | 2020-08-26 15:45 | PDOC.HOSPP ---
- Subjective Encounter Date: 08/26/20 - Objective Vital Signs & Weight: Vital Signs (12 hours) Temp Pulse Resp BP BP Pulse Ox 08/26/20 12:56 98.1 F 90 18 121/55 L 93 L 08/26/20 08:00 97 08/26/20 07:26 98.0 F 84 24 H 119/55 L 99 08/26/20 05:00 97.8 F 86 20 115/49 L 96 Weight Admit Weight 210 lb 5 oz Weight 190 lb Most Recent Monitor Data Heart Rate from ECG 85 NIBP 108/50 NIBP BP-Mean 69 Respiration from ECG 30 SpO2 100 I&O: 08/25/20 08/26/20 08/27/20 06:59 06:59 06:59 Intake Total 1507 400 Output Total 3125 1200 Balance -2708 800 Result Diagrams: 08/26/20 05:51 08/26/20 05:51 Additional Labs: Accuchecks 08/26/20 08/26/20 08/25/20 12:00 05:44 21:18 POC Glucose 341 H 308 H 419 H 08/25/20 08/24/20 08/24/20 12:06 20:34 16:40 POC Glucose 355 H 375 H 368 H Hospitalist ROS - Medication Medications: Active Medications Generic Name Dose Route Start Last Admin Trade Name Freq PRN Reason Stop Dose Admin Acetaminophen 650 mg 08/10/20 10:40 08/25/20 01:16 Acetaminophen 325 Mg Tab PO 650 mg Q4H PRN Administration Headache/Fever/Mild Pain (1-3) Albuterol Sulfate 2 puff 08/18/20 18:30 08/26/20 09:50 Albuterol 200 Puff (6.7gm Inhaler) INH 2 puff [id number] HARPREET Administration Albuterol Sulfate 2 puff 08/18/20 15:28 08/24/20 05:11 Albuterol 200 Puff (6.7gm Inhaler) INH 2 puff Q4H PRN Administration SOB &/or Wheezing Bupropion HCl 150 mg 08/11/20 09:00 08/26/20 09:48 Bupropion 150 Mg Xl Tab PO 150 mg DAILY HARPREET Administration Dexamethasone 6 mg 08/25/20 09:00 08/26/20 09:36 Dexamethasone 4 Mg/Ml Vial SLOW IVP 6 mg DAILY HARPREET Administration Enoxaparin Sodium 30 mg 08/24/20 21:00 08/26/20 09:48 Enoxaparin Sodium 30 Mg/0.3 Ml Syringe SC Not Given HARPREET Escitalopram Oxalate 20 mg 08/11/20 09:00 08/26/20 09:35 Escitalopram Oxalate 20 Mg Tablet PO 20 mg DAILY HARPREET Administration Furosemide 40 mg 08/22/20 07:30 08/26/20 09:36 Furosemide 40 Mg Tab PO 40 mg DAILY-AC HARPREET Administration Gabapentin 300 mg 08/11/20 09:00 08/26/20 09:36 Gabapentin 300 Mg Cap PO 300 mg DAILY HARPREET Administration Guaifenesin/Dextromethorphan 15 ml 08/10/20 10:40 08/23/20 21:01 Guaifenesin Dm 100-10/5 Ml Udcup PO 15 ml Q4H PRN Administration Cough Daptomycin 500 mg/ Sodium 100 mls @ 200 mls/hr 08/22/20 14:00 08/25/20 14:13 Chloride IVPB 100 mls Q24HR HARPREET Administration Remdesivir 100 mg/ Sodium 250 mls @ 250 mls/hr 08/24/20 14:00 08/25/20 14:12 Chloride IV 08/27/20 14:59 250 mls 1400 HARPREET Administration Insulin Human Lispro 0 units 08/10/20 14:50 08/26/20 12:48 Humalog 300 Units/3 Ml Vial SC 5 unit .MILD SLIDING SCALE PRN Administration Mild Correctional Scale Insulin Human Lispro 0 units 08/10/20 14:50 08/25/20 21:20 Humalog 300 Units/3 Ml Vial SC 5 unit .BEDTIME SLIDING SC PRN Administration Bedtime Correctional Scale Melatonin 6 mg 08/11/20 21:00 08/25/20 21:13 Melatonin 3 Mg Tab PO 6 mg HS HARPREET Administration Methylcellulose 500 mg 08/16/20 09:00 08/26/20 09:38 Citrucel 500 Mg Tab PO 500 mg DAILY HARPREET Administration Multivitamins 1 tab 08/11/20 09:00 08/26/20 09:37 Multivit, Chewable Sf 1 Tab PO 1 tab DAILY HARPREET Administration Propranolol HCl 10 mg 08/17/20 09:00 08/26/20 09:38 Propranolol 10 Mg Tab PO 10 mg DAILY HARPREET Administration Sodium Chloride 1 gm 08/12/20 09:00 08/26/20 09:38 Sodium Chloride 1 Gm Tab PO 1 gm BID HARPREET Administration Sodium Chloride 10 ml 08/12/20 09:00 08/26/20 09:43 Flush - Normal Saline 10 Ml Syringe IVF 10 ml Q12HR HARPREET Administration Sodium Chloride 10 ml 08/12/20 09:00 08/19/20 06:09 Flush - Normal Saline 10 Ml Syringe IVF 10 ml PRN PRN Administration Saline Flush Spironolactone 50 mg 08/22/20 08:00 08/26/20 09:39 Spironolactone 100 Mg Tab PO 50 mg QAM-WM HARPREET Administration Sucralfate 1 gm 08/10/20 14:47 08/24/20 08:31 Sucralfate 1 Gm/10 Ml Udcup PO 1 gm QID PRN Administration ODNYOPHAGIA - Exam General Appearance: awake alert Neck: supple, no JVD Respiratory: no tachypnea, rhonchi Extremities: no cyanosis, no clubbing Hosp A/P (1) COVID-19 Code(s): U07.1 - COVID-19 Status: Acute (2) 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 Oxygen requirements improving. Blood sugar is uncontrolled. Add Lantus 15 units nightly. 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 Patient is on daptomycin. Enoxaparin for DVT prophylaxis.
[2020-08-26] MEDS: REMDESIVIR (EUA) 100 MG in Sodium Chloride 0.9% 250 ML 230 ML IV SCH (16:13)
[2020-08-26] MEDS: DAPTOmycin 500 MG in Sodium Chloride 0.9% 100 ML IVPB SCH (18:30)
[2020-08-26] MEDS: Melatonin 3 MG TAB PO SCH (20:01)
[2020-08-26] MEDS ORDERED: Insulin Glargine 15 UNITS in Pre-Filled Syringe 1 EACH SC SCH (21:00)
[2020-08-27] MEDS: Albuterol 200 PUFF (6.7GM INHALER) INH SCH ×6 (02:59→22:58)
[2020-08-27] MEDS: HumaLOG 300 UNITS/3 ML VIAL SC PRN ×4 (05:32→20:48)
[2020-08-27 06:25] LABS: Band 1 % (5-11); Eosinophils 1 % (0-10); Lymphocytes 15 % (21-51); MDiff Complete? YES; Mean Corpuscular HGB CONC 29.2 g/dL (32.0-36.0); Mean Corpuscular Hemoglobin 24.8 pg (27.0-31.0); Mean Platelet Volume 7.4 fL (7.4-10.4); Monocytes 10 % (0-10); Neutrophil 73 % (42-75); Platelet Count 82 thou/uL (130-400); Platelet Morphology Comment Appears Decreased; RBC Distribution Width 28.3 % (11.5-14.5); Red Blood Cell (RBC) Count 3.64 mill/uL (4.70-6.10); White Blood Cell (WBC) Count 7.4 thou/uL (4.8-10.8)
[2020-08-27 06:37] LABS: ALT (SGPT) 45 U/L (8-55); AST (SGOT) 61 U/L (5-34); Alkaline Phosphatase 255 U/L (40-110); Anion Gap 12 mmol/L (10-20); BUN (Urea Nitrogen) 14 mg/dL (8.4-25.7); Bilirubin, Total 8.2 mg/dL (0.2-1.2); CRP (Inflammatory) Less than 0.50 mg/dL (= or < 0.5); Calc. Creatinine Clearance 184 mL/min (70-130); Calcium 8.4 mg/dL (7.8-10.44); Carbon Dioxide 25 mmol/L (22-29); Chloride 100 mmol/L (98-107); Estimated GFR-MDRD Greater than 90; Glucose 255 mg/dL (70-105); Potassium 3.7 mmol/L (3.5-5.1); Protein, Total 5.6 g/dL (6.0-8.3); Sodium 133 mmol/L (136-145)
[2020-08-27] MEDS: Gabapentin 300 MG CAP PO SCH (09:04)
[2020-08-27] MEDS: Furosemide 40 MG TAB PO SCH (09:04)
[2020-08-27] MEDS: Dexamethasone 4 mg/ml Vial SLOW IVP SCH (09:05)
[2020-08-27] MEDS: Escitalopram Oxalate 20 mg Tablet PO SCH (09:05)
[2020-08-27] MEDS: Citrucel 500 MG TAB PO SCH (09:07)
[2020-08-27] MEDS: Sodium Chloride 1 GM TAB PO SCH ×2 (09:07→20:42)
[2020-08-27] MEDS: Enoxaparin Sodium 30 MG/0.3 ML SYRINGE SC SCH ×2 (09:08→20:43)
[2020-08-27] MEDS: Propranolol 10 MG TAB PO SCH (09:12)
[2020-08-27] MEDS: Multivit, Chewable SF 1 TAB PO SCH (09:12)
[2020-08-27] MEDS: Spironolactone 100 MG TAB PO SCH (09:12)
[2020-08-27] MEDS: Bupropion 150 MG XL TAB PO SCH (09:14)
[2020-08-27] MEDS: DAPTOmycin 500 MG in Sodium Chloride 0.9% 100 ML IVPB SCH (14:42)
[2020-08-27] MEDS: REMDESIVIR (EUA) 100 MG in Sodium Chloride 0.9% 250 ML 230 ML IV SCH (14:42)
--- NOTE | 2020-08-27 15:25 | PDOC.HOSPP ---
- Subjective Encounter Date: 08/27/20 Subjective: Denies any new complaints. - Objective Vital Signs & Weight: Vital Signs (12 hours) Temp Pulse Resp BP Pulse Ox 08/27/20 12:15 97.8 F 79 20 121/40 L 100 08/27/20 08:14 97.5 F L 80 20 120/58 L 94 L 08/27/20 08:00 94 L Weight Admit Weight 210 lb 5 oz Weight 190 lb Most Recent Monitor Data Heart Rate from ECG 85 NIBP 108/50 NIBP BP-Mean 69 Respiration from ECG 30 SpO2 100 I&O: 08/26/20 08/27/20 08/28/20 06:59 06:59 06:59 Intake Total 400 1840 Output Total 1200 2650 Balance -800 -810 Result Diagrams: 08/27/20 05:55 08/27/20 05:55 Additional Labs: Accuchecks 08/27/20 08/27/20 08/26/20 12:02 05:27 20:08 POC Glucose 359 H 254 H 370 H 08/26/20 16:20 POC Glucose 420 H Hospitalist ROS - Medication Medications: Active Medications Generic Name Dose Route Start Last Admin Trade Name Freq PRN Reason Stop Dose Admin Acetaminophen 650 mg 08/10/20 10:40 08/25/20 01:16 Acetaminophen 325 Mg Tab PO 650 mg Q4H PRN Administration Headache/Fever/Mild Pain (1-3) Albuterol Sulfate 2 puff 08/18/20 18:30 08/27/20 14:42 Albuterol 200 Puff (6.7gm Inhaler) INH 2 puff [id number] HARPREET Administration Albuterol Sulfate 2 puff 08/18/20 15:28 08/24/20 05:11 Albuterol 200 Puff (6.7gm Inhaler) INH 2 puff Q4H PRN Administration SOB &/or Wheezing Bupropion HCl 150 mg 08/11/20 09:00 08/27/20 09:14 Bupropion 150 Mg Xl Tab PO 150 mg DAILY HARPREET Administration Dexamethasone 6 mg 08/25/20 09:00 08/27/20 09:05 Dexamethasone 4 Mg/Ml Vial SLOW IVP 6 mg DAILY HARPREET Administration Enoxaparin Sodium 30 mg 08/24/20 21:00 08/27/20 09:08 Enoxaparin Sodium 30 Mg/0.3 Ml Syringe SC 30 mg 0900,2100 HARPREET Administration Escitalopram Oxalate 20 mg 08/11/20 09:00 08/27/20 09:05 Escitalopram Oxalate 20 Mg Tablet PO 20 mg DAILY HARPREET Administration Furosemide 40 mg 08/22/20 07:30 08/27/20 09:04 Furosemide 40 Mg Tab PO 40 mg DAILY-AC HARPREET Administration Gabapentin 300 mg 08/11/20 09:00 08/27/20 09:04 Gabapentin 300 Mg Cap PO 300 mg DAILY HARPREET Administration Guaifenesin/Dextromethorphan 15 ml 08/10/20 10:40 08/23/20 21:01 Guaifenesin Dm 100-10/5 Ml Udcup PO 15 ml Q4H PRN Administration Cough Daptomycin 500 mg/ Sodium 100 mls @ 200 mls/hr 08/22/20 14:00 08/27/20 14:42 Chloride IVPB 100 mls Q24HR HARPREET Administration Insulin Glargine 15 units/ 0.15 mls @ 0 mls/hr 08/26/20 21:00 08/26/20 20:02 Miscellaneous Medication SC 0.15 mls HS HARPREET Administration Insulin Human Lispro 0 units 08/10/20 14:50 08/27/20 12:28 Humalog 300 Units/3 Ml Vial SC 6 unit .MILD SLIDING SCALE PRN Administration Mild Correctional Scale Insulin Human Lispro 0 units 08/10/20 14:50 08/26/20 20:15 Humalog 300 Units/3 Ml Vial SC 5 unit .BEDTIME SLIDING SC PRN Administration Bedtime Correctional Scale Melatonin 6 mg 08/11/20 21:00 08/26/20 20:01 Melatonin 3 Mg Tab PO 6 mg HS HARPREET Administration Methylcellulose 500 mg 08/16/20 09:00 08/27/20 09:07 Citrucel 500 Mg Tab PO 500 mg DAILY HARPREET Administration Multivitamins 1 tab 08/11/20 09:00 08/27/20 09:12 Multivit, Chewable Sf 1 Tab PO 1 tab DAILY HARPREET Administration Propranolol HCl 10 mg 08/17/20 09:00 08/27/20 09:12 Propranolol 10 Mg Tab PO 10 mg DAILY HARPREET Administration Sodium Chloride 1 gm 08/12/20 09:00 08/27/20 09:07 Sodium Chloride 1 Gm Tab PO 1 gm BID HARPREET Administration Sodium Chloride 10 ml 08/12/20 09:00 08/27/20 09:08 Flush - Normal Saline 10 Ml Syringe IVF 10 ml Q12HR HARPREET Administration Sodium Chloride 10 ml 08/12/20 09:00 08/19/20 06:09 Flush - Normal Saline 10 Ml Syringe IVF 10 ml PRN PRN Administration Saline Flush Spironolactone 50 mg 08/22/20 08:00 08/27/20 09:12 Spironolactone 100 Mg Tab PO 50 mg QAM-WM HARPREET Administration Sucralfate 1 gm 08/10/20 14:47 08/24/20 08:31 Sucralfate 1 Gm/10 Ml Udcup PO 1 gm QID PRN Administration ODNYOPHAGIA - Exam General Appearance: awake alert ENT: normocephalic atraumatic Neck: supple, no JVD Heart: RRR Respiratory: normal chest expansion, no tachypnea Gastrointestinal: soft Neurological: cranial nerve grossly intact, no focal deficits Hosp A/P (1) COVID-19 Code(s): U07.1 - COVID-19 Status: Acute (2) 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 Code(s): I33.0 - ACUTE AND SUBACUTE INFECTIVE ENDOCARDITIS; B95.8 - UNSP STAPHYLOCOCCUS THE CAUSE OF DISEASES CLASSD ELSWHR Status: Acute (3) DM type 2 (diabetes mellitus, type 2) Status: Chronic Qualifiers: Diabetes mellitus long-term insulin use: without long-term use Diabetes mellitus complication status: without complication Qualified Code(s): E11.9 - Type 2 diabetes mellitus without complications - Plan The patient is on dexamethasone and remdesivir for COVID-19 with hypoxia. Oxygen requirements improving. Decrease supplemental O2 to 3 L. Blood sugar is uncontrolled. Increase evening Lantus to 25 units. 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 Patient is on daptomycin. Enoxaparin for DVT prophylaxis.
[2020-08-27] MEDS: Melatonin 3 MG TAB PO SCH (20:41)
[2020-08-27] MEDS: Insulin Glargine 25 UNITS in Pre-Filled Syringe 1 EACH SC SCH (22:58)
[2020-08-28] MEDS: Albuterol 200 PUFF (6.7GM INHALER) INH SCH ×6 (02:24→22:35)
[2020-08-28] MEDS: HumaLOG 300 UNITS/3 ML VIAL SC PRN ×4 (06:08→20:23)
[2020-08-28 06:48] LABS: Hemoglobin 8.7 g/dL (14.0-18.0); Mean Corpuscular HGB CONC 30.9 g/dL (32.0-36.0); Mean Corpuscular Hemoglobin 26.3 pg (27.0-31.0); Mean Corpuscular Volume 84.9 fL (78.0-98.0); Mean Platelet Volume 6.3 fL (7.4-10.4); Platelet Count 54 thou/uL (130-400); RBC Distribution Width 28.2 % (11.5-14.5); White Blood Cell (WBC) Count 5.8 thou/uL (4.8-10.8)
[2020-08-28 07:05] LABS: ALT (SGPT) 45 U/L (8-55); AST (SGOT) 52 U/L (5-34); Albumin 1.9 g/dL (3.5-5.0); Alkaline Phosphatase 228 U/L (40-110); Anion Gap 9 mmol/L (10-20); BUN (Urea Nitrogen) 11 mg/dL (8.4-25.7); Bilirubin, Direct 2.9 mg/dL (0.1-0.3); Bilirubin, Total 7.7 mg/dL (0.2-1.2); CRP (Inflammatory) Less than 0.50 mg/dL (= or < 0.5); Calc. Creatinine Clearance 190 mL/min (70-130); Calcium 8.1 mg/dL (7.8-10.44); Carbon Dioxide 28 mmol/L (22-29); Chloride 100 mmol/L (98-107); Estimated GFR-MDRD Greater than 90; Glucose 222 mg/dL (70-105); Potassium 3.3 mmol/L (3.5-5.1); Protein, Total 5.1 g/dL (6.0-8.3); Sodium 134 mmol/L (136-145)
[2020-08-28 08:16] LABS: Anisocytosis MODERATE=16-30 cells (100X) (0-5/hpf); Bite Cells SLIGHT = 2-5 cells (100X) (0-1/hpf); Burr Cells SLIGHT = 2-5 cells (100X) (0-1/hpf); Hypochromia SLIGHT = 6-15 cells (100X) (0-5/hpf); Lymphocytes 24 % (21-51); MDiff Complete? YES; Monocytes 6 % (0-10); Neutrophil 66 % (42-75); Nucleated RBC 1 % (0); Platelet Morphology Comment Appears Decreased; Polychromasia MODERATE = 3-4 cells (100X) (0-2/hpf); Reactive Lymphocytes 4 % (0-10); Schistocytes MODERATE= 6-15 cells (100X) (0-1/hpf)
[2020-08-28] MEDS: Sodium Chloride 1 GM TAB PO SCH ×2 (09:31→20:09)
[2020-08-28] MEDS: Escitalopram Oxalate 20 mg Tablet PO SCH (09:31)
[2020-08-28] MEDS: Gabapentin 300 MG CAP PO SCH (09:31)
[2020-08-28] MEDS: Furosemide 40 MG TAB PO SCH (09:31)
[2020-08-28] MEDS: Citrucel 500 MG TAB PO SCH (09:31)
[2020-08-28] MEDS: Enoxaparin Sodium 30 MG/0.3 ML SYRINGE SC SCH ×2 (09:32→20:08)
[2020-08-28] MEDS: Propranolol 10 MG TAB PO SCH (09:37)
[2020-08-28] MEDS: Multivit, Chewable SF 1 TAB PO SCH (09:38)
[2020-08-28] MEDS: Bupropion 150 MG XL TAB PO SCH (09:38)
[2020-08-28] MEDS: Spironolactone 100 MG TAB PO SCH (09:38)
[2020-08-28] MEDS: Dexamethasone 4 mg/ml Vial SLOW IVP SCH (09:39)
[2020-08-28] MEDS: DAPTOmycin 500 MG in Sodium Chloride 0.9% 100 ML IVPB SCH (16:24)
[2020-08-28] MEDS: Insulin Glargine 25 UNITS in Pre-Filled Syringe 1 EACH SC SCH (20:08)
[2020-08-28] MEDS: Melatonin 3 MG TAB PO SCH (20:08)
--- NOTE | 2020-08-28 20:41 | PDOC.HOSPP ---
- Subjective Encounter Date: 08/28/20 - Objective Vital Signs & Weight: Vital Signs (12 hours) Temp Pulse Resp BP Pulse Ox Pulse Ox Pulse Ox 08/28/20 20:05 97.9 F 89 20 130/52 L 97 08/28/20 16:42 97.6 F 82 18 110/33 L 94 L 08/28/20 16:00 94 L 96 08/28/20 12:00 97.8 F 74 20 104/37 L 100 Weight Admit Weight 210 lb 5 oz Weight 190 lb Most Recent Monitor Data Heart Rate from ECG 85 NIBP 108/50 NIBP BP-Mean 69 Respiration from ECG 30 SpO2 100 I&O: 08/27/20 08/28/20 08/29/20 06:59 06:59 06:59 Intake Total 1840 1550 1160 Output Total 2650 1950 750 Balance -810 -400 410 Result Diagrams: 08/28/20 05:56 08/28/20 05:56 Additional Labs: Accuchecks 08/28/20 08/28/20 08/28/20 20:19 16:09 06:08 POC Glucose 441 H 395 H 220 H 08/27/20 20:46 POC Glucose 359 H Hospitalist ROS - Medication Medications: Active Medications Generic Name Dose Route Start Last Admin Trade Name Freq PRN Reason Stop Dose Admin Acetaminophen 650 mg 08/10/20 10:40 08/25/20 01:16 Acetaminophen 325 Mg Tab PO 650 mg Q4H PRN Administration Headache/Fever/Mild Pain (1-3) Albuterol Sulfate 2 puff 08/18/20 18:30 08/28/20 17:59 Albuterol 200 Puff (6.7gm Inhaler) INH 2 puff [id number] HARPREET Administration Albuterol Sulfate 2 puff 08/18/20 15:28 08/24/20 05:11 Albuterol 200 Puff (6.7gm Inhaler) INH 2 puff Q4H PRN Administration SOB &/or Wheezing Bupropion HCl 150 mg 08/11/20 09:00 08/28/20 09:38 Bupropion 150 Mg Xl Tab PO 150 mg DAILY HARPREET Administration Dexamethasone 6 mg 08/25/20 09:00 08/28/20 09:39 Dexamethasone 4 Mg/Ml Vial SLOW IVP 6 mg DAILY HARPREET Administration Enoxaparin Sodium 30 mg 08/24/20 21:00 08/28/20 20:08 Enoxaparin Sodium 30 Mg/0.3 Ml Syringe SC Not Given 899,2099 HARPREET Escitalopram Oxalate 20 mg 08/11/20 09:00 08/28/20 09:31 Escitalopram Oxalate 20 Mg Tablet PO 20 mg DAILY HARPREET Administration Furosemide 40 mg 08/22/20 07:30 08/28/20 09:31 Furosemide 40 Mg Tab PO 40 mg DAILY-AC HARPREET Administration Gabapentin 300 mg 08/11/20 09:00 08/28/20 09:31 Gabapentin 300 Mg Cap PO 300 mg DAILY HARPREET Administration Guaifenesin/Dextromethorphan 15 ml 08/10/20 10:40 08/23/20 21:01 Guaifenesin Dm 100-10/5 Ml Udcup PO 15 ml Q4H PRN Administration Cough Daptomycin 500 mg/ Sodium 100 mls @ 200 mls/hr 08/22/20 14:00 08/28/20 16:24 Chloride IVPB 100 mls Q24HR HARPREET Administration Insulin Human Lispro 0 units 08/10/20 14:50 08/28/20 16:32 Humalog 300 Units/3 Ml Vial SC 6 unit .MILD SLIDING SCALE PRN Administration Mild Correctional Scale Insulin Human Lispro 0 units 08/10/20 14:50 08/28/20 20:23 Humalog 300 Units/3 Ml Vial SC 5 unit .BEDTIME SLIDING SC PRN Administration Bedtime Correctional Scale Melatonin 6 mg 08/11/20 21:00 08/28/20 20:08 Melatonin 3 Mg Tab PO 6 mg HS HARPREET Administration Methylcellulose 500 mg 08/16/20 09:00 08/28/20 09:31 Citrucel 500 Mg Tab PO 500 mg DAILY HARPREET Administration Multivitamins 1 tab 08/11/20 09:00 08/28/20 09:38 Multivit, Chewable Sf 1 Tab PO 1 tab DAILY HARPREET Administration Propranolol HCl 10 mg 08/17/20 09:00 08/28/20 09:37 Propranolol 10 Mg Tab PO 10 mg DAILY HARPREET Administration Sodium Chloride 1 gm 08/12/20 09:00 08/28/20 20:09 Sodium Chloride 1 Gm Tab PO 1 gm BID HARPREET Administration Sodium Chloride 10 ml 08/12/20 09:00 08/28/20 20:09 Flush - Normal Saline 10 Ml Syringe IVF 10 ml Q12HR HARPREET Administration Sodium Chloride 10 ml 08/12/20 09:00 08/19/20 06:09 Flush - Normal Saline 10 Ml Syringe IVF 10 ml PRN PRN Administration Saline Flush Spironolactone 50 mg 08/22/20 08:00 08/28/20 09:38 Spironolactone 100 Mg Tab PO 50 mg QAM-WM HARPREET Administration Sucralfate 1 gm 08/10/20 14:47 08/24/20 08:31 Sucralfate 1 Gm/10 Ml Udcup PO 1 gm QID PRN Administration ODNYOPHAGIA - Exam General Appearance: awake alert ENT: normocephalic atraumatic Neck: supple, no JVD Heart: RRR Respiratory: normal chest expansion, no tachypnea Gastrointestinal: soft Neurological: cranial nerve grossly intact, no focal deficits Hosp A/P (1) COVID-19 Code(s): U07.1 - COVID-19 Status: Acute (2) 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 Code(s): I33.0 - ACUTE AND SUBACUTE INFECTIVE ENDOCARDITIS; B95.8 - UNSP STAPHYLOCOCCUS THE CAUSE OF DISEASES CLASSD ELSWHR Status: Acute (3) DM type 2 (diabetes mellitus, type 2) Status: Chronic Qualifiers: Diabetes mellitus snf insulin use: without snf use Diabetes mellitus complication status: without complication Qualified Code(s): E11.9 - Type 2 diabetes mellitus without complications - Plan The patient is on dexamethasone and remdesivir for COVID-19 with hypoxia. Oxygen requirements improving. Decrease supplemental O2 to 3 L. Blood sugar is uncontrolled. Increase evening Lantus to 35 units. 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 Patient is on daptomycin. Enoxaparin for DVT prophylaxis.
[2020-08-28] MEDS ORDERED: Potassium Chloride 20 MEQ TAB PO SCH (20:45)
[2020-08-28] MEDS ORDERED: Insulin Glargine 35 UNITS in Pre-Filled Syringe 1 EACH SC SCH (21:00)
[2020-08-28] MEDS ORDERED: Insulin Glargine 10 UNITS in Pre-Filled Syringe 1 EACH SC SCH (21:45)
[2020-08-29] MEDS: Albuterol 200 PUFF (6.7GM INHALER) INH SCH ×6 (02:50→23:01)
[2020-08-29] MEDS: HumaLOG 300 UNITS/3 ML VIAL SC PRN ×4 (05:45→20:01)
[2020-08-29 06:07] LABS: Band 2 % (5-11); Burr Cells SLIGHT = 2-5 cells (100X) (0-1/hpf); Eosinophils 1 % (0-10); Hemoglobin 8.5 g/dL (14.0-18.0); Lymphocytes 14 % (21-51); MDiff Complete? YES; Mean Corpuscular HGB CONC 30.8 g/dL (32.0-36.0); Mean Corpuscular Hemoglobin 26.6 pg (27.0-31.0); Mean Corpuscular Volume 86.4 fL (78.0-98.0); Mean Platelet Volume 6.6 fL (7.4-10.4); Monocytes 7 % (0-10); Neutrophil 76 % (42-75); Nucleated RBC 1 % (0); Ovalocytes MODERATE= 6-15 cells (100X) (0-1/hpf); Platelet Count 59 thou/uL (130-400); Platelet Morphology Comment Appears Decreased; RBC Distribution Width 28.2 % (11.5-14.5); Red Blood Cell (RBC) Count 3.18 mill/uL (4.70-6.10); White Blood Cell (WBC) Count 7.7 thou/uL (4.8-10.8)
[2020-08-29 06:16] LABS: ALT (SGPT) 48 U/L (8-55); AST (SGOT) 53 U/L (5-34); Albumin 1.8 g/dL (3.5-5.0); Alkaline Phosphatase 210 U/L (40-110); Anion Gap 10 mmol/L (10-20); BUN (Urea Nitrogen) 13 mg/dL (8.4-25.7); Bilirubin, Direct 2.8 mg/dL (0.1-0.3); Bilirubin, Total 7.1 mg/dL (0.2-1.2); CRP (Inflammatory) Less than 0.50 mg/dL (= or < 0.5); Calc. Creatinine Clearance 169 mL/min (70-130); Calcium 8.1 mg/dL (7.8-10.44); Carbon Dioxide 26 mmol/L (22-29); Chloride 102 mmol/L (98-107); Estimated GFR-MDRD Greater than 90; Glucose 336 mg/dL (70-105); Potassium 3.6 mmol/L (3.5-5.1); Sodium 134 mmol/L (136-145)
[2020-08-29] MEDS: Bupropion 150 MG XL TAB PO SCH (08:35)
[2020-08-29] MEDS: Dexamethasone 4 mg/ml Vial SLOW IVP SCH (08:35)
[2020-08-29] MEDS: Escitalopram Oxalate 20 mg Tablet PO SCH (08:35)
[2020-08-29] MEDS: Gabapentin 300 MG CAP PO SCH (08:35)
[2020-08-29] MEDS: Furosemide 40 MG TAB PO SCH (08:35)
[2020-08-29] MEDS: Spironolactone 100 MG TAB PO SCH (08:36)
[2020-08-29] MEDS: Citrucel 500 MG TAB PO SCH (08:37)
[2020-08-29] MEDS: Propranolol 10 MG TAB PO SCH (08:37)
[2020-08-29] MEDS: Sodium Chloride 1 GM TAB PO SCH ×2 (08:37→20:01)
[2020-08-29] MEDS: Multivit, Chewable SF 1 TAB PO SCH (08:37)
[2020-08-29] MEDS: Enoxaparin Sodium 30 MG/0.3 ML SYRINGE SC SCH ×2 (08:38→19:43)
[2020-08-29] MEDS: Insulin Glargine 10 UNITS in Pre-Filled Syringe 1 EACH SC SCH (08:40)
[2020-08-29] MEDS: DAPTOmycin 500 MG in Sodium Chloride 0.9% 100 ML IVPB SCH (15:19)
--- NOTE | 2020-08-29 15:32 | PDOC.HOSPP ---
- Subjective Encounter Date: 08/29/20 - Objective Vital Signs & Weight: Vital Signs (12 hours) Temp Pulse Resp BP BP Pulse Ox 08/29/20 12:55 98.9 F 83 16 107/38 L 92 L 08/29/20 08:18 98.4 F 85 18 123/49 L 95 Weight Admit Weight 210 lb 5 oz Weight 190 lb Most Recent Monitor Data Heart Rate from ECG 85 NIBP 108/50 NIBP BP-Mean 69 Respiration from ECG 30 SpO2 100 I&O: 08/28/20 08/29/20 08/30/20 06:59 06:59 06:59 Intake Total 1550 1670 Output Total 1950 750 Balance -400 920 Result Diagrams: 08/29/20 05:36 08/29/20 05:36 Additional Labs: Accuchecks 08/29/20 08/28/20 08/28/20 05:44 20:19 16:09 POC Glucose 326 H 441 H 395 H 08/28/20 12:09 POC Glucose 249 H Hospitalist ROS - Medication Medications: Active Medications Generic Name Dose Route Start Last Admin Trade Name Freq PRN Reason Stop Dose Admin Acetaminophen 650 mg 08/10/20 10:40 08/25/20 01:16 Acetaminophen 325 Mg Tab PO 650 mg Q4H PRN Administration Headache/Fever/Mild Pain (1-3) Albuterol Sulfate 2 puff 08/18/20 18:30 08/29/20 15:20 Albuterol 200 Puff (6.7gm Inhaler) INH 2 puff [id number] HARPREET Administration Albuterol Sulfate 2 puff 08/18/20 15:28 08/24/20 05:11 Albuterol 200 Puff (6.7gm Inhaler) INH 2 puff Q4H PRN Administration SOB &/or Wheezing Bupropion HCl 150 mg 08/11/20 09:00 08/29/20 08:35 Bupropion 150 Mg Xl Tab PO 150 mg DAILY HARPREET Administration Dexamethasone 6 mg 08/25/20 09:00 08/29/20 08:35 Dexamethasone 4 Mg/Ml Vial SLOW IVP 6 mg DAILY HARPREET Administration Enoxaparin Sodium 30 mg 08/24/20 21:00 08/29/20 08:38 Enoxaparin Sodium 30 Mg/0.3 Ml Syringe SC Not Given 899,2099 HARPREET Escitalopram Oxalate 20 mg 08/11/20 09:00 08/29/20 08:35 Escitalopram Oxalate 20 Mg Tablet PO 20 mg DAILY HARPREET Administration Furosemide 40 mg 08/22/20 07:30 08/29/20 08:35 Furosemide 40 Mg Tab PO 40 mg DAILY-AC HARPREET Administration Gabapentin 300 mg 08/11/20 09:00 08/29/20 08:35 Gabapentin 300 Mg Cap PO 300 mg DAILY HARPREET Administration Guaifenesin/Dextromethorphan 15 ml 08/10/20 10:40 08/23/20 21:01 Guaifenesin Dm 100-10/5 Ml Udcup PO 15 ml Q4H PRN Administration Cough Daptomycin 500 mg/ Sodium 100 mls @ 200 mls/hr 08/22/20 14:00 08/29/20 15:19 Chloride IVPB 100 mls Q24HR HARPREET Administration Insulin Glargine 10 units/ 0.1 mls @ 0 mls/hr 08/29/20 09:00 08/29/20 08:40 Miscellaneous Medication SC 0.1 mls QAM HARPREET Administration Insulin Human Lispro 0 units 08/10/20 14:50 08/29/20 12:40 Humalog 300 Units/3 Ml Vial SC 6 unit .MILD SLIDING SCALE PRN Administration Mild Correctional Scale Insulin Human Lispro 0 units 08/10/20 14:50 08/28/20 20:23 Humalog 300 Units/3 Ml Vial SC 5 unit .BEDTIME SLIDING SC PRN Administration Bedtime Correctional Scale Melatonin 6 mg 08/11/20 21:00 08/28/20 20:08 Melatonin 3 Mg Tab PO 6 mg HS HARPREET Administration Methylcellulose 500 mg 08/16/20 09:00 08/29/20 08:37 Citrucel 500 Mg Tab PO 500 mg DAILY HARPREET Administration Multivitamins 1 tab 08/11/20 09:00 08/29/20 08:37 Multivit, Chewable Sf 1 Tab PO 1 tab DAILY HARPREET Administration Propranolol HCl 10 mg 08/17/20 09:00 08/29/20 08:37 Propranolol 10 Mg Tab PO 10 mg DAILY HARPREET Administration Sodium Chloride 1 gm 08/12/20 09:00 08/29/20 08:37 Sodium Chloride 1 Gm Tab PO 1 gm BID HARPREET Administration Sodium Chloride 10 ml 08/12/20 09:00 11/19/20 08:38 Flush - Normal Saline 10 Ml Syringe IVF 10 ml Q12HR HARPREET Administration Sodium Chloride 10 ml 08/12/20 09:00 08/19/20 06:09 Flush - Normal Saline 10 Ml Syringe IVF 10 ml PRN PRN Administration Saline Flush Spironolactone 50 mg 08/22/20 08:00 08/29/20 08:36 Spironolactone 100 Mg Tab PO 50 mg QAM-WM HARPREET Administration Sucralfate 1 gm 08/10/20 14:47 08/24/20 08:31 Sucralfate 1 Gm/10 Ml Udcup PO 1 gm QID PRN Administration ODNYOPHAGIA - Exam General Appearance: awake alert ENT: normocephalic atraumatic Neck: supple, no JVD Heart: RRR Respiratory: normal chest expansion, no tachypnea Gastrointestinal: soft Neurological: cranial nerve grossly intact, no focal deficits Hosp A/P (1) COVID-19 Code(s): U07.1 - COVID-19 Status: Acute (2) 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 Code(s): I33.0 - ACUTE AND SUBACUTE INFECTIVE ENDOCARDITIS; B95.8 - UNSP STAPHYLOCOCCUS THE CAUSE OF DISEASES CLASSD ELSWHR Status: Acute (3) DM type 2 (diabetes mellitus, type 2) Status: Chronic Qualifiers: Diabetes mellitus senior living insulin use: without senior living use Diabetes mellitus complication status: without complication Qualified Code(s): E11.9 - Type 2 diabetes mellitus without complications - Plan The patient is on dexamethasone and remdesivir for COVID-19 with hypoxia. Oxygen requirements improving. Blood sugar is uncontrolled. Increase Lantus to 35 units in the evening and 10 units in the morning. 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 Patient is on daptomycin. Enoxaparin for DVT prophylaxis.
[2020-08-29] MEDS: Melatonin 3 MG TAB PO SCH (21:14)
[2020-08-29] MEDS: Insulin Glargine 35 UNITS in Pre-Filled Syringe 1 EACH SC SCH (21:15)
[2020-08-30] MEDS: Albuterol 200 PUFF (6.7GM INHALER) INH SCH ×6 (02:10→21:45)
[2020-08-30] MEDS: HumaLOG 300 UNITS/3 ML VIAL SC PRN ×3 (05:02→16:01)
[2020-08-30 07:31] LABS: ALT (SGPT) 60 U/L (8-55); AST (SGOT) 66 U/L (5-34); Alkaline Phosphatase 250 U/L (40-110); Anion Gap 9 mmol/L (10-20); BUN (Urea Nitrogen) 13 mg/dL (8.4-25.7); Bilirubin, Direct 3.1 mg/dL (0.1-0.3); Bilirubin, Total 8.6 mg/dL (0.2-1.2); CRP (Inflammatory) Less than 0.50 mg/dL (= or < 0.5); Calc. Creatinine Clearance 187 mL/min (70-130); Calcium 8.1 mg/dL (7.8-10.44); Carbon Dioxide 25 mmol/L (22-29); Chloride 102 mmol/L (98-107); Estimated GFR-MDRD Greater than 90; Glucose 153 mg/dL (70-105); Potassium 3.3 mmol/L (3.5-5.1); Protein, Total 5.6 g/dL (6.0-8.3); Sodium 133 mmol/L (136-145)
[2020-08-30 08:23] LABS: Mean Corpuscular HGB CONC 31.6 g/dL (32.0-36.0); Mean Corpuscular Hemoglobin 27.3 pg (27.0-31.0); Mean Corpuscular Volume 86.4 fL (78.0-98.0); Mean Platelet Volume 7.4 fL (7.4-10.4); Platelet Count 61 thou/uL (130-400); RBC Distribution Width 28.6 % (11.5-14.5); Red Blood Cell (RBC) Count 3.31 mill/uL (4.70-6.10); White Blood Cell (WBC) Count 10.4 thou/uL (4.8-10.8)
[2020-08-30] MEDS: Furosemide 40 MG TAB PO SCH (09:05)
[2020-08-30] MEDS: Spironolactone 100 MG TAB PO SCH (09:05)
[2020-08-30] MEDS: Bupropion 150 MG XL TAB PO SCH (09:05)
[2020-08-30] MEDS: Citrucel 500 MG TAB PO SCH (09:06)
[2020-08-30] MEDS: Gabapentin 300 MG CAP PO SCH (09:06)
[2020-08-30] MEDS: Escitalopram Oxalate 20 mg Tablet PO SCH (09:06)
[2020-08-30] MEDS: Dexamethasone 4 mg/ml Vial SLOW IVP SCH (09:07)
[2020-08-30] MEDS: Enoxaparin Sodium 30 MG/0.3 ML SYRINGE SC SCH ×2 (09:07→21:42)
[2020-08-30] MEDS: Insulin Glargine 10 UNITS in Pre-Filled Syringe 1 EACH SC SCH (09:07)
[2020-08-30] MEDS: Sodium Chloride 1 GM TAB PO SCH ×2 (09:08→21:45)
[2020-08-30] MEDS: Multivit, Chewable SF 1 TAB PO SCH (09:08)
[2020-08-30] MEDS: Propranolol 10 MG TAB PO SCH (09:08)
[2020-08-30 09:46] LABS: Anisocytosis MARKED = >30 cells (100X) (0-5/hpf); Bite Cells SLIGHT = 2-5 cells (100X) (0-1/hpf); Hypochromia SLIGHT = 6-15 cells (100X) (0-5/hpf); Lymphocytes 17 % (21-51); MDiff Complete? YES; Monocytes 11 % (0-10); Neutrophil 70 % (42-75); Platelet Morphology Comment Appears Decreased; Polychromasia MODERATE = 3-4 cells (100X) (0-2/hpf); Reactive Lymphocytes 2 % (0-10); Schistocytes SLIGHT = 2-5 cells (100X) (0-1/hpf); Spherocytes SLIGHT = 1-5 cells (100X) (None Seen)
--- NOTE | 2020-08-30 15:06 | PRG ---
DATE OF SERVICE: 08/30/2020 SUBJECTIVE: A little bit tachypneic, but appears comfortable at rest. No chest pain. No abdominal pain. OBJECTIVE: VITAL SIGNS: He is afebrile. Respiratory rate is 20, O2 saturations are stable at 94 with nasal cannula O2 at 3 L, and BP 120/60. HEENT: Scleral icterus. LUNGS: Basilar crackles on the right side. HEART: S1 and S2, regular rate. ABDOMEN: Soft with mild to moderate distention. No bladder distention. GENERAL: He is voiding in the urinal. I's and O's have been negative or positive over the past few days, anywhere from 400 to 900. He is awake, follows commands. LABORATORY DATA: White cell count is at 10.4, hemoglobin 9, platelets 61, 70% neutrophils. Sodium 133, creatinine 0.57, bilirubin 3.1, AST 66, ALT 60, alkaline phosphatase 250. The cultures with Staphylococcus sciuri. 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 Two different strains, first methicillin sensitive and the second methicillin resistant. In addition to that, he acquired SARS-CoV-2 infection, and he seems to be turning around a little bit, and he continues on daptomycin for Staphylococcus sciuri, the end date of therapy will be October 03. Weekly labs. Job ID: [id number]
[2020-08-30] MEDS: DAPTOmycin 500 MG in Sodium Chloride 0.9% 100 ML IVPB SCH (15:59)
--- NOTE | 2020-08-30 17:56 | PDOC.HOSPP ---
- Subjective Encounter Date: 08/30/20 Subjective: The patient reported SOB with ambulation. - Objective Vital Signs & Weight: Vital Signs (12 hours) Temp Pulse Resp BP Pulse Ox 08/30/20 08:00 94 L 08/30/20 07:47 98.0 F 81 20 128/61 94 L Weight Admit Weight 210 lb 5 oz Weight 190 lb Most Recent Monitor Data Heart Rate from ECG 85 NIBP 108/50 NIBP BP-Mean 69 Respiration from ECG 30 SpO2 100 I&O: 08/29/20 08/30/20 08/31/20 06:59 06:59 06:59 Intake Total 1670 1580 Output Total 750 1000 Balance 920 580 Result Diagrams: 08/30/20 06:49 08/30/20 06:49 Additional Labs: Accuchecks 08/30/20 08/30/20 08/30/20 15:56 10:55 05:01 POC Glucose 441 H 336 H 188 H 08/29/20 19:33 POC Glucose 298 H Hospitalist ROS - Medication Medications: Active Medications Generic Name Dose Route Start Last Admin Trade Name Freq PRN Reason Stop Dose Admin Acetaminophen 650 mg 08/10/20 10:40 08/25/20 01:16 Acetaminophen 325 Mg Tab PO 650 mg Q4H PRN Administration Headache/Fever/Mild Pain (1-3) Albuterol Sulfate 2 puff 08/18/20 18:30 08/30/20 14:54 Albuterol 200 Puff (6.7gm Inhaler) INH 2 puff [id number] HARPREET Administration Albuterol Sulfate 2 puff 08/18/20 15:28 08/24/20 05:11 Albuterol 200 Puff (6.7gm Inhaler) INH 2 puff Q4H PRN Administration SOB &/or Wheezing Bupropion HCl 150 mg 08/11/20 09:00 08/30/20 09:05 Bupropion 150 Mg Xl Tab PO 150 mg DAILY HARPREET Administration Dexamethasone 6 mg 08/25/20 09:00 08/30/20 09:07 Dexamethasone 4 Mg/Ml Vial SLOW IVP 6 mg DAILY HARPREET Administration Enoxaparin Sodium 30 mg 08/24/20 21:00 08/30/20 09:07 Enoxaparin Sodium 30 Mg/0.3 Ml Syringe SC Not Given 899,2099 HARPREET Escitalopram Oxalate 20 mg 08/11/20 09:00 08/30/20 09:06 Escitalopram Oxalate 20 Mg Tablet PO 20 mg DAILY HARPREET Administration Furosemide 40 mg 08/22/20 07:30 08/30/20 09:05 Furosemide 40 Mg Tab PO 40 mg DAILY-AC HARPREET Administration Gabapentin 300 mg 08/11/20 09:00 08/30/20 09:06 Gabapentin 300 Mg Cap PO 300 mg DAILY HARPREET Administration Guaifenesin/Dextromethorphan 15 ml 08/10/20 10:40 08/23/20 21:01 Guaifenesin Dm 100-10/5 Ml Udcup PO 15 ml Q4H PRN Administration Cough Daptomycin 500 mg/ Sodium 100 mls @ 200 mls/hr 08/22/20 14:00 08/30/20 15:59 Chloride IVPB 100 mls Q24HR HARPREET Administration Insulin Glargine 35 units/ 0.35 mls @ 0 mls/hr 08/29/20 21:00 08/29/20 21:15 Miscellaneous Medication SC 0.35 mls HS HARPREET Administration Insulin Human Lispro 0 units 08/10/20 14:50 08/30/20 16:01 Humalog 300 Units/3 Ml Vial SC 6 unit .MILD SLIDING SCALE PRN Administration Mild Correctional Scale Insulin Human Lispro 0 units 08/10/20 14:50 08/29/20 20:01 Humalog 300 Units/3 Ml Vial SC 3 unit .BEDTIME SLIDING SC PRN Administration Bedtime Correctional Scale Melatonin 6 mg 08/11/20 21:00 08/29/20 21:14 Melatonin 3 Mg Tab PO 6 mg HS HARPREET Administration Methylcellulose 500 mg 08/16/20 09:00 08/30/20 09:06 Citrucel 500 Mg Tab PO 500 mg DAILY HARPREET Administration Multivitamins 1 tab 08/11/20 09:00 08/30/20 09:08 Multivit, Chewable Sf 1 Tab PO 1 tab DAILY HARPREET Administration Propranolol HCl 10 mg 08/17/20 09:00 08/30/20 09:08 Propranolol 10 Mg Tab PO 10 mg DAILY HARPREET Administration Sodium Chloride 1 gm 08/12/20 09:00 08/30/20 09:08 Sodium Chloride 1 Gm Tab PO 1 gm BID HARPREET Administration Sodium Chloride 10 ml 08/12/20 09:00 08/30/20 09:08 Flush - Normal Saline 10 Ml Syringe IVF 10 ml Q12HR HARPREET Administration Sodium Chloride 10 ml 08/12/20 09:00 08/19/20 06:09 Flush - Normal Saline 10 Ml Syringe IVF 10 ml PRN PRN Administration Saline Flush Spironolactone 50 mg 08/22/20 08:00 08/30/20 09:05 Spironolactone 100 Mg Tab PO 50 mg QAM-WM HARPREET Administration Sucralfate 1 gm 08/10/20 14:47 08/24/20 08:31 Sucralfate 1 Gm/10 Ml Udcup PO 1 gm QID PRN Administration ODNYOPHAGIA - Exam General Appearance: awake alert ENT: normocephalic atraumatic Neck: supple, no JVD Heart: RRR Respiratory: normal chest expansion, no tachypnea Gastrointestinal: soft Extremities: no cyanosis, no clubbing Hosp A/P (1) COVID-19 Code(s): U07.1 - COVID-19 Status: Acute (2) 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 Code(s): I33.0 - ACUTE AND SUBACUTE INFECTIVE ENDOCARDITIS; B95.8 - UNSP STAPHYLOCOCCUS THE CAUSE OF DISEASES CLASSD ELSWHR Status: Acute (3) DM type 2 (diabetes mellitus, type 2) Status: Chronic Qualifiers: Diabetes mellitus intermediate school teacher insulin use: without intermediate school teacher use Diabetes mellitus complication status: without complication Qualified Code(s): E11.9 - Type 2 diabetes mellitus without complications (4) Cirrhosis of liver Code(s): K74.60 - UNSPECIFIED CIRRHOSIS OF LIVER Status: Chronic Qualifiers: Hepatic cirrhosis type: alcoholic cirrhosis Ascites presence: unspecified Qualified Code(s): K70.30 - Alcoholic cirrhosis of liver without ascites - Plan The patient is on dexamethasone for COVID-19 with hypoxia. Oxygen requirements improving. Now on 3L. Blood sugar is uncontrolled. Increase Lantus to 35 units in the evening and 25 units in the morning. 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 Patient is on daptomycin per ID. Compensated liver cirrhosis. Continue to monitor. Enoxaparin for DVT prophylaxis.
[2020-08-30] MEDS: Melatonin 3 MG TAB PO SCH (21:42)
[2020-08-30] MEDS: Insulin Glargine 35 UNITS in Pre-Filled Syringe 1 EACH SC SCH (21:42)
[2020-08-31] MEDS: Albuterol 200 PUFF (6.7GM INHALER) INH SCH ×6 (04:47→20:28)
[2020-08-31] MEDS: HumaLOG 300 UNITS/3 ML VIAL SC PRN ×4 (04:55→20:39)
[2020-08-31] MEDS: Bupropion 150 MG XL TAB PO SCH (08:57)
[2020-08-31] MEDS: Propranolol 10 MG TAB PO SCH (08:57)
[2020-08-31] MEDS: Gabapentin 300 MG CAP PO SCH (08:57)
[2020-08-31] MEDS: Furosemide 40 MG TAB PO SCH (08:57)
[2020-08-31] MEDS: Multivit, Chewable SF 1 TAB PO SCH (08:57)
[2020-08-31] MEDS: Sodium Chloride 1 GM TAB PO SCH ×2 (08:57→20:28)
[2020-08-31] MEDS: Spironolactone 100 MG TAB PO SCH (08:57)
[2020-08-31] MEDS: Citrucel 500 MG TAB PO SCH (08:57)
[2020-08-31] MEDS: Enoxaparin Sodium 30 MG/0.3 ML SYRINGE SC SCH (08:58)
[2020-08-31] MEDS: Escitalopram Oxalate 20 mg Tablet PO SCH (08:58)
[2020-08-31] MEDS: Dexamethasone 4 mg/ml Vial SLOW IVP SCH (08:59)
[2020-08-31] MEDS ORDERED: Insulin Glargine 25 UNITS in Pre-Filled Syringe SC SCH (09:00)
[2020-08-31 11:26] LABS: Anion Gap 11 mmol/L (10-20); BUN (Urea Nitrogen) 14 mg/dL (8.4-25.7); Calc. Creatinine Clearance 184 mL/min (70-130); Calcium 8.4 mg/dL (7.8-10.44); Carbon Dioxide 23 mmol/L (22-29); Chloride 104 mmol/L (98-107); Estimated GFR-MDRD Greater than 90; Glucose 236 mg/dL (70-105); Potassium 3.3 mmol/L (3.5-5.1); Sodium 135 mmol/L (136-145)
[2020-08-31 11:29] LABS: Anisocytosis MARKED = >30 cells (100X) (0-5/hpf); Band 5 % (5-11); Eosinophils 1 % (0-10); Hemoglobin 8.2 g/dL (14.0-18.0); Hypochromia SLIGHT = 6-15 cells (100X) (0-5/hpf); Lymphocytes 28 % (21-51); MDiff Complete? YES; Mean Corpuscular HGB CONC 29.5 g/dL (32.0-36.0); Mean Corpuscular Hemoglobin 25.8 pg (27.0-31.0); Mean Corpuscular Volume 87.3 fL (78.0-98.0); Monocytes 2 % (0-10); Neutrophil 64 % (42-75); Platelet Count 57 thou/uL (130-400); RBC Distribution Width 28.9 % (11.5-14.5); Red Blood Cell (RBC) Count 3.18 mill/uL (4.70-6.10); Schistocytes MODERATE= 6-15 cells (100X) (0-1/hpf); White Blood Cell (WBC) Count 10.4 thou/uL (4.8-10.8)
--- NOTE | 2020-08-31 13:43 | PDOC.HOSPP ---
- Subjective Encounter Date: 08/31/20 (f/u covid) Encounter Time: 13:41 Subjective: Pt reports he is feeling better today. He denies any n/v/abd pain, denies any chest pain. States his breathing at night is better. He denies any new sx. - Objective Vital Signs & Weight: Vital Signs (12 hours) Temp Pulse Resp BP Pulse Ox 08/31/20 09:15 98.4 F 88 18 123/54 L 94 L Weight Admit Weight 210 lb 5 oz Weight 190 lb Most Recent Monitor Data Heart Rate from ECG 85 NIBP 108/50 NIBP BP-Mean 69 Respiration from ECG 30 SpO2 100 I&O: 08/30/20 08/31/20 09/01/20 06:59 06:59 06:59 Intake Total 1580 500 Output Total 1000 800 Balance 580 -300 Result Diagrams: 08/31/20 10:49 08/31/20 10:49 Additional Labs: Accuchecks 08/31/20 08/31/20 08/30/20 11:18 04:53 15:56 POC Glucose 255 H 293 H 441 H Hospitalist ROS - Medication Medications: Active Medications Generic Name Dose Route Start Last Admin Trade Name Freq PRN Reason Stop Dose Admin Acetaminophen 650 mg 08/10/20 10:40 08/25/20 01:16 Acetaminophen 325 Mg Tab PO 650 mg Q4H PRN Administration Headache/Fever/Mild Pain (1-3) Albuterol Sulfate 2 puff 08/18/20 18:30 08/31/20 08:59 Albuterol 200 Puff (6.7gm Inhaler) INH 2 puff [id number] HARPREET Administration Albuterol Sulfate 2 puff 08/18/20 15:28 08/24/20 05:11 Albuterol 200 Puff (6.7gm Inhaler) INH 2 puff Q4H PRN Administration SOB &/or Wheezing Bupropion HCl 150 mg 08/11/20 09:00 08/31/20 08:57 Bupropion 150 Mg Xl Tab PO 150 mg DAILY HARPREET Administration Dexamethasone 6 mg 08/25/20 09:00 08/31/20 08:59 Dexamethasone 4 Mg/Ml Vial SLOW IVP 6 mg DAILY HARPREET Administration Escitalopram Oxalate 20 mg 08/11/20 09:00 08/31/20 08:58 Escitalopram Oxalate 20 Mg Tablet PO 20 mg DAILY HARPREET Administration Furosemide 40 mg 08/22/20 07:30 08/31/20 08:57 Furosemide 40 Mg Tab PO 40 mg DAILY-AC HARPREET Administration Gabapentin 300 mg 08/11/20 09:00 08/31/20 08:57 Gabapentin 300 Mg Cap PO 300 mg DAILY HARPREET Administration Guaifenesin/Dextromethorphan 15 ml 08/10/20 10:40 08/23/20 21:01 Guaifenesin Dm 100-10/5 Ml Udcup PO 15 ml Q4H PRN Administration Cough Daptomycin 500 mg/ Sodium 100 mls @ 200 mls/hr 08/22/20 14:00 08/30/20 15:59 Chloride IVPB 100 mls Q24HR HARPREET Administration Insulin Glargine 35 units/ 0.35 mls @ 0 mls/hr 08/29/20 21:00 08/30/20 21:42 Miscellaneous Medication SC 0.35 mls HS HARPREET Administration Insulin Human Lispro 0 units 08/10/20 14:50 08/29/20 20:01 Humalog 300 Units/3 Ml Vial SC 3 unit .BEDTIME SLIDING SC PRN Administration Bedtime Correctional Scale Melatonin 6 mg 08/11/20 21:00 08/30/20 21:42 Melatonin 3 Mg Tab PO 6 mg HS HARPREET Administration Methylcellulose 500 mg 08/16/20 09:00 08/31/20 08:57 Citrucel 500 Mg Tab PO 500 mg DAILY HARPREET Administration Multivitamins 1 tab 08/11/20 09:00 08/31/20 08:57 Multivit, Chewable Sf 1 Tab PO 1 tab DAILY HARPREET Administration Propranolol HCl 10 mg 08/17/20 09:00 08/31/20 08:57 Propranolol 10 Mg Tab PO 10 mg DAILY HARPREET Administration Sodium Chloride 1 gm 08/12/20 09:00 08/31/20 08:57 Sodium Chloride 1 Gm Tab PO 1 gm BID HARPREET Administration Sodium Chloride 10 ml 08/12/20 09:00 08/31/20 08:59 Flush - Normal Saline 10 Ml Syringe IVF 10 ml Q12HR HARPREET Administration Sodium Chloride 10 ml 08/12/20 09:00 08/19/20 06:09 Flush - Normal Saline 10 Ml Syringe IVF 10 ml PRN PRN Administration Saline Flush Spironolactone 50 mg 08/22/20 08:00 08/31/20 08:57 Spironolactone 100 Mg Tab PO 50 mg QAM-WM HARPREET Administration Sucralfate 1 gm 08/10/20 14:47 08/24/20 08:31 Sucralfate 1 Gm/10 Ml Udcup PO 1 gm QID PRN Administration ODNYOPHAGIA - Exam General Appearance: NAD Heart: RRR Heart - other findings: 3/6 systolic murmur Respiratory: no wheezes, no rales, no ronchi Gastrointestinal: soft, non-tender, non-distended, normal bowel sounds Extremities: no cyanosis, no clubbing Extremities - other findings: mild edema LLE and hyperpigmentation c/w chronic issue Psychiatric: normal affect Hosp A/P (1) Acute respiratory failure Code(s): J96.00 - ACUTE RESPIRATORY FAILURE, UNSP W HYPOXIA OR HYPERCAPNIA Status: Acute Qualifiers: Respiratory failure complication: hypoxia Qualified Code(s): J96.01 - Acute respiratory failure with hypoxia (2) COVID-19 Code(s): U07.1 - COVID-19 Status: Acute (3) 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 Code(s): I33.0 - ACUTE AND SUBACUTE INFECTIVE ENDOCARDITIS; B95.8 - UNSP STAPHYLOCOCCUS THE CAUSE OF DISEASES CLASSD ELSWHR Status: Acute (4) Cirrhosis of liver Code(s): K74.60 - UNSPECIFIED CIRRHOSIS OF LIVER Status: Chronic Qualifiers: Hepatic cirrhosis type: alcoholic cirrhosis Ascites presence: unspecified Qualified Code(s): K70.30 - Alcoholic cirrhosis of liver without ascites (5) DM type 2 (diabetes mellitus, type 2) Status: Chronic Qualifiers: 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 insulin use: with [facility] use Diabetes mellitus complication status: without complication Qualified Code(s): E11.9 - Type 2 diabetes mellitus without complications; Z79.4 - intermediate (current) use of insulin (6) Hypertension Code(s): I10 - ESSENTIAL (PRIMARY) HYPERTENSION Status: Chronic Qualifiers: Hypertension type: essential hypertension Qualified Code(s): I10 - Essential (primary) hypertension (7) Anemia Code(s): D64.9 - ANEMIA, UNSPECIFIED Status: Chronic Qualifiers: Anemia type: other cause Other causes of anemia: chronic disease, other Qualified Code(s): D63.8 - Anemia in other chronic diseases classified elsewhere (8) Thrombocytopenia Code(s): D69.6 - THROMBOCYTOPENIA, UNSPECIFIED Status: Chronic - Plan COVID infection with acute resp failure - wean oxygen as tolerated - pt is s/p remdesivir. D dimer was elevated yesterday, but crp and ferritin are low/normal - pt is on decadron - will need to see if pt can be d/c with home oxygen/health Endocarditis - on daptomycin with plan through Oct [address] Shane DM - uncontrolled - increase lantus to 45 units at night, continue 25 units daily Cirrhosis - continue usual meds and fluid restriction Anemia/thrombocytopenia stable LLE edema - slight and appears chronic given the hyperpigmentation DVT prophy - scd's, d/c lovenox order due to thrombocytopenia (med held daily by RN's) gi prophy - not indicated code status DNAR d/w patient possible d/c Wednesday - if feeling well, and everything he needs for home is arranged - including oxygen no questions or further needs, pt demonstrates understanding and agrees with plan.
[2020-08-31] MEDS: DAPTOmycin 500 MG in Sodium Chloride 0.9% 100 ML IVPB SCH (14:30)
[2020-08-31] MEDS: Melatonin 3 MG TAB PO SCH (20:28)
[2020-08-31] MEDS ORDERED: Insulin Glargine 45 UNITS in Pre-Filled Syringe 1 EACH SC SCH (21:00)
[2020-08-31] MEDS ORDERED: Insulin Glargine 35 UNITS in Pre-Filled Syringe 1 EACH SC SCH (21:00)
[2020-09-01] MEDS: Albuterol 200 PUFF (6.7GM INHALER) INH SCH ×6 (02:00→20:26)
[2020-09-01 07:01] LABS: Anion Gap 10 mmol/L (10-20); BUN (Urea Nitrogen) 15 mg/dL (8.4-25.7); Calc. Creatinine Clearance 197 mL/min (70-130); Calcium 7.9 mg/dL (7.8-10.44); Carbon Dioxide 25 mmol/L (22-29); Chloride 102 mmol/L (98-107); Estimated GFR-MDRD Greater than 90; Glucose 177 mg/dL (70-105); Potassium 3.2 mmol/L (3.5-5.1); Sodium 134 mmol/L (136-145)
[2020-09-01 07:58] LABS: Band 3 % (5-11); Hemoglobin 7.8 g/dL (14.0-18.0); Lymphocytes 36 % (21-51); MDiff Complete? YES; Mean Corpuscular HGB CONC 31.1 g/dL (32.0-36.0); Mean Corpuscular Hemoglobin 26.8 pg (27.0-31.0); Mean Corpuscular Volume 86.2 fL (78.0-98.0); Mean Platelet Volume 12.7 fL (7.4-10.4); Monocytes 1 % (0-10); Neutrophil 60 % (42-75); Platelet Count 41 thou/uL (130-400); RBC Distribution Width 27.8 % (11.5-14.5); Red Blood Cell (RBC) Count 2.91 mill/uL (4.70-6.10); White Blood Cell (WBC) Count 7.8 thou/uL (4.8-10.8)
[2020-09-01] MEDS: Propranolol 10 MG TAB PO SCH (08:20)
[2020-09-01] MEDS: Citrucel 500 MG TAB PO SCH (08:20)
[2020-09-01] MEDS: Gabapentin 300 MG CAP PO SCH (08:20)
[2020-09-01] MEDS: Furosemide 40 MG TAB PO SCH (08:20)
[2020-09-01] MEDS: Spironolactone 100 MG TAB PO SCH (08:20)
[2020-09-01] MEDS: Escitalopram Oxalate 20 mg Tablet PO SCH (08:20)
[2020-09-01] MEDS: Dexamethasone 4 mg/ml Vial SLOW IVP SCH (08:21)
[2020-09-01] MEDS: Insulin Glargine 25 UNITS in Pre-Filled Syringe 1 EACH SC SCH (08:21)
[2020-09-01] MEDS: Multivit, Chewable SF 1 TAB PO SCH (08:21)
[2020-09-01] MEDS: Sodium Chloride 1 GM TAB PO SCH ×2 (08:21→20:25)
[2020-09-01] MEDS: Bupropion 150 MG XL TAB PO SCH (08:22)
[2020-09-01] MEDS: HumaLOG 300 UNITS/3 ML VIAL SC PRN ×2 (11:46→16:19)
[2020-09-01] MEDS: DAPTOmycin 500 MG in Sodium Chloride 0.9% 100 ML IVPB SCH (14:18)
[2020-09-01] MEDS ORDERED: Acetaminophen 325 MG TAB PO PRN (14:30)
[2020-09-01] MEDS ORDERED: Potassium Chloride 20 MEQ TAB PO SCH (14:45)
--- NOTE | 2020-09-01 15:00 | PDOC.HOSPP ---
- Subjective Encounter Date: 09/01/20 (f/u endocarditis) Encounter Time: 14:58 Subjective: Pt without complaints, reports he is ambulating with a walker. He denies any problems with breathing, and remains on oxygen supplementation by [place]. He reports sleeping well last night. - Objective Vital Signs & Weight: Vital Signs (12 hours) Temp Pulse Resp BP Pulse Ox 09/01/20 07:27 98.0 F 78 18 108/53 L 95 Weight Admit Weight 210 lb 5 oz Weight 190 lb Most Recent Monitor Data Heart Rate from ECG 85 NIBP 108/50 NIBP BP-Mean 69 Respiration from ECG 30 SpO2 100 I&O: 08/31/20 09/01/20 09/02/20 06:59 06:59 06:59 Intake Total 500 500 Output Total 800 1000 Balance -300 -500 Result Diagrams: 09/01/20 05:58 09/01/20 05:58 Additional Labs: Accuchecks 09/01/20 08/31/20 08/31/20 11:23 20:32 16:03 POC Glucose 226 H 426 H 377 H Hospitalist ROS - Medication Medications: Active Medications Generic Name Dose Route Start Last Admin Trade Name Freq PRN Reason Stop Dose Admin Albuterol Sulfate 2 puff 08/18/20 18:30 09/01/20 14:19 Albuterol 200 Puff (6.7gm Inhaler) INH 2 puff [id number] HARPREET Administration Albuterol Sulfate 2 puff 08/18/20 15:28 08/24/20 05:11 Albuterol 200 Puff (6.7gm Inhaler) INH 2 puff Q4H PRN Administration SOB &/or Wheezing Bupropion HCl 150 mg 08/11/20 09:00 09/01/20 08:22 Bupropion 150 Mg Xl Tab PO 150 mg DAILY HARPREET Administration Dexamethasone 6 mg 08/25/20 09:00 09/01/20 08:21 Dexamethasone 4 Mg/Ml Vial SLOW IVP 6 mg DAILY HARPREET Administration Escitalopram Oxalate 20 mg 08/11/20 09:00 09/01/20 08:20 Escitalopram Oxalate 20 Mg Tablet PO 20 mg DAILY HARPREET Administration Furosemide 40 mg 08/22/20 07:30 09/01/20 08:20 Furosemide 40 Mg Tab PO 40 mg DAILY-AC HARPREET Administration Gabapentin 300 mg 08/11/20 09:00 09/01/20 08:20 Gabapentin 300 Mg Cap PO 300 mg DAILY HARPREET Administration Guaifenesin/Dextromethorphan 15 ml 08/10/20 10:40 08/23/20 21:01 Guaifenesin Dm 100-10/5 Ml Udcup PO 15 ml Q4H PRN Administration Cough Daptomycin 500 mg/ Sodium 100 mls @ 200 mls/hr 08/22/20 14:00 09/01/20 14:18 Chloride IVPB 10/03/20 14:01 100 mls Q24HR HARPREET Administration Insulin Glargine 45 units/ 0.45 mls @ 0 mls/hr 08/31/20 21:00 08/31/20 20:28 Miscellaneous Medication SC 0.45 mls HS HARPREET Administration Insulin Glargine 25 units/ 0.25 mls @ 0 mls/hr 09/01/20 09:00 09/01/20 08:21 Miscellaneous Medication SC 0.25 mls QAM HARPREET Administration Insulin Human Lispro 0 units 08/10/20 14:50 08/31/20 20:39 Humalog 300 Units/3 Ml Vial SC 5 unit .BEDTIME SLIDING SC PRN Administration Bedtime Correctional Scale Insulin Human Lispro 0 units 08/31/20 13:39 09/01/20 11:46 Humalog 300 Units/3 Ml Vial SC 4 unit .MODERATE SLIDING SC PRN Administration Moderate Correctional Scale Melatonin 6 mg 08/11/20 21:00 08/31/20 20:28 Melatonin 3 Mg Tab PO 6 mg HS HARPREET Administration Methylcellulose 500 mg 08/16/20 09:00 09/01/20 08:20 Citrucel 500 Mg Tab PO 500 mg DAILY HARPREET Administration Multivitamins 1 tab 08/11/20 09:00 09/01/20 08:21 Multivit, Chewable Sf 1 Tab PO 1 tab DAILY HARPREET Administration Propranolol HCl 10 mg 08/17/20 09:00 09/01/20 08:20 Propranolol 10 Mg Tab PO 10 mg DAILY HARPREET Administration Sodium Chloride 1 gm 08/12/20 09:00 09/01/20 08:21 Sodium Chloride 1 Gm Tab PO 1 gm BID HARPREET Administration Sodium Chloride 10 ml 08/12/20 09:00 09/01/20 08:21 Flush - Normal Saline 10 Ml Syringe IVF 10 ml Q12HR HARPREET Administration Sodium Chloride 10 ml 08/12/20 09:00 08/19/20 06:09 Flush - Normal Saline 10 Ml Syringe IVF 10 ml PRN PRN Administration Saline Flush Spironolactone 50 mg 08/22/20 08:00 09/01/20 08:20 Spironolactone 100 Mg Tab PO 50 mg QAM-WM HARPREET Administration Sucralfate 1 gm 08/10/20 14:47 08/24/20 08:31 Sucralfate 1 Gm/10 Ml Udcup PO 1 gm QID PRN Administration ODNYOPHAGIA Hosp A/P (1) Acute respiratory failure Code(s): J96.00 - ACUTE RESPIRATORY FAILURE, UNSP W HYPOXIA OR HYPERCAPNIA Status: Acute Qualifiers: Respiratory failure complication: hypoxia Qualified Code(s): J96.01 - Acute respiratory failure with hypoxia (2) COVID-19 Code(s): U07.1 - COVID-19 Status: Acute (3) 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 Code(s): I33.0 - ACUTE AND SUBACUTE INFECTIVE ENDOCARDITIS; B95.8 - UNSP STAP HYLOCOCCUS THE CAUSE OF DISEASES CLASSD ELSWHR Status: Acute (4) Cirrhosis of liver Code(s): K74.60 - UNSPECIFIED CIRRHOSIS OF LIVER Status: Chronic Qualifiers: Hepatic cirrhosis type: alcoholic cirrhosis Ascites presence: unspecified Qualified Code(s): K70.30 - Alcoholic cirrhosis of liver without ascites (5) DM type 2 (diabetes mellitus, type 2) Status: Chronic Qualifiers: 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 insulin use: with [facility] use Diabetes mellitus complication status: without complication Qualified Code(s): E11.9 - Type 2 diabetes mellitus without complications; Z79.4 - plumbers and top helpers (current) use of insulin (6) Hypertension Code(s): I10 - ESSENTIAL (PRIMARY) HYPERTENSION Status: Chronic Qualifiers: Hypertension type: essential hypertension Qualified Code(s): I10 - Essential (primary) hypertension (7) Anemia Code(s): D64.9 - ANEMIA, UNSPECIFIED Status: Chronic Qualifiers: Anemia type: other cause Other causes of anemia: chronic disease, other Qualified Code(s): D63.8 - Anemia in other chronic diseases classified elsewhere (8) Thrombocytopenia Code(s): D69.6 - THROMBOCYTOPENIA, UNSPECIFIED Status: Chronic - Plan COVID infection with acute resp failure - wean oxygen as tolerated - pt is s/p remdesivir. - repeat inflammatory markers tomorrow - pt is on decadron - will check with Dr. Shane tomorrow if pt can be d/c to home with oxygen Endocarditis - on daptomycin with plan through Oct [address] Shane DM - uncontrolled - increase lantus to 50 units at night, continue 25 units daily Cirrhosis - continue usual meds and fluid restriction Hypokalemia - replace potassium Anemia/thrombocytopenia - mildly worse, recheck tomorrow and add type/screen LLE edema - unchanged, mild and c/w chronic edema. DVT prophy - scd's and ambulatory. no pharmacologic dvt prophy secondary to th rombocytopenia gi prophy - not indicated code status DNAR d/w patient possible d/c tomorrow. Steps for planning - d/w Dr. Shane, then case management to determine if needs are arranged for (antibiotics, oxygen) no questions or further needs, pt demonstrates understanding and agrees with plan.
[2020-09-01] MEDS: Melatonin 3 MG TAB PO SCH (20:23)
[2020-09-01] MEDS: Insulin Glargine 50 UNITS in Pre-Filled Syringe 1 EACH SC SCH (20:23)
[2020-09-02] MEDS: Albuterol 200 PUFF (6.7GM INHALER) INH SCH ×6 (02:00→21:09)
[2020-09-02] MEDS: HumaLOG 300 UNITS/3 ML VIAL SC PRN (05:36)
[2020-09-02 06:12] LABS: Anion Gap 9 mmol/L (10-20); BUN (Urea Nitrogen) 15 mg/dL (8.4-25.7); Calc. Creatinine Clearance 190 mL/min (70-130); Calcium 7.8 mg/dL (7.8-10.44); Carbon Dioxide 25 mmol/L (22-29); Chloride 104 mmol/L (98-107); Estimated GFR-MDRD Greater than 90; Glucose 226 mg/dL (70-105); Potassium 3.8 mmol/L (3.5-5.1); Sodium 134 mmol/L (136-145)
[2020-09-02 06:13] LABS: ALT (SGPT) 52 U/L (8-55); AST (SGOT) 35 U/L (5-34); Albumin 1.8 g/dL (3.5-5.0); Alkaline Phosphatase 253 U/L (40-110); Bilirubin, Direct 2.7 mg/dL (0.1-0.3); Bilirubin, Total 7.1 mg/dL (0.2-1.2); CRP (Inflammatory) Less than 0.50 mg/dL (= or < 0.5); Protein, Total 4.8 g/dL (6.0-8.3)
[2020-09-02 06:18] LABS: Anisocytosis MARKED = >30 cells (100X) (0-5/hpf); Band 2 % (5-11); Elliptocytes SLIGHT = 2-5 cells (100X) (0-1/hpf); Hemoglobin 7.5 g/dL (14.0-18.0); Hypochromia SLIGHT = 6-15 cells (100X) (0-5/hpf); Lymphocytes 22 % (21-51); MDiff Complete? YES; Mean Corpuscular HGB CONC 30.2 g/dL (32.0-36.0); Mean Corpuscular Hemoglobin 26.3 pg (27.0-31.0); Mean Platelet Volume 6.6 fL (7.4-10.4); Microcytosis SLIGHT = 6-15 cells (100X) (0-5/hpf); Monocytes 8 % (0-10); Neutrophil 68 % (42-75); Platelet Count 54 thou/uL (130-400); Platelet Morphology Comment Appears Decreased; RBC Distribution Width 27.3 % (11.5-14.5); Red Blood Cell (RBC) Count 2.86 mill/uL (4.70-6.10); White Blood Cell (WBC) Count 9.1 thou/uL (4.8-10.8)
[2020-09-02] MEDS: Sodium Chloride 1 GM TAB PO SCH ×2 (09:22→21:09)
[2020-09-02] MEDS: Dexamethasone 4 mg/ml Vial SLOW IVP SCH (09:22)
[2020-09-02] MEDS: Escitalopram Oxalate 20 mg Tablet PO SCH (09:22)
[2020-09-02] MEDS: Citrucel 500 MG TAB PO SCH (09:22)
[2020-09-02] MEDS: Gabapentin 300 MG CAP PO SCH (09:22)
[2020-09-02] MEDS: Bupropion 150 MG XL TAB PO SCH (09:22)
[2020-09-02] MEDS: Furosemide 40 MG TAB PO SCH (09:23)
[2020-09-02] MEDS: Insulin Glargine 25 UNITS in Pre-Filled Syringe 1 EACH SC SCH (09:23)
[2020-09-02] MEDS: Multivit, Chewable SF 1 TAB PO SCH (09:23)
[2020-09-02] MEDS: Propranolol 10 MG TAB PO SCH (09:23)
[2020-09-02] MEDS: Spironolactone 100 MG TAB PO SCH (09:23)
--- NOTE | 2020-09-02 13:14 | PDOC.HOSPP ---
- Subjective Encounter Date: 09/02/20 Encounter Time: 13:02 Subjective: on O2, no acute complaints - Objective Vital Signs & Weight: Vital Signs (12 hours) Temp Pulse Resp BP Pulse Ox 09/02/20 08:00 98.2 F 80 18 120/62 94 L Weight Admit Weight 210 lb 5 oz Weight 190 lb Most Recent Monitor Data Heart Rate from ECG 85 NIBP 108/50 NIBP BP-Mean 69 Respiration from ECG 30 SpO2 100 I&O: 09/01/20 09/02/20 09/03/20 06:59 06:59 06:59 Intake Total 500 500 Output Total 1000 Balance -500 500 Result Diagrams: 09/02/20 05:34 09/02/20 05:34 Additional Labs: Accuchecks 09/02/20 09/02/20 09/01/20 12:48 05:34 15:52 POC Glucose 252 H 217 H 297 H 08/30/20 21:53 POC Glucose 429 H Hospitalist ROS - Medication Medications: Active Medications Generic Name Dose Route Start Last Admin Trade Name Freq PRN Reason Stop Dose Admin Albuterol Sulfate 2 puff 08/18/20 18:30 09/02/20 09:23 Albuterol 200 Puff (6.7gm Inhaler) INH 2 puff [id number] HARPREET Administration Albuterol Sulfate 2 puff 08/18/20 15:28 08/24/20 05:11 Albuterol 200 Puff (6.7gm Inhaler) INH 2 puff Q4H PRN Administration SOB &/or Wheezing Bupropion HCl 150 mg 08/11/20 09:00 09/02/20 09:22 Bupropion 150 Mg Xl Tab PO 150 mg DAILY HARPREET Administration Dexamethasone 6 mg 08/25/20 09:00 09/02/20 09:22 Dexamethasone 4 Mg/Ml Vial SLOW IVP 6 mg DAILY HARPREET Administration Escitalopram Oxalate 20 mg 08/11/20 09:00 09/02/20 09:22 Escitalopram Oxalate 20 Mg Tablet PO 20 mg DAILY HARPREET Administration Furosemide 40 mg 08/22/20 07:30 09/02/20 09:23 Furosemide 40 Mg Tab PO 40 mg DAILY-AC HARPREET Administration Gabapentin 300 mg 08/11/20 09:00 09/02/20 09:22 Gabapentin 300 Mg Cap PO 300 mg DAILY HARPREET Administration Guaifenesin/Dextromethorphan 15 ml 08/10/20 10:40 08/23/20 21:01 Guaifenesin Dm 100-10/5 Ml Udcup PO 15 ml Q4H PRN Administration Cough Daptomycin 500 mg/ Sodium 100 mls @ 200 mls/hr 08/22/20 14:00 09/01/20 14:18 Chloride IVPB 10/03/20 14:01 100 mls Q24HR HARPREET Administration Insulin Glargine 25 units/ 0.25 mls @ 0 mls/hr 09/01/20 09:00 09/02/20 09:23 Miscellaneous Medication SC 0.25 mls QAM HARPREET Administration Insulin Glargine 50 units/ 0.5 mls @ 0 mls/hr 09/01/20 21:00 09/01/20 20:23 Miscellaneous Medication SC 0.5 mls HS HARPREET Administration Insulin Human Lispro 0 units 08/10/20 14:50 08/31/20 20:39 Humalog 300 Units/3 Ml Vial SC 5 unit .BEDTIME SLIDING SC PRN Administration Bedtime Correctional Scale Insulin Human Lispro 0 units 08/31/20 13:39 09/02/20 05:36 Humalog 300 Units/3 Ml Vial SC 4 unit .MODERATE SLIDING SC PRN Administration Moderate Correctional Scale Melatonin 6 mg 08/11/20 21:00 09/01/20 20:23 Melatonin 3 Mg Tab PO 6 mg HS HARPREET Administration Methylcellulose 500 mg 08/16/20 09:00 09/02/20 09:22 Citrucel 500 Mg Tab PO 500 mg DAILY HARPREET Administration Multivitamins 1 tab 08/11/20 09:00 09/02/20 09:23 Multivit, Chewable Sf 1 Tab PO 1 tab DAILY HARPREET Administration Propranolol HCl 10 mg 08/17/20 09:00 09/02/20 09:23 Propranolol 10 Mg Tab PO 10 mg DAILY HARPREET Administration Sodium Chloride 1 gm 08/12/20 09:00 09/02/20 09:22 Sodium Chloride 1 Gm Tab PO 1 gm BID HARPREET Administration Sodium Chloride 10 ml 08/12/20 09:00 09/02/20 09:23 Flush - Normal Saline 10 Ml Syringe IVF 10 ml Q12HR HARPREET Administration Sodium Chloride 10 ml 08/12/20 09:00 08/19/20 06:09 Flush - Normal Saline 10 Ml Syringe IVF 10 ml PRN PRN Administration Saline Flush Spironolactone 50 mg 08/22/20 08:00 09/02/20 09:23 Spironolactone 100 Mg Tab PO 50 mg QAM-WM HARPREET Administration Sucralfate 1 gm 08/10/20 14:47 08/24/20 08:31 Sucralfate 1 Gm/10 Ml Udcup PO 1 gm QID PRN Administration ODNYOPHAGIA - Exam General Appearance: awake alert Neck: no JVD Heart: RRR, III/IV Respiratory: CTAB Gastrointestinal: soft, non-distended, normal bowel sounds Extremities: no edema Hosp A/P (1) 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 Code(s): I33.0 - ACUTE AND SUBACUTE INFECTIVE ENDOCARDITIS; B95.8 - UNSP S TAPHYLOCOCCUS THE CAUSE OF DISEASES CLASSD ELSWHR Status: Acute (2) Aortic valve insufficiency due to infection Code(s): I35.1 - NONRHEUMATIC AORTIC (VALVE) INSUFFICIENCY Status: Acute (3) Cirrhosis of liver Code(s): K74.60 - UNSPECIFIED CIRRHOSIS OF LIVER Status: Chronic Qualifiers: Hepatic cirrhosis type: alcoholic cirrhosis Ascites presence: unspecified Qualified Code(s): K70.30 - Alcoholic cirrhosis of liver without ascites (4) Bacteremia due to Gram-positive bacteria Code(s): R78.81 - BACTEREMIA Status: Acute (5) Coagulopathy Status: Chronic (6) DM type 2 (diabetes mellitus, type 2) Status: Chronic Qualifiers: Diabetes mellitus technician terminal and repeater insulin use: with [facility] use Diabetes mellitus complication status: without complication Qualified Code(s): E11.9 - Type 2 diabetes mellitus without complications; Z79.4 - [facility] (current) use of insulin (7) Hypertension Code(s): I10 - ESSENTIAL (PRIMARY) HYPERTENSION Status: Chronic Qualifiers: Hypertension type: essential hypertension Qualified Code(s): I10 - Essential (primary) hypertension (8) COVID-19 Code(s): U07.1 - COVID-19 Status: Acute - Plan needs miv daptomycin through 10/03/20 arrange home Os, cont current tx for cirrrhosis
[2020-09-02] MEDS: DAPTOmycin 500 MG in Sodium Chloride 0.9% 100 ML IVPB SCH (14:48)
--- NOTE | 2020-09-02 15:57 | PRG ---
DATE OF SERVICE: 09/02/2020 SUBJECTIVE: Mr. Crowley is alert, little bit tachypneic, but denies any dyspnea. Less cough. No abdominal pain. Voiding without difficulty. OBJECTIVE: VITAL SIGNS: Temperature has been normal. At 3 to 4 nasal cannula O2 supplementation, saturations between 93 and 95. BP 120/62. GENERAL: Appears in no distress. LUNGS: Clear. HEART: S1 and S2, regular rate. ABDOMEN: Soft, not distended. EXTREMITIES: He is able to move extremities. He is able to bear weight. LABORATORY DATA: White cell count was 10.4 and now is 9.1, hemoglobin 7.5, platelets 54,000, and 62% neutrophils. Ferritin is down to 111. Bilirubin 2.7. CRP is less than 0.5. Last chest x-ray is from the and it showed stable examination with a PICC line, airspace disease bilaterally persisting. ASSESSMENT AND DISCUSSION: Cirrhosis secondary to alcoholism, type 2 diabetes, chronic pancreatitis, episodes of bacteremia and now Staphylococcus sciuri bacteremia with endocarditis in the aortic valve, subsequently acquired SARS-CoV-2 and it has stabilized now. The duration of SARS infection is about 19 days approximately, so I do not expect him to deteriorate further. I guess now is going to be the proper disposition in terms of the timing for discharge planning. He may need home O2 for discharge planning. His end date of therapy for the endocarditis will be October 03 with daptomycin. Job ID: [id number]
[2020-09-02] MEDS: Insulin Glargine 50 UNITS in Pre-Filled Syringe 1 EACH SC SCH (21:09)
[2020-09-02] MEDS: Melatonin 3 MG TAB PO SCH (21:09)
[2020-09-03] MEDS: Albuterol 200 PUFF (6.7GM INHALER) INH SCH ×6 (02:00→21:46)
[2020-09-03] MEDS: HumaLOG 300 UNITS/3 ML VIAL SC PRN ×3 (05:24→16:52)
[2020-09-03] MEDS: Spironolactone 25 MG TAB PO SCH (08:10)
[2020-09-03] MEDS: Bupropion 150 MG XL TAB PO SCH (08:10)
[2020-09-03] MEDS: Escitalopram Oxalate 20 mg Tablet PO SCH (08:10)
[2020-09-03] MEDS: Gabapentin 300 MG CAP PO SCH (08:10)
[2020-09-03] MEDS: Sodium Chloride 1 GM TAB PO SCH ×2 (08:10→21:35)
[2020-09-03] MEDS: Citrucel 500 MG TAB PO SCH (08:10)
[2020-09-03] MEDS: Dexamethasone 4 mg/ml Vial SLOW IVP SCH (08:11)
[2020-09-03] MEDS: Insulin Glargine 25 UNITS in Pre-Filled Syringe 1 EACH SC SCH (08:11)
[2020-09-03] MEDS: Furosemide 40 MG TAB PO SCH (08:11)
[2020-09-03 09:23] LABS: Anisocytosis MODERATE=16-30 cells (100X) (0-5/hpf); Elliptocytes SLIGHT = 2-5 cells (100X) (0-1/hpf); Hemoglobin 6.8 g/dL (14.0-18.0); Hypochromia SLIGHT = 6-15 cells (100X) (0-5/hpf); Lymphocytes 8 % (21-51); MDiff Complete? YES; Mean Corpuscular HGB CONC 30.1 g/dL (32.0-36.0); Mean Corpuscular Hemoglobin 26.7 pg (27.0-31.0); Mean Corpuscular Volume 88.7 fL (78.0-98.0); Mean Platelet Volume 6.5 fL (7.4-10.4); Monocytes 12 % (0-10); Neutrophil 80 % (42-75); Platelet Count 46 thou/uL (130-400); Platelet Morphology Comment Appears Decreased; Poikilocytosis MODERATE=16-30 cells (100X) (0-5/hpf); Red Blood Cell (RBC) Count 2.54 mill/uL (4.70-6.10); Schistocytes SLIGHT = 2-5 cells (100X) (0-1/hpf); White Blood Cell (WBC) Count 8.9 thou/uL (4.8-10.8)
[2020-09-03] MEDS: Multivit, Chewable SF 1 TAB PO SCH (09:27)
[2020-09-03] MEDS: Propranolol 10 MG TAB PO SCH (09:27)
--- NOTE | 2020-09-03 10:58 | PDOC.HOSPP ---
- Subjective Encounter Date: 09/03/20 Encounter Time: 10:56 Subjective: ready to go home - Objective Vital Signs & Weight: Vital Signs (12 hours) Temp Pulse Resp BP Pulse Ox 09/03/20 08:15 98.1 F 77 18 105/43 L 98 Weight Admit Weight 210 lb 5 oz Weight 190 lb Most Recent Monitor Data Heart Rate from ECG 85 NIBP 108/50 NIBP BP-Mean 69 Respiration from ECG 30 SpO2 100 I&O: 09/02/20 09/03/20 09/04/20 06:59 06:59 06:59 Intake Total 500 500 Output Total 900 Balance 500 -400 Result Diagrams: 09/03/20 06:03 09/02/20 05:34 Additional Labs: Accuchecks 09/02/20 09/02/20 09/01/20 19:26 12:48 20:44 POC Glucose 434 H 252 H 338 H 09/01/20 05:36 POC Glucose 153 H Hospitalist ROS - Medication Medications: Active Medications Generic Name Dose Route Start Last Admin Trade Name Freq PRN Reason Stop Dose Admin Albuterol Sulfate 2 puff 08/18/20 18:30 09/03/20 09:52 Albuterol 200 Puff (6.7gm Inhaler) INH 2 puff [id number] HARPREET Administration Albuterol Sulfate 2 puff 08/18/20 15:28 08/24/20 05:11 Albuterol 200 Puff (6.7gm Inhaler) INH 2 puff Q4H PRN Administration SOB &/or Wheezing Bupropion HCl 150 mg 08/11/20 09:00 09/03/20 08:10 Bupropion 150 Mg Xl Tab PO 150 mg DAILY HARPREET Administration Dexamethasone 6 mg 08/25/20 09:00 09/03/20 08:11 Dexamethasone 4 Mg/Ml Vial SLOW IVP 6 mg DAILY HARPREET Administration Escitalopram Oxalate 20 mg 08/11/20 09:00 09/03/20 08:10 Escitalopram Oxalate 20 Mg Tablet PO 20 mg DAILY HARPREET Administration Furosemide 40 mg 08/22/20 07:30 09/03/20 08:11 Furosemide 40 Mg Tab PO 40 mg DAILY-AC HARPREET Administration Gabapentin 300 mg 08/11/20 09:00 09/03/20 08:10 Gabapentin 300 Mg Cap PO 300 mg DAILY HARPREET Administration Guaifenesin/Dextromethorphan 15 ml 08/10/20 10:40 08/23/20 21:01 Guaifenesin Dm 100-10/5 Ml Udcup PO 15 ml Q4H PRN Administration Cough Daptomycin 500 mg/ Sodium 100 mls @ 200 mls/hr 08/22/20 14:00 09/02/20 14:48 Chloride IVPB 10/03/20 14:01 100 mls Q24HR HARPREET Administration Insulin Glargine 25 units/ 0.25 mls @ 0 mls/hr 09/01/20 09:00 09/03/20 08:11 Miscellaneous Medication SC 0.25 mls QAM HARPREET Administration Insulin Glargine 50 units/ 0.5 mls @ 0 mls/hr 09/01/20 21:00 09/02/20 21:09 Miscellaneous Medication SC 0.5 mls HS HARPREET Administration Insulin Human Lispro 0 units 08/10/20 14:50 08/31/20 20:39 Humalog 300 Units/3 Ml Vial SC 5 unit .BEDTIME SLIDING SC PRN Administration Bedtime Correctional Scale Insulin Human Lispro 0 units 08/31/20 13:39 09/03/20 05:24 Humalog 300 Units/3 Ml Vial SC 8 unit .MODERATE SLIDING SC PRN Administration Moderate Correctional Scale Melatonin 6 mg 08/11/20 21:00 09/02/20 21:09 Melatonin 3 Mg Tab PO 6 mg HS HARPREET Administration Methylcellulose 500 mg 08/16/20 09:00 09/03/20 08:10 Citrucel 500 Mg Tab PO 500 mg DAILY HARPREET Administration Multivitamins 1 tab 08/11/20 09:00 09/03/20 09:27 Multivit, Chewable Sf 1 Tab PO 1 tab DAILY HARPREET Administration Propranolol HCl 10 mg 08/17/20 09:00 09/03/20 09:27 Propranolol 10 Mg Tab PO 10 mg DAILY HARPREET Administration Sodium Chloride 1 gm 08/12/20 09:00 09/03/20 08:10 Sodium Chloride 1 Gm Tab PO 1 gm BID HARPREET Administration Sodium Chloride 10 ml 08/12/20 09:00 09/03/20 08:11 Flush - Normal Saline 10 Ml Syringe IVF 10 ml Q12HR HARPREET Administration Sodium Chloride 10 ml 08/12/20 09:00 08/19/20 06:09 Flush - Normal Saline 10 Ml Syringe IVF 10 ml PRN PRN Administration Saline Flush Spironolactone 50 mg 09/03/20 08:00 09/03/20 08:10 Spironolactone 25 Mg Tab PO 50 mg QAM-WM HARPREET Administration Sucralfate 1 gm 08/10/20 14:47 08/24/20 08:31 Sucralfate 1 Gm/10 Ml Udcup PO 1 gm QID PRN Administration ODNYOPHAGIA - Exam General Appearance: awake alert Neck: no JVD Heart: RRR, II/IV Heart - other findings: diastolic Respiratory: no wheezes, no rales Gastrointestinal: soft, normal bowel sounds Extremities: no edema Hosp A/P (1) 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 Code(s): I33.0 - ACUTE AND SUBACUTE INFECTIVE ENDOCARDITIS; B95.8 - UNSP STAPHYLOCOCCUS THE CAUSE OF DISEASES CLASSD ELSWHR Status: Acute (2) Aortic valve insufficiency due to infection Code(s): I35.1 - NONRHEUMATIC AORTIC (VALVE) INSUFFICIENCY Status: Acute (3) Cirrhosis of liver Code(s): K74.60 - UNSPECIFIED CIRRHOSIS OF LIVER Status: Chronic Qualifiers: Hepatic cirrhosis type: alcoholic cirrhosis Ascites presence: unspecified Qualified Code(s): K70.30 - Alcoholic cirrhosis of liver without ascites (4) Bacteremia due to Gram-positive bacteria Code(s): R78.81 - BACTEREMIA Status: Acute (5) Coagulopathy Status: Chronic (6) DM type 2 (diabetes mellitus, type 2) Status: Chronic Qualifiers: Diabetes mellitus mcc insulin use: with mcc use Diabetes mellitus complication status: without complication Qualified Code(s): E11.9 - Type 2 diabetes mellitus without complications; Z79.4 - MCC (current) use of insulin (7) Hypertension Code(s): I10 - ESSENTIAL (PRIMARY) HYPERTENSION Status: Chronic Qualifiers: Hypertension type: essential hypertension Qualified Code(s): I10 - Essential (primary) hypertension (8) COVID-19 Code(s): U07.1 - COVID-19 Status: Acute (9) Anemia Code(s): D64.9 - ANEMIA, UNSPECIFIED Status: Chronic Qualifiers: Anemia type: other cause Other causes of anemia: chronic disease, other Qualified Code(s): D63.8 - Anemia in other chronic diseases classified elsewhere - Plan needs iv daptomycin through 10/03/20 arrange home Os, cont current tx for cirrrhosis Hg ^.*. FOBT , transfuse
[2020-09-03] MEDS: DAPTOmycin 500 MG in Sodium Chloride 0.9% 100 ML IVPB SCH (16:00)
[2020-09-03] MEDS: Insulin Glargine 50 UNITS in Pre-Filled Syringe 1 EACH SC SCH (21:31)
[2020-09-03] MEDS: Melatonin 3 MG TAB PO SCH (21:33)
[2020-09-04] MEDS: Albuterol 200 PUFF (6.7GM INHALER) INH SCH ×5 (01:37→18:12)
[2020-09-04] MEDS: HumaLOG 300 UNITS/3 ML VIAL SC PRN ×3 (05:27→16:23)
[2020-09-04 08:05] LABS: Hemoglobin 7.8 g/dL (14.0-18.0); Mean Corpuscular HGB CONC 31.8 g/dL (32.0-36.0); Mean Corpuscular Hemoglobin 28.3 pg (27.0-31.0); Mean Corpuscular Volume 88.7 fL (78.0-98.0); Mean Platelet Volume 5.5 fL (7.4-10.4); Platelet Count 44 thou/uL (130-400); RBC Distribution Width 25.1 % (11.5-14.5); Red Blood Cell (RBC) Count 2.77 mill/uL (4.70-6.10); White Blood Cell (WBC) Count 11.9 thou/uL (4.8-10.8)
[2020-09-04] MEDS: Sodium Chloride 1 GM TAB PO SCH (08:13)
[2020-09-04] MEDS: Spironolactone 25 MG TAB PO SCH (08:13)
[2020-09-04] MEDS: Bupropion 150 MG XL TAB PO SCH (08:13)
[2020-09-04] MEDS: Citrucel 500 MG TAB PO SCH (08:14)
[2020-09-04] MEDS: Escitalopram Oxalate 20 mg Tablet PO SCH (08:14)
[2020-09-04] MEDS: Gabapentin 300 MG CAP PO SCH (08:14)
[2020-09-04] MEDS: Furosemide 40 MG TAB PO SCH (08:15)
[2020-09-04] MEDS: Dexamethasone 4 mg/ml Vial SLOW IVP SCH (08:16)
[2020-09-04 09:04] LABS: Band 7 % (5-11); Bite Cells SLIGHT = 2-5 cells (100X) (0-1/hpf); Hypochromia SLIGHT = 6-15 cells (100X) (0-5/hpf); Lymphocytes 21 % (21-51); MDiff Complete? YES; Monocytes 11 % (0-10); Neutrophil 60 % (42-75); Platelet Morphology Comment Appears Decreased; Polychromasia MODERATE = 3-4 cells (100X) (0-2/hpf); Reactive Lymphocytes 1 % (0-10); Schistocytes SLIGHT = 2-5 cells (100X) (0-1/hpf)
[2020-09-04] MEDS: Multivit, Chewable SF 1 TAB PO SCH (09:16)
[2020-09-04] MEDS: Insulin Glargine 25 UNITS in Pre-Filled Syringe 1 EACH SC SCH (09:16)
[2020-09-04] MEDS: Propranolol 10 MG TAB PO SCH (09:16)
[2020-09-04 15:50] LABS: Hemoglobin 7.9 g/dL (14.0-18.0)
[2020-09-04] MEDS: DAPTOmycin 500 MG in Sodium Chloride 0.9% 100 ML IVPB SCH (16:12)
--- NOTE | 2020-09-04 16:45 | DIS ---
DATE OF ADMISSION: 08/10/2020 DATE OF DISCHARGE: 09/04/2020 PRIMARY CARE PHYSICIAN: Ludwig Cabezas. DISPOSITION: Discharged to home. FINAL DIAGNOSES: Endocarditis with Staphylococcus sciuri, aortic insufficiency due to staph endocarditis, acute respiratory failure, COVID-19 infection, cirrhosis of the liver with coagulopathy, demand ischemia of the myocardium, encephalopathy, diabetes mellitus type 2, hypertension. DISCHARGE MEDICATIONS: 1. Sucralfate 1 g p.o. q.i.d. 2. Escitalopram 20 mg a day. 3. Glipizide 5 mg a day. 4. Ferrous sulfate 325 mg a day. 5. Wellbutrin 150 mg a day. 6. Spironolactone 50 mg a day. 7. Propranolol 10 mg a day. 8. Insulin glargine 25 units a.m., 50 p.m. 9. Gabapentin 300 mg a day. 10. Lasix 40 mg a day. 11. Daptomycin 500 mg IV piggyback q.24 hours. ALLERGIES: PENICILLINS, VANCOMYCIN, PIPER INHIBITORS, LISINOPRIL. CODE STATUS: DNAR. DIET: Diabetic. PENDING AT TIME OF DISCHARGE: Nothing. HOSPITAL COURSE: The patient was admitted to the Hospitalist Service through [facility] with recent fall and back pain. He was found to have new pleural effusions and worsening anasarca, elevated troponins. Pertinent laboratory; white count 10.7 with left shift, hemoglobin 8.1, platelet count 78,000. INR was 2.7. He was on no anticoagulants as a result of his chronic liver failure. D-dimer was 9.14. Sodium 130, potassium 3, CO2 17, BUN 7, creatinine 0.64, lactic acid was 1.4. Bilirubin was up to 8.3. AST was 44. During his hospital stay, he was seen in consultation by Dr. Marlon Shane, Infectious Disease; Yury Warner, Cardiology; Reinier Velázquez, Gastroenterology; Chase Roland, Cardiovascular Surgery; Ace Nair, Pulmonology and their colleagues. Procedures done on 08/14/2020, PICC line was placed. On 08/10/2020, Dr. Shane saw him and started on cefazolin 2 g q.[address] Shane. He ordered a PICC line. He recommended consultation by Dr. Warner for a transesophageal echocardiogram. His transesophageal echocardiogram showed an ejection fraction of 30% to 40%, severe aortic regurgitation with thickened valve leaflets and a mass suggestive of vegetation consistent with endocarditis. On 08/13/2020, cardiology progress noted his shortness of breath doing better after IV Lasix. Recommended cardiovascular surgery consultation. Dr. Chase Roland saw the patient on 08/13/2020. He considered him an unacceptable surgical candidate, and due to his severe valve insufficiency etc, not a TAVR candidate. On 08/16/2020, comments were that his prognosis was poor. He was continued on antibiotics. On 08/19/2020, I first saw this patient personally. At that time, he had minimal shortness of breath with exertion. He was on IV antibiotics. He had a 2/3 aortic diastolic murmur. He had a positive code status and was in isolation. I just got that from son-in-law. Dr. Nair's note on the 19 of August, noted he was comfortable. Hemoglobin was stable at 8. Platelets were still low. He was moved out of intermediate care into a monitored bed. He was eventually moved to a non-monitored bed. On 08/23/2020, he was comfortable with occasional cough. Diagnoses remain the same, cirrhosis, type 2 diabetes, bacteremia with Staphylococcus sciuri bacteremia, aortic valve endocarditis along with SARS-COVID positivity. At that point, he was treated with remdesivir. He was already on glucocorticoids. At this point, he had been changed from cephalosporins to daptomycin because of his allergy to vancomycin. On 08/30/2020, he was more comfortable. Diagnosis was the same. Therapy was continued. On 09/01/2020, he was ambulating without complaints with a walker. He was still on daptomycin. He was on Lasix and a beta emily for his cirrhosis. He had been receiving Lasix for his edema, ascites. 24 hours before discharge, his hemoglobin was only 6.8. He got 2 units of packed cells. After the 1st unit, he was up to 7.8. He was still given a 2nd one. Today when I saw him, vital signs were stable. He was still on oxygen 3 L per nasal cannula. New prescriptions were written. His physical exam included a clear chest with grade 2 diastolic aortic insufficiency murmur. No edema. He is going home on home O2 with a PICC line to continue daptomycin IV through October 03. He has been asked to see his primary care provider in [address] Shane in 1 week. We will continue to monitor. This patient's prognosis is poor because of the severe aortic insufficiency from his endocarditis and valvular destruction. Unfortunately, he is considered a very poor surgical candidate. 40 minutes was spent preparing this discharge today. 40 minutes spent preparing discharge Job ID: [id number] MTDAngely
[2020-09-04 18:09] VITALS: BP 119/46; TEMP 98.5
--- NOTE | 2020-09-07 03:09 | PQF ---
CLINICAL DOCUMENTATION CLARIFICATION FORM: Dear : Chelsey Dunbar Date / Time: 09/07/2020 Please exercise your independent, professional judgment in responding to the clarification form. Clinical indicators are provided on the bottom of this form for your review Please check appropriate box(es) to clarify if the following diagnosis has been ruled in our ruled out: Sepsis [ z] Ruled in diagnosis [ ] Continue to treat [ ] Resolved [ ] Ruled out diagnosis [ ] Improving [ ] Cannot rule out diagnosis [ ] Other diagnosis, please specify [ ] Unable to determine Physician Signature: Date/Time: For continuity of documentation, please document condition throughout progress notes and discharge summary. Thank You. To be completed by CDI/Coding staff for physician review: Present Clinical Indicators - Signs / Symptoms / Labs Results and Location in Medical Record [X] Lactic Acid 1.5, Neutrophils 79.2, Plt count 78, Band 4 Laboratory 08/09 [X] SARS Cov 2 Rap RNA : Not detected Serology 08/09 [X] SARS Cov 2 Rap RNA : Detected Serology 08/18 [X] Blood culture: Staphylococcus sciuri Microbiology 08/09 [X] BP 126/40, Pulse 97, Resp 24, Temp 101.2 Vital signs 08/09 [X] Febrile, tachypneic, otherwise vitals within normal limits ED notes p10 08/09 [X] sepsis ED notes p11 08/09 [X] Positive blood culture H&P p4 08/10 Dr Lord [X] Staphylococcus sciuri bacteremia with Aortic valve endocarditis as the more likely scenario Consult Dr Shane 08/10 [X] Covid 19 infection DS p1 09/04 Dr Dunbar [X] Acute Respiratory failure DS p1 09/04 Dr Dunbar [X] Encephalopathy DS p1 09/04 Dr Dunbar [X] Chest Xray: There is bilateral intersititial opacities Chest Xray 08/09 Present Risk Factors Results and Location in Medical Record [X] HTN H&P p4 08/10 Dr Lord [X] DM H&P p4 08/10 Dr Lord [X] CHF H&P p4 08/10 Dr Lord [X] Smoker H&P p4 08/10 Dr Lord [X] Aortic valve endocarditis Consult Dr Shane 08/10 [X] Covid 19 infection DS p1 09/04 Dr Dunbar Present Treatments Results and Location in Medical Record [X] IV NS 1L MAR 08/10 [X] IV Cefepime 2gm DEC 18 [X] IV Clindamycin 450 mg DEC 19 [X] IV Remdesivir 200 mg DEC 19 [X] IV Lactated Ringers 1L DEC 18 [X] ID consult Consult Dr Shane 08/10 CDS/Front Clerk Signature: Thea Ba Phone #: [phone] Date/Time: 09/07/2020 This is a permanent part of the Medical Record MTDD
== END 2020-09-04 18:57 | disposition home or self-care (01) | DRG 871 ==
LOC: ERS 19:14 → 2NO 08-10 00:41 → IMCU/EMU 08-18 12:25 → T4-A 08-19 15:58
PROVIDERS: ADMIT Internal Medicine; ATTEND Internal Medicine
PROC: 8E0ZXY6 Isolation (ICD-10-PCS; 2020-08-13)
PROC: 02HV33Z Insertion of Infusion Device into Superior Vena Cava, Percutaneous Approach (ICD-10-PCS; 2020-08-14)
PROC: B548ZZA Ultrasonography of Superior Vena Cava, Guidance (ICD-10-PCS; 2020-08-14)
PROC: XW033E5 Introduction of Remdesivir Anti-infective into Peripheral Vein, Percutaneous Approach, New Technology Group 5 (ICD-10-PCS; principal; 2020-08-23)
PROC: 30233N1 Transfusion of Nonautologous Red Blood Cells into Peripheral Vein, Percutaneous Approach (ICD-10-PCS; 2020-09-03)
DX: A41.1 Sepsis due to other specified staphylococcus (principal); I33.0 Acute and subacute infective endocarditis; U07.1 COVID-19; J96.01 Acute respiratory failure with hypoxia; D68.4 Acquired coagulation factor deficiency; I24.8 Other forms of acute ischemic heart disease; K76.6 Portal hypertension; K86.1 Other chronic pancreatitis; I42.8 Other cardiomyopathies; E87.1 Hypo-osmolality and hyponatremia; E46 Unspecified protein-calorie malnutrition; I76 Septic arterial embolism; G93.49 Other encephalopathy; Z66 Do not resuscitate; I35.1 Nonrheumatic aortic (valve) insufficiency; I10 Essential (primary) hypertension; K72.10 Chronic hepatic failure without coma; F41.9 Anxiety disorder, unspecified; F32.9 Major depressive disorder, single episode, unspecified; F17.210 Nicotine dependence, cigarettes, uncomplicated; F10.20 Alcohol dependence, uncomplicated; D69.6 Thrombocytopenia, unspecified; S39.82XA Other specified injuries of lower back, initial encounter; W19.XXXA Unspecified fall, initial encounter; I27.20 Pulmonary hypertension, unspecified; K70.31 Alcoholic cirrhosis of liver with ascites; E87.6 Hypokalemia; K52.9 Noninfective gastroenteritis and colitis, unspecified; M19.90 Unspecified osteoarthritis, unspecified site; I50.9 Heart failure, unspecified; M47.816 Spondylosis without myelopathy or radiculopathy, lumbar region; E11.65 Type 2 diabetes mellitus with hyperglycemia; D63.1 Anemia in chronic kidney disease; Y95 Nosocomial condition; Z88.1 Allergy status to other antibiotic agents; Z88.8 Allergy status to other drugs, medicaments and biological substances; Z86.14 Personal history of Methicillin resistant Staphylococcus aureus infection; Z79.899 Other long term (current) drug therapy; Z79.4 Long term (current) use of insulin; Z88.0 Allergy status to penicillin; Z87.11 Personal history of peptic ulcer disease; Z68.25 Body mass index [BMI] 25.0-25.9, adult
CPT/HCPCS: 36415; 36416; 36430; 36569; 71045; 71275; 72158; 72170; 74177; 80048; 80053; 80074; 80076; 81003; 81015; 82140; 82553; 82728; 82805; 83605; 83630; 83735; 83880; 84443; 84484; 85007; 85025; 85027; 85379; 85610; 85652; 85730; 86140; 86850; 86900; 86901; 87040; 87045; 87046; 87077; 87086; 87149; 87186; 87324; 87328; 87329; 87427; 87449; 87635; 93005; 93306; 94640; 96365; 96366; 96375; C1751; J0690; J0692; J0878; J1100; J1642; J1644; J1650; J1815; J1940; J2405; J2920; J3475; J3490; J7050; J7620; P9016; Q9967; U0002; U0003

== ENCOUNTER 2020-09-15 21:30 | Inpatient (IN) | payer SELFPAY ==
[~2020-09-15 21:30] MED LIST changes: -Iopamidol 370 76% 100 ML VIAL ONE; +Iopamidol-370 76% 500 ML 1 ML ONE
--- NOTE | 2020-09-15 22:18 | RAD ---
Exam: Chest one view HISTORY:Hypotensive. Cirrhosis Comparison: 08/23/2020, 08/25/2020 FINDINGS: Cardiac silhouette:Cardiomegaly. Aorta: Unremarkable Pulmonary vessels: Normal Costophrenic angles: Clear LUNGS: Redemonstration of multifocal interstitial and alveolar opacities. The degree of opacification has decreased. Additional findings: Left sided PICC line terminates in the region of the superior vena cava. Pneumothorax: None Osseous abnormalities: None IMPRESSION: 1. Improved aeration. Residual interstitial and alveolar opacities do remain
[2020-09-15 22:44] LABS: Hemoglobin 6.9 g/dL (14.0-18.0); Mean Corpuscular HGB CONC 30.6 g/dL (32.0-36.0); Mean Corpuscular Hemoglobin 29.6 pg (27.0-31.0); Mean Corpuscular Volume 96.7 fL (78.0-98.0); RBC Distribution Width 23.9 % (11.5-14.5); Red Blood Cell (RBC) Count 2.33 mill/uL (4.70-6.10)
[2020-09-15 22:45] LABS: ALT (SGPT) 31 U/L (8-55); AST (SGOT) 39 U/L (5-34); Albumin 1.7 g/dL (3.5-5.0); Alkaline Phosphatase 172 U/L (40-110); Anion Gap 12 mmol/L (10-20); BUN (Urea Nitrogen) 14 mg/dL (8.4-25.7); Bilirubin, Total 10.6 mg/dL (0.2-1.2); CK (CPK) 74 U/L (30-200); Calc. Creatinine Clearance 0 mL/min (70-130); Calcium 7.2 mg/dL (7.8-10.44); Carbon Dioxide 20 mmol/L (22-29); Chloride 102 mmol/L (98-107); Globulin 2.8 g/dL (2.4-3.5); Glucose 97 mg/dL (70-105); Protein, Total 4.5 g/dL (6.0-8.3); Sodium 131 mmol/L (136-145)
[2020-09-15 22:51] LABS: Potassium 2.9 mmol/L (3.5-5.1)
[2020-09-15 22:52] LABS: Anisocytosis MODERATE=16-30 cells (100X) (0-5/hpf); Band 13 % (5-11); Lymphocytes 15 % (21-51); MDiff Complete? YES; Mean Platelet Volume 13.4 fL (7.4-10.4); Monocytes 11 % (0-10); Neutrophil 61 % (42-75); Platelet Count 35 thou/uL (130-400); Platelet Morphology Comment Appears Decreased; White Blood Cell (WBC) Count 6.8 thou/uL (4.8-10.8)
--- NOTE | 2020-09-15 23:36 | CT ---
Exam: CT angiogram of the chest HISTORY: Dyspnea. COMPARISON: 08/10/2020 TECHNIQUE: CT angiogram of the chest is performed in the axial plane. Three-dimensional reformatted i mages are submitted for interpretation FINDINGS: Mediastinum: No mass, lymphadenopathy or hematoma. HEART: Cardiomegaly without significant pericardial fluid Aorta: Stable caliber of the aorta. Upper solid abdominal viscera: Cirrhotic changes of the liver. Redemonstration of varices and ascites . Surgically absent gallbladder. Redemonstration of a hypodensity in the right hepatic lobe, incompletely evaluated. Trachea and central bronchi: Patent Pleural spaces: Trace bilateral effusions Lung parenchyma: Scattered peripheral groundglass opacities have developed since the previous examina tion. These opacities are superimposed upon chronic change. There is also area of focal consolidation along the lateral aspect of the right upper lobe, right lower lobe. Interval developmen t of irregular marginated opacity in the right lower lobe measuring 2.6 x 1.4 cm, likely focal infiltrate. Pneumothorax: None Osseous structures: No lytic or blastic lesions Pulmonary arteries:Limited evaluation pulmonary arterial system due to timing of contrast bolus and d ue to patient motion. Adequate contrast opacification to the level of the lobar arteries. No filling defect to suggest thromboembolism. Limited-the segmental and subsegmental arteries. IMPRESSION: 1. Interval development of multifocal opacities, some of which are peripheral and groundglass in appe arance. Correlate for COVID 19 pneumonia. Continued surveillance to ensure resolution is recommended 2. No evidence of pulmonary artery embolism to the level of the lobar arteries. 3. Cirrhosis and varices are redemonstrated. Evidence for portal hypertension.
[2020-09-15 23:45] LABS: Bilirubin 1+ (Negative); Blood, Urine Negative (Negative); Clarity Turbid (Clear); Glucose, Urine (Dipstick) Normal (Negative); Ketone, Urine Negative (Negative); Leukocyte Negative Leu/uL (Negative); Nitrite Negative (Negative); Protein, Urine (Dipstick) Negative (Neg-Trace); Specific Gravity, Urine 1.019 (1.002-1.036); Urobilinogen 6 mg/dL (Less than 2)
[2020-09-16 01:25] LABS: Lactic Acid 1.4 mmol/L (0.5-2.2)
[2020-09-16 03:52] VITALS: BMI 29.0
[2020-09-16] MEDS ORDERED: cloNIDine 0.1 MG TAB PO PRN (03:53)
[2020-09-16] MEDS ORDERED: Acetaminophen 325 MG TAB PO PRN (03:53)
[2020-09-16] MEDS ORDERED: Guaifenesin DM 100-10/5 ML UDCUP PO PRN (03:53)
[2020-09-16] MEDS ORDERED: Promethazine HCl 12.5 MG in Sodium Chloride 0.9% 50 ML IVPB PRN (03:53)
[2020-09-16] MEDS ORDERED: hydrALAZINE 20 MG/ML VIAL SLOW IVP PRN (03:53)
[2020-09-16] MEDS ORDERED: Labetalol HCl 100 MG/20 ML VIAL SLOW IVP PRN (03:53)
[2020-09-16] MEDS ORDERED: DAPTOmycin 500 MG VIAL IVPB SCH (04:00)
[2020-09-16] MEDS ORDERED: Electrolyte Replacement Protocol 1 EACH FS PRN (04:00)
--- NOTE | 2020-09-16 04:01 | PDOC.HHP ---
Hospitalist HPI - History of Present Illness Shortness of breath, syncope History of Present Illness: Patient is a 50 year old male with PMH cirrhosis, anemia, infective endocarditis (on daptomycin until 10/03/20) on 3L o2 at home who presents to ED for shortness of breath, fevers since yesterday. Patient was recently discharged from the hospital after being diagnosed w/ infective endocarditis. Had a blood transfusion when he was discharged. Last hemoglobin before today was 7.1, now 6.9. Patient was diagnosed with Covid last month. Has been having a mild cough. Denies any nausea vomiting. Denies any focal weakness or numbness. Has been having swelling to his left lower extremity. Denies any chest pain. in ED, hgb 6.9, na 131, k 2.9, lft elevaed, CT chest concerning for covid 19 pneumonia (may be old/leftover from last admission). no PE. patient given 2u pRBC, admitted for further workup and care. Hospitalist ROS - Review of Systems Constitutional: reports: fever, sweats, weakness, malaise. denies: chills, other ENT: denies: ear pain, ear discharge, nose pain, nose discharge, nose congestion, mouth pain, mouth swelling, throat pain, throat swelling, other Respiratory: reports: cough, shortness of breath. denies: dry, hemoptysis, SOB with excertion, pleuritic pain, sputum, wheezing, other Cardiovascular: reports: light headedness. denies: chest pain, palpitations, orthopnea, paroxysmal noc. dyspnea, edema, other Gastrointestinal: denies: nausea, vomiting, abdominal pain, diarrhea, constipation, melena, hematochezia, other Genitourinary: denies: dysuria, frequency, incontinence, hematuria, retention, other Musculoskeletal: denies: neck pain, shoulder pain, arm pain, back pain, hand pain, leg pain, foot pain, other Skin: denies: rash, lesions, robert, bruising, other Neurological: denies: weakness, numbness, incoordination, change in speech, confusion, seizures, other All other systems reviewed; all pertinent +/- noted in HPI/Subj - Medication Medications: Lasix oral Sun Sep 15, 2020 21:59 RODRI De La Cruz, Jessica TABLET : Strength - 20 mg : ORAL Patient Dose: 40 mg Oral once a day. spironolactone WedSep 15, 2020 21:59 RODRI De La Cruz Miranda TABLET : Strength - 50 mg : ORAL Patient Dose: 50 mg Oral once a day. propranolol oral WedSep 15, 2020 22:00 RODRI De La Cruz Miranda tablet : Strength - 10 mg : ORAL Patient Dose: 1 tab(s) once a day. glipiZIDE WedSep 15, 2020 22:00 RODRI De La Cruz Miranda tablet : Strength - 5 mg : ORAL Patient Dose: 1 tab(s) once a day (before a meal). gabapentin WedSep 15, 2020 22:01 RODRI De La Cruz Miranda CAPSULE : Strength - 300 mg : ORAL Patient Dose: 300 mg Oral once a day (in the morning). ferrous sulfate WedSep 15, 2020 22:01 RODRI De La Cruz Miranda tablet : Strength - 325 mg (65 mg iron) : ORAL Patient Dose: Unknown. Hospitalist History - Past Medical History Endocrine: reports: Diabetes Other Medical History: DM HTN cirrhosis - Past Surgical History Past Surgical History: reports: no pertinent history, Hernia Repair - Family History Family History: reports: no pertinent history - Social History Smoking Status: Never smoker Alcohol: reports: Heavy (Used to drink heavily but quit drinking 4 months ago.) Drugs: reports: none - Exam General Appearance: NAD, awake alert Eye: PERRL, anicteric sclera ENT: normocephalic atraumatic, no oropharyngeal lesions, moist mucosa Neck: supple, symmetric, no JVD, no thyromegaly, no lymphadenopathy, no carotid bruit Heart: RRR, no murmur, no gallops, no rubs, normal peripheral pulses Respiratory: CTAB, no wheezes, no rales, no ronchi, normal chest expansion, no tachypnea, normal percussion Gastrointestinal: soft, non-tender, non-distended, normal bowel sounds, no palpable masses, no hepatomegaly, no splenomegaly, no bruit Extremities: no cyanosis, no clubbing, no edema Extremities - other findings: 3+ edema LLE Skin: normal turgor, no lesions, no rashes Neurological: cranial nerve grossly intact, normal sensation to touch, no weakness, no focal deficits, no new deficit Musculoskeletal: normal tone, normal strength, no muscle wasting Psychiatric: normal affect, normal behavior, A&O x 3 Hospitalist Results - Labs Result Diagrams: 09/15/20 22:16 09/15/20 22:16 Lab results: WBC 6.8 thou/uL (4.8-10.8) 09/15/20 22:16 Hgb 6.9 g/dL (14.0-18.0) L 09/15/20 22:16 Hct 22.6 % (42.0-52.0) L 09/15/20 22:16 MCV 96.7 fL (78.0-98.0) 09/15/20 22:16 Plt Count 35 thou/uL (130-400) L 09/15/20 22:16 Band Neuts % (Manual) 13 % (5-11) H 09/15/20 22:16 Sodium 131 mmol/L (136-145) L 09/15/20 22:16 Potassium 2.9 mmol/L (3.5-5.1) L* 09/15/20 22:16 Chloride 102 mmol/L (98-107) 09/15/20 22:16 Carbon Dioxide 20 mmol/L (22-29) L 09/15/20 22:16 BUN 14 mg/dL (8.4-25.7) 09/15/20 22:16 Creatinine 0.68 mg/dL (0.7-1.3) L 09/15/20 22:16 Glucose 97 mg/dL (70-105) 09/15/20 22:16 Lactic Acid 1.4 mmol/L (0.5-2.2) 09/16/20 00:59 Calcium 7.2 mg/dL (7.8-10.44) L 09/15/20 22:16 Total Bilirubin 10.6 mg/dL (0.2-1.2) H 09/15/20 22:16 AST 39 U/L (5-34) H 09/15/20 22:16 ALT 31 U/L (8-55) 09/15/20 22:16 Alkaline Phosphatase 172 U/L (40-110) H 09/15/20 22:16 Ammonia 45 umol/L (18-72) 09/15/20 22:16 Creatine Kinase 74 U/L (30-200) 09/15/20 22:16 Troponin I 0.026 ng/mL (< 0.028) 09/15/20 22:16 B-Natriuretic Peptide 1132.4 pg/mL (0-100) H 09/15/20 22:16 Serum Total Protein 4.5 g/dL (6.0-8.3) L 09/15/20 22:16 Albumin 1.7 g/dL (3.5-5.0) L 09/15/20 22:16 Urine Ketones Negative mg/dL (Negative) 09/15/20 22:54 Urine Blood Negative (Negative) 09/15/20 22:54 Urine Nitrite Negative (Negative) 09/15/20 22:54 Ur Leukocyte Esterase Negative Greg/uL (Negative) 09/15/20 22:54 Additional comment: VITAL SIGNS WedSep 16, 2020 00:57 RODRI De La Cruz Miranda BP: 101/48 Pulse: 102 Resp: 29 Temp: 98.3 (Oral) Pain: 0 flac O2 sat: 99 on (3L Oxygen) Time: 09/16/2020 00:57. RADIOLOGY XR Chest 1 View Portable Observe DT: Rachelle Sep 15, 2020 21:45 CXRP Exam: Chest one view HISTORY:Hypotensive. Cirrhosis Comparison: 08/23/2020, 08/25/2020 FINDINGS: Cardiac silhouette:Cardiomegaly. Aorta: Unremarkable Pulmonary vessels: Normal Costophrenic angles: Clear LUNGS: Redemonstration of multifocal interstitial and alveolar opacities. The degree of opacification has decreased. Additional findings: Left sided PICC line terminates in the region of the superior vena cava. Pneumothorax: None Osseous abnormalities: None IMPRESSION: 1. Improved aeration. Residual interstitial and alveolar opacities do remain Hospitalist H&P A/P - Plan Plan: Patient is a 50 year old male with PMH cirrhosis, anemia, infective endocarditis (on daptomycin until 10/03/20) on 3L o2 at home who presents to ED for shortness of breath, fevers since yesterday. # acute and chronic anemia # shortness of breath # cirrhosis Patient was recently discharged from the hospital after being diagnosed w/ infective endocarditis. Had a blood transfusion when he was discharged. Last hemoglobin before today was 7.1, now 6.9. Patient was diagnosed with Covid last month. Has been having a mild cough. Denies any nausea vomiting. Denies any foc al weakness or numbness. Has been having swelling to his left lower extremity. Denies any chest pain. in ED, hgb 6.9, na 131, k 2.9, lft elevaed, CT chest concerning for covid 19 pneumonia (may be old/leftover from last admission). no PE. patient given 2u pRBC, admitted for further workup and care. - 2u pRBC ordered - PT/OT, consider placement # hyponatremia # hypokalemia - replete PRN # recent COVID 19 pneumonia - imaging still shows findings concening for covid, likely left over from last admission. # infective endocarditis - continue daptomycin until 10/03, has PICC
[2020-09-16] MEDS ORDERED: Potassium Chloride 20 MEQ TAB PO SCH ×2 (04:15→09:45)
[2020-09-16] MEDS ORDERED: Cipro 250 MG TAB PO SCH (06:00)
[2020-09-16] MEDS ORDERED: Dextrose 50% Abboject 50 ML SYRINGE SLOW IVP PRN (06:55)
[2020-09-16] MEDS ORDERED: Dextrose 5% in Water 1,000 ML IV PRN (06:55)
[2020-09-16] MEDS: metroNIDAZOLE 500 MG TAB PO SCH ×3 (06:58→17:44)
[2020-09-16] MEDS: Polyethylene Glycol 3350 17 GM Packet PO SCH (08:22)
[2020-09-16] MEDS: Furosemide 40 MG TAB PO SCH (08:23)
[2020-09-16] MEDS: Spironolactone 25 MG TAB PO SCH (08:23)
[2020-09-16] MEDS: Gabapentin 300 MG CAP PO SCH (08:24)
[2020-09-16] MEDS: Sucralfate 1 GM TAB PO SCH ×4 (08:24→21:12)
[2020-09-16] MEDS: glipiZIDE 5 MG TAB PO SCH (08:24)
[2020-09-16 08:26] LABS: Critical Call w/ Read Back 3NW.RR
[2020-09-16 08:27] LABS: Hemoglobin 7.5 g/dL (14.0-18.0); Mean Corpuscular HGB CONC 31.2 g/dL (32.0-36.0); Mean Corpuscular Hemoglobin 29.6 pg (27.0-31.0); Mean Corpuscular Volume 94.9 fL (78.0-98.0); Platelet Count 24 thou/uL (130-400); RBC Distribution Width 21.6 % (11.5-14.5); Red Blood Cell (RBC) Count 2.53 mill/uL (4.70-6.10); White Blood Cell (WBC) Count 6.2 thou/uL (4.8-10.8)
[2020-09-16 08:41] LABS: #Eosinphils 0.1 thou/uL (0.0-0.7); #Lymphocytes 1.5 thou/uL (1.20-3.40); #Monocytes 0.9 thou/uL (0.11-0.59); #Neutrophils 3.7 thou/uL (1.40-6.50); %Basophils 0.3 % (0.0-1.0); %Eosinophils 1.9 % (0.0-10.0); %Lymphocytes 23.6 % (21.0-51.0); %Monocytes 14.3 % (0.0-10.0); Anisocytosis MODERATE=16-30 cells (100X) (0-5/hpf); Elliptocytes SLIGHT = 2-5 cells (100X) (0-1/hpf); Hypochromia SLIGHT = 6-15 cells (100X) (0-5/hpf); MDiff Complete? YES; Platelet Morphology Comment Appears Decreased; Poikilocytosis SLIGHT = 6-15 cells (100X) (0-5/hpf); Polychromasia SLIGHT = 2-3 cells (100X) (0-2/hpf)
[2020-09-16 08:43] LABS: Potassium 3.1 mmol/L (3.5-5.1)
[2020-09-16] MEDS: Pantoprazole 40 MG VIAL IVP SCH ×2 (09:05→21:12)
[2020-09-16] MEDS: DAPTOmycin 500 MG in Sodium Chloride 0.9% 100 ML IVPB SCH (11:00)
[2020-09-16 17:30] LABS: Bilirubin, Direct 4.6 mg/dL (0.1-0.3); Bilirubin, Total 11.3 mg/dL (0.2-1.2)
--- NOTE | 2020-09-16 18:21 | PDOC.BPN ---
- Brief Progress Note Encounter Date: 09/16/20 Patient was seen and examined in bedhe had Covid pneumonia/endocarditis on daptomycin on his last admission. Patient was admitted overnight on account of on account of worsening shortness of breath and fevers. He complained of claustrophobia and difficulty breathing when I went to see him although he was saturating at 100% on 2 L. He wanted to walk out of the room AMA if possible. I told him physical therapy will come help mobilize and move him around. He had significant thrombocytopenia which seems to be chronic however I consulted heme-onc to evaluate the etiology including possible daptomycin/sepsis. Also consulted ID on account of his endocarditis with fevers and worsening general status to reevaluate management. In the meanwhile he will continue on daptomycin as prescribed on previous admission and monitor closely
--- NOTE | 2020-09-16 22:08 | CON ---
DATE OF CONSULTATION: REASON FOR CONSULT: Anemia and thrombocytopenia. HISTORY OF PRESENT ILLNESS: Mr. Crowley is a 50-year-old gentleman with past medical history of cirrhosis, portal hypertension, anemia, recent COVID-19 infection, and infective endocarditis, who was admitted to this facility yesterday with complaints of shortness of breath and fever. He was recently discharged from this facility on September 04. He spent almost a month here for COVID-19 infection and endocarditis. He was not felt to be a candidate for a valve replacement or a TAVR. He was started on antibiotics and has being managed by Infectious Disease. On this admission, he had a hemoglobin of 6.9 and a platelet count of 35,000. This is similar to where he was when he left this facility a week ago. He was transfused on prior admission. He has been given 2 units of blood this morning. The patient was seen at bedside. He has no complaints at this time. He is clearly jaundiced, has petechiae and multiple areas of oozing from his nose, mouth, and rectum. He has a very large bruise on his right hip from a prior fall. No wet purpura noted. The patient apparently continues to drink and smoke. PAST MEDICAL HISTORY: 1. Alcoholic liver cirrhosis with coagulopathy. 2. Portal hypertension. 3. Staph endocarditis. 4. COVID-19 infection. 5. Diabetes mellitus type 2. 6. Hypertension. PAST SURGICAL HISTORY: 1. Hernia repair. 2. Neck surgery. 3. Back surgery. ALLERGIES: TO PENICILLIN, VANCOMYCIN, LISINOPRIL, PIPER INHIBITORS. CURRENT MEDICATIONS: 1. [place]. 2. Cipro. 3. Catapres. 4. Daptomycin. 5. Lasix. 6. Neurontin. 7. Humalog. 8. Flagyl. 9. Protonix. 10. MiraLAX. 11. Aldactone. 12. Carafate. FAMILY HISTORY: Noncontributory. SOCIAL HISTORY: Prior heavy alcohol intake. Prior smoker. REVIEW OF SYSTEMS: 12-point review of systems is negative except for noted in HPI. PHYSICAL EXAMINATION: VITAL SIGNS: Temperature is 97.9, pulse is 85, respiratory rate 24, BP is 115/54. He is 100% on room air. GENERAL: Chronically ill-appearing, disheveled male, in no acute distress. HEENT: Normocephalic, atraumatic. Pupils are equal and reactive to light. His sclerae are icteric. NECK: Supple. CV: Regular rate and rhythm. LUNGS: Clear. ABDOMEN: Distended. He has positive bowel sounds. SKIN: He is jaundiced. HEMATOLOGICAL: Again scattered bruising on his arms. He has petechiae on his lower extremities and a large bruise on his right hip from prior fall. NEUROLOGICAL: Nonfocal. PERTINENT LABORATORY DATA AND X-RAYS: Current WBCs are 6.2, hemoglobin 7.5, hematocrit 24.0, platelet count 24,000, 60% neutrophils, 24% lymphocytes. Sodium is 131, potassium 2.9, chloride 102, CO2 is 20, BUN is 14, creatinine 0.68, calcium 7.2, bilirubin 10.6, AST is 39, ALT is 31, alkaline phosphatase is 172. Serum total protein is 4.5, albumin 1.7, globulin 2.8. BNP is 1132. Ammonia is 45. Troponin is negative. CT angio showed no pulmonary embolism, but interval development of multifocal opacities with possible COVID-19 pneumonia, cirrhosis, and varices with evidence of portal hypertension. ASSESSMENT: 1. Alcoholic cirrhosis with coagulopathy. 2. Thrombocytopenia secondary to liver disease and portal hypertension. 3. Anemia of chronic disease. 4. Hyperbilirubinemia. DISCUSSION: The patient's anemia is similar to where he was on prior hospitalization. He does have evidence of oozing from his nose, mouth, and skin. He has worsening bilirubin. We will check conjugated bilirubin, although I do not feel that he is hemolyzing. His low platelets are again from his liver disease. Would not recommend transfusion unless platelets falls below 20,000. Would consider a GI consult if there is worsening liver function. He is on appropriate antibiotics. Case has been discussed with Dr. Lozano. We will follow along with his hospitalization. Thank you for the consult. Job ID: [id number]
--- NOTE | 2020-09-16 23:43 | CON ---
DATE OF CONSULTATION: 09/16/2020 REASON FOR CONSULTATION: Dyspnea and evaluate for the etiology and relationship to the recent diagnosis of SARS-CoV-2 infection and endocarditis. HISTORY OF PRESENT ILLNESS: A 50-year-old patient with a history of alcoholism with advanced liver disease associated with cirrhosis, portal hypertension. I have seen him 4 or 5 times, the last one was at the end of July. This patient in addition to liver cirrhosis from alcoholism, has a history of Wernicke encephalopathy, type 2 diabetes and MRSA bacteremia treated to completion. The second one episode of bacteremia due to group B strep, Enterococcus, and then he had bacteremia due to Staphylococcus sciuri, which is a coagulase-negative Staphylococcus. Initially, we did not feel that there was a significant isolate, but subsequently repeat echocardiogram documented a vegetation with a clear-cut aortic valve endocarditis. One of the strains was susceptible to beta lactamase, but the other strain was found to be methicillin-resistant, so we had to treat him with daptomycin. He started treatment in the hospital with vancomycin. The CV surgeon was consulted, but Dr. Roland felt that he had an unacceptable surgical risk, so conservative management was recommended. There is a complicating factor, the patient developed pneumonia during the hospital stay with conversion of his SARS-CoV-2 PCR, so he developed problems with desaturation and became significantly hypoxemic, but luckily did not progress to severe SARS-COV-2 manifestation. So, his end date of therapy for the endocarditis is calculated as October 03 and he is still receiving treatment. He was eventually discharged home. He stayed with his mother I think and then finally went home. He developed anxiety from difficulty breathing and came to the emergency room, was admitted. He actually does have oxygen at home at 3 L nasal cannula, so he was having issues with activities of daily living and reportedly having fevers since yesterday. So on arrival, his BP was 100/44, and pulse 104, respiratory rate 27, O2 saturation 96 at 3 L. His temperature is 99.8. He was jaundiced and tachypneic and some scleral icterus. Lungs with clear breath sounds. No wheezing. Heart exam was described as normal. Abdomen was not tender. There was edema in lower extremity, particularly the left side. Other findings included a white cell count of 6.8, hemoglobin 6.9, MCV 96 and platelets 35 with 61% neutrophils and 13% bands and sodium 131, creatinine 0.68 and bilirubin was 10.6. His usual bilirubin runs anywhere from 4-6 chronically. AST was 39. Alkaline phosphatase 172, albumin 1.7. INR was 2.5. Currently, Mr. Crowley is awake. He is breathing on room air with O2 saturations 96%, and during the hospital stay, he has remained afebrile. He denies any headaches, mild dyspnea, no chest pain. No cough, no abdominal pain. No diarrhea. Voiding without difficulty. Edema in lower extremities. MEDICAL HISTORY: Alcoholism, end-stage liver disease, portal hypertension, hepatic encephalopathy, type 2 diabetes, chronic pancreatitis, MRSA bacteremia treated and resolved in the past. Group B strep bacteremia transient and now Staphylococcus sciuri bacteremia with aortic valve endocarditis on daptomycin. He also had SARS-CoV-2 infection with moderate to severe pneumonia, probably nosocomial. SOCIAL HISTORY: Had been drinking up till July and still smoking. Lives by himself in [place]. ALLERGIES: PENICILLIN WITH HIVES. FAMILY HISTORY: Noncontributory. CURRENT MEDICATION LIST: 1. Cipro. 2. Daptomycin. 3. Furosemide. 4. Glipizide. 5. Hydralazine. 6. Labetalol. 7. Metronidazole. PHYSICAL EXAMINATION: VITAL SIGNS: He has been afebrile here in the hospital. BP 114/56, heart rate 89, respiratory rate 20 to 24, O2 saturation 96 on room air at the moment. Multiple areas of excoriation. He has fairly deep jaundice. No lymphadenopathy. HEENT: Ocular movements are conjugate. Nasal passages are patent. Oral cavity with numerous missing teeth, yellow mucosa from deep jaundice. NECK: Supple. No jugular vein distention. LUNGS: With a few faint crackles on the right side at the base. No wheezing. CARDIOVASCULAR: S1-S2, regular rate with a soft aortic murmur. No S3. ABDOMEN: Moderately distended. A little bit of fluid wave, but not much, quite soft. No tenderness. No bladder distention. : No genital abnormalities. MUSCULOSKELETAL: No joint inflammatory activity. 3+ edema left lower extremity and 2+ edema in the right lower extremity. Stasis dermatitis noted both lower extremities. Incision on right leg from prior surgery. Pulses are 1+ in dorsalis pedis. Plantar responses are flexor. He has quite pronounced asterixis. NEUROLOGICAL: He is awake, a little bit confused, but able to answer questions, follow commands, a little bit of delay. LABORATORY DATA: Sodium 131, creatinine 0.68, bilirubin 10.6, now is 11.3. LDH 516. Urinalysis already discussed. We have 2 sets of blood cultures from 08/11. They have not been repeated. C difficile was negative. ASSESSMENT: 1. End-stage liver disease with it is Child-Resendiz stage C, MELD score is very high. He has pronounced hepatocellular failure with elevated INR, markedly elevated bilirubin, and evidence of asterixis and hepatic encephalopathy. CT of the chest demonstrated multifocal opacities which are the residuals from the COVID-19, but no pulmonary embolism and the endocarditis, which will be re-evaluated with the cultures. DISCUSSION: The patient is basically in the aftermath of his SARS-CoV-2 infection and he does not have any more active infection, just the residual from the infection with pulmonary alveolar damage. In addition to that, he has likely some element of hepatopulmonary syndrome. He is encephalopathic early mild to moderate and we need to evaluate his methicillin-resistant Staphylococcus aureus endocarditis status with blood cultures, but continue daptomycin. I would discontinue the other antimicrobials. Because of his portal hypertension, he is at risk for esophageal varices and I am surprised, he has not had a bleed yet. He probably needs some lactulose as well for his early to moderate encephalopathy. Evidently, with this degree of liver failure, his medium-term prognosis is quite poor. So the best case scenario, he will finish his endocarditis treatment on the . We are hoping for no recurrence, but then will likely have recurring admissions for complications related to his liver failure, portal hypertension, and so on. Job ID: [id number] [facility]
[2020-09-17 06:54] LABS: Mean Platelet Volume 12.3 fL (7.4-10.4); RBC Distribution Width 21.6 % (11.5-14.5)
[2020-09-17] MEDS ORDERED: Electrolyte Replacement Protocol 1 EACH FS SCH (08:15)
[2020-09-17 08:22] LABS: Platelet Count 30 thou/uL (130-400)
[2020-09-17 08:24] LABS: Hemoglobin 8.8 g/dL (14.0-18.0); Red Blood Cell (RBC) Count 2.91 mill/uL (4.70-6.10); White Blood Cell (WBC) Count 5.4 thou/uL (4.8-10.8)
[2020-09-17 08:25] LABS: Mean Corpuscular HGB CONC 31.2 g/dL (32.0-36.0); Mean Corpuscular Hemoglobin 30.1 pg (27.0-31.0); Mean Corpuscular Volume 96.5 fL (78.0-98.0)
[2020-09-17] MEDS ORDERED: Sodium Chloride 0.9% 0 ML ONE (08:29)
[2020-09-17] MEDS: Polyethylene Glycol 3350 17 GM Packet PO SCH (08:30)
[2020-09-17] MEDS: Furosemide 40 MG TAB PO SCH (08:33)
[2020-09-17] MEDS: Gabapentin 300 MG CAP PO SCH (08:33)
[2020-09-17] MEDS: Pantoprazole 40 MG VIAL IVP SCH ×2 (08:34→22:23)
[2020-09-17 08:40] LABS: ALT (SGPT) 34 U/L (8-55); AST (SGOT) 41 U/L (5-34); Albumin 1.9 g/dL (3.5-5.0); Alkaline Phosphatase 219 U/L (40-110); Anion Gap 11 mmol/L (10-20); BUN (Urea Nitrogen) 11 mg/dL (8.4-25.7); Bilirubin, Direct 4.6 mg/dL (0.1-0.3); Bilirubin, Total 11.4 mg/dL (0.2-1.2); Calc. Creatinine Clearance 196 mL/min (70-130); Calcium 7.3 mg/dL (7.8-10.44); Carbon Dioxide 22 mmol/L (22-29); Chloride 105 mmol/L (98-107); Glucose 170 mg/dL (70-105); Magnesium 1.6 mg/dL (1.6-2.6); Potassium 3.3 mmol/L (3.5-5.1); Protein, Total 4.9 g/dL (6.0-8.3); Sodium 135 mmol/L (136-145)
[2020-09-17] MEDS: DAPTOmycin 500 MG in Sodium Chloride 0.9% 100 ML IVPB SCH (08:42)
[2020-09-17] MEDS: Spironolactone 25 MG TAB PO SCH (08:52)
[2020-09-17] MEDS: glipiZIDE 5 MG TAB PO SCH (08:52)
[2020-09-17] MEDS: Sucralfate 1 GM TAB PO SCH ×4 (08:52→22:23)
[2020-09-17 09:25] LABS: Anisocytosis MODERATE=16-30 cells (100X) (0-5/hpf); Band 10 % (5-11); Eosinophils 5 % (0-10); Lymphocytes 20 % (21-51); Monocytes 10 % (0-10); Neutrophil 50 % (42-75); Platelet Morphology Comment Appears Decreased; Polychromasia MODERATE = 3-4 cells (100X) (0-2/hpf); Reactive Lymphocytes 5 % (0-10); Schistocytes SLIGHT = 2-5 cells (100X) (0-1/hpf)
[2020-09-17 09:26] LABS: MDiff Complete? YES
[2020-09-17] MEDS ORDERED: Rifaximin 550 MG TAB PO SCH (09:30)
[2020-09-17] MEDS ORDERED: Magnesium 2 GM/50 ML 2 GM in Premix Bag 1 BAG IVPB SCH (09:45)
[2020-09-17] MEDS ORDERED: Potassium Chloride 20 MEQ TAB PO SCH (09:45)
[2020-09-17] MEDS: HumaLOG 300 UNITS/3 ML VIAL SC PRN ×2 (11:08→23:14)
--- NOTE | 2020-09-17 16:49 | PDOC.HOSPP ---
- Subjective Encounter Date: 09/17/20 Encounter Time: 08:00 Subjective: Patient was seen and examined in bed. He had diarrhea overnight. Time of my evaluation was generally feeling better than a day ago. He denied any chest pain or shortness of breath. Abdomen slightly distended. No bleeding noted - Objective Vital Signs & Weight: Vital Signs (12 hours) Temp Pulse Resp BP Pulse Ox 09/17/20 15:40 97.6 F 107 H 28 H 134/63 98 09/17/20 11:30 97.8 F 102 H 28 H 132/63 100 09/17/20 08:00 97.9 F 96 26 H 109/53 L 99 09/17/20 04:57 98.4 F 94 20 105/54 L 96 Weight Weight 220 lb 9 oz Most Recent Monitor Data Heart Rate from ECG 96 I&O: 09/16/20 09/17/20 09/18/20 06:59 06:59 06:59 Intake Total 0 2340 Output Total 300 Balance 0 2040 Result Diagrams: 09/17/20 06:32 09/17/20 08:12 Additional Labs: Accuchecks 09/17/20 09/16/20 09/16/20 06:14 21:05 16:48 POC Glucose 160 H 155 H 124 H 09/16/20 11:03 POC Glucose 157 H Hospitalist ROS - Medication Medications: Active Medications Generic Name Dose Route Start Last Admin Trade Name Freq PRN Reason Stop Dose Admin Furosemide 40 mg 09/16/20 09:00 09/17/20 08:33 Furosemide 40 Mg Tab PO 40 mg DAILY HARPREET Administration Gabapentin 300 mg 09/16/20 09:00 09/17/20 08:33 Gabapentin 300 Mg Cap PO 300 mg DAILY HARPREET Administration Glipizide 5 mg 09/16/20 07:30 09/17/20 08:52 Glipizide 5 Mg Tab PO 5 mg DAILY-AC HARPREET Administration Daptomycin 500 mg/ Sodium 100 mls @ 200 mls/hr 09/16/20 09:00 09/17/20 08:42 Chloride IVPB 10/03/20 09:01 100 mls 0900 HARPREET Administration Insulin Human Lispro 0 units 09/16/20 06:55 09/17/20 11:08 Humalog 300 Units/3 Ml Vial SC 5 units .MILD SLIDING SCALE PRN Administration Mild Correctional Scale Lactulose 20 gm 09/17/20 09:00 09/17/20 08:30 Lactulose 20 Gm/30 Ml Udcup PO Not Given BID HARPREET Pantoprazole Sodium 40 mg 09/16/20 09:00 09/17/20 08:34 Pantoprazole 40 Mg Vial IVP 40 mg Q12HR HARPREET Administration Polyethylene Glycol 17 gm 09/16/20 09:00 09/17/20 08:30 Polyethylene Glycol 3350 17 Gm Packet PO Not Given DAILY HARPREET Spironolactone 50 mg 09/16/20 09:00 09/17/20 08:52 Spironolactone 25 Mg Tab PO 50 mg DAILY HARPREET Administration Sucralfate 1 gm 09/16/20 07:30 09/17/20 13:12 Sucralfate 1 Gm Tab PO 1 gm ACHS HARPREET Administration - Exam General Appearance: awake alert Eye - other findings: Pale, icteric Neck: supple Heart: RRR, no murmur, no gallops Respiratory - other findings: Air entry adequate bilaterally Gastrointestinal - other findings: Distended, no tenderness rebound tenderness or guarding. Extremities - other findings: Edema worse on right than left. Neurological: cranial nerve grossly intact, no focal deficits Psychiatric: normal affect, A&O x 3 Hosp A/P - Plan This is a 50-year-old male patient with a history of decompensated liver cirrhosis, recent Covid diagnosis, recent endocarditis currently ongoing treatment with daptomycin. He presents with worsening shortness of breath worsening since his recent discharge. Dyspnea Unclear etiologyin the setting of recent Covid diagnosis. He generally saturates 100% on room air. Continue monitoring. Decompensated liver cirrhosis With severe thrombocytopenia and ascites Plan to lactulose however had diarrheawe will hold for now. Start rifaximin and continue monitoring. GI consulted. Infective endocarditis Continue daptomycin~24 ID followappreciate input Severe thrombocytopenia Secondary to liver disease Transfuse if platelets are less than 20 Anemia Multifactorial Had 2 units of PRBC a day ago Monitor H&H Transfuse if hemoglobin less than 7 Patient Covid infection Currently out of contact precaution window. We will continue monitoring. Hyponatremia The setting of end-stage liver disease Hypokalemia For electrolyte replacement CODE STATUSDNR VTE prophylaxisSCDs for now Disposition pending improvement
--- NOTE | 2020-09-17 21:20 | CON ---
DATE OF CONSULTATION: 09/17/2020 REQUESTING PHYSICIAN: Dr. Díaz. REASON FOR CONSULTATION: Hepatic encephalopathy. HISTORY OF PRESENT ILLNESS: Arnoldo Crowley is a 50-year-old man with a history significant for end-stage liver disease, Child-Resendiz class C cirrhosis, which is secondary to prior alcohol abuse. He says he has been abstinent from alcohol for the past 8 months, though there is some discrepancy in the notes regarding this, he may have been drinking more recently. At any rate, he has a prior history of decompensation with ascites and hepatic encephalopathy. He was recently hospitalized here for an extended period of time several weeks ago with both COVID pneumonia and infective endocarditis. He is not a candidate for cardiac surgery due to the severe cirrhosis with a very high operative risk. Likewise, he is not a candidate for liver transplantation due to active infection. The plan has been to continue on IV daptomycin through at least October 03. The patient reports that he was doing okay at home for several days, but was readmitted early yesterday morning with recurrence of fevers and worsening shortness of breath. He was found to have a bit of altered mental status as well and indeed he does exhibit a bit of forgetfulness and admits to this today. He had a bit of mild asterixis, though ammonia level was normal. He has been started on rifaximin today. He was also noted to be anemic with hemoglobin 6.9. He received 2 units of RBCs and hemoglobin is up to 8.8. This is all within his chronic low baseline. He denies any abdominal pain, nausea, or change in appetite. He is on diuretics as an outpatient and he says lower extremity swelling and abdominal distention are highly variable. He does not recall taking lactulose or rifaximin at home. REVIEW OF SYSTEMS: Full review of systems including constitutional, head, eyes, ears, nose, throat, GI, , cardiovascular, respiratory, musculoskeletal, and neurologic systems is negative except as noted in the HPI. PAST MEDICAL HISTORY: Alcoholic cirrhosis; portal hypertension; portal hypertensive gastropathy, seen on EGD and colonoscopy in July 2020; infective endocarditis, currently on IV daptomycin; diabetes; hypertension; hyperlipidemia; degenerative joint disease; peptic ulcer disease; hernia repair; COVID-19 in August 2020. ALLERGIES: PENICILLIN, VANCOMYCIN, LISINOPRIL. CURRENT MEDICATIONS: 1. Daptomycin 500 mg IV daily. 2. Lasix 40 mg daily. 3. Neurontin. 4. Glipizide. 5. Insulin sliding scale. 6. Pantoprazole 40 mg IV q.12 hours. 7. MiraLAX 17 g daily. 8. Spironolactone 50 mg daily. 9. Sucralfate 1 g p.o. a.c. and at bedtime. FAMILY HISTORY: Negative for GI malignancy. SOCIAL HISTORY: He says he quit drinking all alcohol about 8 months ago. There is some discrepancy in the chart about this. Tobacco use is occasional. PHYSICAL EXAMINATION: VITAL SIGNS: Temperature 97.6, pulse 107, blood pressure 134/63, 98% oxygen saturation on 3 L nasal cannula. GENERAL: Chronically ill 50-year-old man, lying in bed comfortably, in no distress. SKIN: He is deeply jaundiced. No rashes were palpable. EYES: Scleral icterus. Extraocular movements intact. ENT: Mucous membranes moist. No oral lesions. LYMPH: No submandibular or supraclavicular lymphadenopathy. THYROID: Nontender to palpation. HEART: Regular rate and rhythm. LUNGS: Clear to auscultation bilaterally. ABDOMEN: Distended with ascites. Positive fluid wave, but still soft. Bowel sounds present. Nontender to deep palpation throughout. EXTREMITIES: 1+ bilateral lower extremity edema. NEURO: Cranial nerves 2 through 12 intact bilaterally. He has very mild asterixis. LABORATORY STUDIES: Hemoglobin initially 6.9, up to 8.8 with 2 units RBC transfusion, platelets only 30. WBC is 5.4. Sodium 135, potassium 3.3, BUN 11, creatinine 0.63. INR 2.5 on most recent labs from last month. LDH 516, total bilirubin elevated to 11.4, alkaline phosphatase 219, AST 41, ALT 34, albumin only 1.9. BNP elevated to 1132. Ammonia only 45. Lactic acid 1.4. Troponin negative. Urinalysis negative. Blood culture showing no growth at 24 hours. IMAGING STUDIES: CT angiogram of the chest on admission showed cardiomegaly. No evidence of pulmonary embolus. There are some multifocal opacities peripheral and ground-glass in appearance, likely secondary to recent COVID pneumonia. No evidence of pulmonary embolus. There is evidence of portal hypertension and nodular liver. ASSESSMENT AND PLAN: 1. Cirrhosis, Child-Resendiz class C, secondary to prior alcohol abuse, with decompensation. The patient has decompensated liver disease with coagulopathy and sequela of portal hypertension including chronic ascites. It now appears he has some degree of hepatic encephalopathy as well, though I would characterize this as mild. He had recent upper and lower endoscopy just within the past few months showing portal hypertensive gastropathy, but actually no varices of note. Overall, prognosis is poor and I agree with prior evaluation that he would be very high risk for mortality with any cardiac surgery. We will recheck LFTs and get a new INR tomorrow to be able to calculate MELD score. 2. Hepatic encephalopathy. This is mild. It does not appear he has been on any lactulose or rifaximin. He does have diarrhea from [id number], so he may not tolerate lactulose as an outpatient. I agree with starting rifaximin 550 mg twice daily. 3. Anemia, chronic. Again, he had recent upper and lower endoscopy here in July 2020 with findings of portal hypertensive gastropathy, but really no varices and colonoscopy negative except for large hemorrhoids. No plan for any repeat endoscopic investigation. He has responded well to transfusion. 4. Infective endocarditis. The patient is on IV daptomycin per Infectious Disease recommendations. Thank you for the consultation. Please call back anytime with questions or concerns. Job ID: [id number]
[2020-09-17] MEDS: Rifaximin 550 MG TAB PO SCH (23:15)
[2020-09-18] MEDS: Ondansetron PF 4 MG/2 ML Vial IVP PRN (00:07)
[2020-09-18 05:26] LABS: INR-International Normal Ratio 2.7; Prothrombin Time 28.9 sec (12.0-14.7)
[2020-09-18 05:36] LABS: ALT (SGPT) 31 U/L (8-55); AST (SGOT) 35 U/L (5-34); Albumin 1.7 g/dL (3.5-5.0); Alkaline Phosphatase 268 U/L (40-110); Anion Gap 11 mmol/L (10-20); BUN (Urea Nitrogen) 9 mg/dL (8.4-25.7); Bilirubin, Total 9.4 mg/dL (0.2-1.2); Calc. Creatinine Clearance 177 mL/min (70-130); Calcium 7.2 mg/dL (7.8-10.44); Carbon Dioxide 21 mmol/L (22-29); Chloride 103 mmol/L (98-107); Globulin 2.8 g/dL (2.4-3.5); Glucose 285 mg/dL (70-105); Phosphorus 2.5 mg/dL (2.3-4.7); Potassium 3.4 mmol/L (3.5-5.1); Protein, Total 4.5 g/dL (6.0-8.3); Sodium 132 mmol/L (136-145)
[2020-09-18] MEDS ORDERED: Magnesium 2 GM/50 ML 2 GM in Premix Bag 1 BAG IVPB SCH (06:45)
[2020-09-18] MEDS ORDERED: Potassium Chloride 20 MEQ TAB PO SCH ×2 (06:45→13:45)
[2020-09-18] MEDS: Polyethylene Glycol 3350 17 GM Packet PO SCH (09:10)
[2020-09-18] MEDS: Sucralfate 1 GM TAB PO SCH ×2 (09:22→18:00)
[2020-09-18] MEDS: Furosemide 40 MG TAB PO SCH (09:22)
[2020-09-18] MEDS: Rifaximin 550 MG TAB PO SCH ×2 (09:22→22:12)
[2020-09-18] MEDS: Spironolactone 25 MG TAB PO SCH (09:22)
[2020-09-18] MEDS: Gabapentin 300 MG CAP PO SCH (09:23)
[2020-09-18] MEDS: Pantoprazole 40 MG VIAL IVP SCH ×2 (10:21→22:12)
[2020-09-18] MEDS: DAPTOmycin 500 MG in Sodium Chloride 0.9% 100 ML IVPB SCH (10:21)
[2020-09-18 10:22] LABS: ALT (SGPT) 37 U/L (8-55); AST (SGOT) 40 U/L (5-34); Albumin 1.8 g/dL (3.5-5.0); Alkaline Phosphatase 293 U/L (40-110); Anion Gap 10 mmol/L (10-20); BUN (Urea Nitrogen) 9 mg/dL (8.4-25.7); Bilirubin, Total 10.9 mg/dL (0.2-1.2); Calc. Creatinine Clearance 190 mL/min (70-130); Calcium 7.3 mg/dL (7.8-10.44); Carbon Dioxide 22 mmol/L (22-29); Chloride 102 mmol/L (98-107); Globulin 3.2 g/dL (2.4-3.5); Glucose 184 mg/dL (70-105); Potassium 3.4 mmol/L (3.5-5.1); Sodium 131 mmol/L (136-145)
[2020-09-18 11:21] LABS: #Eosinphils 0.2 thou/uL (0.0-0.7); #Lymphocytes 2.1 thou/uL (1.20-3.40); #Monocytes 1.1 thou/uL (0.11-0.59); #Neutrophils 4.1 thou/uL (1.40-6.50); %Basophils 0.3 % (0.0-1.0); %Eosinophils 2.7 % (0.0-10.0); %Lymphocytes 28.3 % (21.0-51.0); %Monocytes 14.2 % (0.0-10.0); %Neutrophils 54.5 % (42.0-75.0); Hemoglobin 8.7 g/dL (14.0-18.0); Mean Corpuscular HGB CONC 32.6 g/dL (32.0-36.0); Mean Corpuscular Hemoglobin 34.7 pg (27.0-31.0); Mean Platelet Volume 7.7 fL (7.4-10.4); Platelet Count 20 thou/uL (130-400); RBC Distribution Width 21.7 % (11.5-14.5); White Blood Cell (WBC) Count 7.5 thou/uL (4.8-10.8)
[2020-09-18] MEDS: HumaLOG 300 UNITS/3 ML VIAL SC PRN ×2 (11:22→22:28)
[2020-09-18] MEDS ORDERED: Loperamide HCl 2 MG CAP PO PRN (12:09)
--- NOTE | 2020-09-18 17:24 | PDOC.HOSPP ---
- Subjective Encounter Date: 09/18/20 Encounter Time: 11:00 Subjective: Patient was seen and examined in bed. He felt generally better. Ongoing diarrhea. No chest pain or worsening shortness of breath. After his diarrhea this morning he was taken to the shower and unfortunately lost his PICC line. - Objective Vital Signs & Weight: Vital Signs (12 hours) Temp Pulse Resp BP Pulse Ox 09/18/20 12:00 97.4 F L 103 H 26 H 134/62 100 09/18/20 08:00 97.8 F 112 H 24 H 145/65 H 99 09/18/20 03:50 98 F 123 H 20 135/62 100 Weight Weight 220 lb 9 oz Most Recent Monitor Data Heart Rate from ECG 96 I&O: 09/17/20 09/18/20 09/19/20 06:59 06:59 06:59 Intake Total 2340 Output Total 300 Balance 0 Result Diagrams: 09/18/20 11:10 09/18/20 09:53 Additional Labs: Accuchecks 09/18/20 09/17/20 07:51 22:36 POC Glucose 157 H 211 H Hospitalist ROS - Medication Medications: Active Medications Generic Name Dose Route Start Last Admin Trade Name Freq PRN Reason Stop Dose Admin Furosemide 40 mg 09/16/20 09:00 09/18/20 09:22 Furosemide 40 Mg Tab PO 40 mg DAILY HARPREET Administration Gabapentin 300 mg 09/16/20 09:00 09/18/20 09:23 Gabapentin 300 Mg Cap PO 300 mg DAILY HARPREET Administration Daptomycin 500 mg/ Sodium 100 mls @ 200 mls/hr 09/16/20 09:00 09/18/20 10:21 Chloride IVPB 10/03/20 09:01 100 mls 0900 HARPREET Administration Insulin Human Lispro 0 units 09/16/20 06:55 09/18/20 11:22 Humalog 300 Units/3 Ml Vial SC 3 units .MILD SLIDING SCALE PRN Administration Mild Correctional Scale Lactulose 20 gm 09/17/20 09:00 09/18/20 09:10 Lactulose 20 Gm/30 Ml Udcup PO Not Given BID HARPREET Loperamide HCl 2 mg 09/18/20 12:09 09/18/20 12:36 Loperamide Hcl 2 Mg Cap PO 2 mg DAILYPRN PRN Administration Diarrhea/Loose Stools Ondansetron HCl 4 mg 09/16/20 03:53 09/18/20 00:07 Ondansetron Pf 4 Mg/2 Ml Vial IVP 4 mg Q6H PRN Administration Nausea/Vomiting use 1st Pantoprazole Sodium 40 mg 09/16/20 09:00 09/18/20 10:21 Pantoprazole 40 Mg Vial IVP 40 mg Q12HR HARPREET Administration Polyethylene Glycol 17 gm 09/16/20 09:00 09/18/20 09:10 Polyethylene Glycol 3350 17 Gm Packet PO Not Given DAILY HARPREET Rifaximin 550 mg 09/17/20 21:00 09/18/20 09:22 Rifaximin 550 Mg Tab PO 550 mg BID HARPREET Administration Sodium Chloride 10 ml 09/17/20 21:00 09/18/20 09:23 Flush - Normal Saline 10 Ml Syringe IVF 10 ml Q12HR HARPREET Administration Spironolactone 50 mg 09/16/20 09:00 09/18/20 09:22 Spironolactone 25 Mg Tab PO 50 mg DAILY HARPREET Administration Sucralfate 1 gm 09/16/20 07:30 09/18/20 09:22 Sucralfate 1 Gm Tab PO 1 gm ACHS HARPREET Administration - Exam General Appearance: awake alert Heart: RRR, no murmur, no gallops Respiratory: CTAB, no wheezes, no rales Gastrointestinal: soft, non-tender, normal bowel sounds, distended Extremities: no cyanosis, no clubbing Extremities - other findings: Pedal swelling mainly on the left Neurological: cranial nerve grossly intact, no weakness Psychiatric: normal affect, A&O x 3 Hosp A/P - Plan This is a 50-year-old male patient with a history of decompensated liver cirrhosis, recent Covid diagnosis, recent endocarditis currently ongoing treatment with daptomycin. Admitted with worsening shortness of breath since his recent discharge. He has ongoing diarrhea, anemia and severe thrombocytopenia He is generally stable but his overall outlook is poor. Given his decompensated liver disease with severe hematology complications which precludes him from any surgery including valve surgery, lack of intervention for his liver disease, I have talked about having a discussion on hospice for palliative care Dyspnea Unclear etiologyin the setting of recent Covid diagnosis. He generally saturates 100% on room air. No PE on CTA continue on daptomycin Continue monitoring. Infective endocarditis Continue daptomycin blood grew staphylococcus secrui on previous admission ID followappreciate input Decompensated liver cirrhosis With severe thrombocytopenia and ascites Plan to lactulose however had diarrheawe will hold for now. Start rifaximin and continue monitoring. GI consulted. Severe thrombocytopenia Secondary to liver disease Transfuse if platelets are less than 20 Hem/onc following Anemia Multifactorial Had 2 units of PRBC a day ago Monitor H&H Transfuse if hemoglobin less than 7 Diarrhea Ongoing diarrhea of unclear etiology C. difficile is negative We will try loperamide and monitor. IV fluid hydrationcautiously Patient Covid infection Currently out of contact precaution window. We will continue monitoring. Hyponatremia The setting of end-stage liver disease Hypokalemia For electrolyte replacement -Diabetes mellitus continue on correctional insulin -Left leg swelling this occurs intermitently according to patient will monitor repeat doppler USG if persistent CODE STATUSDNR. consulted palliative care to have a discussion of the possibility of hospice VTE prophylaxisSCDs for now Disposition pending improvement
[2020-09-18] MEDS ORDERED: Furosemide 40 MG/4 ML VIAL SLOW IVP SCH (18:15)
--- NOTE | 2020-09-18 18:55 | PRG ---
DATE OF SERVICE: 09/18/2020 SUBJECTIVE: Mr. Crowley notes that he is a little bit short of breath today. His sister is at the beside, she notes that as well. They state that he is thinking about talking with the Hospice Team tomorrow due to the fact that he cannot get a liver transplant with the infected heart valve, and with cirrhosis, he cannot get the infected heart valve operated on. His nurse notes he has been a little confused today about certain details, but not hallucinating or somnolent in any way. MEDICATIONS: 1. Tylenol. 2. DuoNeb. 3. Catapres. 4. Daptomycin. 5. Furosemide 40 once a day. 6. Hydralazine. 7. P.r.n. hydrocodone. 8. Insulin sliding scale. 9. Lactulose 20 b.i.d. 10. Protonix 40 mg q.12. 11. Phenergan p.r.n. 12. Rifaximin 500 b.i.d. 13. Spironolactone 50 mg daily. PHYSICAL EXAMINATION: VITAL SIGNS: Temperature is 98, pulse 106, blood pressure 124/54, O2 saturation 90% on 3 L. GENERAL: He has temporal wasting, muscle wasting. He has spider angioma on the chest. LUNGS: Clear. Decreased breath sounds in the right lung deng. EXTREMITIES: Reveal 3+ edema. ABDOMEN: Reveals ascites. LABORATORY DATA: White count 7.5, hemoglobin 8.7, platelet count 20,000. BUN and creatinine are 9 and 0.6. Sodium 131, potassium 3.4, bilirubin 10, AST and ALT are 40 and 37, alkaline phosphatase 293, albumin 1.8, protein 5. ASSESSMENT: 1. Endocarditis. He is not able to have valve repair because his MELD score is 24, he has 70% mortality with cardiovascular surgery. 2. Decompensated cirrhosis, alcohol-related with mild encephalopathy. He is not a candidate for liver transplant with the endocarditis ongoing. 3. With regard to his confusion, he is oriented to person, place, and he did not know the day, but he came within one day of that. He has no asterixis and his ammonia was 45. I am not sure the confusion is that much related to encephalopathy. RECOMMENDATIONS: 1. You can keep him on the lactulose and Rifaximin. 2. If you are going to treat his ascites, I would give him albumin 25 g IV q.8, increase his diuretics to 40 of Lasix b.i.d. with 100 of Aldactone b.i.d. and monitor his renal function, give him the albumin for about 2 days. 3. If he is going to continue treatment, I would also put him on 2 g sodium diet as he is eating Turkish fries, Vinson's, which are going to make his swelling worse and I will put him on a diabetic diet to help the sugar control. 4. At this time we will follow from a distance as it seems that he is going to talk . 5. I am going to give him 40 of Lasix IV this evening to help him with the shortness of breath. Please do not hesitate to contact me if I can be any further assistance in the patient's care. Job ID: [id number]
[2020-09-19] MEDS: Sucralfate 1 GM TAB PO SCH ×5 (00:41→21:56)
[2020-09-19] MEDS: HumaLOG 300 UNITS/3 ML VIAL SC PRN ×4 (06:32→21:57)
[2020-09-19 07:23] LABS: Hemoglobin 8.1 g/dL (14.0-18.0); MDiff Complete? YES; Mean Corpuscular HGB CONC 30.9 g/dL (32.0-36.0); Mean Corpuscular Hemoglobin 30.1 pg (27.0-31.0); Mean Corpuscular Volume 97.3 fL (78.0-98.0); Mean Platelet Volume 12.2 fL (7.4-10.4); Platelet Count 33 thou/uL (130-400); RBC Distribution Width 21.1 % (11.5-14.5); Red Blood Cell (RBC) Count 2.68 mill/uL (4.70-6.10); White Blood Cell (WBC) Count 7.1 thou/uL (4.8-10.8)
[2020-09-19 07:24] LABS: Anisocytosis MODERATE=16-30 cells (100X) (0-5/hpf); Band 5 % (5-11); Eosinophils 3 % (0-10); Lymphocytes 23 % (21-51); Monocytes 7 % (0-10); Myelocyte 1 % (0-0); Neutrophil 60 % (42-75); Platelet Morphology Comment Appears Decreased; Poikilocytosis SLIGHT = 6-15 cells (100X) (0-5/hpf); Polychromasia SLIGHT = 2-3 cells (100X) (0-2/hpf); Schistocytes SLIGHT = 2-5 cells (100X) (0-1/hpf)
[2020-09-19] MEDS: Pantoprazole 40 MG VIAL IVP SCH ×2 (10:17→21:56)
[2020-09-19] MEDS: Ondansetron PF 4 MG/2 ML Vial IVP PRN (10:17)
[2020-09-19] MEDS: DAPTOmycin 500 MG in Sodium Chloride 0.9% 100 ML IVPB SCH (10:18)
[2020-09-19] MEDS: Furosemide 40 MG TAB PO SCH (10:18)
[2020-09-19] MEDS: Gabapentin 300 MG CAP PO SCH (10:18)
[2020-09-19] MEDS: Polyethylene Glycol 3350 17 GM Packet PO SCH (10:19)
[2020-09-19] MEDS: Rifaximin 550 MG TAB PO SCH ×2 (10:19→21:56)
[2020-09-19] MEDS: Spironolactone 25 MG TAB PO SCH ×2 (10:20→22:00)
[2020-09-19] MEDS ORDERED: Sodium Chloride For Inhalation 0.9% 3 ML NEB ONE (12:01)
--- NOTE | 2020-09-19 17:13 | PDOC.HOSPP ---
- Subjective Encounter Date: 09/19/20 Subjective: Overall patient says he is doing okay. He did meet with hospice this morning. - Objective Vital Signs & Weight: Vital Signs (12 hours) Temp Pulse Resp BP Pulse Ox 09/19/20 11:17 98.2 F 118 H 28 H 144/63 H 98 Weight Weight 220 lb 9 oz Most Recent Monitor Data Heart Rate from ECG 96 Result Diagrams: 09/19/20 06:44 09/18/20 09:53 Additional Labs: Accuchecks 09/19/20 09/19/20 09/18/20 11:22 06:22 16:39 POC Glucose 401 H 285 H 273 H 09/17/20 09/17/20 15:48 10:59 POC Glucose 143 H 338 H Hospitalist ROS - Medication Medications: Active Medications Generic Name Dose Route Start Last Admin Trade Name Freq PRN Reason Stop Dose Admin Gabapentin 300 mg 09/16/20 09:00 09/19/20 10:18 Gabapentin 300 Mg Cap PO 300 mg DAILY HARPREET Administration Daptomycin 500 mg/ Sodium 100 mls @ 200 mls/hr 09/16/20 09:00 09/19/20 10:18 Chloride IVPB 10/03/20 09:01 100 mls 0900 HARPREET Administration Insulin Human Lispro 0 units 09/16/20 06:55 09/19/20 11:30 Humalog 300 Units/3 Ml Vial SC 6 units .MILD SLIDING SCALE PRN Administration Mild Correctional Scale Lactulose 20 gm 09/17/20 09:00 09/19/20 10:19 Lactulose 20 Gm/30 Ml Udcup PO 20 gm BID HARPREET Administration Loperamide HCl 2 mg 09/18/20 12:09 09/18/20 12:36 Loperamide Hcl 2 Mg Cap PO 2 mg DAILYPRN PRN Administration Diarrhea/Loose Stools Ondansetron HCl 4 mg 09/16/20 03:53 09/19/20 10:17 Ondansetron Pf 4 Mg/2 Ml Vial IVP 4 mg Q6H PRN Administration Nausea/Vomiting use 1st Pantoprazole Sodium 40 mg 09/16/20 09:00 09/19/20 10:17 Pantoprazole 40 Mg Vial IVP 40 mg Q12HR HARPREET Administration Polyethylene Glycol 17 gm 09/16/20 09:00 09/19/20 10:19 Polyethylene Glycol 3350 17 Gm Packet PO Not Given DAILY HARPREET Rifaximin 550 mg 09/17/20 21:00 09/19/20 10:19 Rifaximin 550 Mg Tab PO 550 mg BID HARPREET Administration Sodium Chloride 10 ml 09/17/20 21:00 09/19/20 10:21 Flush - Normal Saline 10 Ml Syringe IVF 10 ml Q12HR HARPREET Administration Sucralfate 1 gm 09/16/20 07:30 09/19/20 11:47 Sucralfate 1 Gm Tab PO Not Given ACHS HARPREET - Exam General Appearance: NAD, awake alert Heart: RRR, no murmur, no gallops, no rubs, normal peripheral pulses Respiratory: no wheezes, no ronchi, rales, tachypneic Gastrointestinal: soft, non-tender, normal bowel sounds, no palpable masses, no hepatomegaly, no splenomegaly, no bruit, distended Extremities: no cyanosis, no clubbing, 2+ LE edema Skin: normal turgor Musculoskeletal: generalized weakness Psychiatric: normal affect, normal behavior, A&O x 3 Hosp A/P (1) Cirrhosis of liver Code(s): K74.60 - UNSPECIFIED CIRRHOSIS OF LIVER Status: Chronic Qualifiers: Hepatic cirrhosis type: alcoholic cirrhosis Ascites presence: unspecified Qualified Code(s): K70.30 - Alcoholic cirrhosis of liver without ascites (2) Cirrhosis, alcoholic Code(s): K70.30 - ALCOHOLIC CIRRHOSIS OF LIVER WITHOUT ASCITES Status: Chronic Qualifiers: Ascites presence: without ascites Qualified Code(s): K70.30 - Alcoholic cirrhosis of liver without ascites (3) DM type 2 (diabetes mellitus, type 2) Status: Chronic Qualifiers: Diabetes mellitus bed bug exterminator insulin use: with chcf use Diabetes melli tus complication status: without complication Qualified Code(s): E11.9 - Type 2 diabetes mellitus without complications; Z79.4 - intermediate card tender (current) use of insulin (4) Hypertension Code(s): I10 - ESSENTIAL (PRIMARY) HYPERTENSION Status: Chronic Qualifiers: Hypertension type: essential hypertension Qualified Code(s): I10 - Essential (primary) hypertension (5) Thrombocytopenia Code(s): D69.6 - THROMBOCYTOPENIA, UNSPECIFIED Status: Chronic (6) Hypokalemia Code(s): E87.6 - HYPOKALEMIA Status: Acute (7) Anemia Code(s): D64.9 - ANEMIA, UNSPECIFIED Status: Acute (8) Anemia Code(s): D64.9 - ANEMIA, UNSPECIFIED Status: Chronic Qualifiers: Anemia type: other cause Other causes of anemia: chronic disease, other Qualified Code(s): D63.8 - Anemia in other chronic diseases classified elsewhere (9) Aortic regurgitation Code(s): I35.1 - NONRHEUMATIC AORTIC (VALVE) INSUFFICIENCY Status: Acute (10) Cardiomyopathy Code(s): I42.9 - CARDIOMYOPATHY, UNSPECIFIED Status: Acute (11) 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 Code(s): I33.0 - ACUTE AND SUBACUTE INFECTIVE ENDOCARDITIS; B95.8 - UNSP ST APHYLOCOCCUS THE CAUSE OF DISEASES CLASSD ELSWHR Status: Acute - Plan This is a 50-year-old male patient with a history of decompensated liver cirrhosis, recent Covid diagnosis, recent endocarditis currently ongoing treatment with daptomycin. Admitted with worsening shortness of breath since his recent discharge. He has ongoing diarrhea, anemia and severe thrombocytopenia He is generally stable but his overall outlook is poor. Given his decompensated liver disease with severe hematology complications which precludes him from any surgery including valve surgery, lack of intervention for his liver disease, Acute hypoxic respiratory failure: Secondary to late stage effects of COVID-19 pneumonia. May be some element of volume overload. He generally saturates 100% on room air but has persistently increased work of breathing. No PE on CTA Continue supplemental oxygen. Diuresis. Infective endocarditis: Continue daptomycin blood culture grew staphylococcus secrui on previous admission ID followappreciate input Severe aortic regurgitation: Secondary to infective endocarditis. Patient is not a candidate for surgical intervention given his decompensated liver failure and respiratory failure. Cardiomyopathy: Ejection fraction is 30 to 40%. There is severe aortic regurgitation secondary to vegetations from endocarditis. There is moderate to severe tricuspid regurgitation. Right ventricular systolic PA pressure is 64 mmHg consistent with moderate pulmonary hypertension Decompensated liver cirrhosis: With severe thrombocytopenia and ascites Continue lactulose and rifaximin GI consulted. Per GI recommendations, will increase Lasix to 40 mg IV twice daily, Aldactone to 100 mg p.o. twice daily. Add albumin 25 mg IV every 8 hours. Low-sodium diet. Severe thrombocytopenia: Secondary to liver disease Transfuse if platelets are less than 20 Hem/onc following Anemia Chronic, multifactorial Had 2 units of PRBC Monitor H&H Transfuse if hemoglobin less than 7 Diarrhea Ongoing diarrhea of unclear etiology Needs to maintain lactulose and several watery bowel movements per day to prevent hepatic encephalopathy. C. difficile is negative IV fluid hydrationcautiously Recent Covid infection Residual infiltrates on chest imaging. Persistent respiratory symptoms. Currently out of contact precaution window. We will continue monitoring. Hyponatremia Chronic Secondary to end-stage liver disease. Appears to be at his baseline. Hypokalemia Repletion as needed. Diabetes mellitus Poorly controlled. Continue to adjust insulin. Left leg swelling this occurs intermitently according to patient will monitor repeat doppler USG if persistent after aggressive diuresis. CODE STATUSDNR. VTE prophylaxisSCDs for now Disposition pending improvement
[2020-09-19] MEDS: Albumin 25% 25 GM/100 ML BOT IVPB SCH (18:35)
--- NOTE | 2020-09-19 19:27 | PRG ---
DATE OF SERVICE: 09/19/2020 SUBJECTIVE: The patient is breathing better. No chest pain. No abdominal pain. OBJECTIVE: VITAL SIGNS: Afebrile, O2 saturations are 97% on 3 L nasal cannula, blood pressure 103/43. GENERAL: Awake, oriented. LUNGS: With fairly clear breath sounds. HEART: S1 and S2. Regular rate. ABDOMEN: Soft, not distended or tender. NEUROLOGIC: Moves extremities. Still with a bit of asterixis. LABORATORY DATA: White cell count 7.1, hemoglobin 8.1, platelets 33. Creatinine 0.65. CRP 1.67. Bilirubin 10.9, AST 40, ALT 37, alkaline phosphatase 293. One set of blood cultures with coagulase-negative Staph, likely contaminant. C difficile antigen/toxin, negative. ASSESSMENT AND DISCUSSION: End-stage liver disease, pronounced hepatocellular failure with elevated INR, bilirubin, asterixis, hepatic encephalopathy. Probably, the CT chest changes are due to edema that seem to be improving. There is no evidence that the methicillin-resistant Staphylococcus aureus has recurred. Again, no evidence that the methicillin-resistant Staphylococcus aureus has recurred. He is on daptomycin and supposed to complete treatment course in 2 or 3 days and then we can discontinue daptomycin. Job ID: [id number]
[2020-09-20] MEDS: Albumin 25% 25 GM/100 ML BOT IVPB SCH ×3 (01:44→19:48)
[2020-09-20] MEDS: Furosemide 40 MG/4 ML VIAL SLOW IVP SCH ×2 (06:44→14:12)
[2020-09-20 07:03] LABS: Hemoglobin 7.1 g/dL (14.0-18.0); Mean Corpuscular HGB CONC 30.8 g/dL (32.0-36.0); Mean Corpuscular Hemoglobin 30.6 pg (27.0-31.0); Mean Corpuscular Volume 99.1 fL (78.0-98.0); Mean Platelet Volume 11.2 fL (7.4-10.4); Platelet Count 36 thou/uL (130-400); RBC Distribution Width 20.8 % (11.5-14.5); Red Blood Cell (RBC) Count 2.33 mill/uL (4.70-6.10); White Blood Cell (WBC) Count 6.2 thou/uL (4.8-10.8)
[2020-09-20 07:10] LABS: Anion Gap 13 mmol/L (10-20); BUN (Urea Nitrogen) 9 mg/dL (8.4-25.7); CRP (Inflammatory) 1.64 mg/dL (= or < 0.5); Calc. Creatinine Clearance 177 mL/min (70-130); Calcium 7.5 mg/dL (7.8-10.44); Carbon Dioxide 18 mmol/L (22-29); Chloride 102 mmol/L (98-107); Glucose 259 mg/dL (70-105); Potassium 3.4 mmol/L (3.5-5.1); Sodium 130 mmol/L (136-145)
[2020-09-20] MEDS: HumaLOG 300 UNITS/3 ML VIAL SC PRN ×4 (07:24→20:52)
[2020-09-20] MEDS: Sucralfate 1 GM TAB PO SCH ×4 (08:29→20:46)
[2020-09-20] MEDS: Rifaximin 550 MG TAB PO SCH ×2 (08:29→20:45)
[2020-09-20] MEDS: Pantoprazole 40 MG VIAL IVP SCH ×2 (08:30→20:47)
[2020-09-20] MEDS: Polyethylene Glycol 3350 17 GM Packet PO SCH (08:30)
[2020-09-20] MEDS: Spironolactone 25 MG TAB PO SCH ×2 (08:30→20:46)
[2020-09-20] MEDS: Gabapentin 300 MG CAP PO SCH (08:30)
[2020-09-20] MEDS ORDERED: Potassium Chloride 20 MEQ TAB PO SCH (08:45)
[2020-09-20] MEDS: DAPTOmycin 500 MG in Sodium Chloride 0.9% 100 ML IVPB SCH (09:04)
[2020-09-20] MEDS: Insulin Glargine 20 UNITS in Pre-Filled Syringe 1 EACH SC SCH (11:17)
[2020-09-20 12:24] LABS: Anisocytosis MODERATE=16-30 cells (100X) (0-5/hpf); Band 7 % (5-11); Eosinophils 4 % (0-10); Lymphocytes 38 % (21-51); MDiff Complete? YES; Monocytes 12 % (0-10); Neutrophil 39 % (42-75); Platelet Morphology Comment Appears Decreased; Polychromasia MODERATE = 3-4 cells (100X) (0-2/hpf)
[2020-09-20] MEDS ORDERED: Sodium Bicarbonate 2.5 MEQ/5 ML VIAL ONE (14:31)
[2020-09-20] MEDS ORDERED: Lidocaine 1% PF 5 ML VIAL ONE (14:31)
--- NOTE | 2020-09-20 16:23 | ULT ---
Ultrasound-guided paracentesis: HISTORY: Cirrhosis and ascites. Shortness of breath. FINDINGS: Informed consent obtained prior to the procedure. Preprocedural imaging demonstrated intrap eritoneal free fluid. An area was marked in the Right lower quadrant , and then meticulously prepped and draped in normal s terile fashion and anesthetized with 1% buffered lidocaine. With direct sonographic guidance, a 19-gauge needle and 5 [place] VoluBilleh catheter were advanced into the abdomen. After the return of fluid, the catheter was advanced, and the needle was removed. Approximately 3.4 L of yellow cloudy fluid was aspirated. Small amount of intraperitoneal fluid persi sts after paracentesis. However, due to multiple loops of bowel adjacent to the catheter tip, no additional fluid was able to be aspirated at this time. The introducer sheath was removed, and hemost asis was achieved with direct pressure. A dry sterile dressing was placed. The patient tolerated the procedure well and without immediate complication. IMPRESSION: Technically successful ultrasound-guided paracentesis.
--- NOTE | 2020-09-20 17:35 | PDOC.HOSPP ---
- Subjective Encounter Date: 09/20/20 Subjective: Patient does not recall meeting me yesterday. Says his appetite is very good today. He has no other complaints today. He does endorse frequent voiding. - Objective Vital Signs & Weight: Vital Signs (12 hours) Temp Pulse Resp BP Pulse Ox 09/20/20 16:40 97.8 F 99 28 H 118/53 L 98 09/20/20 11:21 97.8 F 103 H 22 H 125/60 98 09/20/20 07:47 97.8 F 106 H 21 H 126/60 100 Weight Weight 220 lb 9 oz Most Recent Monitor Data Heart Rate from ECG 96 I&O: 09/19/20 09/20/20 09/21/20 06:59 06:59 06:59 Intake Total 860 668 Balance 860 668 Result Diagrams: 09/20/20 06:31 09/20/20 06:31 Additional Labs: Accuchecks 09/20/20 09/20/20 09/19/20 16:50 11:27 21:54 POC Glucose 228 H 207 H 224 H 09/18/20 09/18/20 22:24 11:09 POC Glucose 270 H 210 H Hospitalist ROS - Medication Medications: Active Medications Generic Name Dose Route Start Last Admin Trade Name Freq PRN Reason Stop Dose Admin Furosemide 40 mg 09/20/20 06:00 09/20/20 14:12 Furosemide 40 Mg/4 Ml Vial SLOW IVP 40 mg 0600,1400 HARPREET Administration Gabapentin 300 mg 09/16/20 09:00 09/20/20 08:30 Gabapentin 300 Mg Cap PO 300 mg DAILY HARPREET Administration Daptomycin 500 mg/ Sodium 100 mls @ 200 mls/hr 09/16/20 09:00 09/20/20 09:04 Chloride IVPB 10/03/20 09:01 100 mls 0900 HARPREET Administration Insulin Glargine 20 units/ 0.2 mls @ 0 mls/hr 09/20/20 09:00 09/20/20 11:17 Miscellaneous Medication SC 0.2 mls QAM HARPREET Administration Insulin Human Lispro 0 units 09/16/20 06:55 09/20/20 17:04 Humalog 300 Units/3 Ml Vial SC 3 units .MILD SLIDING SCALE PRN Administration Mild Correctional Scale Lactulose 20 gm 09/17/20 09:00 09/20/20 08:30 Lactulose 20 Gm/30 Ml Udcup PO 20 gm BID HARPREET Administration Loperamide HCl 2 mg 09/18/20 12:09 09/18/20 12:36 Loperamide Hcl 2 Mg Cap PO 2 mg DAILYPRN PRN Administration Diarrhea/Loose Stools Ondansetron HCl 4 mg 09/16/20 03:53 09/19/20 10:17 Ondansetron Pf 4 Mg/2 Ml Vial IVP 4 mg Q6H PRN Administration Nausea/Vomiting use 1st Pantoprazole Sodium 40 mg 09/16/20 09:00 09/20/20 08:30 Pantoprazole 40 Mg Vial IVP 40 mg Q12HR HARPREET Administration Polyethylene Glycol 17 gm 09/16/20 09:00 09/20/20 08:30 Polyethylene Glycol 3350 17 Gm Packet PO 17 gm DAILY HARPREET Administration Rifaximin 550 mg 09/17/20 21:00 09/20/20 08:29 Rifaximin 550 Mg Tab PO 550 mg BID HARPREET Administration Sodium Chloride 10 ml 09/17/20 21:00 09/20/20 08:31 Flush - Normal Saline 10 Ml Syringe IVF 10 ml Q12HR HARPREET Administration Spironolactone 100 mg 09/19/20 21:00 09/20/20 08:30 Spironolactone 25 Mg Tab PO 100 mg BID HARPREET Administration Sucralfate 1 gm 09/16/20 07:30 09/20/20 17:03 Sucralfate 1 Gm Tab PO 1 gm ACHS HARPREET Administration - Exam General Appearance: NAD, awake alert General - other findings: Mildly tachypneic Heart: RRR, no murmur, no gallops, no rubs, normal peripheral pulses Heart - other findings: Tachycardic Respiratory: CTAB, no wheezes, no rales, no ronchi, normal chest expansion, tachypneic Respiratory - other findings: Diminished at bases Gastrointestinal: soft, non-tender, normal bowel sounds, no palpable masses, no hepatomegaly, no splenomegaly, no bruit, distended Extremities: 2+ LE edema Skin: normal turgor Musculoskeletal: generalized weakness Psychiatric: oriented to person, oriented to place Hosp A/P (1) Cirrhosis of liver Code(s): K74.60 - UNSPECIFIED CIRRHOSIS OF LIVER Status: Chronic Qualifiers: Hepatic cirrhosis type: alcoholic cirrhosis Ascites presence: unspecified Qualified Code(s): K70.30 - Alcoholic cirrhosis of liver without ascites (2) Cirrhosis, alcoholic Code(s): K70.30 - ALCOHOLIC CIRRHOSIS OF LIVER WITHOUT ASCITES Status: Chronic Qualifiers: Ascites presence: without ascites Qualified Code(s): K70.30 - Alcoholic cirrhosis of liver without ascites (3) DM type 2 (diabetes mellitus, type 2) Status: Chronic Qualifiers: Diabetes mellitus terminal superintendent insulin use: with terminal superintendent use Diabetes mellitus complication status: without complication Qualified Code(s): E11.9 - Type 2 diabetes mellitus without complications; Z79.4 - care home (current) use of insulin (4) Hypertension Code(s): I10 - ESSENTIAL (PRIMARY) HYPERTENSION Status: Chronic Qualifiers: Hypertension type: essential hypertension Qualified Code(s): I10 - Essential (primary) hypertension (5) Thrombocytopenia Code(s): D69.6 - THROMBOCYTOPENIA, UNSPECIFIED Status: Chronic (6) Hypokalemia Code(s): E87.6 - HYPOKALEMIA Status: Acute (7) Anemia Code(s): D64.9 - ANEMIA, UNSPECIFIED Status: Acute (8) Anemia Code(s): D64.9 - ANEMIA, UNSPECIFIED Status: Chronic Qualifiers: Anemia type: other cause Other causes of anemia: chronic disease, other Qualified Code(s): D63.8 - Anemia in other chronic diseases classified elsewhere (9) Aortic regurgitation Code(s): I35.1 - NONRHEUMATIC AORTIC (VALVE) INSUFFICIENCY Status: Acute (10) Cardiomyopathy Code(s): I42.9 - CARDIOMYOPATHY, UNSPECIFIED Status: Acute (11) 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 Code(s): I33.0 - ACUTE AND SUBACUTE INFECTIVE ENDOCARDITIS; B95.8 - UNSP STAPHYLOCOCCUS THE CAUSE OF DISEASES CLASSD ELSWHR Status: Acute (12) Hepatic encephalopathy Code(s): K72.90 - HEPATIC FAILURE, UNSPECIFIED WITHOUT COMA Status: Acute - Plan This is a 50-year-old male patient with a history of decompensated liver cirrhosis, recent Covid diagnosis, recent endocarditis currently ongoing treat ment with daptomycin. Admitted with worsening shortness of breath since his recent discharge. He has ongoing diarrhea, anemia and severe thrombocytopenia He is generally stable but his overall outlook is poor. Given his decompensated liver disease with severe hematology complications which precludes him from any surgery including valve surgery, lack of intervention for his liver disease, Acute hypoxic respiratory failure: Secondary to late stage effects of COVID-19 pneumonia. May be some element of volume overload. He generally saturates 100% on room air but has persistently increased work of breathing. No PE on CTA. Continue supplemental oxygen. Diuresis. Infective endocarditis: Continue daptomycin. This course should end in a couple of days. blood culture grew staphylococcus secrui on previous admission.. ID followappreciate input Severe aortic regurgitation: Secondary to infective endocarditis. Patient is not a candidate for surgical intervention given his decompensated liver failure and respiratory failure. Cardiomyopathy: Ejection fraction is 30 to 40%. There is severe aortic regurgitation secondary to vegetations from endocarditis. There is moderate to severe tricuspid regurgitation. Right ventricular systolic PA pressure is 64 mmHg consistent with moderate pul monary hypertension Decompensated liver cirrhosis: With severe thrombocytopenia and ascites Continue lactulose and rifaximin GI consulted. Per GI recommendations, increased Lasix to 40 mg IV twice daily, Aldactone to 100 mg p.o. twice daily. Add albumin 25 mg IV every 8 hours. Low-sodium diet. Paracentesis performed on 09/20/2020. Severe thrombocytopenia: Secondary to liver disease Transfuse if platelets are less than 20 Hem/onc following Anemia Chronic, multifactorial Had 2 units of PRBC Monitor H&H Transfuse if hemoglobin less than 7 Diarrhea Ongoing diarrhea of unclear etiology Needs to maintain lactulose and several watery bowel movements per day to prevent hepatic encephalopathy. C. difficile is negative IV fluid hydrationcautiously Recent Covid infection Residual infiltrates on chest imaging. Persistent respiratory symptoms. Currently out of contact precaution window. We will continue monitoring. Hyponatremia Chronic Secondary to end-stage liver disease. Appears to be at his baseline. Hypokalemia Repletion as needed. Diabetes mellitus Poorly controlled. Continue to adjust insulin. Left leg swelling this occurs intermitently according to patient will monitor repeat doppler USG if persistent after aggressive diuresis. CODE STATUSDNR. VTE prophylaxisSCDs for now Disposition: There was a hospice evaluation on 09/19/2020. There was some confusion about the conclusion of that meeting. Ultimately clarity was obtained on 09/20/2020 with help of the palliative care team. Family would like to pursue hospice care which can be initiated next week. Patient will be off of his daptomycin therapy in a couple of days. At that time he will be a candidate for home hospice.
[2020-09-20 17:41] LABS: RBC Count-Automated (BF) 1590 /cu.mm; WBC/Nucleated-Auto (BF) 66 uL
[2020-09-20 18:01] LABS: BF Color Yellow; Body Fluid Source Ascites Body Fluid; Clarity Hazy (Clear); Tube # EDTA
[2020-09-20 18:25] LABS: BF Segmented Neutrophils 13 %; Cell Count Non Hematic 54 %; Lymphocytes 33 %
--- NOTE | 2020-09-20 18:37 | PRG ---
DATE OF SERVICE: 09/20/2020 REASON FOR CONSULTATION: Cirrhosis, endocarditis. SUBJECTIVE: The patient states that over the last 12 to 24 hours he has been able to urinate a fair amount of fluid and feels that his breathing is a little bit better in addition to his lower extremity edema, although both continue to persist. He also continues to have conversational dyspnea in addition to increased abdominal distention, which may be contributing to the former. Otherwise, he has had approximately 4 semi-solid bowel movements today thus far per nursing staff while taking lactulose. Otherwise, he currently denies any nausea, vomiting, fevers, chills, hematemesis, melena, or hematochezia. OBJECTIVE: VITAL SIGNS: Temperature 97.8, pulse 99, blood pressure 118/53, respiratory rate 28, and saturating 98% on 4 L nasal cannula. GENERAL: The patient was lying in bed, in no acute distress. Alert and oriented x4. Positive conversational dyspnea. CARDIOVASCULAR: Tachycardic rate, but regular rhythm. RESPIRATORY: Clear to auscultation in the upper lung deng, but diminished breath sounds in the bilateral lower lung deng. ABDOMEN: Normoactive bowel sounds. Soft, [id number] distention with positive shifting dullness. EXTREMITIES: 3+ bilateral lower extremity edema extending up to mid thigh. LABORATORY DATA: CBC with a white blood cell count of 6.2, hemoglobin 7.1, hematocrit 23, and platelets 36. Chemistry with a sodium of 130, potassium 3.4, chloride 102, CO2 of 18, BUN 9, creatinine 0.7, and glucose 259. BNP 626. IMAGING DATA: No current GI imaging is available for review; however, the patient did undergo paracentesis earlier today with approximately 3.4 L of yellow cloudy fluid aspirated. ASSESSMENT AND PLAN: 1. Endocarditis. The patient is presenting with a history of heart valve vegetations, consistent with endocarditis, but unable to have valvular repair because of his elevated MELD score, carrying an approximate 70% mortality with cardiovascular surgery. 2. Decompensated cirrhosis (alcohol related). With the patient having a concurrent diagnosis of endocarditis, he is not currently a liver transplant candidate because of the ongoing infection. 3. Hepatic encephalopathy, currently controlled with lactulose and rifaximin administration. 4. Lower extremity edema and ascites, currently undergoing diuretic management with good urinary output and no evidence of renal dysfunction at this time. RECOMMENDATIONS: 1. Would continue the patient on rifaximin 550 mg b.i.d., but decrease the lactulose to 20 g once daily with a goal of having 3 to 4 bowel movements per day. 2. Continue the patient on current diuretic management. 3. Would follow up on the paracentesis fluid analysis for possible signs of SBP (albeit unlikely). 4. Would probably continue albumin administration for the next 24 hours given his larger volume paracentesis performed today. At this time, the patient is to be discharged to home hospice next week in light of his inability to have either cardiovascular surgery or liver transplant with one illness essentially cancelling on the other. We will sign off at this time. Please call with any questions. Job ID: [id number]
[2020-09-21] MEDS: Albumin 25% 25 GM/100 ML BOT IVPB SCH ×3 (03:44→20:55)
[2020-09-21] MEDS: Furosemide 40 MG/4 ML VIAL SLOW IVP SCH ×2 (06:19→14:41)
[2020-09-21] MEDS: HumaLOG 300 UNITS/3 ML VIAL SC PRN ×4 (06:27→21:18)
[2020-09-21] MEDS: Insulin Glargine 20 UNITS in Pre-Filled Syringe 1 EACH SC SCH (08:41)
[2020-09-21] MEDS: Pantoprazole 40 MG VIAL IVP SCH ×2 (08:42→20:52)
[2020-09-21] MEDS: Gabapentin 300 MG CAP PO SCH (08:42)
[2020-09-21] MEDS: Rifaximin 550 MG TAB PO SCH ×2 (08:43→20:52)
[2020-09-21] MEDS: Spironolactone 25 MG TAB PO SCH ×2 (08:43→20:52)
[2020-09-21] MEDS: Sucralfate 1 GM TAB PO SCH ×4 (08:44→20:51)
[2020-09-21] MEDS: Polyethylene Glycol 3350 17 GM Packet PO SCH (08:44)
[2020-09-21] MEDS: DAPTOmycin 500 MG in Sodium Chloride 0.9% 100 ML IVPB SCH (11:35)
--- NOTE | 2020-09-21 14:10 | PDOC.HOSPP ---
- Subjective Encounter Date: 09/21/20 Subjective: Patient reports she is feeling substantially better today. He has much more energy. Breathing much more comfortably. Eating well. Says he feels great. Has not felt this well in a long time. - Objective Vital Signs & Weight: Vital Signs (12 hours) Temp Pulse Resp BP BP Pulse Ox 09/21/20 11:40 97.9 F 108 H 24 H 158/65 H 100 09/21/20 07:25 98.1 F 104 H 24 H 145/66 H 95 09/21/20 03:44 98.4 F 106 H 24 H 124/56 L 94 L 09/21/20 02:55 97 Weight Weight 220 lb 9 oz Most Recent Monitor Data Heart Rate from ECG 96 I&O: 09/20/20 09/21/20 09/22/20 06:59 06:59 06:59 Intake Total 860 1592 320 Balance 860 1592 320 Result Diagrams: 09/20/20 06:31 09/20/20 06:31 Additional Labs: Accuchecks 09/21/20 09/21/20 09/20/20 11:38 06:25 20:51 POC Glucose 235 H 220 H 235 H 09/20/20 16:50 POC Glucose 228 H Hospitalist ROS - Medication Medications: Active Medications Generic Name Dose Route Start Last Admin Trade Name Freq PRN Reason Stop Dose Admin Albumin Human 25 gm 09/20/20 20:00 09/21/20 12:53 Albumin 25% 25 Gm/100 Ml Bot IVPB 09/21/20 20:01 25 gm 0400,1200,2000 HARPREET Administration Furosemide 40 mg 09/20/20 06:00 09/21/20 06:19 Furosemide 40 Mg/4 Ml Vial SLOW IVP 40 mg 0600,1400 HARPREET Administration Gabapentin 300 mg 09/16/20 09:00 09/21/20 08:42 Gabapentin 300 Mg Cap PO 300 mg DAILY HARPREET Administration Daptomycin 500 mg/ Sodium 100 mls @ 200 mls/hr 09/16/20 09:00 09/21/20 11:35 Chloride IVPB 10/03/20 09:01 100 mls 0900 HARPREET Administration Insulin Glargine 20 units/ 0.2 mls @ 0 mls/hr 09/20/20 09:00 09/21/20 08:41 Miscellaneous Medication SC 0.2 mls QAM HARPREET Administration Insulin Human Lispro 0 units 09/16/20 06:55 09/21/20 11:55 Humalog 300 Units/3 Ml Vial SC 3 units .MILD SLIDING SCALE PRN Administration Mild Correctional Scale Lactulose 20 gm 09/21/20 09:00 09/21/20 08:42 Lactulose 20 Gm/30 Ml Udcup PO 20 gm DAILY HARPREET Administration Loperamide HCl 2 mg 09/18/20 12:09 09/18/20 12:36 Loperamide Hcl 2 Mg Cap PO 2 mg DAILYPRN PRN Administration Diarrhea/Loose Stools Ondansetron HCl 4 mg 09/16/20 03:53 09/19/20 10:17 Ondansetron Pf 4 Mg/2 Ml Vial IVP 4 mg Q6H PRN Administration Nausea/Vomiting use 1st Pantoprazole Sodium 40 mg 09/16/20 09:00 09/21/20 08:42 Pantoprazole 40 Mg Vial IVP 40 mg Q12HR HARPREET Administration Polyethylene Glycol 17 gm 09/16/20 09:00 09/21/20 08:44 Polyethylene Glycol 3350 17 Gm Packet PO Not Given DAILY HARPREET Rifaximin 550 mg 09/17/20 21:00 09/21/20 08:43 Rifaximin 550 Mg Tab PO 550 mg BID HARPREET Administration Sodium Chloride 10 ml 09/17/20 21:00 09/21/20 08:44 Flush - Normal Saline 10 Ml Syringe IVF 10 ml Q12HR HARPREET Administration Spironolactone 100 mg 09/19/20 21:00 09/21/20 08:43 Spironolactone 25 Mg Tab PO 100 mg BID HARPREET Administration Sucralfate 1 gm 09/16/20 07:30 09/21/20 11:35 Sucralfate 1 Gm Tab PO 1 gm ACHS HARPREET Administration - Exam General Appearance: NAD, awake alert General - other findings: Jaundice Heart: RRR, no murmur, no gallops, no rubs, normal peripheral pulses Respiratory: CTAB, no wheezes, no rales, no ronchi, normal chest expansion, no tachypnea, normal percussion Gastrointestinal: soft, non-tender, non-distended, normal bowel sounds, no palpable masses, no hepatomegaly, no splenomegaly, no bruit Extremities: no cyanosis, no clubbing, 2+ LE edema Skin: normal turgor Musculoskeletal: generalized weakness Psychiatric: normal affect, normal behavior, A&O x 3 Hosp A/P (1) Cirrhosis of liver Code(s): K74.60 - UNSPECIFIED CIRRHOSIS OF LIVER Status: Chronic Qualifiers: Hepatic cirrhosis type: alcoholic cirrhosis Ascites presence: unspecified Qualified Code(s): K70.30 - Alcoholic cirrhosis of liver without ascites (2) Cirrhosis, alcoholic Code(s): K70.30 - ALCOHOLIC CIRRHOSIS OF LIVER WITHOUT ASCITES Status: Chronic Qualifiers: Ascites presence: without ascites Qualified Code(s): K70.30 - Alcoholic cirrhosis of liver without ascites (3) DM type 2 (diabetes mellitus, type 2) Status: Chronic Qualifiers: Diabetes mellitus shelter insulin use: with shelter use Diabetes mellitus complication status: without complication Qualified Code(s): E11.9 - Type 2 diabetes mellitus without complications; Z79.4 - computer terminal operator (current) use of insulin (4) Hypertension Code(s): I10 - ESSENTIAL (PRIMARY) HYPERTENSION Status: Chronic Qualifiers: Hypertension type: essential hypertension Qualified Code(s): I10 - Essential (primary) hypertension (5) Thrombocytopenia Code(s): D69.6 - THROMBOCYTOPENIA, UNSPECIFIED Status: Chronic (6) Hypokalemia Code(s): E87.6 - HYPOKALEMIA Status: Acute (7) Anemia Code(s): D64.9 - ANEMIA, UNSPECIFIED Status: Acute (8) Anemia Code(s): D64.9 - ANEMIA, UNSPECIFIED Status: Chronic Qualifiers: Anemia type: other cause Other causes of anemia: chronic disease, other Qualified Code(s): D63.8 - Anemia in other chronic diseases classified elsewhere (9) Aortic regurgitation Code(s): I35.1 - NONRHEUMATIC AORTIC (VALVE) INSUFFICIENCY Status: Acute (10) Cardiomyopathy Code(s): I42.9 - CARDIOMYOPATHY, UNSPECIFIED Status: Acute (11) 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 Code(s): I33.0 - ACUTE AND SUBACUTE INFECTIVE ENDOCARDITIS; B95.8 - UNSP STAPHYLOCOCCUS THE CAUSE OF DISEASES CLASSD ELSWHR Status: Acute (12) Hepatic encephalopathy Code(s): K72.90 - HEPATIC FAILURE, UNSPECIFIED WITHOUT COMA Status: Acute - Plan This is a 50-year-old male patient with a history of decompensated liver cirrhosis, recent Covid diagnosis, recent endocarditis currently ongoing treatment with daptomycin. Admitted with worsening shortness of breath since his recent discharge. He has ongoing diarrhea, anemia and severe thrombocytopenia He is generally stable but his overall outlook is poor. Given his decompensated liver disease with severe hematology complications which precludes him from any surgery including valve surgery, lack of intervention for his liver disease, Acute hypoxic respiratory failure: Secondary to late stage effects of COVID-19 pneumonia. May be some element of volume overload. He generally saturates 100% on room air but has persistently increased work of breathing. No PE on CTA. Continue supplemental oxygen. Diuresis. Patient has home oxygen. Infective endocarditis: Continue daptomycin through 09/22/2020. blood culture grew staphylococcus secrui on previous admission.. ID followappreciate input No evidence of persistent or recurrent infection. Severe aortic regurgitation: Secondary to infective endocarditis. Patient is not a candidate for surgical intervention given his decompensated liver failure and respiratory failure. Cardiomyopathy: Ejection fraction is 30 to 40%. There is severe aortic regurgitation secondary to vegetations from endocarditis. There is moderate to severe tricuspid regurgitation. Right ventricular systolic PA pressure is 64 mmHg consistent with moderate pulmonary hypertension Decompensated liver cirrhosis: With severe thrombocytopenia and ascites Continue lactulose and rifaximin GI consulted. Per GI recommendations, increased Lasix to 40 mg IV twice daily, Aldactone to 100 mg p.o. twice daily. Add albumin 25 mg IV every 8 hours. Low-sodium diet. Paracentesis performed on 09/20/2020 removing 3.4 L. Severe thrombocytopenia: Secondary to liver disease Transfuse if platelets are less than 20 Hem/onc following Anemia Chronic, multifactorial Had 2 units of PRBC Monitor H&H Transfuse if hemoglobin less than 7 Diarrhea Ongoing diarrhea of unclear etiology Needs to maintain lactulose and several loose bowel movements per day to prevent hepatic encephalopathy. Dose decreased to once daily. C. difficile is negative IV fluid hydrationcautiously Recent Covid infection Residual infiltrates on chest imaging. Persistent respiratory symptoms. Currently out of contact precaution window. We will continue monitoring. Hyponatremia Chronic Secondary to end-stage liver disease. Appears to be at his baseline. Hypokalemia Repletion as needed. Diabetes mellitus Poorly controlled. Continue to adjust insulin. Resume home dose of Glucotrol Left leg swelling this occurs intermitently according to patient will monitor repeat doppler USG if persistent after aggressive diuresis. CODE STATUSDNR. VTE prophylaxisSCDs for now Disposition: There was a hospice evaluation on 09/19/2020. There was some confusion about the conclusion of that meeting. Ultimately clarity was obtained on 09/20/2020 with help of the palliative care team. Family would like to pursue hospice care which can be initiated next week. Patient will be off of his daptomycin therapy in a couple of days. At that time he will be a candidate for home hospice.
[2020-09-22] MEDS: HumaLOG 300 UNITS/3 ML VIAL SC PRN ×2 (06:29→11:23)
[2020-09-22] MEDS: Furosemide 40 MG/4 ML VIAL SLOW IVP SCH (06:29)
[2020-09-22] MEDS: Sucralfate 1 GM TAB PO SCH (09:00)
[2020-09-22] MEDS: Insulin Glargine 20 UNITS in Pre-Filled Syringe 1 EACH SC SCH (10:07)
[2020-09-22] MEDS: Gabapentin 300 MG CAP PO SCH (10:08)
[2020-09-22] MEDS: Spironolactone 25 MG TAB PO SCH ×2 (10:08→20:23)
[2020-09-22] MEDS: Rifaximin 550 MG TAB PO SCH ×2 (10:08→20:22)
[2020-09-22] MEDS: DAPTOmycin 500 MG in Sodium Chloride 0.9% 100 ML IVPB SCH (10:09)
[2020-09-22 12:03] LABS: Hemoglobin 6.8 g/dL (14.0-18.0); Mean Corpuscular HGB CONC 30.6 g/dL (32.0-36.0); Mean Corpuscular Hemoglobin 29.9 pg (27.0-31.0); Mean Corpuscular Volume 97.7 fL (78.0-98.0); RBC Distribution Width 20.2 % (11.5-14.5); Red Blood Cell (RBC) Count 2.29 mill/uL (4.70-6.10)
[2020-09-22 12:27] LABS: Anisocytosis SLIGHT = 6-15 cells (100X) (0-5/hpf); Band 2 % (5-11); Hypochromia SLIGHT = 6-15 cells (100X) (0-5/hpf); Lymphocytes 10 % (21-51); MDiff Complete? YES; Mean Platelet Volume 10.4 fL (7.4-10.4); Monocytes 24 % (0-10); Neutrophil 59 % (42-75); Platelet Count 54 thou/uL (130-400); Platelet Morphology Comment Appears Decreased; Polychromasia SLIGHT = 2-3 cells (100X) (0-2/hpf); Reactive Lymphocytes 2 % (0-10); White Blood Cell (WBC) Count 4.2 thou/uL (4.8-10.8)
[2020-09-22 12:29] LABS: ALT (SGPT) 24 U/L (8-55); AST (SGOT) 30 U/L (5-34); Albumin 2.9 g/dL (3.5-5.0); Alkaline Phosphatase 210 U/L (40-110); Anion Gap 14 mmol/L (10-20); BUN (Urea Nitrogen) 7 mg/dL (8.4-25.7); Bilirubin, Total 12.6 mg/dL (0.2-1.2); Calc. Creatinine Clearance 190 mL/min (70-130); Calcium 8.4 mg/dL (7.8-10.44); Carbon Dioxide 19 mmol/L (22-29); Chloride 101 mmol/L (98-107); Globulin 2.7 g/dL (2.4-3.5); Glucose 246 mg/dL (70-105); Potassium 3.4 mmol/L (3.5-5.1); Protein, Total 5.6 g/dL (6.0-8.3); Sodium 131 mmol/L (136-145)
[2020-09-22] MEDS ORDERED: Potassium Chloride 20 MEQ TAB PO SCH (13:30)
--- NOTE | 2020-09-22 14:44 | PDOC.HOSPP ---
- Subjective Encounter Date: 09/22/20 Subjective: Feeling not quite as well today. Says he did not sleep as well last night. Overall doing okay. - Objective Vital Signs & Weight: Vital Signs (12 hours) Temp Pulse Resp BP BP Pulse Ox 09/22/20 11:17 97.9 F 111 H 22 H 122/42 L 99 09/22/20 07:37 98.2 F 110 H 16 117/64 100 09/22/20 04:01 98.2 F 109 H 18 134/55 L 99 Weight Weight 220 lb 9 oz Most Recent Monitor Data Heart Rate from ECG 96 I&O: 09/21/20 09/22/20 09/23/20 06:59 06:59 06:59 Intake Total 1592 680 Balance 1592 680 Result Diagrams: 09/22/20 11:24 09/22/20 11:24 Additional Labs: Accuchecks 09/22/20 09/22/20 09/21/20 11:17 05:18 18:37 POC Glucose 232 H 214 H 206 H 09/21/20 16:25 POC Glucose 227 H Hospitalist ROS - Medication Medications: Active Medications Generic Name Dose Route Start Last Admin Trade Name Freq PRN Reason Stop Dose Admin Gabapentin 300 mg 09/16/20 09:00 09/22/20 10:08 Gabapentin 300 Mg Cap PO 300 mg DAILY HARPREET Administration Daptomycin 500 mg/ Sodium 100 mls @ 200 mls/hr 09/16/20 09:00 09/22/20 10:09 Chloride IVPB 10/03/20 09:01 100 mls 0900 HARPREET Administration Insulin Glargine 20 units/ 0.2 mls @ 0 mls/hr 09/20/20 09:00 09/22/20 10:07 Miscellaneous Medication SC 0.2 mls QAM HARPREET Administration Insulin Human Lispro 0 units 09/16/20 06:55 09/22/20 11:23 Humalog 300 Units/3 Ml Vial SC 3 units .MILD SLIDING SCALE PRN Administration Mild Correctional Scale Lactulose 20 gm 09/21/20 09:00 09/22/20 10:07 Lactulose 20 Gm/30 Ml Udcup PO 20 gm DAILY HARPREET Administration Loperamide HCl 2 mg 09/18/20 12:09 09/18/20 12:36 Loperamide Hcl 2 Mg Cap PO 2 mg DAILYPRN PRN Administration Diarrhea/Loose Stools Ondansetron HCl 4 mg 09/16/20 03:53 09/19/20 10:17 Ondansetron Pf 4 Mg/2 Ml Vial IVP 4 mg Q6H PRN Administration Nausea/Vomiting use 1st Pantoprazole Sodium 40 mg 09/22/20 09:00 09/22/20 10:07 Pantoprazole 40 Mg Tab PO 40 mg DAILY HARPREET Administration Potassium Chloride 40 meq 09/22/20 13:30 09/22/20 14:20 Potassium Chloride 20 Meq Tab PO 09/22/20 15:30 40 meq NOW HARPREET Administration Rifaximin 550 mg 09/17/20 21:00 09/22/20 10:08 Rifaximin 550 Mg Tab PO 550 mg BID HARPREET Administration Sodium Chloride 10 ml 09/17/20 21:00 09/22/20 10:09 Flush - Normal Saline 10 Ml Syringe IVF 10 ml Q12HR HARPREET Administration Spironolactone 100 mg 09/19/20 21:00 09/22/20 10:08 Spironolactone 25 Mg Tab PO 100 mg BID HARPREET Administration - Exam General Appearance: NAD, awake alert General - other findings: Obese. Nasal cannula oxygen. Heart: RRR, no murmur, no gallops, no rubs, normal peripheral pulses Respiratory: CTAB, no wheezes, no rales, no ronchi, normal chest expansion, normal percussion, tachypneic Gastrointestinal: soft, non-tender, normal bowel sounds, no palpable masses, no hepatomegaly, no splenomegaly Gastrointestinal - other findings: Improved but persistent SATs. Extremities: no cyanosis, 2+ LE edema Neurological: no focal deficits Musculoskeletal: generalized weakness Psychiatric - other findings: Perhaps as a touch of encephalopathy today. Hosp A/P (1) Cirrhosis of liver Code(s): K74.60 - UNSPECIFIED CIRRHOSIS OF LIVER Status: Chronic Qualifiers: Hepatic cirrhosis type: alcoholic cirrhosis Ascites presence: unspecified Qualified Code(s): K70.30 - Alcoholic cirrhosis of liver without ascites (2) Cirrhosis, alcoholic Code(s): K70.30 - ALCOHOLIC CIRRHOSIS OF LIVER WITHOUT ASCITES Status: Chronic Qualifiers: Ascites presence: without ascites Qualified Code(s): K70.30 - Alcoholic cirrhosis of liver without ascites (3) DM type 2 (diabetes mellitus, type 2) Status: Chronic Qualifiers: Diabetes mellitus manager terminal insulin use: with manager terminal use Diabetes mellitus complication status: without complication Qualified Code(s): E11.9 - Type 2 diabetes mellitus without complications; Z79.4 - intermediate (current) use of insulin (4) Hypertension Code(s): I10 - ESSENTIAL (PRIMARY) HYPERTENSION Status: Chronic Qualifiers: Hypertension type: essential hypertension Qualified Code(s): I10 - Essential (primary) hypertension (5) Thrombocytopenia Code(s): D69.6 - THROMBOCYTOPENIA, UNSPECIFIED Status: Chronic (6) Hypokalemia Code(s): E87.6 - HYPOKALEMIA Status: Acute (7) Anemia Code(s): D64.9 - ANEMIA, UNSPECIFIED Status: Acute (8) Anemia Code(s): D64.9 - ANEMIA, UNSPECIFIED Status: Chronic Qualifiers: Anemia type: other cause Other causes of anemia: chronic disease, other Qualified Code(s): D63.8 - Anemia in other chronic diseases classified elsewhere (9) Aortic regurgitation Code(s): I35.1 - NONRHEUMATIC AORTIC (VALVE) INSUFFICIENCY Status: Acute (10) Cardiomyopathy Code(s): I42.9 - CARDIOMYOPATHY, UNSPECIFIED Status: Acute (11) 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 Code(s): I33.0 - ACUTE AND SUBACUTE INFECTIVE ENDOCARDITIS; B95.8 - UNSP STAPHYLOCOCCUS THE CAUSE OF DISEASES CLASSD ELSWHR Status: Acute (12) Hepatic encephalopathy Code(s): K72.90 - HEPATIC FAILURE, UNSPECIFIED WITHOUT COMA Status: Acute - Plan This is a 50-year-old male patient with a history of decompensated liver cirrhosis, recent Covid diagnosis, recent endocarditis currently ongoing treatm ent with daptomycin. Admitted with worsening shortness of breath since his recent discharge. He has ongoing diarrhea, anemia and severe thrombocytopenia He is generally stable but his overall outlook is poor. Given his decompensated liver disease with severe hematology complications which precludes him from any surgery including valve surgery, lack of intervention for his liver disease, Acute hypoxic respiratory failure: Secondary to late stage effects of COVID-19 pneumonia. May be some element of volume overload. He generally saturates 100% on room air but has persistently increased work of breathing. No PE on CTA. Continue supplemental oxygen. Diuresis. Patient has home oxygen. Infective endocarditis: Continue daptomycin through 09/22/2020. blood culture grew staphylococcus secrui on previous admission.. ID followappreciate input No evidence of persistent or recurrent infection. Severe aortic regurgitation: Secondary to infective endocarditis. Patient is not a candidate for surgical intervention given his decompensated liver failure and respiratory failure. Cardiomyopathy: Ejection fraction is 30 to 40%. There is severe aortic regurgitation secondary to vegetations from endocarditis. There is moderate to severe tricuspid regurgitation. Right ventricular systolic PA pressure is 64 mmHg consistent with moderate pulmonary hypertension Decompensated liver cirrhosis: With severe thrombocytopenia and ascites Continue lactulose and rifaximin GI consulted. Per GI recommendations, increased Lasix to 40 mg IV twice daily, Aldactone to 100 mg p.o. twice daily. Received over 3 days of IV albumin every 8 hours. Low-sodium diet. Paracentesis performed on 09/20/2020 removing 3.4 L. Severe thrombocytopenia: Secondary to liver disease Transfuse if platelets are less than 20 Hem/onc following Anemia Chronic, multifactorial Had 2 units of PRBC Monitor H&H Transfuse if hemoglobin less than 7 Diarrhea Ongoing diarrhea of unclear etiology Needs to maintain lactulose and several loose bowel movements per day to prevent hepatic encephalopathy. Dose decreased to once daily. C. difficile is negative IV fluid hydrationcautiously Recent Covid infection Residual infiltrates on chest imaging. Persistent respiratory symptoms. Currently out of contact precaution window. We will continue monitoring. Hyponatremia Chronic Secondary to end-stage liver disease. Appears to be at his baseline. Hypokalemia Repletion as needed. Diabetes mellitus Poorly controlled. Continue to adjust insulin. Resume home dose of Glucotrol Left leg swelling this occurs intermitently according to patient will monitor repeat doppler USG if persistent after aggressive diuresis. CODE STATUSDNR. VTE prophylaxisSCDs for now Disposition: There was a hospice evaluation on 09/19/2020. Initially this was not a viable option because the patient was taking the daptomycin. That discontinued on 09/10. The patient is likely maximized on medical benefit from being in the hospital. He will need to transition out of the hospital. The patient is not capable of functioning independently. He told me that he lives by himself and his mother live next-door and she came and helped him frequently. She is 80 years old herself. I did discuss the case with his sister Gabby at [phone], with his permission. She indicates that he has actually moved in with his mother. The patient himself was not quite ready to consider hospice as an option. I do believe it makes sense to consider home health with a hospice option. Unfortunately, the patient lacks resources. We will have case management work on this with the patient's family to determine the appropriate disposition.
[2020-09-22 19:03] LABS: Anion Gap 14 mmol/L (10-20); BUN (Urea Nitrogen) 6 mg/dL (8.4-25.7); Calc. Creatinine Clearance 217 mL/min (70-130); Calcium 8.3 mg/dL (7.8-10.44); Carbon Dioxide 20 mmol/L (22-29); Chloride 103 mmol/L (98-107); Glucose 122 mg/dL (70-105); Potassium 3.8 mmol/L (3.5-5.1); Sodium 133 mmol/L (136-145)
[2020-09-23] MEDS: Furosemide 40 MG TAB PO SCH (06:25)
[2020-09-23] MEDS: Insulin Glargine 20 UNITS in Pre-Filled Syringe 1 EACH SC SCH (09:58)
[2020-09-23] MEDS: Spironolactone 25 MG TAB PO SCH ×2 (09:58→21:52)
[2020-09-23] MEDS: Gabapentin 300 MG CAP PO SCH (09:58)
[2020-09-23] MEDS: Rifaximin 550 MG TAB PO SCH ×2 (09:59→21:52)
[2020-09-23] MEDS: HumaLOG 300 UNITS/3 ML VIAL SC PRN ×3 (11:25→22:03)
--- NOTE | 2020-09-23 14:31 | PDOC.PALPN ---
Palliative Progress Note - Subjective Sitting on side of bed, just finished with PT. O2 via NC, dependent. Assist with ADL. Confused. He has a camper on his mothers property, however he has lived recently with his mother secondary to elevated need for assist with ADL. Sister is patient primary caregiver and currently attempting to secure Medicaid coverage for patient. - Objective Vital Signs: Vital Signs - Most Recent Temp Pulse Resp BP Pulse Ox 98.4 F 111 H 18 118/54 L 100 09/23/20 11:33 09/23/20 11:33 09/23/20 11:33 09/23/20 11:33 09/23/20 11:33 - Physical Exam Constitutional: confusion, ill appearing HEENT: moist MMs, scleral icterus Respiratory: no wheezing, diminished lung sound, tachypnea Cardiovascular: RRR, diminished peripheral pulses Deviation from normal: Distended, soft non tender Genitourinary: continent Musculoskeletal: edema present Neurology: moves all 4 limbs Skin: fragile Deviation from normal: icteric Psychiatric: A&O x 3 Deviation from normal: mild encephalopathy - Assessment (1) Declining functional status Code(s): R53.81 - OTHER MALAISE Current Visit: Yes Status: Acute (2) Hepatic encephalopathy Code(s): K72.90 - HEPATIC FAILURE, UNSPECIFIED WITHOUT COMA Current Visit: Yes Status: Acute (3) Aortic valve insufficiency due to infection Code(s): I35.1 - NONRHEUMATIC AORTIC (VALVE) INSUFFICIENCY Current Visit: No Status: Acute (4) Hypokalemia Code(s): E87.6 - HYPOKALEMIA Current Visit: No Status: Acute (5) Palliative care encounter Code(s): Z51.5 - ENCOUNTER FOR PALLIATIVE CARE Current Visit: No Status: Acute (6) Anemia Code(s): D64.9 - ANEMIA, UNSPECIFIED Current Visit: No Status: Chronic Qualifiers: Anemia type: other cause Other causes of anemia: chronic disease, other Qualified Code(s): D63.8 - Anemia in other chronic diseases classified elsewhere (7) Cirrhosis of liver Code(s): K74.60 - UNSPECIFIED CIRRHOSIS OF LIVER Current Visit: No Status: Chronic Qualifiers: Hepatic cirrhosis type: alcoholic cirrhosis Ascites presence: unspecified Qualified Code(s): K70.30 - Alcoholic cirrhosis of liver without ascites (8) Cirrhosis, alcoholic Code(s): K70.30 - ALCOHOLIC CIRRHOSIS OF LIVER WITHOUT ASCITES Current Visit: No Status: Chronic Qualifiers: Ascites presence: without ascites Qualified Code(s): K70.30 - Alcoholic cirrhosis of liver without ascites - Plan Plan: Mr Crowley hopeful to transition to home setting to be with family. Has a one month old grandchild that will call him "Pop". Appears Mr Crowley has difficulty fully grasping multiple morbidities and disease trajectory. When a teach back method is used to assess knowledge he is unable to recall previous conversations related to inability for surgery for cardiac disease or transplant for liver. Mr Martinez sister is primary contact and is facilitating obtaining Medicaid for patient. Unfunded which poses barrier to optimal discharge. Confirms he currently has Oxygen in home setting. CM investigating on transition home with [facility] that has a hospice component, allowing for seamless transition if patient elects to seek hospice care. Palliative Care will sign off, if we can assist in revisiting Goal of care, complex decision making, or prognosis disease assist please re consult our team. Thank you for this very appropriate consult. Please also refer to Palliative Care notes in note section. [35] minutes spent on this encounter with >50% of the time in counseling and coordination of care. - ROS Constitutional: weakness ENT: other (Denies throat irritation, congestion) Respiratory: shortness of breath with extertion Cardiology: edema Gastrointestinal: bloating
--- NOTE | 2020-09-23 16:38 | PDOC.HOSPP ---
- Subjective Encounter Date: 09/23/20 Subjective: Feeling okay. He continues to have some drainage from the puncture site for the paracentesis in the right upper quadrant of the abdomen. Otherwise he has no major complaints. - Objective Vital Signs & Weight: Vital Signs (12 hours) Temp Pulse Resp BP Pulse Ox 09/23/20 11:33 98.4 F 111 H 18 118/54 L 100 09/23/20 09:45 98 09/23/20 07:53 97.9 F 116 H 18 108/45 L 98 09/23/20 05:18 99 Weight Weight 220 lb 9 oz Most Recent Monitor Data Heart Rate from ECG 96 I&O: 09/22/20 09/23/20 09/24/20 06:59 06:59 06:59 Intake Total 680 2620 440 Balance 680 2620 440 Result Diagrams: 09/22/20 11:24 09/22/20 18:31 Additional Labs: Accuchecks 09/23/20 09/23/20 09/23/20 16:10 10:16 05:45 POC Glucose 181 H 222 H 147 H 09/22/20 09/21/20 20:24 21:17 POC Glucose 116 H 283 H Hospitalist ROS - Medication Medications: Active Medications Generic Name Dose Route Start Last Admin Trade Name Freq PRN Reason Stop Dose Admin Furosemide 40 mg 09/23/20 07:30 09/23/20 06:25 Furosemide 40 Mg Tab PO 40 mg DAILY-AC HARPREET Administration Gabapentin 300 mg 09/16/20 09:00 09/23/20 09:58 Gabapentin 300 Mg Cap PO 300 mg DAILY HARPREET Administration Glipizide 10 mg 09/23/20 08:00 09/23/20 09:57 Glipizide Xl 5 Mg Tablet PO 10 mg QAM-WM HARPREET Administration Insulin Glargine 20 units/ 0.2 mls @ 0 mls/hr 09/20/20 09:00 09/23/20 09:58 Miscellaneous Medication SC 0.2 mls QAM HARPREET Administration Insulin Human Lispro 0 units 09/16/20 06:55 09/23/20 11:25 Humalog 300 Units/3 Ml Vial SC 3 units .MILD SLIDING SCALE PRN Administration Mild Correctional Scale Lactulose 20 gm 09/21/20 09:00 09/23/20 09:59 Lactulose 20 Gm/30 Ml Udcup PO 20 gm DAILY HARPREET Administration Loperamide HCl 2 mg 09/18/20 12:09 09/18/20 12:36 Loperamide Hcl 2 Mg Cap PO 2 mg DAILYPRN PRN Administration Diarrhea/Loose Stools Ondansetron HCl 4 mg 09/16/20 03:53 09/19/20 10:17 Ondansetron Pf 4 Mg/2 Ml Vial IVP 4 mg Q6H PRN Administration Nausea/Vomiting use 1st Pantoprazole Sodium 40 mg 09/22/20 09:00 09/23/20 09:59 Pantoprazole 40 Mg Tab PO 40 mg DAILY HARPREET Administration Rifaximin 550 mg 09/17/20 21:00 09/23/20 09:59 Rifaximin 550 Mg Tab PO 550 mg BID HARPREET Administration Sodium Chloride 10 ml 09/17/20 21:00 09/23/20 09:59 Flush - Normal Saline 10 Ml Syringe IVF Not Given Q12HR HARPREET Spironolactone 100 mg 09/19/20 21:00 09/23/20 09:58 Spironolactone 25 Mg Tab PO 100 mg BID HARPREET Administration - Exam General Appearance: NAD, awake alert Heart: RRR, no murmur, no gallops, no rubs, normal peripheral pulses Heart - other findings: Tachycardia Respiratory: CTAB, no wheezes, no rales, no ronchi, tachypneic Respiratory - other findings: Diminished at the bases. Gastrointestinal: soft, non-tender, normal bowel sounds, no palpable masses, distended (But soft.) Extremities: 2+ LE edema Skin: normal turgor Neurological: no focal deficits Musculoskeletal: generalized weakness Psychiatric: normal affect, normal behavior Hosp A/P (1) Cirrhosis of liver Code(s): K74.60 - UNSPECIFIED CIRRHOSIS OF LIVER Status: Chronic Qualifiers: Hepatic cirrhosis type: alcoholic cirrhosis Ascites presence: unspecified Qualified Code(s): K70.30 - Alcoholic cirrhosis of liver without ascites (2) Cirrhosis, alcoholic Code(s): K70.30 - ALCOHOLIC CIRRHOSIS OF LIVER WITHOUT ASCITES Status: Chronic Qualifiers: Ascites presence: without ascites Qualified Code(s): K70.30 - Alcoholic cirrhosis of liver without ascites (3) DM type 2 (diabetes mellitus, type 2) Status: Chronic Qualifiers: Diabetes mellitus physician pediatrician insulin use: with correction use Diabetes mellitus complication status: without complication Qualified Code(s): E11.9 - Type 2 diabetes mellitus without complications; Z79.4 - crew foreman (current) use of insulin (4) Hypertension Code(s): I10 - ESSENTIAL (PRIMARY) HYPERTENSION Status: Chronic Qualifiers: Hypertension type: essential hypertension Qualified Code(s): I10 - Essential (primary) hypertension (5) Thrombocytopenia Code(s): D69.6 - THROMBOCYTOPENIA, UNSPECIFIED Status: Chronic (6) Hypokalemia Code(s): E87.6 - HYPOKALEMIA Status: Acute (7) Anemia Code(s): D64.9 - ANEMIA, UNSPECIFIED Status: Acute (8) Anemia Code(s): D64.9 - ANEMIA, UNSPECIFIED Status: Chronic Qualifiers: Anemia type: other cause Other causes of anemia: chronic disease, other Qualified Code(s): D63.8 - Anemia in other chronic diseases classified elsewhere (9) Aortic regurgitation Code(s): I35.1 - NONRHEUMATIC AORTIC (VALVE) INSUFFICIENCY Status: Acute (10) Cardiomyopathy Code(s): I42.9 - CARDIOMYOPATHY, UNSPECIFIED Status: Acute (11) 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 Code(s): I33.0 - ACUTE AND SUBACUTE INFECTIVE ENDOCARDITIS; B95.8 - UNSP STAPHY LOCOCCUS THE CAUSE OF DISEASES CLASSD ELSWHR Status: Acute (12) Hepatic encephalopathy Code(s): K72.90 - HEPATIC FAILURE, UNSPECIFIED WITHOUT COMA Status: Acute - Plan This is a 50-year-old male patient with a history of decompensated liver cirrhosis, recent Covid diagnosis, recent endocarditis currently ongoing treatment with daptomycin. Admitted with worsening shortness of breath since his recent discharge. He has ongoing diarrhea, anemia and severe thrombocytopenia He is generally stable but his overall outlook is poor. Given his decompensated liver disease with severe hematology complications which precludes him from any surgery including valve surgery, lack of intervention for his liver disease, Acute hypoxic respiratory failure: Secondary to late stage effects of COVID-19 pneumonia. May be some element of volume overload. He generally saturates 100% on room air but has persistently increased work of breathing. No PE on CTA. Continue supplemental oxygen. Diuresis. Patient has home oxygen. Infective endocarditis: Continued daptomycin through 09/22/2020 at which time the course was completed. blood culture grew staphylococcus secrui on previous admission.. ID followappreciate input No evidence of persistent or recurrent infection. Severe aortic regurgitation: Secondary to infective endocarditis. Patient is not a candidate for surgical intervention given his decompensated liver failure and respiratory failure. Cardiomyopathy: Ejection fraction is 30 to 40%. There is severe aortic regurgitation secondary to vegetations from endocarditis. There is moderate to severe tricuspid regurgitation. Right ventricular systolic PA pressure is 64 mmHg consistent with moderate pu lmonary hypertension Decompensated liver cirrhosis: With severe thrombocytopenia and ascites Continue lactulose and rifaximin GI consulted. Per GI recommendations, increased Lasix to 40 mg IV twice daily, Aldactone to 100 mg p.o. twice daily. Received over 3 days of IV albumin every 8 hours. Low-sodium diet. Paracentesis performed on 09/20/2020 removing 3.4 L. Severe thrombocytopenia: Secondary to liver disease Transfuse if platelets are less than 20 Hem/onc following Anemia Chronic, multifactorial Had 2 units of PRBC on 09/16/2020. Hemoglobin did eventually drift back down. Was some debate about the patient's disposition. Possibly hospice. In the interim we will reassess the hemoglobin and transfuse if less than 7. Diarrhea Ongoing diarrhea of unclear etiology Needs to maintain lactulose and several loose bowel movements per day to prevent hepatic encephalopathy. Dose decreased to once daily. C. difficile is negative IV fluid hydrationcautiously Recent Covid infection Residual infiltrates on chest imaging. Persistent respiratory symptoms. Currently out of contact precaution window. We will continue monitoring. Hyponatremia Chronic Secondary to end-stage liver disease. Appears to be at his baseline. Hypokalemia Repletion as needed. Diabetes mellitus Poorly controlled. Continue to adjust insulin. Resume home dose of Glucotrol Left leg swelling this occurs intermitently according to patient will monitor repeat doppler USG if persistent after aggressive diuresis. CODE STATUSDNR. VTE prophylaxisSCDs for now Disposition: There was a hospice evaluation on 09/19/2020. Initially this was not a viable option because the patient was taking the daptomycin. That discontinued on 09/22/2020. The patient is likely maximized on medical benefit from being in the hospital. He will need to transition out of the hospital. The patient is not capable of functioning independently. He told me that he lives by himself and his mother live next-door and she came and helped him frequently. She is 80 years old herself. I did discuss the case with his sister Gabby at [phone], with his permission. She indicates that he has actually moved in with his mother. Discussed with case management. She in turn has talked to the patient and his sister and they are willing to have hospice come assess him again for home treatment.
[2020-09-23 16:56] LABS: Hemoglobin 6.1 g/dL (14.0-18.0); Mean Corpuscular HGB CONC 30.7 g/dL (32.0-36.0); Mean Corpuscular Hemoglobin 29.8 pg (27.0-31.0); Mean Corpuscular Volume 96.8 fL (78.0-98.0); Mean Platelet Volume 10.7 fL (7.4-10.4); Platelet Count 45 thou/uL (130-400); RBC Distribution Width 19.2 % (11.5-14.5); Red Blood Cell (RBC) Count 2.06 mill/uL (4.70-6.10); White Blood Cell (WBC) Count 4.1 thou/uL (4.8-10.8)
[2020-09-23 17:48] LABS: Anisocytosis SLIGHT = 6-15 cells (100X) (0-5/hpf); Band 3 % (5-11); Eosinophils 3 % (0-10); Lymphocytes 27 % (21-51); MDiff Complete? YES; Monocytes 15 % (0-10); Neutrophil 49 % (42-75); Ovalocytes SLIGHT = 2-5 cells (100X) (0-1/hpf); Platelet Morphology Comment Appears Decreased; Polychromasia MODERATE = 3-4 cells (100X) (0-2/hpf); Reactive Lymphocytes 1 % (0-10); Schistocytes SLIGHT = 2-5 cells (100X) (0-1/hpf); Spherocytes SLIGHT = 1-5 cells (100X) (None Seen); Target Cells SLIGHT = 2-5 cells (100X) (0-1/hpf)
[2020-09-24] MEDS: HumaLOG 300 UNITS/3 ML VIAL SC PRN ×4 (06:26→21:04)
[2020-09-24] MEDS: Furosemide 40 MG TAB PO SCH (06:26)
[2020-09-24] MEDS: Rifaximin 550 MG TAB PO SCH ×2 (10:02→20:26)
[2020-09-24] MEDS: Insulin Glargine 20 UNITS in Pre-Filled Syringe 1 EACH SC SCH (10:03)
[2020-09-24] MEDS: Gabapentin 300 MG CAP PO SCH (10:03)
[2020-09-24] MEDS: Spironolactone 25 MG TAB PO SCH ×2 (10:03→20:21)
[2020-09-24 11:01] LABS: Hemoglobin 7.5 g/dL (14.0-18.0); Mean Corpuscular HGB CONC 30.5 g/dL (32.0-36.0); Mean Corpuscular Hemoglobin 30.5 pg (27.0-31.0); Mean Platelet Volume 9.8 fL (7.4-10.4); Platelet Count 55 thou/uL (130-400); RBC Distribution Width 18.4 % (11.5-14.5); Red Blood Cell (RBC) Count 2.45 mill/uL (4.70-6.10); White Blood Cell (WBC) Count 4.6 thou/uL (4.8-10.8)
--- NOTE | 2020-09-24 17:49 | PDOC.HOSPP ---
- Subjective Encounter Date: 09/24/20 Subjective: Patient feels okay. He had a little bit of a nosebleed but says this is very common for him. - Objective Vital Signs & Weight: Vital Signs (12 hours) Temp Pulse Resp BP Pulse Ox 09/24/20 16:33 97.8 F 116 H 20 112/41 L 100 09/24/20 11:42 98.0 F 120 H 16 115/55 L 100 09/24/20 10:10 96 09/24/20 08:15 97.8 F 125 H 18 125/54 L 122 H Weight Weight 220 lb 9 oz Most Recent Monitor Data Heart Rate from ECG 96 NIBP 135/61 I&O: 09/23/20 09/24/20 09/25/20 06:59 06:59 06:59 Intake Total 2620 1570 480 Balance 2620 1570 480 Result Diagrams: 09/24/20 10:32 09/22/20 18:31 Additional Labs: Accuchecks 09/24/20 09/24/20 09/24/20 16:03 11:12 05:39 POC Glucose 167 H 189 H 175 H 09/23/20 21:58 POC Glucose 205 H Hospitalist ROS - Medication Medications: Active Medications Generic Name Dose Route Start Last Admin Trade Name Freq PRN Reason Stop Dose Admin Furosemide 40 mg 09/23/20 07:30 09/24/20 06:26 Furosemide 40 Mg Tab PO 40 mg DAILY-AC HARPREET Administration Gabapentin 300 mg 09/16/20 09:00 09/24/20 10:03 Gabapentin 300 Mg Cap PO 300 mg DAILY HARPREET Administration Glipizide 10 mg 09/23/20 08:00 09/24/20 10:02 Glipizide Xl 5 Mg Tablet PO 10 mg QAM-WM HARPREET Administration Insulin Glargine 20 units/ 0.2 mls @ 0 mls/hr 09/20/20 09:00 09/24/20 10:03 Miscellaneous Medication SC 0.2 mls QAM HARPREET Administration Insulin Human Lispro 0 units 09/16/20 06:55 09/24/20 16:30 Humalog 300 Units/3 Ml Vial SC 2 units .MILD SLIDING SCALE PRN Administration Mild Correctional Scale Lactulose 20 gm 09/21/20 09:00 09/24/20 10:03 Lactulose 20 Gm/30 Ml Udcup PO 20 gm DAILY HARPREET Administration Loperamide HCl 2 mg 09/18/20 12:09 09/18/20 12:36 Loperamide Hcl 2 Mg Cap PO 2 mg DAILYPRN PRN Administration Diarrhea/Loose Stools Ondansetron HCl 4 mg 09/16/20 03:53 09/19/20 10:17 Ondansetron Pf 4 Mg/2 Ml Vial IVP 4 mg Q6H PRN Administration Nausea/Vomiting use 1st Pantoprazole Sodium 40 mg 09/22/20 09:00 09/24/20 10:03 Pantoprazole 40 Mg Tab PO 40 mg DAILY HARPREET Administration Rifaximin 550 mg 09/17/20 21:00 09/24/20 10:02 Rifaximin 550 Mg Tab PO 550 mg BID HARPREET Administration Sodium Chloride 10 ml 09/17/20 21:00 09/24/20 10:04 Flush - Normal Saline 10 Ml Syringe IVF 10 ml Q12HR HARPREET Administration Spironolactone 100 mg 09/19/20 21:00 09/24/20 10:03 Spironolactone 25 Mg Tab PO 100 mg BID HARPREET Administration - Exam General Appearance: NAD, awake alert General - other findings: Obese. Jaundice. ENT - other findings: Small amount of dried blood around the nose. Heart: RRR, no murmur, no gallops, no rubs, normal peripheral pulses Heart - other findings: Tachycardic. Respiratory: CTAB, no wheezes, no rales, no ronchi, normal chest expansion, no tachypnea, normal percussion Respiratory - other findings: Very diminished at bases. Gastrointestinal: soft, non-tender, normal bowel sounds, no palpable masses, distended Gastrointestinal - other findings: Slow reaccumulation of ascites. Extremities - other findings: 3+ edema of the lower extremities bilaterally Skin: normal turgor Neurological: no focal deficits Musculoskeletal: generalized weakness Psychiatric: normal affect, normal behavior, A&O x 3 Hosp A/P (1) Cirrhosis of liver Code(s): K74.60 - UNSPECIFIED CIRRHOSIS OF LIVER Status: Chronic Qualifiers: Hepatic cirrhosis type: alcoholic cirrhosis Ascites presence: unspecified Qualified Code(s): K70.30 - Alcoholic cirrhosis of liver without ascites (2) Cirrhosis, alcoholic Code(s): K70.30 - ALCOHOLIC CIRRHOSIS OF LIVER WITHOUT ASCITES Status: Chronic Qualifiers: Ascites presence: without ascites Qualified Code(s): K70.30 - Alcoholic cirrhosis of liver without ascites (3) DM type 2 (diabetes mellitus, type 2) Status: Chronic Qualifiers: Diabetes mellitus watermelon inspector insulin use: with watermelon inspector use Diabetes mellitus complication status: without complication Qualified Code(s): E11.9 - Type 2 diabetes mellitus without complications; Z79.4 - watermelon inspector (current) use of insulin (4) Hypertension Code(s): I10 - ESSENTIAL (PRIMARY) HYPERTENSION Status: Chronic Qualifiers: Hypertension type: essential hypertension Qualified Code(s): I10 - Essential (primary) hypertension (5) Thrombocytopenia Code(s): D69.6 - THROMBOCYTOPENIA, UNSPECIFIED Status: Chronic (6) Hypokalemia Code(s): E87.6 - HYPOKALEMIA Status: Acute (7) Anemia Code(s): D64.9 - ANEMIA, UNSPECIFIED Status: Acute (8) Anemia Code(s): D64.9 - ANEMIA, UNSPECIFIED Status: Chronic Qualifiers: Anemia type: other cause Other causes of anemia: chronic disease, other Qualified Code(s): D63.8 - Anemia in other chronic diseases classified elsewhere (9) Aortic regurgitation Code(s): I35.1 - NONRHEUMATIC AORTIC (VALVE) INSUFFICIENCY Status: Acute (10) Cardiomyopathy Code(s): I42.9 - CARDIOMYOPATHY, UNSPECIFIED Status: Acute (11) 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 Code(s): I33.0 - ACUTE AND SUBACUTE INFECTIVE ENDOCARDITIS; B95.8 - UNSP STAPHYLOCOCCUS THE CAUSE OF DISEASES CLASSD ELSWHR Status: Acute (12) Hepatic encephalopathy Code(s): K72.90 - HEPATIC FAILURE, UNSPECIFIED WITHOUT COMA Status: Acute - Plan This is a 50-year-old male patient with a history of decompensated liver cirrhosis, recent Covid diagnosis, recent endocarditis currently ongoing treatment with daptomycin. Admitted with worsening shortness of breath since his recent discharge. He has ongoing diarrhea, anemia and severe thrombocytopenia He is generally stable but his overall outlook is poor. Given his decompensated liver disease with severe hematology complications which precludes him from any surgery including valve surgery, lack of intervention for his liver disease, Acute hypoxic respiratory failure: Secondary to late stage effects of COVID-19 pneumonia. May be some element of volume overload. He generally saturates 100% on room air but has persistently increased work of breathing. No PE on CTA. Continue supplemental oxygen. Diuresis. Patient has home oxygen. Infective endocarditis: Continued daptomycin through 09/22/2020 at which time the course was completed. blood culture grew staphylococcus secrui on previous admission.. ID followappreciate input No evidence of persistent or recurrent infection. Severe aortic regurgitation: Secondary to infective endocarditis. Patient is not a candidate for surgical intervention given his decompensated liver failure and respiratory failure. Cardiomyopathy: Ejection fraction is 30 to 40%. There is severe aortic regurgitation secondary to vegetations from endocarditis. There is moderate to severe tricuspid regurgitation. Right ventricular systolic PA pressure is 64 mmHg consistent with moderate pulmonary hypertension Decompensated liver cirrhosis: With severe thrombocytopenia and ascites Continue lactulose and rifaximin GI consulted. Per GI recommendations, increased Lasix to 40 mg IV twice daily, Aldactone to 100 mg p.o. twice daily. Subsequently converted over to fully oral regimen. Received over 3 days of IV albumin every 8 hours. Low-sodium diet. Paracentesis performed on 09/20/2020 removing 3.4 L. Severe thrombocytopenia: Secondary to liver disease Transfuse if platelets are less than 20 Hem/onc following Anemia Chronic, multifactorial Had 2 units of PRBC on 09/16/2020. Hemoglobin did eventually drift back down and he required an additional 1 unit of transfusion on 09/23/2020. Diarrhea Ongoing diarrhea of unclear etiology Needs to maintain lactulose and several loose bowel movements per day to prevent hepatic encephalopathy. Dose decreased to once daily. C. difficile is negative IV fluid hydrationcautiously Recent Covid infection Residual infiltrates on chest imaging. Persistent respiratory symptoms. Currently out of contact precaution window. We will continue monitoring. Hyponatremia Chronic Secondary to end-stage liver disease. Appears to be at his baseline. Hypokalemia Repletion as needed. Diabetes mellitus Poorly controlled. Continue to adjust insulin. Resume home dose of Glucotrol Left leg swelling this occurs intermitently according to patient will monitor repeat doppler USG if persistent after aggressive diuresis. CODE STATUSDNR. VTE prophylaxisSCDs for now Disposition: There was a hospice evaluation on 09/19/2020. Initially this was not a viable option because the patient was taking the daptomycin. That discontinued on 09/22/2020. The patient is likely maximized on medical benefit from being in the hospital. He will need to transition out of the hospital. The patient is not capable of functioning independently. He told me that he lives by himself and his mother live next-door and she came and helped him frequently. She is 80 years old herself. I did discuss the case with his sister Gabby at [phone], with his permission. She indicates that he has actually moved in with his mother. Discussed with case management. After she spoke with the patient again he asked to pursue hospice at home. Hospice did reassess him and the plan is for the patient to discharge to home on hospice. However, he needs certain e quipment to be in place. Therefore, the anticipated discharge date will be on 09/26/2020.
[2020-09-24] MEDS: HYDROcodone/Acetaminophen 5/325 mg Tablet PO PRN (20:27)
[2020-09-24] MEDS ORDERED: Oxymetazoline HCl 0.05% (30 ML BOT) NS PRN (20:47)
[2020-09-25] MEDS: Furosemide 40 MG TAB PO SCH (06:41)
[2020-09-25] MEDS: Spironolactone 25 MG TAB PO SCH ×2 (09:05→20:56)
[2020-09-25] MEDS: Gabapentin 300 MG CAP PO SCH (09:05)
[2020-09-25] MEDS: Rifaximin 550 MG TAB PO SCH ×2 (09:06→20:55)
[2020-09-25] MEDS: Insulin Glargine 20 UNITS in Pre-Filled Syringe 1 EACH SC SCH (10:47)
[2020-09-25] MEDS: HumaLOG 300 UNITS/3 ML VIAL SC PRN (13:02)
--- NOTE | 2020-09-25 16:12 | PDOC.HOSPP ---
- Subjective Encounter Date: 09/25/20 Encounter Time: 11:45 Subjective: Patient up in bed denies any complaints. - Objective Vital Signs & Weight: Vital Signs (12 hours) Temp Pulse Resp BP Pulse Ox 09/25/20 12:00 98.3 F 117 H 20 97/41 L 97 09/25/20 08:00 98.0 F 114 H 20 106/46 L 100 Weight Weight 220 lb 9 oz Most Recent Monitor Data Heart Rate from ECG 96 NIBP 135/61 I&O: 09/24/20 09/25/20 09/26/20 06:59 06:59 06:59 Intake Total 1570 1760 Balance 1570 1760 Result Diagrams: 09/26/20 07:41 09/26/20 07:41 Additional Labs: Accuchecks 09/25/20 09/25/20 09/24/20 12:20 05:58 20:47 POC Glucose 194 H 143 H 217 H Hospitalist ROS - Review of Systems Respiratory: reports: shortness of breath Cardiovascular: denies: chest pain, palpitations, orthopnea, paroxysmal noc. dyspnea, edema, light headedness, other Gastrointestinal: denies: nausea, vomiting, abdominal pain, diarrhea, constipation, melena, hematochezia, other Genitourinary: denies: dysuria, frequency, incontinence, hematuria, retention, other - Medication Medications: Active Medications Generic Name Dose Route Start Last Admin Trade Name Freq PRN Reason Stop Dose Admin Hydrocodone Bitart/Acetaminophen 1 tab 09/16/20 03:53 09/24/20 20:27 Hydrocodone/Acetaminophen 5/325 Mg Tablet PO 1 tab Q4H PRN Administration Moderate Pain (4-6) Furosemide 40 mg 09/23/20 07:30 09/25/20 06:41 Furosemide 40 Mg Tab PO 40 mg DAILY-AC HARPREET Administration Gabapentin 300 mg 09/16/20 09:00 09/25/20 09:05 Gabapentin 300 Mg Cap PO 300 mg DAILY HARPREET Administration Glipizide 10 mg 09/23/20 08:00 09/25/20 09:05 Glipizide Xl 5 Mg Tablet PO 10 mg QAM-WM HARPREET Administration Insulin Glargine 20 units/ 0.2 mls @ 0 mls/hr 09/20/20 09:00 09/25/20 10:47 Miscellaneous Medication SC 0.2 mls QAM HARPREET Administration Insulin Human Lispro 0 units 09/16/20 06:55 09/25/20 13:02 Humalog 300 Units/3 Ml Vial SC 2 units .MILD SLIDING SCALE PRN Administration Mild Correctional Scale Lactulose 20 gm 09/21/20 09:00 09/25/20 09:06 Lactulose 20 Gm/30 Ml Udcup PO 20 gm DAILY HARPREET Administration Loperamide HCl 2 mg 09/18/20 12:09 09/18/20 12:36 Loperamide Hcl 2 Mg Cap PO 2 mg DAILYPRN PRN Administration Diarrhea/Loose Stools Ondansetron HCl 4 mg 09/16/20 03:53 09/19/20 10:17 Ondansetron Pf 4 Mg/2 Ml Vial IVP 4 mg Q6H PRN Administration Nausea/Vomiting use 1st Pantoprazole Sodium 40 mg 09/22/20 09:00 09/25/20 09:06 Pantoprazole 40 Mg Tab PO 40 mg DAILY HARPREET Administration Rifaximin 550 mg 09/17/20 21:00 09/25/20 09:06 Rifaximin 550 Mg Tab PO 550 mg BID HARPREET Administration Sodium Chloride 10 ml 09/17/20 21:00 09/25/20 10:46 Flush - Normal Saline 10 Ml Syringe IVF 10 ml Q12HR HARPREET Administration Spironolactone 100 mg 09/19/20 21:00 09/25/20 09:05 Spironolactone 25 Mg Tab PO 100 mg BID HARPREET Administration - Exam Neck: negative: supple, symmetric, no JVD, no thyromegaly, no lymphadenopathy, no carotid bruit, JVD Heart: negative: RRR, no murmur, no gallops, no rubs, normal peripheral pulses, irregular, diminshed peripheral pulses, murmur present, II/IV, III/IV Respiratory: negative: CTAB, no wheezes, no rales, no ronchi, normal chest expansion, no tachypnea, normal percussion, rales, rhonchi, tachypneic, wheezes Gastrointestinal: negative: soft, non-tender, non-distended, normal bowel sounds, no palpable masses, no hepatomegaly, no splenomegaly, no bruit, no gua rding, no rigidity, tender to palpation, distended, diminished bowl sounds, voluntary guarding Extremities: 2+ LE edema Extremities - other findings: Left greater than right Hosp A/P - Plan (1) Cirrhosis of liver Code(s): K74.60 - UNSPECIFIED CIRRHOSIS OF LIVER Status: Chronic Qualifiers: Hepatic cirrhosis type: alcoholic cirrhosis Ascites presence: unspecified Qualified Code(s): K70.30 - Alcoholic cirrhosis of liver without ascites (2) Cirrhosis, alcoholic Code(s): K70.30 - ALCOHOLIC CIRRHOSIS OF LIVER WITHOUT ASCITES Status: Chronic Qualifiers: Ascites presence: without ascites Qualified Code(s): K70.30 - Alcoholic cirrhosis of liver without ascites (3) DM type 2 (diabetes mellitus, type 2) Status: Chronic Qualifiers: Diabetes mellitus detention insulin use: with detention use Diabetes mellitus complication status: without complication Qualified Code(s): E11.9 - Type 2 diabetes mellitus without complications; Z79.4 - group home (current) use of insulin (4) Hypertension Code(s): I10 - ESSENTIAL (PRIMARY) HYPERTENSION Status: Chronic Qualifiers: Hypertension type: essential hypertension Qualified Code(s): I10 - Essential (primary) hypertension (5) Thrombocytopenia Code(s): D69.6 - THROMBOCYTOPENIA, UNSPECIFIED Status: Chronic (6) Hypokalemia Code(s): E87.6 - HYPOKALEMIA Status: Acute (7) Anemia Code(s): D64.9 - ANEMIA, UNSPECIFIED Status: Acute (8) Anemia Code(s): D64.9 - ANEMIA, UNSPECIFIED Status: Chronic Qualifiers: Anemia type: other cause Other causes of anemia: chronic disease, other Qualified Code(s): D63.8 - Anemia in other chronic diseases classified elsewhere (9) Aortic regurgitation Code(s): I35.1 - NONRHEUMATIC AORTIC (VALVE) INSUFFICIENCY Status: Acute (10) Cardiomyopathy Code(s): I42.9 - CARDIOMYOPATHY, UNSPECIFIED Status: Acute (11) 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 Code(s): I33.0 - ACUTE AND SUBACUTE INFECTIVE ENDOCARDITIS; B95.8 - UNSP STAPHYLOCOCCUS THE CAUSE OF DISEASES CLASSD ELSWHR Status: Acute (12) Hepatic encephalopathy Code(s): K72.90 - HEPATIC FAILURE, UNSPECIFIED WITHOUT COMA Status: Acute - Plan This is a 50-year-old male patient with a history of decompensated liver cirrhosis, recent Covid diagnosis, recent endocarditis currently ongoing treatment with daptomycin. Admitted with worsening shortness of breath since his recent discharge. He has ongoing diarrhea, anemia and severe thrombocytopenia He is generally stable but his overall outlook is poor. Given his decompensated liver disease with severe hematology complications which precludes him from any surgery including valve surgery, lack of intervention for his liver disease, Acute hypoxic respiratory failure: Secondary to late stage effects of COVID-19 pneumonia. May be some element of volume overload. He generally saturates 100% on room air but has persistently increased work of breathing. No PE on CTA. Continue supplemental oxygen. Diuresis. Patient has home oxygen. Infective endocarditis: Continued daptomycin through 09/22/2020 at which time the course was completed. blood culture grew staphylococcus secrui on previous admission.. ID followappreciate input No evidence of persistent or recurrent infection. Severe aortic regurgitation: Secondary to infective endocarditis. Patient is not a candidate for surgical intervention given his decompensated liver failure and respiratory failure. Cardiomyopathy: Ejection fraction is 30 to 40%. There is severe aortic regurgitation secondary to vegetations from endocarditis. There is moderate to severe tricuspid regurgitation. Right ventricular systolic PA pressure is 64 mmHg consistent with moderate pulmonary hypertension Decompensated liver cirrhosis: With severe thrombocytopenia and ascites Continue lactulose and rifaximin GI consulted. Per GI recommendations, increased Lasix to 40 mg IV twice daily, Aldactone to 100 mg p.o. twice daily. Subsequently converted over to fully oral regimen. Received over 3 days of IV albumin every 8 hours. Low-sodium diet. Paracentesis performed on 09/20/2020 removing 3.4 L. Severe thrombocytopenia: Secondary to liver disease Transfuse if platelets are less than 20 Hem/onc following Anemia Chronic, multifactorial Had 2 units of PRBC on 09/16/2020. Hemoglobin did eventually drift back down and he required an additional 1 unit of transfusion on 09/23/2020. Diarrhea Ongoing diarrhea of unclear etiology Needs to maintain lactulose and several loose bowel movements per day to prevent hepatic encephalopathy. Dose decreased to once daily. C. difficile is negative IV fluid hydrationcautiously Recent Covid infection Residual infiltrates on chest imaging. Persistent respiratory symptoms. Currently out of contact precaution window. We will continue monitoring. Hyponatremia Chronic Secondary to end-stage liver disease. Appears to be at his baseline. Hypokalemia Repletion as needed. Diabetes mellitus Poorly controlled. Continue to adjust insulin. Resume home dose of Glucotrol Left leg swelling this occurs intermitently according to patient will monitor repeat doppler USG if persistent after aggressive diuresis. CODE STATUSDNR. VTE prophylaxisSCDs for now Disposition: There was a hospice evaluation on 09/19/2020. Initially this was not a viable option because the patient was taking the daptomycin. That discontinued on 09/22/2020. The patient is likely maximized on medical benefit from being in the hospital. He will need to transition out of the hospital. The patient is not capable of functioning independently. He told me that he lives by himself and his mother live next-door and she came and helped him frequently. She is 80 years old herself. I did discuss the case with his sister Gabby at [phone], with his permission. She indicates that he has actually moved in with his mother. Discussed with case management. After she spoke with the patient again he asked to pursue hospice at home. Hospice did reassess him and the plan is for the patient to discharge to home on hospice. However, he needs certain equipment to be in place. Therefore, the anticipated discharge date will be on 09/26/2020. 09/25 will monitor blood work. pt to go to hospice on .
[2020-09-25] MEDS: HYDROcodone/Acetaminophen 5/325 mg Tablet PO PRN (21:00)
[2020-09-26] MEDS: Furosemide 40 MG TAB PO SCH (06:47)
[2020-09-26] MEDS: HumaLOG 300 UNITS/3 ML VIAL SC PRN ×2 (06:47→11:51)
[2020-09-26] MEDS ORDERED: Ferrous Sulfate 325 MG TAB PO SCH (08:00)
[2020-09-26 08:09] LABS: ALT (SGPT) 23 U/L (8-55); AST (SGOT) 42 U/L (5-34); Albumin 2.2 g/dL (3.5-5.0); Alkaline Phosphatase 231 U/L (40-110); Anion Gap 13 mmol/L (10-20); BUN (Urea Nitrogen) 11 mg/dL (8.4-25.7); Calc. Creatinine Clearance 217 mL/min (70-130); Carbon Dioxide 22 mmol/L (22-29); Chloride 102 mmol/L (98-107); Globulin 3.2 g/dL (2.4-3.5); Glucose 143 mg/dL (70-105); Magnesium 1.7 mg/dL (1.6-2.6); Potassium 4.6 mmol/L (3.5-5.1); Protein, Total 5.4 g/dL (6.0-8.3); Sodium 132 mmol/L (136-145)
[2020-09-26 08:10] LABS: Hemoglobin 6.7 g/dL (14.0-18.0); Mean Corpuscular Hemoglobin 29.2 pg (27.0-31.0); Mean Corpuscular Volume 97.1 fL (78.0-98.0); Platelet Count 24 thou/uL (130-400); RBC Distribution Width 18.7 % (11.5-14.5); Red Blood Cell (RBC) Count 2.29 mill/uL (4.70-6.10); White Blood Cell (WBC) Count 5.2 thou/uL (4.8-10.8)
[2020-09-26] MEDS ORDERED: Magnesium 2 GM/50 ML 2 GM in Premix Bag 1 BAG IVPB SCH (08:45)
[2020-09-26 08:51] LABS: Band 13 % (5-11); Bite Cells SLIGHT = 2-5 cells (100X) (0-1/hpf); Eosinophils 2 % (0-10); Hypochromia SLIGHT = 6-15 cells (100X) (0-5/hpf); Lymphocytes 24 % (21-51); MDiff Complete? YES; Monocytes 12 % (0-10); Myelocyte 2 % (0-0); Neutrophil 46 % (42-75); Platelet Morphology Comment Appears Decreased; Polychromasia SLIGHT = 2-3 cells (100X) (0-2/hpf); Schistocytes SLIGHT = 2-5 cells (100X) (0-1/hpf)
[2020-09-26] MEDS: Insulin Glargine 20 UNITS in Pre-Filled Syringe 1 EACH SC SCH (09:32)
[2020-09-26] MEDS: Gabapentin 300 MG CAP PO SCH (09:32)
[2020-09-26] MEDS: Spironolactone 25 MG TAB PO SCH (09:33)
[2020-09-26] MEDS: Rifaximin 550 MG TAB PO SCH (09:34)
[2020-09-26 11:30] VITALS: BP 108/54; TEMP 97.4
--- NOTE | 2020-09-28 16:04 | EKG ---
Test Reason : Blood Pressure : / mmHG Vent. Rate : 103 BPM Atrial Rate : 103 BPM P-R Int : 194 ms QRS Dur : 116 ms QT Int : 374 ms P-R-T Axes : 044 -13 025 degrees QTc Int : 489 ms Sinus tachycardia Left ventricular hypertrophy with QRS widening Inferior infarct , age undetermined Abnormal ECG Confirmed by NUPUR MELISSA DO ([id number]), technical editor NORBERTO SAAB ([id number]) on 09/28/2020 4:03:48 PM Referred By: Confirmed By:NUPUR MELISSA DO
== END 2020-09-26 15:25 | disposition hospice, home (50) | DRG 189 ==
LOC: ERS 21:30 → 3SE 09-16 01:19 → SJJU 09-21 18:17
PROVIDERS: ADMIT Internal Medicine; ATTEND Internal Medicine
PROC: 0W9G3ZZ Drainage of Peritoneal Cavity, Percutaneous Approach (ICD-10-PCS; principal; 2020-09-20)
PROC: 30233N1 Transfusion of Nonautologous Red Blood Cells into Peripheral Vein, Percutaneous Approach (ICD-10-PCS; 2020-09-23)
DX: J96.01 Acute respiratory failure with hypoxia (principal); I33.0 Acute and subacute infective endocarditis; K72.00 Acute and subacute hepatic failure without coma; E87.1 Hypo-osmolality and hyponatremia; Z66 Do not resuscitate; Z51.5 Encounter for palliative care; D68.9 Coagulation defect, unspecified; I42.9 Cardiomyopathy, unspecified; K70.31 Alcoholic cirrhosis of liver with ascites; E11.9 Type 2 diabetes mellitus without complications; I10 Essential (primary) hypertension; E87.6 Hypokalemia; F41.9 Anxiety disorder, unspecified; D69.59 Other secondary thrombocytopenia; R53.81 Other malaise; I27.20 Pulmonary hypertension, unspecified; I08.2 Rheumatic disorders of both aortic and tricuspid valves; R19.7 Diarrhea, unspecified; M79.89 Other specified soft tissue disorders; B95.8 Unspecified staphylococcus as the cause of diseases classified elsewhere; D63.8 Anemia in other chronic diseases classified elsewhere; F32.9 Major depressive disorder, single episode, unspecified; Z87.891 Personal history of nicotine dependence; Z88.0 Allergy status to penicillin; Z88.8 Allergy status to other drugs, medicaments and biological substances; Z79.4 Long term (current) use of insulin; Z86.19 Personal history of other infectious and parasitic diseases; Z98.890 Other specified postprocedural states
CPT/HCPCS: 36415; 36416; 36430; 49083; 71045; 71275; 80048; 80053; 80076; 81003; 82140; 82247; 82550; 83605; 83615; 83735; 83880; 84100; 84132; 84484; 84550; 85025; 85027; 85060; 85610; 86140; 86850; 86900; 86901; 87040; 87070; 87149; 87205; 87324; 87449; 89051; 93005; C9113; J0878; J1815; J1940; J2405; J3475; J3490; P9016; P9047; Q9967